=== PATIENT | male | born 1950 | race Caucasian/White ===

== ENCOUNTER 2023-01-11 10:25 | Emergency (ER) | payer OTHER ==
--- OUTSIDE RECORDS SUMMARY | 2023-01-11 10:33 | XMS REPORT | Continuity of Care Document ---
:1950 Author Organization [facility] t Address [address] [place] [address] [place] [id number] Care Team Providers Name Role Phone Cheikh Gutierrez Attending Clinician Unavailable Cheikh Gutierrez Admitting Clinician Unavailable Physician, No Primary or Family Admitting Clinician Unavaila ble Payers Payer Name Policy Type Policy Number Effective Date Expiration Date S ource Problems This patient has no known problems. Allergies, Adverse Reactions, Alerts Allergy Allergy Status Severity Reaction(s) Onset Inactive Treating Comm ents Source Name Type Date Date Clinician No Known DA Active U 2021-07 [facility]- Clear s 00:00: [place] 00 [facility] No Known DA Active U [facility] - [place] s 00:00: d [address] [place] [address] No Known DA Active U 2018- [facility] 2-08 Clear s 00:00: [place] 00 [facility] Medications This patient has no known medications. Procedures This patient has no known procedures. Encounters Start End Encounter Admission Attending Care Care Encounter Source Date/Time Date/Time Type Type Clinicians Facility Department ID 2022-05-30 2022-06-11 Inpatient EM LETY Gutierrez INTE.02 [id number] [facility] 01:41:00 13:02:00 Cheikh 62 [facility] 2022-05-31 2022-05-31 Outpatient EDILIA Gutierrez LABO [id number] [facility] 07:53:00 07:53:00 Cheikh 65 [facility] Results Test Description Test Time Test Comments Results Result Comments Source GLUCOSE BEDSIDE TESTING 2022-06-11 08:24:00 Test Item Value Reference Range Interpretation Comme nts GLUCOSE BEDSIDE TESTING (test code = GLUBED) 139 mg/dL 70-110 H GLUCOSE BEDSIDE [id number] 21:09:00 Test Item Value Reference Range Interpretation Comments GLUCOSE BEDSIDE TESTING (test code 140 mg/dL 70-110 H = GLUBED) GLUCOSE BEDSIDE [id number] 17:24:00 Test Item Value Reference Range Interpretation Comments GLUCOSE BEDSIDE TESTING (test code 161 mg/dL 70-110 H = GLUBED) GLUCOSE BEDSIDE [id number] 12:02:00 Test Item Value Reference Range Interpretation Comments GLUCOSE BEDSIDE TESTING (test code 174 mg/dL 70-110 H = GLUBED) GLUCOSE BEDSIDE [id number] 08:11:00 Test Item Value Reference Range Interpretation Comments GLUCOSE BEDSIDE TESTING (test code 206 mg/dL 70-110 H = GLUBED) GLUCOSE BEDSIDE [id number] 20:56:00 Test Item Value Reference Range Interpretation Comments GLUCOSE BEDSIDE TESTING (test code 185 mg/dL 70-110 H = GLUBED) GLUCOSE BEDSIDE [id number] 16:18:00 Test Item Value Reference Range Interpretation Comments GLUCOSE BEDSIDE TESTING (test code = 77 mg/dL 70-110 N GLUBED) GLUCOSE BEDSIDE [id number] 11:27:00 Test Item Value Reference Range Interpretation Comments GLUCOSE BEDSIDE TESTING (test code 206 mg/dL 70-110 H = GLUBED) GLUCOSE BEDSIDE [id number] 20:22:00 Test Item Value Reference Range Interpretation Comments GLUCOSE BEDSIDE TESTING (test code 111 mg/dL 70-110 H = GLUBED) GLUCOSE BEDSIDE [id number] 17:12:00 Test Item Value Reference Range Interpretation Comments GLUCOSE BEDSIDE TESTING (test code 189 mg/dL 70-110 H = GLUBED) GLUCOSE BEDSIDE [id number] 11:37:00 Test Item Value Reference Range Interpretation Comments GLUCOSE BEDSIDE TESTING (test code 140 mg/dL 70-110 H = GLUBED) GLUCOSE BEDSIDE [id number] 08:13:00 Test Item Value Reference Range Interpretation Comments GLUCOSE BEDSIDE TESTING (test code = 86 mg/dL 70-110 N GLUBED) GLUCOSE BEDSIDE [id number] 21:00:00 Test Item Value Reference Range Interpretation Comments GLUCOSE BEDSIDE TESTING (test code 105 mg/dL 70-110 N = GLUBED) GLUCOSE BEDSIDE [id number] 16:42:00 Test Item Value Reference Range Interpretation Comments GLUCOSE BEDSIDE TESTING (test code 164 mg/dL 70-110 H = GLUBED) GLUCOSE BEDSIDE [id number] 12:33:00 Test Item Value Reference Range Interpretation Comments GLUCOSE BEDSIDE TESTING (test code 142 mg/dL 70-110 H = GLUBED) GLUCOSE BEDSIDE [id number] 07:44:00 Test Item Value Reference Range Interpretation Comments GLUCOSE BEDSIDE TESTING (test code 131 mg/dL 70-110 H = GLUBED) GLUCOSE BEDSIDE [id number] 20:25:00 Test Item Value Reference Range Interpretation Comments GLUCOSE BEDSIDE TESTING (test code 147 mg/dL 70-110 H = GLUBED) GLUCOSE BEDSIDE [id number] 17:00:00 Test Item Value Reference Range Interpretation Comments GLUCOSE BEDSIDE TESTING (test code 181 mg/dL 70-110 H = GLUBED) GLUCOSE BEDSIDE [id number] 11:40:00 Test Item Value Reference Range Interpretation Comments GLUCOSE BEDSIDE TESTING (test code 160 mg/dL 70-110 H = GLUBED) GLUCOSE BEDSIDE [id number] 07:25:00 Test Item Value Reference Range Interpretation Comments GLUCOSE BEDSIDE TESTING (test code 129 mg/dL 70-110 H = GLUBED) GLUCOSE BEDSIDE [id number] 22:36:00 Test Item Value Reference Range Interpretation Comments GLUCOSE BEDSIDE TESTING (test code 157 mg/dL 70-110 H = GLUBED) GLUCOSE BEDSIDE [id number] 12:18:00 Test Item Value Reference Range Interpretation Comments GLUCOSE BEDSIDE TESTING (test code 178 mg/dL 70-110 H = GLUBED) GLUCOSE BEDSIDE [id number] 08:12:00 Test Item Value Reference Range Interpretation Comments GLUCOSE BEDSIDE TESTING (test code 122 mg/dL 70-110 H = GLUBED) GLUCOSE BEDSIDE [id number] 05:55:00 Test Item Value Reference Range Interpretation Comments GLUCOSE BEDSIDE TESTING (test code 146 mg/dL 70-110 H = GLUBED) GLUCOSE BEDSIDE [id number] 22:17:00 Test Item Value Reference Range Interpretation Comments GLUCOSE BEDSIDE TESTING (test code 154 mg/dL 70-110 H = GLUBED) GLUCOSE BEDSIDE [id number] 17:19:00 Test Item Value Reference Range Interpretation Comments GLUCOSE BEDSIDE TESTING (test code 170 mg/dL 70-110 H = GLUBED) GLUCOSE BEDSIDE [id number] 11:47:00 Test Item Value Reference Range Interpretation Comments GLUCOSE BEDSIDE TESTING (test code 139 mg/dL 70-110 H = GLUBED) GLUCOSE BEDSIDE [id number] 06:51:00 Test Item Value Reference Range Interpretation Comments GLUCOSE BEDSIDE TESTING (test code = 97 mg/dL 70-110 N GLUBED) BASIC METABOLIC [id number] 04:49:00 Test Item Value Reference Range Interpretation Comments SODIUM (test code 131 mmol/L 134-147 L = NA) POTASSIUM (test 3.9 mmol/L 3.4-5.0 N code = K) CHLORIDE (test 101 mmol/L 100-108 N code = CL) CARBON DIOXIDE 23 mmol/L 21-32 N (test code = CO2) ANION GAP (test 7.0 GAP calc 4.0-15.0 N code = GAP) GLUCOSE (test code 108 MG/DL 70-110 N = GLU) BLOOD UREA 8 MG/DL 7-18 N NITROGEN (test code = BUN) GLOMERULAR >=60 max >60 The Glomerular FILTRATION RATE estimate estGFR Filtratio n Rate is a (test code = GFR) calculated parameterbased on serum Creatinin e, patient age and sex. GFR valuesless than 60 mL/min/1.73 square meters are lisbet cative ofChronic Kidne y Disease. Values less than 15 mL/min/1.73squa re meters indicate Kidney failure. The calculation for GFR is based on the CK D-EPI (2020) calculat ion. This formulais race indifferent and is the recommended formula for GFR by the National Kidney Foundation for Adults.The GFR will not calculate i f the sex is unknown or if thepatient's ag e is <18 years. CREATININE (test 0.6 MG/DL 0.8-1.3 L code = CREAT) CALCIUM (test code 7.3 MG/DL 8.5-10.1 L = CA) CBC W/AUTO [id number] 04:10:00 Test Item Value Reference Range Interpretation Comments WHITE BLOOD CELL (test code = 6.1 K/mm3 3.5-11.0 N WBC) RED BLOOD CELL (test code = 3.47 M/mm3 4.70-6.10 L RBC) HEMOGLOBIN (test code = HGB) 8.5 G/DL 12.3-15.9 L HEMATOCRIT (test code = HCT) 26.9 % 35.8-46.7 L MEAN CELL VOLUME (test code = 77.5 Fl 86.3-98.9 L MCV) MEAN CELL HGB (test code = MCH) 24.5 pg 28.9-34.4 L MEAN CELL HGB CONCETRATION 31.6 G/DL 32.1-34.5 L (test code = MCHC) RED CELL DISTRIBUTION WIDTH 18.4 SD 11.5-14.5 H (test code = RDW) PLATELET COUNT (test code = 143 K/mm3 150-450 L PLT) MEAN PLATELET VOLUME (test code 10.70 fL 7.0-9.6 H = MPV) NEUTROPHIL % (test code = NT%) 69.1 % 40-76 N IMMATURE GRANULOCYTE % (test 1.1 % 0.0-5.0 N code = IG%) LYMPHOCYTE % (test code = LY%) 13.6 % 20.5-51.1 L MONOCYTE % (test code = MO%) 10.3 % 1.7-9.3 H EOSINOPHIL % (test code = EO%) 4.9 % 0.0-6.0 N BASOPHIL % (test code = BA%) 1.0 % 0.0-2.0 N NUCLEATED RBC % (test code = 0.0 /100WBC% 0.0-1.0 N NRBC%) NEUTROPHIL # (test code = NT#) 4.2 K/mm3 1.8-7.6 N IMMATURE GRANULOCYTE # (test 0.07 x10 3/uL 0.00-0.03 H code = IG#) LYMPHOCYTE # (test code = LY#) 0.8 K/mm3 0.6-3.0 N MONOCYTE # (test code = MO#) 0.6 K/mm3 0.2-1.5 N EOSINOPHIL # (test code = EO#) 0.3 K/mm3 0.0-0.4 N BASOPHIL # (test code = BA#) 0.1 K/mm3 0.0-0.2 N NUCLEATED RBC # (test code = 0.0 K/mm3 0.00-0.01 N NRBC#) MANUAL DIFF REQUIRED (test code NO DIFF/SCN CRITERIA = MDIFF) GLUCOSE BEDSIDE [id number] 20:43:00 Test Item Value Reference Range Interpretation Comments GLUCOSE BEDSIDE TESTING (test code 218 mg/dL 70-110 H = GLUBED) GLUCOSE BEDSIDE [id number] 18:31:00 Test Item Value Reference Range Interpretation Comments GLUCOSE BEDSIDE TESTING (test code 118 mg/dL 70-110 H = GLUBED) GLUCOSE BEDSIDE [id number] 11:16:00 Test Item Value Reference Range Interpretation Comments GLUCOSE BEDSIDE TESTING (test code 179 mg/dL 70-110 H = GLUBED) GLUCOSE BEDSIDE [id number] 08:01:00 Test Item Value Reference Range Interpretation Comments GLUCOSE BEDSIDE TESTING (test code 126 mg/dL 70-110 H = GLUBED) CBC W/AUTO [id number] 06:17:00 Test Item Value Reference Range Interpretation Comments WHITE BLOOD CELL (test code = 7.7 K/mm3 3.5-11.0 N WBC) RED BLOOD CELL (test code = 3.77 M/mm3 4.70-6.10 L RBC) HEMOGLOBIN (test code = HGB) 9.2 G/DL 12.3-15.9 L HEMATOCRIT (test code = HCT) 29.0 % 35.8-46.7 L MEAN CELL VOLUME (test code = 76.9 Fl 86.3-98.9 L MCV) MEAN CELL HGB (test code = MCH) 24.4 pg 28.9-34.4 L MEAN CELL HGB CONCETRATION 31.7 G/DL 32.1-34.5 L (test code = MCHC) RED CELL DISTRIBUTION WIDTH 17.0 SD 11.5-14.5 H (test code = RDW) PLATELET COUNT (test code = 195 K/mm3 150-450 N PLT) MEAN PLATELET VOLUME (test code 11.00 fL 7.0-9.6 H = MPV) NEUTROPHIL % (test code = NT%) 67.6 % 40-76 N IMMATURE GRANULOCYTE % (test 0.8 % 0.0-5.0 N code = IG%) LYMPHOCYTE % (test code = LY%) 13.4 % 20.5-51.1 L MONOCYTE % (test code = MO%) 9.3 % 1.7-9.3 N EOSINOPHIL % (test code = EO%) 7.9 % 0.0-6.0 H BASOPHIL % (test code = BA%) 1.0 % 0.0-2.0 N NUCLEATED RBC % (test code = 0.0 /100WBC% 0.0-1.0 N NRBC%) NEUTROPHIL # (test code = NT#) 5.2 K/mm3 1.8-7.6 N IMMATURE GRANULOCYTE # (test 0.06 x10 3/uL 0.00-0.03 H code = IG#) LYMPHOCYTE # (test code = LY#) 1.0 K/mm3 0.6-3.0 N MONOCYTE # (test code = MO#) 0.7 K/mm3 0.2-1.5 N EOSINOPHIL # (test code = EO#) 0.6 K/mm3 0.0-0.4 H BASOPHIL # (test code = BA#) 0.1 K/mm3 0.0-0.2 N NUCLEATED RBC # (test code = 0.0 K/mm3 0.00-0.01 N NRBC#) MANUAL DIFF REQUIRED (test code NO DIFF/SCN CRITERIA = MDIFF) GLUCOSE BEDSIDE [id number] 20:13:00 Test Item Value Reference Range Interpretation Comments GLUCOSE BEDSIDE TESTING (test code 221 mg/dL 70-110 H = GLUBED) GLUCOSE BEDSIDE [id number] 16:23:00 Test Item Value Reference Range Interpretation Comments GLUCOSE BEDSIDE TESTING (test code 128 mg/dL 70-110 H = GLUBED) GLUCOSE BEDSIDE [id number] 11:31:00 Test Item Value Reference Range Interpretation Comments GLUCOSE BEDSIDE TESTING (test code 188 mg/dL 70-110 H = GLUBED) GLUCOSE BEDSIDE [id number] 07:44:00 Test Item Value Reference Range Interpretation Comments GLUCOSE BEDSIDE TESTING (test code 168 mg/dL 70-110 H = GLUBED) CBC W/AUTO [id number] 02:01:00 Test Item Value Reference Range Interpretation Comments WHITE BLOOD CELL (test code = 6.5 K/mm3 3.5-11.0 N WBC) RED BLOOD CELL (test code = 3.80 M/mm3 4.70-6.10 L RBC) HEMOGLOBIN (test code = HGB) 9.2 G/DL 12.3-15.9 L HEMATOCRIT (test code = HCT) 29.7 % 35.8-46.7 L MEAN CELL VOLUME (test code = 78.2 Fl 86.3-98.9 L MCV) MEAN CELL HGB (test code = MCH) 24.2 pg 28.9-34.4 L MEAN CELL HGB CONCETRATION 31.0 G/DL 32.1-34.5 L (test code = MCHC) RED CELL DISTRIBUTION WIDTH 16.7 SD 11.5-14.5 H (test code = RDW) PLATELET COUNT (test code = 180 K/mm3 150-450 N PLT) MEAN PLATELET VOLUME (test code 9.90 fL 7.0-9.6 H = MPV) NEUTROPHIL % (test code = NT%) 70.8 % 40-76 N IMMATURE GRANULOCYTE % (test 0.6 % 0.0-5.0 N code = IG%) LYMPHOCYTE % (test code = LY%) 11.9 % 20.5-51.1 L MONOCYTE % (test code = MO%) 9.6 % 1.7-9.3 H EOSINOPHIL % (test code = EO%) 6.2 % 0.0-6.0 H BASOPHIL % (test code = BA%) 0.9 % 0.0-2.0 N NUCLEATED RBC % (test code = 0.0 /100WBC% 0.0-1.0 N NRBC%) NEUTROPHIL # (test code = NT#) 4.6 K/mm3 1.8-7.6 N IMMATURE GRANULOCYTE # (test 0.04 x10 3/uL 0.00-0.03 H code = IG#) LYMPHOCYTE # (test code = LY#) 0.8 K/mm3 0.6-3.0 N MONOCYTE # (test code = MO#) 0.6 K/mm3 0.2-1.5 N EOSINOPHIL # (test code = EO#) 0.4 K/mm3 0.0-0.4 N BASOPHIL # (test code = BA#) 0.1 K/mm3 0.0-0.2 N NUCLEATED RBC # (test code = 0.0 K/mm3 0.00-0.01 N NRBC#) MANUAL DIFF REQUIRED (test code NO DIFF/SCN CRITERIA = MDIFF) GLUCOSE BEDSIDE [id number] 20:22:00 Test Item Value Reference Range Interpretation Comments GLUCOSE BEDSIDE TESTING (test code 108 mg/dL 70-110 N = GLUBED) GLUCOSE BEDSIDE [id number] 12:05:00 Test Item Value Reference Range Interpretation Comments GLUCOSE BEDSIDE TESTING (test code 172 mg/dL 70-110 H = GLUBED) CBC W/AUTO [id number] 09:34:00 Test Item Value Reference Range Interpretation Comments WHITE BLOOD CELL (test code = 5.9 K/mm3 3.5-11.0 N WBC) RED BLOOD CELL (test code = 3.93 M/mm3 4.70-6.10 L RBC) HEMOGLOBIN (test code = HGB) 9.4 G/DL 12.3-15.9 L HEMATOCRIT (test code = HCT) 29.8 % 35.8-46.7 L MEAN CELL VOLUME (test code = 75.8 Fl 86.3-98.9 L MCV) MEAN CELL HGB (test code = MCH) 23.9 pg 28.9-34.4 L MEAN CELL HGB CONCETRATION 31.5 G/DL 32.1-34.5 L (test code = MCHC) RED CELL DISTRIBUTION WIDTH 16.6 SD 11.5-14.5 H (test code = RDW) PLATELET COUNT (test code = 159 K/mm3 150-450 N PLT) MEAN PLATELET VOLUME (test code 10.30 fL 7.0-9.6 H = MPV) NEUTROPHIL % (test code = NT%) 67.8 % 40-76 N IMMATURE GRANULOCYTE % (test 0.7 % 0.0-5.0 N code = IG%) LYMPHOCYTE % (test code = LY%) 13.6 % 20.5-51.1 L MONOCYTE % (test code = MO%) 10.9 % 1.7-9.3 H EOSINOPHIL % (test code = EO%) 6.3 % 0.0-6.0 H BASOPHIL % (test code = BA%) 0.7 % 0.0-2.0 N NUCLEATED RBC % (test code = 0.0 /100WBC% 0.0-1.0 N NRBC%) NEUTROPHIL # (test code = NT#) 4.0 K/mm3 1.8-7.6 N IMMATURE GRANULOCYTE # (test 0.04 x10 3/uL 0.00-0.03 H code = IG#) LYMPHOCYTE # (test code = LY#) 0.8 K/mm3 0.6-3.0 N MONOCYTE # (test code = MO#) 0.6 K/mm3 0.2-1.5 N EOSINOPHIL # (test code = EO#) 0.4 K/mm3 0.0-0.4 N BASOPHIL # (test code = BA#) 0.0 K/mm3 0.0-0.2 N NUCLEATED RBC # (test code = 0.0 K/mm3 0.00-0.01 N NRBC#) MANUAL DIFF REQUIRED (test code NO DIFF/SCN CRITERIA = MDIFF) GLUCOSE BEDSIDE [id number] 08:06:00 Test Item Value Reference Range Interpretation Comments GLUCOSE BEDSIDE TESTING (test code 149 mg/dL 70-110 H = GLUBED) GLUCOSE BEDSIDE [id number] 21:06:00 Test Item Value Reference Range Interpretation Comments GLUCOSE BEDSIDE TESTING (test code 190 mg/dL 70-110 H = GLUBED) GLUCOSE BEDSIDE [id number] 17:03:00 Test Item Value Reference Range Interpretation Comments GLUCOSE BEDSIDE TESTING (test code 173 mg/dL 70-110 H = GLUBED) THROMBOPLASTIN TIME [id number] 07:42:00 Test Item Value Reference Range Interpretation Comments THROMBOPLASTIN TIME PARTIAL 84.9 SECONDS 26-35 H (test code = PTT) TROP-I HIGH [id number] 05:07:00 Test Item Value Reference Range Interpretation Comments TROP-I HIGH 61.6 ng/L 0-54 H CAUTION: Units of the SENSITIVITY (test current te st methodology code = TROPIHS) (ng/L) diffe rfrom the prior test meth odology (ng/mL) by a fa ctor of 1000. 99t h Percentile Uppe r Reference Limit (URL):Fem ales: 34 ng/LMales: 54 n g/L In order to distin guish acute elevations of h igh sensitivitytrop onin from other clinical conditions, the FourthUnive rsal Definition of M yocardial Infarction stressesclinica l assessment and the demonstration o f a rise and/orfall in s erial troponin result s above the URL. Results fr om different metho dologies should not be c omparedto one another as quantitative re sults and URLs may varyby method. Completed by Nursing: Asha Arias Result: .Performed By: .If Critical Value, Physician Notified: .Date & Time Test Performed: .CBC W/AUTO [id number] 04:52:00 Test Item Value Reference Range Interpretation Comments WHITE BLOOD CELL (test code = 5.9 K/mm3 3.5-11.0 N WBC) RED BLOOD CELL (test code = 3.35 M/mm3 4.70-6.10 L RBC) HEMOGLOBIN (test code = HGB) 8.1 G/DL 12.3-15.9 L HEMATOCRIT (test code = HCT) 26.1 % 35.8-46.7 L MEAN CELL VOLUME (test code = 77.9 Fl 86.3-98.9 L MCV) MEAN CELL HGB (test code = MCH) 24.2 pg 28.9-34.4 L MEAN CELL HGB CONCETRATION 31.0 G/DL 32.1-34.5 L (test code = MCHC) RED CELL DISTRIBUTION WIDTH 16.4 SD 11.5-14.5 H (test code = RDW) PLATELET COUNT (test code = 165 K/mm3 150-450 N PLT) MEAN PLATELET VOLUME (test code 10.20 fL 7.0-9.6 H = MPV) NEUTROPHIL % (test code = NT%) 67.6 % 40-76 N IMMATURE GRANULOCYTE % (test 1.0 % 0.0-5.0 N code = IG%) LYMPHOCYTE % (test code = LY%) 14.4 % 20.5-51.1 L MONOCYTE % (test code = MO%) 9.1 % 1.7-9.3 N EOSINOPHIL % (test code = EO%) 7.1 % 0.0-6.0 H BASOPHIL % (test code = BA%) 0.8 % 0.0-2.0 N NUCLEATED RBC % (test code = 0.0 /100WBC% 0.0-1.0 N NRBC%) NEUTROPHIL # (test code = NT#) 4.0 K/mm3 1.8-7.6 N IMMATURE GRANULOCYTE # (test 0.06 x10 3/uL 0.00-0.03 H code = IG#) LYMPHOCYTE # (test code = LY#) 0.9 K/mm3 0.6-3.0 N MONOCYTE # (test code = MO#) 0.5 K/mm3 0.2-1.5 N EOSINOPHIL # (test code = EO#) 0.4 K/mm3 0.0-0.4 N BASOPHIL # (test code = BA#) 0.1 K/mm3 0.0-0.2 N NUCLEATED RBC # (test code = 0.0 K/mm3 0.00-0.01 N NRBC#) MANUAL DIFF REQUIRED (test code NO DIFF/SCN CRITERIA = MDIFF) THROMBOPLASTIN TIME [id number] 00:12:00 Test Item Value Reference Range Interpretation Comments THROMBOPLASTIN TIME PARTIAL 37.0 SECONDS 26-35 H (test code = PTT) PROTHROMBIN [id number] 23:24:00 Test Item Value Reference Range Interpretation Comments PT PATIENT (test 12.8 SECONDS 9.3-12.9 N code = PTP) INTERNATIONAL NORMAL 1.12 INR Unit 0.8-1.2 N TARGE T INR BY RATIO (test code = INDICATIO N Indication INR) INR1. Prophylax is of venous thrombos is 2.0 - 3.0 (orthoped ic surgery), Proph ylaxis of venous throm bosis (other than hig h-risk surgery), Treat ment of Deep Vein Thrombosis/Pulm onary Embolism, Preve ntion of systemic emb olism - Tissue heart va lves, Acute Myocardia l Infarction (to prevent systemic emboli sm), Valvular heart disease, Acute Myocardial Infa rction (to prevent sys temic embolism), Valv ular heart disease, Atrial Fibrillation, Bileaflet mecha nical valve in aortic position.2. Mec hanical prosthetic valv es (high risk), 2. 5 - 3.5 Presence of Lup us Anticoagulant o r Antiphospholipi d Antibodies, Pre vention of systemic emb olism - Acute Myocardia l Infarction (to prevent recurrent infar ct). TROP-I HIGH [id number] 18:28:00 Test Item Value Reference Range Interpretation Comments TROP-I HIGH 100.1 ng/L 0-54 H CAUTION: Units of the SENSITIVITY (test current te st methodology code = TROPIHS) (ng/L) diffe rfrom the prior test meth odology (ng/mL) by a fa ctor of 1000. 9 9th Percentile Uppe r Reference Limit (URL):Females: 34 ng/LMales: 54 n g/L In order to distin guish acute elevation s of high sensitivitytrop onin from other clinical conditions, the FourthUniversal Definition of M yocardial Infarction stressesclinica l assessment and the demonstration o f a rise and/orfall in s erial troponin result s above the URL. Result s from different metho dologies should not be c omparedto one another as quantitative re sults and URLs may varyby method. Completed by Nursing: NOGLUCOSE BEDSIDE [id number] 16:45:00 Test Item Value Reference Range Interpretation Comments GLUCOSE BEDSIDE TESTING (test code 188 mg/dL 70-110 H = GLUBED) - MRI BRAIN W/O [id number] 15:22:00 [facility] 1950 Sex: M FAX:Eddi Guerra MD [phone] Camps: PM St: ADM FAX: Cheikh Gutierrez MD [phone] Name: [facility] : 1950 Age/S: 71/M [address] [place] Unit #: [id number] Loc: [place] [address] Phys: Eddi Hoff MD Acct: [id number] Dis Date: Status: ADM IN PHONE #: [phone] Exam Date: 1440 FAX #: Reason: possible cva EXAMS: CPT: [id number] MRI BRAIN W/O CONTRAST [id number] EXAM: -MRI BRAIN W/O CONTRAST CLINICAL INDICATION: possible cva TECHNIQUE: Multiplanar, multisequence MR imaging of the brain was performed utilizing the following imaging sequences: Axial T1, T2, FLAIR, GRE, and DWI; sagittal and coronal T1-weighted images. COMPARISON: CT head and CTA head/neck 05/29/2022 LOCATION: U19 FINDINGS: No evidence of acute infarct. Left frontal lobe encephalomalacia noted. Mildincreased T2 signal involving the medial right cerebellum, favoring crossed cerebellar diaschisis. No acute intracranial hemorrhage or extra-axial fluid collections identified. There is a 2.1 x 1.9 cm extra-axial mass noted at the left frontoparietal convexity, favoring meningioma. No midline shift orherniation. There is moderate cerebral volume loss with associated ex vacuo dilation of the lateral ventricles. The major vessel T2 flow-voids are well-maintained throughout the brain. The globes are in tact and symmetric in volume with no evidence of pre or post septal pathology. There is evidence of prior bilateral cataract surgery. There is complete fluid opacification of the left sphenoid sinus and left posterior ethmoid air cells. Minimal because of thickening in the dependent left maxillary sinus. The mastoid air cells are clear. IMPRESSION: No evidence of acute infarct or hemorrhage. Moderatecerebral volume loss. Left frontoparietal convexity meningioma again noted. 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 PAGE 1 Signed Report (CONTINUED) FAX: Eddi Guerra MD [phone] Camps: PM St: ADM FAX: Cheikh Gutierrez MD [phone] [facility] [place] [facility] 1950 Age/S: 71/M [id number] Unit #: [id number] Loc: [place] [address] Phys:Eddi Hoff MD Acct: [id number] Dis Date: Status: ADM IN PHONE #: [phone] Exam Date: 05/30/2022 1440 FAX #: Reason: possible cva EXAMS: CPT: [id number] MRI BRAIN W/O CONTRAST [id number] (Continued) at 1522 Reported and signed by: Jun Vincent D.O. CC: Eddi Hoff MD; Cheikh Gutierrez MD Technologist: Karsten Camacho, RT(R)(CT)(MR) Tr anscribed Date/Time/By: 05/30/2022 (1522) :[email or web address] Orig Print D/T: S: 05/30/2022 (2663) PAGE 2 Signed ReportTHROMBOPLASTIN TIME [id number] 15:09:00 Test Item Value Reference Range Interpretation Comments THROMBOPLASTIN TIME PARTIAL 79.4 SECONDS 26-35 H (test code = PTT) GLUCOSE BEDSIDE [id number] 12:42:00 Test Item Value Reference Range Interpretation Comments GLUCOSE BEDSIDE TESTING (test code 103 mg/dL 70-110 N = GLUBED) GLUCOSE BEDSIDE [id number] 08:23:00 Test Item Value Reference Range Interpretation Comments GLUCOSE BEDSIDE TESTING (test code 192 mg/dL 70-110 H = GLUBED) GLYCOSYLATED HEMOGLOBIN [id number] 06:37:00 Test Item Value Reference Range Interpretation Comments GLYCOSYLATED HEMOGLOBIN (HA1C) 6.0 % A1C 0.0-5.7 H (test code = GLYHGB) ESTIMATED AVERAGE GLUCOSE (test 126 MG/DLest code = EAG) CBC W/AUTO [id number] 05:56:00 Test Item Value Reference Range Interpretation Comments WHITE BLOOD CELL (test code = 6.6 K/mm3 3.5-11.0 N WBC) RED BLOOD CELL (test code = 4.26 M/mm3 4.70-6.10 L RBC) HEMOGLOBIN (test code = HGB) 10.2 G/DL 12.3-15.9 L HEMATOCRIT (test code = HCT) 32.3 % 35.8-46.7 L MEAN CELL VOLUME (test code = 75.8 Fl 86.3-98.9 L MCV) MEAN CELL HGB (test code = MCH) 23.9 pg 28.9-34.4 L MEAN CELL HGB CONCETRATION 31.6 G/DL 32.1-34.5 L (test code = MCHC) RED CELL DISTRIBUTION WIDTH 16.2 SD 11.5-14.5 H (test code = RDW) PLATELET COUNT (test code = 210 K/mm3 150-450 N PLT) MEAN PLATELET VOLUME (test code 9.80 fL 7.0-9.6 H = MPV) NEUTROPHIL % (test code = NT%) 62.1 % 40-76 IMMATURE GRANULOCYTE % (test 0.9 % 0.0-5.0 N code = IG%) LYMPHOCYTE % (test code = LY%) 14.0 % 20.5-51.1 L MONOCYTE % (test code = MO%) 12.2 % 1.7-9.3 H EOSINOPHIL % (test code = EO%) 9.6 % 0.0-6.0 H BASOPHIL % (test code = BA%) 1.2 % 0.0-2.0 N NUCLEATED RBC % (test code = 0.0 /100WBC% 0.0-1.0 N NRBC%) NEUTROPHIL # (test code = NT#) 4.1 K/mm3 1.8-7.6 N IMMATURE GRANULOCYTE # (test 0.06 x10 3/uL 0.00-0.03 H code = IG#) LYMPHOCYTE # (test code = LY#) 0.9 K/mm3 0.6-3.0 N MONOCYTE # (test code = MO#) 0.8 K/mm3 0.2-1.5 N EOSINOPHIL # (test code = EO#) 0.6 K/mm3 0.0-0.4 H BASOPHIL # (test code = BA#) 0.1 K/mm3 0.0-0.2 N NUCLEATED RBC # (test code = 0.0 K/mm3 0.00-0.01 N NRBC#) MANUAL DIFF REQUIRED (test code NO DIFF/SCN CRITERIA = MDIFF) Comment: IF NOT ALREADY DONE WITHIN THE LAST 24 HOURSTHROMBOPLASTIN TIME PARTIAL 2022-05-30 05:50:00 Test Item Value Reference Range Interpretation Comments THROMBOPLASTIN TIME PARTIAL 27.6 SECONDS 26-35 N (test code = PTT) BASIC METABOLIC [id number] 05:43:00 Test Item Value Reference Range Interpretation Comments SODIUM (test code 135 mmol/L 134-147 N = NA) POTASSIUM (test 3.7 mmol/L 3.4-5.0 N code = K) CHLORIDE (test 102 mmol/L 100-108 code = CL) CARBON DIOXIDE 27 mmol/L 21-32 N (test code = CO2) ANION GAP (test 6.0 GAP calc 4.0-15.0 N code = GAP) GLUCOSE (test code 123 MG/DL 70-110 H = GLU) BLOOD UREA 5 MG/DL 7-18 L NITROGEN (test code = BUN) GLOMERULAR >=60 max >60 The Glomerular FILTRATION RATE estimate estGFR Filtratio n Rate is a (test code = GFR) calculated parameterbased on serum Creatinin e, patient age and sex. GFR valuesless than 60 mL/min/1.73 square meters are lisbet cative ofChronic Kidne y Disease. Values less than 15 mL/min/1.73squa re meters indicate Kidney failure. The calculation for GFR is based on the CK D-EPI (2020) calculat ion. This formulais race indifferent and is the recommended formula for GFR by the National Kidney Foundation for Adults.The GFR will not calculate i f the sex is unknown or if thepatient's ag e is <18 years. CREATININE (test 0.8 MG/DL 0.8-1.3 N code = CREAT) CALCIUM (test code 8.9 MG/DL 8.5-10.1 N = CA) LIPID PROFILE (CORONARY RISK)2022-05-30 05:43:00 Test Item Value Reference Range Interpretation Comments TRIGLYCERIDES (test 71 MG/DL 0-150 N code = TRIG) CHOLESTEROL (test 92 MG/DL 133-200 L code = CHOL) CHOLESTEROL/HDL 1.96 RATIO See_Comment RISK ASSOCIA VENTURA WITH RATIO (test code = CHOL/HDL RATIOS: RISK CHOLHDL) MALE FEMALE1/2 AVERAGE 3.43 3.27AVERAG E 4.97 4.442X AVERAGE 9.55 7.053X AVERAGE 23.39 11.04 NOTE THAT THE REFERENCE VALUE IS RELATED TO RISK LEVELS ASRECOMMENDED B Y THE [facility] . [Automated mess age] The system which [employer] nerated this result tra nsmitted reference range : 0-. The reference range was not used to interpr et this result as normal/abnormal . HDL CHOLESTEROL 47 MG/DL 40-59 N (test code = HDL) NON-HDL CHOLESTEROL 45 mg/dL <130 (test code = NHDL) LIPOPROTEIN LDL 43 MG/DL 0-129 N <100 OPTIMAL 100 - 129 (test code = LDL) NEAR OPTIM AL/ABOVE [id number] - 15 9 [id number] - 189 HIGH>OR= 190 VE RY HIGHNOTE THAT G UIDELINES ARE PROVIDED BY NATIONAL CHOLESTEROLEDUC ATION PROGRAM ADULT T REATMENT PANEL III LDL/HDL (test code 0.91 Ratio See_Comment L [Automat ed message] The = LDL/HDL) system which [employer] nerated this result tra nsmitted reference range : 1.48-3.22 Avg. The reference range was not used to interpr et this result as normal/abnormal . TROP-I HIGH [id number] 04:54:00 Test Item Value Reference Range Interpretation Comments TROP-I HIGH 223.5 ng/L 0-54 HH CAUTION: Units of the SENSITIVITY (test current te st methodology code = TROPIHS) (ng/L) diffe rfrom the prior test meth odology (ng/mL) by a fa ctor of 1000. 9 9th Percentile Uppe r Reference Limit (URL):Females: 34 ng/LMales: 54 n g/L In order to distin guish acute elevation s of high sensitivitytrop onin from other clinical conditions, the FourthUniversal Definition of M yocardial Infarction stressesclinica l assessment and the demonstration o f a rise and/orfall in s erial troponin result s above the URL. Result s from different metho dologies should not be c omparedto one another as quantitative re sults and URLs may varyby method. Completed by Nursing: Asha Arias Result: .Performed By: .If Critical Value, Physician Notified: .Date & Time Test Performed: .UA RFLX MICR CULT IF [id number] 17:15:00 Test Item Value Reference Range Interpretation Comments UA COLOR (test code = YELLOW discript YEL/STRAW COLU) UA APPEARANCE (test code HAZY discript CLEAR A = APPU) UA GLUCOSE DIPSTICK (test NEGATIVE mg/dL NEG code = DGLUU) UA BILIRUBIN DIPSTICK NEGATIVE mg/dL NEG (test code = BILU) UA KETONE DIPSTICK (test NEGATIVE mg/dL NEG code = KETU) UA SPECIFIC GRAVITY (test <=1.005 SG 1.005-1.030 code = SGU) UA BLOOD DIPSTICK (test 1+ mg/DL NEG A code = ISAURA) UA PH DIPSTICK (test code 7.5 pH UNITS 5.0-7.0 A = RAKESH) UA PROTEIN DIPSTICK (test NEGATIVE mg/dL NEG code = PROU) UA UROBILINIOGEN DIPSTICK 0.2 mg/dL <2.0 (test code = URO) UA NITRITE DIPSTICK (test NEGATIVE SCREEN NEG code = FABIANA) UA LEUKOCYTE ESTERASE NEGATIVE Leuk/mcL NEGATIVE DIPSTICK (test code = LEUU) UA CULTURE NEEDED? (test NO, WBC<10 Criteria Culture CHK code = UACULT) UA WBC (test code = WBCU) 0-1 #WBC/HPF 0-3 UA RBC (test code = RBCU) 5-10 #RBC/HPF 0-3 A UA BACTERIA (test code = 1+ /HPF NONE-TRACE A BACU) UA SQUAMOUS CELLS (test TRACE /HPF NONE code = SQU) UA MUCUS (test code = TRACE /LPF NONE SEEN MUCU) Indication for culture: Suprapubic PainBASIC METABOLIC [id number] 16:03:00 Test Item Value Reference Range Interpretation Comments SODIUM (test code 129 mmol/L 134-147 L = NA) POTASSIUM (test 3.7 mmol/L 3.4-5.0 N code = K) CHLORIDE (test 93 mmol/L 100-108 L code = CL) CARBON DIOXIDE 29 mmol/L 21-32 N (test code = CO2) ANION GAP (test 7.0 GAP calc 4.0-15.0 N code = GAP) GLUCOSE (test code 168 MG/DL 70-110 H = GLU) BLOOD UREA 8 MG/DL 7-18 N NITROGEN (test code = BUN) GLOMERULAR >=60 max >60 The Glomerular FILTRATION RATE estimate estGFR Filtratio n Rate is a (test code = GFR) calculated parameterbased on serum Creatinin e, patient age and sex. GFR valuesless than 60 mL/min/1.73 square meters are lisbet cative ofChronic Kidne y Disease. Values less than 15 mL/min/1.73squa re meters indicate Kidney failure. The calculation for GFR is based on the CK D-EPI (2020) calculat ion. This formulais race indifferent and is the recommended formula for GFR by the National Kidney Foundation for Adults.The GFR will not calculate i f the sex is unknown or if thepatient's ag e is <18 years. CREATININE (test 0.9 MG/DL 0.8-1.3 N code = CREAT) CALCIUM (test code 9.9 MG/DL 8.5-10.1 N = CA) Completed by Nursing: NOTROP-I HIGH [id number] 16:03:00 Test Item Value Reference Range Interpretation Comments TROP-I HIGH 160.5 ng/L 0-54 HH CAUTION: Units of the SENSITIVITY (test current te st methodology code = TROPIHS) (ng/L) diffe rfrom the prior test meth odology (ng/mL) by a fa ctor of 1000. 9 9th Percentile Uppe r Reference Limit (URL):Females: 34 ng/LMales: 54 n g/L In order to distin guish acute elevation s of high sensitivitytrop onin from other clinical conditions, the FourthUniversal Definition of M yocardial Infarction stressesclinica l assessment and the demonstration o f a rise and/orfall in s erial troponin result s above the URL. Result s from different metho dologies should not be c omparedto one another as quantitative re sults and URLs may varyby method. Completed by Nursing: NOTHROMBOPLASTIN TIME [id number] 15:44:00 Test Item Value Reference Range Interpretation Comments THROMBOPLASTIN TIME PARTIAL 28.9 SECONDS 26-35 N (test code = PTT) PROTHROMBIN [id number] 15:44:00 Test Item Value Reference Range Interpretation Comments PT PATIENT (test 12.8 SECONDS 9.3-12.9 N code = PTP) INTERNATIONAL NORMAL 1.12 INR Unit 0.8-1.2 N TARGE T INR BY RATIO (test code = INDICATIO N Indication INR) INR1. Prophylax is of venous thrombos is 2.0 - 3.0 (orthoped ic surgery), Proph ylaxis of venous throm bosis (other than hig h-risk surgery), Treat ment of Deep Vein Thrombosis/Pulm onary Embolism, Preve ntion of systemic emb olism - Tissue heart va lves, Acute Myocardia l Infarction (to prevent systemic emboli sm), Valvular heart disease, Acute Myocardial Infa rction (to prevent sys temic embolism), Valv ular heart disease, Atrial Fibrillation, Bileaflet mecha nical valve in aortic position.2. Mec hanical prosthetic valv es (high risk), 2. 5 - 3.5 Presence of Lup us Anticoagulant o r Antiphospholipi d Antibodies, Pre vention of systemic emb olism - Acute Myocardia l Infarction (to prevent recurrent infar ct). CBC W/AUTO [id number] 15:34:00 Test Item Value Reference Range Interpretation Comments WHITE BLOOD CELL (test code = 8.7 K/mm3 3.5-11.0 N WBC) RED BLOOD CELL (test code = 4.19 M/mm3 4.70-6.10 L RBC) HEMOGLOBIN (test code = HGB) 10.1 G/DL 12.3-15.9 L HEMATOCRIT (test code = HCT) 31.7 % 35.8-46.7 L MEAN CELL VOLUME (test code = 75.7 Fl 86.3-98.9 L MCV) MEAN CELL HGB (test code = MCH) 24.1 pg 28.9-34.4 L MEAN CELL HGB CONCETRATION 31.9 G/DL 32.1-34.5 L (test code = MCHC) RED CELL DISTRIBUTION WIDTH 16.2 SD 11.5-14.5 H (test code = RDW) PLATELET COUNT (test code = 252 K/mm3 150-450 N PLT) MEAN PLATELET VOLUME (test code 10.00 fL 7.0-9.6 H = MPV) NEUTROPHIL % (test code = NT%) 79.9 % 40-76 H IMMATURE GRANULOCYTE % (test 1.2 % 0.0-5.0 N code = IG%) LYMPHOCYTE % (test code = LY%) 7.6 % 20.5-51.1 L MONOCYTE % (test code = MO%) 9.4 % 1.7-9.3 H EOSINOPHIL % (test code = EO%) 1.2 % 0.0-6.0 N BASOPHIL % (test code = BA%) 0.7 % 0.0-2.0 N NUCLEATED RBC % (test code = 0.0 /100WBC% 0.0-1.0 N NRBC%) NEUTROPHIL # (test code = NT#) 6.9 K/mm3 1.8-7.6 N IMMATURE GRANULOCYTE # (test 0.10 x10 3/uL 0.00-0.03 H code = IG#) LYMPHOCYTE # (test code = LY#) 0.7 K/mm3 0.6-3.0 N MONOCYTE # (test code = MO#) 0.8 K/mm3 0.2-1.5 N EOSINOPHIL # (test code = EO#) 0.1 K/mm3 0.0-0.4 N BASOPHIL # (test code = BA#) 0.1 K/mm3 0.0-0.2 N NUCLEATED RBC # (test code = 0.0 K/mm3 0.00-0.01 N NRBC#) MANUAL DIFF REQUIRED (test code NO DIFF/SCN CRITERIA = MDIFF) - CT ANGIO [id number] 14:48:00 [facility] 1950 Sex: M Name: FRAN SANTAMARIA [facility] : 1950 Age/S: 71 / M [address] Unit #: [id number] Loc: [place] [address] Phys: AimeCami C DO Acct: [id number] Dis Date: Status: REG ER PHONE #: [phone] Exam Date: 05/29/2022 1412 FAX #: Reason: ams EXAMS: CPT: [id number] CT ANGIO NECK [address] HISTORY: CVA Technique: Axial tomograms through the neck and brain were obtained after intravenous contrast utilizing a CTA protocol. Three-dimensional and multiplanar reformatted images are provided. Degree of stenosis is calculated based on NASCET criteria. One or more of the following dose reduction techniques were used: Automated exposure control, adjustment of the mA and/or kV according to patient size, and/or utilization of iterative reconstruction technique. Location: C3 COMPARISON:None FINDINGS: CTA NECK: Emphysema is demonstrated. Aortic calcifications are present. The origins of the great vessels are patent. The common carotid arteries are patent throughout the course bilaterally. Onthe right the carotid bifurcation is patent with moderate atherosclerotic changes. No significant stenosis demonstrated. The right internal carotid artery is patent throughout its course to the neck. On the left carotid bifurcation is patent with moderate atherosclerotic changes. There is mild less than 50% narrowing demonstrated involving the proximal left internal carotid artery. The left internal carotid artery is patent throughout its course. Both vertebral artery origins are demonstrated and patent. The vertebral arteries are patent throughout their course bilaterally. CTA BRAIN: The visualized intracranial internal carotid arteries are patent. The PAGE 1 Signed Report (CONTINUED) Name: FRAN SANTAMARIA [facility] : 1950 Age/S: 71 / M [address] [address] Unit #: [id number] Loc: [place] [address] Phys: Cami Salomon DO Acct: [id number] Dis Date: Status: REG ER PHONE #: [phone] Exam Date: 05/29/2022 1412 FAX #: Reason: ams EXAMS: CPT: [id number] CT ANGIO NECK [address] (Continued) anterior cerebral arteries and middle cerebral arteries are patent bilaterally. No aneurysmidentified. No large vessel occlusion or significant intracranial stenosis. An anterior communicating artery is demonstrated. The distal vertebral arteries, basilar artery, and posterior cerebral arteries are patent. The major intracranial venous sinuses are patent. Dural based meningioma at the left vertex is noted. IMPRESSION: 1. Scattered atherosclerotic plaque with mild less than 50% narrowing atthe left carotid bifurcation. No other area of significant stenosis. 2. No intracranial large vesselocclusion. at 1448 Reported and signed by: Olegario Griffith M.D. CC: Cami Salomon DO Technologist:Carolyn Rizzo RT,(R),(CT) CTDI: DLP: Trnscb Date/Time: 05/29/2022 (1448) [email or web address] Orig Print D/T: S: 05/29/2022 (3362) PAGE 2Signed Report- CT ANGIO [id number] 14:48:00 [facility] 1950 Sex: M Name: FRAN SANTAMARIA : 1950 Age/S: 71 / M [address] [address] Unit #: [id number] Loc: [place] [address] Phys: Cami Salomon DO Acct: [id number] Dis Date: Status: REG ER PHONE #: [phone] Exam Date: 05/29/2022 1415 FAX #: Reason: ams EXAMS: CPT: [id number] CT ANGIO HEAD [address] HISTORY: CVA Technique: Axial tomograms through the neck and brain were obtained after intravenous contrast utilizing a CTA protocol. Three-dimensional and multiplanar reformatted images are provided. Degree of stenosis is calculated based on NASCET criteria. One or more of the following dose reduction techniques were used: Automated exposure control, adjustment of the mA and/or kV according to patient size, and/or utilization of iterative reconstruction technique. Location: C3 COMPARISON:None FINDINGS: CTA NECK: Emphysema is demonstrated. Aortic calcifications are present. The origins of the great vessels are patent. The common carotid arteries are patent throughout the course bilaterally. On the right the carotid bifurcation is patent with moderate atherosclerotic changes. No significant stenosis demonstrated. The right internal carotid artery is patent throughout its course to the neck. On the left carotid bifurcation is patent with moderate atherosclerotic changes. There is mild less than 50% narrowing demonstrated involving the proximal left internal carotid artery. The left internalcarotid artery is patent throughout its course. Both vertebral artery origins are demonstrated and patent. The vertebral arteries are patent throughout their course bilaterally. CTA BRAIN: The visualized intracranial internal carotid arteries are patent. The PAGE 1 Signed Report (CONTINUED) Name: FRAN SANTAMARIA : 1950 Age/S: 71 / M [address] [address] Unit #: [id number] Loc: [place] [address] Phys: Cami Salomon DO Acct: [id number] Dis Date: Status: REG ER PHONE #: [phone] Exam Date: 05/29/2022 1415 FAX #: Reason: ams EXAMS: CPT: [id number] CT ANGIO HEAD [address] (Continued) anterior cerebral arteries and middle cerebral arteries are patent bilaterally. No aneurysmidentified. No large vessel occlusion or significant intracranial stenosis. An anterior communicating artery is demonstrated. The distal vertebral arteries, basilar artery, and posterior cerebral arteries are patent. The major intracranial venous sinuses are patent. Dural based meningioma at the left vertex is noted. IMPRESSION: 1. Scattered atherosclerotic plaque with mild less than 50% narrowing atthe left carotid bifurcation. No other area of significant stenosis. 2. No intracranial large vesselocclusion. at 1448 Reported and signed by: Olegario Griffith M.D. CC: Cami Salomon DO Technologist:Carolyn Rizzo, RT,(R),(CT) CTDI: DLP: Trnscb Date/Time: 05/29/2022 (1447) [email or web address] Orig Print D/T: S: 05/29/2022 (1735) PAGE 2Signed Report- XR CHEST 1 [id number] 14:44:00 [facility] 1950 Sex: M Name: FRAN SANTAMARIA [facility] : 1950 Age/S: 71 / M [address] [address] Unit #: [id number] Loc: [place] [address] Phys: Cami Salomon DO Acct: [id number] Dis Date: Status: REG ER PHONE #: [phone] Exam Date: 05/29/2022 1421 FAX #: Reason: Code Stroke EXAMS: CPT: [id number] XR CHEST1 V 25419 Fluoro Time: DAP (Gy m2): Air Kerma (mGy): HISTORY: CVA Location: C3 COMPARISON:08/08/2018 FINDINGS: Aortic calcifications are present. Heart size and vascularity are within normal limits. Thelungs are clear of focal consolidation. No effusion, pneumothorax, or acute osseous abnormality. IMPRESSION: 1. Stable chest. No focal consolidation. at 1444 Reported and signed by: Olegario Griffith M.D. CC: Cami Salomon DO PAGE 1 Signed Report Name: FRAN SANTAMARIA [facility] : 1950 Age/S: 71 / M [id number] [address] Unit #: [id number] Loc: [place] [address] Phys: Cami Salomon DO Acct: [id number] Dis Date: Status: REG ER PHONE #: [phone] Exam Date: 05/29/2022 1421 FAX #: Reason: Code Stroke EXAMS:CPT: [id number] XR CHEST 1 V 74513 Fluoro Time: DAP (Gy m2): Air Kerma (mGy): (Continued) Technologist: BK BROOKS Trnscb Date/Time: 05/29/2022 (1444) [email or web address].[email or web address] PAGE 2 Signed Report- CT HEAD/BRAIN W/O CONT 2022-05-29 14:43:00 [facility] 1950 Sex: M Name: FRAN SANTAMARIA [facility] : 1950 Age/S: 71 / M [address] Unit #: [id number] Loc: [place] [address] Phys: Cami Salomon DO Acct: [id number] Dis Date: Status: REG ER PHONE #: [phone] Exam Date: 05/29/2022 1405 FAX #: Reason: ams EXAMS: CPT: [id number] CT HEAD/BRAIN W/OCONT 338[address] Location code: H5 CT Brain Without Contrast Indication: ams Comparison: None Technical factors: Axial images were obtained from the base of the skull to the vertex. Sagittal and coronal reconstruction. This exam was performed according to our departmental dose-optimization program, which includes automated exposure control, adjustment of the mA and/or kV according to patient size and/or use of iterative reconstruction technique. Findings: Ventricles and sulci are of normal caliber for patient age. Demyelination changes in the deep white matter. Left frontal lobe encephalomalacia unchanged No hemorrhage, mass- effect, or abnormal extra-axial fluid collection. No evidence of acute infarct. Calvarium is unremarkable. No confluent otomastoid disease. Orbits are normal in appearance. Paranasal sinuses are clear. Impression: 1. No evidence of acute pathology. 2. Senescent changes. 3. Left frontal encephalomalacia unchanged. PAGE 1 Signed Report (CONTINUED) Name: FRAN SANTAMARIA [facility] [place] : 1950 Age/S: 71 / M [address] [address] Unit #: [id number] Loc: [place] [address] Phys: Cami Salomon DO Acct: [id number] Dis Date: Status: REG ER PHONE #: [phone] Exam Date:05/29/2022 1405 FAX #: Reason: ams EXAMS: CPT: [id number] CT HEAD/BRAIN W/O CONT 81903 (Continued) at 1443 Reported and signed by: David Silverman M.D. CC: Cami Salomon DO Technologist:Carolyn Rizzo RT,(R),(CT) CTDI: DLP: Trnscb Date/Time: 05/29/2022 (1443) [email or web address] Orig Print D/T: S: 05/29/2022 (5325) PAGE 2 SignedReportGLUCOSE BEDSIDE [id number] 07:59:00 Test Item Value Reference Range Interpretation Comments GLUCOSE BEDSIDE TESTING (test code 191 mg/dL 70-110 H = GLUBED) BASIC METABOLIC [id number] 05:11:00 Test Item Value Reference Range Interpretation Comments SODIUM (test code = NA) 136 mmol/L 134-147 N POTASSIUM (test code = 3.6 mmol/L 3.4-5.0 N K) CHLORIDE (test code = 101 mmol/L 100-108 N CL) CARBON DIOXIDE (test 26 mmol/L 21-32 N code = CO2) ANION GAP (test code = 9.0 GAP calc 4.0-15.0 N GAP) GLUCOSE (test code = 171 MG/DL 70-110 H GLU) BLOOD UREA NITROGEN 12 MG/DL 7-18 N (test code = BUN) GLOMERULAR FILTRATION >=60 max estimate >60 RATE (test code = GFR) estGFR CREATININE (test code = 0.9 MG/DL 0.8-1.3 N CREAT) CALCIUM (test code = CA) 7.9 MG/DL 8.5-10.1 L CBC W/AUTO [id number] 05:01:00 Test Item Value Reference Range Interpretation Comments WHITE BLOOD CELL (test code = 6.5 K/mm3 3.5-11.0 N WBC) RED BLOOD CELL (test code = RBC) 3.88 M/mm3 4.70-6.10 L HEMOGLOBIN (test code = HGB) 11.3 G/DL 12.3-15.9 L HEMATOCRIT (test code = HCT) 33.5 % 35.8-46.7 L MEAN CELL VOLUME (test code = 86.3 Fl 86.3-98.9 N MCV) MEAN CELL HGB (test code = MCH) 29.1 pg 28.9-34.4 N MEAN CELL HGB CONCETRATION (test 33.7 G/DL 32.1-34.5 N code = MCHC) RED CELL DISTRIBUTION WIDTH (test 13.4 SD 11.5-14.5 N code = RDW) PLATELET COUNT (test code = PLT) 139.0 K/mm3 150-450 L MEAN PLATELET VOLUME (test code = 11.70 fL 7.0-9.6 H MPV) NEUTROPHIL % (test code = NT%) 65.5 % 40-76 LYMPHOCYTE % (test code = LY%) 14.0 % 20.5-51.1 L MONOCYTE % (test code = MO%) 11.1 % 1.7-9.3 H EOSINOPHIL % (test code = EO%) 8.9 % 0.0-6.0 H BASOPHIL % (test code = BA%) 0.5 % 0.0-2.0 N NEUTROPHIL # (test code = NT#) 4.27 K/mm3 1.8-7.6 N LYMPHOCYTE # (test code = LY#) 0.9 K/mm3 0.6-3.0 N MONOCYTE # (test code = MO#) 0.7 K/mm3 0.2-1.5 N EOSINOPHIL # (test code = EO#) 0.6 K/mm3 0.0-0.4 H BASOPHIL # (test code = BA#) 0.0 K/mm3 0.0-0.2 N MANUAL DIFF REQUIRED (test code = NO DIFF/SCN CRITERIA MDIFF) URINALYSIS [id number] 21:02:00 Test Item Value Reference Range Interpretation Comments UA COLOR (test code = COLU) YELLOW discript YEL/STRAW UA APPEARANCE (test code = CLEAR discript CLEAR APPU) UA GLUCOSE DIPSTICK (test TRACE mg/dL NEG A code = DGLUU) UA BILIRUBIN DIPSTICK (test NEGATIVE mg/dL NEG code = BILU) UA KETONE DIPSTICK (test NEGATIVE mg/dL NEG code = KETU) UA SPECIFIC GRAVITY (test <=1.005 SG 1.005-1.030 code = SGU) UA BLOOD DIPSTICK (test NEGATIVE mg/DL NEG code = ISAURA) UA PH DIPSTICK (test code = 6.0 pH UNITS 5.0-7.0 RAKESH) UA PROTEIN DIPSTICK (test NEGATIVE mg/dL NEG code = PROU) UA UROBILINIOGEN DIPSTICK 0.2 mg/dL <2.0 (test code = URO) UA NITRITE DIPSTICK (test NEGATIVE SCREEN NEG code = FABIANA) UA LEUKOCYTE ESTERASE NEGATIVE Leuk/mcL NEGATIVE DIPSTICK (test code = LEUU) GLUCOSE BEDSIDE [id number] 20:47:00 Test Item Value Reference Range Interpretation Comments GLUCOSE BEDSIDE TESTING (test code 199 mg/dL 70-110 H = GLUBED) GLUCOSE BEDSIDE [id number] 17:00:00 Test Item Value Reference Range Interpretation Comments GLUCOSE BEDSIDE TESTING (test code 219 mg/dL 70-110 H = GLUBED) GLUCOSE BEDSIDE [id number] 13:26:00 Test Item Value Reference Range Interpretation Comments GLUCOSE BEDSIDE TESTING (test code 185 mg/dL 70-110 H = GLUBED) - MRI BRAIN W/O [id number] 11:53:00 FAX: Cheikh Gutierrez MD [phone] Camps: PM St: ADM Name: FRAN SANTAMARIA [facility] : 1950 Age/S: 67/M [address] [address] Unit #: [id number] Loc: [address] [place] [address] Phys: Cheikh Gutierrez MD Acct: [id number] Dis Date: Status: ADM IN PHONE #: [phone] Exam Date: 08/09/2018 1132 FAX #: Reason: Brain Mass EXAMS: CPT: [id number] MRI BRAIN W/O CONTRAST 07305 Location: T 18 MRI brain, 08/09/18 COMPARISON EXAM : Head CT exam 08/08/18 TECHNIQUE: MRI examination of the brain without contrast done performed on a high field magnet. Multiplanar and multisequence technique performed. CLINICAL HISTORY: Brain mass. FINDINGS: There is presence of a focal extra-axial lesion with dural based attachment to the left frontal region seen along the high convexity left frontal lobe. It exhibits restriction with the finding isointense to brain parenchyma on T1-weighted imaging and slightly higher than brain on T2-weighted imaging. It measures 2.1 cm in AP dimension by 2.1 cm in transverse size by approximately 12 mm in cc dimension and is likely indicative of a dural-based meningioma. It exhibits minimal localmass effect on the left frontal lobe without associated edema. Old area of infarction is seen in theleft anterior cerebral artery territory. This is of moderate size with cystic encephalomalacia. No acute vascular insult is identified in this patient. Chronic microvascular changes even seen extendingalong the left GANTRY RIGGER territory. There is a tiny old lacunar infarct in the left GANTRY RIGGER territory. There is normal flow void involving the major arterial and venous structures. Small degree of chronic microvascular changes in the chris. Atrophy for stated age. Chronic microvascular changes of a least small degree in the frontal regions. IMPRESSION: Findings likely reflective a small dural based meningioma centered laterally along the high convexity left frontal region measuring 2.1 x 2.1 x 1.2 cm in size with minimal local mass effect without associated edema. The finding exhibits restriction typical for a meningioma. No other space-occupying process. Doubt other extra-axial lesions accounting for the findings PAGE 1 Signed Report (CONTINUED) FAX: Cheikh Gutierrez MD [phone] Camps: PM St: ADM------- Name: FRAN SANTAMARIA [facility] : 1950 Age/S: 67/M [address] Unit #: [id number] Loc: [address] [place] [address] Phys: Cheikh Gutierrez MD Acct: [id number] Dis Date: Status: ADM IN PHONE #: [phone] Exam Date: 08/09/2018 1137 FAX #: Reason: Brain Mass EXAMS: CPT: [id number] MRI BRAIN W/O CONTRAST 06691 (Continued) No acute vascular insult. No intracranial hemorrhage. Old vascular insult in particularthe left FLY territory. Chronic microvascular changes elsewhere. at 1153 Reported and signed by: Daina Viera M.D. CC: Cheikh Gutierrez MD Technologist: Mainor Schreiber RT(R)(CT) Transcribed Date/Time/By: 08/09/2018 (1153) :[email or web address] Orig Print D/T: S: 08/09/2018 (4944) PAGE 2 Signed ReportGLUCOSE BEDSIDE [id number] 07:25:00 Test Item Value Reference Range Interpretation Comments GLUCOSE BEDSIDE TESTING (test code 170 mg/dL 70-110 H = GLUBED) GLUCOSE BEDSIDE [id number] 22:47:00 Test Item Value Reference Range Interpretation Comments GLUCOSE BEDSIDE TESTING (test code 207 mg/dL 70-110 H = GLUBED) COMPREHENSIVE METABOLIC [id number] 20:45:00 Test Item Value Reference Range Interpretation Comments SODIUM (test code = NA) 135 mmol/L 134-147 N POTASSIUM (test code = K) 4.0 mmol/L 3.4-5.0 N CHLORIDE (test code = CL) 100 mmol/L 100-108 N CARBON DIOXIDE (test code = 24 mmol/L 21-32 N CO2) ANION GAP (test code = GAP) 11.0 GAP calc 4.0-15.0 N GLUCOSE (test code = GLU) 238 MG/DL 70-110 H BLOOD UREA NITROGEN (test code 10 MG/DL 7-18 N = BUN) GLOMERULAR FILTRATION RATE 54 estGFR >60 L (test code = GFR) CREATININE (test code = CREAT) 1.4 MG/DL 0.8-1.3 H TOTAL PROTEIN (test code = 6.9 G/DL 6.4-8.2 N PROT) ALBUMIN (test code = ALB) 3.3 G/DL 3.4-5.0 L GLOBULIN (test code = GLOB) 3.6 GM/dL ALBUMIN/GLOBULIN RATIO (test 0.9 RATIO 1.2-2.2 L code = A/G) CALCIUM (test code = CA) 8.0 MG/DL 8.5-10.1 L BILIRUBIN TOTAL (test code = 0.60 MG/DL 0.2-1.2 N BILT) SGOT/AST (test code = AST) 22 Unit/L 15-37 N SGPT/ALT (test code = ALT) 39 Unit/L 12-78 N ALKALINE PHOSPHATASE TOTAL 75 Unit/L 50-136 N (test code = ALKP) Completed by Nursing: [id number] 20:45:00 Test Item Value Reference Range Interpretation Comments MAGNESIUM (test code = MAG) 1.6 MG/DL 1.8-2.4 L Completed by Nursing: NONT PRO-BRAIN NATRIURETIC [id number] 20:45:00 Test Item Value Reference Range Interpretation Comments NT PRO-BRAIN NATRIURETIC PEPTI 559 PG/ML 0-100 H (test code = PROBNP) Completed by Nursing: [id number] 20:45:00 Test Item Value Reference Range Interpretation Comments TROPONIN-I (test 0.023 NG/ML 0.000-0.045 N Negative: < /= 0.045 code = TROPI) Positive: >/= 0.046 Correlation wit h serial results, other cardiac markers, and cl inical findings is nec essary to determine the c linical significance of this result. Quantit ative results using d ifferent methodologies s hould not be compared to one another as nume rical results may yamila yby method. Completed by Nursing: NO- CT HEAD/BRAIN W/O [id number] 20:36:00 Name: KEVONFRAN L [facility] : 1950 Age/S: 67 / M [address] Unit #: [id number] Loc: [place] [address] Phys: Crissy Anders MD Acct: [id number] Dis Date: Status: REG ER PHONE #: [phone] Exam Date: 08/08/20182024 FAX #: Reason: RLE weakness; eval for stroke EXAMS: CPT: [id number] CT HEAD/BRAIN W/O CONT 74336 CT HEAD WITHOUT CONTRAST. HISTORY: RLE weakness; evalfor stroke COMPARISON: No comparison is available. TECHNIQUE: Axial CT images of the head were obtained with coronal and/or sagittal reformatted views. Automated exposure control, iterative reconstruction technique, and/or adjustment of mA and/or kV according to patient's size was utilized for radiation dose reduction. IV CONTRAST: None. Location: R16. FINDINGS: Encephalomalacia within the left frontal lobe within the MCA territory. 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 Mild amount of periventricular and deep white matter hypodensities are seen, these are most commonly associated with chronic, microvascular ischemic changes. Mild generalized atrophy is noted. There is likely an extra-axial lesion towards the vertex the region of the left frontal lobe measuring 1.7 x 1.2 x 1.2 cm. Atherosclerotic calcifications affect the vertebral arteries and carotidsiphons. No other intracranial abnormalities such as hemorrhage, mass, mass effect, hydrocephalus, midline shift, extra-axial fluid collection or secondary signs of an acute infarct are noted. The calvarium and skull base are intact. The paranasal sinus and mastoid air cells are clear. IMPRESSION: No evidence of acute intracranial abnormality. Chronic infarcts within the left parietal and frontal lobes. Extra-axial lesion towards the vertex of the left frontal lobe measuring 1.7 x 1.2 x 1.2 cm, likely related to a meningioma. If not previously assessed, recommend follow-up with an MRI brain without and with contrast. PAGE 1 Signed Report (CONTINUED) Name: FRAN SANTAMARIA [facility] [place] : 1950 Age/S: 67 / M [address] Unit #: [id number] Loc: [place] [address] Phys: Crissy Anders MD Acct: [id number] Dis Date: Status: REG ER PHONE #: [phone] Exam Date: 08/08/20182024 FAX #: Reason: RLE weakness; eval for stroke EXAMS: CPT: [id number] CT HEAD/BRAIN W/O CONT 84455 (Continued) at 2035 Reported and signed by: Hua Anaya M.D. CC: Crissy Anders MD Technologist:RT Matthew(R)(CT) CTDI: DLP: Trnscb Date/Time: 08/08/2018 (2035) [email or web address] Orig Print D/T: S: 08/08/2018 (2038) CTDI: DLP: PAGE 2 Signed Report- XR CHEST 1 V 2018-08-08 20:35:00 Name: FRAN SANTAMARIA [facility] [place] : 1950 Age/S: 67 / M [address] Unit #: [id number] Loc: [place] [address] Phys: Crissy Anders MD Acct: [id number] Dis Date: Status: REG ER PHONE #: [phone] Exam Date: 08/08/20182029 FAX #: Reason: RLE weakness; eval for stroke EXAMS: CPT: [id number] XR CHEST 1 V 98821 Fluoro Time: DAP (Gy m2): Air Kerma (mGy): LOCATION: Q15 HISTORY: 67-year-old male with right lower extremity weakness. COMMENT: A frontal chest radiograph was obtained at the bedside at 8:02 p.m. The lungs are clear and well-aerated. The cardiac silhouette, danelle, a nd mediastinum are within normal limits. The skeleton is intact, and the surrounding soft tissues are unremarkable. Cardiac monitoring leads are present. IMPRESSION: Unremarkable portable examination of the chest. at 2034 Reported and signed by: Olegario Omalley M.D. CC: Crissy Anders MD PAGE 1 Signed Report Name: FRAN SANTAMARIA [facility] : 1950 Age/S: 67 / M [address] Unit #: [id number] Loc: [place] [address] Phys: Crissy Anders MD Acct: [id number] Dis Date: Status: REG ER PHONE #: [phone] Exam Date: 08/08/20182029 FAX #: Reason: RLE weakness; eval for stroke EXAMS: CPT: [id number] XR CHEST 1 V 97666 Fluoro Time: DAP (Gy m2): Air Kerma (mGy): (Continued) Technologist: Damon Kat RT(R)(CT) Trnscb Date/Time: 08/08/2018 (2034) [email or web address] Orig Print D/T: S: 08/08/2018 (2037) PAGE 2 Signed ReportCBC W/AUTO [id number] 20:22:00 Test Item Value Reference Range Interpretation Comments WHITE BLOOD CELL (test code = 11.8 K/mm3 3.5-11.0 H WBC) RED BLOOD CELL (test code = RBC) 4.14 M/mm3 4.70-6.10 L HEMOGLOBIN (test code = HGB) 12.3 G/DL 12.3-15.9 N HEMATOCRIT (test code = HCT) 36.4 % 35.8-46.7 N MEAN CELL VOLUME (test code = 87.9 Fl 86.3-98.9 N MCV) MEAN CELL HGB (test code = MCH) 29.7 pg 28.9-34.4 N MEAN CELL HGB CONCETRATION (test 33.8 G/DL 32.1-34.5 N code = MCHC) RED CELL DISTRIBUTION WIDTH (test 13.4 SD 11.5-14.5 N code = RDW) PLATELET COUNT (test code = PLT) 146.0 K/mm3 150-450 L MEAN PLATELET VOLUME (test code = 10.60 fL 7.0-9.6 H MPV) NEUTROPHIL % (test code = NT%) 85.3 % 40-76 H LYMPHOCYTE % (test code = LY%) 4.8 % 20.5-51.1 L MONOCYTE % (test code = MO%) 8.6 % 1.7-9.3 N EOSINOPHIL % (test code = EO%) 1.0 % 0.0-6.0 N BASOPHIL % (test code = BA%) 0.3 % 0.0-2.0 N NEUTROPHIL # (test code = NT#) 10.02 K/mm3 1.8-7.6 H LYMPHOCYTE # (test code = LY#) 0.6 K/mm3 0.6-3.0 N MONOCYTE # (test code = MO#) 1.0 K/mm3 0.2-1.5 N EOSINOPHIL # (test code = EO#) 0.1 K/mm3 0.0-0.4 N BASOPHIL # (test code = BA#) 0.0 K/mm3 0.0-0.2 N MANUAL DIFF REQUIRED (test code = NO DIFF/SCN CRITERIA MDIFF) Notes Date/Time Note Provider Source 2022-06-10 18:02:00-00:00 [facility] ([facility]) Wound Care Progress Note REPORT#:[id number] REPORT STATUS: Signed DATE:06/10/22 TIME:1801 PATIENT: FRAN SANTAMARIA UNIT #: [id number] ROOM/BED: [place] [address] : [birth year] AGE: 71 SEX: M ATTEND: Jacky Gutierrez MD ADM AUTHOR: Yakov Kate MD * ALL edits or amendments must be made on the el ectronic/computer document * Subjective Chief complaint: Wound Care HPI: no acute events Unable to obtain: medical condition Objective General VS: Last Documented: Result Date Time Pulse Ox 100 06/10 1710 B/P 144/68 06/10 1710 B/P Mean 93.2 06/10 1710 O2 Delivery Room air 06/10 1710 Temp 98.2 06/10 1710 Pulse 73 06/10 1710 Resp 14 06/10 1710 PATIENT WEIGHT: Weight (lb): Weight (oz): Weight (kg): 71.400 Medications: Active Meds + DC'd Last 24 Hrs Divalproex Sodium (DEPAKOTE) 500 MG BID PO Lisinopril (ZESTRIL) 2.5 MG DAILY PO Metoprolol Succinate (TOPROL XL) 25 MG DAILY PO Apixaban (ELIQUIS) 5 MG Q12HR PO Atorvastatin Calcium (LIPITOR) 40 MG BEDTIME PO Aspirin (ECOTRIN) 81 MG DAILY PO Citalopram Hydrobromide (CeleXA) 10 MG DAILY PO Finasteride (PROSCAR) 5 MG DAILY PO Ketoconazole (Nizoral 2% Shampoo 120 ML) 1 APPLI C DAILY TOPICAL Oxybutynin Chloride (DITROPAN) 5 MG BID PO Tamsulosin HCl (FLOMAX) 0.8 MG DAILY PO Insulin Human Lispro (HUMALOG) S/SCALE LOW AC HS SUBQ Dextrose/Water (Dextrose 50% W SYRINGE) 50 ML DIR PRN IV (CKD) Docusate Sodium (COLACE) 100 MG Q12H PRN PRN PO Trazodone HCl (DESYREL) 150 MG BEDTIME PRN PO Dietitian Nutrition assessment The data set between the solid lines has been im ported from the dietitian's assessment. BMI Calculated: 20.2 Nutrition related diagnosis: Nutrition diagnosis details: Nutrition problem: Increased nutrient needs Nutrition etiology: Wound healing Nutrition signs and symptoms: Increased protein needs for, wound healing Nutrition prescription: Recommend continue cardi ac easy to chew diet with Glucerna supplements. Dietitian name: Andrés Street, DIET Assessment completed: 06/08/22 Physical Exam General appearance: chronically ill appearing Respiratory: no distress Abdomen: non-tender Extremities: no edema Wound Assessment Wound Assessment 1: Type/cause: pressure Wound location: heel Tissue layers: limited to skin breakdown Site condition: no drainage, no ecchymosis, no erythema Stage of pressure ulcer: stage I Wound Assessment 2: Type/cause: chronic Wound location: foot Site condition: no drainage, no ecchymosis, no erythema Wound Assessment 3: Type/cause: pressure Wound location: buttock Site condition: no drainage, no ecchymosis, no erythema Stage of pressure ulcer: stage II Diagnosis, Assessment Plan Problem List/A P: 1. Decubitus ulcer of buttock, stage 2 improving. offload cleanse with soap and water and pad down dry apply moisturizer cream (Remedy purple bottle) leave open to air carry this out once every RN shift 2. Pressure injury of heel, stage 1 improving alread; keep in heel boots 3. Abrasions of multiple sites leave open to air 4. Chronic foot ulcer leave open to air 5. Altered mental status Consultants: cardiology Electronically Signed by Yakov Kate MD on 05/22 at 1803 RPT #: [id number] END OF REPORT 2022-06-10 10:31:00-00:00 [facility] ([facility] Hospitalist Progress Note REPORT#:[id number] REPORT STATUS: Signed DATE:06/10/22 TIME:1031 PATIENT: FRAN SANTAMARIA UNIT #: [id number] ROOM/BED: [place] [address] : [birth year] AGE: 71 SEX: M ATTEND: Jacky Gutierrez MD ADM AUTHOR: Anneliese Eden MD * ALL edits or amendments must be made on the [employer]/computer document * Subjective Chief complaint: No acute events HPI: 71-year-old male with PMHx o f massive CVA x5 (per patient), hypertension, atrial fibrillation, diabetes mellitus, coronary artery disease, status post stent placement presented to the ED for altered mental status. Of note, it was unclear when the patient was last seen at his [facility] baseline mental status. The staff at his nursing facility notice d that he had repetitive speech today. In the ED, his NIH score was reported as 0. Head CT and CTA no acute findings or significant stenosis. He was not a candidate for tPA or endovascular therapy due to the time of onset of his symptoms and because the patient is on Eliquis. EKG showed A-fib with HR 77. UA negative for UTI . Found elevated troponin. Vitals stable. Upon my evalu ation patient is alert, orientated x4, appearing his mentation back to at his baseline. He is a good historian. Denies dizziness, chest pain, shortness of suzanne ath, abdominal pain, or nausea vomiting. Patient is incontinence. Patient just wants to be changed. Noted involuntary jerking movement of the left upper extremity. Ashleigh gloria states he usually has low BP. BP nl during ED stay. He is admitted for further ev aluation and management. Objective Physical Exam General appearance: awake Head/Eyes: atraumatic, normal conjunctiva/sclera , normal eyelids/periorb., normocephalic, PERRL ENT: moist mucosal membranes Neck: full range of motion, normal thyroid, supp le/no meningismus, no JVD, no masses or swelling Cardiovascular: normal capillary refill, normal heart sounds, regular rate rhythm Respiratory: aerating well, clear to auscultatio n, symmetric expansion, no distress Abdomen: non-tender, normal bowel sounds, soft, no distention Genitourinary: urine, no flank pain Extremities: normal capillary refill, no cyanosi s, no edema Musculoskeletal: normal inspection Neuro/PRECISION LENS GENERATOR: right hemiparesis, alert, oriented X 3, normal speech, no sensory deficits Skin: normal color, normal temperature Lymphatics: no lymphadenopathy Psychiatry: anxious Diagnosis, Assessment Plan Consultants: cardiology Free Text DxA P Notes Free text DxA P notes: 71 yo male with PMHX of multiple CVAx5, CAD, HTN , DM2 admitted for 1. Acute metabolic encephalopathy-Baseline demen tia-resolved and back to baseline, MRI brain shows no acute process - Lef t frontoparietal convexity meningioma again noted -Concern is that of seizure with postict al confusion. Neurology added depakote appearing back to his baseline no obvious convincing metabolic or neurologic e tiology head CT/CTA no significant acute abnormality 2. Elevated troponin-type II NC trended troponin x3 Monitor on the telemetry pt is on Eliquis for A-fib 3. Hyponatremia - resolved unknown etiology Resolved with IVF, BS control, repeat bmp home med HCTZ 5. Atrial fibrillation - rate controlled continue Eliquis not on BB HR controlled 6. DM2 ACHS SSI VTE ppx: on Eliquis Full code Work-up negative, symptoms resolved, back to bas yair Discussed with Daughter and she's [facility] - Consulted CM Awaiting placement Possible DC once placement is arranged Patient is medically stable Tried contacting sister regarding disposition Will DC home with home health Likely discharge to personal-fdc Saturday - amily agreeable Electronically Signed by Anneliese Eden MD on 1 08/11/21 at 1032 RPT #: [id number] END OF REPORT 2022-06-10 10:30:00-00:00 [facility] ([facility]) Hospitalist Progress Note REPORT#:[id number] REPORT STATUS: Signed DATE:06/10/22 TIME:1030 PATIENT: FRAN SANTAMARIA UNIT #: [id number] ROOM/BED: [facility]18-1 : 50 AGE: 71 SEX: M ATTEND: Jacky Gutierrez MD ADM AUTHOR: Anneliese Eden MD * ALL edits or amendments must be made on the [employer]/computer document * Subjective Chief complaint: No acute events HPI: 71-year-old male with PMHx o f massive CVA x5 (per patient), hypertension, atrial fibrillation, diabetes mellitus, coronary artery disease, status post stent placement presented to the ED for altered mental status. Of note, it was unclear when the patient was last seen at his [facility] baseline mental status. The staff at his nursing facility notice d that he had repetitive speech today. In the ED, his NIH score was reported as 0. Head CT and CTA no acute findings or significant stenosis. He was not a candidate for tPA or endovascular therapy due to the time of onset of his symptoms and because the patient is on Eliquis. EKG showed A-fib with HR 77. UA negative for UTI . Found elevated troponin. Vitals stable. Upon my evalu ation patient is alert, orientated x4, appearing his mentation back to at his baseline. He is a good historian. Denies dizziness, chest pain, shortness of suzanne ath, abdominal pain, or nausea vomiting. Patient is incontinence. Patient just wants to be changed. Noted involuntary jerking movement of the left upper extremity. Ashleigh gloria states he usually has low BP. BP nl during ED stay. He is admitted for further ev aluation and management. Objective Physical Exam General appearance: awake Head/Eyes: atraumatic, normal conjunctiva/sclera , normal eyelids/periorb., normocephalic, PERRL ENT: moist mucosal membranes Neck: full range of motion, normal thyroid, supp le/no meningismus, no JVD, no masses or swelling Cardiovascular: normal capillary refill, normal heart sounds, regular rate rhythm Respiratory: aerating well, clear to auscultatio n, symmetric expansion, no distress Abdomen: non-tender, normal bowel sounds, soft, no distention Genitourinary: urine, no flank pain Extremities: normal capillary refill, no cyanosi s, no edema Musculoskeletal: normal inspection Neuro/PRECISION LENS GENERATOR: right hemiparesis, alert, oriented X 3, normal speech, no sensory deficits Skin: normal color, normal temperature Lymphatics: no lymphadenopathy Psychiatry: anxious Diagnosis, Assessment Plan Consultants: cardiology Free Text DxA P Notes Free text DxA P notes: 71 yo male with PMHX of multiple CVAx5, CAD, HTN , DM2 admitted for 1. Acute metabolic encephalopathy-Baseline demen tia-resolved and back to baseline, MRI brain shows no acute process - Lef t frontoparietal convexity meningioma again noted -Concern is that of seizure with postict al confusion. Neurology added depakote appearing back to his baseline no obvious convincing metabolic or neurologic e tiology head CT/CTA no significant acute abnormality 2. Elevated troponin-type II NC trended troponin x3 Monitor on the telemetry pt is on Eliquis for A-fib 3. Hyponatremia - resolved unknown etiology Resolved with IVF, BS control, repeat bmp home med HCTZ 5. Atrial fibrillation - rate controlled continue Eliquis not on BB HR controlled 6. DM2 ACHS SSI VTE ppx: on Eliquis Full code Work-up negative, symptoms resolved, back to bas yair Discussed with Daughter and she's [facility] - Consulted CM Awaiting placement Possible DC once placement is arranged Patient is medically stable Tried contacting sister regarding disposition Will DC home with home health Family appealed discharge -[facility] will [facility] at 1031 RPT #: [id number] END OF REPORT 2022-06-09 18:15:00-00:00 [facility] ([facility]) Wound Care Progress Note REPORT#:[id number] REPORT STATUS: Signed DATE:06/09/22 TIME:1814 PATIENT: FRAN SANTAMARIA UNIT #: [id number] ROOM/BED: [place] [address] : 50 AGE: 71 SEX: M ATTEND: Jacky Gutierrez MD ADM AUTHOR: Yakov Kate MD * ALL edits or amendments must be made on the [employer]/computer document * Subjective Chief complaint: Wound Care HPI: no acute events Unable to obtain: medical condition Objective General VS: Last Documented: Result Date Time Pulse Ox 97 06/09 1558 B/P 122/67 06/09 1558 B/P Mean 85.6 06/09 1558 Temp 98.2 06/09 1558 Pulse 70 06/09 1558 Resp 18 06/09 1107 O2 Delivery Room air 06/09 0535 PATIENT WEIGHT: Weight (lb): Weight (oz): Weight (kg): 71.400 Medications: Active Meds + DC'd Last 24 Hrs Divalproex Sodium (DEPAKOTE) 500 MG BID PO Lisinopril (ZESTRIL) 2.5 MG DAILY PO Metoprolol Succinate (TOPROL XL) 25 MG DAILY PO Apixaban (ELIQUIS) 5 MG Q12HR PO Atorvastatin Calcium (LIPITOR) 40 MG BEDTIME PO Aspirin (ECOTRIN) 81 MG DAILY PO Citalopram Hydrobromide (CeleXA) 10 MG DAILY PO Finasteride (PROSCAR) 5 MG DAILY PO Ketoconazole (Nizoral 2% Shampoo 120 ML) 1 APPLI C DAILY TOPICAL Oxybutynin Chloride (DITROPAN) 5 MG BID PO Tamsulosin HCl (FLOMAX) 0.8 MG DAILY PO Insulin Human Lispro (HUMALOG) S/SCALE LOW AC HS SUBQ Dextrose/Water (Dextrose 50% W SYRINGE) 50 ML DIR PRN IV (CKD) Docusate Sodium (COLACE) 100 MG Q12H PRN PRN PO Trazodone HCl (DESYREL) 150 MG BEDTIME PRN PO Dietitian Nutrition assessment The data set between the solid lines has been im ported from the dietitian's assessment. BMI Calculated: 20.2 Nutrition related diagnosis: Nutrition diagnosis details: Nutrition problem: Increased nutrient needs Nutrition etiology: Wound healing Nutrition signs and symptoms: Increased protein needs for, wound healing Nutrition prescription: Recommend continue cardi ac easy to chew diet with Glucerna supplements. Dietitian name: Andrés Street, DIET Assessment completed: 06/08/22 Physical Exam General appearance: chronically ill appearing Respiratory: no distress Abdomen: non-tender Extremities: no edema Wound Assessment Wound Assessment 1: Type/cause: pressure Wound location: heel Tissue layers: limited to skin breakdown Site condition: no drainage, no ecchymosis, no erythema Stage of pressure ulcer: stage I Wound Assessment 2: Type/cause: chronic Wound location: foot Site condition: no drainage, no ecchymosis, no erythema Wound Assessment 3: Type/cause: pressure Wound location: buttock Site condition: no drainage, no ecchymosis, no erythema Stage of pressure ulcer: stage II Diagnosis, Assessment Plan Problem List/A P: 1. Decubitus ulcer of buttock, stage 2 improving. offload cleanse with soap and water and pad down dry apply moisturizer cream (Remedy purple bottle) leave open to air carry this out once every RN shift 2. Pressure injury of heel, stage 1 improving alread; keep in heel boots 3. Abrasions of multiple sites leave open to air 4. Chronic foot ulcer leave open to air 5. Altered mental status Consultants: cardiology Electronically Signed by Yakov Kate MD on 04/21 at 1817 RPT #: [id number] END OF REPORT 2022-06-08 21:09:00-00:00 [facility] ([facility]) Wound Care Progress Note REPORT#:[id number] REPORT STATUS: Signed DATE:06/08/22 TIME:2108 PATIENT: FRAN SANTAMARIA UNIT #: [id number] ROOM/BED: [place] [address] : 50 AGE: 71 SEX: M ATTEND: Jacky Gutierrez MD ADM AUTHOR: Yakov Kate MD * ALL edits or amendments must be made on the [employer]/computer document * Subjective Chief complaint: Wound Care HPI: no acute events Unable to obtain: combative Objective General VS: Last Documented: Result Date Time Pulse Ox 99 06/08 1930 B/P 107/57 06/08 1930 B/P Mean 73.9 06/08 1930 O2 Delivery Room air 06/08 1930 Temp 98.1 06/08 1930 Pulse 49 06/08 1930 Resp 14 06/08 1930 PATIENT WEIGHT: Weight (lb): Weight (oz): Weight (kg): 71.400 Medications: Active Meds + DC'd Last 24 Hrs Divalproex Sodium (DEPAKOTE) 500 MG BID PO Lisinopril (ZESTRIL) 2.5 MG DAILY PO Metoprolol Succinate (TOPROL XL) 25 MG DAILY PO Apixaban (ELIQUIS) 5 MG Q12HR PO Atorvastatin Calcium (LIPITOR) 40 MG BEDTIME PO Aspirin (ECOTRIN) 81 MG DAILY PO Citalopram Hydrobromide (CeleXA) 10 MG DAILY PO Finasteride (PROSCAR) 5 MG DAILY PO Ketoconazole (Nizoral 2% Shampoo 120 ML) 1 APPLI C DAILY TOPICAL Oxybutynin Chloride (DITROPAN) 5 MG BID PO Tamsulosin HCl (FLOMAX) 0.8 MG DAILY PO Insulin Human Lispro (HUMALOG) S/SCALE LOW AC HS SUBQ Dextrose/Water (Dextrose 50% W SYRINGE) 50 ML DIR PRN IV (CKD) Docusate Sodium (COLACE) 100 MG Q12H PRN PRN PO Trazodone HCl (DESYREL) 150 MG BEDTIME PRN PO Dietitian Nutrition assessment The data set between the solid lines has been im ported from the dietitian's assessment. BMI Calculated: 20.2 Nutrition related diagnosis: Nutrition diagnosis details: Nutrition problem: Increased nutrient needs Nutrition etiology: Wound healing Nutrition signs and symptoms: Increased protein needs for, wound healing Nutrition prescription: Recommend continue cardi ac easy to chew diet with Glucerna supplements. Dietitian name: Andrés Street, DIET Assessment completed: 06/08/22 Physical Exam General appearance: agitated Respiratory: no distress Abdomen: non-tender Extremities: no edema Wound Assessment Wound Assessment 1: Type/cause: pressure Wound location: heel Tissue layers: limited to skin breakdown Site condition: no drainage, no ecchymosis, no erythema Stage of pressure ulcer: stage I Wound Assessment 2: Type/cause: chronic Wound location: foot Site condition: no drainage, no ecchymosis, no erythema Wound Assessment 3: Type/cause: pressure Wound location: buttock Site condition: no drainage, no ecchymosis, no erythema Stage of pressure ulcer: stage II Diagnosis, Assessment Plan Problem List/A P: 1. Decubitus ulcer of buttock, stage 2 improving. offload cleanse with soap and water and pad down dry apply moisturizer cream (Remedy purple bottle) leave open to air carry this out once every RN shift 2. Pressure injury of heel, stage 1 improving alread; keep in heel boots 3. Abrasions of multiple sites leave open to air 4. Chronic foot ulcer leave open to air 5. Altered mental status Consultants: cardiology Electronically Signed by Yakov Kate MD on 03/22 at 2110 RPT #: [id number] END OF REPORT 2022-06-08 11:04:00-00:00 [facility] ([facility]) Hospitalist Progress Note REPORT#:[id number] REPORT STATUS: Signed DATE:06/08/22 TIME:1104 PATIENT: FRAN SANTAMARIA UNIT #: [id number] ROOM/BED: [place] [address] : 50 AGE: 71 SEX: M ATTEND: Jacky Gutierrez MD ADM AUTHOR: Anneliese Eden MD * ALL edits or amendments must be made on the [employer]/computer document * Subjective Chief complaint: No acute events HPI: 71-year-old male with PMHx o f massive CVA x5 (per patient), hypertension, atrial fibrillation, diabetes mellitus, coronary artery disease, status post stent placement presented to the ED for altered mental status. Of note, it was unclear when the patient was last seen at his [facility] baseline mental status. The staff at his nursing facility notice d that he had repetitive speech today. In the ED, his NIH score was reported as 0. Head CT and CTA no acute findings or significant stenosis. He was not a candidate for tPA or endovascular therapy due to the time of onset of his symptoms and because the patient is on Eliquis. EKG showed A-fib with HR 77. UA negative for UTI . Found elevated troponin. Vitals stable. Upon my evalu ation patient is alert, orientated x4, appearing his mentation back to at his baseline. He is a good historian. Denies dizziness, chest pain, shortness of suzanne ath, abdominal pain, or nausea vomiting. Patient is incontinence. Patient just wants to be changed. Noted involuntary jerking movement of the left upper extremity. Ashleigh gloria states he usually has low BP. BP nl during ED stay. He is admitted for further ev aluation and management. Objective Physical Exam General appearance: sleeping comfortably Head/Eyes: atraumatic, normal conjunctiva/sclera , normal eyelids/periorb., normocephalic, PERRL ENT: moist mucosal membranes Neck: full range of motion, normal thyroid, supp le/no meningismus, no JVD, no masses or swelling Cardiovascular: normal capillary refill, normal heart sounds, regular rate rhythm Respiratory: aerating well, clear to auscultatio n, symmetric expansion, no distress Abdomen: non-tender, normal bowel sounds, soft, no distention Genitourinary: urine, no flank pain Extremities: normal capillary refill, no cyanosi s, no edema Musculoskeletal: normal inspection Neuro/PRECISION LENS GENERATOR: right hemiparesis, alert, oriented X 3, normal speech, no sensory deficits Skin: normal color, normal temperature Lymphatics: no lymphadenopathy Psychiatry: anxious Diagnosis, Assessment Plan Consultants: cardiology Free Text DxA P Notes Free text DxA P notes: 71 yo male with PMHX of multiple CVAx5, CAD, HTN , DM2 admitted for 1. Acute metabolic encephalopathy-Baseline demen tia-resolved and back to baseline, MRI brain shows no acute process - Lef t frontoparietal convexity meningioma again noted -Concern is that of seizure with postict al confusion. Neurology added depakote appearing back to his baseline no obvious convincing metabolic or neurologic e tiology head CT/CTA no significant acute abnormality 2. Elevated troponin-type II NC trended troponin x3 Monitor on the telemetry pt is on Eliquis for A-fib 3. Hyponatremia - resolved unknown etiology Resolved with IVF, BS control, repeat bmp home med HCTZ 5. Atrial fibrillation - rate controlled continue Eliquis not on BB HR controlled 6. DM2 ACHS SSI VTE ppx: on Eliquis Full code Work-up negative, symptoms resolved, back to bas yair Discussed with Daughter and she's [facility] - Consulted CM Awaiting placement Possible DC once placement is arranged Patient is medically stable Tried contacting sister regarding disposition Will DC home with home health Family appealed discharge -we will discussed wit h case management Electronically Signed by Anneliese Eden MD on 1 08/09/21 at 1106 RPT #: [id number] END OF REPORT 2022-06-08 09:12:00-00:00 [facility] ([facility]) Cardiology Progress Note REPORT#:[id number] REPORT STATUS: Signed DATE:06/08/22 TIME:911 PATIENT: FRAN SANTAMARIA UNIT #: [id number] RO[address]/BED: [address] : 50 AGE: 71 SEX: M ATTEND: Jacky Gutierrez MD ADM AUTHOR: Sammie Johnson APRN * ALL edits or amendments must be made on the [employer]/computer document * Subjective Free Text Subj Notes Free Text Subj Notes: Cardiology progress note Date of service: 06/08/2022 Chief complaint/reason for consult: Elevated red sanjana Patient seen and examined, laquita valdes reviewed, questions/concerns addressed with RN. Current medication and vitals reviewed and liste d above HPI and interval Hx: NAD. No acute events report ed overnight. Remains in rate controlled A. fib. BP stable Admission HPI: 1 YO male chronically ill-looking male, appear confused, hx provided by [facility]. The patient has PMH of CVA, AF ib on Eliquis, CAD with prior PCI who presented to ED with abnormal speech. Initial Head imaging negative for acute IC finding. Troponin came back elevated an d cardiology consultation is requested. Troponin: 160.5->223.5. EKG showed at rial fibrillation with controlled rate, no acute ST/T wave changes. The patient denies chest pain or SOB. MPOA/sister Ayla Ace phone [phone]. Subjective: Denies any chest pain or shortness o f breath Objective: Vital Signs: Date Time Temp Pulse Resp B/P B/P Pulse O2 O2 Flow FiO2 Mean Ox Delivery Rate 06/08 0747 97.3 73 14 145/72 96.4 94 Room air 12/09 0325 98.1 63 17 152/75 100.7 95 06/07 2218 97.9 69 15 121/66 84.4 100 Current Medications Sig/Manuel Start time Last Medication Dose Route Stop Time Status Admin Divalproex Sodium 500 MG BID 06/01 2100 AC 12/0 9 PO 07/01 2058 08 Lisinopril 2.5 MG DAILY 06/01 900 AC 06/08 PO 07/01 0859 0827 Metoprolol Succinate 25 MG DAILY 06/01 900 AC 06/08 PO 07/01 0859 0828 Apixaban 5 MG Q12HR 05/31 2100 AC 06/08 PO 06/14 2059 08 Atorvastatin Calcium 40 MG BEDTIME 05/30 2100 A C 06/07 PO 06/29 Aspirin 81 MG DAILY 05/30 113 AC 06/08 PO 06/29 113 0827 Citalopram 10 MG DAILY 05/30 900 AC 06/08 Hydrobromide PO 06/29 0859 0828 Finasteride 5 MG DAILY 05/30 900 AC 06/08 PO 06/29 0459 0827 Ketoconazole 1 APPLIC DAILY 05/30 900 AC 06/08 TOPICAL 06/13 0859 0828 Oxybutynin Chloride 5 MG BID 05/30 900 AC PO 06/29 0859 0828 Tamsulosin HCl 0.8 MG DAILY 05/30 09 AC 9 PO 06/29 0859 0828 Insulin Human Lispro See Dose AC HS 05/30 0730 AC 06/07 Insts (1) SUBQ 06/29 0729 1728 Dextrose/Water 50 ML ASDIR PRN 05/30 0515 CKD IV 06/29 0514 Docusate Sodium 100 MG Q12H PRN PRN 05/30 0500 AC PO 06/29 0459 Trazodone HCl 150 MG BEDTIME PRN 05/30 0500 AC 06/08 PO 06/29 0459 0116 Dose Instructions: (1)Insulin Human Lispro: S/SCALE LOW Vital signs as above Physical examination: GEN: chronically ill appeari ng, frail, alert, awake, no acute distress, pleasant HEENT: NC/AT, EOMI CARD: iRRR, normal S1/S2,+ murmur LUNGS: CTA w/o added sounds, GBAE. ABD: Soft, nondistended, nontender. Intact BS EXT: No obvious deformities. No edema. Periphera l pulses intact NEURO: AOx2-3, decreased ROM SKIN: Warm and dry, no rashes/lesions. PSYCH: Appropriate mood and affect Laboratory Tests: 06/08 06/07 06/07 06/07 0744 2051 1636 1221 Chemistry POC Glucose (70 - 110 mg/dL) 86 105 164 H 142 H Echocardiogram Result: Conclusions Summary: 1. Left ventricle: The cavity size is dilated. W all thickness is normal. Systolic function is mildly reduced. The estima ventura ejection fraction is 45-49%. 2. Right ventricle: The RV pressure during systo le by Doppler is 34 mm Hg. Prepared and electronically signed by Sraah Chavez MD 05/30/2022 17:35 PATIENT NAME: FRAN SANTAMARIA [id number] >>>>>>>>>>>>>>>>>>>>>>>>>&gt ;>>>>>> END OF PAGE <<<<<<<<<<<<<<<<<<<<<<<<<<<<<<<< Assessment, Impression and medical decision barbi black. Plan/recommendation: EKG Interpretation: atrial fibrillation Diagnosis, Assessment Plan Free Text DxA P Notes Free Text DxA P Notes: 71 YO male chronically ill-looking male, appear confused, hx provided by [facility]. The patient has PMH of CVA, AFib on Eliquis, CAD with prior PCI who presented to ED with abnormal speech. Initial Head imaging negative for acute IC finding. Troponin came back elevated and cardiology consultation is requested. Troponin: 160.5->223.5. EKG showed atr ial fibrillation with controlled rate, no acute ST/ T wave changes. The patient denies chest pain or SOB. 1. Chronc atrial fibrillation - rate control continue metoprolol DC heparin gtt, resume Eliquis 5 mg BID echocardiogram LVEF 45-49%, no signficant valvul ar disease 2. Positive troponin - likely Type II NC Known CAD with prior stent leaning toward Type II NC in the setting of poss ible TIA or ?UTI Troponin: 160.5->223.5->100.1->61.6 DC heparin gtt, continue ASA 81 mg daily , atorvastatin 40 mg daily, metoprolol 25 mg BID echocardiogram LVEF 45-49% telemetry outpatient stresst test 3. Speech disturbance ? TIA, ?encephalopathy, ? Dementia neurology consulted 4. UA positive for bacteriuria manage per primary team 5. Hx of CVA 6. Hypertension continue low dose ACEI and BB 7. LV Systolic dysfunction LVEF 45-49% continue BB change to metoprolol succinate 25 mg daily, add lisinopril 2.5 mg daily Stop amlodipine MPOA/sister Ayla Ace phone [phone]. No further cardiac workup. Outpatient follow-up with Dr. Chavez in 2 weeks. at 1232 06/08/2022 NAD. No acute events reported beatris chin. Remains in rate controlled A. fib. BP stable. -Continue metoprolol for rate control, lisinopril for additional BP control -Continue Eliquis/apixaban for embolic event pre vention -Continue with above recomme ndations: Cardiology clinic follow-up for outpatient stress test -Awaiting placement Thank you for your consultat ion and allowing us to take the care of your patient please do not hesitate to contact us with any qu estions or concerns. Sammie Johnson [facility] PROFESSIONAL Dr. Sarah Chavez MD-Attending Motor Equipment Commanding Officer [facility] Cardiology at 1055 Electronically Signed by Sarah Chavez MD on at 0614 RPT #: [id number] END OF REPORT 2022-06-07 22:04:00-00:00 [facility] ([facility]) Wound Care Progress Note REPORT#:[id number] REPORT STATUS: Signed DATE:06/07/22 TIME:2203 PATIENT: FRAN SANTAMARIA UNIT #: [id number] ROOM/BED: [place] [address] : 50 AGE: 71 SEX: M ATTEND: Jacky Gutierrez MD ADM AUTHOR: Yakov Kate MD * ALL edits or amendments must be made on the el [employer]/computer document * Subjective Chief complaint: Wound Care HPI: no acute events Objective General VS: Last Documented: Result Date Time Pulse Ox 97 06/07 1910 B/P 121/49 06/07 1910 B/P Mean 73.0 06/07 1910 Temp 98.1 06/07 1910 Pulse 71 06/07 1910 Resp 16 06/07 1910 O2 Delivery Room air 06/07 1639 PATIENT WEIGHT: Weight (lb): Weight (oz): Weight (kg): 71.400 Medications: Active Meds + DC'd Last 24 Hrs Divalproex Sodium (DEPAKOTE) 500 MG BID PO Lisinopril (ZESTRIL) 2.5 MG DAILY PO Metoprolol Succinate (TOPROL XL) 25 MG DAILY PO Apixaban (ELIQUIS) 5 MG Q12HR PO Atorvastatin Calcium (LIPITOR) 40 MG BEDTIME PO Aspirin (ECOTRIN) 81 MG DAILY PO Citalopram Hydrobromide (CeleXA) 10 MG DAILY PO Finasteride (PROSCAR) 5 MG DAILY PO Ketoconazole (Nizoral 2% Shampoo 120 ML) 1 APPLI C DAILY TOPICAL Oxybutynin Chloride (DITROPAN) 5 MG BID PO Tamsulosin HCl (FLOMAX) 0.8 MG DAILY PO Insulin Human Lispro (HUMALOG) S/SCALE LOW AC HS SUBQ Dextrose/Water (Dextrose 50% W SYRINGE) 50 ML DIR PRN IV (CKD) Docusate Sodium (COLACE) 100 MG Q12H PRN PRN PO Trazodone HCl (DESYREL) 150 MG BEDTIME PRN PO Dietitian Nutrition assessment The data set between the solid lines has been im ported from the dietitian's assessment. BMI Calculated: 20.2 Nutrition related diagnosis: Nutrition diagnosis details: Nutrition problem: Increased nutrient needs Nutrition etiology: Wound healing Nutrition signs and symptoms: Increased protein needs for, wound healing Nutrition prescription: Recommend continue curre nt diet. Recommend adding Glucerna supplements to meal plan 1x/day. Encour age continued good intake as tolerated. Dietitian name: Neetu Cast, DIET Assessment completed: 05/31/22 Physical Exam General appearance: chronically ill appearing Respiratory: no distress Abdomen: non-tender Extremities: no edema Wound Assessment Wound Assessment 1: Type/cause: pressure Wound location: heel Tissue layers: limited to skin breakdown Site condition: no drainage, no ecchymosis, no erythema Stage of pressure ulcer: stage I Wound Assessment 2: Type/cause: chronic Wound location: foot Site condition: no drainage, no ecchymosis, no erythema Wound Assessment 3: Type/cause: pressure Wound location: buttock Site condition: no drainage, no ecchymosis, no erythema Stage of pressure ulcer: stage II Diagnosis, Assessment Plan Problem List/A P: 1. Decubitus ulcer of buttock, stage 2 improving. offload cleanse with soap and water and pad down dry apply moisturizer cream (Remedy purple bottle) leave open to air carry this out once every RN shift 2. Pressure injury of heel, stage 1 improving alread; keep in heel boots 3. Abrasions of multiple sites leave open to air 4. Chronic foot ulcer leave open to air 5. Altered mental status Consultants: cardiology Electronically Signed by Yakov Kate MD on 02/19 at 2205 RPT #: [id number] END OF REPORT 2022-06-07 16:35:00-00:00 [facility] ([facility]) Neurology Progress Note REPORT#:[id number] REPORT STATUS: Signed DATE:06/07/22 TIME:1635 PATIENT: FRAN SANTAMARIA UNIT #: [id number] [address]: [address] : 50 AGE: 71 SEX: M ATTEND: Jacky Gutierrez MD ADM AUTHOR: Ramsey Marrero MD * ALL edits or amendments must be made on the el [employer]/computer document * Objective General VS: Last Documented: Result Date Time Pulse Ox 99 06/07 1228 B/P 100/57 06/07 1228 B/P Mean 0.0 06/07 1228 O2 Delivery Room air 06/07 1228 Temp 36.4 06/07 1228 Pulse 77 06/07 1228 Resp 14 06/07 1228 PATIENT WEIGHT: Weight (lb): Weight (oz): Weight (kg): 71.400 Medications Current Home Medications CITALOPRAM (CeleXA) 10 MG PO DAILY HYDROCHLOROTHIAZIDE (HCTZ) 12.5 MG PO DAILY SAXAGLIPTIN (ONGLYZA) 5 MG PO DAILY ASCORBIC ACID (VITAMIN C) 500 MG PO DAILY ATORVASTATIN (LIPITOR) 40 MG PO BEDTIME FINASTERIDE (PROSCAR) TAMSULOSIN ER (FLOMAX) 0.8 MG PO DAILY APIXABAN (ELIQUIS) 5 MG PO BID metFORMIN (GLUCOPHAGE) 850 MG PO TID traZODone (DESYREL) 150 MG PO BEDTIME OXYBUTYNIN (DITROPAN) 5 MG PO BID KETOCONAZOLE (NIZORAL 2%) 1 APPLIC TOPICAL MOWEF R KETOCONAZOLE (NIZORAL 2%) 1 APPLIC TOPICAL DAILY traZODone (DESYREL) 150 MG PO BEDTIME PRN INSOMN IA OMEGA-3 FATTY ACIDS (FISH OIL) 1,000 MG PO DAILY DOCUSATE SODIUM (COLACE) 100 MG PO Q12H PRN PRN CONSTIPATION FLUTICASONE PROPIONATE (FLONASE 50 MCG/ACT NASAL ) 1 SPRAY NASAL BID FAMOTIDINE (PEPCID) 20 MG PO BID METOPROLOL SUCC XL (TOPROL XL) 25 MG PO DAILY Active Meds + DC'd Last 24 Hrs Divalproex Sodium (DEPAKOTE) 500 MG BID PO Lisinopril (ZESTRIL) 2.5 MG DAILY PO Metoprolol Succinate (TOPROL XL) 25 MG DAILY PO Apixaban (ELIQUIS) 5 MG Q12HR PO Atorvastatin Calcium (LIPITOR) 40 MG BEDTIME PO Aspirin (ECOTRIN) 81 MG DAILY PO Citalopram Hydrobromide (CeleXA) 10 MG DAILY PO Finasteride (PROSCAR) 5 MG DAILY PO Ketoconazole (Nizoral 2% Shampoo 120 ML) 1 APPLI C DAILY TOPICAL Oxybutynin Chloride (DITROPAN) 5 MG BID PO Tamsulosin HCl (FLOMAX) 0.8 MG DAILY PO Insulin Human Lispro (HUMALOG) S/SCALE LOW AC HS SUBQ Dextrose/Water (Dextrose 50% W SYRINGE) 50 ML DIR PRN IV (CKD) Docusate Sodium (COLACE) 100 MG Q12H PRN PRN PO Trazodone HCl (DESYREL) 150 MG BEDTIME PRN PO Mental Status Orientation: Yes: to time, to place, to person. No: to situat ion. Reflexes Plantar reflexes: Up: Right. Down: Left. Results Findings/Data: Laboratory Tests 06/07 06/07 06/06 06/06 1221 0726 1909 1652 Chemistry POC Glucose (70 - 110 mg/dL) 142 H 131 H 147 H 181 H Results: labs reviewed, vital signs reviewed, cu rrent med profile rev'd Diagnosis, Assessment Plan Free Text A P: 71 years old male who is being evaluated for alt ered mental status. CT of the brain - No evidence of acute pathology . Senescent changes. Left frontal encephalomalacia unchanged. CTA head and neck - Scattered atherosclerotic pl aque with mild less than 50% narrowing at the left carotid bifurcation. No other area o f significant stenosis. No intracranial large vessel occlusion. Hemoglobin A1c 6.0, LDL 43 Diagnoses: 1. Acute encephalopathy - etiology under investi gation on baseline dementia 2. History of chronic infarcts 3. Atrial fibrillation 4. Diabetes mellitus 5. Dementia 6. CAD 7. History of tobacco use 8. Generalized rash Plan: Telemetry. Reviewed CT of the brain. Reviewed CTA head and neck. MRI of the brain - pending. Echo - pending. Continue Aspirin, statin and Eliquis. PT/OT and speech evaluation. Supportive care. Neurology to follow. Thanks for the consult. 05/31 stable; no evidence for new stroke 06/01 review of MRI shows moderate to large area of encephalomalacia in Left superior fromtal area + what appears to be a meningioma j ust posterior to this. Concern is that of seizure with postictal co nfusion. Will add depakote and follow as outpatient in view of difficulty of obtaining EEG on the weekend. 06/07 eeg has much artifact but bifrontal slowing is noted Electronically Signed by Ramsey Marrero MD o n 06/07/22 at 1639 RPT #: [id number] END OF REPORT 2022-06-07 15:07:00-00:00 [id number] [facility] [address] [place] [address] PATIENT NAME: FRAN SANTAMARIA ADMIT DATE: ACCOUNT NO: [id number] ROOM NO: [id number] AGE: 71 REPORT TYPE: ELECTROENCEPHALOGRAM SEX: M ADMITTING PHYSICIAN: Cheikh Gutierrez MD ATTENDING PHYSICIAN: Cheikh Gutierrez MD STUDY DATE: 06/05/2022 FINDINGS: The record shows: 1. No definite discernible posterior basic rhyth m. 2. There are fair amounts of diffuse medium volt age 4-7 cycles per second activity and a good amount of medium to high vol tage 1-3 cycles per second activity seen over the bifrontal areas. 3. Fair amounts of diffuse low voltage 14-22 cyc les per second activity. A fair amount of electrical ar tifact is present looking for minor sharp waves very difficult. IMPRESSION: Abnormal EEG with absent posterior b asic rhythm as well as excessive diffuse slowing and bifrontal slowing. There are no definite seizure discharges. COMMENT: This record suggest moderate diffuse ce rebral dysfunction. The bifrontal slowing may be related to bifr ontal lesions, hydrocephalus or a deep lesion and lower structures. Dictated By: Ramsey Marrero MD Date Dictated: 06/07/2022 15:07:30 Date Transcribed: 06/07/2022 21:39:34 [facility] Receipt ID: [id number] Authenticated by Ramsey Marrero MD On 023 09:19:45 AM at 0919 PATIENT NAME: FRAN SANTAMARIA [id number] 2022-06-07 11:22:00-00:00 [facility] ([facility]) Hospitalist Progress Note REPORT#:[id number] REPORT STATUS: Signed DATE:06/07/22 TIME:1121 PATIENT: FRAN SANTAMARIA UNIT #: [id number] [address] : [address] AGE: 71 SEX: M ATTEND: Jacky Gutierrez MD ADM AUTHOR: Anneliese Eden MD * ALL edits or amendments must be made on the [employer]/computer document * Subjective Chief complaint: No acute events HPI: 71-year-old male with PMHx o f massive CVA x5 (per patient), hypertension, atrial fibrillation, diabetes mellitus, coronary artery disease, status post stent placement presented to the ED for altered mental status. Of note, it was unclear when the patient was last seen at his [facility] baseline mental status. The staff at his nursing facility notice d that he had repetitive speech today. In the ED, his NIH score was reported as 0. Head CT and CTA no acute findings or significant stenosis. He was not a candidate for tPA or endovascular therapy due to the time of onset of his symptoms and because the patient is on Eliquis. EKG showed A-fib with HR 77. UA negative for UTI . Found elevated troponin. Vitals stable. Upon my evalu ation patient is alert, orientated x4, appearing his mentation back to at his baseline. He is a good historian. Denies dizziness, chest pain, shortness of suzanne ath, abdominal pain, or nausea vomiting. Patient is incontinence. Patient just wants to be changed. Noted involuntary jerking movement of the left upper extremity. Ashleigh gloria states he usually has low BP. BP nl during ED stay. He is admitted for further ev aluation and management. Objective Physical Exam General appearance: awake Head/Eyes: atraumatic, normal conjunctiva/sclera , normal eyelids/periorb., normocephalic, PERRL ENT: moist mucosal membranes Neck: full range of motion, normal thyroid, supp le/no meningismus, no JVD, no masses or swelling Cardiovascular: normal capillary refill, normal heart sounds, regular rate rhythm Respiratory: aerating well, clear to auscultatio n, symmetric expansion, no distress Abdomen: non-tender, normal bowel sounds, soft, no distention Genitourinary: urine, no flank pain Extremities: normal capillary refill, no cyanosi s, no edema Musculoskeletal: normal inspection Neuro/PRECISION LENS GENERATOR: right hemiparesis, alert, oriented X 3, normal speech, no sensory deficits Skin: normal color, normal temperature Lymphatics: no lymphadenopathy Psychiatry: anxious Diagnosis, Assessment Plan Consultants: cardiology Free Text DxA P Notes Free text DxA P notes: 71 yo male with PMHX of multiple CVAx5, CAD, HTN , DM2 admitted for 1. Acute metabolic encephalopathy-Baseline demen tia-resolved and back to baseline, MRI brain shows no acute process - Lef t frontoparietal convexity meningioma again noted -Concern is that of seizure with postict al confusion. Neurology added depakote appearing back to his baseline no obvious convincing metabolic or neurologic e tiology head CT/CTA no significant acute abnormality 2. Elevated troponin-type II NC trended troponin x3 Monitor on the telemetry pt is on Eliquis for A-fib 3. Hyponatremia - resolved unknown etiology Resolved with IVF, BS control, repeat bmp home med HCTZ 5. Atrial fibrillation - rate controlled continue Eliquis not on BB HR controlled 6. DM2 ACHS SSI VTE ppx: on Eliquis Full code Work-up negative, symptoms resolved, back to bas yair Discussed with Daughter and she's [facility] - Consulted CM Awaiting placement Possible DC once placement is arranged Patient is medically stable Tried contacting sister regarding disposition Will DC home with home health Family appealed discharge -we will discussed [facility] case management at 1124 RPT #: [id number] END OF REPORT 2022-06-07 09:30:00-00:00 [facility] ([facility]) Infectious Dis. Progress Note REPORT#:[id number] REPORT STATUS: Signed DATE:06/07/22 TIME:929 PATIENT: FRAN SANTAMARIA UNIT #: [id number] ROOM/BED: [address] : 50 AGE: 71 SEX: M ATTEND: Jacky Gutierrez MD ADM AUTHOR: Evelyn Jiménez MD * ALL edits or amendments must be made on the el [employer]/computer document * Subjective Chief complaint: R/o scabies HPI: 71-year-old male with h/o massive CVA x5 (per ashleigh gloria), hypertension, atrial fibrillation, diabetes mellitus, coronar y artery disease, who presented to the ED for worsening confusion associated with repet itive speech. Of note, it was unclear when the patient was last seen at his normal baseline mental status. In the ED, Head CT and CTA showed no acute findings. ID consulted to r/o scabies. no new changes Review of Systems Constitutional: Denies: fever. Objective General VS/I O: Vital Signs Date Temp Pulse Resp B/P B/P Mean Pulse Ox FiO2 06/06-06/07 36.4-36.8 57-68 14-15 105-133/52-70 71.8-89.4 97-100 Last Documented: Result Date Time Pulse Ox 100 06/07 727 B/P 123/69 06/07 727 B/P Mean 87.3 06/07 727 O2 Delivery Room air 06/07 727 Temp 36.8 06/07 727 Pulse 64 06/07 727 Resp 14 06/07 727 Vital Signs: Date Time Temp Pulse Resp B/P B/P Pulse O2 O2 F low FiO2 Mean Ox Delivery Rate 06/07 727 36.8 64 14 123/69 87.3 100 Room air 06/07 0420 36.4 62 14 113/63 79.4 99 Room air 06/06 2351 36.5 63 14 128/70 89.4 99 Room air 06/06 1911 36.6 68 15 133/52 78.6 98 Room air 06/06 1659 36.7 61 14 129/56 80.7 97 Room air 06/06 1055 36.4 57 14 105/55 71.8 98 Room air 24 hour I O ending at 0700: 06/07 0700 06/06 1900 Intake Total Output Total Balance Number 5 Incontinent Voids PATIENT WEIGHT: Weight (lb): Weight (oz): Weight (kg): 71.400 Physical Exam General appearance: awake Head/Eyes: atraumatic, normocephalic ENT: moist mucosal membranes Neck: no masses or swelling Cardiovascular: regular rate rhythm Respiratory: no distress Abdomen: soft, no distention Genitourinary: no flank pain Extremities: no clubbing, no cyanosis Musculoskeletal: no joint swelling Neuro/PRECISION LENS GENERATOR: altered mental status Skin: Multiple signs of excoriations on the legs and arms Psychiatry: abnl judgment/insight Diagnosis, Assessment Plan Free Text A P: Laboratory Tests 06/03/22 0450: [Embedded Image Not Available] Imaging: MRI brain reviewed 05/30 CXR reviewed 05/29 Assessment: 1. Rash. UE/LE 2. Encephalopathy. 3. a fib 4. htn 5. h/o cva 6. no uti Plan: 1. the clinical findings are less likely to be c /w scabies, possibly from bed bugs. 2. Recommend infection control evaluation. 3. Monitor CBC and temperature. 4. wound care 5. pt is off AB Consultants: cardiology Electronically Signed by Evelyn Jiménez MD on 02/19 at 1317 RPT #: [id number] END OF REPORT 2022-06-06 22:46:00-00:00 [facility] ([facility]) Wound Care Progress Note REPORT#:[id number] REPORT STATUS: Signed DATE:06/06/22 TIME:2245 PATIENT: FRAN SANTAMARIA UNIT #: [id number] ROOM/BED: [place] [address] : 50 AGE: 71 SEX: M ATTEND: Jacky Gutierrez MD ADM AUTHOR: Yakov Kate MD * ALL edits or amendments must be made on the [employer]/computer document * Subjective Chief complaint: Wound Care HPI: no acute events Unable to obtain: medical condition Objective General VS: Last Documented: Result Date Time Pulse Ox 98 06/06 1911 B/P 133/52 06/06 1911 B/P Mean 78.6 06/06 1911 O2 Delivery Room air 06/06 1911 Temp 97.9 06/06 1911 Pulse 68 06/06 1911 Resp 15 06/06 1911 PATIENT WEIGHT: Weight (lb): Weight (oz): Weight (kg): 71.400 Medications: Active Meds + DC'd Last 24 Hrs Divalproex Sodium (DEPAKOTE) 500 MG BID PO Lisinopril (ZESTRIL) 2.5 MG DAILY PO Metoprolol Succinate (TOPROL XL) 25 MG DAILY PO Apixaban (ELIQUIS) 5 MG Q12HR PO Atorvastatin Calcium (LIPITOR) 40 MG BEDTIME PO Aspirin (ECOTRIN) 81 MG DAILY PO Citalopram Hydrobromide (CeleXA) 10 MG DAILY PO Finasteride (PROSCAR) 5 MG DAILY PO Ketoconazole (Nizoral 2% Shampoo 120 ML) 1 APPLI C DAILY TOPICAL Oxybutynin Chloride (DITROPAN) 5 MG BID PO Tamsulosin HCl (FLOMAX) 0.8 MG DAILY PO Insulin Human Lispro (HUMALOG) S/SCALE LOW AC HS SUBQ Dextrose/Water (Dextrose 50% W SYRINGE) 50 ML DIR PRN IV (CKD) Docusate Sodium (COLACE) 100 MG Q12H PRN PRN PO Trazodone HCl (DESYREL) 150 MG BEDTIME PRN PO Dietitian Nutrition assessment The data set between the solid lines has been im ported from the dietitian's assessment. BMI Calculated: 20.2 Nutrition related diagnosis: Nutrition diagnosis details: Nutrition problem: Increased nutrient needs Nutrition etiology: Wound healing Nutrition signs and symptoms: Increased protein needs for, wound healing Nutrition prescription: Recommend continue curre nt diet. Recommend adding Glucerna supplements to meal plan 1x/day. Encour age continued good intake as tolerated. Dietitian name: Neetu Cast, DIET Assessment completed: 05/31/22 Physical Exam General appearance: chronically ill appearing Respiratory: no distress Abdomen: non-tender Extremities: no edema Wound Assessment Wound Assessment 1: Type/cause: pressure Wound location: heel Tissue layers: limited to skin breakdown Site condition: no drainage, no ecchymosis, no erythema Stage of pressure ulcer: stage I Wound Assessment 2: Type/cause: chronic Wound location: foot Site condition: no drainage, no ecchymosis, no erythema Wound Assessment 3: Type/cause: pressure Wound location: buttock Site condition: no drainage, no ecchymosis, no erythema Stage of pressure ulcer: stage II Diagnosis, Assessment Plan Problem List/A P: 1. Decubitus ulcer of buttock, stage 2 cleanse with soap and water and pad down dry apply moisturizer cream (Remedy purple bottle) leave open to air carry this out once every RN shift 2. Pressure injury of heel, stage 1 improving alread; keep in heel boots 3. Abrasions of multiple sites leave open to air 4. Chronic foot ulcer leave open to air 5. Altered mental status Consultants: cardiology Electronically Signed by Yakov Kate MD on 01/19 at 2247 RPT #: [id number] END OF REPORT 2022-06-06 14:53:00-00:00 [facility] ([facility]) Cardiology Progress Note REPORT#:[id number] REPORT STATUS: Signed DATE:06/06/22 TIME:1453 PATIENT: FRAN SANTAMARIA UNIT #: [id number] ROOM/BED: [place] [address] : 50 AGE: 71 SEX: M ATTEND: Jacky Gutierrez MD ADM AUTHOR: Sammie Johnson APRN * ALL edits or amendments must be made on the el [employer]ronic/computer document * Subjective Free Text Subj Notes Free Text Subj Notes: Cardiology progress note Date of service: 06/06/2022 Chief complaint/reason for consult: Elevated tro ponin Patient seen and examined, laquita valdes reviewed, questions/concerns addressed with RN. Current medication and vitals reviewed and liste d above HPI and interval Hx: NAD. No acute events report ed overnight. Remains in rate controlled A. fib. BP stable Admission HPI: 1 YO male chronically ill-looking male, appear confused, hx provided by [facility]. The patient has PMH of CVA, AF ib on Eliquis, CAD with prior PCI who presented to ED with abnormal speech. Initial Head imaging negative for acute IC finding. Troponin came back elevated an d cardiology consultation is requested. Troponin: 160.5->223.5. EKG showed at rial fibrillation with controlled rate, no acute ST/T wave changes. The patient denies chest pain or SOB. CHARLIEA/sister Ayla Ace phone [phone]. Subjective: Denies any chest pain or shortness o f breath Objective: Vital Signs Date Temp Pulse Resp B/P B/P Mean Pulse Ox FiO2 06/05-06/06 97.5-98.2 57-72 14-16 105-162/55-86 71.8-111.4 94-99 Current Medications Sig/Manuel Start time Last Medication Dose Route Stop Time Status Admin Divalproex Sodium 500 MG BID 06/01 2100 AC 7 PO 07/01 2058 0848 Lisinopril 2.5 MG DAILY 06/01 900 AC 06/06 PO 07/01 0859 0849 Metoprolol Succinate 25 MG DAILY 06/01 900 AC 06/06 PO 07/01 0859 0850 Apixaban 5 MG Q12HR 05/31 2100 AC 06/06 PO 06/14 2059 0850 Atorvastatin Calcium 40 MG BEDTIME 05/30 2100 A C 06/05 PO 06/29 Aspirin 81 MG DAILY 05/30 1133 AC 06/06 PO 06/29 113 0850 Citalopram 10 MG DAILY 05/30 900 AC 06/06 Hydrobromide PO 06/29 0859 0849 Finasteride 5 MG DAILY 05/30 900 AC 06/06 PO 06/29 0459 0849 Ketoconazole 1 APPLIC DAILY 05/30 900 AC 06/06 TOPICAL 06/13 0859 0850 Oxybutynin Chloride 5 MG BID 05/30 900 AC 7 PO 06/29 0859 0849 Tamsulosin HCl 0.8 MG DAILY 05/30 900 AC 06/06 PO 06/29 0859 0848 Insulin Human Lispro See Dose AC HS 05/30 730 AC 06/05 Insts (1) SUBQ 06/29 07 1222 Dextrose/Water 50 ML ASDIR PRN 05/30 0515 CKD IV 06/29 0514 Docusate Sodium 100 MG Q12H PRN PRN 05/30 0500 AC PO 06/29 459 Trazodone HCl 150 MG BEDTIME PRN 05/30 0500 AC 06/01 PO 06/29 459 0157 Dose Instructions: (1)Insulin Human Lispro: S/SCALE LOW Vital signs as above Physical examination: GEN: chronically ill appeari ng, frail, alert, awake, no acute distress, pleasant HEENT: NC/AT, EOMI CARD: iRRR, normal S1/S2,+ murmur LUNGS: CTA w/o added sounds, GBAE. ABD: Soft, nondistended, nontender. Intact BS EXT: No obvious deformities. No edema. Periphera l pulses intact NEURO: AOx2-3, decreased ROM SKIN: Warm and dry, no rashes/lesions. PSYCH: Appropriate mood and affect Laboratory Tests: 06/06 06/06 06/05 1054 0629 1915 Chemistry POC Glucose (70 - 110 mg/dL) 160 H 129 H 157 H Echocardiogram Result: Conclusions Summary: 1. Left ventricle: The cavity size is dilated. W all thickness is normal. Systolic function is mildly reduced. The estima ventura ejection fraction is 45-49%. 2. Right ventricle: The RV pressure during systo le by Doppler is 34 mm Hg. Prepared and electronically signed by Sarah Chavez MD 05/30/2022 17:35 PATIENT NAME: FRAN SANTAMARIA [id number] >>>>>>>>>>>>>>>>>>>>>>>>>&gt ;>>>>>> END OF PAGE <<<<<<<<<<<<<<<<<<<<<<<<<<<<<<<< Assessment, Impression and medical decision barbi wayne. Plan/recommendation: EKG Interpretation: atrial fibrillation Diagnosis, Assessment Plan Free Text DxA P Notes Free Text DxA P Notes: 71 YO male chronically ill-looking male, appear confused, hx provided by [facility]. The patient has PMH of CVA, AFib on Eliquis, CAD with prior PCI who presented to ED with abnormal speech. Initial Head imaging negative for acute IC finding. Troponin came back elevated and cardiology consultation is requested. Troponin: 160.5->223.5. EKG showed atr ial fibrillation with controlled rate, no acute ST/ T wave changes. The patient denies chest pain or SOB. 1. Chronc atrial fibrillation - rate control continue metoprolol DC heparin gtt, resume Eliquis 5 mg BID echocardiogram LVEF 45-49%, no signficant valvul ar disease 2. Positive troponin - likely Type II NC Known CAD with prior stent leaning toward Type II NC in the setting of poss ible TIA or ?UTI Troponin: 160.5->223.5->100.1->61.6 DC heparin gtt, continue ASA 81 mg daily , atorvastatin 40 mg daily, metoprolol 25 mg BID echocardiogram LVEF 45-49% telemetry outpatient stresst test 3. Speech disturbance ? TIA, ?encephalopathy, ? Dementia neurology consulted 4. UA positive for bacteriuria manage per primary team 5. Hx of CVA 6. Hypertension continue low dose ACEI and BB 7. LV Systolic dysfunction LVEF 45-49% continue BB change to metoprolol succinate 25 mg daily, add lisinopril 2.5 mg daily Stop amlodipine CHARLIEA/sister Ayla Ace phone [phone]. No further cardiac workup. Outpatient follow-up with Dr. Chavez in 2 weeks. at 1232 06/06/2022 NAD. No acute events reported overnigh t. Remains in rate controlled A. fib. BP stable. -Continue metoprolol for rate control, lisinopril for additional BP control -Continue Eliquis/apixaban for embolic event pre vention -Continue with above recomme ndations: Cardiology clinic follow-up for outpatient stress test -Awaiting placement Thank you for your consultat ion and allowing us to take the care of your patient please do not hesitate to contact us with any qu estions or concerns. Sammie Johnson [facility] PROFESSIONAL Dr. Sarah Chavez MD-Attending Motor Equipment Commanding Officer [facility] Cardiology at 1455 Electronically Signed by Sarah Chavez MD on at 2227 RPT #: [id number] END OF REPORT 2022-06-06 12:01:00-00:00 [facility] ([facility]) Hospitalist Progress Note REPORT#:[id number] REPORT STATUS: Signed DATE:06/06/22 TIME:1201 PATIENT: FRAN SANTAMARIA UNIT #: [id number] ROOM/BED: [place] [address] : 50 AGE: 71 SEX: M ATTEND: Jacky Gutierrez MD ADM AUTHOR: Cheikh Gutierrez MD * ALL edits or amendments must be made on the [employer]/computer document * Subjective Chief complaint: No acute events HPI: 71-year-old male with PMHx o f massive CVA x5 (per patient), hypertension, atrial fibrillation, diabetes mellitus, coronary artery disease, status post stent placement presented to the ED for altered mental status. Of note, it was unclear when the patient was last seen at his [facility] baseline mental status. The staff at his nursing facility notice d that he had repetitive speech today. In the ED, his NIH score was reported as 0. Head CT and CTA no acute findings or significant stenosis. He was not a candidate for tPA or endovascular therapy due to the time of onset of his symptoms and because the patient is on Eliquis. EKG showed A-fib with HR 77. UA negative for UTI . Found elevated troponin. Vitals stable. Upon my evalu ation patient is alert, orientated x4, appearing his mentation back to at his baseline. He is a good historian. Denies dizziness, chest pain, shortness of suzanne ath, abdominal pain, or nausea vomiting. Patient is incontinence. Patient just wants to be changed. Noted involuntary jerking movement of the left upper extremity. Ashleigh gloria states he usually has low BP. BP nl during ED stay. He is admitted for further ev aluation and management. Objective General VS/I O: Vital Signs: Date Time Temp Pulse Resp B/P B/P Pulse O2 O2 F low FiO2 Mean Ox Delivery Rate 06/06 1055 97.5 57 14 105/55 71.8 98 Room air 06/06 0631 97.9 71 14 162/86 111.4 97 Room air 06/06 0458 97.9 64 15 135/62 86.2 96 Room air 06/05 2349 98.2 60 16 133/71 91.5 94 Room air 06/05 1903 98.2 72 15 128/69 88.8 99 Room air 06/05 1541 97.9 63 16 117/60 78.9 97 06/05 1343 97.5 61 17 101/51 67.6 98 24 hour I O ending at 0700: 06/06 0700 06/05 1900 Intake Total Output Total 200 Balance -200 Number 1 Bowel Movements Number 1 Incontinent Voids Output, Urine 200 PATIENT WEIGHT: Weight (lb): Weight (oz): Weight (kg): 71.400 Medications: Active Meds + DC'd Last 24 Hrs Divalproex Sodium (DEPAKOTE) 500 MG BID PO Lisinopril (ZESTRIL) 2.5 MG DAILY PO Metoprolol Succinate (TOPROL XL) 25 MG DAILY PO Apixaban (ELIQUIS) 5 MG Q12HR PO Atorvastatin Calcium (LIPITOR) 40 MG BEDTIME PO Aspirin (ECOTRIN) 81 MG DAILY PO Citalopram Hydrobromide (CeleXA) 10 MG DAILY PO Finasteride (PROSCAR) 5 MG DAILY PO Ketoconazole (Nizoral 2% Shampoo 120 ML) 1 APPLI C DAILY TOPICAL Oxybutynin Chloride (DITROPAN) 5 MG BID PO Tamsulosin HCl (FLOMAX) 0.8 MG DAILY PO Insulin Human Lispro (HUMALOG) S/SCALE LOW AC HS SUBQ Dextrose/Water (Dextrose 50% W SYRINGE) 50 ML DIR PRN IV (CKD) Docusate Sodium (COLACE) 100 MG Q12H PRN PRN PO Trazodone HCl (DESYREL) 150 MG BEDTIME PRN PO Physical Exam General appearance: confused, alert Head/Eyes: atraumatic, normal conjunctiva/sclera , normal eyelids/periorb., normocephalic, PERRL ENT: moist mucosal membranes Neck: full range of motion, normal thyroid, supp le/no meningismus, no JVD, no masses or swelling Cardiovascular: normal capillary refill, normal heart sounds, regular rate rhythm Respiratory: aerating well, clear to auscultatio n, symmetric expansion, no distress Abdomen: non-tender, normal bowel sounds, soft, no distention Genitourinary: urine, no flank pain Extremities: normal capillary refill, no cyanosi s, no edema Musculoskeletal: normal inspection Neuro/PRECISION LENS GENERATOR: right hemiparesis, alert, oriented X 3, normal speech, no sensory deficits Skin: normal color, normal temperature Lymphatics: no lymphadenopathy Psychiatry: anxious Results Findings/Data: Laboratory Tests 06/06 06/06 06/05 1054 0629 1915 Chemistry POC Glucose (70 - 110 mg/dL) 160 H 129 H 157 H Diagnosis, Assessment Plan Consultants: cardiology Free Text DxA P Notes Free text DxA P notes: 71 yo male with PMHX of multiple CVAx5, CAD, HTN , DM2 admitted for 1. Acute metabolic encephalopathy-Baseline demen tia-resolved and back to baseline, MRI brain shows no acute process - Lef t frontoparietal convexity meningioma again noted -Concern is that of seizure with postict al confusion. Neurology added depakote appearing back to his baseline no obvious convincing metabolic or neurologic e tiology head CT/CTA no significant acute abnormality 2. Elevated troponin-type II NC trended troponin x3 Monitor on the telemetry pt is on Eliquis for A-fib 3. Hyponatremia - resolved unknown etiology Resolved with IVF, BS control, repeat bmp home med HCTZ 5. Atrial fibrillation - rate controlled continue Eliquis not on BB HR controlled 6. DM2 ACHS SSI VTE ppx: on Eliquis Full code Work-up negative, symptoms resolved, back to bas yair Discussed with Daughter and she's [facility] - Consulted CM Awaiting placement Possible DC once placement is arranged Patient is medically stable Tried contacting sister regarding disposition Will DC home with home health Family appealed discharge Electronically Signed by Cheikh Gutierrez MD on at 1208 RPT #: [id number] END OF REPORT 2022-06-06 10:03:00-00:00 [facility] ([facility]) Infectious Dis. Progress Note REPORT#:[id number] REPORT STATUS: Signed DATE:06/06/22 TIME:1003 PATIENT: FRAN SANTAMARIA UNIT #: [id number] ROOM/BED: [address]1 : 50 AGE: 71 SEX: M ATTEND: Jacky Gutierrez MD ADM AUTHOR: Evelyn Jiménez MD * ALL edits or amendments must be made on the el [employer]/computer document * Subjective Chief complaint: R/o scabies HPI: 71-year-old male with h/o massive CVA x5 (per ashleigh gloria), hypertension, atrial fibrillation, diabetes mellitus, coronar y artery disease, who presented to the ED for worsening confusion associated with repet itive speech. Of note, it was unclear when the patient was last seen at his normal baseline mental status. In the ED, Head CT and CTA showed no acute findings. ID consulted to r/o scabies. no new changes Review of Systems Constitutional: Denies: fever. Objective General VS/I O: Vital Signs Date Temp Pulse Resp B/P B/P Mean Pulse Ox FiO2 06/05-06/06 36.4-36.8 60-72 14-17 101-162/51-86 67.6-111.4 94-99 Last Documented: Result Date Time Pulse Ox 97 06/06 631 B/P 162/86 06/06 631 B/P Mean 111.4 06/06 0631 O2 Delivery Room air 06/06 631 Temp 36.6 06/06 0631 Pulse 71 06/06 0631 Resp 14 06/06 631 Vital Signs: Date Time Temp Pulse Resp B/P B/P Pulse O2 O2 F low FiO2 Mean Ox Delivery Rate 06/06 631 36.6 71 14 162/86 111.4 97 Room air 06/06 0458 36.6 64 15 135/62 86.2 96 Room air 06/05 2349 36.8 60 16 133/71 91.5 94 Room air 06/05 1903 36.8 72 15 128/69 88.8 99 Room air 06/05 1541 36.6 63 16 117/60 78.9 97 06/05 1343 36.4 61 17 101/51 67.6 98 24 hour I O ending at 0700: 06/06 0700 06/05 1900 Intake Total Output Total 200 Balance -200 Number 1 Bowel Movements Number 1 Incontinent Voids Output, Urine 200 PATIENT WEIGHT: Weight (lb): Weight (oz): Weight (kg): 71.400 Physical Exam General appearance: awake Head/Eyes: atraumatic, normocephalic ENT: moist mucosal membranes Neck: no masses or swelling Cardiovascular: regular rate rhythm Respiratory: symmetric expansion, no distress Abdomen: soft, no distention Genitourinary: no flank pain Extremities: no clubbing, no cyanosis Musculoskeletal: no joint swelling Neuro/PRECISION LENS GENERATOR: altered mental status Skin: Multiple signs of exciriations on the legs and arms Psychiatry: abnl judgment/insight Diagnosis, Assessment Plan Free Text A P: Laboratory Tests 06/03/22 0450: [Embedded Image Not Available] Imaging: MRI brain reviewed 05/30 CXR reviewed 05/29 Assessment: 1. Rash. UE/LE 2. Encephalopathy. Plan: 1. the clinical findings are less likely to be c /w scabies, possibly from bed bugs. 2. Recommend infection control evaluation. 3. Monitor CBC and temperature. 4. wound care 5. pt remains off AB Consultants: cardiology Electronically Signed by Evelyn Jiménez MD on 01/19 at 1326 RPT #: [id number] END OF REPORT 2022-06-05 19:39:00-00:00 [facility] ([facility]) Wound Care Progress Note REPORT#:[id number] REPORT STATUS: Signed DATE:06/05/22 TIME:1938 PATIENT: FRAN SANTAMARIA UNIT #: [id number] ROOM/BED: S218-1 : 50 AGE: 71 SEX: M ATTEND: Jacky Gutierrez MD ADM AUTHOR: Yakov Kate MD * ALL edits or amendments must be made on the el [email or web address]/computer document * Subjective Chief complaint: Wound Care HPI: no acute events Patient reports: Yes: able to communicate, feeling better. No: dr stephen from wound, odor. Objective General VS: Last Documented: Result Date Time Pulse Ox 99 12/06 1903 B/P 128/69 06/05 1903 B/P Mean 88.8 06/05 1903 O2 Delivery Room air 06/05 1903 Temp 98.2 06/05 1903 Pulse 72 06/05 1903 Resp 15 06/05 1903 PATIENT WEIGHT: Weight (lb): Weight (oz): Weight (kg): 71.400 Medications: Active Meds + DC'd Last 24 Hrs Divalproex Sodium (DEPAKOTE) 500 MG BID PO Lisinopril (ZESTRIL) 2.5 MG DAILY PO Metoprolol Succinate (TOPROL XL) 25 MG DAILY PO Apixaban (ELIQUIS) 5 MG Q12HR PO Atorvastatin Calcium (LIPITOR) 40 MG BEDTIME PO Aspirin (ECOTRIN) 81 MG DAILY PO Citalopram Hydrobromide (CeleXA) 10 MG DAILY PO Finasteride (PROSCAR) 5 MG DAILY PO Ketoconazole (Nizoral 2% Shampoo 120 ML) 1 APPLI C DAILY TOPICAL Oxybutynin Chloride (DITROPAN) 5 MG BID PO Tamsulosin HCl (FLOMAX) 0.8 MG DAILY PO Insulin Human Lispro (HUMALOG) S/SCALE LOW AC HS SUBQ Dextrose/Water (Dextrose 50% W SYRINGE) 50 ML DIR PRN IV (CKD) Docusate Sodium (COLACE) 100 MG Q12H PRN PRN PO Trazodone HCl (DESYREL) 150 MG BEDTIME PRN PO Dietitian Nutrition assessment The data set between the solid lines has been im ported from the dietitian's assessment. BMI Calculated: 20.2 Nutrition related diagnosis: Nutrition diagnosis details: Nutrition problem: Increased nutrient needs Nutrition etiology: Wound healing Nutrition signs and symptoms: Increased protein needs for, wound healing Nutrition prescription: Recommend continue curre nt diet. Recommend adding Glucerna supplements to meal plan 1x/day. Encour age continued good intake as tolerated. Dietitian name: Neetu Cast, DIET Assessment completed: 05/31/22 Physical Exam General appearance: chronically ill appearing Respiratory: no distress Abdomen: non-tender Extremities: no edema Wound Assessment Wound Assessment 1: Type/cause: pressure Wound location: heel Tissue layers: limited to skin breakdown Site condition: no drainage, no ecchymosis, no erythema Stage of pressure ulcer: stage I Wound Assessment 2: Type/cause: chronic Wound location: foot Site condition: no drainage, no ecchymosis, no erythema Wound Assessment 3: Type/cause: pressure Wound location: buttock Site condition: no drainage, no ecchymosis, no erythema Stage of pressure ulcer: stage II Diagnosis, Assessment Plan Problem List/A P: 1. Decubitus ulcer of buttock, stage 2 cleanse with soap and water and pad down dry apply moisturizer cream (Remedy purple bottle) leave open to air carry this out once every RN shift 2. Pressure injury of heel, stage 1 improving alread; keep in heel boots 3. Abrasions of multiple sites leave open to air 4. Chronic foot ulcer leave open to air 5. Altered mental status Consultants: cardiology Electronically Signed by Yakov Kate MD on 12/20 at 1945 RPT #: [id number] END OF REPORT 2022-06-05 14:40:00-00:00 [facility] ([facility]) Cardiology Progress Note REPORT#:[id number] REPORT STATUS: Signed DATE:06/05/22 TIME:1440 PATIENT: FRAN SANTAMARIA UNIT #: [id number] ROOM/BED: [place] [id number] : 50 AGE: 71 SEX: M ATTEND: Jacky Gutierrez MD ADM AUTHOR: Sammie Johnson APRN * ALL edits or amendments must be made on the el ectronic/computer document * Subjective Free Text Subj Notes Free Text Subj Notes: Cardiology progress note Date of service: 06/05/2022 Chief complaint/reason for consult: Elevated tro ponin Patient seen and examined, laquita valdes reviewed, questions/concerns addressed with RN. Current medication and vitals reviewed and liste d above HPI and interval Hx: NAD. No acute events report ed overnight. Remains in rate controlled A. fib. BP stable Admission HPI: 1 YO male chronically ill-looking male, appear confused, hx provided by [facility]. The patient has PMH of CVA, AF ib on Eliquis, CAD with prior PCI who presented to ED with abnormal speech. Initial Head imaging negative for acute IC finding. Troponin came back elevated an d cardiology consultation is requested. Troponin: 160.5->223.5. EKG showed at rial fibrillation with controlled rate, no acute ST/T wave changes. The patient denies chest pain or SOB. CHARLIEA/sister Ayla Ace phone [phone]. Subjective: Denies any chest pain or shortness o f breath Objective: Vital Signs: Date Time Temp Pulse Resp B/P B/P Pulse O2 O2 F low FiO2 Mean Ox Delivery Rate 06/05 1541 97.9 63 16 117/60 78.9 97 06/05 1343 97.5 61 17 101/51 67.6 98 06/05 0714 98.1 66 14 117/63 81.2 98 Room air Vital signs as above Physical examination: GEN: chronically ill appeari ng, frail, alert, awake, no acute distress, pleasant HEENT: NC/AT, EOMI CARD: iRRR, normal S1/S2,+ murmur LUNGS: CTA w/o added sounds, GBAE. ABD: Soft, nondistended, nontender. Intact BS EXT: No obvious deformities. No edema. Periphera l pulses intact NEURO: AOx2-3, decreased ROM SKIN: Warm and dry, no rashes/lesions. PSYCH: Appropriate mood and affect Laboratory Tests: 06/05 06/05 06/04 06/04 1202 0712 2200 2027 Chemistry POC Glucose (70 - 110 mg/dL) 178 H 122 H 154 H 146 H Echocardiogram Result: Conclusions Summary: 1. Left ventricle: The cavity size is dilated. W all thickness is normal. Systolic function is mildly reduced. The estima ventura ejection fraction is 45-49%. 2. Right ventricle: The RV pressure during systo le by Doppler is 34 mm Hg. Prepared and electronically signed by Sarah Chavez MD 05/30/2022 17:35 PATIENT NAME: FRAN SANTAMARIA [id number] >>>>>>>>>>>>>>>>>>>>>>>>>&gt ;>>>>>> END OF PAGE <<<<<<<<<<<<<<<<<<<<<<<<<<<<<<<< Assessment, Impression and medical decision barbi black. Plan/recommendation: EKG Interpretation: atrial fibrillation Diagnosis, Assessment Plan Free Text DxA P Notes Free Text DxA P Notes: 71 YO male chronically ill-looking male, appear confused, hx provided by [facility]. The patient has PMH of CVA, AFib on Eliquis, CAD with prior PCI who presented to ED with abnormal speech. Initial Head imaging negative for acute IC finding. Troponin came back elevated and cardiology consultation is requested. Troponin: 160.5->223.5. EKG showed atr ial fibrillation with controlled rate, no acute ST/ T wave changes. The patient denies chest pain or SOB. 1. Chronc atrial fibrillation - rate control continue metoprolol DC heparin gtt, resume Eliquis 5 mg BID echocardiogram LVEF 45-49%, no signficant valvul ar disease 2. Positive troponin - likely Type II NC Known CAD with prior stent leaning toward Type II NC in the setting of poss ible TIA or ?UTI Troponin: 160.5->223.5->100.1->61.6 DC heparin gtt, continue ASA 81 mg daily , atorvastatin 40 mg daily, metoprolol 25 mg BID echocardiogram LVEF 45-49% telemetry outpatient stresst test 3. Speech disturbance ? TIA, ?encephalopathy, ? Dementia neurology consulted 4. UA positive for bacteriuria manage per primary team 5. Hx of CVA 6. Hypertension continue low dose ACEI and BB 7. LV Systolic dysfunction LVEF 45-49% continue BB change to metoprolol succinate 25 mg daily, add lisinopril 2.5 mg daily Stop amlodipine [facility]/sister Ayla Ace phone [phone]. No further cardiac workup. Outpatient follow-up with Dr. Chavez in 2 weeks. at 1232 06/05/2022 NAD. No acute events reported beatris chin. Remains in rate controlled A. fib. BP stable. -Continue metoprolol for rate control, lisinopril for additional BP control -Continue Eliquis/apixaban for embolic event pre vention -Continue with above recomme ndations: Cardiology clinic follow-up for outpatient stress test -Will follow Thank you for your consultat ion and allowing us to take the care of your patient please do not hesitate to contact us with any qu estions or concerns. Sammie Johnson [facility] PROFESSIONAL Dr. Sarah Chavez MD-Attending Motor Equipment Commanding Officer [facility] Cardiology at 1711 Electronically Signed by Sarah Chavez MD on at 1000 RPT #: [id number] END OF REPORT 2022-06-05 11:27:00-00:00 [facility] ([facility]) Infectious Dis. Progress Note REPORT#:[id number] REPORT STATUS: Signed DATE:06/05/22 TIME:1127 PATIENT: FRAN SANTAMARIA UNIT #: [id number] ROOM/BED: S218-1 : 50 AGE: 71 SEX: M ATTEND: Jacky Gutierrez MD ADM AUTHOR: Evelyn Jiménez MD * ALL edits or amendments must be made on the el ectronic/computer document * Subjective Chief complaint: R/o scabies HPI: 71-year-old male with h/o massive CVA x5 (per ashleigh gloria), hypertension, atrial fibrillation, diabetes mellitus, coronar y artery disease, who presented to the ED for worsening confusion associated with repet itive speech. Of note, it was unclear when the patient was last seen at his normal baseline mental status. In the ED, Head CT and CTA showed no acute findings. ID consulted to r/o scabies. no new changes Review of Systems Constitutional: Denies: fever. Objective General VS/I O: Vital Signs Date Temp Pulse Resp B/P B/P Mean Pulse Ox FiO 2 06/04-06/05 36.5-37.5 41-66 14-16 102-141/57-73 74.2-92.8 98-99 Last Documented: Result Date Time Pulse Ox 98 06/05 714 B/P 117/63 06/05 714 B/P Mean 81.2 06/05 714 O2 Delivery Room air 06/05 714 Temp 36.7 06/05 714 Pulse 66 06/05 714 Resp 14 06/05 714 Vital Signs: Date Time Temp Pulse Resp B/P B/P Pulse O2 O2 F low FiO2 Mean Ox Delivery Rate 06/05 714 36.7 66 14 117/63 81.2 98 Room air 06/05 0454 36.5 41 16 110/57 74.3 99 06/05 0036 37.0 64 16 102/61 74.2 98 06/04 2028 37.5 63 16 133/73 92.8 98 06/04 1630 36.5 54 16 141/58 85.8 98 Room air PATIENT WEIGHT: Weight (lb): Weight (oz): Weight (kg): 71.400 Physical Exam General appearance: awake Head/Eyes: atraumatic, normocephalic ENT: moist mucosal membranes Neck: no masses or swelling Cardiovascular: regular rate rhythm Respiratory: symmetric expansion, no distress Abdomen: soft, no distention Genitourinary: no flank pain Extremities: no clubbing, no cyanosis Musculoskeletal: no joint swelling Neuro/PRECISION LENS GENERATOR: altered mental status Skin: Multiple signs of scratching in the legs a nd arms Psychiatry: abnl judgment/insight Diagnosis, Assessment Plan Free Text A P: Laboratory Tests 06/03/22 0450: [Embedded Image Not Available] Imaging: MRI brain reviewed 05/30 CXR reviewed 05/29 Assessment: 1. Rash. UE/LE 2. Encephalopathy. Plan: 1. the clinical findings are less likely to be c /w scabies, possible bedbugs. 2. Recommend infection control evaluation. 3. Monitor CBC and temperature. 4. wound care Consultants: cardiology Electronically Signed by Evelyn Jiménez MD on 12/20 at 1449 RPT #: [id number] END OF REPORT 2022-06-05 10:27:00-00:00 [facility] Hospitalist Progress Note REPORT#:[id number] REPORT STATUS: Signed DATE:06/05/22 TIME:1027 PATIENT: FRAN SANTAMARIA UNIT #: [id number] RO[address]BED: [address] : 50 AGE: 71 SEX: M ATTEND: Jacky Gutierrez MD ADM AUTHOR: Cheikh Gutierrez MD * ALL edits or amendments must be made on the [employer]/computer document * Subjective Chief complaint: No acute events HPI: 71-year-old male with PMHx o f massive CVA x5 (per patient), hypertension, atrial fibrillation, diabetes mellitus, coronary artery disease, status post stent placement presented to the ED for altered mental status. Of note, it was unclear when the patient was last seen at his [facility] baseline mental status. The staff at his nursing facility notice d that he had repetitive speech today. In the ED, his NIH score was reported as 0. Head CT and CTA no acute findings or significant stenosis. He was not a candidate for tPA or endovascular therapy due to the time of onset of his symptoms and because the patient is on Eliquis. EKG showed A-fib with HR 77. UA negative for UTI . Found elevated troponin. Vitals stable. Upon my evalu ation patient is alert, orientated x4, appearing his mentation back to at his baseline. He is a good historian. Denies dizziness, chest pain, shortness of suzanne ath, abdominal pain, or nausea vomiting. Patient is incontinence. Patient just wants to be changed. Noted involuntary jerking movement of the left upper extremity. Ashleigh gloria states he usually has low BP. BP nl during ED stay. He is admitted for further ev aluation and management. Objective General VS/I O: Vital Signs: Date Time Temp Pulse Resp B/P B/P Pulse O2 O2 F low FiO2 Mean Ox Delivery Rate 06/05 0714 98.1 66 14 117/63 81.2 98 Room air 06/05 0454 97.7 41 16 110/57 74.3 99 06/05 0036 98.6 64 16 102/61 74.2 98 06/048 99.5 63 16 133/73 92.8 98 06/04 1630 97.7 54 16 141/58 85.8 98 Room air 06/04 1057 97.5 52 16 116/64 81.3 99 Room air PATIENT WEIGHT: Weight (lb): Weight (oz): Weight (kg): 71.400 Medications: Active Meds + DC'd Last 24 Hrs Divalproex Sodium (DEPAKOTE) 500 MG BID PO Lisinopril (ZESTRIL) 2.5 MG DAILY PO Metoprolol Succinate (TOPROL XL) 25 MG DAILY PO Apixaban (ELIQUIS) 5 MG Q12HR PO Atorvastatin Calcium (LIPITOR) 40 MG BEDTIME PO Aspirin (ECOTRIN) 81 MG DAILY PO Citalopram Hydrobromide (CeleXA) 10 MG DAILY PO Finasteride (PROSCAR) 5 MG DAILY PO Ketoconazole (Nizoral 2% Shampoo 120 ML) 1 APPLI C DAILY TOPICAL Oxybutynin Chloride (DITROPAN) 5 MG BID PO Tamsulosin HCl (FLOMAX) 0.8 MG DAILY PO Insulin Human Lispro (HUMALOG) S/SCALE LOW AC HS SUBQ Dextrose/Water (Dextrose 50% W SYRINGE) 50 ML DIR PRN IV (CKD) Docusate Sodium (COLACE) 100 MG Q12H PRN PRN PO Trazodone HCl (DESYREL) 150 MG BEDTIME PRN PO Physical Exam General appearance: confused, alert, awake Head/Eyes: atraumatic, normal conjunctiva/sclera , normal eyelids/periorb., normocephalic, PERRL ENT: moist mucosal membranes Neck: full range of motion, normal thyroid, supp le/no meningismus, no JVD, no masses or swelling Cardiovascular: normal capillary refill, normal heart sounds, regular rate rhythm Respiratory: aerating well, clear to auscultatio n, symmetric expansion, no distress Abdomen: non-tender, normal bowel sounds, soft, no distention Genitourinary: urine, no flank pain Extremities: normal capillary refill, no cyanosi s, no edema Musculoskeletal: normal inspection Neuro/PRECISION LENS GENERATOR: right hemiparesis, alert, oriented X 3, normal speech, no sensory deficits Skin: normal color, normal temperature Lymphatics: no lymphadenopathy Psychiatry: anxious Results Findings/Data: Laboratory Tests 06/05 06/04 06/04 06/04 06/04 0712 2200 2028 1629 1053 Chemistry POC Glucose (70 - 110 mg/dL) 122 H 154 H 146 H 170 H 139 H Diagnosis, Assessment Plan Consultants: cardiology Free Text DxA P Notes Free text DxA P notes: 71 yo male with PMHX of multiple CVAx5, CAD, HTN , DM2 admitted for 1. Acute metabolic encephalopathy-Baseline demen tia-resolved and back to baseline, MRI brain shows no acute process - Lef t frontoparietal convexity meningioma again noted -Concern is that of seizure with postict al confusion. Neurology added depakote appearing back to his baseline no obvious convincing metabolic or neurologic e tiology head CT/CTA no significant acute abnormality 2. Elevated troponin-type II NC trended troponin x3 Monitor on the telemetry pt is on Eliquis for A-fib 3. Hyponatremia - resolved unknown etiology Resolved with IVF, BS control, repeat bmp home med HCTZ 5. Atrial fibrillation - rate controlled continue Eliquis not on BB HR controlled 6. DM2 ACHS SSI VTE ppx: on Eliquis Full code Work-up negative, symptoms resolved, back to bas yair Discussed with Daughter and she's [facility] - Consulted CM Awaiting placement Possible DC once placement is arranged Electronically Signed by Cheikh Gutierrez MD on at 1028 RPT #: [id number] END OF REPORT 2022-06-04 21:32:00-00:00 [facility] ([facility]) Wound Care Consultation Note REPORT#:[id number] REPORT STATUS: Signed DATE:06/04/22 TIME:2131 PATIENT: FRAN SANTAMARIA UNIT #: [id number] [address]: [address] : [address] AGE: 71 SEX: M ATTEND: Jacky Gutierrez MD ADM AUTHOR: Yakov Kate MD * ALL edits or amendments must be made on the el ectronic/computer document * History of Present Illness Requesting Clinician: Cheikh Gutierrez MD Reason for consult: sacral mgmt HPI: Mr. Fran Peterson is a 71 year old with hx of ma ssive CVA x5 (per patient), hypertension, atrial fibrillation, diabe hipolito mellitus, coronary artery disease, status post stent placement presented to the ED for altered mental status. Mentation improved and patient is on 1:1 sitter History Past History Medications: Home Medications: Medication Dose/Rte/Freq Days Qty Entered Last Max Daily Dose Reviewed CITALOPRAM (CeleXA) 10 MG PO DAILY 08/08/1807/22 Strength: 10 MG TAB 2343 193 HYDROCHLOROTHIAZIDE 12.5 MG PO DAILY 08/08/18 1 07/30/21 (HCTZ) 2344 0459 Strength: 12.5 MG CAP SAXAGLIPTIN (ONGLYZA) 5 MG PO DAILY 08/08/18 Strength: 5 MG TAB 2344 1939 ASCORBIC ACID (VITAMIN C) 500 MG PO DAILY 08/0805/31/22 Strength: 500 MG TAB 2345 1940 ATORVASTATIN (LIPITOR) 40 MG PO BEDTIME 9 05/31/22 Strength: 40 MG TAB 2345 1939 FINASTERIDE (PROSCAR) 08/08/18 05/31/22 Strength: 5 MG TAB 2346 1940 TAMSULOSIN ER (FLOMAX) 0.8 MG PO DAILY 08/08/18 05/31/22 Strength: 0.4 MG CAP.SR.24H 6 193 APIXABAN (ELIQUIS) 5 MG PO BID 08/08/18 2 Strength: 5 MG TAB 2347 193 metFORMIN (GLUCOPHAGE) 850 MG PO TID 08/08/18 1 08/01/21 Strength: 850 MG TAB 2348 193 traZODone (DESYREL) 150 MG PO BEDTIME 08/08/18 05/31/22 Strength: 150 MG TAB 2349 193 OXYBUTYNIN (DITROPAN) 5 MG PO BID 08/08/1807/22 Strength: 5 MG TAB 2350 194 KETOCONAZOLE 1 APPLIC TOPICAL 08/08/18 2 (NIZORAL 2%) MOWEFR 2354 1938 Strength: 120 ML SHAMPOO KETOCONAZOLE 1 APPLIC TOPICAL 08/08/18 2 (NIZORAL 2%) DAILY 2354 1938 Strength: 75 GM CREAM traZODone (DESYREL) 150 MG PO 08/09/18 2 Strength: 150 MG TAB BEDTIME PRN 0000 1938 INSOMNIA OMEGA-3 FATTY ACIDS 1,000 MG PO DAILY 08/09/18 05/31/22 (FISH OIL) 0001 1938 Strength: 1,000 MG CAP DOCUSATE SODIUM 100 MG PO 30 08/10/18 05/31/22 (COLACE) Q12H PRN PRN 0922 1938 Strength: 100 MG CAP CONSTIPATION FLUTICASONE PROPIONATE 1 SPRAY NASAL BID 30 04/1805/31/22 (FLONASE 50 MCG/ACT 0923 1938 NASAL) Strength: 16 GM SPRAY FAMOTIDINE (PEPCID) 20 MG PO BID 30 08/10/18 Strength: 20 MG TAB 0924 0 METOPROLOL SUCC XL 25 MG PO DAILY 30 05/31/22 05/31/22 (TOPROL XL) 1043 1939 Strength: 25 MG TAB.SR.24H Current Hospital Medications: Anti-Infective Agents Sig/Manuel Start time Last Medication Dose Route Stop Time Status Admin Ketoconazole 1 APPLIC DAILY 05/30 900 AC 06/02 (Nizoral 2% Shampoo TOPICAL 06/13 859 09 120 ML) Autonomic Drugs Sig/Manuel Start time Last Medication Dose Route Stop Time Status Admin Tamsulosin HCl 0.8 MG DAILY 05/30 900 AC 06/04 (FLOMAX) PO 06/29 859 09 Blood Formation,Coagulation Sig/Manuel Start time Last Medication Dose Route Stop Time Status Admin Apixaban 5 MG Q12HR 05/31 2100 AC 06/04 (ELIQUIS) PO 06/14 Cardiovascular Drugs Sig/Manuel Start time Last Medication Dose Route Stop Time Status Admin Lisinopril 2.5 MG DAILY 06/01 900 AC 06/04 (ZESTRIL) PO 07/01 0859 09 Metoprolol Succinate 25 MG DAILY 06/01 900 AC 06/04 (TOPROL XL) PO 07/01 0859 0928 Atorvastatin Calcium 40 MG BEDTIME 05/30 2100 A C 06/04 (LIPITOR) PO 06/29 Central Nervous System Agents Sig/Manuel Start time Last Medication Dose Route Stop Time Status Admin Divalproex Sodium 500 MG BID 06/01 2100 AC 12/0 5 (DEPAKOTE) PO 07/01 Aspirin 81 MG DAILY 05/30 113 AC 06/04 (ECOTRIN) PO 06/29 113 09 Citalopram 10 MG DAILY 05/30 09 AC 06/04 Hydrobromide PO 06/29 859 09 (CeleXA) Trazodone HCl 150 MG BEDTIME PRN 05/30 0500 AC 06/01 (DESYREL) PO 06/29 045 0157 Electrolytic, Caloric, And Shanique Sig/Manuel Start time Last Medication Dose Route Stop Time Status Admin Dextrose/Water 50 ML ASDIR PRN 05/30 0515 CKD (Dextrose 50% W IV 06/29 0514 SYRINGE) Gastrointestinal Drugs Sig/Manuel Start time Last Medication Dose Route Stop Time Status Admin Docusate Sodium 100 MG Q12H PRN PRN 05/30 0500 AC (COLACE) PO 06/29 0459 Hormones And Synthetic Substit Sig/Manuel Start time Last Medication Dose Route Stop Time Status Admin Insulin Human Lispro See Dose AC HS 05/30 0730 AC 06/04 (HUMALOG) Insts (1) SUBQ 06/29 0729 1731 Miscellaneous Therapeutic Agen Sig/Manuel Start time Last Medication Dose Route Stop Time Status Admin Finasteride 5 MG DAILY 05/30 09 AC 06/04 (PROSCAR) PO 06/29 459 0927 Smooth Muscle Relaxants Sig/Manuel Start time Last Medication Dose Route Stop Time Status Admin Oxybutynin Chloride 5 MG BID 05/30 09 AC 12/0 5 (DITROPAN) PO 06/29 Dose Instructions: (1)Insulin Human Lispro (HUMALOG): S/SCALE LOW Allergies: Coded Allergies: No Known Allergies (05/29/22) Unable to Obtain History Unable to obtain due to: altered mental status Review of Systems Unable to obtain due to: altered and circular in reasoning Objective VS/I O: Last Documented: Result Date Time Pulse Ox 98 06/04 2028 B/P 133/73 06/04 2028 B/P Mean 92.8 06/04 2028 Temp 99.5 06/04 2028 Pulse 63 06/04 2028 Resp 16 06/04 2028 O2 Delivery Room air 06/04 163 24 hour I O ending at 0700: 06/04 0700 06/03 1900 Intake Total 500 Output Total Balance 500 Intake, Oral 500 General appearance: chronically ill appearing Head/Eyes: atraumatic Neck: no JVD Cardiovascular: no rub Respiratory: symmetric expansion Extremities: no edema Musculoskeletal: fair muscle tone Neuro/PRECISION LENS GENERATOR: disoriented Skin: lesions (multiple abrasions) Wound Assessment Wound Assessment 1: Type/cause: pressure Wound location: heel Tissue layers: limited to skin breakdown Site condition: no drainage, no ecchymosis, no erythema Stage of pressure ulcer: stage I Wound Assessment 2: Type/cause: chronic Wound location: foot Site condition: no drainage, no ecchymosis, no erythema Wound Assessment 3: Type/cause: pressure Wound location: buttock Site condition: no drainage, no ecchymosis, no erythema Stage of pressure ulcer: stage II Diagnosis, Assessment Plan Problem List/A P: 1. Decubitus ulcer of buttock, stage 2 A P cleanse with soap and water and pad down dry apply moisturizer cream (Remedy purple bottle) leave open to air carry this out once every RN shift 2. Pressure injury of heel, stage [address] in heel boots 3. Abrasions of multiple sites 4. Chronic foot ulcer A P leave open to air 5. Altered mental status Electronically Signed by Yakov Kate MD on 11/19 at 2225 RPT #: [id number] END OF REPORT 2022-06-04 14:23:00-00:00 [facility] ([facility]) Hospitalist Progress Note REPORT#:[id number] REPORT STATUS: Signed DATE:06/04/22 TIME:3 PATIENT: FRAN SANTAMARIA UNIT #: [id number] ROOM/BED: .S218-1 : 50 AGE: 71 SEX: M ATTEND: Jacky Gutierrez MD ADM AUTHOR: Cheikh Gutierrez MD * ALL edits or amendments must be made on the [employer]/computer document * Subjective Chief complaint: No acute events HPI: 71-year-old male with PMHx o f massive CVA x5 (per patient), hypertension, atrial fibrillation, diabetes mellitus, coronary artery disease, status post stent placement presented to the ED for altered mental status. Of note, it was unclear when the patient was last seen at his no rmal baseline mental status. The staff at his nursing facility notice d that he had repetitive speech today. In the ED, his NIH score was reported as 0. Head CT and CTA no acute findings or significant stenosis. He was not a candidate for tPA or endovascular therapy due to the time of onset of his symptoms and because the patient is on Eliquis. EKG showed A-fib with HR 77. UA negative for UTI . Found elevated troponin. Vitals stable. Upon my evalu ation patient is alert, orientated x4, appearing his mentation back to at his baseline. He is a good historian. Denies dizziness, chest pain, shortness of suzanne ath, abdominal pain, or nausea vomiting. Patient is incontinence. Patient just wants to be changed. Noted involuntary jerking movement of the left upper extremity. Ashleigh gloria states he usually has low BP. BP nl during ED stay. He is admitted for further ev aluation and management. Objective General VS/I O: Vital Signs: Date Time Temp Pulse Resp B/P B/P Pulse O2 O2 F low FiO2 Mean Ox Delivery Rate 06/04 1057 97.5 52 16 116/64 81.3 99 Room air 06/04 0754 97.5 70 14 131/77 94.9 98 Room air 06/04 0348 97.5 63 14 132/74 93.4 98 06/03 2340 98.6 53 15 121/55 77.1 98 06/03 1936 98.1 60 14 117/58 77.5 99 24 hour I O ending at 0700: 06/04 0700 06/03 1900 Intake Total 500 Output Total Balance 500 Intake, Oral 500 PATIENT WEIGHT: Weight (lb): Weight (oz): Weight (kg): 71.400 Medications: Active Meds + DC'd Last 24 Hrs Divalproex Sodium (DEPAKOTE) 500 MG BID PO Lisinopril (ZESTRIL) 2.5 MG DAILY PO Metoprolol Succinate (TOPROL XL) 25 MG DAILY PO Apixaban (ELIQUIS) 5 MG Q12HR PO Atorvastatin Calcium (LIPITOR) 40 MG BEDTIME PO Aspirin (ECOTRIN) 81 MG DAILY PO Citalopram Hydrobromide (CeleXA) 10 MG DAILY PO Finasteride (PROSCAR) 5 MG DAILY PO Ketoconazole (Nizoral 2% Shampoo 120 ML) 1 APPLI C DAILY TOPICAL Oxybutynin Chloride (DITROPAN) 5 MG BID PO Tamsulosin HCl (FLOMAX) 0.8 MG DAILY PO Insulin Human Lispro (HUMALOG) S/SCALE LOW AC HS SUBQ Dextrose/Water (Dextrose 50% W SYRINGE) 50 ML DIR PRN IV (CKD) Docusate Sodium (COLACE) 100 MG Q12H PRN PRN PO Trazodone HCl (DESYREL) 150 MG BEDTIME PRN PO Physical Exam General appearance: alert Head/Eyes: atraumatic, normal conjunctiva/sclera , normal eyelids/periorb., normocephalic, PERRL ENT: moist mucosal membranes Neck: full range of motion, normal thyroid, supp le/no meningismus, no JVD, no masses or swelling Cardiovascular: normal capillary refill, normal heart sounds, regular rate rhythm Respiratory: aerating well, clear to auscultatio n, symmetric expansion, no distress Abdomen: non-tender, normal bowel sounds, soft, no distention Genitourinary: urine, no flank pain Extremities: normal capillary refill, no cyanosi s, no edema Musculoskeletal: normal inspection Neuro/PRECISION LENS GENERATOR: right hemiparesis, alert, oriented X 3, normal speech, no sensory deficits Skin: normal color, normal temperature Lymphatics: neck normal, no lymphadenopathy Psychiatry: normal affect Results Findings/Data: Laboratory Tests 06/04 06/04 06/03 06/03 1053 0415 2000 1710 Chemistry Sodium (134 - 147 mmol/L) 131 L Potassium (3.4 - 5.0 mmol/L) 3.9 Chloride (100 - 108 mmol/L) 101 Carbon Dioxide (21 - 32 mmol/L) 23 Anion Gap (4.0 - 15.0 GAP calc) 7.0 BUN (7 - 18 MG/DL) 8 Creatinine (0.8 - 1.3 MG/DL) 0.6 L Glomerular Filtr Rate (>60 estGFR) >=60 max est imate Glucose (70 - 110 MG/DL) 108 POC Glucose (70 - 110 mg/dL) 139 H 218 H 118 H Calcium (8.5 - 10.1 MG/DL) 7.3 L Laboratory Tests 06/04 0342 Hematology WBC (3.5 - 11.0 K/mm3) 6.1 RBC (4.70 - 6.10 M/mm3) 3.47 L Hgb (12.3 - 15.9 G/DL) 8.5 L Hct (35.8 - 46.7 %) 26.9 L MCV (86.3 - 98.9 Fl) 77.5 L MCH (28.9 - 34.4 pg) 24.5 L MCHC (32.1 - 34.5 G/DL) 31.6 L RDW (11.5 - 14.5 SD) 18.4 H Plt Count (150 - 450 K/mm3) 143 L MPV (7.0 - 9.6 fL) 10.70 H Neut % (Auto) (40 - 76 %) 69.1 Lymph % (Auto) (20.5 - 51.1 %) 13.6 L Centre % (Auto) (1.7 - 9.3 %) 10.3 H Eos % (Auto) (0.0 - 6.0 %) 4.9 Baso % (Auto) (0.0 - 2.0 %) 1.0 Neut # (Auto) (1.8 - 7.6 K/mm3) 4.2 Lymph # (Auto) (0.6 - 3.0 K/mm3) 0.8 Centre # (Auto) (0.2 - 1.5 K/mm3) 0.6 Eos # (Auto) (0.0 - 0.4 K/mm3) 0.3 Baso # (Auto) (0.0 - 0.2 K/mm3) 0.1 Abs Immat Gran (auto) (0.00 - 0.03 x10 3/uL) 0. 07 H Add Manual Diff (CRITERIA DIFF/SCN) NO Immature Gran % (0.0 - 5.0 %) 1.1 Nucleated RBC % (0.0 - 1.0 /100WBC%) 0.0 Diagnosis, Assessment Plan Consultants: cardiology Free Text DxA P Notes Free text DxA P notes: 71 yo male with PMHX of multiple CVAx5, CAD, HTN , DM2 admitted for 1. Acute metabolic encephalopathy-Baseline demen tia-resolved and back to baseline, MRI brain shows no acute process - Lef t frontoparietal convexity meningioma again noted -Concern is that of seizure with postict al confusion. Neurology added depakote appearing back to his baseline no obvious convincing metabolic or neurologic e tiology head CT/CTA no significant acute abnormality 2. Elevated troponin-type II NC trended troponin x3 Monitor on the telemetry pt is on Eliquis for A-fib 3. Hyponatremia - resolved unknown etiology Resolved with IVF, BS control, repeat bmp home med HCTZ 5. Atrial fibrillation - rate controlled continue Eliquis not on BB HR controlled 6. DM2 ACHS SSI VTE ppx: on Eliquis Full code Work-up negative, symptoms resolved, back to bas yair Discussed with Daughter and [facility]'s [facility] - Consulted CM Awaiting placement Possible DC once placement is arranged Electronically Signed by Cheikh Gutierrez MD on at 1424 RPT #: [id number] END OF REPORT 2022-06-04 09:10:00-00:00 [facility] ([facility]) Cardiology Progress Note REPORT#:[id number] REPORT STATUS: Signed DATE:06/04/22 TIME:909 PATIENT: FRAN SANTAMARIA UNIT #: [id number] ROOM/BED: [place] [address] : 50 AGE: 71 SEX: M ATTEND: Jacky Gutierrez MD ADM AUTHOR: Sheree Junior ACNP * ALL edits or amendments must be made on the [employer]/computer document * Subjective Patient reports: No: complaints, chest pain, palpitations, shortn ess of breath. Objective General VS/I O: 24 hour I O ending at 0700: 06/04 0700 12 1900 Intake Total 500 Output Total Balance 500 Intake, Oral 500 Vital Signs Date Temp Pulse Resp B/P B/P Mean Pulse Ox FiO2 06/03-06/04 36.4-37.0 49-70 14-16 117-132/55-77 77.1-94.9 98-100 PATIENT WEIGHT: Weight (lb): Weight (oz): Weight (kg): 71.400 Medications: Active Meds + DC'd Last 24 Hrs Divalproex Sodium (DEPAKOTE) 500 MG BID PO Lisinopril (ZESTRIL) 2.5 MG DAILY PO Metoprolol Succinate (TOPROL XL) 25 MG DAILY PO Apixaban (ELIQUIS) 5 MG Q12HR PO Atorvastatin Calcium (LIPITOR) 40 MG BEDTIME PO Aspirin (ECOTRIN) 81 MG DAILY PO Citalopram Hydrobromide (CeleXA) 10 MG DAILY PO Finasteride (PROSCAR) 5 MG DAILY PO Ketoconazole (Nizoral 2% Shampoo 120 ML) 1 APPLI C DAILY TOPICAL Oxybutynin Chloride (DITROPAN) 5 MG BID PO Tamsulosin HCl (FLOMAX) 0.8 MG DAILY PO Insulin Human Lispro (HUMALOG) S/SCALE LOW AC HS SUBQ Dextrose/Water (Dextrose 50% W SYRINGE) 50 ML DIR PRN IV (CKD) Docusate Sodium (COLACE) 100 MG Q12H PRN PRN PO Trazodone HCl (DESYREL) 150 MG BEDTIME PRN PO Physical Exam General appearance: chronica lly ill appearing, alert, awake, no acute distress, pleasant, conversational Neck: non-tender, no JVD Cardiovascular: CV assessment: irregularly irregular Murmur assessment: heart murmur Respiratory: decreased breath sounds, no distres s Abdomen: soft, non-tender, normal bowel sounds, no distention Genitourinary: no flank pain, no urinary cathete r Lower extremity: LE assessment: no calf tenderness, no edema Musculoskeletal: decreased ROM Neuro/PRECISION LENS GENERATOR: alert (confused) Skin: poor skin turgor Psychiatry: abnl judgment/insight, normal mood Results Findings/Data: Laboratory Tests 06/04/22 0415: [Embedded Image Not Available] 06/04/22 0342: [Embedded Image Not Available] 06/03/22 0450: [Embedded Image Not Available] Results: labs reviewed, vital signs reviewed, ythm personally rev'd Telemetry Interpretation: afib with controlled rate Diagnosis, Assessment Plan Plan discussed with: patient Free Text DxA P Notes Free Text DxA P Notes: 71 YO male chronically ill-looking male, appear confused, hx provided by [facility]. The patient has PMH of CVA, AFib on Eliquis, CAD with prior PCI who presented to ED with abnormal speech. Initial Head imaging negative for acute IC finding. Troponin came back elevated and cardiology consultation is requested. Troponin: 160.5->223.5. EKG showed atr ial fibrillation with controlled rate, no acute ST/ T wave changes. 1. Chronc atrial fibrillation - rate control continue metoprolol XL and Eliquis 5 mg BID echocardiogram LVEF 45-49%, no signficant valvul ar disease 2. Positive troponin - likely Type II NC Known CAD with prior stent leaning toward Type II NC in the setting of poss ible TIA or ?UTI Troponin: 160.5->223.5->100.1->61.6 continue ASA 81 mg daily, atorvastatin 4 0 mg daily, metoprolol suc 25 mg daily echocardiogram LVEF 45-49% telemetry outpatient stresst test 3. Speech disturbance ? TIA, ?encephalopathy, ? Dementia per primary team patient is pleasantly confused 4. UA positive for bacteriuria manage per primary team 5. Hx of CVA 6. Hypertension continue low dose ACEI and BB 7. LV Systolic dysfunction LVEF 45-49% continue metoprolol succinate 25 mg daily and li sinopril 2.5 mg daily no congestive symptoms CHARLIEA/sister Ayla Ace phone [phone]. No further cardiac workup. Outpatient follow-up with Dr. Chavez in 2 weeks. at 1104 Electronically Signed by Sarah Chavez MD on at 1000 RPT #: [id number] END OF REPORT 2022-06-03 19:16:00-00:00 [facility] ([facility]) Infect Disease Consult Note REPORT#:[id number] REPORT STATUS: Signed DATE:06/03/22 TIME:1915 PATIENT: FRAN SANTAMARIA UNIT #: [id number] ROOM/BED: [place] [address] : 50 AGE: 71 SEX: M ATTEND: Jacky Gutierrez MD ADM AUTHOR: aDvid Stringer MD * ALL edits or amendments must be made on the el ectronic/computer document * History of Present Illness Chief complaint: R/o scabies HPI: 71-year-old male with h/o massive CVA x5 (per ashleigh gloria), hypertension, atrial fibrillation, diabetes mellitus, coronar y artery disease, who presented to the ED for worsening confusion associated with repet itive speech. Of note, it was unclear when the patient was last seen at his normal baseline mental status. In the ED, Head CT and CTA showed no acute findings. ID consulted to r/o scabies. History - Adult longitudinal Past medical history: Reports: Atrial fibrillation, Coronary artery di sease, Hypertension, Ischemic stroke. Additional medical history: CVA, hypertension, atrial fibrillation, diabetes mellitus, coronary artery disease Past surgical history: Reports: PCI. Family history: Reports: Diabetes. 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 Review of Systems Unable to obtain due to: Confused Objective General VS/I O: Vital Signs Date Temp Pulse Resp B/P B/P Mean Pulse Ox FiO2 06/02-06/03 36.4-36.7 49-76 16 114-129/50-68 74 .0-87.9 98-100 Last Documented: Result Date Time Pulse Ox 100 06/03 1105 B/P 126/63 / 1105 B/P Mean 84.1 06/03 1105 Temp 36.6 12/ 1105 Pulse 49 / 1105 Resp 16 06/03 1105 O2 Delivery Room air 06/03 0453 Vital Signs: Date Time Temp Pulse Resp B/P B/P Pulse O2 O2 F low FiO2 Mean Ox Delivery Rate 06/03 1105 36.6 49 16 126/63 84.1 100 / 0721 36.4 76 16 129/68 87.9 98 06/03 0453 36.4 69 16 122/50 74.0 98 Room air 06/02 2258 36.7 72 16 114/66 81.7 99 Room air PATIENT WEIGHT: Weight (lb): Weight (oz): Weight (kg): 71.400 Physical Exam General appearance: chronically ill appearing, a wake Head/Eyes: atraumatic, clear cornea, EOMI, vicente l conjunctiva/sclera, normal eyelids/periorb, normocephalic ENT: moist mucosal membranes, normal nose Neck: full range of motion, non-tender, supple/n o meningismus Cardiovascular: regular rate rhythm Respiratory: symmetric expansion, no distress Abdomen: normal bowel sounds, soft, no CVA tende rness, no distention, no guarding Genitourinary: no flank pain Extremities: no clubbing, no cyanosis Musculoskeletal: no joint swelling Neuro/PRECISION LENS GENERATOR: altered mental status Skin: Multiple signs of scratching in th e legs and arms, I did not see lesions in the interdigital regions. No vesicles. Psychiatry: abnl judgment/insight, normal mood Diagnosis, Assessment Plan Free Text DxA P Notes Free text DxA P notes: Laboratory Tests 06/03/22 0450: [Embedded Image Not Available] Imaging: MRI brain reviewed 05/30 CXR reviewed 05/29 Assessment: 1. Rash. 2. Encephalopathy. Plan: 1. I do not think the clinical findings are c/w scabies, I am most concerned about possible bedbugs. 2. Recommend infection control evaluation. 3. Monitor CBC and temperature. 4. Case discussed with hospitalist. Thank you for this consult. at 1107 RPT #: [id number] END OF REPORT 2022-06-03 11:15:00-00:00 [facility] ([facility] Neurology Progress Note REPORT#:[id number] REPORT STATUS: Signed DATE:06/03/22 TIME:1115 PATIENT: FRAN SANTAMARIA UNIT #: [id number] ROOM/BED: [facility]18-1 : 50 AGE: 71 SEX: M ATTEND: Jacky Gutierrez MD ADM AUTHOR: Romy Marie MD * ALL edits or amendments must be made on the el ectronic/computer document * Subjective Chief Complaint: Altered mental status HPI: Resting comfortably. Offers no new complaints. Review of Systems All systems rev neg: except as marked Objective General VS: Last Documented: Result Date Time Pulse Ox 99 06/03 1936 B/P 117/58 06/03 1936 B/P Mean 77.5 06/03 1936 Temp 36.7 06/03 1936 Pulse 60 06/03 1936 Resp 14 06/03 1936 O2 Delivery Room air 06/03 453 PATIENT WEIGHT: Weight (lb): Weight (oz): Weight (kg): 71.400 Medications Current Home Medications CITALOPRAM (CeleXA) 10 MG PO DAILY HYDROCHLOROTHIAZIDE (HCTZ) 12.5 MG PO DAILY SAXAGLIPTIN (ONGLYZA) 5 MG PO DAILY ASCORBIC ACID (VITAMIN C) 500 MG PO DAILY ATORVASTATIN (LIPITOR) 40 MG PO BEDTIME FINASTERIDE (PROSCAR) TAMSULOSIN ER (FLOMAX) 0.8 MG PO DAILY APIXABAN (ELIQUIS) 5 MG PO BID metFORMIN (GLUCOPHAGE) 850 MG PO TID traZODone (DESYREL) 150 MG PO BEDTIME OXYBUTYNIN (DITROPAN) 5 MG PO BID KETOCONAZOLE (NIZORAL 2%) 1 APPLIC TOPICAL MOWEF R KETOCONAZOLE (NIZORAL 2%) 1 APPLIC TOPICAL DAILY traZODone (DESYREL) 150 MG PO BEDTIME PRN INSOMN IA OMEGA-3 FATTY ACIDS (FISH OIL) 1,000 MG PO DAILY DOCUSATE SODIUM (COLACE) 100 MG PO Q12H PRN PRN CONSTIPATION FLUTICASONE PROPIONATE (FLONASE 50 MCG/ACT NASAL ) 1 SPRAY NASAL BID FAMOTIDINE (PEPCID) 20 MG PO BID METOPROLOL SUCC XL (TOPROL XL) 25 MG PO DAILY Active Meds + DC'd Last 24 Hrs Divalproex Sodium (DEPAKOTE) 500 MG BID PO Lisinopril (ZESTRIL) 2.5 MG DAILY PO Metoprolol Succinate (TOPROL XL) 25 MG DAILY PO Apixaban (ELIQUIS) 5 MG Q12HR PO Atorvastatin Calcium (LIPITOR) 40 MG BEDTIME PO Aspirin (ECOTRIN) 81 MG DAILY PO Citalopram Hydrobromide (CeleXA) 10 MG DAILY PO Finasteride (PROSCAR) 5 MG DAILY PO Ketoconazole (Nizoral 2% Shampoo 120 ML) 1 APPLI C DAILY TOPICAL Oxybutynin Chloride (DITROPAN) 5 MG BID PO Tamsulosin HCl (FLOMAX) 0.8 MG DAILY PO Insulin Human Lispro (HUMALOG) S/SCALE LOW AC HS SUBQ Dextrose/Water (Dextrose 50% W SYRINGE) 50 ML DIR PRN IV (CKD) Docusate Sodium (COLACE) 100 MG Q12H PRN PRN PO Trazodone HCl (DESYREL) 150 MG BEDTIME PRN PO Physical Exam General appearance: alert, awake Neck: no masses or swelling Respiratory: aerating well, no distress Extremities: moves all Neuro/PRECISION LENS GENERATOR: alert, oriented X 4, normal speech, E RO Neuro comment: rash all over body more in the lower extremities with some tracks Speech Speech: normal Mental Status Orientation: Yes: to time, to place, to person. No: to situat ion. Mental status comments: he was oriented to the month, year and president Cranial Nerves Cranial nerves comments: PERRL, EOMI, no gaze deviatiion. right NL flatte luis Sensory Exam Sensory comments: Decreased pinprick sensation in bilateral toes Motor Testing Motor testing comments: Normal strength throughout except, right leg wit h contraction, patient reports right knee pain Cerebellar Test Cerebellar test: Normal R finger/nose/finger, Normal L finger/nos e/finger Nystagmus: absent Reflexes Plantar reflexes: Up: Right. Down: Left. Gait Gait comments: Deferred Results Findings/Data: Laboratory Tests 06/03 1710 1109 0754 Chemistry POC Glucose (70 - 110 mg/dL) 218 H 118 H 179 H 126 H Laboratory Tests 06/03 0450 Hematology WBC (3.5 - 11.0 K/mm3) 7.7 RBC (4.70 - 6.10 M/mm3) 3.77 L Hgb (12.3 - 15.9 G/DL) 9.2 L Hct (35.8 - 46.7 %) 29.0 L MCV (86.3 - 98.9 Fl) 76.9 L MCH (28.9 - 34.4 pg) 24.4 L MCHC (32.1 - 34.5 G/DL) 31.7 L RDW (11.5 - 14.5 SD) 17.0 H Plt Count (150 - 450 K/mm3) 195 MPV (7.0 - 9.6 fL) 11.00 H Neut % (Auto) (40 - 76 %) 67.6 Lymph % (Auto) (20.5 - 51.1 %) 13.4 L Centre % (Auto) (1.7 - 9.3 %) 9.3 Eos % (Auto) (0.0 - 6.0 %) 7.9 H Baso % (Auto) (0.0 - 2.0 %) 1.0 Neut # (Auto) (1.8 - 7.6 K/mm3) 5.2 Lymph # (Auto) (0.6 - 3.0 K/mm3) 1.0 Centre # (Auto) (0.2 - 1.5 K/mm3) 0.7 Eos # (Auto) (0.0 - 0.4 K/mm3) 0.6 H Baso # (Auto) (0.0 - 0.2 K/mm3) 0.1 Abs Immat Gran (auto) (0.00 - 0.03 x10 3/uL) 0. 06 H Add Manual Diff (CRITERIA DIFF/SCN) NO Immature Gran % (0.0 - 5.0 %) 0.8 Nucleated RBC % (0.0 - 1.0 /100WBC%) 0.0 Results: labs reviewed Diagnosis, Assessment Plan Free Text A P: 71 years old male who is being evaluated for alt ered mental status. CT of the brain - No evidence of acute pathology . Senescent changes. Left frontal encephalomalacia unchanged. CTA head and neck - Scattered atherosclerotic pl aque with mild less than 50% narrowing at the left carotid bifurcation. No other area o f significant stenosis. No intracranial large vessel occlusion. Hemoglobin A1c 6.0, LDL 43 Diagnoses: 1. Acute encephalopathy 2. History of chronic infarcts 3. Atrial fibrillation 4. Diabetes mellitus 5. Dementia 6. CAD 7. History of tobacco use 8. Generalized rash Plan: Telemetry. Reviewed CT of the brain. Reviewed CTA head and neck. MRI of the brain - pending. Echo - pending. Continue Aspirin, statin and Eliquis. PT/OT and speech evaluation. Supportive care. Neurology to follow. 05/31 stable; no evidence for new stroke 06/01 review of MRI shows moderate to large area of encephalomalacia in Left superior fromtal area + what appears to be a meningioma j ust posterior to this. Concern is that of seizure with postictal co nfusion. Will add depakote and follow as outpatient in view of difficulty of obtaining EEG on the weekend. 06/02 - pending EEG. No reported seizures. Discus sed with nurse, patient. Mental status is better today. He is fully orien vent[place]. 06/03 - neurologically stable. Pending EEG. Suppo rtive care. Consultants: cardiology at 2119 RPT #: [id number] END OF REPORT 2022-06-03 07:46:00-00:00 [facility] ([facility]) Hospitalist Progress Note REPORT#:[id number] REPORT STATUS: Signed DATE:06/03/22 TIME:07 PATIENT: FRAN SANTAMARIA UNIT #: [id number] ROOM/BED: [place] [address] : 50 AGE: 71 SEX: M ATTEND: Jacky Gutierrez MD ADM AUTHOR: Anneliese Eden MD * ALL edits or amendments must be made on the [employer]/computer document * Subjective Chief complaint: stable and asleep HPI: 71-year-old male with PMHx o f massive CVA x5 (per patient), hypertension, atrial fibrillation, diabetes mellitus, coronary artery disease, status post stent placement presented to the ED for altered mental status. Of note, it was unclear when the patient was last seen at his [facility] baseline mental status. The staff at his nursing facility notice d that he had repetitive speech today. In the ED, his NIH score was reported as 0. Head CT and CTA no acute findings or significant stenosis. He was not a candidate for tPA or endovascular therapy due to the time of onset of his symptoms and because the patient is on Eliquis. EKG showed A-fib with HR 77. UA negative for UTI . Found elevated troponin. Vitals stable. Upon my evalu ation patient is alert, orientated x4, appearing his mentation back to at his baseline. He is a good historian. Denies dizziness, chest pain, shortness of suzanne ath, abdominal pain, or nausea vomiting. Patient is incontinence. Patient just wants to be changed. Noted involuntary jerking movement of the left upper extremity. Ashleigh gloria states he usually has low BP. BP nl during ED stay. He is admitted for further ev aluation and management. Objective General VS/I O: Vital Signs: Date Time Temp Pulse Resp B/P B/P Pulse O2 O2 F low FiO2 Mean Ox Delivery Rate 06/03 0721 97.5 76 16 129/68 87.9 98 06/03 0453 97.5 69 16 122/50 74.0 98 Room air 06/02 2258 98.1 72 16 114/66 81.7 99 Room air 06/02 1613 97.7 70 16 158/78 104.3 98 06/02 1121 98.2 57 16 132/67 89.0 98 PATIENT WEIGHT: Weight (lb): Weight (oz): Weight (kg): 71.400 Physical Exam General appearance: sleeping comfortably Head/Eyes: atraumatic, normal conjunctiva/sclera , normal eyelids/periorb., normocephalic, PERRL ENT: moist mucosal membranes Neck: full range of motion, normal thyroid, supp le/no meningismus, no JVD, no masses or swelling Cardiovascular: normal capillary refill, normal heart sounds, regular rate rhythm Respiratory: aerating well, clear to auscultatio n, symmetric expansion, no distress Abdomen: non-tender, normal bowel sounds, soft, no distention Genitourinary: urine, no flank pain Extremities: normal capillary refill, no cyanosi s, no edema Musculoskeletal: normal inspection Neuro/PRECISION LENS GENERATOR: right hemiparesis, alert, oriented X 3, normal speech, no sensory deficits Skin: normal color, normal temperature Lymphatics: neck normal, no lymphadenopathy Psychiatry: normal affect Results Findings/Data: Laboratory Tests 06/02 1615 1123 Chemistry POC Glucose (70 - 110 mg/dL) 221 H 128 H 188 H Laboratory Tests 06/03 0450 Hematology WBC (3.5 - 11.0 K/mm3) 7.7 RBC (4.70 - 6.10 M/mm3) 3.77 L Hgb (12.3 - 15.9 G/DL) 9.2 L Hct (35.8 - 46.7 %) 29.0 L MCV (86.3 - 98.9 Fl) 76.9 L MCH (28.9 - 34.4 pg) 24.4 L MCHC (32.1 - 34.5 G/DL) 31.7 L RDW (11.5 - 14.5 SD) 17.0 H Plt Count (150 - 450 K/mm3) 195 MPV (7.0 - 9.6 fL) 11.00 H Neut % (Auto) (40 - 76 %) 67.6 Lymph % (Auto) (20.5 - 51.1 %) 13.4 L Centre % (Auto) (1.7 - 9.3 %) 9.3 Eos % (Auto) (0.0 - 6.0 %) 7.9 H Baso % (Auto) (0.0 - 2.0 %) 1.0 Neut # (Auto) (1.8 - 7.6 K/mm3) 5.2 Lymph # (Auto) (0.6 - 3.0 K/mm3) 1.0 Centre # (Auto) (0.2 - 1.5 K/mm3) 0.7 Eos # (Auto) (0.0 - 0.4 K/mm3) 0.6 H Baso # (Auto) (0.0 - 0.2 K/mm3) 0.1 Abs Immat Gran (auto) (0.00 - 0.03 x10 3/uL) 0. 06 H Add Manual Diff (CRITERIA DIFF/SCN) NO Immature Gran % (0.0 - 5.0 %) 0.8 Nucleated RBC % (0.0 - 1.0 /100WBC%) 0.0 Diagnosis, Assessment Plan Consultants: cardiology Free Text DxA P Notes Free text DxA P notes: 71 yo male with PMHX of multiple CVAx5, CAD, HTN , DM2 admitted for 1. Acute metabolic encephalopathy-Baseline demen tia-resolved and back to baseline, MRI brain shows no acute process - Lef t frontoparietal convexity meningioma again noted -Concern is that of seizure with postict al confusion. Neurology added depakote appearing back to his baseline no obvious convincing metabolic or neurologic e tiology head CT/CTA no significant acute abnormality 2. Elevated troponin-type II NC trended troponin x3 Monitor on the telemetry pt is on Eliquis for A-fib 3. Hyponatremia - resolved unknown etiology Resolved with IVF, BS control, repeat bmp home med HCTZ 5. Atrial fibrillation - rate controlled continue Eliquis not on BB HR controlled 6. DM2 ACHS SSI VTE ppx: on Eliquis Full code Work-up negative, symptoms resolved, back to bas yair Discussed with Daughter and she's [facility] - Consulted CM Electronically Signed by Anneliese Eden MD on 1 08/04/21 at 0748 [facility] #: [id number] END OF REPORT 2022-06-02 11:36:00-00:00 [facility] ([facility]) Hospitalist Progress Note REPORT#:[id number] REPORT STATUS: Signed DATE:06/02/22 TIME:1136 PATIENT: FRAN SANTAMARIA UNIT #: [id number] ROOM/BED: [place] [address] : 50 AGE: 71 SEX: M ATTEND: Jacky Gutierrez MD ADM AUTHOR: Anneliese Eden MD * ALL edits or amendments must be made on the [employer]/computer document * Subjective Chief complaint: stable HPI: 71-year-old male with PMHx o f massive CVA x5 (per patient), hypertension, atrial fibrillation, diabetes mellitus, coronary artery disease, status post stent placement presented to the ED for altered mental status. Of note, it was unclear when the patient was last seen at his [facility] baseline mental status. The staff at his nursing facility notice d that he had repetitive speech today. In the ED, his NIH score was reported as 0. Head CT and CTA no acute findings or significant stenosis. He was not a candidate for tPA or endovascular therapy due to the time of onset of his symptoms and because the patient is on Eliquis. EKG showed A-fib with HR 77. UA negative for UTI . Found elevated troponin. Vitals stable. Upon my evalu ation patient is alert, orientated x4, appearing his mentation back to at his baseline. He is a good historian. Denies dizziness, chest pain, shortness of suzanne ath, abdominal pain, or nausea vomiting. Patient is incontinence. Patient just wants to be changed. Noted involuntary jerking movement of the left upper extremity. Pa tient states he usually has low BP. BP nl during ED stay. He is admitted for further ev aluation and management. Objective Physical Exam General appearance: confused Head/Eyes: atraumatic, normal conjunctiva/sclera , normal eyelids/periorb., normocephalic, PERRL ENT: moist mucosal membranes Neck: full range of motion, normal thyroid, supp le/no meningismus, no JVD, no masses or swelling Cardiovascular: normal capillary refill, normal heart sounds, regular rate rhythm Respiratory: aerating well, clear to auscultatio n, symmetric expansion, no distress Abdomen: non-tender, normal bowel sounds, soft, no distention Genitourinary: urine, no flank pain Extremities: normal capillary refill, no cyanosi s, no edema Musculoskeletal: normal inspection Neuro/PRECISION LENS GENERATOR: right hemiparesis, alert, oriented X 3, normal speech, no sensory deficits Skin: normal color, normal temperature Lymphatics: neck normal, no lymphadenopathy Psychiatry: normal affect Diagnosis, Assessment Plan Consultants: cardiology Free Text DxA P Notes Free text DxA P notes: 71 yo male with PMHX of multiple CVAx5, CAD, HTN , DM2 admitted for 1. Acute metabolic encephalopathy-Baseline demen tia-resolved and back to baseline, MRI brain shows no acute process - Lef t frontoparietal convexity meningioma again noted -Concern is that of seizure with postict al confusion. Neurology added depakote appearing back to his baseline no obvious convincing metabolic or neurologic e tiology head CT/CTA no significant acute abnormality neuro check 2. Elevated troponin-type II NC trend troponin x3, EKG x3 Monitor on the telemetry pt is on Eliquis for A-fib 3. Hyponatremia unknown etiology Resolved with IVF, BS control, repeat bmp home med HCTZ 5. Atrial fibrillation continue Eliquis not on BB HR controlled 6. DM2 ACHS SSI VTE ppx: on Eliquis Full code Work-up negative, symptoms resolved, back to frank yair Discussed with Daughter and she's [facility] - Consult CM at 1138 RPT #: [id number] END OF REPORT 2022-06-02 10:42:00-00:00 [facility] ([facility]) Neurology Progress Note REPORT#:[id number] REPORT STATUS: Signed DATE:06/02/22 TIME:1042 PATIENT: FRAN SANTAMARIA UNIT #: [id number] ROOM/BED: S210-1 : 50 AGE: 71 SEX: M ATTEND: Jacky Gutierrez MD ADM AUTHOR: Romy Marie MD * ALL edits or amendments must be made on the el ectronic/computer document * Subjective Chief Complaint: Altered mental status HPI: Nurse present at the bedside. No overnight event s. No reported seizures. Review of Systems All systems rev neg: except as marked Objective General VS: Last Documented: Result Date Time Pulse Ox 98 06/02 161 B/P 158/78 06/02 161 B/P Mean 104.3 06/02 1613 Temp 36.5 06/02 1613 Pulse 70 06/02 1613 Resp 16 06/02 1613 O2 Delivery Room air / 1640 PATIENT WEIGHT: Weight (lb): Weight (oz): Weight (kg): 71.400 Medications Current Home Medications CITALOPRAM (CeleXA) 10 MG PO DAILY HYDROCHLOROTHIAZIDE (HCTZ) 12.5 MG PO DAILY SAXAGLIPTIN (ONGLYZA) 5 MG PO DAILY ASCORBIC ACID (VITAMIN C) 500 MG PO DAILY ATORVASTATIN (LIPITOR) 40 MG PO BEDTIME FINASTERIDE (PROSCAR) TAMSULOSIN ER (FLOMAX) 0.8 MG PO DAILY APIXABAN (ELIQUIS) 5 MG PO BID metFORMIN (GLUCOPHAGE) 850 MG PO TID traZODone (DESYREL) 150 MG PO BEDTIME OXYBUTYNIN (DITROPAN) 5 MG PO BID KETOCONAZOLE (NIZORAL 2%) 1 APPLIC TOPICAL MOWEF R KETOCONAZOLE (NIZORAL 2%) 1 APPLIC TOPICAL DAILY traZODone (DESYREL) 150 MG PO BEDTIME PRN INSOMN IA OMEGA-3 FATTY ACIDS (FISH OIL) 1,000 MG PO DAILY DOCUSATE SODIUM (COLACE) 100 MG PO Q12H PRN PRN CONSTIPATION FLUTICASONE PROPIONATE (FLONASE 50 MCG/ACT NASAL ) 1 SPRAY NASAL BID FAMOTIDINE (PEPCID) 20 MG PO BID METOPROLOL SUCC XL (TOPROL XL) 25 MG PO DAILY Active Meds + DC'd Last 24 Hrs Divalproex Sodium (DEPAKOTE) 500 MG BID PO Lisinopril (ZESTRIL) 2.5 MG DAILY PO Metoprolol Succinate (TOPROL XL) 25 MG DAILY PO Apixaban (ELIQUIS) 5 MG Q12HR PO Atorvastatin Calcium (LIPITOR) 40 MG BEDTIME PO Aspirin (ECOTRIN) 81 MG DAILY PO Citalopram Hydrobromide (CeleXA) 10 MG DAILY PO Finasteride (PROSCAR) 5 MG DAILY PO Ketoconazole (Nizoral 2% Shampoo 120 ML) 1 APPLI C DAILY TOPICAL Oxybutynin Chloride (DITROPAN) 5 MG BID PO Tamsulosin HCl (FLOMAX) 0.8 MG DAILY PO Albumin Human (OPTISON) 3 ML ONCE PRN IV (DC) Insulin Human Lispro (HUMALOG) S/SCALE LOW AC HS SUBQ Dextrose/Water (Dextrose 50% W SYRINGE) 50 ML DIR PRN IV (CKD) Docusate Sodium (COLACE) 100 MG Q12H PRN PRN PO Trazodone HCl (DESYREL) 150 MG BEDTIME PRN PO Physical Exam General appearance: alert, awake Neck: no masses or swelling Respiratory: aerating well, no distress Extremities: moves all Neuro/PRECISION LENS GENERATOR: alert, oriented X 4, normal speech, E RO Neuro comment: rash all over body more in the lower extremities with some tracks Speech Speech: normal Mental Status Orientation: Yes: to time, to place, to person. No: to situat ion. Mental status comments: he was oriented to the month, year and president Cranial Nerves Cranial nerves comments: PERRL, EOMI, no gaze deviatiion. right NL flatte luis Sensory Exam Sensory comments: Decreased pinprick sensation in bilateral toes Motor Testing Motor testing comments: Normal strength throughout except, right leg wit h contraction, patient reports right knee pain Cerebellar Test Cerebellar test: Normal R finger/nose/finger, Normal L finger/nos e/finger Nystagmus: absent Reflexes Plantar reflexes: Up: Right. Down: Left. Gait Gait comments: Deferred Results Findings/Data: Laboratory Tests 06/02 1615 1123 0740 Chemistry POC Glucose (70 - 110 mg/dL) 221 H 128 H 188 H 168 H Laboratory Tests 06/02 0147 Hematology WBC (3.5 - 11.0 K/mm3) 6.5 RBC (4.70 - 6.10 M/mm3) 3.80 L Hgb (12.3 - 15.9 G/DL) 9.2 L Hct (35.8 - 46.7 %) 29.7 L MCV (86.3 - 98.9 Fl) 78.2 L MCH (28.9 - 34.4 pg) 24.2 L MCHC (32.1 - 34.5 G/DL) 31.0 L RDW (11.5 - 14.5 SD) 16.7 H Plt Count (150 - 450 K/mm3) 180 MPV (7.0 - 9.6 fL) 9.90 H Neut % (Auto) (40 - 76 %) 70.8 Lymph % (Auto) (20.5 - 51.1 %) 11.9 L Centre % (Auto) (1.7 - 9.3 %) 9.6 H Eos % (Auto) (0.0 - 6.0 %) 6.2 H Baso % (Auto) (0.0 - 2.0 %) 0.9 Neut # (Auto) (1.8 - 7.6 K/mm3) 4.6 Lymph # (Auto) (0.6 - 3.0 K/mm3) 0.8 Centre # (Auto) (0.2 - 1.5 K/mm3) 0.6 Eos # (Auto) (0.0 - 0.4 K/mm3) 0.4 Baso # (Auto) (0.0 - 0.2 K/mm3) 0.1 Abs Immat Gran (auto) (0.00 - 0.03 x10 3/uL) 0. 04 H Add Manual Diff (CRITERIA DIFF/SCN) NO Immature Gran % (0.0 - 5.0 %) 0.6 Nucleated RBC % (0.0 - 1.0 /100WBC%) 0.0 Results: labs reviewed Diagnosis, Assessment Plan Free Text A P: 71 years old male who is being evaluated for alt ered mental status. CT of the brain - No evidence of acute pathology . Senescent changes. Left frontal encephalomalacia unchanged. CTA head and neck - Scattered atherosclerotic pl aque with mild less than 50% narrowing at the left carotid bifurcation. No other area o f significant stenosis. No intracranial large vessel occlusion. Hemoglobin A1c 6.0, LDL 43 Diagnoses: 1. Acute encephalopathy 2. History of chronic infarcts 3. Atrial fibrillation 4. Diabetes mellitus 5. Dementia 6. CAD 7. History of tobacco use 8. Generalized rash Plan: Telemetry. Reviewed CT of the brain. Reviewed CTA head and neck. MRI of the brain - pending. Echo - pending. Continue Aspirin, statin and Eliquis. PT/OT and speech evaluation. Supportive care. Neurology to follow. 05/31 stable; no evidence for new stroke 06/01 review of MRI shows moderate to large area of encephalomalacia in Left superior fromtal area + what appears to be a meningioma j ust posterior to this. Concern is that of seizure with postictal co nfusion. Will add depakote and follow as outpatient in view of difficulty of obtaining EEG on the weekend. 06/02 - pending EEG. No reported seizures. Discus sed with nurse, patient. Mental status is better today. He is fully orien ventura. Consultants: cardiology at 2212 RPT #: [id number] END OF REPORT 2022-06-02 07:21:00-00:00 [id number] [facility] [id number] [place] [id number] PATIENT NAME: FRAN SANTAMARIA ADMIT DATE: ACCOUNT NO: [id number] ROOM NO: S210 AGE: 71 REPORT TYPE: 360 - QUERY RESPONSE DOCUMENT SEX: M ADMITTING PHYSICIAN: Cheikh Gutierrez MD ATTENDING PHYSICIAN: Cheikh Gutierrez MD Provider Query QUERY TEXT: Clarification Skin Integrity 360MD Query related questions should be directed to: [email or web address] Based on your clinical judgment, please further clarify the known or suspected condition that represents the [insert wound location, description, size] documented i n [insert source document(s) and date(s)] The patient's Clinical Indicators include: Admission/Shift Assessment + at 05/30/2022 19:43 "Location (body): SACRUM Related clinical factors: BB:Incontinent bowel/b ladder Tissue type-worst: Red moist:Red/moist/smooth/sh allow Altered level/stage: Stage 2 - Pressure Injury" Hospitalist History Physical by Lucas Cueto at 05/30/2022 02:37 "Patient is incontinence." Neurology Consultation Note by Va Carroll at 12:10 "history of multiple strokes with residual right -sided weakness, baseline gait impairment" Admission/Shift Assessment + at 05/30/2022 19:43 "Gait impairment: Bed bound" Options provided: -- Pressure Ulcer, Please specify the specific s tage (e.g. I, II, III, IV, Unstageable). -- Non Pressure Ulcer, Please specify the area o f necrosis if any (e.g. skin breakdown, fat layer exposed, muscle necrosis, bone necrosis). -- Stasis ulcer/varix, Please specify with or wi thout inflammation. -- Cellulitis -- Dermatitis -- Other - I will add my own diagnosis -- Dismiss - Not applicable / Not valid -- Dismiss - Clinically unable to determine / Un known -- Assign to another provider QUERY RESPONSE: The patient has a pressure ulcer. Query created by: Elva Valdez on 06/01/2022 12:38 PM Electronically Signed by Cheikh Gutierrez MD on 1 08/03/21 at 0721 PATIENT NAME: FRAN SANTAMARIA [id number] 2022-06-01 15:41:00-00:00 [facility] ([facility] Neurology Progress Note REPORT#:[id number] REPORT STATUS: Signed DATE:06/01/22 TIME:1541 PATIENT: FRAN SANTAMARIA UNIT #: [id number] ROOM[address]BED: [address] : 50 AGE: 71 SEX: M ATTEND: Jacky Gutierrez MD ADM AUTHOR: Ramsey Marrero MD * ALL edits or amendments must be made on the el Sign[employer]/computer document * Subjective Patient reports: Yes: feeling better. Objective General VS: Last Documented: Result Date Time Pulse Ox 99 06/01 115 B/P 133/68 06/01 115 B/P Mean 89.7 06/01 1157 Temp 36.2 06/01 115 Pulse 76 06/01 115 Resp 18 06/01 115 O2 Delivery Room air 05/31 1640 PATIENT WEIGHT: Weight (lb): Weight (oz): Weight (kg): 71.400 Medications Current Home Medications CITALOPRAM (CeleXA) 10 MG PO DAILY HYDROCHLOROTHIAZIDE (HCTZ) 12.5 MG PO DAILY SAXAGLIPTIN (ONGLYZA) 5 MG PO DAILY ASCORBIC ACID (VITAMIN C) 500 MG PO DAILY ATORVASTATIN (LIPITOR) 40 MG PO BEDTIME FINASTERIDE (PROSCAR) TAMSULOSIN ER (FLOMAX) 0.8 MG PO DAILY APIXABAN (ELIQUIS) 5 MG PO BID metFORMIN (GLUCOPHAGE) 850 MG PO TID traZODone (DESYREL) 150 MG PO BEDTIME OXYBUTYNIN (DITROPAN) 5 MG PO BID KETOCONAZOLE (NIZORAL 2%) 1 APPLIC TOPICAL MOWEF R KETOCONAZOLE (NIZORAL 2%) 1 APPLIC TOPICAL DAILY traZODone (DESYREL) 150 MG PO BEDTIME PRN INSOMN IA OMEGA-3 FATTY ACIDS (FISH OIL) 1,000 MG PO DAILY DOCUSATE SODIUM (COLACE) 100 MG PO Q12H PRN PRN CONSTIPATION FLUTICASONE PROPIONATE (FLONASE 50 MCG/ACT NASAL ) 1 SPRAY NASAL BID FAMOTIDINE (PEPCID) 20 MG PO BID METOPROLOL SUCC XL (TOPROL XL) 25 MG PO DAILY Active Meds + DC'd Last 24 Hrs Lisinopril (ZESTRIL) 2.5 MG DAILY PO Metoprolol Succinate (TOPROL XL) 25 MG DAILY PO Diazepam (VALIUM) 2 MG ONCE IM (DC) Apixaban (ELIQUIS) 5 MG Q12HR PO Atorvastatin Calcium (LIPITOR) 40 MG BEDTIME PO Aspirin (ECOTRIN) 81 MG DAILY PO Citalopram Hydrobromide (CeleXA) 10 MG DAILY PO Finasteride (PROSCAR) 5 MG DAILY PO Ketoconazole (Nizoral 2% Shampoo 120 ML) 1 APPLI C DAILY TOPICAL Oxybutynin Chloride (DITROPAN) 5 MG BID PO Tamsulosin HCl (FLOMAX) 0.8 MG DAILY PO Albumin Human (OPTISON) 3 ML ONCE PRN IV Insulin Human Lispro (HUMALOG) S/SCALE LOW AC HS SUBQ Dextrose/Water (Dextrose 50% W SYRINGE) 50 ML DIR PRN IV (CKD) Docusate Sodium (COLACE) 100 MG Q12H PRN PRN PO Trazodone HCl (DESYREL) 150 MG BEDTIME PRN PO Physical Exam General appearance: alert, awake Mental Status Orientation: Yes: to time, to place, to person. No: to situat ion. Reflexes Plantar reflexes: Up: Right. Down: Left. Results Findings/Data: Laboratory Tests 06/01 06/01 05/31 05/31 1148 0748 2058 1638 Chemistry POC Glucose (70 - 110 mg/dL) 172 H 149 H 190 H 173 H Laboratory Tests 06/01 0908 Hematology WBC (3.5 - 11.0 K/mm3) 5.9 RBC (4.70 - 6.10 M/mm3) 3.93 L Hgb (12.3 - 15.9 G/DL) 9.4 L Hct (35.8 - 46.7 %) 29.8 L MCV (86.3 - 98.9 Fl) 75.8 L MCH (28.9 - 34.4 pg) 23.9 L MCHC (32.1 - 34.5 G/DL) 31.5 L RDW (11.5 - 14.5 SD) 16.6 H Plt Count (150 - 450 K/mm3) 159 MPV (7.0 - 9.6 fL) 10.30 H Neut % (Auto) (40 - 76 %) 67.8 Lymph % (Auto) (20.5 - 51.1 %) 13.6 L Centre % (Auto) (1.7 - 9.3 %) 10.9 H Eos % (Auto) (0.0 - 6.0 %) 6.3 H Baso % (Auto) (0.0 - 2.0 %) 0.7 Neut # (Auto) (1.8 - 7.6 K/mm3) 4.0 Lymph # (Auto) (0.6 - 3.0 K/mm3) 0.8 Centre # (Auto) (0.2 - 1.5 K/mm3) 0.6 Eos # (Auto) (0.0 - 0.4 K/mm3) 0.4 Baso # (Auto) (0.0 - 0.2 K/mm3) 0.0 Abs Immat Gran (auto) (0.00 - 0.03 x10 3/uL) 0. 04 H Add Manual Diff (CRITERIA DIFF/SCN) NO Immature Gran % (0.0 - 5.0 %) 0.7 Nucleated RBC % (0.0 - 1.0 /100WBC%) 0.0 Results: labs reviewed, vital signs reviewed, cu rrent med profile rev'd Diagnosis, Assessment Plan Free Text A P: 71 years old male who is being evaluated for alt ered mental status. CT of the brain - No evidence of acute pathology . Senescent changes. Left frontal encephalomalacia unchanged. CTA head and neck - Scattered atherosclerotic pl aque with mild less than 50% narrowing at the left carotid bifurcation. No other area o f significant stenosis. No intracranial large vessel occlusion. Hemoglobin A1c 6.0, LDL 43 Diagnoses: 1. Acute encephalopathy - etiology under investi gation on baseline dementia 2. History of chronic infarcts 3. Atrial fibrillation 4. Diabetes mellitus 5. Dementia 6. CAD 7. History of tobacco use 8. Generalized rash Plan: Telemetry. Reviewed CT of the brain. Reviewed CTA head and neck. MRI of the brain - pending. Echo - pending. Continue Aspirin, statin and Eliquis. PT/OT and speech evaluation. Supportive care. Neurology to follow. Thanks for the consult. 05/31 stable; no evidence for new stroke 06/01 review of MRI shows moderate to large area of encephalomalacia in Left superior fromtal area + what appears to be a meningioma j ust posterior to this. Concern is that of seizure with postictal co nfusion. Will add depakote and follow as outpatient in view of difficulty of obtaining EEG on the weekend. Electronically Signed by Ramsey Marrero MD 06/01/22 at 1914 RPT #: [id number] END OF REPORT 2022-06-01 09:47:00-00:00 [facility] ([facility]) Hospitalist Progress Note REPORT#:[id number] REPORT STATUS: Signed DATE:06/01/22 TIME:946 PATIENT: FRAN SANTAMARIA UNIT #: [id number] ROOM/BED: S210-1 : 50 AGE: 71 SEX: M ATTEND: Jacky Gutierrez MD ADM AUTHOR: Anneliese Eden MD * ALL edits or amendments must be made on the el [employer]/computer document * Subjective Chief complaint: stable HPI: 71-year-old male with PMHx o f massive CVA x5 (per patient), hypertension, atrial fibrillation, diabetes mellitus, coronary artery disease, status post stent placement presented to the ED for altered mental status. Of note, it was unclear when the patient was last seen at his [facility] baseline mental status. The staff at his nursing facility notice d that he had repetitive speech today. In the ED, his NIH score was reported as 0. Head CT and CTA no acute findings or significant stenosis. He was not a candidate for tPA or endovascular therapy due to the time of onset of his symptoms and because the patient is on Eliquis. EKG showed A-fib with HR 77. UA negative for UTI . Found elevated troponin. Vitals stable. Upon my evalu ation patient is alert, orientated x4, appearing his mentation back to at his baseline. He is a good historian. Denies dizziness, chest pain, shortness of suzanne ath, abdominal pain, or nausea vomiting. Patient is incontinence. Patient just wants to be changed. Noted involuntary jerking movement of the left upper extremity. Ashleigh gloria states he usually has low BP. BP nl during ED stay. He is admitted for further ev aluation and management. Objective Physical Exam General appearance: awake Head/Eyes: atraumatic, normal conjunctiva/sclera , normal eyelids/periorb., normocephalic, PERRL ENT: moist mucosal membranes Neck: full range of motion, normal thyroid, supp le/no meningismus, no JVD, no masses or swelling Cardiovascular: normal capillary refill, normal heart sounds, regular rate rhythm Respiratory: aerating well, clear to auscultatio n, symmetric expansion, no distress Abdomen: non-tender, normal bowel sounds, soft, no distention Genitourinary: urine, no flank pain Extremities: normal capillary refill, no cyanosi s, no edema Musculoskeletal: normal inspection Neuro/PRECISION LENS GENERATOR: right hemiparesis, alert, oriented X 3, normal speech, no sensory deficits Skin: normal color, normal temperature Lymphatics: neck normal, no lymphadenopathy Psychiatry: normal affect Results Findings/Data: Laboratory Tests 06/01 05/31 05/31 0748 2058 1638 Chemistry POC Glucose (70 - 110 mg/dL) 149 H 190 H 173 H Laboratory Tests 06/01 0908 Hematology WBC (3.5 - 11.0 K/mm3) 5.9 RBC (4.70 - 6.10 M/mm3) 3.93 L Hgb (12.3 - 15.9 G/DL) 9.4 L Hct (35.8 - 46.7 %) 29.8 L MCV (86.3 - 98.9 Fl) 75.8 L MCH (28.9 - 34.4 pg) 23.9 L MCHC (32.1 - 34.5 G/DL) 31.5 L RDW (11.5 - 14.5 SD) 16.6 H Plt Count (150 - 450 K/mm3) 159 MPV (7.0 - 9.6 fL) 10.30 H Neut % (Auto) (40 - 76 %) 67.8 Lymph % (Auto) (20.5 - 51.1 %) 13.6 L Centre % (Auto) (1.7 - 9.3 %) 10.9 H Eos % (Auto) (0.0 - 6.0 %) 6.3 H Baso % (Auto) (0.0 - 2.0 %) 0.7 Neut # (Auto) (1.8 - 7.6 K/mm3) 4.0 Lymph # (Auto) (0.6 - 3.0 K/mm3) 0.8 Centre # (Auto) (0.2 - 1.5 K/mm3) 0.6 Eos # (Auto) (0.0 - 0.4 K/mm3) 0.4 Baso # (Auto) (0.0 - 0.2 K/mm3) 0.0 Abs Immat Gran (auto) (0.00 - 0.03 x10 3/uL) 0. 04 H Add Manual Diff (CRITERIA DIFF/SCN) NO Immature Gran % (0.0 - 5.0 %) 0.7 Nucleated RBC % (0.0 - 1.0 /100WBC%) 0.0 Diagnosis, Assessment Plan Consultants: cardiology Free Text DxA P Notes Free text DxA P notes: 71 yo male with PMHX of multiple CVAx5, CAD, HTN , DM2 admitted for 1. Acute metabolic encephalopathy-Baseline demen tia-resolved and back to baseline, MRI brain shows no acute process appearing back to his baseline no obvious convincing metabolic or neurologic e tiology head CT/CTA no significant acute abnormality neuro check 2. Elevated troponin-type II NC trend troponin x3, EKG x3 Monitor on the telemetry pt is on Eliquis for A-fib 3. Hyponatremia unknown etiology Resolved with IVF, BS control, repeat bmp home med HCTZ 5. Atrial fibrillation continue Eliquis not on BB HR controlled 6. DM2 ACHS SSI VTE ppx: on Eliquis Full code Work-up negative, symptoms resolved, back to bas yair Discussed with Daughter and she's [facility] - Consult CM Electronically Signed by Anneliese Eden MD on 1 08/02/21 at 0949 RPT #: [id number] END OF REPORT 2022-06-01 08:41:00-00:00 [facility] ([facility]) Cardiology Progress Note REPORT#:[id number] REPORT STATUS: Signed DATE:06/01/22 TIME:0841 PATIENT: FRAN SANTAMARIA UNIT #: [id number] ROOM/BED: [place] [address] : 50 AGE: 71 SEX: M ATTEND: Jacky Gutierrez MD ADM AUTHOR: Sammie Johnson APRN * ALL edits or amendments must be made on the [employer]/computer document * Subjective Free Text Subj Notes Free Text Subj Notes: Cardiology progress note Date of service: 06/01/2022 Chief complaint/reason for consult: Elevated tro ponin Patient seen and examined, laquita valdes reviewed, questions/concerns addressed with RN. Current medication and vitals reviewed and liste d above HPI and interval Hx: NAD. No acute events report ed overnight. Remains in rate controlled A. fib. BP stable Admission HPI: 1 YO male chronically ill-looking male, appear confused, hx provided by MPOA. The patient has PMH of CVA, AF ib on Eliquis, CAD with prior PCI who presented to ED with abnormal speech. Initial Head imaging negative for acute IC finding. Troponin came back elevated an d cardiology consultation is requested. Troponin: 160.5->223.5. EKG showed at rial fibrillation with controlled rate, no acute ST/T wave changes. The patient denies chest pain or SOB. MPOA/sister Ayla Ace phone [phone]. Subjective: Denies any chest pain or shortness o f breath Objective: Vital Signs: Date Time Temp Pulse Resp B/P B/P Pulse O2 O2 F low FiO2 Mean Ox Delivery Rate 06/01 0749 98.1 63 18 110/60 76.6 96 06/01 0415 98.6 82 17 134/66 88.6 98 05/31 2343 97.5 68 17 135/57 82.7 98 Vital signs as above Physical examination: GEN: chronically ill appeari ng, frail, alert, awake, no acute distress, pleasant HEENT: NC/AT, EOMI CARD: iRRR, normal S1/S2,+ murmur LUNGS: CTA w/o added sounds, GBAE. ABD: Soft, nondistended, nontender. Intact BS EXT: No obvious deformities. No edema. Periphera l pulses intact NEURO: AOx2-3, decreased ROM SKIN: Warm and dry, no rashes/lesions. PSYCH: Appropriate mood and affect Laboratory Tests: 06/01 05/31 05/31 0748 2058 1638 Chemistry POC Glucose (70 - 110 mg/dL) 149 H 190 H 173 H Echocardiogram Result: Conclusions Summary: 1. Left ventricle: The cavity size is dilated. W all thickness is normal. Systolic function is mildly reduced. The estima ventura ejection fraction is 45-49%. 2. Right ventricle: The RV pressure during systo le by Doppler is 34 mm Hg. Prepared and electronically signed by Sarah Chavez MD 05/30/2022 17:35 PATIENT NAME: FRAN SANTAMARIA [id number] >>>>>>>>>>>>>>>>>>>>>>>>>&gt ;>>>>>> END OF PAGE <<<<<<<<<<<<<<<<<<<<<<<<<<<<<<<< Assessment, Impression and medical decision barbi ng. Plan/recommendation: EKG Interpretation: atrial fibrillation Diagnosis, Assessment Plan Free Text DxA P Notes Free Text DxA P Notes: 71 YO male chronically ill-looking male, appear confused, hx provided by [facility]. The patient has PMH of CVA, AFib on Eliquis, CAD with prior PCI who presented to ED with abnormal speech. Initial Head imaging negative for acute IC finding. Troponin came back elevated and cardiology consultation is requested. Troponin: 160.5->223.5. EKG showed atr ial fibrillation with controlled rate, no acute ST/ T wave changes. The patient denies chest pain or SOB. 1. Chronc atrial fibrillation - rate control continue metoprolol DC heparin gtt, resume Eliquis 5 mg BID echocardiogram LVEF 45-49%, no signficant valvul ar disease 2. Positive troponin - likely Type II NC Known CAD with prior stent leaning toward Type II NC in the setting of poss ible TIA or ?UTI Troponin: 160.5->223.5->100.1->61.6 DC heparin gtt, continue ASA 81 mg daily , atorvastatin 40 mg daily, metoprolol 25 mg BID echocardiogram LVEF 45-49% telemetry outpatient stresst test 3. Speech disturbance ? TIA, ?encephalopathy, ? Dementia neurology consulted 4. UA positive for bacteriuria manage per primary team 5. Hx of CVA 6. Hypertension continue low dose ACEI and BB 7. LV Systolic dysfunction LVEF 45-49% continue BB change to metoprolol succinate 25 mg daily, add lisinopril 2.5 mg daily Stop amlodipine CHARLIEA/sister Ayla Ace phone [phone]. No further cardiac workup. Outpatient follow-up with Dr. Chavez in 2 weeks. at 1232 06/01/2022 NAD. No acute events reported beatris cabral Remains in rate controlled A. fib. BP stable. -Continue metoprolol for rate control, lisinopril for additional BP control -Continue Eliquis/apixaban for embolic event pre vention -Continue with above recomme ndations: Cardiology clinic follow-up for outpatient stress test -Will follow Thank you for your consultat ion and allowing us to take the care of your patient please do not hesitate to contact us with any qu estions or concerns. Sammie Johnson [facility] PROFESSIONAL Dr. Sarah Chavez MD-Attending Motor Equipment Commanding Officer [facility] Cardiology at 1120 Electronically Signed by Sarah Chavez MD on at 1821 RPT #: [id number] END OF REPORT 2022-05-31 15:33:00-00:00 [facility] Neurology Progress Note REPORT#:[id number] REPORT STATUS: Signed DATE:05/31/22 TIME:1533 PATIENT: FRAN SANTAMARIA UNIT #: [id number] ROOM/BED: [place] [address] : 50 AGE: 71 SEX: M ATTEND: Jacky Gutierrez MD ADM AUTHOR: Ramsey Marrero MD * ALL edits or amendments must be made on the [employer]/computer document * Subjective Patient reports: Yes: feeling better. Objective General VS: Last Documented: Result Date Time Pulse Ox 97 05/31 1201 B/P 107/62 05/31 1201 B/P Mean 76.7 05/31 1201 O2 Delivery Room air 05/31 1201 Temp 36.3 05/31 1201 Pulse 63 05/31 120 Resp 16 05/31 1201 PATIENT WEIGHT: Weight (lb): Weight (oz): Weight (kg): 71.400 Medications Current Home Medications CITALOPRAM (CeleXA) 10 MG PO DAILY HYDROCHLOROTHIAZIDE (HCTZ) 12.5 MG PO DAILY SAXAGLIPTIN (ONGLYZA) 5 MG PO DAILY ASCORBIC ACID (VITAMIN C) 500 MG PO DAILY ATORVASTATIN (LIPITOR) 40 MG PO BEDTIME FINASTERIDE (PROSCAR) TAMSULOSIN ER (FLOMAX) 0.8 MG PO DAILY APIXABAN (ELIQUIS) 5 MG PO BID metFORMIN (GLUCOPHAGE) 850 MG PO TID traZODone (DESYREL) 150 MG PO BEDTIME OXYBUTYNIN (DITROPAN) 5 MG PO BID KETOCONAZOLE (NIZORAL 2%) 1 APPLIC TOPICAL MOWEF R KETOCONAZOLE (NIZORAL 2%) 1 APPLIC TOPICAL DAILY traZODone (DESYREL) 150 MG PO BEDTIME PRN INSOMN IA OMEGA-3 FATTY ACIDS (FISH OIL) 1,000 MG PO DAILY DOCUSATE SODIUM (COLACE) 100 MG PO Q12H PRN PRN CONSTIPATION FLUTICASONE PROPIONATE (FLONASE 50 MCG/ACT NASAL ) 1 SPRAY NASAL BID FAMOTIDINE (PEPCID) 20 MG PO BID METOPROLOL SUCC XL (TOPROL XL) 25 MG PO DAILY Active Meds + DC'd Last 24 Hrs Lisinopril (ZESTRIL) 2.5 MG DAILY PO Metoprolol Succinate (TOPROL XL) 25 MG DAILY PO Apixaban (ELIQUIS) 5 MG Q12HR PO Haloperidol Lactate (HALDOL) 2 MG ONCE IV (DC) Atorvastatin Calcium (LIPITOR) 40 MG BEDTIME PO Heparin Sodium (Porcine) (HEPARIN SODIUM) LOOK AT NOTE BASED ON WEIGHT OF 71.4 K UNITS/KG = 5,000 UNITS (MAX REBOLUS) 40 UNITS/KG = 2,856 UNITS ASDIR PRN IV (DC) Metoprolol Tartrate (LOPRESSOR) 25 MG Q12HR PO ( DC) Aspirin (ECOTRIN) 81 MG DAILY PO Amlodipine Besylate (NORVASC) 10 MG DAILY PO (DC ) Citalopram Hydrobromide (CeleXA) 10 MG DAILY PO Finasteride (PROSCAR) 5 MG DAILY PO Ketoconazole (Nizoral 2% Shampoo 120 ML) 1 APPLI C DAILY TOPICAL Oxybutynin Chloride (DITROPAN) 5 MG BID PO Tamsulosin HCl (FLOMAX) 0.8 MG DAILY PO Albumin Human (OPTISON) 3 ML ONCE PRN IV Insulin Human Lispro (HUMALOG) S/SCALE LOW AC HS SUBQ Heparin Sodium/Dextrose (Heparin 25,000 Unit/500 ML D5W) 500 ML ASDIR IV (DC) Dextrose/Water (Dextrose 50% W SYRINGE) 50 ML DIR PRN IV (CKD) Docusate Sodium (COLACE) 100 MG Q12H PRN PRN PO Trazodone HCl (DESYREL) 150 MG BEDTIME PRN PO Sodium Chloride (0.9% Sodium Chloride) 1,000 ML .Q10H IV (DC) Physical Exam General appearance: alert, awake Mental Status Orientation: Yes: to time, to place. No: to person, to situat ion. Reflexes Plantar reflexes: Up: Right. Down: Left. Results Findings/Data: Laboratory Tests 05/31 05/30 05/30 0430 1730 1635 Chemistry POC Glucose (70 - 110 mg/dL) 188 H Troponin I High Sens (0 - 54 ng/L) 61.6 H 100.1 H Laboratory Tests 05/31 05/30 05/30 0701 2239 2239 Coagulation INR (0.8 - 1.2 INR Unit) 1.12 PTT (Howard) (26 - 35 SECONDS) 84.9 H 37.0 H PT Patient/Control Mix (9.3 - 12.9 SECONDS) 12. 8 Laboratory Tests 05/31 0430 Hematology WBC (3.5 - 11.0 K/mm3) 5.9 RBC (4.70 - 6.10 M/mm3) 3.35 L Hgb (12.3 - 15.9 G/DL) 8.1 L Hct (35.8 - 46.7 %) 26.1 L MCV (86.3 - 98.9 Fl) 77.9 L MCH (28.9 - 34.4 pg) 24.2 L MCHC (32.1 - 34.5 G/DL) 31.0 L RDW (11.5 - 14.5 SD) 16.4 H Plt Count (150 - 450 K/mm3) 165 MPV (7.0 - 9.6 fL) 10.20 H Neut % (Auto) (40 - 76 %) 67.6 Lymph % (Auto) (20.5 - 51.1 %) 14.4 L Centre % (Auto) (1.7 - 9.3 %) 9.1 Eos % (Auto) (0.0 - 6.0 %) 7.1 H Baso % (Auto) (0.0 - 2.0 %) 0.8 Neut # (Auto) (1.8 - 7.6 K/mm3) 4.0 Lymph # (Auto) (0.6 - 3.0 K/mm3) 0.9 Centre # (Auto) (0.2 - 1.5 K/mm3) 0.5 Eos # (Auto) (0.0 - 0.4 K/mm3) 0.4 Baso # (Auto) (0.0 - 0.2 K/mm3) 0.1 Abs Immat Gran (auto) (0.00 - 0.03 x10 3/uL) 0. 06 H Add Manual Diff (CRITERIA DIFF/SCN) NO Immature Gran % (0.0 - 5.0 %) 1.0 Nucleated RBC % (0.0 - 1.0 /100WBC%) 0.0 Results: labs reviewed, vital signs reviewed, cu rrent med profile rev'd Diagnosis, Assessment Plan Free Text A P: 71 years old male who is being evaluated for alt ered mental status. CT of the brain - No evidence of acute pathology . Senescent changes. Left frontal encephalomalacia unchanged. CTA head and neck - Scattered atherosclerotic pl aque with mild less than 50% narrowing at the left carotid bifurcation. No other area o f significant stenosis. No intracranial large vessel occlusion. Hemoglobin A1c 6.0, LDL 43 Diagnoses: 1. Acute encephalopathy - etiology under investi gation on baseline dementia 2. History of chronic infarcts 3. Atrial fibrillation 4. Diabetes mellitus 5. Dementia 6. CAD 7. History of tobacco use 8. Generalized rash Plan: Telemetry. Reviewed CT of the brain. Reviewed CTA head and neck. MRI of the brain - pending. Echo - pending. Continue Aspirin, statin and Eliquis. PT/OT and speech evaluation. Supportive care. Neurology to follow. Thanks for the consult. 05/31 stable; no evidence for new stroke Electronically Signed by Ramsey Marrero MD n 05/31/22 at 1744 RPT #: [id number] END OF REPORT 2022-05-31 14:55:00-00:00 [facility] ([facility]) Hospitalist Progress Note REPORT#:[id number] REPORT STATUS: Signed DATE:05/31/22 TIME:1455 PATIENT: FRAN SANTAMARIA UNIT #: [id number] ROOM/BED: [facility]-1 : 50 AGE: 71 SEX: M ATTEND: Jacky Gutierrez MD ADM AUTHOR: Anneliese Eden MD * ALL edits or amendments must be made on the el [employer]/computer document * Subjective Chief complaint: stable HPI: 71-year-old male with PMHx o f massive CVA x5 (per patient), hypertension, atrial fibrillation, diabetes mellitus, coronary artery disease, status post stent placement presented to the ED for altered mental status. Of note, it was unclear when the patient was last seen at his [facility] baseline mental status. The staff at his nursing facility notice d that he had repetitive speech today. In the ED, his NIH score was reported as 0. Head CT and CTA no acute findings or significant stenosis. He was not a candidate for tPA or endovascular therapy due to the time of onset of his symptoms and because the patient is on Eliquis. EKG showed A-fib with HR 77. UA negative for UTI . Found elevated troponin. Vitals stable. Upon my evalu ation patient is alert, orientated x4, appearing his mentation back to at his baseline. He is a good historian. Denies dizziness, chest pain, shortness of suzanne ath, abdominal pain, or nausea vomiting. Patient is incontinence. Patient just wants to be changed. Noted involuntary jerking movement of the left upper extremity. Ashleigh gloria states he usually has low BP. BP nl during ED stay. He is admitted for further ev aluation and management. Objective General VS/I O: Vital Signs: Date Time Temp Pulse Resp B/P B/P Pulse O2 O2 F low FiO2 Mean Ox Delivery Rate 05/31 1201 97.3 63 16 107/62 76.7 97 Room air 05/31 07 98.2 58 15 101/52 68.1 97 Room air 05/30 1945 97.9 86 16 155/73 100.6 97 05/30 1651 97.9 82 15 133/82 99 100 Room air 24 hour I O ending at 0700: 05/31 0700 05/30 1900 Intake Total 1080.00 Output Total Balance 1080.00 Intake, IV 180.00 Intake, Oral 900 Number 1 Bowel Movements Number 4 Incontinent Voids PATIENT WEIGHT: Weight (lb): Weight (oz): Weight (kg): 71.400 Physical Exam General appearance: awake Head/Eyes: atraumatic, normal conjunctiva/sclera , normal eyelids/periorb., normocephalic, PERRL ENT: moist mucosal membranes Neck: full range of motion, normal thyroid, supp le/no meningismus, no JVD, no masses or swelling Cardiovascular: normal capillary refill, normal heart sounds, regular rate rhythm Respiratory: aerating well, clear to auscultatio n, symmetric expansion, no distress Abdomen: non-tender, normal bowel sounds, soft, no distention Genitourinary: urine, no flank pain Extremities: normal capillary refill, no cyanosi s, no edema Musculoskeletal: normal inspection Neuro/PRECISION LENS GENERATOR: right hemiparesis, alert, oriented X 3, normal speech, no sensory deficits Skin: normal color, normal temperature Lymphatics: neck normal, no lymphadenopathy Psychiatry: normal affect Results Findings/Data: Laboratory Tests 05/31 05/30 05/30 0430 1730 1635 Chemistry POC Glucose (70 - 110 mg/dL) 188 H Troponin I High Sens (0 - 54 ng/L) 61.6 H 100.1 H Laboratory Tests 05/31 05/30 05/30 0701 2239 2239 Coagulation INR (0.8 - 1.2 INR Unit) 1.12 PTT (Howard) (26 - 35 SECONDS) 84.9 H 37.0 H PT Patient/Control Mix (9.3 - 12.9 SECONDS) 12. 8 Laboratory Tests 05/31 043 Hematology WBC (3.5 - 11.0 K/mm3) 5.9 RBC (4.70 - 6.10 M/mm3) 3.35 L Hgb (12.3 - 15.9 G/DL) 8.1 L Hct (35.8 - 46.7 %) 26.1 L MCV (86.3 - 98.9 Fl) 77.9 L MCH (28.9 - 34.4 pg) 24.2 L MCHC (32.1 - 34.5 G/DL) 31.0 L RDW (11.5 - 14.5 SD) 16.4 H Plt Count (150 - 450 K/mm3) 165 MPV (7.0 - 9.6 fL) 10.20 H Neut % (Auto) (40 - 76 %) 67.6 Lymph % (Auto) (20.5 - 51.1 %) 14.4 L Centre % (Auto) (1.7 - 9.3 %) 9.1 Eos % (Auto) (0.0 - 6.0 %) 7.1 H Baso % (Auto) (0.0 - 2.0 %) 0.8 Neut # (Auto) (1.8 - 7.6 K/mm3) 4.0 Lymph # (Auto) (0.6 - 3.0 K/mm3) 0.9 Centre # (Auto) (0.2 - 1.5 K/mm3) 0.5 Eos # (Auto) (0.0 - 0.4 K/mm3) 0.4 Baso # (Auto) (0.0 - 0.2 K/mm3) 0.1 Abs Immat Gran (auto) (0.00 - 0.03 x10 3/uL) 0. 06 H Add Manual Diff (CRITERIA DIFF/SCN) NO Immature Gran % (0.0 - 5.0 %) 1.0 Nucleated RBC % (0.0 - 1.0 /100WBC%) 0.0 Diagnosis, Assessment Plan Consultants: cardiology Free Text DxA P Notes Free text DxA P notes: 71 yo male with PMHX of multiple CVAx5, CAD, HTN , DM2 admitted for 1. Acute metabolic encephalopathy-Baseline demen tia-resolved and back to baseline, MRI brain shows no acute process appearing back to his baseline no obvious convincing metabolic or neurologic e tiology head CT/CTA no significant acute abnormality neuro check 2. Elevated troponin-type II NC trend troponin x3, EKG x3 Monitor on the telemetry pt is on Eliquis for A-fib 3. Hyponatremia unknown etiology Resolved with IVF, BS control, repeat bmp home med HCTZ 5. Atrial fibrillation continue Eliquis not on BB HR controlled 6. DM2 ACHS SSI VTE ppx: on Eliquis Full code Work-up negative, symptoms resolved, back to [facility] y[facility] Discussed with Daughter and [facility]s [facility] RPT #: [id number] END OF REPORT 2022-05-31 10:46:00-00:00 [facility] ([facility]) Discharge Summary REPORT#:[id number] REPORT STATUS: Signed DATE:05/31/22 TIME:1045 PATIENT: FRAN SANTAMARIA UNIT #: [id number] ROOM/BED: S218-1 : 50 AGE: 71 SEX: M ATTEND: Jacky Gutierrez MD ADM AUTHOR: Anneliese Eden MD * ALL edits or amendments must be made on the [employer] document * See Addendum General Information Date of admission: Observation Start Date: Date of admission: 05/30/22 Discharge date: 05/31/22 Discharge diagnosis: 71 yo male with PMHX of multiple CVAx5, CAD, HTN , DM2 admitted for 1. Acute metabolic encephalopathy-Baseline demen tia-resolved and back to baseline, MRI brain shows no acute process appearing back to his baseline no obvious convincing metabolic or neurologic e tiology head CT/CTA no significant acute abnormality neuro check 2. Elevated troponin-type II NC trend troponin x3, EKG x3 Monitor on the telemetry pt is on Eliquis for A-fib 3. Hyponatremia unknown etiology Resolved with IVF, BS control, repeat bmp home med HCTZ 5. Atrial fibrillation continue Eliquis not on BB HR controlled 6. DM2 ACHS SSI VTE ppx: on Eliquis Full code Work-up negative, symptoms resolved, back to [facility], [facility] [place] with home health Hospital course: 71 yo male with PMHX of multiple CVAx5, CAD, HTN , DM2 admitted for 1. Acute metabolic encephalopathy-Baseline demen tia-resolved and back to baseline, MRI brain shows no acute process appearing back to his baseline no obvious convincing metabolic or neurologic e tiology head CT/CTA no significant acute abnormality neuro check 2. Elevated troponin-type II NC trend troponin x3, EKG x3 Monitor on the telemetry pt is on Eliquis for A-fib 3. Hyponatremia unknown etiology Resolved with IVF, BS control, repeat bmp home med HCTZ 5. Atrial fibrillation continue Eliquis not on BB HR controlled 6. DM2 ACHS SSI VTE ppx: on Eliquis Full code Work-up negative, symptoms resolved, back to [facility], will [place] home with home health Consultants: cardiology Pt. condition on discharge: improved, stable Med Rec Med Rec Discharge meds: Stop taking the following medications: amLODIPine (NORVASC) 10 MG TAB 10 MILLIGRAM ORAL DAILY. Continue taking these medications: CITALOPRAM (CeleXA) 10 MG TAB 10 MILLIGRAM ORAL DAILY. HYDROCHLOROTHIAZIDE (HCTZ) 12.5 MG CAP 12.5 MILLIGRAM ORAL DAILY. SAXAGLIPTIN (ONGLYZA) 5 MG TAB 5 MILLIGRAM ORAL DAILY. ASCORBIC ACID (VITAMIN C) 500 MG TAB 500 MILLIGRAM ORAL DAILY. ATORVASTATIN (LIPITOR) 40 MG TAB 40 MILLIGRAM ORAL BEDTIME. FINASTERIDE (PROSCAR) 5 MG TAB TAMSULOSIN ER (FLOMAX) 0.4 MG CAP.SR.24H 0.8 MILLIGRAM ORAL DAILY. APIXABAN (ELIQUIS) 5 MG TAB 5 MILLIGRAM ORAL TWICE DAILY. metFORMIN (GLUCOPHAGE) 850 MG TAB 850 MILLIGRAM ORAL THREE TIMES A DAY. traZODone (DESYREL) 150 MG TAB 150 MILLIGRAM ORAL BEDTIME. OXYBUTYNIN (DITROPAN) 5 MG TAB 5 MILLIGRAM ORAL TWICE DAILY. KETOCONAZOLE (NIZORAL 2%) 120 ML SHAMPOO 1 APPLIC TOPICAL SATURDAY, SATURDAY, SATURDAY. KETOCONAZOLE (NIZORAL 2%) 75 GM CREAM 1 APPLIC TOPICAL DAILY. traZODone (DESYREL) 150 MG TAB 150 MILLIGRAM ORAL BEDTIME. as needed for INSOM VALERIA OMEGA-3 FATTY ACIDS (FISH OIL) 1,000 MG CAP 1,000 MILLIGRAM ORAL DAILY. FLUTICASONE PROPIONATE (FLONASE 50 MCG/ACT NASAL ) 16 GM SPRAY 1 SPRAY NASAL TWICE DAILY. Days = 30 DOCUSATE SODIUM (COLACE) 100 MG CAP 100 MILLIGRAM ORAL EVERY 12 HR NEEDED. as ne eded for CONSTIPATION Days = 30 FAMOTIDINE (PEPCID) 20 MG TAB 20 MILLIGRAM ORAL TWICE DAILY. Days = 30 Start taking the following new medications: METOPROLOL SUCC XL (TOPROL XL) 25 MG TAB.SR.24H 25 MILLIGRAM ORAL DAILY. Qty = 30 No Refills Objective VS/I O Last Documented: Result Date Time Pulse Ox 97 05/31 723 B/P 101/52 05/31 723 B/P Mean 68.1 05/31 723 O2 Delivery Room air 05/31 723 Temp 98.2 05/31 723 Pulse 58 05/31 723 Resp 15 05/31 723 24 hour I O ending at 0700: 05/31 0700 05/30 1900 Intake Total 1080.00 Output Total Balance 1080.00 Intake, IV 180.00 Intake, Oral 900 Number 1 Bowel Movements Number 4 Incontinent Voids PATIENT WEIGHT: Weight (lb): Weight (oz): Weight (kg): 71.400 General appearance: awake ENT: normal nose Cardiovascular: normal heart sounds GI: soft Musculoskeletal: full range of motion Neuro/PRECISION LENS GENERATOR: alert, no motor deficits Discharge Instructions PCP PCP: PCP: No Primary or Family Physician )( Discharge to: Home/Self Care Discharge Instructions Additional Discharge Routines: PCP Follow-Up )( Diet: Regular )( Activity: As Tolerated Prescriptions: on chart Discharge management: greater than 30 mins Follow-up Appointments PCP follow up: PCP: No Primary or Family Physician PCP follow up timeframe: In 1-2 weeks Electronically Signed by Anneliese Eden MD on 1 08/01/21 at 1049 Addendum 1: 06/09/22 1238 by Anneliese Eden MD Patient is going to personal fdc, stable condition, total time 32 minutes at 1238 Addendum 2: 06/11/22 1109 by Anneliese Eden MD Patient is stable to be discharged today at 1109 RPT #: [id number] END OF REPORT 2022-05-31 09:04:00-00:00 [facility] ([facility]) Cardiology Progress Note REPORT#:[id number] REPORT STATUS: Signed DATE:05/31/22 TIME:903 PATIENT: FRAN SANTAMARIA UNIT #: [id number] ROOM/BED: [facility]-1 : 50 AGE: 71 SEX: M ATTEND: Jacky Gutierrez MD ADM AUTHOR: Sheree Junior LETTUCE TRIMMER * ALL edits or amendments must be made on the [employer]/computer document * Subjective Chief complaint: confused, not in any distress Objective General VS/I O: 24 hour I O ending at 0700: 05/31 0700 05/30 1900 Intake Total 1080.00 Output Total Balance 1080.00 Intake, IV 180.00 Intake, Oral 900 Number 1 Bowel Movements Number 4 Incontinent Voids Vital Signs: Date Time Temp Pulse Resp B/P B/P Pulse O2 O2 F low FiO2 Mean Ox Delivery Rate 05/31 723 36.8 58 15 101/52 68.1 97 Room air 05/30 1945 36.6 86 16 155/73 100.6 97 05/30 1651 36.6 82 15 133/82 99 100 Room air 05/30 1220 36.4 84 16 115/88 97 100 Room air PATIENT WEIGHT: Weight (lb): Weight (oz): Weight (kg): 71.400 Medications: Active Meds + DC'd Last 24 Hrs Haloperidol Lactate (HALDOL) 2 MG ONCE IV (DC) Atorvastatin Calcium (LIPITOR) 40 MG BEDTIME PO Metoprolol Tartrate (LOPRESSOR) 25 MG Q12HR PO Aspirin (ECOTRIN) 81 MG DAILY PO Amlodipine Besylate (NORVASC) 10 MG DAILY PO Citalopram Hydrobromide (CeleXA) 10 MG DAILY PO Finasteride (PROSCAR) 5 MG DAILY PO Ketoconazole (Nizoral 2% Shampoo 120 ML) 1 APPLI C DAILY TOPICAL Oxybutynin Chloride (DITROPAN) 5 MG BID PO Tamsulosin HCl (FLOMAX) 0.8 MG DAILY PO Albumin Human (OPTISON) 3 ML ONCE PRN IV Insulin Human Lispro (HUMALOG) S/SCALE LOW AC HS SUBQ Heparin Sodium/Dextrose (Heparin 25,000 Unit/500 ML D5W) 500 ML ASDIR IV (CKD) Dextrose/Water (Dextrose 50% W SYRINGE) 50 ML DIR PRN IV (CKD) Docusate Sodium (COLACE) 100 MG Q12H PRN PRN PO Trazodone HCl (DESYREL) 150 MG BEDTIME PRN PO Sodium Chloride (0.9% Sodium Chloride) 1,000 ML .Q10H IV Physical Exam General appearance: chronically ill appearing, f rail, alert, awake, no acute distress, pleasant Neck: non-tender, no JVD Cardiovascular: CV assessment: irregularly irregular Murmur assessment: heart murmur Respiratory: decreased breath sounds, no distres s Abdomen: soft, non-tender, normal bowel sounds, no distention Genitourinary: no flank pain, no urinary cathete r Lower extremity: LE assessment: no calf tenderness, no edema Musculoskeletal: decreased ROM Neuro/PRECISION LENS GENERATOR: alert (confused) Skin: poor skin turgor Psychiatry: abnl judgment/insight, normal mood Results Findings/Data: Laboratory Tests 05/31 05/30 05/30 05/30 0430 1730 1635 1155 Chemistry POC Glucose (70 - 110 mg/dL) 188 H 103 Troponin I High Sens (0 - 54 ng/L) 61.6 H 100.1 H Laboratory Tests 05/31 05/30 05/30 05/30 0701 2239 2239 1255 Coagulation INR (0.8 - 1.2 INR Unit) 1.12 PTT (Howard) (26 - 35 SECONDS) 84.9 H 37.0 H 79.4 H PT Patient/Control Mix (9.3 - 12.9 SECONDS) 12. 8 Laboratory Tests 05/31 0430 Hematology WBC (3.5 - 11.0 K/mm3) 5.9 RBC (4.70 - 6.10 M/mm3) 3.35 L Hgb (12.3 - 15.9 G/DL) 8.1 L Hct (35.8 - 46.7 %) 26.1 L MCV (86.3 - 98.9 Fl) 77.9 L MCH (28.9 - 34.4 pg) 24.2 L MCHC (32.1 - 34.5 G/DL) 31.0 L RDW (11.5 - 14.5 SD) 16.4 H Plt Count (150 - 450 K/mm3) 165 MPV (7.0 - 9.6 fL) 10.20 H Neut % (Auto) (40 - 76 %) 67.6 Lymph % (Auto) (20.5 - 51.1 %) 14.4 L Centre % (Auto) (1.7 - 9.3 %) 9.1 Eos % (Auto) (0.0 - 6.0 %) 7.1 H Baso % (Auto) (0.0 - 2.0 %) 0.8 Neut # (Auto) (1.8 - 7.6 K/mm3) 4.0 Lymph # (Auto) (0.6 - 3.0 K/mm3) 0.9 Centre # (Auto) (0.2 - 1.5 K/mm3) 0.5 Eos # (Auto) (0.0 - 0.4 K/mm3) 0.4 Baso # (Auto) (0.0 - 0.2 K/mm3) 0.1 Abs Immat Gran (auto) (0.00 - 0.03 x10 3/uL) 0. 06 H Add Manual Diff (CRITERIA DIFF/SCN) NO Immature Gran % (0.0 - 5.0 %) 1.0 Nucleated RBC % (0.0 - 1.0 /100WBC%) 0.0 Radiology data: Recent Impressions: MAGNETIC RESONANCE IMAGING - MRI BRAIN W/O CONTR AST 05/30 1405 Report Impression - Status: SIGNED Entered: 05/30/2022 1525 IMPRESSION: No evidence of acute infarct or hemorrhage. Mode rate cerebral volume loss. Left frontoparietal convexity meningioma again n oted. 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 Impression By: [email or web address] - Jun Vincent D.O. Results: labs reviewed Telemetry Interpretation: afib with controlled rate Echo results: Summary: 1. Left ventricle: The cavity size is dilated. W all thickness is normal. Systolic function is mildly reduced. The estima ventura ejection fraction is 45-49%. 2. Right ventricle: The RV pressure during systo le by Doppler is 34 mm Hg. Diagnosis, Assessment Plan Free Text DxA P Notes Free Text DxA P Notes: 71 YO male chronically ill-looking male, appear confused, hx provided by [facility]. The patient has PMH of CVA, AFib on Eliquis, CAD with prior PCI who presented to ED with abnormal speech. Initial Head imaging negative for acute IC finding. Troponin came back elevated and cardiology consultation is requested. Troponin: 160.5->223.5. EKG showed atr ial fibrillation with controlled rate, no acute ST/ T wave changes. The patient denies chest pain or SOB. 1. Chronc atrial fibrillation - rate control continue metoprolol DC heparin gtt, resume Eliquis 5 mg BID echocardiogram LVEF 45-49%, no signficant valvul ar disease 2. Positive troponin - likely Type II NC Known CAD with prior stent leaning toward Type II NC in the setting of poss ible TIA or ?UTI Troponin: 160.5->223.5->100.1->61.6 DC heparin gtt, continue ASA 81 mg daily , atorvastatin 40 mg daily, metoprolol 25 mg BID echocardiogram LVEF 45-49% telemetry outpatient stresst test 3. Speech disturbance ? TIA, ?encephalopathy, ? Dementia neurology consulted 4. UA positive for bacteriuria manage per primary team 5. Hx of CVA 6. Hypertension continue low dose ACEI and BB 7. LV Systolic dysfunction LVEF 45-49% continue BB change to metoprolol succinate 25 mg daily, add lisinopril 2.5 mg daily Stop amlodipine MPOA/sister Ayla Ace phone [phone]. No further cardiac workup. Outpatient follow-up with Dr. Chavez in 2 weeks. at 1232 Electronically Signed by Sarah Chavez MD on at 0757 RPT #: [id number] END OF REPORT 2022-05-30 17:35:00-00:00 [id number] [facility] [id number] [place] [id number] PATIENT NAME: FRAN SANTAMARIA ADMIT DATE: 05/30 ACCOUNT NO: [id number] ROOM NO: [facility] AGE: 71 REPORT TYPE: eECHOCARDIOGRAM REPORT SEX: M ADMITTING PHYSICIAN: Cheikh Gutierrez MD ATTENDING PHYSICIAN: Cheikh Gutierrez MD *[facility]* [id number] [place] [id number] Transthoracic Echocardiogram Patient: Fran Santamaria Study Date: 05/30/2022 BP: 131 / 85 Location: [facility] URN: [id number] : 1950 Age: 71 Height: 74 in / 188 cm Gender: M Weight: 73 lb / 33.2 kg BMI/BSA: 9.4 kg/m 2 / 1.27 m 2 *Ordering Physician: * Eddi Hoff *Interpreting Physician: * Sarah Chavez MD *Promotions Intern: * Alice Slaughter Indications: NSTEMI. Study data: Transthoracic echocardiogram. Proced ure: Transthoracic echocardiography was performed. Image quality wa s adequate. Complete 2D, complete spectral Doppler, and color Doppler . Location: Emergency department. Patient status: Inpatient. Patient r oom number: [id number]. Study status: Routine. Findings Left ventricle: The cavity size is dilated. Wall thickness is normal. Systolic function is mildly reduced. The estimat ed ejection fraction is 45-49%. Right ventricle: The cavity size is normal. Left atrium: The atrium is normal in size. Right atrium: The atrium is normal in size. Aorta: Aortic root: The aortic root is not visua lized. PATIENT NAME: FRAN SANTAMARIA [id number] Aortic valve: The valve is structurally normal. The valve is trileaflet. There is no evidence of stenosis. Th ere is no regurgitation. Mitral valve: The valve is structurally normal. There is trivial regurgitation. Tricuspid valve: The valve is structurally vicente l. There is mild regurgitation. Pulmonic valve: The valve is structurally normal . There is no regurgitation. Pericardium: There is no pericardial effusion. Pulmonary arteries: The main pulmonary artery is normal-sized. Systemic veins: Inferior vena cava: The vessel is normal in size . Measurements Left ventricle Value Ref MONA, LAX 4.8 cm 4.2 - 5.8 ESD, LAX 3.9 cm 2.5 - 4.0 ESD/bsa, LAX 3.1 cm/m 2 1.3 - 2.1 FS, LAX 19 % 25 - 43 PW, ED 0.9 cm 0.6 - 1.0 IVS/PW, ED 1 --------- EF 39 % 52 - 72 IVRT 77 ms --------- LVOT Value Ref Diam, S 2.20 cm --------- Area 3.8 cm 2 --------- Peak ning, S 1.17 m/sec --------- Mean ning, S 0.91 m/sec --------- VTI, S 18.0 cm --------- Peak grad, S 5 mm Hg --------- Mean grad, S 3 mm Hg --------- SV 69 ml --------- SV/bsa 54 ml/m 2 --------- Ventricular septum Value Ref IVS, ED 0.9 cm 0.6 - 1.0 Right ventricle Value Ref TAPSE, MM 1.7 cm 1.7 - 3.1 Pressure, S 34 mm Hg --------- Left atrium Value Ref Vol/bsa, ES, 1-p A4C 45 ml/m 2 12 - 37 Vol/bsa, ES, A/L 47 ml/m 2 16 - 34 AP dim, ES MM 3.6 cm 3.0 - 4.0 LA/Ao root ratio, MM 1.26 --------- Aortic valve Value Ref Leaflet sep, MM 1.71 cm --------- PATIENT NAME: FRAN SANTAMARIA [id number] Peak v, S 1.35 m/sec --------- Mean v, S 1.01 m/sec --------- VTI, S 21.1 cm --------- Mean grad, S 4.4 mm Hg --------- Peak grad, S 7.3 mm Hg --------- LVOT/AV, VTI ratio 0.85 --------- SHANICE, VTI 3.25 cm 2 --------- LVOT/AV, Vpeak ratio 0.87 --------- SHANICE, Vmax 3.42 cm 2 --------- Mitral valve Value Ref Peak E 0.65 m/sec --------- Peak A 0.2 m/sec --------- Decel time 162 ms --------- PHT 42 ms --------- Peak E/A ratio 3.25 --------- MVA, PHT 5.2 cm 2 --------- Tricuspid valve Value Ref TR peak v 2.68 m/sec <=2.8 Peak RV-RA grad, S 29 mm Hg --------- Aortic root Value Ref Root diam, ED MM 2.89 cm --------- Pulmonary artery Value Ref Pressure, S 29.6 mm Hg --------- Systemic veins Value Ref Estimated CVP 5 mm Hg --------- Pulmonary veins Value Ref A rev duration 111 ms --------- Conclusions Summary: 1. Left ventricle: The cavity size is dilated. W all thickness is normal. Systolic function is mildly reduced. The marguerite whitehead ejection fraction is 45-49%. 2. Right ventricle: The RV pressure during systo le by Doppler is 34 mm Hg. Prepared and electronically signed by Sarah Chavez MD 05/30/2022 17:35 PATIENT NAME: FRAN SANTAMARIA [id number] at 1735 PATIENT NAME: FRAN SANTAMARIA [id number] 2022-05-30 12:01:00-00:00 [facility] ([facility]) Neurology Consultation Note REPORT#:[id number] REPORT STATUS: Signed DATE:05/30/22 TIME:1201 PATIENT: FRAN SANTAMARIA UNIT #: [id number] ROOM/BED: [place] [id number] : 50 AGE: 71 SEX: M ATTEND: Jacky Gutierrez MD ADM AUTHOR: Va Carroll * ALL edits or amendments must be made on the [employer]/computer document * Va Carroll 05/30/22 1201: History of Present Illness HPI Reason for consult: altered mental status HPI: He is a 71-year-old male wit h past left-handed male with past medical history of hypertension, diabetes melli tus, CAD s/p stents, atrial fibrillation on Eliquis, history of multiple strokes with residual right- sided weakness, baseline gait impairment who was transferr ed from an assisted living facility to the hospital due to altered mental status . Patient is accompanied by his assistance brother- in-law. Reportedly sister stated she noticed a c hange in him a week ago. He was behaving more confused, became more incontinent and this progressively got worse and she decided to bring him to [facility] emergency room. Patient is alert and oriented x2-3. Denies any he adaches, dizziness, vision changes, numbness or any hallucinations. Patient quit smoking 25 years ag o. Denies any history of alcohol use. Patient reports that has no t been sleeping well at night. Patient 's sister reports baseline memory impairment has been progressively getting worse. He is to follow-up with neurologsha berg at the [facility]. He has not been seen by the neurologist luke tran in a few years. Patient reports that the last time he waled was 6 [id number]. History - Adult longitudinal Past medical history: Reports: Atrial fibrillation, Coronary artery di sease, Hypertension, Ischemic stroke. Additional medical history: CVA, hypertension, atrial fibrillation, diabetes mellitus, coronary artery disease Past surgical history: Reports: PCI. Family history: Reports: Diabetes. 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 Denies: dizziness, lighth eaded, numbness, slurred speech. All systems rev neg: except as marked Objective General VS: Last Documented: Result Date Time Pulse Ox 100 05/30 815 B/P 131/85 05/30 815 B/P Mean 100 05/30 815 O2 Delivery Room air 05/30 815 Temp 98.1 05/30 815 Pulse 80 05/30 815 Resp 16 05/30 815 PATIENT WEIGHT: Weight (lb): Weight (oz): Weight (kg): 71.400 Medications Current Home Medications CITALOPRAM (CeleXA) 10 MG PO DAILY HYDROCHLOROTHIAZIDE (HCTZ) 12.5 MG PO DAILY SAXAGLIPTIN (ONGLYZA) 5 MG PO DAILY ASCORBIC ACID (VITAMIN C) 500 MG PO DAILY ATORVASTATIN (LIPITOR) 40 MG PO BEDTIME FINASTERIDE (PROSCAR) TAMSULOSIN ER (FLOMAX) 0.8 MG PO DAILY APIXABAN (ELIQUIS) 5 MG PO BID metFORMIN (GLUCOPHAGE) 850 MG PO TID traZODone (DESYREL) 150 MG PO BEDTIME amLODIPine (NORVASC) 10 MG PO DAILY OXYBUTYNIN (DITROPAN) 5 MG PO BID KETOCONAZOLE (NIZORAL 2%) 1 APPLIC TOPICAL MOWEF R KETOCONAZOLE (NIZORAL 2%) 1 APPLIC TOPICAL DAILY traZODone (DESYREL) 150 MG PO BEDTIME PRN INSOMN IA OMEGA-3 FATTY ACIDS (FISH OIL) 1,000 MG PO DAILY DOCUSATE SODIUM (COLACE) 100 MG PO Q12H PRN PRN CONSTIPATION FLUTICASONE PROPIONATE (FLONASE 50 MCG/ACT NASAL ) 1 SPRAY NASAL BID FAMOTIDINE (PEPCID) 20 MG PO BID Active Meds + DC'd Last 24 Hrs Atorvastatin Calcium (LIPITOR) 40 MG BEDTIME PO Heparin Sodium (Porcine) (HEPARIN SODIUM) LOOK AT NOTE BASED ON WEIGHT OF 71.4 K UNITS/KG = 5,000 UNITS (MAX REBOLUS) 40 UNITS/KG = 2,856 UNITS ASDIR PRN IV Metoprolol Tartrate (LOPRESSOR) 25 MG Q12HR PO Aspirin (ECOTRIN) 81 MG DAILY PO Amlodipine Besylate (NORVASC) 10 MG DAILY PO Apixaban (ELIQUIS) 5 MG BID PO (CAN) Citalopram Hydrobromide (CeleXA) 10 MG DAILY PO Finasteride (PROSCAR) 5 MG DAILY PO Ketoconazole (Nizoral 2% Shampoo 120 ML) 1 APPLI C DAILY TOPICAL Oxybutynin Chloride (DITROPAN) 5 MG BID PO Tamsulosin HCl (FLOMAX) 0.8 MG DAILY PO Albumin Human (OPTISON) 3 ML ONCE PRN IV Insulin Human Lispro (HUMALOG) S/SCALE LOW AC HS SUBQ Heparin Sodium (Porcine) (HEPARIN SODIUM) 4,284 UNIT ONCE ONE IV (DC) Heparin Sodium/Dextrose (Heparin 25,000 Unit/500 ML D5W) 500 ML ASDIR IV (CKD) Dextrose/Water (Dextrose 50% W SYRINGE) 50 ML DIR PRN IV (CKD) Docusate Sodium (COLACE) 100 MG Q12H PRN PRN PO Trazodone HCl (DESYREL) 150 MG BEDTIME PRN PO Sodium Chloride (0.9% Sodium Chloride) 1,000 ML .Q10H IV Sodium Chloride (0.9% Sodium Chloride) 250 ML IGNACIO JANETT ONCE ONE IV (DC) Aspirin (ASPIRIN CHEWABLE) 324 MG X1ED STA PO (D C) Iopamidol (ISOVUE-370) 0 .STK-MED ONE IV (DC) Physical Exam General appearance: alert, awake, oriented, no a cute distress Neck: no masses or swelling Respiratory: aerating well, no distress Extremities: moves all Neuro/PRECISION LENS GENERATOR: altered mental status, alert, normal speech, EOMI Neuro comment: Has multiple red rash all over body more in the lower extremities with some tracks Speech Speech: normal Mental Status Orientation: Yes: to time, to place. No: to person, to situat ion. Mental status comments: She was oriented to the month, year and presiden t Cranial Nerves Cranial nerves comments: PERRL, EOMI, no gaze deviatiion. right NL flatte luis Sensory Exam Sensory comments: Decreased pinprick sensation in bilateral toes Motor Testing Motor testing comments: Normal strength throughout except, right leg with contraction, patient reports right knee pain Cerebellar Test Cerebellar test: Normal R finger/nose/finger, Normal L finger/nos e/finger Nystagmus: absent Reflexes Plantar reflexes: Up: Right. Down: Left. Gait Gait comments: Deferred Results Findings/Data: Laboratory Tests 05/30 05/30 05/30 0754 0518 0518 Chemistry Sodium (134 - 147 mmol/L) 135 Potassium (3.4 - 5.0 mmol/L) 3.7 Chloride (100 - 108 mmol/L) 102 Carbon Dioxide (21 - 32 mmol/L) 27 Anion Gap (4.0 - 15.0 GAP calc) 6.0 BUN (7 - 18 MG/DL) 5 L Creatinine (0.8 - 1.3 MG/DL) 0.8 Glomerular Filtr Rate (>60 estGFR) >=60 max es timate Glucose (70 - 110 MG/DL) 123 H POC Glucose (70 - 110 mg/dL) 192 H Hemoglobin A1c (0.0 - 5.7 % A1C) 6.0 H Estim Average Glucose (MG/DLest) 126 Calcium (8.5 - 10.1 MG/DL) 8.9 Triglycerides (0 - 150 MG/DL) 71 Cholesterol (133 - 200 MG/DL) 92 L LDL Cholesterol Measurd (0 - 129 MG/DL) 43 Non-HDL Cholesterol (<130 mg/dL) 45 HDL Cholesterol (40 - 59 MG/DL) 47 LDL/HDL Ratio (1.48 - 3.22 Avg Ratio) 0.91 L Cholesterol/HDL Ratio (0 RATIO) 1.96 05/30 05/29 0402 1442 Chemistry Sodium (134 - 147 mmol/L) 129 L Potassium (3.4 - 5.0 mmol/L) 3.7 Chloride (100 - 108 mmol/L) 93 L Carbon Dioxide (21 - 32 mmol/L) 29 Anion Gap (4.0 - 15.0 GAP calc) 7.0 BUN (7 - 18 MG/DL) 8 Creatinine (0.8 - 1.3 MG/DL) 0.9 Glomerular Filtr Rate (>60 estGFR) >=60 max est imate Glucose (70 - 110 MG/DL) 168 H Calcium (8.5 - 10.1 MG/DL) 9.9 Troponin I High Sens (0 - 54 ng/L) 223.5 *H 160 .5 *H Laboratory Tests 05/30 05/29 05 1442 Coagulation INR (0.8 - 1.2 INR Unit) 1.12 PTT (Benny) (26 - 35 SECONDS) 27.6 28.9 PT Patient/Control Mix (9.3 - 12.9 SECONDS) 12. 8 Laboratory Tests 05/30 05/29 05 1442 Hematology WBC (3.5 - 11.0 K/mm3) 6.6 8.7 RBC (4.70 - 6.10 M/mm3) 4.26 L 4.19 L Hgb (12.3 - 15.9 G/DL) 10.2 L 10.1 L Hct (35.8 - 46.7 %) 32.3 L 31.7 L MCV (86.3 - 98.9 Fl) 75.8 L 75.7 L MCH (28.9 - 34.4 pg) 23.9 L 24.1 L MCHC (32.1 - 34.5 G/DL) 31.6 L 31.9 L RDW (11.5 - 14.5 SD) 16.2 H 16.2 H Plt Count (150 - 450 K/mm3) 210 252 MPV (7.0 - 9.6 fL) 9.80 H 10.00 H Neut % (Auto) (40 - 76 %) 62.1 79.9 H Lymph % (Auto) (20.5 - 51.1 %) 14.0 L 7.6 L Centre % (Auto) (1.7 - 9.3 %) 12.2 H 9.4 H Eos % (Auto) (0.0 - 6.0 %) 9.6 H 1.2 Baso % (Auto) (0.0 - 2.0 %) 1.2 0.7 Neut # (Auto) (1.8 - 7.6 K/mm3) 4.1 6.9 Lymph # (Auto) (0.6 - 3.0 K/mm3) 0.9 0.7 Centre # (Auto) (0.2 - 1.5 K/mm3) 0.8 0.8 Eos # (Auto) (0.0 - 0.4 K/mm3) 0.6 H 0.1 Baso # (Auto) (0.0 - 0.2 K/mm3) 0.1 0.1 Abs Immat Gran (auto) (0.00 - 0.03 x10 3/uL) 0. 06 H 0.10 H Add Manual Diff (CRITERIA DIFF/SCN) NO NO Immature Gran % (0.0 - 5.0 %) 0.9 1.2 Nucleated RBC % (0.0 - 1.0 /100WBC%) 0.0 0.0 Laboratory Tests 05/29 1544 Urines Urine Color (YEL/STRAW discript) YELLOW Urine Appearance (CLEAR discript) HAZY H Urine pH (5.0 - 7.0 pH UNITS) 7.5 H Ur Specific Collison (1.005 - 1.030 SG) <=1.005 Urine Protein (NEG mg/dL) NEGATIVE Urine Glucose (UA) (NEG mg/dL) NEGATIVE Urine Ketones (NEG mg/dL) NEGATIVE Urine Blood (NEG mg/DL) 1+ H Urine Nitrite (NEG SCREEN) NEGATIVE Urine Bilirubin (NEG mg/dL) NEGATIVE Urine Urobilinogen (<2.0 mg/dL) 0.2 Ur Leukocyte Esterase (NEGATIVE Leuk/mcL) NEGAT MARYAN Urine RBC (0 - 3 #RBC/HPF) 5-10 H Urine WBC (0 - 3 #WBC/HPF) 0-1 Ur Squamous Epith Cells (NONE /HPF) TRACE Urine Bacteria (NONE - TRACE /HPF) 1+ H Urine Mucus (NONE SEEN /LPF) TRACE Urine Culture Screen (Culture CHK Criteria) NO, WBC<10 Radiology Data: Recent Impressions: CAT SCAN - CT HEAD/BRAIN W/O CONT 05/29 1401 Report Impression - Status: SIGNED Entered: 05/29/2022 1446 Impression: 1. No evidence of acute pathology. 2. Senescent changes. 3. Left frontal encephalomalacia unchanged. Impression By: [email or web address] - Jose Armando Moreira. CAT SCAN - CT ANGIO NECK 05/29 1408 Report Impression - Status: SIGNED Entered: 05/29/2022 1451 IMPRESSION: 1. Scattered atherosclerotic plaque with mild le ss than 50% narrowing at the left carotid bifurcation. No other area o f significant stenosis. 2. No intracranial large vessel occlusion. Impression By: [email or web address] - Olegario Griffith M.D. CAT SCAN - CT ANGIO HEAD 05/29 1408 Report Impression - Status: SIGNED Entered: 05/29/2022 145 IMPRESSION: 1. Scattered atherosclerotic plaque with mild le ss than 50% narrowing at the left carotid bifurcation. No other area o f significant stenosis. 2. No intracranial large vessel occlusion. Impression By: Homer - Olegario Griffith M.D. RADIOLOGY - XR CHEST 1 V 05/29 1420 Report Impression - Status: SIGNED Entered: 05/29/2022 1447 IMPRESSION: 1. Stable chest. No focal consolidation. Impression By: Homer - Olegario Griffith M.D. Results: labs reviewed, vital signs reviewed, cu rrent med profile rev'd Diagnosis, Assessment Plan Free Text DxA P Notes: 71 years old male who is being evaluated for alt ered mental status. CT of the brain - No evidence of acute pathology . Senescent changes. Left frontal encephalomalacia unchanged. CTA head and neck - Scattered atherosclerotic pl aque with mild less than 50% narrowing at the left carotid bifurcation. No other area o f significant stenosis. No intracranial large vessel occlusion. Hemoglobin A1c 6.0, LDL 43 Diagnoses: 1. Acute encephalopathy - etiology under investi gation on baseline dementia 2. History of chronic infarcts 3. Atrial fibrillation 4. Diabetes mellitus 5. Dementia 6. CAD 7. History of tobacco use 8. Generalized rash Plan: Telemetry. Reviewed CT of the brain. Reviewed CTA head and neck. MRI of the brain - pending. Echo - pending. Continue Aspirin, statin and Eliquis. PT/OT and speech evaluation. Supportive care. Neurology to follow. Thanks for the consult. 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 Patient has had multiple CVA s in the past might be underlying vascular dementia. Will get MRI brain. Neurology will be evaluatin g the patient. PT OT speech therapy. NSTEMI with history of coronary artery disease a nd A. fib Troponin did elevate we will get echocardiogram. Currently on heparin cardiology consulted if no i ntervention needed from cardiology might switch him back to Eliquis. DVT prophylaxis Patient is full code Electronically Signed by Eddi Hoff MD on at 1053 RPT #: [id number] END OF REPORT 2022-05-30 10:15:00-00:00 [facility] ([facility]) Cardiology Consultation REPORT#:[id number] REPORT STATUS: Signed DATE:05/30/22 TIME:1015 PATIENT: FRAN SANTAMARIA UNIT #: [id number] ROOM/BED: [place] [address] : 50 AGE: 71 SEX: M ATTEND: Jacky Gutierrez MD ADM AUTHOR: Sheree Junior CNP * ALL edits or amendments must be made on the el [employer]/computer document * History of Present Illness HPI Requesting Clinician: Dr. Hoff Reason for consult: Elevated troponin Chief complaint: speech abnormality PCP: PCP: No Primary or Family Physician HPI: 71 YO male chronically ill-looking male, appear confused, hx provided by [facility]. The patient has PMH of CVA, AFib on Eliquis, CAD with prior PCI who presented to ED with abnormal speech. Initial Head imaging negative for acute IC finding. Troponin came back elevated and cardiology consultation is requested. Troponin: 160.5->223.5. EKG showed atr ial fibrillation with controlled rate, no acute ST/ T wave changes. The patient denies chest pain or SOB. BIANCA/sister Ayla Ace phone [phone]. History - Adult longitudinal Past medical history: Reports: Atrial fibrillation, Coronary artery di sease, Hypertension, Ischemic stroke. Additional medical history: CVA, hypertension, atrial fibrillation, diabetes mellitus, coronary artery disease Past surgical history: Reports: PCI. Family history: Reports: Diabetes. 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 Objective General VS/I O: Vital Signs: Date Time Temp Pulse Resp B/P B/P Pulse O2 O2 Flow FiO2 Mean Ox Delivery Rate 05/30 0815 36.7 80 16 131/85 100 100 Room air 05/30 0638 60 16 155/87 109 94 05/30 0530 53 16 153/90 111 100 05/29 1722 79 16 148/80 102 100 Room air 05/29 1530 74 16 126/66 86 100 Room air 05/29 1455 99 05/29 1439 84 16 128/63 84 100 Room air 05/29 1355 36.9 65 16 136/65 88 95 Room air 24 hour I O ending at 0700: 05/30 0700 05/29 1900 Intake Total Output Total Balance Patient 71.4 kg Weight Weight Bed scale Measurement Method PATIENT WEIGHT: Weight (lb): Weight (oz): Weight (kg): 71.400 Medications: Active Meds + DC'd Last 24 Hrs Aspirin (ECOTRIN) 81 MG DAILY PO (UNV) Atorvastatin Calcium (LIPITOR) 40 MG BEDTIME PO Metoprolol Tartrate (LOPRESSOR) 25 MG Q12HR PO ( UNV) Heparin Sodium (Porcine) (HEPARIN SODIUM) LOOK AT NOTE BASED ON WEIGHT OF 71.4 K UNITS/KG = 5,000 UNITS (MAX REBOLUS) 40 UNITS/KG = 2,856 UNITS ASDIR PRN IV Amlodipine Besylate (NORVASC) 10 MG DAILY PO Apixaban (ELIQUIS) 5 MG BID PO (CAN) Citalopram Hydrobromide (CeleXA) 10 MG DAILY PO Finasteride (PROSCAR) 5 MG DAILY PO Ketoconazole (Nizoral 2% Shampoo 120 ML) 1 APPLI C DAILY TOPICAL Oxybutynin Chloride (DITROPAN) 5 MG BID PO Tamsulosin HCl (FLOMAX) 0.8 MG DAILY PO Albumin Human (OPTISON) 3 ML ONCE PRN IV Insulin Human Lispro (HUMALOG) S/SCALE LOW AC HS SUBQ Heparin Sodium (Porcine) (HEPARIN SODIUM) 4,284 UNIT ONCE ONE IV (DC) Heparin Sodium/Dextrose (Heparin 25,000 Unit/500 ML D5W) 500 ML ASDIR IV (CKD) Dextrose/Water (Dextrose 50% W SYRINGE) 50 ML DIR PRN IV (CKD) Docusate Sodium (COLACE) 100 MG Q12H PRN PRN PO Trazodone HCl (DESYREL) 150 MG BEDTIME PRN PO Sodium Chloride (0.9% Sodium Chloride) 1,000 ML .Q10H IV Sodium Chloride (0.9% Sodium Chloride) 250 ML IGNACIO JANETT ONCE ONE IV (DC) Aspirin (ASPIRIN CHEWABLE) 324 MG X1ED STA PO (D C) Iopamidol (ISOVUE-370) 0 .STK-MED ONE IV (DC) Physical Exam General appearance: chronically ill appearing, f rail, alert, awake, no acute distress, conversational, no respiratory distres s Neck: non-tender, no JVD Cardiovascular: CV assessment: irregularly irregular Murmur assessment: heart murmur Respiratory: decreased breath sounds, no distres s Abdomen: soft, non-tender, normal bowel sounds, no distention Genitourinary: no flank pain, no urinary cathete r Lower extremity: LE assessment: no calf tenderness, no edema Musculoskeletal: decreased ROM Neuro/PRECISION LENS GENERATOR: alert Skin: poor skin turgor Psychiatry: abnl judgment/insight, normal mood Results Findings/Data: Laboratory Tests 05/30 05/30 05/30 0754 0518 0518 Chemistry Sodium (134 - 147 mmol/L) 135 Potassium (3.4 - 5.0 mmol/L) 3.7 Chloride (100 - 108 mmol/L) 102 Carbon Dioxide (21 - 32 mmol/L) 27 Anion Gap (4.0 - 15.0 GAP calc) 6.0 BUN (7 - 18 MG/DL) 5 L Creatinine (0.8 - 1.3 MG/DL) 0.8 Glomerular Filtr Rate (>60 estGFR) >=60 max est imate Glucose (70 - 110 MG/DL) 123 H POC Glucose (70 - 110 mg/dL) 192 H Hemoglobin A1c (0.0 - 5.7 % A1C) 6.0 H Estim Average Glucose (MG/DLest) 126 Calcium (8.5 - 10.1 MG/DL) 8.9 Triglycerides (0 - 150 MG/DL) 71 Cholesterol (133 - 200 MG/DL) 92 L LDL Cholesterol Measurd (0 - 129 MG/DL) 43 Non-HDL Cholesterol (<130 mg/dL) 45 HDL Cholesterol (40 - 59 MG/DL) 47 LDL/HDL Ratio (1.48 - 3.22 Avg Ratio) 0.91 L Cholesterol/HDL Ratio (0 RATIO) 1.96 05/30 05/29 0402 1442 Chemistry Sodium (134 - 147 mmol/L) 129 L Potassium (3.4 - 5.0 mmol/L) 3.7 Chloride (100 - 108 mmol/L) 93 L Carbon Dioxide (21 - 32 mmol/L) 29 Anion Gap (4.0 - 15.0 GAP calc) 7.0 BUN (7 - 18 MG/DL) 8 Creatinine (0.8 - 1.3 MG/DL) 0.9 Glomerular Filtr Rate (>60 estGFR) >=60 max est imate Glucose (70 - 110 MG/DL) 168 H Calcium (8.5 - 10.1 MG/DL) 9.9 Troponin I High Sens (0 - 54 ng/L) 223.5 *H 160 .5 *H Laboratory Tests 05/30 05/29 0526 1442 Coagulation INR (0.8 - 1.2 INR Unit) 1.12 PTT (Benny) (26 - 35 SECONDS) 27.6 28.9 PT Patient/Control Mix (9.3 - 12.9 SECONDS) 12. 8 Laboratory Tests 05/30 05/29 0526 1442 Hematology WBC (3.5 - 11.0 K/mm3) 6.6 8.7 RBC (4.70 - 6.10 M/mm3) 4.26 L 4.19 L Hgb (12.3 - 15.9 G/DL) 10.2 L 10.1 L Hct (35.8 - 46.7 %) 32.3 L 31.7 L MCV (86.3 - 98.9 Fl) 75.8 L 75.7 L MCH (28.9 - 34.4 pg) 23.9 L 24.1 L MCHC (32.1 - 34.5 G/DL) 31.6 L 31.9 L RDW (11.5 - 14.5 SD) 16.2 H 16.2 H Plt Count (150 - 450 K/mm3) 210 252 MPV (7.0 - 9.6 fL) 9.80 H 10.00 H Neut % (Auto) (40 - 76 %) 62.1 79.9 H Lymph % (Auto) (20.5 - 51.1 %) 14.0 L 7.6 L Centre % (Auto) (1.7 - 9.3 %) 12.2 H 9.4 H Eos % (Auto) (0.0 - 6.0 %) 9.6 H 1.2 Baso % (Auto) (0.0 - 2.0 %) 1.2 0.7 Neut # (Auto) (1.8 - 7.6 K/mm3) 4.1 6.9 Lymph # (Auto) (0.6 - 3.0 K/mm3) 0.9 0.7 Centre # (Auto) (0.2 - 1.5 K/mm3) 0.8 0.8 Eos # (Auto) (0.0 - 0.4 K/mm3) 0.6 H 0.1 Baso # (Auto) (0.0 - 0.2 K/mm3) 0.1 0.1 Abs Immat Gran (auto) (0.00 - 0.03 x10 3/uL) 0. 06 H 0.10 H Add Manual Diff (CRITERIA DIFF/SCN) NO NO Immature Gran % (0.0 - 5.0 %) 0.9 1.2 Nucleated RBC % (0.0 - 1.0 /100WBC%) 0.0 0.0 Laboratory Tests 05/29 1544 Urines Urine Color (YEL/STRAW discript) YELLOW Urine Appearance (CLEAR discript) HAZY H Urine pH (5.0 - 7.0 pH UNITS) 7.5 H Ur Specific Collison (1.005 - 1.030 SG) <=1.005 Urine Protein (NEG mg/dL) NEGATIVE Urine Glucose (UA) (NEG mg/dL) NEGATIVE Urine Ketones (NEG mg/dL) NEGATIVE Urine Blood (NEG mg/DL) 1+ H Urine Nitrite (NEG SCREEN) NEGATIVE Urine Bilirubin (NEG mg/dL) NEGATIVE Urine Urobilinogen (<2.0 mg/dL) 0.2 Ur Leukocyte Esterase (NEGATIVE Leuk/mcL) NEGAT MARYAN Urine RBC (0 - 3 #RBC/HPF) 5-10 H Urine WBC (0 - 3 #WBC/HPF) 0-1 Ur Squamous Epith Cells (NONE /HPF) TRACE Urine Bacteria (NONE - TRACE /HPF) 1+ H Urine Mucus (NONE SEEN /LPF) TRACE Urine Culture Screen (Culture CHK Criteria) NO, WBC<10 Radiology Data: Recent Impressions: CAT SCAN - CT HEAD/BRAIN W/O CONT 05/29 1401 Report Impression - Status: SIGNED Entered: 05/29/2022 1446 Impression: 1. No evidence of acute pathology. 2. Senescent changes. 3. Left frontal encephalomalacia unchanged. Impression By: [email or web address] - Jose Armando Moreira. CAT SCAN - CT ANGIO NECK 05/29 1408 Report Impression - Status: SIGNED Entered: 05/29/2022 145 IMPRESSION: 1. Scattered atherosclerotic plaque with mild le ss than 50% narrowing at the left carotid bifurcation. No other area o f significant stenosis. 2. No intracranial large vessel occlusion. Impression By: [email or web address] - Olegario Griffith M.D. CAT SCAN - CT ANGIO HEAD 05/29 1408 Report Impression - Status: SIGNED Entered: 05/29/2022 1451 IMPRESSION: 1. Scattered atherosclerotic plaque with mild le ss than 50% narrowing at the left carotid bifurcation. No other area o f significant stenosis. 2. No intracranial large vessel occlusion. Impression By: Homer Griffith M.D. RADIOLOGY - XR CHEST 1 V 05/29 1420 Report Impression - Status: SIGNED Entered: 05/29/2022 1447 IMPRESSION: 1. Stable chest. No focal consolidation. Impression By: [email or web address] - Olegario Griffith M.D. Results: labs reviewed, vital signs reviewed, EK G personally reviewed, rhythm personally rev'd EKG Interpretation: atrial fibrillation Diagnosis, Assessment Plan Plan discussed with: patient, healthcare power o f atty Free Text DxA P Notes Free Text DxA P Notes: 71 YO male chronically ill-looking male, appear confused, hx provided by [facility]. The patient has PMH of CVA, AFib on Eliquis, CAD with prior PCI who presented to ED with abnormal speech. Initial Head imaging negative for acute IC finding. Troponin came back elevated and cardiology consultation is requested. Troponin: 160.5->223.5. EKG showed atr ial fibrillation with controlled rate, no acute ST/ T wave changes. The patient denies chest pain or SOB. 1. Chronc atrial fibrillation - rate control resume metoprolol resume Eliquis if ok with neurology echocardiogram 2. Positive troponin - Type I vs Type II NC Known CAD with prior stent leaning toward Type II NC in the setting of poss ible TIA or ?UTI Troponin: 160.5->223.5, will get one more set, i f trending down then will DC heparin gtt will get echocardiogram telemetry ASA 81 mg daily, atorvastatin 40 mg daily, Metop rolol 25 mg BID no indication for invasive intervention at this time 3. Speech disturbance ? TIA, ?encephalopathy, ? Dementia neurology consulted 4. UA positive for bacteriuria manage per primary team 5. Hx of CVA 6. Hypertension continue BB MPOA/sister Ayla Ace phone [phone]. Appreciate the referral. at 1448 Electronically Signed by Sarah Chavez MD on at 2750 RPT #: [id number] END OF REPORT 2022-05-30 02:35:00-00:00 [facility] ([facility]) Hospitalist History Physical REPORT#:[id number] REPORT STATUS: Signed DATE:05/30/22 TIME:234 PATIENT: FRAN SANTAMARIA UNIT #: [id number] ROOM/BED: S210-1 : 50 AGE: 71 SEX: M ATTEND: Jacky Gutierrez MD ADM AUTHOR: Lucas Cueto * ALL edits or amendments must be made on the el [email or web address] document * See Addendum Lucas Cueto 05/30/22 0235: History of Present Illness HPI Chief complaint: Altered mental status PCP: PCP: No Primary or Family Physician HPI: 71-year-old male with PMHx o f massive CVA x5 (per patient), hypertension, atrial fibrillation, diabetes mellitus, coronary artery disease, status post stent placement presented to the ED for altered mental status. Of note, it was unclear when the patient was last seen at his [facility] baseline mental status. The staff at his nursing facility notice d that he had repetitive speech today. In the ED, his NIH score was reported as 0. Head CT and CTA no acute findings or significant stenosis. He was not a candidate for tPA or endovascular therapy due to the time of onset of his symptoms and because the patient is on Eliquis. EKG showed A-fib with HR 77. UA negative for UTI . Found elevated troponin. Vitals stable. Upon my evalu ation patient is alert, orientated x4, appearing his mentation back to at his baseline. He is a good historian. Denies dizziness, chest pain, shortness of suzanne ath, abdominal pain, or nausea vomiting. Patient is incontinence. Patient just wants to be changed. Noted involuntary jerking movement of the left upper extremity. Ashleigh gloria states he usually has low BP. BP nl during ED stay. He is admitted for further ev aluation and management. History Past medical history: Reports: Atrial fibrillation, Coronary artery di sease, Hypertension, Ischemic stroke. Additional medical history: CVA, hypertension, atrial fibrillation, diabetes mellitus, coronary artery disease Past surgical history: Reports: PCI. Family history: Reports: Diabetes. Alcohol use: Denies EtOH use Drug use: Denies recreational drugs Smoking status for patients 13 years old or olde r: Former Smoker Other social history: Local resident Medication/Allergy-Vaccine Hx Medications: Home Medications: Medication Dose/Rte/Freq Days Qty Entered Last Max Daily Dose Reviewed CITALOPRAM (CeleXA) 10 MG PO DAILY 08/08/18 Strength: 10 MG TAB 2343 HYDROCHLOROTHIAZIDE 12.5 MG PO DAILY 08/08/18 (HCTZ) 2344 Strength: 12.5 MG CAP SAXAGLIPTIN (ONGLYZA) 5 MG PO DAILY 08/08/18 Strength: 5 MG TAB 2344 ASCORBIC ACID (VITAMIN C) 500 MG PO DAILY 08/08 Strength: 500 MG TAB 2345 ATORVASTATIN (LIPITOR) 40 MG PO BEDTIME 9 Strength: 40 MG TAB 2345 FINASTERIDE (PROSCAR) 08/08/18 Strength: 5 MG TAB 2346 TAMSULOSIN ER (FLOMAX) 0.8 MG PO DAILY 08/08/18 Strength: 0.4 MG CAP.SR.24H 2346 APIXABAN (ELIQUIS) 5 MG PO BID 08/08/18 Strength: 5 MG TAB 2347 metFORMIN (GLUCOPHAGE) 850 MG PO TID 08/08/18 Strength: 850 MG TAB 2348 traZODone (DESYREL) 150 MG PO BEDTIME 08/08/18 Strength: 150 MG TAB 2349 amLODIPine (NORVASC) 10 MG PO DAILY 08/08/18 Strength: 10 MG TAB 2349 OXYBUTYNIN (DITROPAN) 5 MG PO BID 08/08/18 Strength: 5 MG TAB 235 KETOCONAZOLE 1 APPLIC TOPICAL 08/08/18 (NIZORAL 2%) MOWEFR 2354 Strength: 120 ML SHAMPOO KETOCONAZOLE 1 APPLIC TOPICAL 08/08/18 (NIZORAL 2%) DAILY 2354 Strength: 75 GM CREAM traZODone (DESYREL) 150 MG PO 08/09/18 Strength: 150 MG TAB BEDTIME PRN 0000 INSOMNIA OMEGA-3 FATTY ACIDS 1,000 MG PO DAILY 08/09/18 (FISH OIL) 0001 Strength: 1,000 MG CAP DOCUSATE SODIUM 100 MG PO 30 08/10/18 (COLACE) Q12H PRN PRN 0922 Strength: 100 MG CAP CONSTIPATION FLUTICASONE PROPIONATE 1 SPRAY NASAL BID 30 04/18 (FLONASE 50 MCG/ACT 0923 NASAL) Strength: 16 GM SPRAY FAMOTIDINE (PEPCID) 20 MG PO BID 30 08/10/18 Strength: 20 MG TAB 0924 Current Hospital Medications: Central Nervous System Agents Sig/Manuel Start time Last Medication Dose Route Stop Time Status Admin Aspirin 324 MG X1ED STA 05/29 1606 DC 05/29 (ASPIRIN CHEWABLE) PO 05/29 1607 1632 Diagnostic Agents Sig/Manuel Start time Last Medication Dose Route Stop Time Status Admin Iopamidol 0 .STK-MED ONE 05/29 1404 DC 05/29 (ISOVUE-370) IV 1442 Electrolytic, Caloric, And Shanique Sig/Manuel Start time Last Medication Dose Route Stop Time Status Admin Sodium Chloride 1,000 ML .Q10H 05/30 0245 AC (0.9% Sodium IV 06/29 0244 Chloride) Sodium Chloride 250 ML BOLUS ONCE ONE 05/29 163 0 DC 05/29 (0.9% Sodium IV 05/29 1631 1633 Chloride) Allergies: Coded Allergies: No Known Allergies (05/29/22) 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 Skin: Denies: rash, swelling. Allergy/Immun: Denies: rhinorrhea, sneezing. Eyes: Denies: visual loss/blurred. ENT: Denies: sore throat. Respiratory: Denies: DURAND (dyspnea on exertion), SOB. Cardiovascular: Denies: chest pain, parox nocturnal dyspnea. GI: Denies: abdominal pain, nausea, vomiting. : Denies: dysuria, flank pain. Musculoskeletal: Extremity pain: Denies: left upper, left lower, right upper, ri ght lower. Heme: Denies: adenopathy. Endocrine: Denies: cold intolerance, heat intolerance. Neuro: Denies: confusion, dizziness, numbness, slurred speech, syncope. Psych: Denies: confusion. Objective General VS/I O: Vital Signs: Date Time Temp Pulse Resp B/P B/P Pulse O2 O2 F low FiO2 Mean Ox Delivery Rate 05/29 1722 79 16 148/80 102 100 Room air 05/29 1530 74 16 126/66 86 100 Room air 05/29 1455 99 05/29 1439 84 16 128/63 84 100 Room air 05/29 1355 36.9 65 16 136/65 88 95 Room air 24 hour I O ending at 0700: 05/30 0700 05/29 1900 Intake Total Output Total Balance Patient 71.4 kg Weight Weight Bed scale Measurement Method PATIENT WEIGHT: Weight (lb): Weight (oz): Weight (kg): 71.400 Medications: Active Meds + DC'd Last 24 Hrs Sodium Chloride (0.9% Sodium Chloride) 1,000 ML .Q10H IV Sodium Chloride (0.9% Sodium Chloride) 250 ML IGNACIO JANETT ONCE ONE IV (DC) Aspirin (ASPIRIN CHEWABLE) 324 MG X1ED STA PO (D C) Iopamidol (ISOVUE-370) 0 .STK-MED ONE IV (DC) Physical Exam General appearance: chronica lly ill appearing, alert, awake, oriented, no acute distress, no respiratory distress Head/Eyes: atraumatic, normal conjunctiva/sclera , normal eyelids/periorb., normocephalic, PERRL ENT: moist mucosal membranes Neck: full range of motion, normal thyroid, supp le/no meningismus, no JVD, no masses or swelling Cardiovascular: normal capillary refill, normal heart sounds, regular rate rhythm Respiratory: aerating well, clear to auscultatio n, symmetric expansion, no distress Abdomen: non-tender, normal bowel sounds, soft, no distention Genitourinary: urine, no flank pain Extremities: normal capillary refill, no cyanosi s, no edema Musculoskeletal: normal inspection Neuro/PRECISION LENS GENERATOR: right hemiparesis, alert, oriented X 3, normal speech, no sensory deficits Skin: normal color, normal temperature Lymphatics: neck normal, no lymphadenopathy Psychiatry: normal affect Results Findings/Data: Laboratory Tests 05/29 1442 Chemistry Sodium (134 - 147 mmol/L) 129 L Potassium (3.4 - 5.0 mmol/L) 3.7 Chloride (100 - 108 mmol/L) 93 L Carbon Dioxide (21 - 32 mmol/L) 29 Anion Gap (4.0 - 15.0 GAP calc) 7.0 BUN (7 - 18 MG/DL) 8 Creatinine (0.8 - 1.3 MG/DL) 0.9 Glomerular Filtr Rate (>60 estGFR) >=60 max est imate Glucose (70 - 110 MG/DL) 168 H Calcium (8.5 - 10.1 MG/DL) 9.9 Troponin I High Sens (0 - 54 ng/L) 160.5 *H Laboratory Tests 05/29 1442 Coagulation INR (0.8 - 1.2 INR Unit) 1.12 PTT (Benny) (26 - 35 SECONDS) 28.9 PT Patient/Control Mix (9.3 - 12.9 SECONDS) 12. 8 Laboratory Tests 05/29 1442 Hematology WBC (3.5 - 11.0 K/mm3) 8.7 RBC (4.70 - 6.10 M/mm3) 4.19 L Hgb (12.3 - 15.9 G/DL) 10.1 L Hct (35.8 - 46.7 %) 31.7 L MCV (86.3 - 98.9 Fl) 75.7 L MCH (28.9 - 34.4 pg) 24.1 L MCHC (32.1 - 34.5 G/DL) 31.9 L RDW (11.5 - 14.5 SD) 16.2 H Plt Count (150 - 450 K/mm3) 252 MPV (7.0 - 9.6 fL) 10.00 H Neut % (Auto) (40 - 76 %) 79.9 H Lymph % (Auto) (20.5 - 51.1 %) 7.6 L Centre % (Auto) (1.7 - 9.3 %) 9.4 H Eos % (Auto) (0.0 - 6.0 %) 1.2 Baso % (Auto) (0.0 - 2.0 %) 0.7 Neut # (Auto) (1.8 - 7.6 K/mm3) 6.9 Lymph # (Auto) (0.6 - 3.0 K/mm3) 0.7 Centre # (Auto) (0.2 - 1.5 K/mm3) 0.8 Eos # (Auto) (0.0 - 0.4 K/mm3) 0.1 Baso # (Auto) (0.0 - 0.2 K/mm3) 0.1 Abs Immat Gran (auto) (0.00 - 0.03 x10 3/uL) 0. 10 H Add Manual Diff (CRITERIA DIFF/SCN) NO Immature Gran % (0.0 - 5.0 %) 1.2 Nucleated RBC % (0.0 - 1.0 /100WBC%) 0.0 Laboratory Tests 05/29 1544 Urines Urine Color (YEL/STRAW discript) YELLOW Urine Appearance (CLEAR discript) HAZY H Urine pH (5.0 - 7.0 pH UNITS) 7.5 H Ur Specific Collison (1.005 - 1.030 SG) <=1.005 Urine Protein (NEG mg/dL) NEGATIVE Urine Glucose (UA) (NEG mg/dL) NEGATIVE Urine Ketones (NEG mg/dL) NEGATIVE Urine Blood (NEG mg/DL) 1+ H Urine Nitrite (NEG SCREEN) NEGATIVE Urine Bilirubin (NEG mg/dL) NEGATIVE Urine Urobilinogen (<2.0 mg/dL) 0.2 Ur Leukocyte Esterase (NEGATIVE Leuk/mcL) NEGAT MARYAN Urine RBC (0 - 3 #RBC/HPF) 5-10 H Urine WBC (0 - 3 #WBC/HPF) 0-1 Ur Squamous Epith Cells (NONE /HPF) TRACE Urine Bacteria (NONE - TRACE /HPF) 1+ H Urine Mucus (NONE SEEN /LPF) TRACE Urine Culture Screen (Culture CHK Criteria) NO, WBC<10 Radiology data: Recent Impressions: CAT SCAN - CT HEAD/BRAIN W/O CONT 05/29 1401 Report Impression - Status: SIGNED Entered: 05/29/2022 1446 Impression: 1. No evidence of acute pathology. 2. Senescent changes. 3. Left frontal encephalomalacia unchanged. Impression By: Jose Armando Conde CAT SCAN - CT ANGIO NECK 05/29 1408 Report Impression - Status: SIGNED Entered: 05/29/2022 1451 IMPRESSION: 1. Scattered atherosclerotic plaque with mild le ss than 50% narrowing at the left carotid bifurcation. No other area o f significant stenosis. 2. No intracranial large vessel occlusion. Impression By: Homer Griffith M.D. CAT SCAN - CT ANGIO HEAD 05/29 1408 Report Impression - Status: SIGNED Entered: 05/29/2022 145 IMPRESSION: 1. Scattered atherosclerotic plaque with mild le ss than 50% narrowing at the left carotid bifurcation. No other area o f significant stenosis. 2. No intracranial large vessel occlusion. Impression By: t.[email or web address] Griffith M.D. RADIOLOGY - XR CHEST 1 V 05/29 1420 Report Impression - Status: SIGNED Entered: 05/29/2022 1447 IMPRESSION: 1. Stable chest. No focal consolidation. Impression By: Homer Griffith M.D. Diagnosis, Assessment Plan Free Text DxA P Notes Free Text DxA P Notes: 71 yo male with PMHX of multiple CVAx5, CAD, HTN , DM2 admitted for 1. Altered mental status appearing back to his baseline no obvious convincing metabolic or neurologic e tiology head CT/CTA no significant acute abnormality neuro check 2. Elevated troponin trend troponin x3, EKG x3 Monitor on the telemetry not on anticoagulants, pt is on Eliquis for A-f ib 3. R/O STROKE not a candidate for tPA or neuro intervention h/o massive CVA o2rnfan head CT/CTA ruled out neuro vitals Hemoglobin A1c, lipid panel pending avoid lowering BP too low 4. Hyponatremia unknown etiology IVF, BS control, repeat bmp hold home med HCTZ 5. Atrial fibrillation continue Eliquis not on BB HR controlled 6. DM2 ACHS SSI VTE ppx: on Eliquis Full code Electronically Signed by Lucas Cueto o n 05/30/22 at 0506 Electronically Signed by Cheikh Gutierrez MD on at 1404 Addendum 1: 05/30/22 0512 by Lucas Cueto APRN [employer] Troponin trending up to 223.5 from 160.5. Will h old Eliquis and start heparin drip. Electronically Signed by Lucas Cueto o n 05/30/22 at 0513 Electronically Signed by Cheikh Gutierrez MD on at 1405 RPT #: [id number] END OF REPORT 2022-05-29 13:59:00-00:00 [facility] ([facility]) EMERGENCY PROVIDER REPORT REPORT#:[id number] REPORT STATUS: Signed DATE:05/29/22 TIME:1359 PATIENT: FRAN SANTAMARIA UNIT #: [id number] ROOM/BED: [place] [id number] : 50 AGE: 71 SEX: M PCP PHYS: No Primar y or Family Physician SERVICE AUTHOR: Cami Salomon * ALL edits or amendments must be made on the [employer]/computer document * Cami Salomon 05/29/22 9739: HPI-Altered Mental Status General Initial Greet Date/Time 05/29/22 1357 Presentation Chief Complaint Not acting right Free Text HPI Notes Free Text HPI Notes The patient is a 71-year-old male with a past me dical history significant for hypertension, atrial fibrillation, diabetes boris itus, history of a stroke, coronary artery disease status post stent placem ent who is presenting with altered mental status. Per EMS it is unc lear when the patient was last seen at his normal baseline mental status. The staff at his nursing facility noticed that he had repetitive speech today. Risk-Altered Mental Status NIH Stroke Scale NIH Stroke Scale Response Value NIHSS Applicable? Yes 0 Total 0 Review of Systems ROS Statements All systems rev neg except as marked. Past Medical History - Adult Stated Complaint ALTERED MENTAL STATUS Allergies Coded Allergies: No Known Allergies (05/29/22) Home Medications Active Scripts DOCUSATE SODIUM (COLACE) 100 MG PO Q12H PRN PRN CONSTIPATION FLUTICASONE PROPIONATE (FLONASE 50 MCG/ACT NASAL ) 1 SPRAY NASAL BID FAMOTIDINE (PEPCID) 20 MG PO BID Reported Medications CITALOPRAM (CeleXA) 10 MG PO DAILY HYDROCHLOROTHIAZIDE (HCTZ) 12.5 MG PO DAILY SAXAGLIPTIN (ONGLYZA) 5 MG PO DAILY ASCORBIC ACID (VITAMIN C) 500 MG PO DAILY ATORVASTATIN (LIPITOR) 40 MG PO BEDTIME FINASTERIDE (PROSCAR) TAMSULOSIN ER (FLOMAX) 0.8 MG PO DAILY APIXABAN (ELIQUIS) 5 MG PO BID metFORMIN (GLUCOPHAGE) 850 MG PO TID traZODone (DESYREL) 150 MG PO BEDTIME OXYBUTYNIN (DITROPAN) 5 MG PO BID KETOCONAZOLE (NIZORAL 2%) 1 APPLIC TOPICAL MOWEF R KETOCONAZOLE (NIZORAL 2%) 1 APPLIC TOPICAL DAILY traZODone (DESYREL) 150 MG PO BEDTIME PRN INSOMN IA OMEGA-3 FATTY ACIDS (FISH OIL) 1,000 MG PO DAILY Discontinued Reported Medications amLODIPine (NORVASC) 10 MG PO DAILY Past Medical History: Reports: Atrial fibrillation, Coronary artery di sease, Hypertension, Ischemic stroke. Past Surgical History: Reports: PCI. Physical Exam Vital Signs Review of Vital Signs Reviewed Free Text PE Notes Free Text PE Notes Free Text PE Notes Physical Exam General/Const General/Const Awake, Alert, No acute distress, Well appearing MS Head Head Atraumatic, Normocephalic Eyes Eyes Atraumatic, No scleral icterus Ears/Nose/Throat Ears/Nose/Throat Atraumatic, Airway patent, Muc ous membranes moist, Pharynx NL MS Neck Neck Atraumatic, Supple, No meningismus, Full r renee of motion Resp/Chest Respiratory/Chest Atraumatic, Breath sounds NL, Breath sounds = bilat, No respiratory distress Cardiovascular Cardiovascular Heart rate NL, Regular rhythm, H eart sounds NL, No gallop, No murmurs Abdomen/GI Abdomen/GI Atraumatic, Soft, Non-tender, McBurn ey's non-tender, No guarding MS Back Back Atraumatic, No muscle spasm MS Upper Extrem Upper Extremity/MS Atraumatic, Inspection NL, N o swelling MS Lower Extrem Lower Ext/Pelvis/MS Atraumatic, Inspection NL, No swelling, Non-tender Skin Skin Atraumatic, Color NL, No rash, Warm Neurologic Neurologic Oriented X3, Speech NL, No motor def icits, No sensory deficits Interpretation Diagnostics ECG #1 Interpretation Text/Dict Note Atrial fibrillation with a heart rate of 77. No STEMI. Date 05/29/22 Time 1433 Interpreted by ED physician Re-Evaluation MDM Free Text MDM Notes Free Text MDM Notes The patient is not a candidate for tPA o r endovascular therapy due to the time of onset of his symptoms and because the patient is on Eliquis. )( Re-Evaluation/Progress #1 Text/Dict Note I spoke with the patient's s ister (Clarice Ace [phone]). The patient was last seen at his normal baseline mental status 1 week ago. Time of Re-Eval 1605 )( Re-Eval Status Unchanged ED Course Medication(s) Ordered Medication(s) Ordered: Central Nervous System Agents Sig/Manuel Start time Last Medication Dose Route Stop Time Status Admin Aspirin 324 MG X1ED STA 05/29 1606 DC 05/29 PO 05/29 1607 1632 Diagnostic Agents Sig/Manuel Start time Last Medication Dose Route Stop Time Status Admin Iopamidol 0 .STK-MED ONE 05/29 1404 DC 05/29 IV 1442 Electrolytic, Caloric, And Shanique Sig/Manuel Start time Last Medication Dose Route Stop Time Status Admin Sodium Chloride 250 ML BOLUS ONCE ONE 05/29 163 0 DC 05/29 IV 05/29 1631 1633 Patient Discharge Departure Disposition Decision Transfer )( Request Time 1554 )( Request Date 05/29/22 Call Returned Time 1554 Discharge/Care Plan (Auto) Prescriptions Current Visit Scripts METOPROLOL SUCC XL (TOPROL XL) 25 MG PO DAILY METOPROLOL SUCC XL (TOPROL XL) 25 MG PO DAILY # 30 TAB Iván Magaña 05/29/222036: Physical Exam Vital Signs Vital Signs First Documented: Result Date Time Pulse Ox 95 05/29 1355 B/P 136/65 05/29 1355 B/P Mean 88 05/29 1355 O2 Delivery Room air 05/29 1355 Temp 36.9 05/29 1355 Pulse 65 05/29 1355 Resp 16 05/29 1355 Last Documented: Result Date Time Pulse Ox 100 05/29 1722 B/P 148/80 05/29 1722 B/P Mean 102 05/29 1722 O2 Delivery Room air 05/29 1722 Pulse 79 05/29 1722 Resp 16 05/29 1722 Temp 36.9 05/29 1355 Interpretation Diagnostics Lab Results Interpretation Results Laboratory Tests 05/29/22 1442: [Embedded Image Not Available] Laboratory Tests: 05/29 05/29 1544 1442 Chemistry Sodium (134 - 147 mmol/L) 129 L Potassium (3.4 - 5.0 mmol/L) 3.7 Chloride (100 - 108 mmol/L) 93 L Carbon Dioxide (21 - 32 mmol/L) 29 Anion Gap (4.0 - 15.0 GAP calc) 7.0 BUN (7 - 18 MG/DL) 8 Creatinine (0.8 - 1.3 MG/DL) 0.9 Glomerular Filtr Rate (>60 estGFR) >=60 max est imate Glucose (70 - 110 MG/DL) 168 H Calcium (8.5 - 10.1 MG/DL) 9.9 Troponin I High Sens (0 - 54 ng/L) 160.5 *H Coagulation INR (0.8 - 1.2 INR Unit) 1.12 PTT (Howard) (26 - 35 SECONDS) 28.9 PT Patient/Control Mix (9.3 - 12.9 SECONDS) 12. 8 Hematology WBC (3.5 - 11.0 K/mm3) 8.7 RBC (4.70 - 6.10 M/mm3) 4.19 L Hgb (12.3 - 15.9 G/DL) 10.1 L Hct (35.8 - 46.7 %) 31.7 L MCV (86.3 - 98.9 Fl) 75.7 L MCH (28.9 - 34.4 pg) 24.1 L MCHC (32.1 - 34.5 G/DL) 31.9 L RDW (11.5 - 14.5 SD) 16.2 H Plt Count (150 - 450 K/mm3) 252 MPV (7.0 - 9.6 fL) 10.00 H Neut % (Auto) (40 - 76 %) 79.9 H Lymph % (Auto) (20.5 - 51.1 %) 7.6 L Centre % (Auto) (1.7 - 9.3 %) 9.4 H Eos % (Auto) (0.0 - 6.0 %) 1.2 Baso % (Auto) (0.0 - 2.0 %) 0.7 Neut # (Auto) (1.8 - 7.6 K/mm3) 6.9 Lymph # (Auto) (0.6 - 3.0 K/mm3) 0.7 Centre # (Auto) (0.2 - 1.5 K/mm3) 0.8 Eos # (Auto) (0.0 - 0.4 K/mm3) 0.1 Baso # (Auto) (0.0 - 0.2 K/mm3) 0.1 Abs Immat Gran (auto) (0.00 - 0.03 x10 3/uL) 0. 10 H Add Manual Diff (CRITERIA DIFF/SCN) NO Immature Gran % (0.0 - 5.0 %) 1.2 Nucleated RBC % (0.0 - 1.0 /100WBC%) 0.0 Urines Urine Color (YEL/STRAW discript) YELLOW Urine Appearance (CLEAR discript) HAZY H Urine pH (5.0 - 7.0 pH UNITS) 7.5 H Ur Specific Collison (1.005 - 1.030 SG) <=1.005 Urine Protein (NEG mg/dL) NEGATIVE Urine Glucose (UA) (NEG mg/dL) NEGATIVE Urine Ketones (NEG mg/dL) NEGATIVE Urine Blood (NEG mg/DL) 1+ H Urine Nitrite (NEG SCREEN) NEGATIVE Urine Bilirubin (NEG mg/dL) NEGATIVE Urine Urobilinogen (<2.0 mg/dL) 0.2 Ur Leukocyte Esterase (NEGATIVE Leuk/mcL) NEGAT MARYAN Urine RBC (0 - 3 #RBC/HPF) 5-10 H Urine WBC (0 - 3 #WBC/HPF) 0-1 Ur Squamous Epith Cells (NONE /HPF) TRACE Urine Bacteria (NONE - TRACE /HPF) 1+ H Urine Mucus (NONE SEEN /LPF) TRACE Urine Culture Screen (Culture CHK Criteria) NO, WBC<10 Recent Impressions: CAT SCAN - CT HEAD/BRAIN W/O CONT 05/29 1401 Report Impression - Status: SIGNED Entered: 05/29/2022 1446 Impression: 1. No evidence of acute pathology. 2. Senescent changes. 3. Left frontal encephalomalacia unchanged. Impression By: Jose Armando Conde CAT SCAN - CT ANGIO NECK 05/29 140 Report Impression - Status: SIGNED Entered: 05/29/2022 1451 IMPRESSION: 1. Scattered atherosclerotic plaque with mild le ss than 50% narrowing at the left carotid bifurcation. No other area o f significant stenosis. 2. No intracranial large vessel occlusion. Impression By: Homer Griffith M.D. CAT SCAN - CT ANGIO HEAD 05/29 1408 Report Impression - Status: SIGNED Entered: 05/29/2022 1451 IMPRESSION: 1. Scattered atherosclerotic plaque with mild le ss than 50% narrowing at the left carotid bifurcation. No other area o f significant stenosis. 2. No intracranial large vessel occlusion. Impression By: Homer Griffith M.D. RADIOLOGY - XR CHEST 1 V 05/29 1420 Report Impression - Status: SIGNED Entered: 05/29/2022 1447 IMPRESSION: 1. Stable chest. No focal consolidation. Impression By: [email or web address] - Olegario S. Case, M.D. Re-Evaluation MDM Re-Evaluation/Progress #2 Text/Dict Note Signed out to me with plan t o complete transfer. Transfer center called me back and told me that they are unavailable to find hospital to accept him given his and his family's criteria. Will admit here for f urther management Time of Eval 0137 Re-Eval Status Unchanged Patient Discharge Departure Vital Signs/Condition Vital Signs First Documented: Result Date Time Pulse Ox 95 05/29 1355 B/P 136/65 05/29 1355 B/P Mean 88 05/29 1355 O2 Delivery Room air 05/29 1355 Temp 36.9 05/29 1355 Pulse 65 05/29 1355 Resp 16 05/29 1355 Last Documented: Result Date Time Pulse Ox 100 05/29 1722 B/P 148/80 05/29 1722 B/P Mean 102 05/29 1722 O2 Delivery Room air 05/29 172 Pulse 79 05/29 1722 Resp 16 05/29 1722 Temp 36.9 05/29 1355 All vital signs available at the time of this en try have been reviewed. Clinical Impression Clinical Impression Primary Impression: Altered mental status Secondary Impressions: Elevated troponin, R/O [place] Disposition Decision Admit Admit Physician Name Cheikh Gutierrez MD Admit Physician Hospitalist Request Time 0138 Request Date 05/30/22 )( Admission Accepts Yes )( Accepted Time 013 )( Accepted Date 05/30/22 Call Information will see patient, agrees with eval, agrees with plan Electronically Signed by Iván Magaña MD on at 0139 at 0242 RPT #: [id number] END OF REPORT 2018-08-10 10:22:00-00:00 [facility] ([facility]) Neurology Progress Note REPORT#:[id number] REPORT STATUS: Signed DATE:08/10/18 TIME:102 PATIENT: FRAN SANTAMARIA UNIT #: [id number] ROOM/BED: [place] [address] : 50 AGE: 67 SEX: M ATTEND: Jacky Gutierrez MD ADM AUTHOR: Romy Marie MD * ALL edits or amendments must be made on the el [employer]/computer document * Subjective Chief Complaint: weakness HPI: feeling better. offers no complaints. Review of Systems Neuro: Reports: gait problem, weakness. Systems reviewed negative: allergy/Immun, cardio vascular, constitutional, endocrine, ENT, eyes, GI, , heme, musculoskele christine, psych, respiratory, skin Objective Physical Exam VS: Last Documented: Result Date Time Pulse Ox 93 08/10 703 B/P 133/73 08/10 703 B/P Mean 0.0 08/10 703 Temp 36.8 08/10 703 Pulse 63 08/10 703 Resp 18 08/10 703 O2 Delivery Room air 08/08 1927 Medications: Current Home Medications CITALOPRAM (CeleXA) 10 MG PO DAILY HYDROCHLOROTHIAZIDE (HCTZ) 12.5 MG PO DAILY SAXAGLIPTIN (ONGLYZA) 5 MG PO DAILY ASCORBIC ACID (VITAMIN C) 500 MG PO DAILY ATORVASTATIN (LIPITOR) 40 MG PO BEDTIME FINASTERIDE (PROSCAR) TAMSULOSIN ER (FLOMAX) 0.8 MG PO DAILY APIXABAN (ELIQUIS) 5 MG PO BID metFORMIN (GLUCOPHAGE) 850 MG PO TID traZODone (DESYREL) 150 MG PO BEDTIME amLODIPine (NORVASC) 10 MG PO DAILY OXYBUTYNIN (DITROPAN) 5 MG PO BID KETOCONAZOLE (NIZORAL 2%) 1 APPLIC TOPICAL MOWEF R KETOCONAZOLE (NIZORAL 2%) 1 APPLIC TOPICAL DAILY traZODone (DESYREL) 150 MG PO BEDTIME PRN INSOMN IA OMEGA-3 FATTY ACIDS (FISH OIL) 1,000 MG PO DAILY DOCUSATE SODIUM (COLACE) 100 MG PO Q12H PRN PRN CONSTIPATION FLUTICASONE PROPIONATE (FLONASE 50 MCG/ACT NASAL ) 1 SPRAY NASAL BID FAMOTIDINE (PEPCID) 20 MG PO BID Active Meds + DC'd Last 24 Hrs Famotidine 20 MG BID PO Trazodone HCl 150 MG BEDTIME PO (CKD) Atorvastatin Calcium 40 MG DAILY 1700 PO Fluticasone Propionate 1 SPRAY BID NASAL (CKD) Phenol 1 SPRAY QID PRN PRN MM Sodium Chloride 1,000 ML .Q20H IV Insulin Human Lispro S/SCALE LOW AC HS SUBQ Dextrose/Water 50 ML ASDIR PRN IV Amlodipine Besylate 10 MG DAILY PO Apixaban 5 MG BID PO (CKD) Ascorbic Acid 500 MG DAILY PO Finasteride 5 MG DAILY PO Hydrochlorothiazide 12.5 MG DAILY PO Oxybutynin Chloride 5 MG BID PO (CKD) Tamsulosin HCl 0.8 MG DAILY PO Trazodone HCl 150 MG BEDTIME PRN PO Acetaminophen 650 MG Q4H PRN PRN PO Docusate Sodium 100 MG Q12H PRN PRN PO Hydrocodone Bitart/Acetaminophen 1 TAB Q4H PRN P RN PO Hydrocodone Bitart/Acetaminophen 1 TAB Q4H PRN P RN PO Ondansetron HCl 4 MG Q4H PRN PRN IV General appearance: alert, awake Head/Eyes: atraumatic, clear cornea ENT: moist mucosal membranes Neck: full range of motion Cardiovascular: irregular rate and rhythm Respiratory: aerating well, no distress Extremities: moves all, pulses present, no edema Musculoskeletal: full range of motion Speech Speech: normal Mental Status Orientation: Yes: to time, to place, to person, to situation. LOC: alert Cranial Nerves Cranial nerves: Normal: II, III, IV, V, , VII, VIII, IX, X, XI , XII. Sensory Exam Sensory: Normal: light touch. Motor Testing Motor testing 1: Normal: bulk, tone, fine movements, strength. Cerebellar Test Cerebellar test: Normal R finger/nose/finger, Normal L finger/nos e/finger, Normal R heel/knee/ ramirez, Normal L heel/knee/ramirez, Normal R alt rapid movement, Normal L alt rapid movement Reflexes Plantar reflexes: Up: Right. Gait Gait comments: walks with a walker Results Findings/Data: Laboratory Tests 08/10 08/10 08/09 08/09 08/09 0749 0415 2040 1611 1215 Chemistry Sodium (134 - 147 mmol/L) 136 Potassium (3.4 - 5.0 mmol/L) 3.6 Chloride (100 - 108 mmol/L) 101 Carbon Dioxide (21 - 32 mmol/L) 26 Anion Gap (4.0 - 15.0 GAP calc) 9.0 BUN (7 - 18 MG/DL) 12 Creatinine (0.8 - 1.3 MG/DL) 0.9 Glomerular Filtr Rate (>60 >=60 max estimate estGFR) Glucose (70 - 110 MG/DL) 171 H POC Glucose (70 - 110 mg/dL) 191 H 199 H 219 H 185 H Calcium (8.5 - 10.1 MG/DL) 7.9 L Laboratory Tests 08/10 0415 Hematology WBC (3.5 - 11.0 K/mm3) 6.5 RBC (4.70 - 6.10 M/mm3) 3.88 L Hgb (12.3 - 15.9 G/DL) 11.3 L Hct (35.8 - 46.7 %) 33.5 L MCV (86.3 - 98.9 Fl) 86.3 MCH (28.9 - 34.4 pg) 29.1 MCHC (32.1 - 34.5 G/DL) 33.7 RDW (11.5 - 14.5 SD) 13.4 Plt Count (150 - 450 K/mm3) 139.0 L MPV (7.0 - 9.6 fL) 11.70 H Neut % (Auto) (40 - 76 %) 65.5 Lymph % (Auto) (20.5 - 51.1 %) 14.0 L Centre % (Auto) (1.7 - 9.3 %) 11.1 H Eos % (Auto) (0.0 - 6.0 %) 8.9 H Baso % (Auto) (0.0 - 2.0 %) 0.5 Neut # (Auto) (1.8 - 7.6 K/mm3) 4.27 Lymph # (Auto) (0.6 - 3.0 K/mm3) 0.9 Centre # (Auto) (0.2 - 1.5 K/mm3) 0.7 Eos # (Auto) (0.0 - 0.4 K/mm3) 0.6 H Baso # (Auto) (0.0 - 0.2 K/mm3) 0.0 Add Manual Diff (CRITERIA DIFF/SCN) NO Radiology Data: Recent Impressions: MAGNETIC RESONANCE IMAGING - MRI BRAIN W/O CONTR AST 08/09 1108 Report Impression - Status: SIGNED Entered: 08/09/2018 1156 IMPRESSION: Findings likely reflective a small dural based m eningioma centered laterally along the high convexity left frontal region measuring 2.1 x 2.1 x 1.2 cm in size with minimal local mass eff ect without associated edema. The finding exhibits restriction typical for a meningioma. No other space-occupying process. Doubt other extra -axial lesions accounting for the findings No acute vascular insult. No intracranial hemorr leah. 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 Chr onic microvascular changes elsewhere. Impression By: [email or web address] - Daina herron M.D. Results: labs reviewed, vital signs stable, curr ent med profile rev'd Diagnosis, Assessment Plan Free Text A P: 1. weakness - Possible recrudescence of stroke s ymptoms in setting of acute renal failure, uncontrolled hyperglycemia, recen t URTI 2. Hypertension 3. Diabetes mellitus 4. Atrial fibrillation 5. Acute renal failure - resolved. 6. Chronic left frontal stroke/reported history of multiple strokes 7. Recent URTI 8. Left frontal meningioma PLAN: Telemetry. Reviewed CT scan of head and MRI brain images. Continue with current medications. Check fasting lipid profile. Advised better hydration. IV fluids per primary team. PT and OT evaluation. Fall precautions. DVT prophylaxis. Neurology to follow. Plan was discussed with the patient and primary team. 08/10 - stable. pt is getting discharged today. at [facility] RPT #: [id number] END OF REPORT 2018-08-10 09:17:00-00:00 [facility] ([facility]) Discharge Summary REPORT#:[id number] REPORT STATUS: Signed DATE:08/10/18 TIME:916 PATIENT: FRAN SANTAMARIA UNIT #: [id number] ROOM/BED: [facility] : 50 AGE: 67 SEX: M ATTEND: Jacky Gutierrez MD ADM AUTHOR: Jaydon Lester NP * ALL edits or amendments must be made on the el ectronic/computer document * PCP PCP PCP: PCP: DOES_NOT KNOW [place] [facility] [place] Information Date of admission: Observation Start Date: 08/08/18 Date of admission: 08/08/18 Date of discharge: 08/10/18 Admission diagnosis: Generalized weakness Acute kidney injury Hypertension Hyperlipidemia Atrial fibrillation Chronic left frontal stroke with history of mult iple strokes in the past Left frontal meningioma Discharge diagnosis: Generalized weakness Acute kidney injury Hypertension Hyperlipidemia Atrial fibrillation Chronic left frontal stroke with history of mult iple strokes in the past Left frontal meningioma Hospital course: Generalized weakness Acute kidney injury Hypertension Hyperlipidemia Atrial fibrillation Chronic left frontal stroke with history of mult iple strokes in the past Left frontal meningioma Plan We will get an MRI to rule out any acute CVA and status of meningioma Monitor renal parameters Start on IV fluids Neurology consult Continue home medications and titrate as needed Discussed with family Possible DC in a.m. if workup is negative GI/DVT prophylaxis Advanced directive: Full code at 1809 08/10/18 pt requesting to be d/c home. stroke has been r/o. will get CM to ordered Home health PT/SN will add pepcid 20 mg po bid on d/c d/c home was ok with Dr. Gutierrez. I have discussed the MRI results with Dr Venessa Gutierrez and the pt. the pt reported he has had the meningioma for over 9-10 years. Pt. condition on discharge: improved, stable Allergies: Allergies: No Known Allergies (Coded, 08/08/18) Med Rec PCP PCP: PCP: DOES_NOT KNOW Med Rec Discharge meds: Continue taking these medications: CITALOPRAM (CeleXA) 10 MG TAB 10 MILLIGRAM ORAL DAILY. HYDROCHLOROTHIAZIDE (HCTZ) 12.5 MG CAP 12.5 MILLIGRAM ORAL DAILY. SAXAGLIPTIN (ONGLYZA) 5 MG TAB 5 MILLIGRAM ORAL DAILY. ASCORBIC ACID (VITAMIN C) 500 MG TAB 500 MILLIGRAM ORAL DAILY. ATORVASTATIN (LIPITOR) 40 MG TAB 40 MILLIGRAM ORAL BEDTIME. FINASTERIDE (PROSCAR) 5 MG TAB TAMSULOSIN ER (FLOMAX) 0.4 MG CAP.SR.24H 0.8 MILLIGRAM ORAL DAILY. APIXABAN (ELIQUIS) 5 MG TAB 5 MILLIGRAM ORAL TWICE DAILY. metFORMIN (GLUCOPHAGE) 850 MG TAB 850 MILLIGRAM ORAL THREE TIMES A DAY. traZODone (DESYREL) 150 MG TAB 150 MILLIGRAM ORAL BEDTIME. amLODIPine (NORVASC) 10 MG TAB 10 MILLIGRAM ORAL DAILY. Instructions: HOLD BP <110/60 OXYBUTYNIN (DITROPAN) 5 MG TAB 5 MILLIGRAM ORAL TWICE DAILY. KETOCONAZOLE (NIZORAL 2%) 120 ML SHAMPOO 1 APPLIC TOPICAL SATURDAY, SATURDAY, SATURDAY. KETOCONAZOLE (NIZORAL 2%) 75 GM CREAM 1 APPLIC TOPICAL DAILY. traZODone (DESYREL) 150 MG TAB 150 MILLIGRAM ORAL BEDTIME. as needed for INSOM VALERIA OMEGA-3 FATTY ACIDS (FISH OIL) 1,000 MG CAP 1,000 MILLIGRAM ORAL DAILY. Start taking the following new medications: FLUTICASONE PROPIONATE (FLONASE 50 MCG/ACT NASAL ) 16 GM SPRAY 1 SPRAY NASAL TWICE DAILY. Days = 30 No Refills DOCUSATE SODIUM (COLACE) 100 MG CAP 100 MILLIGRAM ORAL EVERY 12 HR NEEDED. as ne eded for CONSTIPATION Days = 30 No Refills FAMOTIDINE (PEPCID) 20 MG TAB 20 MILLIGRAM ORAL TWICE DAILY. Days = 30 No Refills Discharge Instructions Diet: cardiac, low fat, low sodium Weight monitor: Weekly Notify provider of these s/s: follow up with pcp in 1-4 days. you must call fo r an appointment. Prescriptions: on chart Discharge management: greater than 30 mins Time spent: Time spent with pt: 35 minutes or more Objective VS/I O Last Documented: Result Date Time Pulse Ox 93 08/10 07 B/P 133/73 08/10 0704 B/P Mean 0.0 08/10 0704 Temp 98.2 08/10 0704 Pulse 63 08/10 0704 Resp 18 08/10 0704 O2 Delivery Room air 08/088 24 hour I O ending at 0700: 08/10 0700 08/09 1900 Intake Total 300 Output Total 900 Balance -600 Intake, Oral 300 Output, Urine 900 Patient 94.347 kg Weight Weight Bed scale Measurement Method General appearance: alert, awake, oriented, no a cute distress, pleasant, conversational, mental status normal, no respira tory distress Head/Eyes: atraumatic, EOMI ENT: normal nose, moist mucosal membranes Neck: full range of motion, non-tender, supple/n o meningismus Cardiovascular: normal capillary refill, regular rate rhythm, normal heart sounds Respiratory: clear to auscultation, no distress, no tenderness, aerating well GI: soft, non-tender, no distention Abdomen quadrants: LLQ normal bowel sounds, LUQ normal treasure l sounds, RLQ normal bowel sounds, RUQ normal bowel sounds Genitourinary: not indicated Extremities: moves all, no edema-all extremities , normal capillary refill, normal range of motion, normal sensory, normal m otor function, no evidence of DVT Musculoskeletal: full range of motion, normal in spection Neuro/PRECISION LENS GENERATOR: alert, oriented X 3, normal g ait, normal speech, no motor deficits, no sensory deficits Gordon Coma Score: Timothy Coma Score: Response Value Timothy eyes: eyes open spontaneously 4 Gordon speech: oriented 5 Gordon motor: obeys commands 6 Total 15 Skin: dry, intact Psychiatry: normal affect, normal judgment/insig ht, normal mood Results Findings/Data: Laboratory Tests: 08/10 08/10 08/09 08/09 08/09 0749 0415 2040 1611 1215 Chemistry Sodium (134 - 147 mmol/L) 136 Potassium (3.4 - 5.0 mmol/L) 3.6 Chloride (100 - 108 mmol/L) 101 Carbon Dioxide (21 - 32 mmol/L) 26 Anion Gap (4.0 - 15.0 GAP calc) 9.0 BUN (7 - 18 MG/DL) 12 Creatinine (0.8 - 1.3 MG/DL) 0.9 Glomerular Filtr Rate (>60 >=60 max estimate estGFR) Glucose (70 - 110 MG/DL) 171 H POC Glucose (70 - 110 mg/dL) 191 H 199 H 219 H 185 H Calcium (8.5 - 10.1 MG/DL) 7.9 L Hematology WBC (3.5 - 11.0 K/mm3) 6.5 RBC (4.70 - 6.10 M/mm3) 3.88 L Hgb (12.3 - 15.9 G/DL) 11.3 L Hct (35.8 - 46.7 %) 33.5 L MCV (86.3 - 98.9 Fl) 86.3 MCH (28.9 - 34.4 pg) 29.1 MCHC (32.1 - 34.5 G/DL) 33.7 RDW (11.5 - 14.5 SD) 13.4 Plt Count (150 - 450 K/mm3) 139.0 L MPV (7.0 - 9.6 fL) 11.70 H Neut % (Auto) (40 - 76 %) 65.5 Lymph % (Auto) (20.5 - 51.1 %) 14.0 L Centre % (Auto) (1.7 - 9.3 %) 11.1 H Eos % (Auto) (0.0 - 6.0 %) 8.9 H Baso % (Auto) (0.0 - 2.0 %) 0.5 Neut # (Auto) (1.8 - 7.6 K/mm3) 4.27 Lymph # (Auto) (0.6 - 3.0 0.9 K/mm3) Centre # (Auto) (0.2 - 1.5 K/mm3) 0.7 Eos # (Auto) (0.0 - 0.4 K/mm3) 0.6 H Baso # (Auto) (0.0 - 0.2 K/mm3) 0.0 Add Manual Diff (CRITERIA NO DIFF/SCN) Radiology data: Recent Impressions: CAT SCAN - CT HEAD/BRAIN W/O CONT 08/08 2019 Report Impression - Status: SIGNED Entered: 08/08/20182038 IMPRESSION: No evidence of acute intracranial abnormality. Chronic infarcts within the left parietal and fr ontal lobes. Extra-axial lesion towards the vertex of the lef t frontal lobe measuring 1.7 x 1.2 x 1.2 cm, likely related to a meningioma. If not previously assessed, recommend follow-up with an MRI brain without and with contrast. Impression By: [email or web address] - Hua Anaya M.D. RADIOLOGY - XR CHEST 1 V 08/08 2025 Report Impression - Status: SIGNED Entered: 08/08/20182037 IMPRESSION: Unremarkable portable examination of the chest. Impression By: [email or web address] - Jr Sultana [facility]ON[facility] IMAGING - MRI BRAIN W/O CONTR AST 08/09 1108 Report Impression - Status: SIGNED Entered: 08/09/2018 1156 IMPRESSION: Findings likely reflective a small dural based m eningioma centered laterally along the high convexity left frontal region measuring 2.1 x 2.1 x 1.2 cm in size with minimal local mass eff ect without associated edema. The finding exhibits restriction typical for a meningioma. No other space-occupying process. Doubt other extra -axial lesions accounting for the findings No acute vascular insult. No intracranial hemorr leah. 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 Chr onic microvascular changes elsewhere. Impression By: Wang herron M.D. Recent Impressions: MAGNETIC RESONANCE IMAGING - MRI BRAIN W/O CONTR AST 08/09 1108 Report Impression - Status: SIGNED Entered: 08/09/2018 1156 IMPRESSION: Findings likely reflective a small dural based m eningioma centered laterally along the high convexity left frontal region measuring 2.1 x 2.1 x 1.2 cm in size with minimal local mass eff ect without associated edema. The finding exhibits restriction typical for a meningioma. No other space-occupying process. Doubt other extra -axial lesions accounting for the findings No acute vascular insult. No intracranial hemorr leah. 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 Chr onic microvascular changes elsewhere. Impression By: Wang herron M.D. Results: labs reviewed at 0927 RPT #: [id number] END OF REPORT 2018-08-10 09:17:00-00:00 [facility] ([facility]) Discharge Summary REPORT#:[id number] REPORT STATUS: Signed DATE:08/10/18 TIME:916 PATIENT: FRAN SANTAMARIA UNIT #: [id number] ROOM/BED: [place] [id number] : 50 AGE: 67 SEX: M ATTEND: Jacky Gutierrez MD ADM AUTHOR: Jaydon Lester NP * ALL edits or amendments must be made on the el ectronic/computer document * Jaydon Lester NP 08/10/18 0917: PCP PCP PCP: PCP: DOES_NOT KNOW [place] [facility] [place] Date of admission: Observation Start Date: 08/08/18 Date of admission: 08/08/18 Date of discharge: 08/10/18 Admission diagnosis: Generalized weakness Acute kidney injury Hypertension Hyperlipidemia Atrial fibrillation Chronic left frontal stroke with history of mult iple strokes in the past Left frontal meningioma Discharge diagnosis: Generalized weakness Acute kidney injury Hypertension Hyperlipidemia Atrial fibrillation Chronic left frontal stroke with history of mult iple strokes in the past Left frontal meningioma Hospital course: Generalized weakness Acute kidney injury Hypertension Hyperlipidemia Atrial fibrillation Chronic left frontal stroke with history of mult iple strokes in the past Left frontal meningioma Plan We will get an MRI to rule out any acute CVA and status of meningioma Monitor renal parameters Start on IV fluids Neurology consult Continue home medications and titrate as needed Discussed with family Possible DC in a.m. if workup is negative GI/DVT prophylaxis Advanced directive: Full code at 1809 08/10/18 pt requesting to be d/c home. stroke has been r/o. will get CM to ordered Home health PT/SN will add pepcid 20 mg po bid on d/c d/c home was ok with Dr. Gutierrez. I have discussed the MRI results with Dr Venessa Gutierrez and the pt. the pt reported he has had the meningioma for over 9-10 years. Pt. condition on discharge: improved, stable Allergies: Allergies: No Known Allergies (Coded, 08/08/18) Med Rec PCP PCP: PCP: DOES_NOT KNOW Med Rec Discharge meds: Continue taking these medications: CITALOPRAM (CeleXA) 10 MG TAB 10 MILLIGRAM ORAL DAILY. HYDROCHLOROTHIAZIDE (HCTZ) 12.5 MG CAP 12.5 MILLIGRAM ORAL DAILY. SAXAGLIPTIN (ONGLYZA) 5 MG TAB 5 MILLIGRAM ORAL DAILY. ASCORBIC ACID (VITAMIN C) 500 MG TAB 500 MILLIGRAM ORAL DAILY. ATORVASTATIN (LIPITOR) 40 MG TAB 40 MILLIGRAM ORAL BEDTIME. FINASTERIDE (PROSCAR) 5 MG TAB TAMSULOSIN ER (FLOMAX) 0.4 MG CAP.SR.24H 0.8 MILLIGRAM ORAL DAILY. APIXABAN (ELIQUIS) 5 MG TAB 5 MILLIGRAM ORAL TWICE DAILY. metFORMIN (GLUCOPHAGE) 850 MG TAB 850 MILLIGRAM ORAL THREE TIMES A DAY. traZODone (DESYREL) 150 MG TAB 150 MILLIGRAM ORAL BEDTIME. amLODIPine (NORVASC) 10 MG TAB 10 MILLIGRAM ORAL DAILY. Instructions: HOLD BP <110/60 OXYBUTYNIN (DITROPAN) 5 MG TAB 5 MILLIGRAM ORAL TWICE DAILY. KETOCONAZOLE (NIZORAL 2%) 120 ML SHAMPOO 1 APPLIC TOPICAL SATURDAY, SATURDAY, SATURDAY. KETOCONAZOLE (NIZORAL 2%) 75 GM CREAM 1 APPLIC TOPICAL DAILY. traZODone (DESYREL) 150 MG TAB 150 MILLIGRAM ORAL BEDTIME. as needed for INSOM VALERIA OMEGA-3 FATTY ACIDS (FISH OIL) 1,000 MG CAP 1,000 MILLIGRAM ORAL DAILY. Start taking the following new medications: FLUTICASONE PROPIONATE (FLONASE 50 MCG/ACT NASAL ) 16 GM SPRAY 1 SPRAY NASAL TWICE DAILY. Days = 30 No Refills DOCUSATE SODIUM (COLACE) 100 MG CAP 100 MILLIGRAM ORAL EVERY 12 HR NEEDED. as ne eded for CONSTIPATION Days = 30 No Refills FAMOTIDINE (PEPCID) 20 MG TAB 20 MILLIGRAM ORAL TWICE DAILY. Days = 30 No Refills Discharge Instructions Diet: cardiac, low fat, low sodium Weight monitor: Weekly Notify provider of these s/s: follow up with pcp in 1-4 days. you must call fo r an appointment. Prescriptions: on chart Discharge management: greater than 30 mins Time spent: Time spent with pt: 35 minutes or more Objective VS/I O Last Documented: Result Date Time Pulse Ox 93 08/10 07 B/P 133/73 08/10 0704 B/P Mean 0.0 08/10 07 Temp 98.2 08/10 0704 Pulse 63 08/10 0704 Resp 18 08/10 0704 O2 Delivery Room air 08/08 1928 24 hour I O ending at 0700: 08/10 0700 08/09 1900 Intake Total 300 Output Total 900 Balance -600 Intake, Oral 300 Output, Urine 900 Patient 94.347 kg Weight Weight Bed scale Measurement Method General appearance: alert, awake, oriented, no a cute distress, pleasant, conversational, mental status normal, no respira tory distress Head/Eyes: atraumatic, EOMI ENT: normal nose, moist mucosal membranes Neck: full range of motion, non-tender, supple/n o meningismus Cardiovascular: normal capillary refill, regular rate rhythm, normal heart sounds Respiratory: clear to auscultation, no distress, no tenderness, aerating well GI: soft, non-tender, no distention Abdomen quadrants: LLQ normal bowel sounds, LUQ normal treasure l sounds, RLQ normal bowel sounds, RUQ normal bowel sounds Genitourinary: not indicated Extremities: moves all, no edema-all extremities , normal capillary refill, normal range of motion, normal sensory, normal m otor function, no evidence of DVT Musculoskeletal: full range of motion, normal in spection Neuro/PRECISION LENS GENERATOR: alert, oriented X 3, normal g ait, normal speech, no motor deficits, no sensory deficits Gordon Coma Score: Timothy Coma Score: Response Value Timothy eyes: eyes open spontaneously 4 Timothy speech: oriented 5 Timothy motor: obeys commands 6 Total 15 Skin: dry, intact Psychiatry: normal affect, normal judgment/insig ht, normal mood Results Findings/Data: Laboratory Tests: 08/10 08/10 08/09 08/09 08/09 0749 0415 2040 1611 1215 Chemistry Sodium (134 - 147 mmol/L) 136 Potassium (3.4 - 5.0 mmol/L) 3.6 Chloride (100 - 108 mmol/L) 101 Carbon Dioxide (21 - 32 mmol/L) 26 Anion Gap (4.0 - 15.0 GAP calc) 9.0 BUN (7 - 18 MG/DL) 12 Creatinine (0.8 - 1.3 MG/DL) 0.9 Glomerular Filtr Rate (>60 >=60 max estimate estGFR) Glucose (70 - 110 MG/DL) 171 H POC Glucose (70 - 110 mg/dL) 191 H 199 H 219 H 185 H Calcium (8.5 - 10.1 MG/DL) 7.9 L Hematology WBC (3.5 - 11.0 K/mm3) 6.5 RBC (4.70 - 6.10 M/mm3) 3.88 L Hgb (12.3 - 15.9 G/DL) 11.3 L Hct (35.8 - 46.7 %) 33.5 L MCV (86.3 - 98.9 Fl) 86.3 MCH (28.9 - 34.4 pg) 29.1 MCHC (32.1 - 34.5 G/DL) 33.7 RDW (11.5 - 14.5 SD) 13.4 Plt Count (150 - 450 K/mm3) 139.0 L MPV (7.0 - 9.6 fL) 11.70 H Neut % (Auto) (40 - 76 %) 65.5 Lymph % (Auto) (20.5 - 51.1 %) 14.0 L Centre % (Auto) (1.7 - 9.3 %) 11.1 H Eos % (Auto) (0.0 - 6.0 %) 8.9 H Baso % (Auto) (0.0 - 2.0 %) 0.5 Neut # (Auto) (1.8 - 7.6 K/mm3) 4.27 Lymph # (Auto) (0.6 - 3.0 0.9 K/mm3) Centre # (Auto) (0.2 - 1.5 K/mm3) 0.7 Eos # (Auto) (0.0 - 0.4 K/mm3) 0.6 H Baso # (Auto) (0.0 - 0.2 K/mm3) 0.0 Add Manual Diff (CRITERIA NO DIFF/SCN) Radiology data: Recent Impressions: CAT SCAN - CT HEAD/BRAIN W/O CONT 08/08 2019 Report Impression - Status: SIGNED Entered: 08/08/20182038 IMPRESSION: No evidence of acute intracranial abnormality. Chronic infarcts within the left parietal and fr ontal lobes. Extra-axial lesion towards the vertex of the lef t frontal lobe measuring 1.7 x 1.2 x 1.2 cm, likely related to a meningioma. If not previously assessed, recommend follow-up with an MRI brain without and with contrast. Impression By: [email or web address] - Hua Anaya M.D. RADIOLOGY - XR CHEST 1 V 08/08 2025 Report Impression - Status: SIGNED Entered: 08/08/20182037 IMPRESSION: Unremarkable portable examination of the chest. Impression By: [email or web address] - Jr Sultana MAGNETIC RESONANCE IMAGING - MRI BRAIN W/O CONTR AST 08/09 1108 Report Impression - Status: SIGNED Entered: 08/09/2018 1156 IMPRESSION: Findings likely reflective a small dural based m eningioma centered laterally along the high convexity left frontal region measuring 2.1 x 2.1 x 1.2 cm in size with minimal local mass eff ect without associated edema. The finding exhibits restriction typical for a meningioma. No other space-occupying process. Doubt other extra -axial lesions accounting for the findings No acute vascular insult. No intracranial hemorr leah. 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 Chr onic microvascular changes elsewhere. Impression By: Wang herron M.D. Recent Impressions: MAGNETIC RESONANCE IMAGING - MRI BRAIN W/O CONTR AST 08/09 1108 Report Impression - Status: SIGNED Entered: 08/09/2018 1156 IMPRESSION: Findings likely reflective a small dural based m eningioma centered laterally along the high convexity left frontal region measuring 2.1 x 2.1 x 1.2 cm in size with minimal local mass eff ect without associated edema. The finding exhibits restriction typical for a meningioma. No other space-occupying process. Doubt other extra -axial lesions accounting for the findings No acute vascular insult. No intracranial hemorr leah. 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 Chr onic microvascular changes elsewhere. Impression By: Wang herron M.D. Results: labs reviewed at 0927 at 1656 RPT #: [id number] END OF REPORT 2018-08-09 12:06:00-00:00 [facility] ([facility]) Neurology Consultation Note REPORT#:[id number] REPORT STATUS: Signed DATE:08/09/18 TIME:1206 PATIENT: FRAN SANTAMARIA UNIT #: [id number] ROOM/BED: [place] [address] : 50 AGE: 67 SEX: M ATTEND: Jacky Gutierrez MD ADM AUTHOR: Romy Marie MD * ALL edits or amendments must be made on the el [facility]/computer document * History of Present Illness Stroke Alert Considered stroke alert: no HPI Requesting clinician: Dr Gutierrez Reason for consult: weakness Chief complaint: weakness HPI: The patient Mr. Santamaria is a 67 years old left-handed male with a past medical history of hypertens ion, diabetes mellitus, atrial fibrillation, history of multiple strokes (reportedly 5 stroke last on e around 2 years ago) with residual right-sided weakness, baseline gait imp airment requiring walker for assistance reportedly had episode of fal l few days ago. Reportedly he has been experiencing sore throat and fever for past 3-4 days. He was feeling weak all over however he denies any focal weaknes s. Patient has history of left frontal meningioma that was found around 5 years ago. No facial droop. No speech abnormality. Patient admits to having uncontroll ed blood sugars. Patient was also found to have acute renal failure o n admission. No speech abnormality. No headaches. No vision changes. No new numbness or weakness. He reports feeling weak all over. History - Adult longitudinal Past medical history: Reports: Atrial fib/flutter, Diabetes mellitus, Hypertension, Ischemic stroke (5 ). 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 Ambulatory status: Independent Review of Systems Systems reviewed negative: allergy/Immun, cardio vascular, constitutional, endocrine, ENT, eyes, GI, , heme, musculoskeletal, neuro, psych, respiratory, skin Objective Physical Exam VS: Last Documented: Result Date Time Pulse Ox 95 08/09 734 B/P 130/72 08/09 734 B/P Mean 91.1 08/09 734 Temp 36.9 08/09 734 Pulse 61 08/09 734 Resp 18 08/09 734 O2 Delivery Room air 08/08 1927 Medications: Current Home Medications CITALOPRAM (CeleXA) 10 MG PO DAILY HYDROCHLOROTHIAZIDE (HCTZ) 12.5 MG PO DAILY SAXAGLIPTIN (ONGLYZA) 5 MG PO DAILY ASCORBIC ACID (VITAMIN C) 500 MG PO DAILY ATORVASTATIN (LIPITOR) 40 MG PO BEDTIME FINASTERIDE (PROSCAR) TAMSULOSIN ER (FLOMAX) 0.8 MG PO DAILY APIXABAN (ELIQUIS) 5 MG PO BID metFORMIN (GLUCOPHAGE) 850 MG PO TID traZODone (DESYREL) 150 MG PO BEDTIME amLODIPine (NORVASC) 10 MG PO DAILY OXYBUTYNIN (DITROPAN) 5 MG PO BID KETOCONAZOLE (NIZORAL 2%) 1 APPLIC TOPICAL MOWEF R KETOCONAZOLE (NIZORAL 2%) 1 APPLIC TOPICAL DAILY traZODone (DESYREL) 150 MG PO BEDTIME PRN INSOMN IA OMEGA-3 FATTY ACIDS (FISH OIL) 1,000 MG PO DAILY Active Meds + DC'd Last 24 Hrs Trazodone HCl 150 MG BEDTIME PO (CKD) Atorvastatin Calcium 40 MG DAILY 1700 PO Insulin Human Lispro S/SCALE LOW AC HS SUBQ Dextrose/Water 50 ML ASDIR PRN IV Amlodipine Besylate 10 MG DAILY PO Apixaban 5 MG BID PO (CKD) Ascorbic Acid 500 MG DAILY PO Finasteride 5 MG DAILY PO Hydrochlorothiazide 12.5 MG DAILY PO Oxybutynin Chloride 5 MG BID PO (CKD) Tamsulosin HCl 0.8 MG DAILY PO Al Hydrox/Mg Hydrox/Simethicone 30 ML ONCE PO (D C) Trazodone HCl 150 MG BEDTIME PRN PO Acetaminophen 650 MG Q4H PRN PRN PO Docusate Sodium 100 MG Q12H PRN PRN PO Hydrocodone Bitart/Acetaminophen 1 TAB Q4H PRN P RN PO Hydrocodone Bitart/Acetaminophen 1 TAB Q4H PRN P RN PO Ondansetron HCl 4 MG Q4H PRN PRN IV Acetaminophen 650 MG X1ED STA PO (DC) Guaifenesin 200 MG X1ED STA PO (DC) General appearance: alert, awake, oriented, no a cute distress Head/Eyes: atraumatic, clear cornea ENT: moist mucosal membranes Neck: full range of motion Cardiovascular: irregular rate and rhythm Respiratory: aerating well, no distress Extremities: moves all, pulses present, no edema Musculoskeletal: full range of motion Speech Speech: normal Mental Status Orientation: Yes: to time, to place, to person, to situation. LOC: alert Cranial Nerves Cranial nerves: Normal: II, III, IV, V, , VII, VIII, IX, X, XI , XII. Sensory Exam Sensory: Normal: light touch. Motor Testing Motor testing 1: Normal: bulk, tone, fine movements, strength. Cerebellar Test Cerebellar test: Normal R finger/nose/finger, Normal L finger/nos e/finger, Normal R heel/knee/ ramirez, Normal L heel/knee/ramirez, Normal R alt rapid movement, Normal L alt rapid movement Reflexes Plantar reflexes: Up: Right. Gait Gait comments: walks with a walker Results Findings/Data: Laboratory Tests 08/09 08/08 08/08 0713 9910 2008 Chemistry Sodium (134 - 147 mmol/L) 135 Potassium (3.4 - 5.0 mmol/L) 4.0 Chloride (100 - 108 mmol/L) 100 Carbon Dioxide (21 - 32 mmol/L) 24 Anion Gap (4.0 - 15.0 GAP calc) 11.0 BUN (7 - 18 MG/DL) 10 Creatinine (0.8 - 1.3 MG/DL) 1.4 H Glomerular Filtr Rate (>60 estGFR) 54 L Glucose (70 - 110 MG/DL) 238 H POC Glucose (70 - 110 mg/dL) 170 H 207 H Calcium (8.5 - 10.1 MG/DL) 8.0 L Magnesium (1.8 - 2.4 MG/DL) 1.6 L Total Bilirubin (0.2 - 1.2 MG/DL) 0.60 AST (15 - 37 Unit/L) 22 ALT (12 - 78 Unit/L) 39 Total Alk Phosphatase (50 - 136 Unit/L) 75 Troponin I (0.000 - 0.045 NG/ML) 0.023 NT-Pro-B Natriuret Pep (0 - 100 PG/ML) 559 H Total Protein (6.4 - 8.2 G/DL) 6.9 Albumin (3.4 - 5.0 G/DL) 3.3 L Globulin (GM/dL) 3.6 Albumin/Globulin Ratio (1.2 - 2.2 RATIO) 0.9 L Laboratory Tests 08/08 2008 Hematology WBC (3.5 - 11.0 K/mm3) 11.8 H RBC (4.70 - 6.10 M/mm3) 4.14 L Hgb (12.3 - 15.9 G/DL) 12.3 Hct (35.8 - 46.7 %) 36.4 MCV (86.3 - 98.9 Fl) 87.9 MCH (28.9 - 34.4 pg) 29.7 MCHC (32.1 - 34.5 G/DL) 33.8 RDW (11.5 - 14.5 SD) 13.4 Plt Count (150 - 450 K/mm3) 146.0 L MPV (7.0 - 9.6 fL) 10.60 H Neut % (Auto) (40 - 76 %) 85.3 H Lymph % (Auto) (20.5 - 51.1 %) 4.8 L Centre % (Auto) (1.7 - 9.3 %) 8.6 Eos % (Auto) (0.0 - 6.0 %) 1.0 Baso % (Auto) (0.0 - 2.0 %) 0.3 Neut # (Auto) (1.8 - 7.6 K/mm3) 10.02 H Lymph # (Auto) (0.6 - 3.0 K/mm3) 0.6 Centre # (Auto) (0.2 - 1.5 K/mm3) 1.0 Eos # (Auto) (0.0 - 0.4 K/mm3) 0.1 Baso # (Auto) (0.0 - 0.2 K/mm3) 0.0 Add Manual Diff (CRITERIA DIFF/SCN) NO Radiology Data: Recent Impressions: CAT SCAN - CT HEAD/BRAIN W/O CONT 08/08 2019 Report Impression - Status: SIGNED Entered: 08/08/20182038 IMPRESSION: No evidence of acute intracranial abnormality. Chronic infarcts within the left parietal and fr ontal lobes. Extra-axial lesion towards the vertex of the lef t frontal lobe measuring 1.7 x 1.2 x 1.2 cm, likely related to a meningioma. If not previously assessed, recommend follow-up with an MRI brain without and with contrast. Impression By: [email or web address] - Hua Anaya M.D. RADIOLOGY - XR CHEST 1 V 08/08 2025 Report Impression - Status: SIGNED Entered: 08/08/20182037 IMPRESSION: Unremarkable portable examination of the chest. Impression By: [email or web address] - Jr Sultana [facility] - MRI BRAIN W/O CONTR AST 08/09 1108 Report Impression - Status: SIGNED Entered: 08/09/2018 1156 IMPRESSION: Findings likely reflective a small dural based m eningioma centered laterally along the high convexity left frontal region measuring 2.1 x 2.1 x 1.2 cm in size with minimal local mass eff ect without associated edema. The finding exhibits restriction typical for a meningioma. No other space-occupying process. Doubt other extra -axial lesions accounting for the findings No acute vascular insult. No intracranial hemorr leah. 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 Chr onic microvascular changes elsewhere. Impression By: [email or web address] - Daina herron M.D. Results: labs reviewed, vital signs stable, CT p ersonally reviewed, MRI personally reviewed, current med profile rev'd Diagnosis, Assessment Plan Free Text A P: 1. weakness - Possible recrudescence of stroke s ymptoms in setting of acute renal failure, uncontrolled hyperglycemia, recen t URTI 2. Hypertension 3. Diabetes mellitus 4. Atrial fibrillation 5. Acute renal failure 6. Chronic left frontal stroke/reported history of multiple strokes 7. Recent URTI 8. Left frontal meningioma PLAN: Telemetry. Reviewed CT scan of head and MRI brain images. Continue with current medications. Check fasting lipid profile. Advised better hydration. IV fluids per primary team. PT and OT evaluation. Fall precautions. DVT prophylaxis. Neurology to follow. Plan was discussed with the patient and primary team. Thank you very much for the consult. at 1758 RPT #: [id number] END OF REPORT 2018-08-09 09:35:00-00:00 [facility] ([facility]) History Physical - Adult REPORT#:[id number] REPORT STATUS: Signed DATE:08/09/18 TIME:934 PATIENT: FRAN SANTAMARIA UNIT #: [id number] ROOM/BED: [place] [id number] : 50 AGE: 67 SEX: M ATTEND: Jacky Gutierrez MD ADM AUTHOR: Cheikh Gutierrez MD * ALL edits or amendments must be made on the [employer]/computer document * History of Present Illness HPI Chief complaint: Seizure HPI: 67yo WM with PMH of HTN, DM, AFib, and CVA (with residual R leg weakness) s/p fall. Preceded by worsening RLE weakness . Also with sore throat and productive cough x 4 days. No exacerbat ing or alleviating factors. Of note, Pt states that both legs "gave out" 6 weeks ago and was unable to walk; was not sent to ER for evaluation at that time. Denies pain, back pain, n/v, dizziness, numbness, tingling and SOB. History Past medical history: Reports: Atrial fib/flutter, Diabetes mellitus, Hypertension, Ischemic stroke (5 ). Additional surgical history: No previous PSH Family history: Reports: Hypertension. 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 Ambulatory status: Independent Review of Systems Additional notes: All the 14 point review systems negative except for those mentioned H Physical Exam VS/I O Vital Signs: Date Time Temp Pulse Resp B/P B/P Pulse O2 O2 F low FiO2 Mean Ox Delivery Rate 08/09 734 98.4 61 18 130/72 91.1 95 08/09 0310 98.6 65 20 153/72 99.1 93 08/09 0005 99.7 65 19 100/56 71.1 93 08/08 2234 99.7 87 18 145/66 92.5 96 08/08 1928 100.4 87 17 141/65 90 97 Room air 24 hour I O ending at 0700: 08/09 0700 08/08 1900 Intake Total Output Total 200 Balance -200 Output, Urine 200 Patient 208 lb Weight Weight Bed scale Measurement Method General appearance: alert, awake Head/Eyes: atraumatic, normocephalic ENT: dry mucosal membrane Neck: supple/no meningismus Cardiovascular: regular rate rhythm, normal hear t sounds Respiratory: aerating well, symmetric expansion Abdomen/GI: soft, no mass/organomegaly Genitourinary: no bladder distension Extremities: decreased range of motion, no perip heral edema Musculoskeletal: decreased ROM Neuro/PRECISION LENS GENERATOR: alert Skin: dry, no rash Lymphatic: no lymphadenopathy Results Findings/Data: Laboratory Tests: 08/09 Chemistry Sodium (134 - 147 mmol/L) 135 Potassium (3.4 - 5.0 mmol/L) 4.0 Chloride (100 - 108 mmol/L) 100 Carbon Dioxide (21 - 32 mmol/L) 24 Anion Gap (4.0 - 15.0 GAP calc) 11.0 BUN (7 - 18 MG/DL) 10 Creatinine (0.8 - 1.3 MG/DL) 1.4 H Glomerular Filtr Rate (>60 estGFR) 54 L Glucose (70 - 110 MG/DL) 238 H POC Glucose (70 - 110 mg/dL) 170 H 207 H Calcium (8.5 - 10.1 MG/DL) 8.0 L Magnesium (1.8 - 2.4 MG/DL) 1.6 L Total Bilirubin (0.2 - 1.2 MG/DL) 0.60 AST (15 - 37 Unit/L) 22 ALT (12 - 78 Unit/L) 39 Total Alk Phosphatase (50 - 136 Unit/L) 75 Troponin I (0.000 - 0.045 NG/ML) 0.023 NT-Pro-B Natriuret Pep (0 - 100 PG/ML) 559 H Total Protein (6.4 - 8.2 G/DL) 6.9 Albumin (3.4 - 5.0 G/DL) 3.3 L Globulin (GM/dL) 3.6 Albumin/Globulin Ratio (1.2 - 2.2 RATIO) 0.9 L Hematology WBC (3.5 - 11.0 K/mm3) 11.8 H RBC (4.70 - 6.10 M/mm3) 4.14 L Hgb (12.3 - 15.9 G/DL) 12.3 Hct (35.8 - 46.7 %) 36.4 MCV (86.3 - 98.9 Fl) 87.9 MCH (28.9 - 34.4 pg) 29.7 MCHC (32.1 - 34.5 G/DL) 33.8 RDW (11.5 - 14.5 SD) 13.4 Plt Count (150 - 450 K/mm3) 146.0 L MPV (7.0 - 9.6 fL) 10.60 H Neut % (Auto) (40 - 76 %) 85.3 H Lymph % (Auto) (20.5 - 51.1 %) 4.8 L Centre % (Auto) (1.7 - 9.3 %) 8.6 Eos % (Auto) (0.0 - 6.0 %) 1.0 Baso % (Auto) (0.0 - 2.0 %) 0.3 Neut # (Auto) (1.8 - 7.6 K/mm3) 10.02 H Lymph # (Auto) (0.6 - 3.0 K/mm3) 0.6 Centre # (Auto) (0.2 - 1.5 K/mm3) 1.0 Eos # (Auto) (0.0 - 0.4 K/mm3) 0.1 Baso # (Auto) (0.0 - 0.2 K/mm3) 0.0 Add Manual Diff (CRITERIA DIFF/SCN) NO Radiology data: Recent Impressions: CAT SCAN - CT HEAD/BRAIN W/O CONT 08/08 2019 Report Impression - Status: SIGNED Entered: 08/08/20182038 IMPRESSION: No evidence of acute intracranial abnormality. Chronic infarcts within the left parietal and fr ontal lobes. Extra-axial lesion towards the vertex of the lef t frontal lobe measuring 1.7 x 1.2 x 1.2 cm, likely related to a meningioma. If not previously assessed, recommend follow-up with an MRI brain without and with contrast. Impression By: [email or web address] - Hua Anaya M.D. RADIOLOGY - XR CHEST 1 V 08/08 2025 Report Impression - Status: SIGNED Entered: 08/08/20182037 IMPRESSION: Unremarkable portable examination of the chest. Impression By: [email or web address] - Jr Sultana Diagnosis, Assessment Plan Free Text A P: Generalized weakness Acute kidney injury Hypertension Hyperlipidemia Atrial fibrillation Chronic left frontal stroke with history of mult iple strokes in the past Left frontal meningioma Plan We will get an MRI to rule out any acute CVA and status of meningioma Monitor renal parameters Start on IV fluids Neurology consult Continue home medications and titrate as needed Discussed with family Possible DC in a.m. if workup is negative GI/DVT prophylaxis Advanced directive: Full code at 1809 RPT #: [id number] END OF REPORT 2018-08-08 19:56:00-00:00 [facility] ([facility]) EMERGENCY PROVIDER REPORT REPORT#:[id number] REPORT STATUS: Signed DATE:08/08/18 TIME:1955 PATIENT: FRAN SANTAMARIA UNIT #: [id number] ROOM/BED: [address]1 : 50 AGE: 67 SEX: M PCP PHYS: DOES_NOT KNOW SERVICE AUTHOR: Crissy Anders MD * ALL edits or amendments must be made on the el [employer]ronic/computer document * HPI-Trauma Minor/Fall General Confirmed Patient Yes Patient Type New patient Initial Greet Date/Time 08/08/18 192 Presentation Chief Complaint Fall Hx Obtained From Patient Onset Occurred Today Symptom Duration Since onset Progression since Onset Resolved Caused by Accidental Timing of Trauma Date of Trauma 08/08/18 Time of Trauma 1700 Context: Occurred at Home injury Severity: Current No pain currently Associated Other productive cough and sore throa t Exacerbated by Nothing Context Immunization Status General Unknown Recent Healthcare No recent doctor visit, No rec ent hospitalization Similar Sx Previous Yes (6 weeks prior) Free Text HPI Notes Free Text HPI Notes 67yo WM with PMH of HTN, DM, AFib, and CVA (with residual R leg weakness) s/p fall. Preceded by worsening RLE weakness . Also with sore throat and productive cough x 4 days. No exacerbat ing or alleviating factors. Of note, Pt states that both legs "gave out" 6 weeks ago and was unable to walk; was not sent to ER for evaluation at that time. Denies pain, back pain, n/v, dizziness, numbness, tingling and SOB. Portions of this section peewee tran scribed by Cecile Pruett on 08/08/18 at 2144 Review of Systems ROS Statements All systems rev neg except as marked. Focused Review of Systems Constitutional Denies: Chills, Fever. Eyes Denies: Blurred bilat, Visual loss bilat. Ears/Nose/Throat Reports: Sore throat. Denies: Earache bilat. Respiratory Reports: Cough, productive. Denies: Cough, non-productive, Dyspnea on exertion, Shortness of breath. Musculoskeletal Denies: Back pain, Extremity pain, Joint pain, Lumbar pain, Myalgia, Neck pain, Thoracic pain. Skin Denies: Rash, Swelling. Neurologic Reports: Focal weakness (right LE ). Denies: Num bness, Tingling. Additional Review of Systems Cardiovascular Denies: Chest pain, Dyspnea on exertion, Edema. GI Denies: Abdominal pain, Constipation, Diarrhea, Nausea, Vomiting. Male Denies: Dysuria, Hematuria. Hematologic Denies: Bleeding, Bruising. Allergy/Immun Denies: Hives, Itching, Rhinorrhea. Portions of this section peewee tran scribed by Cecile Pruett on 08/08/18 at 2014 Past Medical History - Adult Stated Complaint FALL Allergies Coded Allergies: No Known Allergies (08/08/18) Home Medications Reported Medications Unable to Obtain Home Medication History Review of Nursing Notes Rev avail, and agree Pt reports no significant: Past surgical history Past Medical History: Reports: Atrial fib/flutter, Diabetes mellitus, Hypertension, Ischemic stroke (5 ). 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 Ambulatory Status Independent Portions of this section wer e scribed by Cecile Pruett on 08/08/18 at 1956 Physical Exam Vital Signs Vital Signs First Documented: Result Date Time Pulse Ox 97 08/08 1927 B/P 141/65 08/08 1927 B/P Mean 90 08/08 1927 O2 Delivery Room air 08/08 1927 Temp 100.4 08/08 1927 Pulse 87 08/08 1927 Resp 17 08/08 1927 Last Documented: Result Date Time Pulse Ox 97 08/08 1927 B/P 141/65 08/08 1927 B/P Mean 90 08/08 1927 O2 Delivery Room air 08/08 1927 Temp 100.4 08/08 1927 Pulse 87 08/08 1927 Resp 17 08/08 1927 Review of Vital Signs Reviewed Focused PE General/Const General/Const Awake, Alert, No acute distress, Well appearing, Cooperative MS Head Head Atraumatic, Normocephalic Eyes Eyes Atraumatic, PERRL, EOMI, No nystagmus Ears/Nose/Throat Ears/Nose/Throat Atraumatic, Airway patent, Muc ous membranes moist MS Neck Neck Atraumatic, Supple, No meningismus Resp/Chest Respiratory/Chest Atraumatic, Breath sounds NL, Breath sounds = bilat, No respiratory distress, No rales, No rhonchi, No w heezing Cardiovascular Cardiovascular Heart rate NL, Regular rhythm, H eart sounds NL, No gallop, No murmurs, No rubs Abdomen/GI Abdomen/GI Atraumatic, Soft, Non-tender, No gua rding, No rebound MS Back Back Atraumatic, Inspection NL, Full range of m otion, Painless range of motion, Non-tender MS Lower Extrem Lower Ext/Pelvis/MS Atraumatic, Inspection NL, Full range of motion, No swelling, Non-tender, No erythema, No deformity Skin Skin Atraumatic, Color NL, Warm, Dry, Intact Neurologic Neurologic Oriented X3, Speech NL, No motor def icits, No sensory deficits Portions of this section peewee tran scribed by Cecile Pruett on 08/08/18 at 2144 Interpretation Diagnostics Lab Results Interpretation Results Laboratory Tests 08/08/18 2009: [Embedded Image Not Available] Laboratory Tests: 08/08 2008 Chemistry Sodium (134 - 147 mmol/L) 135 Potassium (3.4 - 5.0 mmol/L) 4.0 Chloride (100 - 108 mmol/L) 100 Carbon Dioxide (21 - 32 mmol/L) 24 Anion Gap (4.0 - 15.0 GAP calc) 11.0 BUN (7 - 18 MG/DL) 10 Creatinine (0.8 - 1.3 MG/DL) 1.4 H Glomerular Filtr Rate (>60 estGFR) 54 L Glucose (70 - 110 MG/DL) 238 H Calcium (8.5 - 10.1 MG/DL) 8.0 L Magnesium (1.8 - 2.4 MG/DL) 1.6 L Total Bilirubin (0.2 - 1.2 MG/DL) 0.60 AST (15 - 37 Unit/L) 22 ALT (12 - 78 Unit/L) 39 Total Alk Phosphatase (50 - 136 Unit/L) 75 Troponin I (0.000 - 0.045 NG/ML) 0.023 NT-Pro-B Natriuret Pep (0 - 100 PG/ML) 559 H Total Protein (6.4 - 8.2 G/DL) 6.9 Albumin (3.4 - 5.0 G/DL) 3.3 L Globulin (GM/dL) 3.6 Albumin/Globulin Ratio (1.2 - 2.2 RATIO) 0.9 L Hematology WBC (3.5 - 11.0 K/mm3) 11.8 H RBC (4.70 - 6.10 M/mm3) 4.14 L Hgb (12.3 - 15.9 G/DL) 12.3 Hct (35.8 - 46.7 %) 36.4 MCV (86.3 - 98.9 Fl) 87.9 MCH (28.9 - 34.4 pg) 29.7 MCHC (32.1 - 34.5 G/DL) 33.8 RDW (11.5 - 14.5 SD) 13.4 Plt Count (150 - 450 K/mm3) 146.0 L MPV (7.0 - 9.6 fL) 10.60 H Neut % (Auto) (40 - 76 %) 85.3 H Lymph % (Auto) (20.5 - 51.1 %) 4.8 L Centre % (Auto) (1.7 - 9.3 %) 8.6 Eos % (Auto) (0.0 - 6.0 %) 1.0 Baso % (Auto) (0.0 - 2.0 %) 0.3 Neut # (Auto) (1.8 - 7.6 K/mm3) 10.02 H Lymph # (Auto) (0.6 - 3.0 K/mm3) 0.6 Centre # (Auto) (0.2 - 1.5 K/mm3) 1.0 Eos # (Auto) (0.0 - 0.4 K/mm3) 0.1 Baso # (Auto) (0.0 - 0.2 K/mm3) 0.0 Add Manual Diff (CRITERIA DIFF/SCN) NO Microbiology: Date/Time Procedure - Status Source Growth 08/08 2151 MRSA Screen - ORD NASAL Recent Impressions: CAT SCAN - CT HEAD/BRAIN W/O CONT 08/08 2019 Report Impression - Status: SIGNED Entered: 08/08/20182038 IMPRESSION: No evidence of acute intracranial abnormality. Chronic infarcts within the left parietal and fr ontal lobes. Extra-axial lesion towards the vertex of the lef t frontal lobe measuring 1.7 x 1.2 x 1.2 cm, likely related to a meningioma. If not previously assessed, recommend follow-up with an MRI brain without and with contrast. Impression By: [email or web address] - Hua Anaya M.D. RADIOLOGY - XR CHEST 1 V 08/08 2025 Report Impression - Status: SIGNED Entered: 08/08/20182037 IMPRESSION: Unremarkable portable examination of the chest. Impression By: [email or web address] - Jr Sultana Lab Imaging Statement Laboratory radiographic studies reviewed and con sidered in the medical decision-making. Point of Care Testing Pulse Oximetry Pulse Ox % 97 On: Room air Interpretation Interpreted by ga Time 1928 ECG #1 Interpretation ECG Documented in MUSE Yes Date 08/08/18 Time 1935 Interpreted by ED physician NL ECG Interpretation Normal rate, Normal sinus rhythm, No STEMI, Normal axis Rate 88 Conduction/[place] RBBB - incomplete Portions of this section peewee tran scribed by Cecile Pruett on 08/08/18 at 2144 Re-Evaluation MDM Free Text MDM Notes Free Text MDM Notes A/P: 67yo WM with PMH as above p/w RLE weakness and fall 1. Labs 2. CT-head 3. CXR 4. Meds 5. Re-assess ADDENDUM Time: Pt re-assessed; symptoms improved. Results of wo rk-up d/w Pt; voiced understanding. OK for DC home with PCP follow-up . Re-Evaluation/Progress #1 Time of Re-Eval 2124 Re-Eval Status Improved Plan Post Re-Eval Plan admit ED Course Medication(s) Ordered Medication(s) Ordered: Central Nervous System Agents Sig/Manuel Start time Last Medication Dose Route Stop Time Status Admin Acetaminophen 650 MG Q4H PRN PRN 08/08 2200 AC PO 09/07 2159 Hydrocodone Bitart/ 1 TAB Q4H PRN PRN 08/08 220 0 AC Acetaminophen PO 08/18 2158 Hydrocodone Bitart/ 1 TAB Q4H PRN PRN 08/08 220 0 AC Acetaminophen PO 08/18 2158 Acetaminophen 650 MG X1ED STA 08/08 2125 DC PO 08/08 2126 2207 Gastrointestinal Drugs Sig/Manuel Start time Last Medication Dose Route Stop Time Status Admin Docusate Sodium 100 MG Q12H PRN PRN 08/08 2200 AC PO 09/07 215 Ondansetron HCl 4 MG Q4H PRN PRN 08/08 2200 AC IV 09/07 2159 Respiratory Tract Agents Sig/Manuel Start time Last Medication Dose Route Stop Time Status Admin Guaifenesin 200 MG X1ED STA 08/08 2012 DC 08/08 PO 08/08 Differential Diagnosis Differential Diagnosis TIA, Mechanical Fall Portions of this section peewee tran scribed by Cecile Pruett on 08/08/18 at 2144 Patient Discharge Departure Vital Signs/Condition Vital Signs First Documented: Result Date Time Pulse Ox 97 08/08 1927 B/P 141/65 08/08 1927 B/P Mean 90 08/08 1927 O2 Delivery Room air 08/08 1927 Temp 100.4 08/08 1927 Pulse 87 08/08 1927 Resp 17 08/08 1927 Last Documented: Result Date Time Pulse Ox 97 08/08 1927 B/P 141/65 08/08 1927 B/P Mean 90 08/08 1927 O2 Delivery Room air 08/08 1927 Temp 100.4 08/08 1927 Pulse 87 08/08 1927 Resp 17 08/08 1927 All vital signs available at the time of this en try have been reviewed. Condition Stable Clinical Impression Clinical Impression Primary Impression: TIA (transient ischemic heather ck) Secondary Impressions: Fall, Right leg weakness Disposition Decision Admit Admit Physician Name Cheikh Gutierrez MD Admit Physician Hospitalist Request Time 2125 Request Date 08/08/18 )( Admission Accepts Yes )( Accepted Time 2125 )( Accepted Date 08/08/18 Call Information will see patient Discharge/Care Plan Counseled Regarding Diagnosi s, Lab results, Imaging studies, Need for admission Admit Note I have spoken with the patie nt and/or caregivers. I have explained the patient's condition, diagnoses and freedom atment plan based on the information available to me at this time. I have answered the patient's and/ or caregiver's questions and addressed any concerns. The patient and/or careg loren have as good an understanding of the patient 's diagnosis, condition and treatment plan as can be expected at this point. The patient has been stabilized within the capability of the emergency department. The patient wi ll be transported for further care and management or will be moved to an observation or inpatient service. I have communicated with the staff or medical p ractitioner taking over this patient's care. Quality Measures BP F/U for HTN Pre-existing HTN Smoking Cessation Screened, tobacco user, Screen ed, non user Supervising Physician Note Scribe Statement Cecile Pruett, 08/08/181955, scribing for and in the presence of [Dr. Anders]. Signed By: Cecile Pruett, 08/08/181955 Provider Scribed Statement I personally performed the s ervices described in this documentation and reviewed the documentation that was dictated to the scrib e(s) in my presence, and it accurately records my words and actions. Crissy Luong, 08/08/18 Portions of this section wer e scribed by Cecile Pruett on 08/08/18 at 2144 at 7829 RPT #: [id number] END OF REPORT 2018-08-08 19:30:00-00:00 [id number] [facility] [id number] [place] [id number] PATIENT NAME: FRAN SANTAMARIA ADMIT DATE: ACCOUNT NO: [id number] [facility]GE[facility] 67 REPORT TYPE: eELECTROCARDIOGRAM SEX: M ADMITTING PHYSICIAN: Cheikh Gutierrez MD ATTENDING PHYSICIAN: Cheikh Gutierrez MD Order: [id number] Test Reason : (Not Selected) Test Date/Time Stamp: SatAug 08 2018 19:30:24 Blood Pressure : 128/080 mmHG Vent. Rate : 088 BPM Atrial Rate : 091 BPM P-R Int : 000 ms QRS Dur : 100 ms QT Int : 376 ms P-R-T Axes : 000 -03 006 degree s QTc Int : 454 ms Normal sinus rhythm Incomplete right bundle branch block Borderline ECG No previous ECGs available Confirmed by AMANDA BONNER MD ([id number]) on 08/12/19 3:34:46 PM Referred By: Self Referred Confirmed by:AMANDA HUNT MD at 7025 PATIENT NAME: FRAN SANTAMARIA [id number]
[2023-01-11 11:12] LABS: Absolute Lymphocytes (CBC) 0.5 K/uL (0.7-4.9); Hematocrit 29.3 % (39.6-49.0); Lymphocytes % 12.5 % (15.3-44.8); MCV 74.7 fL (80-100); MPV 9.7 fL (7.6-11.3); RBC Red Blood Cell Count 3.91 M/uL (4.33-5.43)
--- NOTE | 2023-01-11 11:13 | RAD REPORT ---
EXAM DESCRIPTION: CT - Ct Stroke Brain Wo Cont - 01/11/2023 11:03 am CLINICAL HISTORY: STROKE ALERT COMPARISON: Head Brain Wo Cont dated 07/20/2016 TECHNIQUE: Noncontrast head CT images ad were obtained without IV contrast. Multiplanar reformats we re generated and reviewed. All CT scans are performed using dose optimization technique as appropriate and may include automated exposure control or mA/KV adjustment according to patient size. FINDINGS: Right inferior cerebellar hypoattenuation new since the prior exam, suggestive of subacute to chronic ischemia. No intracranial hemorrhage, mass, or edema. Midline structures are unremarkable . Stable ventricular caliber with moderate diffuse parenchymal volume loss. Patchy deep white matter hy poattenuation, nonspecific, most suggestive of chronic small vessel ischemic changes. Stable cystic encephalomalacia in the parasagittal left frontoparietal region. Stable 2 centimeter ex tra-axial high left frontal convexity 2 centimeter soft tissue density mass. No abnormal extra-axial fluid collections. Mastoid air cells and visualized portions of the paranasal sinuses are clear. No acute bony findings. IMPRESSION: Right inferior cerebellar hypoattenuation suggestive of subacute to chronic is scheme. Cystic encephalomalacia in the parasagittal left frontoparietal region, stable, suggesting sequelae o f remote ischemia. Stable soft tissue density extra-axial high left frontal convexity 2 centimeter mass, most compatible with a meningioma. The findings were communicated to Arnulfo Mendez on 01/11/2023 at 11:07 hours.
--- NOTE | 2023-01-11 11:27 | RAD REPORT ---
EXAM DESCRIPTION: CT - Head angio - 01/11/2023 10:54 am CLINICAL HISTORY: APHASIA COMPARISON: Ct Stroke Brain Wo Cont dated 01/11/2023; Head Brain Wo Cont dated 07/20/2016 TECHNIQUE: Axial CT angiography images of the head was performed with multiplanar and maximum intens ity projection reconstructions. Images performed following intravenous administration of 100 mL Isovu e 370. All CT scans are performed using dose optimization technique as appropriate and may include automated exposure control or mA/KV adjustment according to patient size. FINDINGS: No evidence of large vessel occlusion. No evidence of aneurysm or dissection flap is detec ventura. No flow-limiting stenosis or vascular malformation identified. Up to moderate atherosclerotic c alcifications along the carotid siphons bilaterally. Antegrade flow is seen in the vertebral arteries. The vertebral arteries are codominant. The visualized dural venous sinuses are grossly patent. IMPRESSION: No evidence of large vessel occlusion or flow-limiting stenosis.
[2023-01-11 11:31] LABS: Albumin 3.1 g/dL (3.4-5.0); Bilirubin Direct 0.2 mg/dL (0-0.2); Bilirubin Indirect, Calculated 0.2 mg/dL (0.2-0.8); Bilirubin Total 0.4 mg/dL (0.2-1.0); Magnesium 1.7 mg/dL (1.6-2.4); Potassium 4.4 mEq/L (3.5-5.1); Protein, Total 7.4 g/dL (6.4-8.2)
--- NOTE | 2023-01-11 11:31 | RAD REPORT ---
EXAM DESCRIPTION: CT - Neck Angio - 01/11/2023 10:55 am CLINICAL HISTORY: cva COMPARISON: Head angio dated 01/11/2023; Ct Stroke Brain Wo Cont dated 01/11/2023 TECHNIQUE: Axial CT angiography images of the head was performed with multiplanar and maximum intens ity projection reconstructions. Images performed following intravenous administration of 100mL Isovue 370. All CT scans are performed using dose optimization technique as appropriate and may include automated exposure control or mA/KV adjustment according to patient size. Quantification of carotid stenosis, if any, is performed according to NASCET criteria. FINDINGS: A left aortic arch is identified with normal three vessel configuration of the great vesse ls. No significant flow abnormality is seen of the common carotid bilaterally. No significant stenosis is identified involving the cervical segments of both internal carotid arteri es. The left vertebral artery is patent throughout. The right vertebral artery shows moderate to severe n arrowing at the origin, with calcific plaque. The vessel is non dominant, demonstrating multifocal mi ld to moderate narrowing along the distal V2 segment, and moderate to severe narrowing with luminal i rregularity along the mid to distal V3 segment. IMPRESSION: Multifocal up to severe narrowing at the origin, distal V2 segment, and mid to distal V3 segment of the nondominant right vertebral artery. No significant flow abnormality of the remainder of the neck vessels is identified. CAROTID STENOSIS REFERENCE USING NASCET CRITERIA: % ICA stenosis = (1 - narrowest ICA diameter/diameter of distal cervical ICA) x 100. Mild - <50% stenosis. Moderate - 50-69% stenosis. Severe - 70-94% stenosis. Near occlusion - 95-99% stenosis. Occluded - 100% stenosis.
--- NOTE | 2023-01-11 11:48 | RAD REPORT ---
[facility] 11:30 am CLINICAL HISTORY: cva COMPARISON: Chest Single View dated 07/20/2016 TECHNIQUE: Portable AP view of the chest. FINDINGS: The lungs are clear. No pneumothorax or effusion. The cardiomediastinal contours are unre markable. IMPRESSION: No acute cardiopulmonary process.
--- NOTE | 2023-01-11 11:57 | EDPHYS ---
Physician Documentation [facility] Name: Luis Antonio Santamaria Age: 72 yrs Sex: Male : 1950 Arrival Date: 01/11/2023 Time: 10:27 Bed 14 Private MD: ED Physician Sanjay Sneed HPI: 01/11 10:36 This 72 yrs old Male presents to ER via EMS with complaints of Slurred Speech, General rt Weakness. 10:36 Patient with history of prior CVA with residual right-sided deficits presents to the ED rt with reported slurred speech and word finding difficulty from the fpc. The patient was last known normal last night, woke up with the symptoms. Patient states that he does not feel appreciably weaker compared to previous, states that he does not believe that he has any speech difficulties. Denies other acute complaints at this time, symptoms are moderate in severity, no other aggravating or alleviating factors.. Historical: - Allergies: 10:30 No Known Allergies; eh3 - PMHx: 10:30 BRAIN TUMOR; CVA x4; Hyperlipidemia; Hypertension; Myocardial infarction; PVD; eh3 - Immunization history:: Adult Immunizations up to date. - Social history:: Smoking status: Patient/guardian denies using tobacco, the patient reports quitting approximately 15 years ago, Patient/guardian denies using alcohol. - Family history:: not pertinent. ROS: 10:36 Constitutional: Negative for fever, chills, and weight loss, Eyes: Negative for injury, rt pain, redness, and discharge, Cardiovascular: Negative for chest pain, palpitations, and edema, Respiratory: Negative for shortness of breath, cough, wheezing, and pleuritic chest pain, Abdomen/GI: Negative for abdominal pain, nausea, vomiting, diarrhea, and constipation, MS/Extremity: Negative for injury and deformity, Skin: Negative for injury, rash, and discoloration, Psych: Negative for depression, anxiety, suicide ideation, homicidal ideation, and hallucinations. 10:36 Neuro: Positive for speech changes, Negative for altered mental status. Exam: 10:36 Constitutional: This is a well developed, well nourished patient who is awake, alert, rt and in no acute distress. Head/Face: Normocephalic, atraumatic. Chest/axilla: Normal chest wall appearance and motion. Nontender with no deformity. No lesions are appreciated. Cardiovascular: Regular rate and rhythm with a normal S1 and S2. No gallops, murmurs, or rubs. Normal PMI, no JVD. No pulse deficits. Respiratory: Lungs have equal breath sounds bilaterally, clear to auscultation and percussion. No rales, rhonchi or wheezes noted. No increased work of breathing, no retractions or nasal flaring. Abdomen/GI: Soft, non-tender, with normal bowel sounds. No distension or tympany. No guarding or rebound. No evidence of tenderness throughout. MS/ Extremity: Pulses equal, no cyanosis. Neurovascular intact. Full, normal range of motion. Psych: Awake, alert, with orientation to person, place and time. Behavior, mood, and affect are within normal limits. 10:36 Neuro: Slight dysarthria noted, no appreciable aphasia, cranial nerves II through XII intact, strength and sensation intact in upper and lower extremities. 11:40 ECG was reviewed by the Attending Physician. rt Vital Signs: 10:30 BP 150 / 75; Pulse 54; Resp 16; Temp 98.2(O); Pulse Ox 100% on R/A; Weight 67 kg; eh3 Height 6 ft. 2 in. ; 11:30 BP 145 / 98; Pulse 60; Resp 18; Pulse Ox 100% on R/A; eh3 12:30 BP 147 / 71; Pulse 62; Resp 18; Pulse Ox 97% on R/A; eh3 13:30 BP 155 / 70; Pulse 63; Resp 16; Pulse Ox 97% on R/A; eh3 14:30 BP 150 / 67; Pulse 84; Resp 18; Pulse Ox 96% on R/A; eh3 15:30 BP 152 / 61; Pulse 68; Resp 16; Pulse Ox 98% on R/A; eh3 16:30 BP 152 / 61; Pulse 64; Resp 18; Pulse Ox 97% on R/A; eh3 17:30 BP 150 / 67; Pulse 53; Resp 18; Pulse Ox 97% on R/A; eh3 10:30 Body Mass Index 18.96 (67.00 kg, 187.96 cm) 3 NIH Stroke Scale Scores: 10:30 NIHSS Score: 2 3 MDM: 10:31 Patient medically screened. rt 11:56 Data reviewed: vital signs, nurses notes, lab test result(s), EKG, radiologic studies. rt Consideration of Admission/Observation Patient was admitted/placed on observation. Management of patient was discussed with the following: Wellness Assistant: Discussed with accepting physician at the OR. I considered the following discharge prescriptions or medication management in the emergency department Medications were administered in the Emergency Department. See MAR. Independent interpretation of the following test(s) in the Emergency Department CT Scan: My interpretation is No hemorrhage seen on interpretation of the CT scan images. Care significantly affected by the following chronic conditions: Prior CVA,. Counseling: I had a detailed discussion with the patient and/or guardian regarding: the historical points, exam findings, and any diagnostic results supporting the discharge/admit diagnosis, lab results, radiology results, the need to transfer to another facility. 16:57 ED course: After attempted transfer to the OR awaiting for approval, MRI was obtained, rt results returned quickly. There were no acute stroke findings on the MRI. I did speak with Dr. Galeano regarding these results, states that patient is not likely to benefit from admission to the hospital at this time. Of note, patient does have known atrial fibrillation, is currently taking Eliquis therapy, no further medication changes are needed at this time, patient to follow-up as an outpatient.. 01/11 10:32 Order name: Basic Metabolic Panel; Complete Time: 11:42 rt 01/11 10:32 Order name: CBC with Diff; Complete Time: 13:35 rt 01/11 10:32 Order name: Hepatic Function; Complete Time: 11:42 rt 01/11 10:32 Order name: High Sensitivity Troponin; Complete Time: 11:42 rt 01/11 10:32 Order name: Magnesium; Complete Time: 11:42 rt 01/11 10:32 Order name: Protime (+inr); Complete Time: 13:35 rt 01/11 10:32 Order name: Ptt, Activated; Complete Time: 13:35 rt 01/11 11:17 Order name: CBC Smear Scan; Complete Time: 13:35 EDMS 01/11 11:26 Order name: CREATININE WHOLE BLOOD; Complete Time: 11:42 EDMS 01/11 10:32 Order name: CT Stroke Brain w/o Contrast; Complete Time: 11:42 rt 01/11 10:32 Order name: Stroke CXR 1 View; Complete Time: 11:49 rt 01/11 10:32 Order name: CT Head Angio; Complete Time: 11:42 rt 01/11 10:32 Order name: CT Neck Angio; Complete Time: 11:42 rt 01/11 14:42 Order name: MRI - Brain Wo Cont; Complete Time: 16:41 rt 01/11 10:32 Order name: EKG; Complete Time: 10:33 rt 01/11 10:32 Order name: Accucheck; Complete Time: 10:35 rt 01/11 10:32 Order name: Cardiac monitoring; Complete Time: 10:35 rt 01/11 10:32 Order name: EKG - Nurse/Tech; Complete Time: 11:31 rt 01/11 10:32 Order name: IV Saline Lock; Complete Time: 10:35 rt 01/11 10:32 Order name: Labs collected and sent; Complete Time: 11:01 rt 01/11 10:32 Order name: NPO; Complete Time: 10:35 rt 01/11 10:32 Order name: O2 Per Protocol; Complete Time: 10:35 rt 01/11 10:32 Order name: O2 Sat Monitoring; Complete Time: 10:35 rt 01/11 10:32 Order name: Stroke Swallow Screen; Complete Time: 11:01 rt EC:40 Rate is 61 beats/min. Rhythm is irregularly irregular, A fib with Occasional PVCs. QRS rt Simpson is Normal. QRS interval is normal. QT interval is normal. No Q waves. Administered Medications: 12:05 Drug: Aspirin PO 325 mg Route: PO; 3 13:00 Follow up: Response: No adverse reaction 3 Point of Care Testing: Ranges: Critical Glucose Levels:Adult <50 mg/dl or >400 mg/dl <40 mg/dl or >180 mg/dl Disposition Summary: 01/11/23 16:56 Discharge Ordered Location: Home rt Problem: new(01/11/23 16:56) rt Symptoms: are resolved(01/11/23 16:56) rt Condition: Stable(01/11/23 16:56) rt Diagnosis - Dysarthria rt Followup: rt - With: Shaun Galeano MD - When: 5 - 6 days - Reason: Discharge Instructions: - Discharge Summary Sheet rt - Atrial Fibrillation rt - Speech-Language Therapy After a Stroke rt Forms: - SBAR form eb - Medication Reconciliation Form rt - Thank You Letter rt - Antibiotic Education rt - Prescription Opioid Use rt - Patient Portal Instructions rt NIH Stroke Scale - NIH Stroke Score Date: 01/11/2023 Time: 10:30 Total Score = 2 10. Dysarthria (speech clarity - read or repeat words) - 1(Mild to Moderate) 11. Extinction and Inattention (visual/tactile/auditory/spatial/personal) - 0(No abnormality) 1a. Level of Consciousness (LOC) - 0(Alert) 1b. Level of Consciousness (LOC) (Month \T\ Age) - 0(Both) 1c. LOC Commands (Open \T\ Closes Eyes/Websphere Developer) - 0(Both) 2. Best Gaze (Lateral Gaze Paresis) - 0(Normal) 3. Visual Field Loss - 0(No visual loss) 4. Facial Palsy - 0(Normal) 5a. Left Arm: Motor (10-second hold) - 0(No drift) 5b. Right Arm: Motor (10-second hold) - 0(No drift) 6a. Left Leg: Motor (5-second hold - always test supine) - 0(No drift) 6b. Right Leg: Motor (5-second hold - always test supine) - 0(No drift) 7. Limb Ataxia (finger/nose \T\ heel/ramirez - test with eyes open) - 0(Absent) 8. Sensory Loss (pinprick arms/legs/face) - 0(Normal) 9. Best Language: Aphasia (description/naming/reading) - 1(Mild to moderate aphasia) Initials: eh3 Signatures: Dispatcher [employer] Fani Lazo RN RN 3 Sanjay Sneed MD MD rt Corrections: (The following items were deleted from the chart) 16:56 11:56 rt rt 16:56 11:56 [employer] rt rt 16:56 11:56 Patient request rt rt 16:56 11:56 Stable rt rt 16:56 11:56 new rt rt 16:56 11:56 are unchanged rt rt 16:56 11:56 Acute CVA rt rt
--- NOTE | 2023-01-11 11:57 | ER ---
Nurse's Notes [facility] Name: Luis Antonio Santamaria Age: 72 yrs Sex: Male : 1950 Arrival Date: 01/11/2023 Time: 10:27 Bed 14 Private MD: Diagnosis: Dysarthria Presentation: 01/11 10:30 Chief complaint: EMS states: slurred speech and general weakness since waking up this eh3 AM. EMS reports BGL of 201 and Afib en route. Coronavirus screen: Vaccine status: Patient reports receiving the 2nd dose of the covid vaccine. Ebola Screen: No symptoms or risks identified at this time. Initial Sepsis Screen: Does the patient meet any 2 criteria? No. Patient's initial sepsis screen is negative. Does the patient have a suspected source of infection? No. Patient's initial sepsis screen is negative. Risk Assessment: Do you want to hurt yourself or someone else? Patient reports no desire to harm self or others. Onset of symptoms was January 11, 2023. 10:30 Method Of Arrival: EMS: [facility] 10:30 Acuity: DYLON 3 3 10:30 No acute neurological deficit is noted. 3 Triage Assessment: 10:30 The onset of the patients symptoms was at an unknown time. General: Appears in no eh3 apparent distress. comfortable, Behavior is calm, cooperative, appropriate for age. Pain: Denies pain. Neuro: Level of Consciousness is awake, alert, obeys commands, Oriented to person, place, time, situation, Reports weakness. Cardiovascular: Capillary refill < 3 seconds Patient's skin is warm and dry. Respiratory: Airway is patent Respiratory effort is even, unlabored, Respiratory pattern is regular, symmetrical. GI: Abdomen is round non-distended. Derm: Skin is pink, warm \\T\\ dry. Musculoskeletal: Circulation, motion, and sensation intact. Stroke Activation: Symptom onset > 6 hours Physician: Stroke Attending; Name: ; Notified At: ; Arrived At: Physician: Chief Stroke Resident; Name: ; Notified At: ; Arrived At: Physician: Stroke Resident; Name: ; Notified At: ; Arrived At: Physician: ED Attending; Name: Nedra; Notified At: ; Arrived At: Physician: ED Resident; Name: ; Notified At: ; Arrived At: Historical: - Allergies: 10:30 No Known Allergies; eh3 - PMHx: 10:30 BRAIN TUMOR; CVA x4; Hyperlipidemia; Hypertension; Myocardial infarction; PVD; eh3 - Immunization history:: Adult Immunizations up to date. - Social history:: Smoking status: Patient/guardian denies using tobacco, the patient reports quitting approximately 15 years ago, Patient/guardian denies using alcohol. - Family history:: not pertinent. Screenin:01 [facility] ED Fall Risk Assessment (Adult) Score/Fall Risk Level. Abuse screen: Denies eh3 threats or abuse. Denies injuries from another. Nutritional screening: No deficits noted. Tuberculosis screening: No symptoms or risk factors identified. [place] Swallow Protocol Exclusion Criteria: Exclusion Criteria Result: Proceed Brief Cognitive Screen What is your name? Normal, Where are you right now? Normal, What year is it? Normal. Oral Mechanism Examination Facial Symmetry: Normal, Motion: Normal, Lip Closure: Normal, Oral Mechanism Result: Normal. 3 oz Water Swallow Challenge: Pt able to drink all water without stopping, coughing, choking or throat clearing: Yes Result: PASS. Assessment: 10:30 VAN Scoring: Arm Drift: Patients demonstrates NO arm weakness. Patient is VAN Negative. eh3 TNKase (Tenecteplase) Screening: Indications: Treatment will start within 4.5 hours onset of symptoms: No. 11:30 Reassessment: Patient appears in no apparent distress at this time. Patient and/or eh3 family updated on plan of care and expected duration. Pain level reassessed. Patient is alert, oriented x 3, equal unlabored respirations, skin warm/dry/pink. 12:30 Reassessment: Patient appears in no apparent distress at this time. Patient and/or eh3 family updated on plan of care and expected duration. Pain level reassessed. Patient is alert, oriented x 3, equal unlabored respirations, skin warm/dry/pink. 13:30 Reassessment: Patient appears in no apparent distress at this time. Patient and/or eh3 family updated on plan of care and expected duration. Pain level reassessed. Patient is alert, oriented x 3, equal unlabored respirations, skin warm/dry/pink. 14:30 Reassessment: Patient appears in no apparent distress at this time. Patient and/or eh3 family updated on plan of care and expected duration. Pain level reassessed. Patient is alert, oriented x 3, equal unlabored respirations, skin warm/dry/pink. 14:43 Reassessment: Pt's sister, Brenna Ace, , reports she is the POA for pt jl7 and [facility] not [facility], she wants him to stay at this hospital. Pt is alert and oriented to self, time and place and states "I don't care either way but I don't have insurance." Dr. Sneed notified and ordered MRI to be done while pt remains at this hospital. Transfer pending transport at this time. 14:45 Reassessment: Pt d/cd IV himself. Catheter intact, bleeding controlled, pressure eh3 dressing applied. 15:30 Reassessment: Patient appears in no apparent distress at this time. Patient and/or eh3 family updated on plan of care and expected duration. Pain level reassessed. Patient is alert, oriented x 3, equal unlabored respirations, skin warm/dry/pink. 16:30 Reassessment: Patient appears in no apparent distress at this time. Patient and/or eh3 family updated on plan of care and expected duration. Pain level reassessed. Patient is alert, oriented x 3, equal unlabored respirations, skin warm/dry/pink. 17:00 Reassessment: Pt is bedbound and awaiting EMS transport. 3 17:30 Reassessment: Patient appears in no apparent distress at this time. Patient and/or eh3 family updated on plan of care and expected duration. Pain level reassessed. Patient is alert, oriented x 3, equal unlabored respirations, skin warm/dry/pink. Vital Signs: 10:30 BP 150 / 75; Pulse 54; Resp 16; Temp 98.2(O); Pulse Ox 100% on R/A; Weight 67 kg; eh3 Height 6 ft. 2 in. ; 11:30 BP 145 / 98; Pulse 60; Resp 18; Pulse Ox 100% on R/A; eh3 12:30 BP 147 / 71; Pulse 62; Resp 18; Pulse Ox 97% on R/A; eh3 13:30 BP 155 / 70; Pulse 63; Resp 16; Pulse Ox 97% on R/A; eh3 14:30 BP 150 / 67; Pulse 84; Resp 18; Pulse Ox 96% on R/A; eh3 15:30 BP 152 / 61; Pulse 68; Resp 16; Pulse Ox 98% on R/A; eh3 16:30 BP 152 / 61; Pulse 64; Resp 18; Pulse Ox 97% on R/A; eh3 17:30 BP 150 / 67; Pulse 53; Resp 18; Pulse Ox 97% on R/A; eh3 10:30 Body Mass Index 18.96 (67.00 kg, 187.96 cm) eh3 NIH Stroke Scale Scores: 10:30 NIHSS Score: 2 3 ED Course: 10:30 Patient arrived in ED. eh3 10:30 Arm band placed on. eh3 10:30 Patient has correct armband on for positive identification. Bed in low position. Call 3 light in reach. Side rails up X2. Provided Education on: N/A. Client placed on continuous cardiac and pulse oximetry monitoring. NIBP monitoring applied. Door closed. Noise minimized. Lights dimmed. Warm blanket given. 10:30 Inserted saline lock: 20 gauge in right antecubital area, using aseptic technique. eh3 Blood collected. IV completed in CT scan. 10:31 Sanjay Sneed MD is Attending Physician. rt 10:32 Triage completed. eh3 10:34 Fani Odonnell, ROBERTO is Primary Nurse. eh3 10:56 CT Head Angio In Process Unspecified. EDMS 10:56 CT Neck Angio In Process Unspecified. EDMS 11:05 CT Stroke Brain w/o Contrast In Process Unspecified. EDMS 11:16 Note: placed a 22diffusics in right AC. ls3 11:32 Stroke CXR 1 View In Process Unspecified. EDMS 12:04 attempted to initiated a transfer with [facility] at the request of the eb patient. 12:24 initiated a transfer with Paige from the [facility] transfer [facility]/ faxed over patient chart eb as requested. 14:23 administrative approval given by Nora Ambrocio / patient has been accepted to the [facility] ED/ eb Dr. Simpson has accepted the patient in transport/ report to be called to [phone]. 15:20 Missed attempt(s): 20 gauge in right upper arm. Bleeding controlled, band aid applied, eh3 catheter tip intact. 15:30 Inserted saline lock: 22 gauge in right wrist, using aseptic technique. eh3 16:19 MRI - Brain Wo Cont In Process Unspecified. EDMS 16:56 Shaun Galeano MD is Referral Physician. rt 18:34 No provider procedures requiring assistance completed. IV discontinued, intact, eh3 bleeding controlled, No redness/swelling at site. Pressure dressing applied. Administered Medications: 12:05 Drug: Aspirin PO 325 mg Route: PO; 3 13:00 Follow up: Response: No adverse reaction 3 Medication: 18:34 VIS not applicable for this client. 3 Point of Care Testing: Ranges: Outcome: 11:56 ER care complete, transfer ordered by MD. rt 16:56 Discharge ordered by MD. rt 18:34 [facility] Report called to [facility] 18:34 Condition: stable 18:34 Discharge instructions given to patient, prison, Instructed on discharge instructions, follow up and referral plans. Demonstrated understanding of instructions, follow-up care. 18:35 Patient left the ED. 3 NIH Stroke Scale - NIH Stroke Score Date: 01/11/2023 Time: 10:30 Total Score = 2 10. Dysarthria (speech clarity - read or repeat words) - 1(Mild to Moderate) 11. Extinction and Inattention (visual/tactile/auditory/spatial/personal) - 0(No abnormality) 1a. Level of Consciousness (LOC) - 0(Alert) 1b. Level of Consciousness (LOC) (Month \\T\\ Age) - 0(Both) 1c. LOC Commands (Open \\T\\ Closes Eyes/Building Coordinator) - 0(Both) 2. Best Gaze (Lateral Gaze Paresis) - 0(Normal) 3. Visual Field Loss - 0(No visual loss) 4. Facial Palsy - 0(Normal) 5a. Left Arm: Motor (10-second hold) - 0(No drift) 5b. Right Arm: Motor (10-second hold) - 0(No drift) 6a. Left Leg: Motor (5-second hold - always test supine) - 0(No drift) 6b. Right Leg: Motor (5-second hold - always test supine) - 0(No drift) 7. Limb Ataxia (finger/nose \\T\\ heel/ramirez - test with eyes open) - 0(Absent) 8. Sensory Loss (pinprick arms/legs/face) - 0(Normal) 9. Best Language: Aphasia (description/naming/reading) - 1(Mild to moderate aphasia) Initials: 3 Signatures: Dispatcher [employer] Fly Nguyễn RN RN jl7 Calista Riojas Lynzie ls3 Fani Odonnell RN RN eh3 Sanjay Sneed MD MD rt Corrections: (The following items were deleted from the chart) 18:39 18:34 Discharged to prison. Report called to . 3 3
[2023-01-11] MEDS ORDERED: ASPIRIN 325 MG TAB ONE (12:14)
[2023-01-11 12:19] LABS: Anisocytosis 1+; Blood Morphology Comment NOTED (NOT SEEN); Platelet Estimate DECR; White Blood Cell Scan OK (OK)
[2023-01-11 13:23] LABS: Protime INR ND
--- NOTE | 2023-01-11 16:40 | RAD REPORT ---
EXAM DESCRIPTION: MRI - Brain Wo Cont - 01/11/2023 4:25 pm CLINICAL HISTORY: cva COMPARISON: No comparisons TECHNIQUE: Sagittal T1-weighted images were obtained along with PD/heavily T2-weighted and T2-FLAIR images. Axial DWI and ADC mapping sequences were also obtained along with coronal heavily T2-weighted images were obtained. FINDINGS: No intracranial hemorrhage, mass or acute infarction. There is no edema or shift of midlin e structures. No extra-axial fluid collections. Signal voids are seen as a normal finding in the zak r intracranial vessels. Dural based lesion along the high left frontal lobe consistent with a meningi cliff. This is unchanged. It measures 2.1 cm. Encephalomalacia in the left frontal parietal lobe and ri ght cerebellum is chronic. Mild chronic small vessel ischemic changes . Cerebral atrophy. Mastoid air cells and paranasal sinuses are clear. IMPRESSION: No acute intracranial abnormality. Specifically, no evidence of acute infarct. Remote le ft MCA territory and right cerebellar infarct. Unchanged meningioma along the left frontal lobe.
[2023-01-11 21:21] VITALS: TEMP 98.2
[2023-01-11 21:32] VITALS: O2SAT 97
[2023-01-11 21:34] VITALS: BP 150/67
--- NOTE | 2023-01-14 11:52 | EKG ---
Test Date: 2023-01-11 Test Time: 11:24:39 Tool Design Drafter: WINTER MEASUREMENT RESULTS: Intervals: Rate: 61 SD: QRSD: 116 QT: 454 QTc: 457 [place]: P: SD: QRS: 43 T: 68 INTERPRETIVE STATEMENTS: Atrial fibrillation with premature ventricular or aberrantly conducted complexes Incomplete right bundle branch block Abnormal ECG Compared to ECG 07/20/2016 10:00:04 Ventricular premature complex(es) now present Incomplete right bundle-branch block now present Accelerated junctional rhythm no longer present Electronically Signed On 01-14-23 11:47:03 CDT by Russell Perry
== END 2023-01-11 18:35 | disposition home or self-care (01) ==
LOC: ER 10:27
DX: R47.1 Dysarthria and anarthria (principal); I10 Essential (primary) hypertension; Z86.73 Personal history of transient ischemic attack (TIA), and cerebral infarction without residual deficits
CPT/HCPCS: 93005; 85025; 80048; 36415; 83735; 85610; 82565; 80076; 84484; 70496; 70498; 70450; 71045; 70551; 99285; Q9967

== ENCOUNTER → 2023-07-18 | Emergency (ER) | payer OTHER ==
[~2023-07-18] MED LIST: DERMABOND SKIN ADHESIVE TOP ONE
--- OUTSIDE RECORDS SUMMARY | 2023-07-18 15:51 | XMS REPORT | Continuity of Care Document ---
Author Name Unknown Address [address] [facility] [address] [place] [address] [facility] thconnect Address [address] [facility] 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 Name Role Phone Cheikh Gutierrez Attending Clinician Unavailable Cheikh Gutierrez Admitting Clinician Unavailable Physician, No Primary or Family Admitting Clinic jorge a Unavailable Payers Payer Name Policy Type Policy Number Effective Date Expirati on Date Source Allergies, Adverse Reactions, Alerts Allergy Name Allergy Type Status Severity Reaction(s) Onset Date Inactive Date Treating Clinician Comments Source No Known Allergie s DA Active U 2021-07 00:00: 00 [facility] No Known Allergie s DA Active U 08-08 00:00: 00 [facility] No Known Allergie s DA Active U 08-08 00:00: 00 [facility] Encounters Start Date/Time End Date/Time Encounter Type Admission Type Attending Clinicians Care Facility Care Department Encounter ID Source 2022-05-30 01:41:00 2022-06-11 13:02:00 Inpatient EM Cheikh Gutierrez HCAPM INTE.02 [id number] [facility] 2022-05-31 07:53:00 2022-05-31 07:53:00 Outpatient Cheikh Gutierrez HCACL LABO [id number] [facility] Results Test Description Test Time Test Comments Results Result Co mments Source GLUCOSE BEDSIDE [id number] 21:09:00* Test Item Value Reference Range Interpretation Comme nts GLUCOSE BEDSIDE TESTING (hipolito t code = GLUBED) 140 mg/dL 70-110 H GLUCOSE BEDSIDE [id number] 17:24:00* Test Item Value Reference Range Interpretation Comme nts GLUCOSE BEDSIDE TESTING (hipolito t code = GLUBED) 161 mg/dL 70-110 H GLUCOSE BEDSIDE [id number] 12:02:00* Test Item Value Reference Range Interpretation Comme nts GLUCOSE BEDSIDE TESTING (hipolito t code = GLUBED) 174 mg/dL 70-110 H GLUCOSE BEDSIDE [id number] 08:11:00* Test Item Value Reference Range Interpretation Comme nts GLUCOSE BEDSIDE TESTING (hipolito t code = GLUBED) 206 mg/dL 70-110 H GLUCOSE BEDSIDE [id number] 20:56:00* Test Item Value Reference Range Interpretation Comme nts GLUCOSE BEDSIDE TESTING (hipolito t code = GLUBED) 185 mg/dL 70-110 H GLUCOSE BEDSIDE [id number] 16:18:00* Test Item Value Reference Range Interpretation Comme nts GLUCOSE BEDSIDE TESTING (hipolito t code = GLUBED) 77 mg/dL 70-110 N GLUCOSE BEDSIDE [id number] 11:27:00* Test Item Value Reference Range Interpretation Comme nts GLUCOSE BEDSIDE TESTING (hipolito t code = GLUBED) 206 mg/dL 70-110 H GLUCOSE BEDSIDE [id number] 20:22:00* Test Item Value Reference Range Interpretation Comme nts GLUCOSE BEDSIDE TESTING (hipolito t code = GLUBED) 111 mg/dL 70-110 H GLUCOSE BEDSIDE [id number] 17:12:00* Test Item Value Reference Range Interpretation Comme nts GLUCOSE BEDSIDE TESTING (hipolito t code = GLUBED) 189 mg/dL 70-110 H GLUCOSE BEDSIDE [id number] 11:37:00* Test Item Value Reference Range Interpretation Comme nts GLUCOSE BEDSIDE TESTING (hipolito t code = GLUBED) 140 mg/dL 70-110 H GLUCOSE BEDSIDE [id number] 08:13:00* Test Item Value Reference Range Interpretation Comme nts GLUCOSE BEDSIDE TESTING (hipolito t code = GLUBED) 86 mg/dL 70-110 N GLUCOSE BEDSIDE [id number] 21:00:00* Test Item Value Reference Range Interpretation Comme nts GLUCOSE BEDSIDE TESTING (hipolito t code = GLUBED) 105 mg/dL 70-110 N GLUCOSE BEDSIDE [id number] 16:42:00* Test Item Value Reference Range Interpretation Comme nts GLUCOSE BEDSIDE TESTING (hipolito t code = GLUBED) 164 mg/dL 70-110 H GLUCOSE BEDSIDE [id number] 12:33:00* Test Item Value Reference Range Interpretation Comme nts GLUCOSE BEDSIDE TESTING (hipolito t code = GLUBED) 142 mg/dL 70-110 H GLUCOSE BEDSIDE [id number] 07:44:00* Test Item Value Reference Range Interpretation Comme nts GLUCOSE BEDSIDE TESTING (hipolito t code = GLUBED) 131 mg/dL 70-110 H GLUCOSE BEDSIDE [id number] 20:25:00* Test Item Value Reference Range Interpretation Comme nts GLUCOSE BEDSIDE TESTING (hipolito t code = GLUBED) 147 mg/dL 70-110 H GLUCOSE BEDSIDE [id number] 17:00:00* Test Item Value Reference Range Interpretation Comme nts GLUCOSE BEDSIDE TESTING (hipolito t code = GLUBED) 181 mg/dL 70-110 H GLUCOSE BEDSIDE [id number] 11:40:00* Test Item Value Reference Range Interpretation Comme nts GLUCOSE BEDSIDE TESTING (hipolito t code = GLUBED) 160 mg/dL 70-110 H GLUCOSE BEDSIDE [id number] 07:25:00* Test Item Value Reference Range Interpretation Comme nts GLUCOSE BEDSIDE TESTING (hipolito t code = GLUBED) 129 mg/dL 70-110 H GLUCOSE BEDSIDE [id number] 22:36:00* Test Item Value Reference Range Interpretation Comme nts GLUCOSE BEDSIDE TESTING (hipolito t code = GLUBED) 157 mg/dL 70-110 H GLUCOSE BEDSIDE [id number] 12:18:00* Test Item Value Reference Range Interpretation Comme nts GLUCOSE BEDSIDE TESTING (hipolito t code = GLUBED) 178 mg/dL 70-110 H GLUCOSE BEDSIDE [id number] 08:12:00* Test Item Value Reference Range Interpretation Comme nts GLUCOSE BEDSIDE TESTING (hipolito t code = GLUBED) 122 mg/dL 70-110 H GLUCOSE BEDSIDE [id number] 05:55:00* Test Item Value Reference Range Interpretation Comme nts GLUCOSE BEDSIDE TESTING (hipolito t code = GLUBED) 146 mg/dL 70-110 H GLUCOSE BEDSIDE [id number] 22:17:00* Test Item Value Reference Range Interpretation Comme nts GLUCOSE BEDSIDE TESTING (hipolito t code = GLUBED) 154 mg/dL 70-110 H GLUCOSE BEDSIDE [id number] 17:19:00* Test Item Value Reference Range Interpretation Comme nts GLUCOSE BEDSIDE TESTING (hipolito t code = GLUBED) 170 mg/dL 70-110 H GLUCOSE BEDSIDE [id number] 11:47:00* Test Item Value Reference Range Interpretation Comme nts GLUCOSE BEDSIDE TESTING (hipolito t code = GLUBED) 139 mg/dL 70-110 H GLUCOSE BEDSIDE [id number] 06:51:00* Test Item Value Reference Range Interpretation Comme nts GLUCOSE BEDSIDE TESTING (hipolito t code = GLUBED) 97 mg/dL 70-110 N BASIC METABOLIC [id number] 04:49:00* Test Item Value Reference Range Interpretation Comme nts SODIUM (test code = NA) 131 mmol/L 134-147 L POTASSIUM (test code = K) 3.9 mmol/L 3.4-5.0 N CHLORIDE (test code = CL) 101 mmol/L 100-108 N CARBON DIOXIDE (test code = CO2) 23 mmol/L 21-32 N ANION GAP (test code = GAP) 7.0 GAP calc 4.0-15.0 N GLUCOSE (test code = GLU) 108 MG/DL 70-110 N BLOOD UREA NITROGEN (test code = BUN) 8 MG/DL 7-18 N GLOMERULAR FILTRATION RATE (test code = GFR) >=60 max estimate estGFR >60 The Glomerular Filtration Rate is a calculated parameterbased on serum Creatinine, patient age and sex. GFR valuesless than 60 mL/min/1.73 square meters are indicative ofChronic Kidney Disease. Values less than 15 mL/min/1.73square meters indicate Kidney failure. The calculation forGFR is based on the CKD-EPI (2020) calculation. This formulais race indifferent and is the recommended formula for GFRby the National Kidney Foundation for Adults.The GFR will not calculate if the sex is unknown or if thepatient's age is <18 years. CREATININE (test code = CREAT) 0.6 MG/DL 0.8-1.3 L CALCIUM (test code = CA) 7.3 MG/DL 8.5-10.1 L CBC W/AUTO [id number] 04:10:00* Test Item Value Reference Range Interpretation Comme nts WHITE BLOOD CELL (test code = WBC) 6.1 K/mm3 3.5-11.0 N RED BLOOD CELL (test code = RBC) 3.47 M/mm3 4.70-6.10 L HEMOGLOBIN (test code = HGB) 8.5 G/DL 12.3-15.9 L HEMATOCRIT (test code = HCT) 26.9 % 35.8-46.7 L MEAN CELL VOLUME (test code = MCV) 77.5 Fl 86.3-98.9 L MEAN CELL HGB (test code = MCH) 24.5 pg 28.9-34.4 L MEAN CELL HGB CONCETRATION (test code = MCHC) 31.6 G/DL 32.1-34.5 L RED CELL DISTRIBUTION WIDTH (test code = RDW) 18.4 SD 11.5-14.5 H PLATELET COUNT (test code = PLT) 143 K/mm3 150-450 L MEAN PLATELET VOLUME (test c ode = MPV) 10.70 fL 7.0-9.6 H NEUTROPHIL % (test code = NT%) 69.1 % 40-76 N IMMATURE GRANULOCYTE % (test code = IG%) 1.1 % 0.0-5.0 N LYMPHOCYTE % (test code = LY%) 13.6 % 20.5-51.1 L MONOCYTE % (test code = MO%) 10.3 % 1.7-9.3 H EOSINOPHIL % (test code = EO%) 4.9 % 0.0-6.0 N BASOPHIL % (test code = BA%) 1.0 % 0.0-2.0 N NUCLEATED RBC % (test code = NRBC%) 0.0 /100WBC% 0.0-1.0 N NEUTROPHIL # (test code = NT#) 4.2 K/mm3 1.8-7.6 N IMMATURE GRANULOCYTE # (test code = IG#) 0.07 x10 3/uL 0.00-0.03 H LYMPHOCYTE # (test code = LY#) 0.8 K/mm3 0.6-3.0 N MONOCYTE # (test code = MO#) 0.6 K/mm3 0.2-1.5 N EOSINOPHIL # (test code = EO#) 0.3 K/mm3 0.0-0.4 N BASOPHIL # (test code = BA#) 0.1 K/mm3 0.0-0.2 N NUCLEATED RBC # (test code = NRBC#) 0.0 K/mm3 0.00-0.01 N MANUAL DIFF REQUIRED (test c ode = MDIFF) NO DIFF/SCN CRITERIA GLUCOSE BEDSIDE [id number] 20:43:00* Test Item Value Reference Range Interpretation Comme nts GLUCOSE BEDSIDE TESTING (hipolito t code = GLUBED) 218 mg/dL 70-110 H GLUCOSE BEDSIDE [id number] 18:31:00* Test Item Value Reference Range Interpretation Comme nts GLUCOSE BEDSIDE TESTING (hipolito t code = GLUBED) 118 mg/dL 70-110 H GLUCOSE BEDSIDE [id number] 11:16:00* Test Item Value Reference Range Interpretation Comme nts GLUCOSE BEDSIDE TESTING (hipolito t code = GLUBED) 179 mg/dL 70-110 H GLUCOSE BEDSIDE [id number] 08:01:00* Test Item Value Reference Range Interpretation Comme nts GLUCOSE BEDSIDE TESTING (hipolito t code = GLUBED) 126 mg/dL 70-110 H CBC W/AUTO [id number] 06:17:00* Test Item Value Reference Range Interpretation Comme nts WHITE BLOOD CELL (test code = WBC) 7.7 K/mm3 3.5-11.0 N RED BLOOD CELL (test code = RBC) 3.77 M/mm3 4.70-6.10 L HEMOGLOBIN (test code = HGB) 9.2 G/DL 12.3-15.9 L HEMATOCRIT (test code = HCT) 29.0 % 35.8-46.7 L MEAN CELL VOLUME (test code = MCV) 76.9 Fl 86.3-98.9 L MEAN CELL HGB (test code = MCH) 24.4 pg 28.9-34.4 L MEAN CELL HGB CONCETRATION (test code = MCHC) 31.7 G/DL 32.1-34.5 L RED CELL DISTRIBUTION WIDTH (test code = RDW) 17.0 SD 11.5-14.5 H PLATELET COUNT (test code = PLT) 195 K/mm3 150-450 N MEAN PLATELET VOLUME (test c ode = MPV) 11.00 fL 7.0-9.6 H NEUTROPHIL % (test code = NT%) 67.6 % 40-76 N IMMATURE GRANULOCYTE % (test code = IG%) 0.8 % 0.0-5.0 N LYMPHOCYTE % (test code = LY%) 13.4 % 20.5-51.1 L MONOCYTE % (test code = MO%) 9.3 % 1.7-9.3 N EOSINOPHIL % (test code = EO%) 7.9 % 0.0-6.0 H BASOPHIL % (test code = BA%) 1.0 % 0.0-2.0 N NUCLEATED RBC % (test code = NRBC%) 0.0 /100WBC% 0.0-1.0 N NEUTROPHIL # (test code = NT#) 5.2 K/mm3 1.8-7.6 N IMMATURE GRANULOCYTE # (test code = IG#) 0.06 x10 3/uL 0.00-0.03 H LYMPHOCYTE # (test code = LY#) 1.0 K/mm3 0.6-3.0 N MONOCYTE # (test code = MO#) 0.7 K/mm3 0.2-1.5 N EOSINOPHIL # (test code = EO#) 0.6 K/mm3 0.0-0.4 H BASOPHIL # (test code = BA#) 0.1 K/mm3 0.0-0.2 N NUCLEATED RBC # (test code = NRBC#) 0.0 K/mm3 0.00-0.01 N MANUAL DIFF REQUIRED (test c ode = MDIFF) NO DIFF/SCN CRITERIA GLUCOSE BEDSIDE [id number] 20:13:00* Test Item Value Reference Range Interpretation Comme nts GLUCOSE BEDSIDE TESTING (hipolito t code = GLUBED) 221 mg/dL 70-110 H GLUCOSE BEDSIDE [id number] 16:23:00* Test Item Value Reference Range Interpretation Comme nts GLUCOSE BEDSIDE TESTING (hipolito t code = GLUBED) 128 mg/dL 70-110 H GLUCOSE BEDSIDE [id number] 11:31:00* Test Item Value Reference Range Interpretation Comme nts GLUCOSE BEDSIDE TESTING (hipolito t code = GLUBED) 188 mg/dL 70-110 H GLUCOSE BEDSIDE [id number] 07:44:00* Test Item Value Reference Range Interpretation Comme nts GLUCOSE BEDSIDE TESTING (hipolito t code = GLUBED) 168 mg/dL 70-110 H CBC W/AUTO [id number] 02:01:00* Test Item Value Reference Range Interpretation Comme nts WHITE BLOOD CELL (test code = WBC) 6.5 K/mm3 3.5-11.0 N RED BLOOD CELL (test code = RBC) 3.80 M/mm3 4.70-6.10 L HEMOGLOBIN (test code = HGB) 9.2 G/DL 12.3-15.9 L HEMATOCRIT (test code = HCT) 29.7 % 35.8-46.7 L MEAN CELL VOLUME (test code = MCV) 78.2 Fl 86.3-98.9 L MEAN CELL HGB (test code = MCH) 24.2 pg 28.9-34.4 L MEAN CELL HGB CONCETRATION (test code = MCHC) 31.0 G/DL 32.1-34.5 L RED CELL DISTRIBUTION WIDTH (test code = RDW) 16.7 SD 11.5-14.5 H PLATELET COUNT (test code = PLT) 180 K/mm3 150-450 N MEAN PLATELET VOLUME (test c ode = MPV) 9.90 fL 7.0-9.6 H NEUTROPHIL % (test code = NT%) 70.8 % 40-76 N IMMATURE GRANULOCYTE % (test code = IG%) 0.6 % 0.0-5.0 N LYMPHOCYTE % (test code = LY%) 11.9 % 20.5-51.1 L MONOCYTE % (test code = MO%) 9.6 % 1.7-9.3 H EOSINOPHIL % (test code = EO%) 6.2 % 0.0-6.0 H BASOPHIL % (test code = BA%) 0.9 % 0.0-2.0 N NUCLEATED RBC % (test code = NRBC%) 0.0 /100WBC% 0.0-1.0 N NEUTROPHIL # (test code = NT#) 4.6 K/mm3 1.8-7.6 N IMMATURE GRANULOCYTE # (test code = IG#) 0.04 x10 3/uL 0.00-0.03 H LYMPHOCYTE # (test code = LY#) 0.8 K/mm3 0.6-3.0 N MONOCYTE # (test code = MO#) 0.6 K/mm3 0.2-1.5 N EOSINOPHIL # (test code = EO#) 0.4 K/mm3 0.0-0.4 N BASOPHIL # (test code = BA#) 0.1 K/mm3 0.0-0.2 N NUCLEATED RBC # (test code = NRBC#) 0.0 K/mm3 0.00-0.01 N MANUAL DIFF REQUIRED (test c ode = MDIFF) NO DIFF/SCN CRITERIA GLUCOSE BEDSIDE [id number] 20:22:00* Test Item Value Reference Range Interpretation Comme nts GLUCOSE BEDSIDE TESTING (hipolito t code = GLUBED) 108 mg/dL 70-110 N GLUCOSE BEDSIDE [id number] 12:05:00* Test Item Value Reference Range Interpretation Comme nts GLUCOSE BEDSIDE TESTING (hipolito t code = GLUBED) 172 mg/dL 70-110 H CBC W/AUTO [id number] 09:34:00* Test Item Value Reference Range Interpretation Comme nts WHITE BLOOD CELL (test code = WBC) 5.9 K/mm3 3.5-11.0 N RED BLOOD CELL (test code = RBC) 3.93 M/mm3 4.70-6.10 L HEMOGLOBIN (test code = HGB) 9.4 G/DL 12.3-15.9 L HEMATOCRIT (test code = HCT) 29.8 % 35.8-46.7 L MEAN CELL VOLUME (test code = MCV) 75.8 Fl 86.3-98.9 L MEAN CELL HGB (test code = MCH) 23.9 pg 28.9-34.4 L MEAN CELL HGB CONCETRATION (test code = MCHC) 31.5 G/DL 32.1-34.5 L RED CELL DISTRIBUTION WIDTH (test code = RDW) 16.6 SD 11.5-14.5 H PLATELET COUNT (test code = PLT) 159 K/mm3 150-450 N MEAN PLATELET VOLUME (test c ode = MPV) 10.30 fL 7.0-9.6 H NEUTROPHIL % (test code = NT%) 67.8 % 40-76 N IMMATURE GRANULOCYTE % (test code = IG%) 0.7 % 0.0-5.0 N LYMPHOCYTE % (test code = LY%) 13.6 % 20.5-51.1 L MONOCYTE % (test code = MO%) 10.9 % 1.7-9.3 H EOSINOPHIL % (test code = EO%) 6.3 % 0.0-6.0 H BASOPHIL % (test code = BA%) 0.7 % 0.0-2.0 N NUCLEATED RBC % (test code = NRBC%) 0.0 /100WBC% 0.0-1.0 N NEUTROPHIL # (test code = NT#) 4.0 K/mm3 1.8-7.6 N IMMATURE GRANULOCYTE # (test code = IG#) 0.04 x10 3/uL 0.00-0.03 H LYMPHOCYTE # (test code = LY#) 0.8 K/mm3 0.6-3.0 N MONOCYTE # (test code = MO#) 0.6 K/mm3 0.2-1.5 N EOSINOPHIL # (test code = EO#) 0.4 K/mm3 0.0-0.4 N BASOPHIL # (test code = BA#) 0.0 K/mm3 0.0-0.2 N NUCLEATED RBC # (test code = NRBC#) 0.0 K/mm3 0.00-0.01 N MANUAL DIFF REQUIRED (test c ode = MDIFF) NO DIFF/SCN CRITERIA GLUCOSE BEDSIDE [id number] 08:06:00* Test Item Value Reference Range Interpretation Comme nts GLUCOSE BEDSIDE TESTING (hipolito t code = GLUBED) 149 mg/dL 70-110 H GLUCOSE BEDSIDE [id number] 21:06:00* Test Item Value Reference Range Interpretation Comme nts GLUCOSE BEDSIDE TESTING (hipolito t code = GLUBED) 190 mg/dL 70-110 H GLUCOSE BEDSIDE [id number] 17:03:00* Test Item Value Reference Range Interpretation Comme nts GLUCOSE BEDSIDE TESTING (hipolito t code = GLUBED) 173 mg/dL 70-110 H THROMBOPLASTIN TIME [id number] 07:42:00* Test Item Value Reference Range Interpretation Comme nts THROMBOPLASTIN TIME PARTIAL (test code = PTT) 84.9 SECONDS 26-35 H TROP-I HIGH [id number] 05:07:00* Test Item Value Reference Range Interpretation Comme nts TROP-I HIGH SENSITIVITY (test code = TROPIHS) 61.6 ng/L 0-54 H CAUTION: Units o f the current test methodology (ng/L) differfrom the prior test methodology (ng/mL) by a factor of 1000. 99th Percentile Upper Reference Limit (URL):Females: 34 ng/LMales: 54 ng/L In order to distinguish acute elevations of high sensitivitytroponin from other clinical conditions, the FourthUniversal Definition of Myocardial Infarction stressesclinical assessment and the demonstration of a rise and/orfall in serial troponin results above the URL. Results from different methodologies should not be comparedto one another as quantitative results and URLs may varyby method. Completed by Nursing: YESTroponin I Result: .Performed By: .If Critical Value, Physician Notified: .Date & Time Test Performed: .CBC W/AUTO [id number] 04:52:00* Test Item Value Reference Range Interpretation Comme nts WHITE BLOOD CELL (test code = WBC) 5.9 K/mm3 3.5-11.0 N RED BLOOD CELL (test code = RBC) 3.35 M/mm3 4.70-6.10 L HEMOGLOBIN (test code = HGB) 8.1 G/DL 12.3-15.9 L HEMATOCRIT (test code = HCT) 26.1 % 35.8-46.7 L MEAN CELL VOLUME (test code = MCV) 77.9 Fl 86.3-98.9 L MEAN CELL HGB (test code = MCH) 24.2 pg 28.9-34.4 L MEAN CELL HGB CONCETRATION (test code = MCHC) 31.0 G/DL 32.1-34.5 L RED CELL DISTRIBUTION WIDTH (test code = RDW) 16.4 SD 11.5-14.5 H PLATELET COUNT (test code = PLT) 165 K/mm3 150-450 N MEAN PLATELET VOLUME (test c ode = MPV) 10.20 fL 7.0-9.6 H NEUTROPHIL % (test code = NT%) 67.6 % 40-76 N IMMATURE GRANULOCYTE % (test code = IG%) 1.0 % 0.0-5.0 N LYMPHOCYTE % (test code = LY%) 14.4 % 20.5-51.1 L MONOCYTE % (test code = MO%) 9.1 % 1.7-9.3 N EOSINOPHIL % (test code = EO%) 7.1 % 0.0-6.0 H BASOPHIL % (test code = BA%) 0.8 % 0.0-2.0 N NUCLEATED RBC % (test code = NRBC%) 0.0 /100WBC% 0.0-1.0 N NEUTROPHIL # (test code = NT#) 4.0 K/mm3 1.8-7.6 N IMMATURE GRANULOCYTE # (test code = IG#) 0.06 x10 3/uL 0.00-0.03 H LYMPHOCYTE # (test code = LY#) 0.9 K/mm3 0.6-3.0 N MONOCYTE # (test code = MO#) 0.5 K/mm3 0.2-1.5 N EOSINOPHIL # (test code = EO#) 0.4 K/mm3 0.0-0.4 N BASOPHIL # (test code = BA#) 0.1 K/mm3 0.0-0.2 N NUCLEATED RBC # (test code = NRBC#) 0.0 K/mm3 0.00-0.01 N MANUAL DIFF REQUIRED (test c ode = MDIFF) NO DIFF/SCN CRITERIA THROMBOPLASTIN TIME [id number] 00:12:00* Test Item Value Reference Range Interpretation Comme nts THROMBOPLASTIN TIME PARTIAL (test code = PTT) 37.0 SECONDS 26-35 H PROTHROMBIN [id number] 23:24:00* Test Item Value Reference Range Interpretation Comme nts PT PATIENT (test code = PTP) 12.8 SECONDS 9.3-12.9 N INTERNATIONAL NORMAL RATIO (test code = INR) 1.12 INR Unit 0.8-1.2 N TARGET INR BY INDICATION Indication INR1. Prophylaxis of venous thrombosis 2.0 - 3.0 (orthopedic surgery), Prophylaxis of venous thrombosis (other than high-risk surgery), Treatment of Deep Vein Thrombosis/Pulmonary Embolism, Prevention of systemic embolism - Tissue heart valves, Acute Myocardial Infarction (to prevent systemic embolism), Valvular heart disease, Acute Myocardial Infarction (to prevent systemic embolism), Valvular heart disease, Atrial Fibrillation, Bileaflet mechanical valve in aortic position.2. Mechanical prosthetic valves (high risk), 2.5 - 3.5 Presence of Lupus Anticoagulant or Antiphospholipid Antibodies, Prevention of systemic embolism - Acute Myocardial Infarction (to prevent recurrent infarct). TROP-I HIGH [id number] 18:28:00* Test Item Value Reference Range Interpretation Comme nts TROP-I HIGH SENSITIVITY (test code = TROPIHS) 100.1 ng/L 0-54 H CAUTION: Units o f the current test methodology (ng/L) differfrom the prior test methodology (ng/mL) by a factor of 1000. 99th Percentile Upper Reference Limit (URL):Females: 34 ng/LMales: 54 ng/L In order to distinguish acute elevations of high sensitivitytroponin from other clinical conditions, the FourthUniversal Definition of Myocardial Infarction stressesclinical assessment and the demonstration of a rise and/orfall in serial troponin results above the URL. Results from different methodologies should not be comparedto one another as quantitative results and URLs may varyby method. Completed by Nursing: NOGLUCOSE BEDSIDE [id number] 16:45:00* Test Item Value Reference Range Interpretation Comme nts GLUCOSE BEDSIDE TESTING (hipolito t code = GLUBED) 188 mg/dL 70-110 H - MRI BRAIN W/O [id number] 15:22:00 [facility] : 1950 Sex: M FAX: Eddi Guerra MD [phone] Camps: PM St: ADM FAX: Cheikh Gutierrez MD [phone] Name: FRAN SANTAMARIA Pattison : 1950 Age/S: 71/M [address] [place] Unit #: [id number] Loc: [place] [address] Phys: Eddi Hoff MD Acct: [id number] Dis Date: Status: ADM IN PHONE #: [phone] Exam Date: 05/30/2022 1440 FAX #: Reason: possible cva EXAMS: CPT: [id number] MRI BRAIN W/O CONTRAST [id number] EXAM: - MRI BRAIN W/O CONTRAST CLINICAL INDICATION: possible cva TECHNIQUE: Multiplanar, multisequence MR imaging of the brain was performed utilizing the following imaging sequences: Axial T1, T2, FLAIR, GRE, and DWI; sagittal and coronal T1-weighted images. COMPARISON: CT head and CTA head/neck 05/29/2022 LOCATION: [facility] FINDINGS: No evidence of acute infarct. Left frontal lobe encephalomalacia noted. Mild increased T2 signal involving the medial right cerebellum, favoring crossed cerebellar diaschisis. No acute intracranial hemorrhage or extra-axial fluid collections identified. There is a 2.1 x 1.9 cm extra-axial mass noted at the left frontoparietal convexity, favoring meningioma. No midline shift or herniation. There is moderate cerebral volume loss with associated ex vacuo dilation of the lateral ventricles. The major vessel T2 flow-voids are well-maintained throughout the brain. The globes are intact and symmetric in volume with no evidence of pre or post septal pathology. There is evidence of prior bilateral cataract surgery. There is complete fluid opacification of the leftsphenoid sinus and left posterior ethmoid air cells. Minimal because of thickening in the dependentleft maxillary sinus. The mastoid air cells are clear. IMPRESSION: No evidence of acute infarct or hemorrhage. Moderate cerebral volume loss. Left frontoparietal convexity meningioma again noted. 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 PAGE 1 Signed Report (CONTINUED) FAX: Eddi Guerra MD [phone] Camps: PM St: ADM FAX: Cheikh Gutierrez MD [phone] Name: FRAN SANTAMARIA [facility] : 1950 Age/S: 71/M [id number] [place] Unit #: [id number] Loc: [place] [address] Phys: Eddi Hoff MD Acct: [id number] Dis Date: Status: ADM IN PHONE #: [phone] Exam Date: 05/30/2022 1440 FAX #: Reason: possible cva EXAMS: CPT: [id number] MRI BRAIN W/O CONTRAST [id number] (Continued) at 1522 Reported and signed by: Jun Vincent D.O. CC: Eddi Hoff MD; Cheikh Gutierrez MD Technologist:RT Khang(R)(CT)(MR) Transcribed Date/Time/By: 05/30/2022 (1522) :[email or web address] Orig Print D/T: S: 05/30/2022 (6379) PAGE 2 Signed ReportTHROMBOPLASTIN TIME [id number] 15:09:00* Test Item Value Reference Range Interpretation Comme nts THROMBOPLASTIN TIME PARTIAL (test code = PTT) 79.4 SECONDS 26-35 H GLUCOSE BEDSIDE [id number] 12:42:00* Test Item Value Reference Range Interpretation Comme nts GLUCOSE BEDSIDE TESTING (hipolito t code = GLUBED) 103 mg/dL 70-110 N GLUCOSE BEDSIDE [id number] 08:23:00* Test Item Value Reference Range Interpretation Comme nts GLUCOSE BEDSIDE TESTING (hipolito t code = GLUBED) 192 mg/dL 70-110 H GLYCOSYLATED HEMOGLOBIN [id number] 06:37:00* Test Item Value Reference Range Interpretation Comme nts GLYCOSYLATED HEMOGLOBIN (HA1 C) (test code = GLYHGB) 6.0 % A1C 0.0-5.7 H ESTIMATED AVERAGE GLUCOSE (t est code = EAG) 126 MG/DLest CBC W/AUTO [id number] 05:56:00* Test Item Value Reference Range Interpretation Comme nts WHITE BLOOD CELL (test code = WBC) 6.6 K/mm3 3.5-11.0 N RED BLOOD CELL (test code = RBC) 4.26 M/mm3 4.70-6.10 L HEMOGLOBIN (test code = HGB) 10.2 G/DL 12.3-15.9 L HEMATOCRIT (test code = HCT) 32.3 % 35.8-46.7 L MEAN CELL VOLUME (test code = MCV) 75.8 Fl 86.3-98.9 L MEAN CELL HGB (test code = MCH) 23.9 pg 28.9-34.4 L MEAN CELL HGB CONCETRATION (test code = MCHC) 31.6 G/DL 32.1-34.5 L RED CELL DISTRIBUTION WIDTH (test code = RDW) 16.2 SD 11.5-14.5 H PLATELET COUNT (test code = PLT) 210 K/mm3 150-450 N MEAN PLATELET VOLUME (test c ode = MPV) 9.80 fL 7.0-9.6 H NEUTROPHIL % (test code = NT%) 62.1 % 40-76 IMMATURE GRANULOCYTE % (test code = IG%) 0.9 % 0.0-5.0 N LYMPHOCYTE % (test code = LY%) 14.0 % 20.5-51.1 L MONOCYTE % (test code = MO%) 12.2 % 1.7-9.3 H EOSINOPHIL % (test code = EO%) 9.6 % 0.0-6.0 H BASOPHIL % (test code = BA%) 1.2 % 0.0-2.0 N NUCLEATED RBC % (test code = NRBC%) 0.0 /100WBC% 0.0-1.0 N NEUTROPHIL # (test code = NT#) 4.1 K/mm3 1.8-7.6 N IMMATURE GRANULOCYTE # (test code = IG#) 0.06 x10 3/uL 0.00-0.03 H LYMPHOCYTE # (test code = LY#) 0.9 K/mm3 0.6-3.0 N MONOCYTE # (test code = MO#) 0.8 K/mm3 0.2-1.5 N EOSINOPHIL # (test code = EO#) 0.6 K/mm3 0.0-0.4 H BASOPHIL # (test code = BA#) 0.1 K/mm3 0.0-0.2 N NUCLEATED RBC # (test code = NRBC#) 0.0 K/mm3 0.00-0.01 N MANUAL DIFF REQUIRED (test c ode = MDIFF) NO DIFF/SCN CRITERIA Comment: IF NOT ALREADY DONE WITHIN THE LAST 24 HOURSTHROMBOPLASTIN TIME PARTIAL 2022-05-30 05:50:00* Test Item Value Reference Range Interpretation Comme nts THROMBOPLASTIN TIME PARTIAL (test code = PTT) 27.6 SECONDS 26-35 N BASIC METABOLIC [id number] 05:43:00* Test Item Value Reference Range Interpretation Comme nts SODIUM (test code = NA) 135 mmol/L 134-147 N POTASSIUM (test code = K) 3.7 mmol/L 3.4-5.0 N CHLORIDE (test code = CL) 102 mmol/L 100-108 CARBON DIOXIDE (test code = CO2) 27 mmol/L 21-32 N ANION GAP (test code = GAP) 6.0 GAP calc 4.0-15.0 N GLUCOSE (test code = GLU) 123 MG/DL 70-110 H BLOOD UREA NITROGEN (test code = BUN) 5 MG/DL 7-18 L GLOMERULAR FILTRATION RATE (test code = GFR) >=60 max estimate estGFR >60 The Glomerular Filtration Rate is a calculated parameterbased on serum Creatinine, patient age and sex. GFR valuesless than 60 mL/min/1.73 square meters are indicative ofChronic Kidney Disease. Values less than 15 mL/min/1.73square meters indicate Kidney failure. The calculation forGFR is based on the CKD-EPI (2020) calculation. This formulais race indifferent and is the recommended formula for GFRby the National Kidney Foundation for Adults.The GFR will not calculate if the sex is unknown or if thepatient's age is <18 years. CREATININE (test code = CREAT) 0.8 MG/DL 0.8-1.3 N CALCIUM (test code = CA) 8.9 MG/DL 8.5-10.1 N LIPID PROFILE (CORONARY RISK)2022-05-30 05:43:00* Test Item Value Reference Range Interpretation Comme nts TRIGLYCERIDES (test code = TRIG) 71 MG/DL 0-150 N CHOLESTEROL (test code = CHOL) 92 MG/DL 133-200 L CHOLESTEROL/HDL RATIO (test code = CHOLHDL) 1.96 RATIO See_Comment RISK ASSOCIATED WITH CHOL/HDL RATIOS: RISK MALE FEMALE1/2 AVERAGE 3.43 3.27AVERAGE 4.97 4.442X AVERAGE 9.55 7.053X AVERAGE 23.39 11.04 NOTE THAT THE REFERENCE VALUE IS RELATED TO RISK LEVELS ASRECOMMENDED BY THE [facility]. [Automated message] The system which generated this result transmitted reference range: 0-. The reference range was not used to interpret this result as normal/abnormal. HDL CHOLESTEROL (test code = HDL) 47 MG/DL 40-59 N NON-HDL CHOLESTEROL (test code = NHDL) 45 mg/dL <130 LIPOPROTEIN LDL (test code = LDL) 43 MG/DL 0-129 N <100 [id number] 0 - 129 NEAR OPTIMAL/ABOVE [id number] - 159 [id number] - 189 HIGH>OR= 190 VERY HIGHNOTE THAT GUIDELINES ARE PROVIDED BY NATIONAL CHOLESTEROLEDUCATION PROGRAM ADULT TREATMENT PANEL III LDL/HDL (test code = LDL/HDL) 0.91 Ratio See_Comment L [Automated Yoicsa ge] The system which generated this result transmitted reference range: 1.48-3.22 Avg. The reference range was not used to interpret this result as normal/abnormal. TROP-I HIGH [id number] 04:54:00* Test Item Value Reference Range Interpretation Comme nts TROP-I HIGH SENSITIVITY (test code = TROPIHS) 223.5 ng/L 0-54 HH CAUTION: Units o f the current test methodology (ng/L) differfrom the prior test methodology (ng/mL) by a factor of 1000. 99th Percentile Upper Reference Limit (URL):Females: 34 ng/LMales: 54 ng/L In order to distinguish acute elevations of high sensitivitytroponin from other clinical conditions, the FourthUniversal Definition of Myocardial Infarction stressesclinical assessment and the demonstration of a rise and/orfall in serial troponin results above the URL. Results from different methodologies should not be comparedto one another as quantitative results and URLs may varyby method. Completed by Nursing: YESTroponin I Result: .Performed By: .If Critical Value, Physician Notified: .Date & Time Test Performed: .UA RFLX MICR CULT IF INDICATED 2022-05-29 17:15:00* Test Item Value Reference Range Interpretation Comme nts UA COLOR (test code = COLU) YELLOW discript YEL/STRAW UA APPEARANCE (test code = APPU) HAZY discript CLEAR A UA GLUCOSE DIPSTICK (test code = DGLUU) NEGATIVE mg/dL NEG UA BILIRUBIN DIPSTICK (test code = BILU) NEGATIVE mg/dL NEG UA KETONE DIPSTICK (test code = KETU) NEGATIVE mg/dL NEG UA SPECIFIC GRAVITY (test code = SGU) <=1.005 SG 1.005-1.030 UA BLOOD DIPSTICK (test code = ISAURA) 1+ mg/DL NEG A UA PH DIPSTICK (test code = RAKESH) 7.5 pH UNITS 5.0-7.0 A UA PROTEIN DIPSTICK (test code = PROU) NEGATIVE mg/dL NEG UA UROBILINIOGEN DIPSTICK (test code = URO) 0.2 mg/dL <2.0 UA NITRITE DIPSTICK (test code = FABIANA) NEGATIVE SCREEN NEG UA LEUKOCYTE ESTERASE DIPSTICK (test code = LEUU) NEGATIVE Leuk/mcL NEGATIVE UA CULTURE NEEDED? (test code = UACULT) NO, WBC<10 Criteria Culture CHK UA WBC (test code = WBCU) 0-1 #WBC/HPF 0-3 UA RBC (test code = RBCU) 5-10 #RBC/HPF 0-3 A UA BACTERIA (test code = BACU) 1+ /HPF NONE-TRACE A UA SQUAMOUS CELLS (test code = SQU) TRACE /HPF NONE UA MUCUS (test code = MUCU) TRACE /LPF NONE SEEN Indication for culture: Suprapubic PainBASIC METABOLIC [id number] 16:03:00 * Test Item Value Reference Range Interpretation Comme nts SODIUM (test code = NA) 129 mmol/L 134-147 L POTASSIUM (test code = K) 3.7 mmol/L 3.4-5.0 N CHLORIDE (test code = CL) 93 mmol/L 100-108 L CARBON DIOXIDE (test code = CO2) 29 mmol/L 21-32 N ANION GAP (test code = GAP) 7.0 GAP calc 4.0-15.0 N GLUCOSE (test code = GLU) 168 MG/DL 70-110 H BLOOD UREA NITROGEN (test code = BUN) 8 MG/DL 7-18 N GLOMERULAR FILTRATION RATE (test code = GFR) >=60 max estimate estGFR >60 The Glomerular Filtration Rate is a calculated parameterbased on serum Creatinine, patient age and sex. GFR valuesless than 60 mL/min/1.73 square meters are indicative ofChronic Kidney Disease. Values less than 15 mL/min/1.73square meters indicate Kidney failure. The calculation forGFR is based on the CKD-EPI (2020) calculation. This formulais race indifferent and is the recommended formula for GFRby the National Kidney Foundation for Adults.The GFR will not calculate if the sex is unknown or if thepatient's age is <18 years. CREATININE (test code = CREAT) 0.9 MG/DL 0.8-1.3 N CALCIUM (test code = CA) 9.9 MG/DL 8.5-10.1 N Completed by Nursing: NOTROP-I HIGH [id number] 16:03:00* Test Item Value Reference Range Interpretation Comme nts TROP-I HIGH SENSITIVITY (test code = TROPIHS) 160.5 ng/L 0-54 HH CAUTION: Units o f the current test methodology (ng/L) differfrom the prior test methodology (ng/mL) by a factor of 1000. 99th Percentile Upper Reference Limit (URL):Females: 34 ng/LMales: 54 ng/L In order to distinguish acute elevations of high sensitivitytroponin from other clinical conditions, the FourthUniversal Definition of Myocardial Infarction stressesclinical assessment and the demonstration of a rise and/orfall in serial troponin results above the URL. Results from different methodologies should not be comparedto one another as quantitative results and URLs may varyby method. Completed by Nursing: NOTHROMBOPLASTIN TIME [id number] 15:44:00* Test Item Value Reference Range Interpretation Comme nts THROMBOPLASTIN TIME PARTIAL (test code = PTT) 28.9 SECONDS 26-35 N PROTHROMBIN [id number] 15:44:00* Test Item Value Reference Range Interpretation Comme nts PT PATIENT (test code = PTP) 12.8 SECONDS 9.3-12.9 N INTERNATIONAL NORMAL RATIO (test code = INR) 1.12 INR Unit 0.8-1.2 N TARGET INR BY INDICATION Indication INR1. Prophylaxis of venous thrombosis 2.0 - 3.0 (orthopedic surgery), Prophylaxis of venous thrombosis (other than high-risk surgery), Treatment of Deep Vein Thrombosis/Pulmonary Embolism, Prevention of systemic embolism - Tissue heart valves, Acute Myocardial Infarction (to prevent systemic embolism), Valvular heart disease, Acute Myocardial Infarction (to prevent systemic embolism), Valvular heart disease, Atrial Fibrillation, Bileaflet mechanical valve in aortic position.2. Mechanical prosthetic valves (high risk), 2.5 - 3.5 Presence of Lupus Anticoagulant or Antiphospholipid Antibodies, Prevention of systemic embolism - Acute Myocardial Infarction (to prevent recurrent infarct). CBC W/AUTO [id number] 15:34:00* Test Item Value Reference Range Interpretation Comme nts WHITE BLOOD CELL (test code = WBC) 8.7 K/mm3 3.5-11.0 N RED BLOOD CELL (test code = RBC) 4.19 M/mm3 4.70-6.10 L HEMOGLOBIN (test code = HGB) 10.1 G/DL 12.3-15.9 L HEMATOCRIT (test code = HCT) 31.7 % 35.8-46.7 L MEAN CELL VOLUME (test code = MCV) 75.7 Fl 86.3-98.9 L MEAN CELL HGB (test code = MCH) 24.1 pg 28.9-34.4 L MEAN CELL HGB CONCETRATION (test code = MCHC) 31.9 G/DL 32.1-34.5 L RED CELL DISTRIBUTION WIDTH (test code = RDW) 16.2 SD 11.5-14.5 H PLATELET COUNT (test code = PLT) 252 K/mm3 150-450 N MEAN PLATELET VOLUME (test c ode = MPV) 10.00 fL 7.0-9.6 H NEUTROPHIL % (test code = NT%) 79.9 % 40-76 H IMMATURE GRANULOCYTE % (test code = IG%) 1.2 % 0.0-5.0 N LYMPHOCYTE % (test code = LY%) 7.6 % 20.5-51.1 L MONOCYTE % (test code = MO%) 9.4 % 1.7-9.3 H EOSINOPHIL % (test code = EO%) 1.2 % 0.0-6.0 N BASOPHIL % (test code = BA%) 0.7 % 0.0-2.0 N NUCLEATED RBC % (test code = NRBC%) 0.0 /100WBC% 0.0-1.0 N NEUTROPHIL # (test code = NT#) 6.9 K/mm3 1.8-7.6 N IMMATURE GRANULOCYTE # (test code = IG#) 0.10 x10 3/uL 0.00-0.03 H LYMPHOCYTE # (test code = LY#) 0.7 K/mm3 0.6-3.0 N MONOCYTE # (test code = MO#) 0.8 K/mm3 0.2-1.5 N EOSINOPHIL # (test code = EO#) 0.1 K/mm3 0.0-0.4 N BASOPHIL # (test code = BA#) 0.1 K/mm3 0.0-0.2 N NUCLEATED RBC # (test code = NRBC#) 0.0 K/mm3 0.00-0.01 N MANUAL DIFF REQUIRED (test c ode = MDIFF) NO DIFF/SCN CRITERIA - CT ANGIO [id number] 14:48:00 [facility] 1950 Sex: M Name: FRAN SANTAMARIA : 1950 Age/S: 71 / M [address] [address] [place] Unit #: [id number] Loc: [place] [address] Phys: Cami Salomon Jordy DO Acct: [id number] Dis Date: Status: REG ER PHONE #: [phone] Exam Date: 05/29/20221411 FAX #: Reason: ams EXAMS: CPT: [id number] CT ANGIO NECK 112[address] HISTORY: CVA Technique: Axial tomograms through the neck and brain were obtained after intravenous contrast utilizing a CTA protocol. Three-dimensional and multiplanar reformatted images areprovided. Degree of stenosis is calculated based on [...] internal carotid artery is patent throughout its courseto the neck. On the left carotid bifurcation [...] SANTAMARIA : 1950 Age/S: 71 / M [address] [address] [place] Unit #: [id number] Loc: [place] [address] Phys: Cami Salomon Jordy DO Acct: [id number] Dis Date: Status: REG ER PHONE #: [phone] Exam Date: 05/29/2022 1412 FAX #: Reason: ams EXAMS: CPT: [id number] CT ANGIO NECK [address] (Continued) anterior cerebral arteries and middle cerebral arteries are patent bilaterally. No aneurysm identified. No large vessel occlusion or significant intracranial stenosis. An anterior communicating artery is demonstrated. The distal vertebral arteries, basilar artery, and posterior cerebral arteries are patent. The major intracranial venous sinuses are patent. Dural based meningioma at the left vertex is noted. IMPRESSION: 1. Scattered atherosclerotic plaque with mild less than 50% narrowing at the left carotid bifurcation. No other area of significant stenosis. 2. No intracranial large vessel occlusion. at 1448 Reported and signed by: Olegario Griffith M.D. CC: Cami Salomon DO Technolo gist:Carolyn Rizzo RT,(R),(CT) CTDI: DLP: Trnscb Date/Time: 05/29/2022 (1448) [email or web address] Orig PrintD/T: S: 05/29/2022 (3068) PAGE 2 Signed Report- CT ANGIO [id number] 14:48:00 [facility] 1950 Sex: M Name: FRAN SANTAMARIA [facility] : 1950 Age/S: 71 / M [address] [address] [place] Unit #: [id number] Loc: [place] [address] Phys: Cami Salomon DO Acct: [id number] Dis Date: Status: REG ER PHONE #: [phone] Exam Date: 05/29/2022 1415 FAX #: Reason: ams EXAMS: CPT: [id number] CT ANGIO HEAD [address] HISTORY: CVA Technique: Axial tomograms through the [...] bifurcation is patent with moderate atherosclerotic changes. Nosignificant stenosis demonstrated. The right internal carotid artery is patent throughout its course to the neck. On the left carotid bifurcation is patent with moderate atherosclerotic changes. There is mild less than 50% narrowing demonstrated involving the proximal left internal carotid artery.The left internal carotid artery is patent throughout its course. Both vertebral artery origins aredemonstrated and patent. The vertebral arteries are patent throughout their course bilaterally. CTABRAIN: The visualized intracranial internal carotid arteries are patent. The PAGE 1 Signed Report (CONTINUED) Name: FRAN SANTAMARIA [facility] : 1950 Age/S: 71 / M [address] [address] [place] Unit#: [id number] Loc: [place] [address] Phys: Cami Salomon DO Acct: [id number] Dis Date: Status: REG ER PHONE #: [phone] Exam Date: 05/29/2022 1415 FAX #: Reason: ams EXAMS: CPT: [id number] ANGIO HEAD [address]98[address] (Continued) anterior cerebral arteries and middle cerebral arteries are patent bilaterally. No aneurysm identified. No large vessel occlusion or significant intracranial stenosis.An anterior communicating artery is demonstrated. The distal vertebral arteries, basilar artery, and posterior cerebral arteries are patent. The major intracranial venous sinuses are patent. Dural based meningioma at the left vertex is noted. IMPRESSION: 1. Scattered atherosclerotic plaque with mild less than 50% narrowing at the left carotid bifurcation. No other area of significant stenosis. 2. No intracranial large vessel occlusion. at 1448 Reported and signed by: Olegario Griffith M.D. CC: Cami Salomon DO Technologist:Carolyn Rizzo, RT,(R),(CT) CTDI: DLP: Trnscb Date/Time: 05/29/2022 (1448) [email or web address] Orig Print D/T: S: 05/29/2022 (7489) PAGE 2 Signed Report- XR CHEST 1 [id number] 14:44:00 [facility] : 1950 Sex: M Name: FRAN SANTAMARIA [facility] : 1950 Age/S: 71 / M [address] [address] [place] Unit #: [id number] Loc: [place] [address] Phys: Cami Salomon DO Acct: [id number] Dis Date: Status: REG ER PHONE #: [phone] Exam Date: 05/29/2022 1421 FAX #: Reason: Code Stroke EXAMS: CPT: [id number] XR CHEST 1 V 38596 Fluoro Time: DAP (Gy m2): Air Kerma (mGy): HISTORY: CVA Location: C3 COMPARISON:08/08/2018 FINDINGS: Aortic calcifications are present. Heart size and vascularity are within normal limits. The lungs are clear of focal consolidation. No effusion, pneumothorax, or acute osseous abnormality. IMPRESSION: 1. Stable chest. No focal consolidation. at 1444 Reported and signed by: Olegario Griffith M.D. CC: Cami C Salomon DO PAGE 1 Signed Report Name: FRAN SANTAMARIA [facility] : 1950 Age/S: 71 / M [address] [address] [place] Unit #: [id number] Loc: [place] [address] Phys: AimeCami Spence DO Acct: [id number] Dis Date: Status: REG ER PHONE #: [phone] Exam Date: 05/29/2022 1421 FAX #: Reason: Code Stroke EXAMS: CPT: [id number] XR CHEST 1 V 90956 Fluoro Time: DAP (Gy m2): Air Kerma (mGy): (Continued) Technologist: BK BROOKS Trnscb Date/Time: 05/29/2022 (1449) CostaRXC2 PAGE 2 Signed Report - CT HEAD/BRAIN W/O [id number] 14:43:00 [facility] : 1950 Sex: M Name: FRAN SANTAMARIA [facility] : 1950 Age/S: 71 / M [address] [address] [place] Unit #: [id number] Loc: [place] [address] Phys: Cami Salomon DO Acct: [id number] Dis Date: Status: REG ER PHONE #: [phone] Exam Date: 05/29/2022 1405 FAX #: Reason: ams EXAMS: CPT: [id number] CT HEAD/BRAIN W/O CONT 55207 Location code: H5 CT Brain Without Contrast [...] 1 Signed Report (CONTINUED) Name: FRAN SANTAMARIA [facility] : 1950 Age/S: 71 / M [address] [address] [place] Unit #: [id number] Loc: [place] [address] Phys: Cami Salomon DO Acct: [id number] Dis Date: Status: REG ER PHONE #: [phone] Exam Date: 05/29/2022 1405 FAX #: Reason: ams EXAMS: CPT: [id number] CT HEAD/BRAIN W/O CONT 29037 (Continued) at 1443 Reported and signed by: David Silverman M.D. CC: Cami Salomon DO Technologist:Carolyn Rizzo, RT ,(R),(CT) CTDI: DLP: Trnscb Date/Time: 05/29/2022 (1443) [email or web address] Orig Print D/T: S: 05/29/2022 (1446) PAGE 2 Signed ReportGLUCOSE BEDSIDE [id number] 07:59:00* Test Item Value Reference Range Interpretation Comme nts GLUCOSE BEDSIDE TESTING (hipolito t code = GLUBED) 191 mg/dL 70-110 H BASIC METABOLIC [id number] 05:11:00* Test Item Value Reference Range Interpretation Comme nts SODIUM (test code = NA) 136 mmol/L 134-147 N POTASSIUM (test code = K) 3.6 mmol/L 3.4-5.0 N CHLORIDE (test code = CL) 101 mmol/L 100-108 N CARBON DIOXIDE (test code = CO2) 26 mmol/L 21-32 N ANION GAP (test code = GAP) 9.0 GAP calc 4.0-15.0 N GLUCOSE (test code = GLU) 171 MG/DL 70-110 H BLOOD UREA NITROGEN (test code = BUN) 12 MG/DL 7-18 N GLOMERULAR FILTRATION RATE (test code = GFR) >=60 max estimate estGFR >60 CREATININE (test code = CREAT) 0.9 MG/DL 0.8-1.3 N CALCIUM (test code = CA) 7.9 MG/DL 8.5-10.1 L CBC W/AUTO [id number] 05:01:00* Test Item Value Reference Range Interpretation Comme nts WHITE BLOOD CELL (test code = WBC) 6.5 K/mm3 3.5-11.0 N RED BLOOD CELL (test code = RBC) 3.88 M/mm3 4.70-6.10 L HEMOGLOBIN (test code = HGB) 11.3 G/DL 12.3-15.9 L HEMATOCRIT (test code = HCT) 33.5 % 35.8-46.7 L MEAN CELL VOLUME (test code = MCV) 86.3 Fl 86.3-98.9 N MEAN CELL HGB (test code = MCH) 29.1 pg 28.9-34.4 N MEAN CELL HGB CONCETRATION ( test code = MCHC) 33.7 G/DL 32.1-34.5 N RED CELL DISTRIBUTION WIDTH (test code = RDW) 13.4 SD 11.5-14.5 N PLATELET COUNT (test code = PLT) 139.0 K/mm3 150-450 L MEAN PLATELET VOLUME (test c ode = MPV) 11.70 fL 7.0-9.6 H NEUTROPHIL % (test code = NT%) 65.5 [...] K/mm3 0.0-0.2 N MANUAL DIFF REQUIRED (test c ode = MDIFF) NO DIFF/SCN CRITERIA URINALYSIS [id number] 21:02:00* Test Item Value Reference Range Interpretation Comme nts UA COLOR (test code = COLU) YELLOW discript YEL/STRAW UA APPEARANCE (test code = APPU) CLEAR discript CLEAR UA GLUCOSE DIPSTICK (test code = DGLUU) TRACE mg/dL NEG A UA BILIRUBIN DIPSTICK (test code = BILU) NEGATIVE mg/dL NEG UA KETONE DIPSTICK (test code = KETU) NEGATIVE mg/dL NEG UA SPECIFIC GRAVITY (test code = SGU) <=1.005 SG 1.005-1.030 UA BLOOD DIPSTICK (test code = ISAURA) NEGATIVE mg/DL NEG UA PH DIPSTICK (test code = RAKESH) 6.0 pH UNITS 5.0-7.0 UA PROTEIN DIPSTICK (test code = PROU) NEGATIVE mg/dL NEG UA UROBILINIOGEN DIPSTICK (test code = URO) 0.2 mg/dL <2.0 UA NITRITE DIPSTICK (test code = FABIANA) NEGATIVE SCREEN NEG UA LEUKOCYTE ESTERASE DIPSTICK (test code = LEUU) NEGATIVE Leuk/mcL NEGATIVE GLUCOSE BEDSIDE [id number] 20:47:00* Test Item Value Reference Range Interpretation Comme nts GLUCOSE BEDSIDE TESTING (hipolito t code = GLUBED) 199 mg/dL 70-110 H GLUCOSE BEDSIDE [id number] 17:00:00* Test Item Value Reference Range Interpretation Comme nts GLUCOSE BEDSIDE TESTING (hipolito t code = GLUBED) 219 mg/dL 70-110 H GLUCOSE BEDSIDE [id number] 13:26:00* Test Item Value Reference Range Interpretation Comme nts GLUCOSE BEDSIDE TESTING (hipolito t code = GLUBED) 185 mg/dL 70-110 H - MRI BRAIN W/O [id number] 11:53:00FAX: Cheikh Gutierrez MD [phone] Camps: PM St: ADM Name: FRAN SANTAMARIA [facility] : 1950 Age/S: 67/M [address] [address] [place] Unit #: [id number] Loc: [address] [place] [address] Phys: Cheikh Gutierrez MD Acct:[id number] Dis Date: Status: ADM IN PHONE #: [phone] Exam Date: 08/09/2018 6321 FAX #: Reason: Brain Mass EXAMS: CPT: [id number] MRI BRAIN W/O CONTRAST 29966 Location: T 18 MRI brain, 08/09/18COMPARISON EXAM : Head CT exam 08/08/18 TECHNIQUE: [...] parenchyma on T1-weighted imaging and slightly higher thanbrain on T2-weighted imaging. It measures 2.1 cm in AP dimension by 2.1 cm in transverse size by approximately 12 mm in cc dimension and is likely indicative of a dural-based meningioma. It exhibits minimal local mass effect on the left frontal lobe without associated edema. 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 This is of moderate size with cystic encephalomalacia. No acute vascular insult is identified in this patient. 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 There is normal flow void involving [...] meningioma. No other space-occupying process. Doubt other extra- axial lesions accounting for the findings PAGE 1 Signed Report (CONTINUED) FAX: Cheikh Gutierrez MD [phone] Camps: PM St: ADM -- Name: FRAN SANTAMARIA [facility] : 1950 Age/S: 67/M [address] [facility] Unit #: [id number] Loc: [address] [address] Phys: Cheikh Gutierrez MD Acct: [id number] Dis Date: Status: ADM IN PHONE #: [phone] Exam Date: 08/09/2018 1137 FAX #: Reason: Brain Mass EXAMS: CPT: [id number] BRAIN W/O CONTRAST 43008 (Continued) No acute vascular insult. No intracranial hemorrhage. 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 Chronic microvascular changes elsewhere. at 1153 Reported and signed by: Daina Viera M.D. CC: Cheikh Gutierrez MD Technologist: Mainor Schreiber, RT(R)(CT) Transcribed Date/Time/By: 08/09/2018 (6743) :[email or web address] Orig Print D/T: S: 08/09/2018 (1768) PAGE 2 Signed ReportGLUCOSE BEDSIDE [id number] 07:25:00* Test Item Value Reference Range Interpretation Comme nts GLUCOSE BEDSIDE TESTING (hipolito t code = GLUBED) 170 mg/dL 70-110 H GLUCOSE BEDSIDE [id number] 22:47:00* Test Item Value Reference Range Interpretation Comme nts GLUCOSE BEDSIDE TESTING (hipolito t code = GLUBED) 207 mg/dL 70-110 H COMPREHENSIVE METABOLIC [id number] 20:45:00* Test Item Value Reference Range Interpretation Comme nts SODIUM (test code = NA) 135 mmol/L 134-147 N POTASSIUM (test code = K) 4.0 mmol/L 3.4-5.0 N CHLORIDE (test code = CL) 100 mmol/L 100-108 N CARBON DIOXIDE (test code = CO2) 24 mmol/L 21-32 N ANION GAP (test code = GAP) 11.0 GAP calc 4.0-15.0 N GLUCOSE (test code = GLU) 238 MG/DL 70-110 H BLOOD UREA NITROGEN (test co de = BUN) 10 MG/DL 7-18 N GLOMERULAR FILTRATION RATE (test code = GFR) 54 estGFR >60 L CREATININE (test code = CREAT) 1.4 MG/DL 0.8-1.3 H TOTAL PROTEIN (test code = PROT) 6.9 G/DL 6.4-8.2 N ALBUMIN (test code = ALB) 3.3 G/DL 3.4-5.0 L GLOBULIN (test code = GLOB) 3.6 GM/dL ALBUMIN/GLOBULIN RATIO (test code = A/G) 0.9 RATIO 1.2-2.2 L CALCIUM (test code = CA) 8.0 MG/DL 8.5-10.1 L BILIRUBIN TOTAL (test code = BILT) 0.60 MG/DL 0.2-1.2 N SGOT/AST (test code = AST) 22 Unit/L 15-37 N SGPT/ALT (test code = ALT) 39 Unit/L 12-78 N ALKALINE PHOSPHATASE TOTAL (test code = ALKP) 75 Unit/L 50-136 N Completed by Nursing: [id number] 20:45:00* Test Item Value Reference Range Interpretation Comme nts MAGNESIUM (test code = MAG) 1.6 MG/DL 1.8-2.4 L Completed by Nursing: NONT PRO-BRAIN NATRIURETIC [id number] 20:45:00* Test Item Value Reference Range Interpretation Comme nts NT PRO-BRAIN NATRIURETIC PEP TI (test code = PROBNP) 559 PG/ML 0-100 H Completed by Nursing: [id number] 20:45:00* Test Item Value Reference Range Interpretation Comme nts TROPONIN-I (test code = TROPI) 0.023 NG/ML 0.000-0.045 N Negative: </= 0. 045 Positive: >/= 0.046 Correlation with serial results, other cardiac markers, and clinical findings is necessary to determine the clinical significance of this result. Quantitative results using different methodologies should not be compared to one another as numerical results may varyby method. Completed by Nursing: NO- CT HEAD/BRAIN W/O [id number] 20:36:00Name: FRAN SANTAMARIA [facility] : 1950 Age/S: 67 / M [address] [place] Unit #: [id number] Loc: [place] [address] Phys: Crissy Anders MD Acct: [id number] Dis Date: Status: REGER PHONE #: [phone] Exam Date: 08/08/20182024 FAX #: Reason: RLE weakness; eval for stroke EXAMS: CPT: [id number] CT HEAD/BRAIN W/O CONT 23416 CT HEAD WITHOUT CONTRAST. HISTORY: RLE weakness; eval for stroke COMPARISON: No comparison is available. TECHNIQUE: [...] Atherosclerotic calcifications affect the vertebral arteries and carotid siphons. No other intracranial abnormalities such as hemorrhage, [...] 1 Signed Report (CONTINUED) Name: FRAN SANTAMARIA [place] : 1950 Age/S: 67 / M [address] [place] Unit #: [id number] Loc: [place] [address] Phys: Crissy Anders MD Acct: [id number] Dis Date: Status: REG ER PHONE #: [phone] Exam Date: 08/08/20182024 FAX #: Reason: RLE weakness; eval for stroke EXAMS: CPT: [id number] CT HEAD/BRAIN W/O CONT 69115 (Continued) at 2035 Reported and signed by: Hua Anaya M.D. CC: Crissy Anders MD Technologist:Damon Kat RT(R)(CT) CTDI: DLP: Trnscb Date/Time: 08/08/2018 (2035) [email or web address] Orig Print D/T: S: 08/08/2018 (2038) CTDI: DLP: PAGE 2 Signed Report- XR CHEST 1 V 2018-08-08 20:35:00Name: FRAN SANTAMARIA [facility] : 1950 Age/S: 67 / M [address] [place] Unit #: [id number] Loc: [place] [address] Phys: Crissy Anders MD Acct: [id number] Dis Date: Status: REG ER PHONE #: [phone] Exam Date: 08/08/20182029 FAX #: Reason: RLE weakness; eval for stroke EXAMS: CPT: [id number] XR CHEST 1 V 61587 Fluoro Time: DAP (Gy m2): Air Kerma (mGy): LOCATION: Q15 HISTORY: 67-year-old male with right lower extremity weakness. COMMENT: A frontal chest radiograph was obtained at the bedside at 8:02 p.m. The lungs are clear and well-aerated. The cardiac silhouette, danelle, and mediastinum are within normal limits. The skeleton is intact, and the surrounding soft tissues are unremarkable. Cardiac monitoring leads are present. IMPRESSION: Unremarkable portable examination of the chest. at 2034 Reported and signed by: Olegario Omalley M.D. CC: Crissy Anders MD PAGE 1 Signed Report Name: [facility] 1950 Age/S: 67 / M [address] [place] Unit #: [id number] Loc: [place] [address] Phys: Crissy Anders MD Acct: [id number] Dis Date: Status: REG ER PHONE #: [phone] Exam Date: 08/08/20182029 FAX #: Reason: RLE weakness; eval for stroke EXAMS: CPT: [id number] XR CHEST 1 V 93983 Fluoro Time: DAP (Gy m2): Air Kerma (mGy): (Continued) Technologist:Damon Kat, RT(R)(CT) Trnscb Date/Time: 08/08/2018 (2034) [email or web address] Orig Print D/T: S: 08/08/2018 (2037) PAGE 2 Signed ReportCBC W/AUTO [id number] 20:22:00* Test Item Value Reference Range Interpretation Comme nts WHITE BLOOD CELL (test code = WBC) 11.8 K/mm3 3.5-11.0 H RED BLOOD CELL (test code = RBC) 4.14 M/mm3 4.70-6.10 L HEMOGLOBIN (test code = HGB) 12.3 G/DL 12.3-15.9 N HEMATOCRIT (test code = HCT) 36.4 % 35.8-46.7 N MEAN CELL VOLUME (test code = MCV) 87.9 Fl 86.3-98.9 N MEAN CELL HGB (test code = MCH) 29.7 pg 28.9-34.4 N MEAN CELL HGB CONCETRATION ( test code = MCHC) 33.8 G/DL 32.1-34.5 N RED CELL DISTRIBUTION WIDTH (test code = RDW) 13.4 SD 11.5-14.5 N PLATELET COUNT (test code = PLT) 146.0 K/mm3 150-450 L MEAN PLATELET VOLUME (test c ode = MPV) 10.60 fL 7.0-9.6 H NEUTROPHIL % (test code = NT%) 85.3 [...] K/mm3 0.0-0.2 N MANUAL DIFF REQUIRED (test c ode = MDIFF) NO DIFF/SCN CRITERIA Notes Date/Time Note Provider Source 2022-06-10 18:02:00 [id number] hWONFj2P7OiD5g4xibWoZfVxipeus anU6L37YFScnG3wxS4vbRBfqdQl8653-70-58R21:02:00 [facility] ([facility])Wound Care Progress NoteREPORT#:[id number] REPORT STATUS: SignedDATE:06/10/22 TIME:1801 PATIENT: FRAN SANTAMARIA UNIT #: [id number]#: [id number] [id number]: [address] AGE: 71 SEX: M ATTEND: Heidy Gutierrezhosh MDADM AUTHOR: Yakov Kate MD * ALL edits or amendments must be made on the electronic/computer document * SubjectiveChief complaint:Wound CareHPI:no acute eventsUnable to obtain: medical condition Objective GeneralVS:Last Documented: Result Date Time Pulse Ox 100 06/10 1710 B/P 144/68 06/10 1710 B/P Mean 93.2 06/10 1710 O2 Delivery Room air 06/10 1710 Temp 98.2 06/10 1710 Pulse 73 06/10 1710 Resp 14 06/10 1710 PATIENT WEIGHT: Weight (lb): Weight (oz): Weight (kg): 71.400 Medications:Active Meds + DC'd Last 24 HrsDivalproex Sodium (DEPAKOTE) 500 MG BID PO Lisinopril (ZESTRIL) 2.5 MG DAILY PO Metoprolol Succinate (TOPROL XL) 25 MG DAILY PO Apixaban (ELIQUIS) 5 MG Q12HR PO Atorvastatin Calcium (LIPITOR) 40 MG BEDTIME PO Aspirin (ECOTRIN) 81 MG DAILY PO Citalopram Hydrobromide (CeleXA) 10 MG DAILY PO Finasteride (PROSCAR) 5 MG DAILY PO Ketoconazole (Nizoral 2% Shampoo 120 ML) 1 APPLIC DAILY TOPICAL Oxybutynin Chloride (DITROPAN) 5 MG BID PO Tamsulosin HCl (FLOMAX) 0.8 MG DAILY PO Insulin Human Lispro (HUMALOG) S/SCALE LOW AC HS SUBQ Dextrose/Water (Dextrose 50% W SYRINGE) 50 ML ASDIR PRN IV (CKD) Docusate Sodium (COLACE) 100 MG Q12H PRN PRN PO Trazodone HCl (DESYREL) 150 MG BEDTIME PRN PO Dietitian Nutrition assessmentThe data set between the solid lines has been imported from the dietitian's assessment. BMI Calculated: 20.2Nutrition related diagnosis: Nutrition diagnosis details: Nutrition problem: Increased nutrient needsNutrition etiology: Wound healingNutrition signs and symptoms: Increased protein needs for, wound healingNutrition prescription: Recommend continue cardiac easy to chew diet with Glucerna supplements.Dietitian name: Andrés Street, DIETAssessment completed: 06/08/22 Physical ExamGeneral appearance: chronically ill appearingRespiratory: no distressAbdomen: non-tenderExtremities: no edema Wound AssessmentWound Assessment 1: Type/cause: pressure Wound location: heel Tissue layers: limited to skin breakdown Site condition: no drainage, no ecchymosis, no erythema Stage of pressure ulcer: stage IWound Assessment 2: Type/cause: chronic Wound location: foot Site condition: no drainage, no ecchymosis, no erythemaWound Assessment 3: Type/cause: pressure Wound location: buttock Site condition: no drainage, no ecchymosis, no erythema Stage of pressure ulcer: stage II Diagnosis, Assessment PlanProblem List/A P: 1. Decubitus ulcer of buttock, [...] air 5. Altered mental status Consultants: cardiology at 1803 RPT #: [id number] OF REPORT PNProcedure qbnm8047-57-81E49:02:00L.SHOO72928726-0602VGGjjxb able for patient blhjNRHEYMSTJEEXTS6674-24-25N24:03:32 [facility] 2022-06-10 10:31:00 [id number] KCCNMYklAqHqlJns6GzJzMyxDVyJF 1iWo3OMpvwOmHR1DQ6XfUFjbZoo4386-68-40I50:31:00 [facility] ([facility])Hospitalist Progress NoteREPORT#:[id number] REPORT STATUS: SignedDATE:06/10/22 TIME:1031 PATIENT: FRAN SANTAMARIA UNIT #: [id number]#: [id number] [id number]: [address] AGE: 71 SEX: M ATTEND: Cheikh Gutierrez AUTHOR: Anneliese Eden MD * ALL edits or amendments must be made on the electronic/computer document * SubjectiveChief complaint:No acute eventsHPI:71-year-old male with PMHx of massive CVA x5 (per patient), hypertension, atrialfibrillation, diabetes mellitus, coronary artery disease, status post stent placement presented to the ED for altered mental status. Of note, it was unclear when the patient was last seen at his normal baseline mental status. The staff at his nursing facility noticed that he had repetitive speech today. In the ED, his NIH score was reported as 0. Head CT and CTA no acute findings or significant stenosis. He was not a candidate for tPA or endovascular therapydue to the time of onset of his symptoms and because the patient is on Eliquis. EKG showed A-fib with HR 77. UA negative for UTI. Found elevated troponin. Vitals stable. Upon my evaluation patient is alert, orientated x4, appearing hismentation back to at his baseline. He is a good historian. Denies dizziness, chest pain, shortness of breath, abdominal pain, or nausea vomiting. Patient isincontinence. Patient just wants to be changed. Noted involuntary jerking movement of the left upper extremity. Patient states he usually has low BP. BP nl during ED stay. He is admitted for further evaluation and management. Objective Physical ExamGeneral appearance: awakeHead/Eyes: atraumatic, normal conjunctiva/sclera, normal eyelids/periorb., normocephalic, PERRLENT: moist mucosal membranesNeck: full range of motion, normal thyroid, supple/no meningismus, no JVD, no masses or swellingCardiovascular: normal capillary refill, normal heart sounds, regular rate rhythmRespiratory: aerating well, clear to auscultation, symmetric expansion, no distressAbdomen: non-tender, normal bowel sounds, soft, no distentionGenitourinary: urine, no flank painExtremities: normal capillary refill, no cyanosis, no edemaMusculoskeletal: normal inspectionNeuro/OPAL MINER: right hemiparesis, alert, oriented X 3, normal speech, no sensory deficitsSkin: normal color, normal temperatureLymphatics: no lymphadenopathyPsychiatry: anxious Diagnosis, Assessment PlanConsultants: cardiology Free Text DxA P NotesFree text DxA P notes:71 yo male with PMHX of multiple CVAx5, CAD, HTN, DM2 admitted for 1. Acute metabolic encephalopathy-Baseline dementia-resolved and back to baseline, MRI brain shows no acute process - Left frontoparietal convexity meningioma again noted-Concern is that of seizure with postictal confusion. Neurology added depakote appearing back to his baseline no obvious convincing metabolic or neurologic etiology head CT/CTA no significant acute abnormality 2. Elevated troponin-type II TN trended troponin x3 Monitor on the telemetry pt is on Eliquis for A-fib 3. Hyponatremia - resolved unknown etiology Resolved with IVF, BS control, repeat bmp home med HCTZ 5. Atrial fibrillation - rate controlled continue Eliquis not on BB HR controlled 6. DM2 ACHS SSI VTE ppx: on EliquisFull code Work-up negative, symptoms resolved, back to baseline Discussed with Daughter and [facility] - Consulted CMAwaiting placementPossible DC once placement is arranged Patient is medically stableTried contacting sister regarding dispositionWill DC home with home health Likely discharge to personal-half-way Saturday -family agreeable at 1032 RPT #: [id number] OF REPORT PRProgress ogjp5067-49-13R00:31:00L.SEPI28598954-6374EGPyngn able for patient vhxnWWRQGGLRLPQASM2747-52-98A33:32:34 [facility] 2022-06-10 10:30:00 [id number] GbPkjLgdArspQ9ucO9GHBQwYmN3oV ydGGIK8RatISdVj/3eN7Yi+EAkd2018-35-30B80:30:00 [facility] ([facility])Hospitalist Progress NoteREPORT#:[id number] REPORT STATUS: SignedDATE:06/10/22 TIME:1030 PATIENT: FRAN SANTAMARIA UNIT #: [id number]#: [id number] [address] AGE: 71 SEX: M ATTEND: Cheikh Gutierrez AUTHOR: Anneliese Eden MD * ALL edits or amendments must be made on the electronic/computer document * SubjectiveChief complaint:No acute eventsHPI:71-year-old male with PMHx of massive CVA x5 (per patient), hypertension, atrialfibrillation, diabetes mellitus, coronary artery disease, status post stent placement presented to the ED for altered mental status. Of note, it was unclear when the patient was last seen at his normal baseline mental status. The staff at his nursing facility noticed that he had repetitive speech today. In the ED, his NIH score was reported as 0. Head CT and CTA no acute findings or significant stenosis. He was not a candidate for tPA or endovascular therapydue to the time of onset of his symptoms and because the patient is on Eliquis. EKG showed A-fib with HR 77. UA negative for UTI. Found elevated troponin. Vitals stable. Upon my evaluation patient is alert, orientated x4, appearing hismentation back to at his baseline. He is a good historian. Denies dizziness, chest pain, shortness of breath, abdominal pain, or nausea vomiting. Patient isincontinence. Patient just wants to be changed. Noted involuntary jerking movement of the left upper extremity. Patient states he usually has low BP. BP nl during ED stay. He is admitted for further evaluation and management. Objective Physical ExamGeneral appearance: awakeHead/Eyes: atraumatic, normal conjunctiva/sclera, normal eyelids/periorb., normocephalic, PERRLENT: moist mucosal membranesNeck: full range of motion, normal thyroid, supple/no meningismus, no JVD, no masses or swellingCardiovascular: normal capillary refill, normal heart sounds, regular rate rhythmRespiratory: aerating well, clear to auscultation, symmetric expansion, no distressAbdomen: non-tender, normal bowel sounds, soft, no distentionGenitourinary: urine, no flank painExtremities: normal capillary refill, no cyanosis, no edemaMusculoskeletal: normal inspectionNeuro/OPAL MINER: right hemiparesis, alert, oriented X 3, normal speech, no sensory deficitsSkin: normal color, normal temperatureLymphatics: no lymphadenopathyPsychiatry: anxious Diagnosis, Assessment PlanConsultants: cardiology Free Text DxA P NotesFree text DxA P notes:71 yo male with PMHX of multiple CVAx5, CAD, HTN, DM2 admitted for 1. Acute metabolic encephalopathy-Baseline dementia-resolved and back to baseline, MRI brain shows no acute process - Left frontoparietal convexity meningioma again noted-Concern is that of seizure with postictal confusion. Neurology added depakote appearing back to his baseline no obvious convincing metabolic or neurologic etiology head CT/CTA no significant acute abnormality 2. Elevated troponin-type II TN trended troponin x3 Monitor on the telemetry pt is on Eliquis for A-fib 3. Hyponatremia - resolved unknown etiology Resolved with IVF, BS control, repeat bmp home med HCTZ 5. Atrial fibrillation - rate controlled continue Eliquis not on BB HR controlled 6. DM2 ACHS SSI VTE ppx: on EliquisFull code Work-up negative, symptoms resolved, back to baseline Discussed with Daughter and she's [facility] - Consulted CMAwaiting placementPossible DC once placement is arranged Patient is medically stableTried contacting sister regarding dispositionWill DC home with home health Family appealed discharge -we will discussed with case management at 1031 RPT #: [id number] OF REPORT PRProgress zaqs0962-66-12X50:30:00L.[id number] able for patient uizfZHBVLFGZPVDXFD6476-14-62J27:32:03 [facility] 2022-06-09 18:15:00 [id number] QGTlAOxyurcZV6SKBRpQltmJTXna5 CHrxTBvWIH1WqxoE9L9gPY2NKMa5070-99-42A87:15:00 [facility] ([facility])Wound Care Progress NoteREPORT#:[id number] REPORT STATUS: SignedDATE:06/09/22 TIME:1814 PATIENT: FRAN SANTAMARIA UNIT #: [id number]#: [id number] [address] AGE: 71 SEX: M ATTEND: Cheikh Gutierrez [facility] AUTHOR: Yakov Kate MD * ALL edits or amendments must be made on the electronic/computer document * SubjectiveChief complaint:Wound CareHPI:no acute eventsUnable to obtain: medical condition Objective GeneralVS:Last Documented: Result Date Time Pulse Ox 97 06/09 1558 B/P 122/67 06/09 1558 B/P Mean 85.6 06/09 1558 Temp 98.2 06/09 1558 Pulse 70 06/09 1558 Resp 18 06/09 1107 O2 Delivery Room air 06/09 0535 PATIENT WEIGHT: Weight (lb): Weight (oz): Weight (kg): 71.400 Medications:Active Meds + DC'd Last 24 HrsDivalproex Sodium (DEPAKOTE) 500 MG BID PO Lisinopril (ZESTRIL) 2.5 MG DAILY PO Metoprolol Succinate (TOPROL XL) 25 MG DAILY PO Apixaban (ELIQUIS) 5 MG Q12HR PO Atorvastatin Calcium (LIPITOR) 40 MG BEDTIME PO Aspirin (ECOTRIN) 81 MG DAILY PO Citalopram Hydrobromide (CeleXA) 10 MG DAILY PO Finasteride (PROSCAR) 5 MG DAILY PO Ketoconazole (Nizoral 2% Shampoo 120 ML) 1 APPLIC DAILY TOPICAL Oxybutynin Chloride (DITROPAN) 5 MG BID PO Tamsulosin HCl (FLOMAX) 0.8 MG DAILY PO Insulin Human Lispro (HUMALOG) S/SCALE LOW AC HS SUBQ Dextrose/Water (Dextrose 50% W SYRINGE) 50 ML ASDIR PRN IV (CKD) Docusate Sodium (COLACE) 100 MG Q12H PRN PRN PO Trazodone HCl (DESYREL) 150 MG BEDTIME PRN PO Dietitian Nutrition assessmentThe data set between the solid lines has been imported from the dietitian's assessment. BMI Calculated: 20.2Nutrition related diagnosis: Nutrition diagnosis details: Nutrition problem: Increased nutrient needsNutrition etiology: Wound healingNutrition signs and symptoms: Increased protein needs for, wound healingNutrition prescription: Recommend continue cardiac easy to chew diet with Glucerna supplements.Dietitian name: Andrés Street, DIETAssessment completed: 06/08/22 Physical ExamGeneral appearance: chronically ill appearingRespiratory: no distressAbdomen: non-tenderExtremities: no edema Wound AssessmentWound Assessment 1: Type/cause: pressure Wound location: heel Tissue layers: limited to skin breakdown Site condition: no drainage, no ecchymosis, no erythema Stage of pressure ulcer: stage IWound Assessment 2: Type/cause: chronic Wound location: foot Site condition: no drainage, no ecchymosis, no erythemaWound Assessment 3: Type/cause: pressure Wound location: buttock Site condition: no drainage, no ecchymosis, no erythema Stage of pressure ulcer: stage II Diagnosis, Assessment PlanProblem List/A P: 1. Decubitus ulcer of buttock, [...] air 5. Altered mental status Consultants: cardiology at 1817 RPT #: [id number] OF REPORT PNProcedure cnyu4836-40-40D76:15:00L.[id number] able for patient ynevYDMFLXFTJHQBBJ7587-21-10Q07:17:32 [facility] 2022-06-08 21:09:00 [id number] 7fEsc+8o/LAvhnW46OkW23GwZf3sw 3Bq3FCI6fvKs/EVu9/3vopPWy8U4529-64-68V05:09:[address] [facility] [facility] [place], [place]Wound Care Progress NoteREPORT#:[id number] REPORT STATUS: SignedDATE:06/08/22 TIME:2108 PATIENT: RFAN SANTAMARIA UNIT #: [id number]#: [id number] [address] AGE: 71 SEX: M ATTEND: Cheikh Gutierrez [facility] AUTHOR: Yakov Kate MD * ALL edits or amendments must be made on the electronic/computer document * SubjectiveChief complaint:Wound CareHPI:no acute eventsUnable to obtain: combative Objective GeneralVS:Last Documented: Result Date Time Pulse Ox 99 06/08 1930 B/P 107/57 06/08 1930 B/P Mean 73.9 06/08 1930 O2 Delivery Room air 06/08 1930 Temp 98.1 06/08 1930 Pulse 49 06/08 1930 Resp 14 06/08 1930 PATIENT WEIGHT: Weight (lb): Weight (oz): Weight (kg): 71.400 Medications:Active Meds + DC'd Last 24 HrsDivalproex Sodium (DEPAKOTE) 500 MG BID PO Lisinopril (ZESTRIL) 2.5 MG DAILY PO Metoprolol Succinate (TOPROL XL) 25 MG DAILY PO Apixaban (ELIQUIS) 5 MG Q12HR PO Atorvastatin Calcium (LIPITOR) 40 MG BEDTIME PO Aspirin (ECOTRIN) 81 MG DAILY PO Citalopram Hydrobromide (CeleXA) 10 MG DAILY PO Finasteride (PROSCAR) 5 MG DAILY PO Ketoconazole (Nizoral 2% Shampoo 120 ML) 1 APPLIC DAILY TOPICAL Oxybutynin Chloride (DITROPAN) 5 MG BID PO Tamsulosin HCl (FLOMAX) 0.8 MG DAILY PO Insulin Human Lispro (HUMALOG) S/SCALE LOW AC HS SUBQ Dextrose/Water (Dextrose 50% W SYRINGE) 50 ML ASDIR PRN IV (CKD) Docusate Sodium (COLACE) 100 MG Q12H PRN PRN PO Trazodone HCl (DESYREL) 150 MG BEDTIME PRN PO Dietitian Nutrition assessmentThe data set between the solid lines has been imported from the dietitian's assessment. BMI Calculated: 20.2Nutrition related diagnosis: Nutrition diagnosis details: Nutrition problem: Increased nutrient needsNutrition etiology: Wound healingNutrition signs and symptoms: Increased protein needs for, wound healingNutrition prescription: Recommend continue cardiac easy to chew diet with Glucerna supplements.Dietitian name: Andrés Street DIETAssessment completed: 06/08/22 Physical ExamGeneral appearance: agitatedRespiratory: no distressAbdomen: non-tenderExtremities: no edema Wound AssessmentWound Assessment 1: Type/cause: pressure Wound location: heel Tissue layers: limited to skin breakdown Site condition: no drainage, no ecchymosis, no erythema Stage of pressure ulcer: stage IWound Assessment 2: Type/cause: chronic Wound location: foot Site condition: no drainage, no ecchymosis, no erythemaWound Assessment 3: Type/cause: pressure Wound location: buttock Site condition: no drainage, no ecchymosis, no erythema Stage of pressure ulcer: stage II Diagnosis, Assessment PlanProblem List/A P: 1. Decubitus ulcer of buttock, [...] air 5. Altered mental status Consultants: cardiology at 2110 RPT #: [id number] OF REPORT PNProcedure otlz7931-68-76R05:09:00L.[id number] able for patient twqlWWCRJIILOXXHFA8868-19-95L97:10:55 [facility] 2022-06-08 11:04:00 [id number] sjfO3uuc0KdKFiQ9XVKEISP27xhaA IX1IAchgnoxYGH+/kEcMNDSstqK8072-63-38J61:04:00 [facility])Hospitalist Progress NoteREPORT#:[id number] REPORT STATUS: SignedDATE:06/08/22 TIME:1104 PATIENT: FRAN SANTAMARIA UNIT #: [id number]#: [id number] [address] AGE: 71 SEX: M ATTEND: Cheikh Gutierrez [facility] AUTHOR: Anneliese Eden MD * ALL edits or amendments must be made on the electronic/computer document * SubjectiveChief complaint:No acute eventsHPI:71-year-old male with PMHx of massive CVA x5 (per patient), hypertension, atrialfibrillation, diabetes mellitus, coronary artery disease, status post stent placement presented to the ED for altered mental status. Of note, it was unclear when the patient was last seen at his normal baseline mental status. The staff at his nursing facility noticed that he had repetitive speech today. In the ED, his NIH score was reported as 0. Head CT and CTA no acute findings or significant stenosis. He was not a candidate for tPA or endovascular therapydue to the time of onset of his symptoms and because the patient is on Eliquis. EKG showed A-fib with HR 77. UA negative for UTI. Found elevated troponin. Vitals stable. Upon my evaluation patient is alert, orientated x4, appearing hismentation back to at his baseline. He is a good historian. Denies dizziness, chest pain, shortness of breath, abdominal pain, or nausea vomiting. Patient isincontinence. Patient just wants to be changed. Noted involuntary jerking movement of the left upper extremity. Patient states he usually has low BP. BP nl during ED stay. He is admitted for further evaluation and management. Objective Physical ExamGeneral appearance: sleeping comfortablyHead/Eyes: atraumatic, normal conjunctiva/sclera, normal eyelids/periorb., normocephalic, PERRLENT: moist mucosal membranesNeck: full range of motion, normal thyroid, supple/no meningismus, no JVD, no masses or swellingCardiovascular: normal capillary refill, normal heart sounds, regular rate rhythmRespiratory: aerating well, clear to auscultation, symmetric expansion, no distressAbdomen: non-tender, normal bowel sounds, soft, no distentionGenitourinary: urine, no flank painExtremities: normal capillary refill, no cyanosis, no edemaMusculoskeletal: normal inspectionNeuro/OPAL MINER: right hemiparesis, alert, oriented X 3, normal speech, no sensory deficitsSkin: normal color, normal temperatureLymphatics: no lymphadenopathyPsychiatry: anxious Diagnosis, Assessment PlanConsultants: cardiology Free Text DxA P NotesFree text DxA P notes:71 yo male with PMHX of multiple CVAx5, CAD, HTN, DM2 admitted for 1. Acute metabolic encephalopathy-Baseline dementia-resolved and back to baseline, MRI brain shows no acute process - Left frontoparietal convexity meningioma again noted-Concern is that of seizure with postictal confusion. Neurology added depakote appearing back to his baseline no obvious convincing metabolic or neurologic etiology head CT/CTA no significant acute abnormality 2. Elevated troponin-type II TN trended troponin x3 Monitor on the telemetry pt is on Eliquis for A-fib 3. Hyponatremia - resolved unknown etiology Resolved with IVF, BS control, repeat bmp home med HCTZ 5. Atrial fibrillation - rate controlled continue Eliquis not on BB HR controlled 6. DM2 ACHS SSI VTE ppx: on EliquisFull code Work-up negative, symptoms resolved, back to baseline Discussed with Daughter and [facility] - Consulted CMAwaiting placementPossible DC once placement is arranged Patient is medically stableTried contacting sister regarding dispositionWill DC home with home health Family appealed discharge -we will discussed with case management at 1106 RPT #: [id number] OF REPORT PRProgress wfrp2918-52-77N50:04:00L.[id number] able for patient ayjjOAAYAWMLUHMUFT0568-11-57Z76:07:09 [facility] 2022-06-08 09:12:00 [id number] WVnM5QUYKvmXCvYhQZVEOM/XQa0A4 rcFKmL+qFOmDClv/hNYqp+BjdPm1123-90-37M16:12:00 [facility])Cardiology Progress NoteREPORT#:[id number] REPORT STATUS: SignedDATE:06/08/22 TIME:911 PATIENT: FRAN SANTAMARIA UNIT #: [id number]#: [id number] [address] AGE: 71 SEX: M ATTEND: Cheikh Gutierrez AUTHOR: Sammie Johnson APRN * ALL edits or amendments must be made on the electronic/computer document * Subjective Free Text Subj NotesFree Text Subj Notes:Cardiology progress note Date of service: 2Chief complaint/reason for consult: Elevated troponinPatient seen and examined, chart reviewed, questions/concerns addressed with RN.Current medication and vitals reviewed and listed above HPI and interval Hx: NAD. No acute events reported overnight. Remains in rate controlled A. fib. BP stable Admission HPI: 1 YO male chronically ill-looking male, appear confused, hx provided by [facility]. The patient has PMH of CVA, AFib on Eliquis, CAD with prior PCI who presented to ED with abnormal speech. Initial Head imaging negative for acute IC finding. Troponin came back elevated and cardiology consultation is requested. Troponin: 160.5->223.5. EKG showed atrial fibrillation with controlled rate, no acute ST/T wave changes. The patient denies chest pain or SOB. CHARLIEA/sister Ayla Ace phone [phone]. Subjective: Denies any chest pain or shortness of breath Objective:Vital Signs: Date Time Temp Pulse Resp B/P B/P Pulse O2 O2 Flow FiO2 Mean Ox Delivery Rate 06/08 747 97.3 73 14 145/72 96.4 94 Room air 06/08 0325 98.1 63 17 152/75 100.7 95 06/07 2218 97.9 69 15 121/66 84.4 100 Current Medications Sig/Manuel Start time Last Medication Dose Route Stop Time Status Admin Divalproex Sodium 500 MG BID 06/01 2100 AC 06/08 PO 07/01 Lisinopril 2.5 MG DAILY 06/01 900 AC 06/08 PO 07/01 0759 0827 Metoprolol Succinate 25 MG DAILY 06/01 900 AC 06/08 PO 07/01 0759 0828 Apixaban 5 MG Q12HR 05/31 2100 AC 06/08 PO 06/14 2059 08 Atorvastatin Calcium 40 MG BEDTIME 05/30 2100 AC 06/07 PO 06/29 Aspirin 81 MG DAILY 05/30 1133 AC 06/08 PO 06/29 1132 0827 Citalopram 10 MG DAILY 05/30 900 AC 06/08 Hydrobromide PO 06/29 859 0828 Finasteride 5 MG DAILY 05/30 900 AC 06/08 PO 06/29 459 0827 Ketoconazole 1 APPLIC DAILY 05/30 900 AC 06/08 TOPICAL 06/13 0859 0828 Oxybutynin Chloride 5 MG BID 05/30 900 AC 06/08 PO 06/29 0859 0828 Tamsulosin HCl 0.8 MG DAILY 05/30 900 AC 06/08 PO 06/29 0859 0828 Insulin Human Lispro See Dose AC HS 05/30 0730 AC 06/07 Insts (1) SUBQ 06/29 0729 1728 Dextrose/Water 50 ML ASDIR PRN 05/30 0515 CKD IV 06/29 0514 Docusate Sodium 100 MG Q12H PRN PRN 05/30 0500 AC PO 06/29 0459 Trazodone HCl 150 MG BEDTIME PRN 05/30 0500 AC 06/08 PO 06/299 0116 Dose Instructions:(1)Insulin Human Lispro: S/SCALE LOW Vital signs as abovePhysical examination:GEN: chronically ill appearing, frail, alert, awake, no acute distress, pleasantHEENT: NC/AT, EOMICARD: iRRR, normal S1/S2,+ murmurLUNGS: CTA w/o added sounds, GBAE.ABD: Soft, nondistended, nontender. Intact BSEXT: No obvious deformities. No edema. Peripheral pulses intactNEURO: AOx2-3, decreased ROMSKIN: Warm and dry, no rashes/lesions.PSYCH: Appropriate mood and affect Laboratory Tests: 06/0844 2051 1636 1221 Chemistry POC Glucose (70 - 110 mg/dL) 86 105 164 H 142 H Echocardiogram Result:Conclusions Summary: 1. Left ventricle: The cavity size is dilated. Wall thickness is normal. Systolic function is mildly reduced. The estimated ejection fraction is 45-49%.2. Right ventricle: The RV pressure during systole by Doppler is 34 mm Hg. Prepared and electronically signed by Sarah Chavez MD05/30/2022 17:35 PATIENT NAME: FRAN SANTAMARIA >>>>>>>>>>>>>>>>>>>>>>>>>>>>>>>> END OF PAGE <<<<<<<<<<<<<<<<<<<<<<<<<<<<<<<< Assessment, Impression and medical decision making. Plan/recommendation:EKG Interpretation: atrial fibrillation Diagnosis, Assessment Plan Free Text DxA P NotesFree Text DxA P Notes:71 YO male chronically ill-looking male, appear confused, [facility] The patient has PMH of CVA, AFib on Eliquis, CAD with prior PCI who presented to ED with abnormal speech. Initial Head imaging negative for acute IC finding. Troponin came back elevated and cardiology consultation is requested. Troponin: 160.5->223.5. EKG showed atrial fibrillation with controlled rate, no acute ST/T wave changes. The patient denies chest pain or SOB. 1. Chronc atrial fibrillation - rate controlcontinue metoprololDC heparin gtt, resume Eliquis 5 mg BIDechocardiogram LVEF 45-49%, no signficant valvular disease 2. Positive troponin - likely Type II MIKnown CAD with prior stentleaning toward Type II TN in the setting of possible TIA or ?UTI Troponin: 160.5->223.5->100.1->61.6DC heparin gtt, continue ASA 81 mg daily, atorvastatin 40 mg daily, metoprolol 25 mg BIDechocardiogram LVEF 45-49%telemetryoutpatient stresst test 3. Speech disturbance ? TIA, ?encephalopathy, ? Dementianeurology consulted 4. UA positive for bacteriuriamanage per primary team 5. Hx of CVA 6. Hypertensioncontinue low dose ACEI and BB 7. LV Systolic dysfunctionLVEF 45-49%continue BB change to metoprolol succinate 25 mg daily, add lisinopril 2.5 mg daily Stop amlodipine CHARLIEA/sister Ayla Ace phone [phone]. No further cardiac workup. Outpatient follow-up with Dr. Chavez in 2 weeks. at 1232 06/08/2022 NAD. No acute events reported overnight. Remains in rate controlled A. fib. BP stable. -Continue metoprolol for rate control, lisinopril for additional BP control-Continue Eliquis/apixaban for embolic event prevention-Continue with above recommendations: Cardiology clinic follow-up for outpatientstress test-Awaiting placement Thank you for your consultation and allowing us to take the care of your patientplease do not hesitate to contact us with any questions or concerns. Sammie Johnson, [facility] CHILD SUPPORT SPECIALIST Dr. Sarah Chavez MD-Attending CardiologistSWestern State Hospital Cardiology at 1055 at 0614 RPT #: [id number] OF REPORT PRProgress iapw1590-54-19M02:12:00L.[id number] able for patient jvkwJVASYXHSMNDVAT1528-41-06S53:01:49 [facility] 2022-06-07 22:04:00 [id number] w3oaZ0fD7GPKqPfaiAk8a4Y93Gx1M F95jzMXaUg+vf8FXWmuoTRNretx9560-27-54N57:04:00 [facility] ([facility])Wound Care Progress NoteREPORT#:[id number] REPORT STATUS: SignedDATE:06/07/22 TIME:2203 PATIENT: FRAN SANTAMARIA UNIT #: [id number]#: [id number] [address] AGE: 71 SEX: M ATTEND: Cheikh Gutierrez [facility] AUTHOR: Yakov Kate MD * ALL edits or amendments must be made on the electronic/computer document * SubjectiveChief complaint:Wound CareHPI:no acute events Objective GeneralVS:Last Documented: Result Date Time Pulse Ox 97 06/07 1910 B/P 121/49 06/07 1910 B/P Mean 73.0 06/07 1910 Temp 98.1 06/07 1910 Pulse 71 06/07 1910 Resp 16 06/07 1910 O2 Delivery Room air 06/07 1639 PATIENT WEIGHT: Weight (lb): Weight (oz): Weight (kg): 71.400 Medications:Active Meds + DC'd Last 24 HrsDivalproex Sodium (DEPAKOTE) 500 MG BID PO Lisinopril (ZESTRIL) 2.5 MG DAILY PO Metoprolol Succinate (TOPROL XL) 25 MG DAILY PO Apixaban (ELIQUIS) 5 MG Q12HR PO Atorvastatin Calcium (LIPITOR) 40 MG BEDTIME PO Aspirin (ECOTRIN) 81 MG DAILY PO Citalopram Hydrobromide (CeleXA) 10 MG DAILY PO Finasteride (PROSCAR) 5 MG DAILY PO Ketoconazole (Nizoral 2% Shampoo 120 ML) 1 APPLIC DAILY TOPICAL Oxybutynin Chloride (DITROPAN) 5 MG BID PO Tamsulosin HCl (FLOMAX) 0.8 MG DAILY PO Insulin Human Lispro (HUMALOG) S/SCALE LOW AC HS SUBQ Dextrose/Water (Dextrose 50% W SYRINGE) 50 ML ASDIR PRN IV (CKD) Docusate Sodium (COLACE) 100 MG Q12H PRN PRN PO Trazodone HCl (DESYREL) 150 MG BEDTIME PRN PO Dietitian Nutrition assessmentThe data set between the solid lines has been imported from the dietitian's assessment. BMI Calculated: 20.2Nutrition related diagnosis: Nutrition diagnosis details: Nutrition problem: Increased nutrient needsNutrition etiology: Wound healingNutrition signs and symptoms: Increased protein needs for, wound healingNutrition prescription: Recommend continue current diet. Recommend adding Glucerna supplements to meal plan 1x/day. Encourage continued good intake as tolerated.Dietitian name: Neetu Cast, DIETAssessment completed: 05/31/22 Physical ExamGeneral appearance: chronically ill appearingRespiratory: no distressAbdomen: non-tenderExtremities: no edema Wound AssessmentWound Assessment 1: Type/cause: pressure Wound location: heel Tissue layers: limited to skin breakdown Site condition: no drainage, no ecchymosis, no erythema Stage of pressure ulcer: stage IWound Assessment 2: Type/cause: chronic Wound location: foot Site condition: no drainage, no ecchymosis, no erythemaWound Assessment 3: Type/cause: pressure Wound location: buttock Site condition: no drainage, no ecchymosis, no erythema Stage of pressure ulcer: stage II Diagnosis, Assessment PlanProblem List/A P: 1. Decubitus ulcer of buttock, [...] air 5. Altered mental status Consultants: cardiology at 2205 RPT #: [id number] OF REPORT PNProcedure oddu2823-49-01P27:04:00L.[id number] able for patient aadgQTQAEKSRVMJDWS2425-67-31A10:06:13 [facility] 2022-06-07 16:35:00 [id number]/[id number] 8LiDmUK56MlQvI9n0Rgvpfz4lpeuB YU2a/mIc3wtBTlMJ+dI5BAyQOzc2261-88-84H47:35:00 [facility] ([facility])Neurology Progress NoteREPORT#:[id number] REPORT STATUS: SignedDATE:06/07/22 TIME:1635 PATIENT: FRAN SANTAMARIA UNIT #: [id number]#: [id number] ROOM/BED: [id number]: 50 AGE: 71 SEX: M ATTEND: Cheikh Gutierrez [facility] AUTHOR: Ramsey Marrero MD * ALL edits or amendments must be made on the electronic/computer document * Objective GeneralVS:Last Documented: Result Date Time Pulse Ox 99 06/07 1228 B/P 100/57 06/07 1228 B/P Mean 0.0 06/07 122 O2 Delivery Room air 06/07 1228 Temp 36.4 06/07 1228 Pulse 77 06/07 122 Resp 14 06/07 1228 PATIENT WEIGHT: Weight (lb): Weight (oz): Weight (kg): 71.400 MedicationsCurrent Home MedicationsCITALOPRAM (CeleXA) 10 MG PO DAILY HYDROCHLOROTHIAZIDE (HCTZ) [...] BID KETOCONAZOLE (NIZORAL 2%) 1 APPLIC TOPICAL MOWEFR KETOCONAZOLE (NIZORAL 2%) 1 APPLIC TOPICAL DAILY traZODone (DESYREL) 150 MG PO BEDTIME PRN INSOMNIA OMEGA-3 FATTY ACIDS (FISH OIL) 1,000 MG PO DAILY DOCUSATE SODIUM (COLACE) 100 MG PO Q12H PRN PRN CONSTIPATION FLUTICASONE PROPIONATE (FLONASE 50 MCG/ACT NASAL) 1 SPRAY NASAL BID FAMOTIDINE (PEPCID) 20 MG PO BID METOPROLOL SUCC XL (TOPROL XL) 25 MG PO DAILY Active Meds + DC'd Last 24 HrsDivalproex Sodium (DEPAKOTE) 500 MG BID PO Lisinopril (ZESTRIL) 2.5 MG DAILY PO Metoprolol Succinate (TOPROL XL) 25 MG DAILY PO Apixaban (ELIQUIS) 5 MG Q12HR PO Atorvastatin Calcium (LIPITOR) 40 MG BEDTIME PO Aspirin (ECOTRIN) 81 MG DAILY PO Citalopram Hydrobromide (CeleXA) 10 MG DAILY PO Finasteride (PROSCAR) 5 MG DAILY PO Ketoconazole (Nizoral 2% Shampoo 120 ML) 1 APPLIC DAILY TOPICAL Oxybutynin Chloride (DITROPAN) 5 MG BID PO Tamsulosin HCl (FLOMAX) 0.8 MG DAILY PO Insulin Human Lispro (HUMALOG) S/SCALE LOW AC HS SUBQ Dextrose/Water (Dextrose 50% W SYRINGE) 50 ML ASDIR PRN IV (CKD) Docusate Sodium (COLACE) 100 MG Q12H PRN PRN PO Trazodone HCl (DESYREL) 150 MG BEDTIME PRN PO Mental StatusOrientation:Yes: to time, to place, to person. No: to situation. ReflexesPlantar reflexes:Up: Right. Down: Left. ResultsFindings/Data:Laboratory Tests 06/07 06/07 06/06 06/06 1221 0726 1909 1652 Chemistry POC Glucose (70 - 110 mg/dL) 142 H 131 H 147 H 181 H Results: labs reviewed, vital signs reviewed, current med profile rev'd Diagnosis, Assessment PlanFree Text A P:71 years old male who is being evaluated for altered mental status. CT of the brain - No evidence of acute pathology. Senescent changes. Left frontal encephalomalacia unchanged. CTA head and neck - Scattered atherosclerotic plaque with mild less than 50% narrowingat the left carotid bifurcation. No other area of significant stenosis. No intracranial large vessel occlusion. Hemoglobin A1c 6.0, LDL 43 Diagnoses:1. Acute encephalopathy - etiology under investigation on baseline dementia2. History of chronic infarcts3. Atrial fibrillation4. Diabetes mellitus5. Dementia6. CAD7. History of tobacco use8. Generalized rash Plan:Telemetry.Reviewed CT of the brain.Reviewed CTA head and neck.MRI of the brain - pending.Echo - pending.Continue Aspirin, statin and Eliquis.PT/OT and speech evaluation.Supportive care.Neurology to follow. Thanks for the consult.05/31 stable; no evidence for new /2 review of MRI shows moderate to large area of encephalomalacia in Left superior fromtalarea + what appears to be a meningioma just posterior to this. Concern is that of seizure with postictal confusion. Will add depakote and follow as outpatient in view of difficulty of obtainingEEG on the weekend.06/07 eeg has much artifact but bifrontal slowing is noted at 1639 RPT #: [id number] OF REPORT PRProgress ukpv3464-33-35J90:35:00L.UACR07970660-6765IJAvzvb able for patient gpyzXVEGYWHETGGUKN4795-27-21P67:39:46 [facility] 2022-06-07 15:07:00 [id number]+79l WzvdsUD9Nwj0bbTxVJ6FNOavJBi1C dWIc9a2T2QsTqcwVskHRo73EmBP4764-51-78M07:07:55599 8-0003 [facility] [id number] [place] [id number] PATIENT NAME: FRAN SANTAMARIA ADMIT DATE: 05/30/22ACCOUNT NO: [id number] ROOM NO: S218 AGE: 71 REPORT TYPE: ELECTROENCEPHALOGRAM SEX: M ADMITTING PHYSICIAN: Cheikh Gutierrez MD ATTENDING PHYSICIAN: Cheikh Gutierrez MD STUDY DATE: 06/05/2022 FINDINGS: The record shows:1. No definite discernible posterior basic rhythm.2. There are fair amounts of diffuse medium voltage 4-7 cycles per second activity and a good amount of medium to high voltage 1-3 cycles per second activity seen over the bifrontal areas.3. Fair amounts of diffuse low voltage 14-22 cycles per second activity. A fair amount of electrical artifact is present looking for minor sharp waves verydifficult. IMPRESSION: Abnormal EEG with absent posterior basic rhythm as well as excessive diffuse slowing and bifrontal slowing. There are no definite seizure discharges. COMMENT: This record suggest moderate diffuse cerebral dysfunction. The bifrontal slowing may be related to bifrontal lesions, hydrocephalus or a deep lesion and lower structures. Dictated By: Ramsey Marrero MD Date Dictated: 06/07/2022 15:07:30Date Transcribed: 06/07/2022 21:39:34/Edenilson #: [id number] ID: [id number] by Ramsey Marrero MD On 07/25/2022 09:19:45 AM at 0919 PATIENT NAME: FRAN SANTAMARIA rnzkxer1042-99-75W41:39:00L.[id number] vailable for patient raxbAJWINQPDHHZJLZ6971-08-81T70:20:20 [facility] 2022-06-07 11:22:00 [id number] MLil5B2tdq79pO4GS9h4aBluj13Vp iweb7OZsRHzRmpHy4K9hObBKH3I5215-25-23V00:22:00 [facility] ([facility])Hospitalist Progress NoteREPORT#:[id number] REPORT STATUS: SignedDATE:06/07/22 TIME:1121 PATIENT: FRAN SANTAMARIA UNIT #: [id number]#: [id number] ROOM/BED: M930-8GJH: 50 AGE: 71 SEX: M ATTEND: Cheikh Gutierrez [facility] AUTHOR: Anneliese Eden MD * ALL edits or amendments must be made on the electronic/computer document * SubjectiveChief complaint:No acute eventsHPI:71-year-old male with PMHx of massive CVA x5 (per patient), hypertension, atrialfibrillation, diabetes mellitus, coronary artery disease, status post stent placement presented to the ED for altered mental status. Of note, it was unclear when the patient was last seen at his normal baseline mental status. The staff at his nursing facility noticed that he had repetitive speech today. In the ED, his NIH score was reported as 0. Head CT and CTA no acute findings or significant stenosis. He was not a candidate for tPA or endovascular therapydue to the time of onset of his symptoms and because the patient is on Eliquis. EKG showed A-fib with HR 77. UA negative for UTI. Found elevated troponin. Vitals stable. Upon my evaluation patient is alert, orientated x4, appearing hismentation back to at his baseline. He is a good historian. Denies dizziness, chest pain, shortness of breath, abdominal pain, or nausea vomiting. Patient isincontinence. Patient just wants to be changed. Noted involuntary jerking movement of the left upper extremity. Patient states he usually has low BP. BP nl during ED stay. He is admitted for further evaluation and management. Objective Physical ExamGeneral appearance: awakeHead/Eyes: atraumatic, normal conjunctiva/sclera, normal eyelids/periorb., normocephalic, PERRLENT: moist mucosal membranesNeck: full range of motion, normal thyroid, supple/no meningismus, no JVD, no masses or swellingCardiovascular: normal capillary refill, normal heart sounds, regular rate rhythmRespiratory: aerating well, clear to auscultation, symmetric expansion, no distressAbdomen: non-tender, normal bowel sounds, soft, no distentionGenitourinary: urine, no flank painExtremities: normal capillary refill, no cyanosis, no edemaMusculoskeletal: normal inspectionNeuro/OPAL MINER: right hemiparesis, alert, oriented X 3, normal speech, no sensory deficitsSkin: normal color, normal temperatureLymphatics: no lymphadenopathyPsychiatry: anxious Diagnosis, Assessment PlanConsultants: cardiology Free Text DxA P NotesFree text DxA P notes:71 yo male with PMHX of multiple CVAx5, CAD, HTN, DM2 admitted for 1. Acute metabolic encephalopathy-Baseline dementia-resolved and back to baseline, MRI brain shows no acute process - Left frontoparietal convexity meningioma again noted-Concern is that of seizure with postictal confusion. Neurology added depakote appearing back to his baseline no obvious convincing metabolic or neurologic etiology head CT/CTA no significant acute abnormality 2. Elevated troponin-type II TN trended troponin x3 Monitor on the telemetry pt is on Eliquis for A-fib 3. Hyponatremia - resolved unknown etiology Resolved with IVF, BS control, repeat bmp home med HCTZ 5. Atrial fibrillation - rate controlled continue Eliquis not on BB HR controlled 6. DM2 ACHS SSI VTE ppx: on EliquisFull code Work-up negative, symptoms resolved, back to baseline Discussed with Daughter and she[facility] - Consulted CMAwaiting placementPossible DC once placement is arranged Patient is medically stableTried contacting sister regarding dispositionWill DC home with home health Family appealed discharge -we will discussed with case management at 1124 RPT #: [id number] OF REPORT PRProgress urfs2851-39-03X49:22:00L.ZXJW73903128-4349AQJfaat able for patient ggccABIDCCZPCLMKBJ2456-51-15Q42:24:49 [facility] 2022-06-07 09:30:00 [id number] Q+8zvweOPdyI+J92KzCqc/GpSRugF YjOKnWAVr+RJsca0+zeWqla7Tir5038-23-65P34:30:00 [facility] ([facility])Infectious Dis. Progress NoteREPORT#:[id number] REPORT STATUS: SignedDATE:06/07/22 TIME:929 PATIENT: FRAN SANTAMARIA UNIT #: [id number]#: [id number] ROOM/BED: Q275-3RAK: 50 AGE: 71 SEX: M ATTEND: Cheikh Gutierrez [facility] AUTHOR: Evelyn Jiménez MD * ALL edits or amendments must be made on the electronic/computer document * SubjectiveChief complaint:R/o scabiesHPI:71-year-old male with h/o massive CVA x5 (per patient), hypertension, atrial fibrillation, diabetes mellitus, coronary artery disease, who presented to the ED for worsening confusion associated with repetitive speech. Of note, it was unclear when the patient was last seen at his normal baseline mental status. In the ED, Head CT and CTA showed no acute findings. ID consulted to r/o scabies. no new changes Review of SystemsConstitutional:Denies: fever. Objective GeneralVS/I O:Vital Signs Date Temp Pulse Resp B/P B/P [...] O2 Flow FiO2 Mean Ox Delivery Rate 06/07 727 [...] (lb): Weight (oz): Weight (kg): 71.400 Physical ExamGeneral appearance: awakeHead/Eyes: atraumatic, normocephalicENT: moist mucosal membranesNeck: no masses or swellingCardiovascular: regular rate rhythmRespiratory: no distressAbdomen: soft, no distentionGenitourinary: no flank painExtremities: no clubbing, no cyanosisMusculoskeletal: no joint swellingNeuro/OPAL MINER: altered mental statusSkin: Multiple signs of excoriations on the legs and armsPsychiatry: abnl judgment/insight Diagnosis, Assessment PlanFree Text A P:Laboratory Tests 06/03/22 0450:[Embedded Image Not Available] Imaging:MRI brain reviewed 05/30CXR reviewed 05/29 Assessment:1. Rash. UE/LE2. Encephalopathy.3. a fib4. htn5. h/o cva6. no uti Plan:1. the clinical findings are less likely to be c/w scabies, possibly from bed bugs.2. Recommend infection control evaluation.3. Monitor CBC and temperature.4. wound care5. pt is off ABConsultants: cardiology at 1317 RPT #: [id number] OF REPORT PRProgress ohtu6417-64-58R28:30:00L.ZFZK41750817-1928YDMqpag able for patient ausgUZGBWTTURMCMPT5424-15-37Q42:17:26 [facility] 2022-06-06 22:46:00 [id number]+oADrtD aXZNUYIvBGQmK7HVqLzRLZSeUGQq0 BN2dAmpKFPFiM5z8vDBg17S6fiz8295-94-64S37:46:00 [facility] ([facility])Wound Care Progress NoteREPORT#:[id number] REPORT STATUS: SignedDATE:06/06/22 TIME:2245 PATIENT: FRAN SANTAMARIA UNIT #: [id number]#: [id number] [address] AGE: 71 SEX: M ATTEND: Cheikh Gutierrez [facility] AUTHOR: Yakov Kate MD * ALL edits or amendments must be made on the electronic/computer document * SubjectiveChief complaint:Wound CareHPI:no acute eventsUnable to obtain: medical condition Objective GeneralVS:Last Documented: Result Date Time Pulse Ox 98 06/06 1911 B/P 133/52 06/06 1911 B/P Mean 78.6 06/06 1911 O2 Delivery Room air 06/06 1911 Temp 97.9 06/06 1911 Pulse 68 06/06 1911 Resp 15 06/06 1911 PATIENT WEIGHT: Weight (lb): Weight (oz): Weight (kg): 71.400 Medications:Active Meds + DC'd Last 24 HrsDivalproex Sodium (DEPAKOTE) 500 MG BID PO Lisinopril (ZESTRIL) 2.5 MG DAILY PO Metoprolol Succinate (TOPROL XL) 25 MG DAILY PO Apixaban (ELIQUIS) 5 MG Q12HR PO Atorvastatin Calcium (LIPITOR) 40 MG BEDTIME PO Aspirin (ECOTRIN) 81 MG DAILY PO Citalopram Hydrobromide (CeleXA) 10 MG DAILY PO Finasteride (PROSCAR) 5 MG DAILY PO Ketoconazole (Nizoral 2% Shampoo 120 ML) 1 APPLIC DAILY TOPICAL Oxybutynin Chloride (DITROPAN) 5 MG BID PO Tamsulosin HCl (FLOMAX) 0.8 MG DAILY PO Insulin Human Lispro (HUMALOG) S/SCALE LOW AC HS SUBQ Dextrose/Water (Dextrose 50% W SYRINGE) 50 ML ASDIR PRN IV (CKD) Docusate Sodium (COLACE) 100 MG Q12H PRN PRN PO Trazodone HCl (DESYREL) 150 MG BEDTIME PRN PO Dietitian Nutrition assessmentThe data set between the solid lines has been imported from the dietitian's assessment. BMI Calculated: 20.2Nutrition related diagnosis: Nutrition diagnosis details: Nutrition problem: Increased nutrient needsNutrition etiology: Wound healingNutrition signs and symptoms: Increased protein needs for, wound healingNutrition prescription: Recommend continue current diet. Recommend adding Glucerna supplements to meal plan 1x/day. Encourage continued good intake as tolerated.Dietitian name: Neetu Cast, DIETAssessment completed: 05/31/22 Physical ExamGeneral appearance: chronically ill appearingRespiratory: no distressAbdomen: non-tenderExtremities: no edema Wound AssessmentWound Assessment 1: Type/cause: pressure Wound location: heel Tissue layers: limited to skin breakdown Site condition: no drainage, no ecchymosis, no erythema Stage of pressure ulcer: stage IWound Assessment 2: Type/cause: chronic Wound location: foot Site condition: no drainage, no ecchymosis, no erythemaWound Assessment 3: Type/cause: pressure Wound location: buttock Site condition: no drainage, no ecchymosis, no erythema Stage of pressure ulcer: stage II Diagnosis, Assessment PlanProblem List/A P: 1. Decubitus ulcer of buttock, [...] air 5. Altered mental status Consultants: cardiology at 2247 RPT #: [id number] OF REPORT PNProcedure edgp5384-75-05Z61:46:00L.[id number] able for patient flceZUDPWLHFWTMVDO0539-38-38I78:47:56 [facility] 2022-06-06 14:53:00 [id number] Nwlfi2EG6x0hzM1dGzbO6lzrJbN5R mfbOzV0T4IRg6VKTuvHmCTqT8xt8439-01-03P78:53:00 [facility] ([facility]ITALCardiology Progress NoteREPORT#:[id number] REPORT STATUS: SignedDATE:06/06/22 TIME:1453 PATIENT: FRAN SANTAMARIA UNIT #: [id number]#: [id number] [address] AGE: 71 SEX: M ATTEND: Cheikh Gutierrez [facility] AUTHOR: Sammie Johnson APRN * ALL edits or amendments must be made on the electronic/computer document * Subjective Free Text Subj NotesFree Text Subj Notes:Cardiology progress note Date of service: 06/06/2022hi complaint/reason for consult: Elevated troponinPatient seen and examined, chart reviewed, questions/concerns addressed with RN.Current medication and vitals reviewed and listed above HPI and interval Hx: NAD. No acute events reported overnight. Remains in rate controlled A. fib. BP stable Admission HPI: 1 YO male chronically ill-looking male, appear confused, [facility] The patient has PMH of CVA, AFib on Eliquis, CAD with prior PCI who presented to ED with abnormal speech. Initial Head imaging negative for acute IC finding. Troponin came back elevated and cardiology consultation is requested. Troponin: 160.5->223.5. EKG showed atrial fibrillation with controlled rate, no acute ST/T wave changes. The patient denies chest pain or SOB. CHARLIEA/sister Ayla Ace phone [phone]. Subjective: Denies any chest pain or shortness of breath Objective:Vital SignsDate Temp Pulse Resp B/P B/P Mean Pulse Ox XqJ366/06-06/06 97.5-98.2 57-72 14-16 105-162/55-86 71.8-111.4 94-99 Current Medications Sig/Manuel Start time Last Medication Dose Route Stop Time Status Admin Divalproex Sodium 500 MG BID 06/01 2100 AC 06/06 PO 07/01 2058 0848 Lisinopril 2.5 MG DAILY 06/01 900 AC 06/06 PO 07/01 0859 0849 Metoprolol Succinate 25 MG DAILY 06/01 900 AC 06/06 PO 07/01 0859 0850 Apixaban 5 MG Q12HR 05/31 2100 AC 06/06 PO 06/14 2059 0850 Atorvastatin Calcium 40 MG BEDTIME 05/30 2100 AC 06/05 PO 06/29 2059 205 Aspirin 81 MG DAILY 05/30 1133 AC 06/06 PO 06/29 1132 0850 Citalopram 10 MG DAILY 05/30 900 AC 06/06 Hydrobromide PO 06/29 0859 0849 Finasteride 5 MG DAILY 05/30 09 AC 06/06 PO 06/29 0459 0849 Ketoconazole 1 APPLIC DAILY 05/30 09 AC 06/06 TOPICAL 06/13 0859 0850 Oxybutynin Chloride 5 MG BID 05/30 09 AC 06/06 PO 06/29 0859 0849 Tamsulosin HCl 0.8 MG DAILY 05/30 09 AC 06/06 PO 06/29 0859 0848 Insulin Human Lispro See Dose AC HS 05/30 0730 AC 06/05 Insts (1) SUBQ 06/29 0729 1222 Dextrose/Water 50 ML ASDIR PRN 05/30 0515 CKD IV 06/29 0514 Docusate Sodium 100 MG Q12H PRN PRN 05/30 0500 AC PO 06/29 0459 Trazodone HCl 150 MG BEDTIME PRN 05/30 0500 AC 06/01 PO 06/29 0459 0157 Dose Instructions:(1)Insulin Human Lispro: S/SCALE LOW Vital signs as abovePhysical examination:GEN: chronically ill appearing, frail, alert, awake, no acute distress, pleasantHEENT: NC/AT, EOMICARD: iRRR, normal S1/S2,+ murmurLUNGS: CTA w/o added sounds, GBAE.ABD: Soft, nondistended, nontender. Intact BSEXT: No obvious deformities. No edema. Peripheral pulses intactNEURO: AOx2-3, decreased ROMSKIN: Warm and dry, no rashes/lesions.PSYCH: Appropriate mood and affectLaboratory Tests: 06/06 06/06 06/05 1054 0629 1915 Chemistry POC Glucose (70 - 110 mg/dL) 160 H 129 H 157 H Echocardiogram Result:Conclusions Summary: 1. Left ventricle: The cavity size is dilated. Wall thickness is normal. Systolic function is mildly reduced. The estimated ejection fraction is 45-49%.2. Right ventricle: The RV pressure during systole by Doppler is 34 mm Hg. Prepared and electronically signed by Sarah Chavez MD05/30/2022 17:35 PATIENT NAME: FRAN SANTAMARIA >>>>>>>>>>>>>>>>>>>>>>>>>>>>>>>> END OF PAGE <<<<<<<<<<<<<<<<<<<<<<<<<<<<<<<< Assessment, Impression and medical decision making. Plan/recommendation:EKG Interpretation: atrial fibrillation Diagnosis, Assessment Plan Free Text DxA P NotesFree Text DxA P Notes:71 YO male chronically ill-looking male, appear confused, hx provided by [facility]. The patient has PMH of CVA, AFib on Eliquis, CAD with prior PCI who presented to ED with abnormal speech. Initial Head imaging negative for acute IC finding. Troponin came back elevated and cardiology consultation is requested. Troponin: 160.5->223.5. EKG showed atrial fibrillation with controlled rate, no acute ST/T wave changes. The patient denies chest pain or SOB. 1. Chronc atrial fibrillation - rate controlcontinue metoprololDC heparin gtt, resume Eliquis 5 mg BIDechocardiogram LVEF 45-49%, no signficant valvular disease 2. Positive troponin - likely Type II MIKnown CAD with prior stentleaning toward Type II TN in the setting of possible TIA or ?UTI Troponin: 160.5->223.5->100.1->61.6DC heparin gtt, continue ASA 81 mg daily, atorvastatin 40 mg daily, metoprolol 25 mg BIDechocardiogram LVEF 45-49%telemetryoutpatient stresst test 3. Speech disturbance ? TIA, ?encephalopathy, ? Dementianeurology consulted 4. UA positive for bacteriuriamanage per primary team 5. Hx of CVA 6. Hypertensioncontinue low dose ACEI and BB 7. LV Systolic dysfunctionLVEF 45-49%continue BB change to metoprolol succinate 25 mg daily, add lisinopril 2.5 mg daily Stop amlodipine CHARLIEA/sister Ayla Ace phone [phone]. No further cardiac workup. Outpatient follow-up with Dr. Chavez in 2 weeks. at 1232 06/06/2022 NAD. No acute events reported overnight. Remains in rate controlled A. fib. BP stable. -Continue metoprolol for rate control, lisinopril for additional BP control-Continue Eliquis/apixaban for embolic event prevention-Continue with above recommendations: Cardiology clinic follow-up for outpatientstress test-Awaiting placement Thank you for your consultation and allowing us to take the care of your patientplease do not hesitate to contact us with any questions or concerns. Sammie Johnson [facility]LY [facility] CHILD SUPPORT SPECIALIST Dr. Sarah Chavez MD-Attending CardiologistSWestern State Hospital Cardiology at 1459 at 9198 RPT #: [id number] OF REPORT PRProgress lrps7765-73-89S63:53:00L.[id number] able for patient ktcpXGRWWJLYYISHFO2169-13-99R35:55:41 [facility] 2022-06-06 12:01:00 [id number] qaQZa4VKkt3MskbPMDrZTGZ7dvexS 8EfYN57F7P7yOCqGe8w9i2meTwu5669-40-63W19:01:00 [facility] ([facility])Hospitalist Progress NoteREPORT#:[id number] REPORT STATUS: SignedDATE:06/06/22 TIME:1201 PATIENT: FRAN SANTAMARIA UNIT #: [id number]#: [id number] [address] AGE: 71 SEX: M ATTEND: Cheikh Gutierrez [facility] AUTHOR: Cheikh Gutierrez MD * ALL edits or amendments must be made on the electronic/computer document * SubjectiveChief complaint:No acute eventsHPI:71-year-old male with PMHx of massive CVA x5 (per patient), hypertension, atrialfibrillation, diabetes mellitus, coronary artery disease, status post stent placement presented to the ED for altered mental status. Of note, it was unclear when the patient was last seen at his normal baseline mental status. The staff at his nursing facility noticed that he had repetitive speech today. In the ED, his NIH score was reported as 0. Head CT and CTA no acute findings or significant stenosis. He was not a candidate for tPA or endovascular therapydue to the time of onset of his symptoms and because the patient is on Eliquis. EKG showed A-fib with HR 77. UA negative for UTI. Found elevated troponin. Vitals stable. Upon my evaluation patient is alert, orientated x4, appearing hismentation back to at his baseline. He is a good historian. Denies dizziness, chest pain, shortness of breath, abdominal pain, or nausea vomiting. Patient isincontinence. Patient just wants to be changed. Noted involuntary jerking movement of the left upper extremity. Patient states he usually has low BP. BP nl during ED stay. He is admitted for further evaluation and management. Objective GeneralVS/I O:Vital Signs: Date Time Temp Pulse Resp B/P B/P Pulse O2 O2 Flow FiO2 Mean Ox Delivery Rate 06/06 1055 [...] Weight (lb): Weight (oz): Weight (kg): 71.400 Medications:Active Meds + DC'd Last 24 HrsDivalproex Sodium (DEPAKOTE) 500 MG BID PO Lisinopril (ZESTRIL) 2.5 MG DAILY PO Metoprolol Succinate (TOPROL XL) 25 MG DAILY PO Apixaban (ELIQUIS) 5 MG Q12HR PO Atorvastatin Calcium (LIPITOR) 40 MG BEDTIME PO Aspirin (ECOTRIN) 81 MG DAILY PO Citalopram Hydrobromide (CeleXA) 10 MG DAILY PO Finasteride (PROSCAR) 5 MG DAILY PO Ketoconazole (Nizoral 2% Shampoo 120 ML) 1 APPLIC DAILY TOPICAL Oxybutynin Chloride (DITROPAN) 5 MG BID PO Tamsulosin HCl (FLOMAX) 0.8 MG DAILY PO Insulin Human Lispro (HUMALOG) S/SCALE LOW AC HS SUBQ Dextrose/Water (Dextrose 50% W SYRINGE) 50 ML ASDIR PRN IV (CKD) Docusate Sodium (COLACE) 100 MG Q12H PRN PRN PO Trazodone HCl (DESYREL) 150 MG BEDTIME PRN PO Physical ExamGeneral appearance: confused, alertHead/Eyes: atraumatic, normal conjunctiva/sclera, normal eyelids/periorb., normocephalic, PERRLENT: moist mucosal membranesNeck: full range of motion, normal thyroid, supple/no meningismus, no JVD, no masses or swellingCardiovascular: normal capillary refill, normal heart sounds, regular rate rhythmRespiratory: aerating well, clear to auscultation, symmetric expansion, no distressAbdomen: non-tender, normal bowel sounds, soft, no distentionGenitourinary: urine, no flank painExtremities: normal capillary refill, no cyanosis, no edemaMusculoskeletal: normal inspectionNeuro/OPAL MINER: right hemiparesis, alert, oriented X 3, normal speech, no sensory deficitsSkin: normal color, normal temperatureLymphatics: no lymphadenopathyPsychiatry: anxious ResultsFindings/Data:Laboratory Tests 06/06 06/06 06/05 1054 0629 1915 Chemistry POC Glucose (70 - 110 mg/dL) 160 H 129 H 157 H Diagnosis, Assessment PlanConsultants: cardiology Free Text DxA P NotesFree text DxA P notes:71 yo male with PMHX of multiple CVAx5, CAD, HTN, DM2 admitted for 1. Acute metabolic encephalopathy-Baseline dementia-resolved and back to baseline, MRI brain shows no acute process - Left frontoparietal convexity meningioma again noted-Concern is that of seizure with postictal confusion. Neurology added depakote appearing back to his baseline no obvious convincing metabolic or neurologic etiology head CT/CTA no significant acute abnormality 2. Elevated troponin-type II TN trended troponin x3 Monitor on the telemetry pt is on Eliquis for A-fib 3. Hyponatremia - resolved unknown etiology Resolved with IVF, BS control, repeat bmp home med HCTZ 5. Atrial fibrillation - rate controlled continue Eliquis not on BB HR controlled 6. DM2 ACHS SSI VTE ppx: on EliquisFull code Work-up negative, symptoms resolved, back to baseline Discussed with Daughter and [facility] - Consulted CMAwaiting placementPossible DC once placement is arranged Patient is medically stableTried contacting sister regarding dispositionWill DC home with home health Family appealed discharge at 1208 RPT #: [id number] OF REPORT PRProgress ltcs4477-90-44A96:01:00L.[id number] able for patient lmvoFXXSNZJJSBSLZT3212-85-62D18:08:27 [facility] 2022-06-06 10:03:00 [id number] 4hlaisapXyIhxpQhFA/EikABwVB+T tzfzY8xxPoZo5bbiZq+MaJoSmoy7431-41-34W82:03:00 [facility] ([facility])Infectious Dis. Progress NoteREPORT#:[id number] REPORT STATUS: SignedDATE:06/06/22 TIME:1003 PATIENT: FRAN SANTAMARIA UNIT #: [id number]#: [id number] [address] AGE: 71 SEX: M ATTEND: Cheikh Gutierrez [facility] AUTHOR: Evelyn Jiménez MD * ALL edits or amendments must be made on the electronic/computer document * SubjectiveChief complaint:R/o scabiesHPI:71-year-old male with h/o massive CVA x5 (per patient), hypertension, atrial fibrillation, diabetes mellitus, coronary artery disease, who presented to the ED for worsening confusion associated with repetitive speech. Of note, it was unclear when the patient was last seen at his normal baseline mental status. In the ED, Head CT and CTA showed no acute findings. ID consulted to r/o scabies. no new changes Review of SystemsConstitutional:Denies: fever. Objective GeneralVS/I O:Vital SignsDate Temp Pulse Resp B/P B/P Mean Pulse Ox SqV618/-06/06 36.4-36.8 60-72 14-17 101-162/51-86 67.6-111.4 94-99 Last Documented: Result Date Time Pulse Ox 97 06/06 631 B/P 162/86 06/06 631 B/P Mean 111.4 06/06 631 O2 Delivery Room air 06/06 631 Temp 36.6 12/07 0631 Pulse 71 06/06 631 Resp 14 06/06 631 Vital Signs: Date Time Temp Pulse Resp B/P B/P Pulse O2 O2 Flow FiO2 Mean Ox Delivery Rate 06/06 631 [...] (lb): Weight (oz): Weight (kg): 71.400 Physical ExamGeneral appearance: awakeHead/Eyes: atraumatic, normocephalicENT: moist mucosal membranesNeck: no masses or swellingCardiovascular: regular rate rhythmRespiratory: symmetric expansion, no distressAbdomen: soft, no distentionGenitourinary: no flank painExtremities: no clubbing, no cyanosisMusculoskeletal: no joint swellingNeuro/OPAL MINER: altered mental statusSkin: Multiple signs of exciriations on the legs and armsPsychiatry: abnl judgment/insight Diagnosis, Assessment PlanFree Text A P:Laboratory Tests 06/03/22 0450:[Embedded Image Not Available] Imaging:MRI brain reviewed 05/30CXR reviewed 05/29 Assessment:1. Rash. UE/LE2. Encephalopathy. Plan:1. the clinical findings are less likely to be c/w scabies, possibly from bed bugs.2. Recommend infection control evaluation.3. Monitor CBC and temperature.4. wound care5. pt remains off ABConsultants: cardiology at 1326 RPT #: [id number] OF REPORT PRProgress ongb3987-07-71H02:03:00L.[id number] able for patient kkjeUTUUDJBMMNGPVK5033-55-11I59:27:09 [facility] 2022-06-05 19:39:00 [id number] XoZScmJxSSBiJ/C5+bdCu3VBelPqb vd/ZeHXOwuJI/8gex/Q1RGLbzhh9875-45-98Y96:39:00 [facility] ([facility])Wound Care Progress NoteREPORT#:[id number] REPORT STATUS: SignedDATE:06/05/22 TIME:1938 PATIENT: FRAN SANTAMARIA UNIT #: [id number]#: [id number] [address] AGE: 71 SEX: M ATTEND: Cheikh Gutierrez [facility] AUTHOR: Yakov Kate MD * ALL edits or amendments must be made on the electronic/computer document * SubjectiveChief complaint:Wound CareHPI:no acute eventsPatient reports:Yes: able to communicate, feeling better. No: drainage from wound, odor. Objective GeneralVS:Last Documented: Result Date Time Pulse Ox 99 06/05 1903 B/P 128/69 06/05 1903 B/P Mean 88.8 06/05 1903 O2 Delivery Room air 06/05 1903 Temp 98.2 06/05 1903 Pulse 72 06/05 1903 Resp 15 06/05 1903 PATIENT WEIGHT: Weight (lb): Weight (oz): Weight (kg): 71.400 Medications:Active Meds + DC'd Last 24 HrsDivalproex Sodium (DEPAKOTE) 500 MG BID PO Lisinopril (ZESTRIL) 2.5 MG DAILY PO Metoprolol Succinate (TOPROL XL) 25 MG DAILY PO Apixaban (ELIQUIS) 5 MG Q12HR PO Atorvastatin Calcium (LIPITOR) 40 MG BEDTIME PO Aspirin (ECOTRIN) 81 MG DAILY PO Citalopram Hydrobromide (CeleXA) 10 MG DAILY PO Finasteride (PROSCAR) 5 MG DAILY PO Ketoconazole (Nizoral 2% Shampoo 120 ML) 1 APPLIC DAILY TOPICAL Oxybutynin Chloride (DITROPAN) 5 MG BID PO Tamsulosin HCl (FLOMAX) 0.8 MG DAILY PO Insulin Human Lispro (HUMALOG) S/SCALE LOW AC HS SUBQ Dextrose/Water (Dextrose 50% W SYRINGE) 50 ML ASDIR PRN IV (CKD) Docusate Sodium (COLACE) 100 MG Q12H PRN PRN PO Trazodone HCl (DESYREL) 150 MG BEDTIME PRN PO Dietitian Nutrition assessmentThe data set between the solid lines has been imported from the dietitian's assessment. BMI Calculated: 20.2Nutrition related diagnosis: Nutrition diagnosis details: Nutrition problem: Increased nutrient needsNutrition etiology: Wound healingNutrition signs and symptoms: Increased protein needs for, wound healingNutrition prescription: Recommend continue current diet. Recommend adding Glucerna supplements to meal plan 1x/day. Encourage continued good intake as tolerated.Dietitian name: Neetu Cast, DIETAssessment completed: 05/31/22 Physical ExamGeneral appearance: chronically ill appearingRespiratory: no distressAbdomen: non-tenderExtremities: no edema Wound AssessmentWound Assessment 1: Type/cause: pressure Wound location: heel Tissue layers: limited to skin breakdown Site condition: no drainage, no ecchymosis, no erythema Stage of pressure ulcer: stage IWound Assessment 2: Type/cause: chronic Wound location: foot Site condition: no drainage, no ecchymosis, no erythemaWound Assessment 3: Type/cause: pressure Wound location: buttock Site condition: no drainage, no ecchymosis, no erythema Stage of pressure ulcer: stage II Diagnosis, Assessment PlanProblem List/A P: 1. Decubitus ulcer of buttock, [...] air 5. Altered mental status Consultants: cardiology at 1945 RPT #: [id number] OF REPORT PNProcedure ripq0176-25-40O27:39:00L.IRVV15012027-2375WCMpqsp able for patient kmxeEOIPZMTBCVGXBR6631-85-63E07:45:37 [facility] 2022-06-05 14:40:00 [id number] 7FmoaUGuNnqEeN1/0q3JUclY7wkbt +LsE3gjNxH6VlQ5Fz0Nn5REyo+V6705-11-89V04:40:[address] [facility] [place], TXCardiology Progress NoteREPORT#:[id number] REPORT STATUS: SignedDATE:06/05/22 TIME:1440 PATIENT: FRAN SANTAMARIA UNIT #: [id number]#: [id number] [address] AGE: 71 SEX: M ATTEND: Cheikh Gutierrez [facility] AUTHOR: Sammie Johnson APRN * ALL edits or amendments must be made on the electronic/computer document * Subjective Free Text Subj NotesFree Text Subj Notes:Cardiology progress note Date of service: 2Chief complaint/reason for consult: Elevated troponinPatient seen and examined, chart reviewed, questions/concerns addressed with RN.Current medication and vitals reviewed and listed above HPI and interval Hx: NAD. No acute events reported overnight. Remains in rate controlled A. fib. [...] consultation is requested. Troponin: 160.5->223.5. EKG showed atrial fibrillation with controlled rate, no acute ST/T wave changes. The patient denies chest pain or SOB. MPOA/sister Ayla Ace phone [phone]. Subjective: Denies any chest pain or shortness of breath Objective:Vital Signs: Date Time Temp Pulse Resp B/P B/P Pulse O2 O2 Flow FiO2 Mean Ox Delivery Rate 06/05 1541 97.9 63 16 117/60 78.9 97 06/05 1343 97.5 61 17 101/51 67.6 98 06/05 0714 98.1 66 14 117/63 81.2 98 Room air Vital signs as abovePhysical examination:GEN: chronically ill appearing, frail, alert, awake, no acute distress, pleasantHEENT: NC/AT, EOMICARD: iRRR, normal S1/S2,+ murmurLUNGS: CTA w/o added sounds, GBAE.ABD: Soft, nondistended, nontender. Intact BSEXT: No obvious deformities. No edema. Peripheral pulses intactNEURO: AOx2-3, decreased ROMSKIN: Warm and dry, no rashes/lesions.PSYCH: Appropriate mood and affectLaboratory Tests: 06/05 06/05 06/04 06/04 1202 0712 2200 2027 Chemistry POC Glucose (70 - 110 mg/dL) 178 H 122 H 154 H 146 H Echocardiogram Result:Conclusions Summary: 1. Left ventricle: The cavity size is dilated. Wall thickness is normal. Systolic function is mildly reduced. The estimated ejection fraction is 45-49%.2. Right ventricle: The RV pressure during systole by Doppler is 34 mm Hg. Prepared and electronically signed by Sarah Chavez MD05/30/2022 17:35 PATIENT NAME: FRAN SANTAMARIA >>>>>>>>>>>>>>>>>>>>>>>>>>>>>>>> END OF PAGE <<<<<<<<<<<<<<<<<<<<<<<<<<<<<<<< Assessment, Impression and medical decision making. Plan/recommendation:EKG Interpretation: atrial fibrillation Diagnosis, Assessment Plan Free Text DxA P NotesFree Text DxA P Notes:71 YO male chronically ill-looking male, appear confused, hx provided by [facility]. The patient has PMH of CVA, AFib on Eliquis, CAD with prior PCI who presented to ED with abnormal speech. Initial Head imaging negative for acute IC finding. Troponin came back elevated and cardiology consultation is requested. Troponin: 160.5->223.5. EKG showed atrial fibrillation with controlled rate, no acute ST/T wave changes. The patient denies chest pain or SOB. 1. Chronc atrial fibrillation - rate controlcontinue metoprololDC heparin gtt, resume Eliquis 5 mg BIDechocardiogram LVEF 45-49%, no signficant valvular disease 2. Positive troponin - likely Type II MIKnown CAD with prior stentleaning toward Type II TN in the setting of possible TIA or ?UTI Troponin: 160.5->223.5->100.1->61.6DC heparin gtt, continue ASA 81 mg daily, atorvastatin 40 mg daily, metoprolol 25 mg BIDechocardiogram LVEF 45-49%telemetryoutpatient stresst test 3. Speech disturbance ? TIA, ?encephalopathy, ? Dementianeurology consulted 4. UA positive for bacteriuriamanage per primary team 5. Hx of CVA 6. Hypertensioncontinue low dose ACEI and BB 7. LV Systolic dysfunctionLVEF 45-49%continue BB change to metoprolol succinate 25 mg daily, add lisinopril 2.5 mg daily Stop amlodipine BIANCA/sister Ayla Ace phone [phone]. No further cardiac workup. Outpatient follow-up with Dr. Chavez in 2 weeks. at 1232 06/05/2022 NAD. No acute events reported overnight. Remains in rate controlled A. fib. BP stable. -Continue metoprolol for rate control, lisinopril for additional BP control-Continue Eliquis/apixaban for embolic event prevention-Continue with above recommendations: Cardiology clinic follow-up for outpatientstress test-Will follow Thank you for your consultation and allowing us to take the care of your patientplease do not hesitate to contact us with any questions or concerns. Sammie Johnson [facility] CHILD SUPPORT SPECIALIST Dr. Sarah Chavez MD-Attending CardiologistSWestern State Hospital Cardiology at 1711 at 1000 RPT #: [id number] OF REPORT PRProgress vsxb6913-62-81T18:40:00L.WVPI17740415-3568ROQamax able for patient bzouEOOMXZFLVNWPOW0413-16-47B41:12:01 [facility] 2022-06-05 11:27:00 [id number] is4RWpzuffW3c6dOnJuwMABXeMBIR 290NWA5m3k7vmXMyVe30cQ1D/UB2212-92-05K20:27:00 [facility] ([facility])Infectious Dis. Progress NoteREPORT#:[id number] REPORT STATUS: SignedDATE:06/05/22 TIME:1127 PATIENT: FRAN SANTAMARIA UNIT #: [id number]#: [id number] [address]: [birth year] AGE: 71 SEX: M ATTEND: Cheikh Gutierrez [facility] AUTHOR: Evelyn Jiménez MD * ALL edits or amendments must be made on the electronic/computer document * SubjectiveChief complaint:R/o scabiesHPI:71-year-old male with h/o massive CVA x5 (per patient), hypertension, atrial fibrillation, diabetes mellitus, coronary artery disease, who presented to the ED for worsening confusion associated with repetitive speech. Of note, it was unclear when the patient was last seen at his normal baseline mental status. In the ED, Head CT and CTA showed no acute findings. ID consulted to r/o scabies. no new changes Review of SystemsConstitutional:Denies: fever. Objective GeneralVS/I O:Vital Signs Date Temp Pulse Resp B/P B/P Mean Pulse Ox FiO2 06/04-06/05 36.5-37.5 41-66 14-16 102-141/57-73 74.2-92.8 98-99 Last Documented: Result Date Time Pulse Ox 98 06/05 714 B/P 117/63 06/05 714 B/P Mean 81.2 06/05 714 O2 Delivery Room air 06/05 714 Temp 36.7 06/05 714 Pulse 66 06/05 714 Resp 14 06/05 714 Vital Signs: Date Time Temp Pulse Resp B/P B/P Pulse O2 O2 Flow FiO2 Mean Ox Delivery Rate 06/05 714 36.7 66 14 117/63 81.2 98 Room air 06/05 0454 36.5 41 16 110/57 74.3 99 06/05 0036 37.0 64 16 102/61 74.2 98 06/04 2028 37.5 63 16 133/73 92.8 98 06/04 1630 36.5 54 16 141/58 85.8 98 Room air PATIENT WEIGHT: Weight (lb): Weight (oz): Weight (kg): 71.400 Physical ExamGeneral appearance: awakeHead/Eyes: atraumatic, normocephalicENT: moist mucosal membranesNeck: no masses or swellingCardiovascular: regular rate rhythmRespiratory: symmetric expansion, no distressAbdomen: soft, no distentionGenitourinary: no flank painExtremities: no clubbing, no cyanosisMusculoskeletal: no joint swellingNeuro/OPAL MINER: altered mental statusSkin: Multiple signs of scratching in the legs and armsPsychiatry: abnl judgment/insight Diagnosis, Assessment PlanFree Text A P:Laboratory Tests 06/03/22 0450:[Embedded Image Not Available] Imaging:MRI brain reviewed 05/30CXR reviewed 05/29 Assessment:1. Rash. UE/LE2. Encephalopathy. Plan:1. the clinical findings are less likely to be c/w scabies, possible bedbugs.2. Recommend infection control evaluation.3. Monitor CBC and temperature.4. wound careConsultants: cardiology at [address] [facility] #: [id number] OF REPORT PRProgress [id number]:27:00L.[id number] able for patient virmIRKZJFJNJJWMSH1971-59-82Y07:50:20 [facility] 2022-06-05 10:27:00 [id number] dX23RYcRu4OjOcop6EptCdlG5TJvj +RDVKYcySvdo5tjxhjcG5FC+huB0863-37-96W77:27:[address] [facility] [place], [place]Hospitalist Progress NoteREPORT#:[id number] REPORT STATUS: SignedDATE:06/05/22 TIME:1027 PATIENT: FRAN SANTAMARIA UNIT #: [id number]#: [id number] [address] AGE: 71 SEX: M ATTEND: Cheikh Gutierrez [facility] AUTHOR: Cheikh Gutierrez MD * ALL edits or amendments must be made on the electronic/computer document * SubjectiveChief complaint:No acute eventsHPI:71-year-old male with PMHx of massive CVA x5 (per patient), hypertension, atrialfibrillation, diabetes mellitus, coronary artery disease, status post stent placement presented to the ED for altered mental status. Of note, it was unclear when the patient was last seen at his normal baseline mental status. The staff at his nursing facility noticed that he had repetitive speech today. In the ED, his NIH score was reported as 0. Head CT and CTA no acute findings or significant stenosis. He was not a candidate for tPA or endovascular therapydue to the time of onset of his symptoms and because the patient is on Eliquis. EKG showed A-fib with HR 77. UA negative for UTI. Found elevated troponin. Vitals stable. Upon my evaluation patient is alert, orientated x4, appearing hismentation back to at his baseline. He is a good historian. Denies dizziness, chest pain, shortness of breath, abdominal pain, or nausea vomiting. Patient isincontinence. Patient just wants to be changed. Noted involuntary jerking movement of the left upper extremity. Patient states he usually has low BP. BP nl during ED stay. He is admitted for further evaluation and management. Objective GeneralVS/I O:Vital Signs: Date Time Temp Pulse Resp B/P B/P Pulse O2 O2 Flow FiO2 Mean Ox Delivery Rate 06/05 0714 98.1 66 14 117/63 81.2 98 Room air 06/05 0454 97.7 41 16 110/57 74.3 99 06/05 0036 98.6 64 16 102/61 74.2 98 06/04 2028 99.5 63 16 133/73 92.8 98 06/04 1630 97.7 54 16 141/58 85.8 98 Room air 06/04 1057 97.5 52 16 116/64 81.3 99 Room air PATIENT WEIGHT: Weight (lb): Weight (oz): Weight (kg): 71.400 Medications:Active Meds + DC'd Last 24 HrsDivalproex Sodium (DEPAKOTE) 500 MG BID PO Lisinopril (ZESTRIL) 2.5 MG DAILY PO Metoprolol Succinate (TOPROL XL) 25 MG DAILY PO Apixaban (ELIQUIS) 5 MG Q12HR PO Atorvastatin Calcium (LIPITOR) 40 MG BEDTIME PO Aspirin (ECOTRIN) 81 MG DAILY PO Citalopram Hydrobromide (CeleXA) 10 MG DAILY PO Finasteride (PROSCAR) 5 MG DAILY PO Ketoconazole (Nizoral 2% Shampoo 120 ML) 1 APPLIC DAILY TOPICAL Oxybutynin Chloride (DITROPAN) 5 MG BID PO Tamsulosin HCl (FLOMAX) 0.8 MG DAILY PO Insulin Human Lispro (HUMALOG) S/SCALE LOW AC HS SUBQ Dextrose/Water (Dextrose 50% W SYRINGE) 50 ML ASDIR PRN IV (CKD) Docusate Sodium (COLACE) 100 MG Q12H PRN PRN PO Trazodone HCl (DESYREL) 150 MG BEDTIME PRN PO Physical ExamGeneral appearance: confused, alert, awakeHead/Eyes: atraumatic, normal conjunctiva/sclera, normal eyelids/periorb., normocephalic, PERRLENT: moist mucosal membranesNeck: full range of motion, normal thyroid, supple/no meningismus, no JVD, no masses or swellingCardiovascular: normal capillary refill, normal heart sounds, regular rate rhythmRespiratory: aerating well, clear to auscultation, symmetric expansion, no distressAbdomen: non-tender, normal bowel sounds, soft, no distentionGenitourinary: urine, no flank painExtremities: normal capillary refill, no cyanosis, no edemaMusculoskeletal: normal inspectionNeuro/OPAL MINER: right hemiparesis, alert, oriented X 3, normal speech, no sensory deficitsSkin: normal color, normal temperatureLymphatics: no lymphadenopathyPsychiatry: anxious ResultsFindings/Data:Laboratory Tests 06/05 06/04 06/04 06/04 06/04 0712 2200 2028 1629 1053 Chemistry POC Glucose (70 - 110 mg/dL) 122 H 154 H 146 H 170 H 139 H Diagnosis, Assessment PlanConsultants: cardiology Free Text DxA P NotesFree text DxA P notes:71 yo male with PMHX of multiple CVAx5, CAD, HTN, DM2 admitted for 1. Acute metabolic encephalopathy-Baseline dementia-resolved and back to baseline, MRI brain shows no acute process - Left frontoparietal convexity meningioma again noted-Concern is that of seizure with postictal confusion. Neurology added depakote appearing back to his baseline no obvious convincing metabolic or neurologic etiology head CT/CTA no significant acute abnormality 2. Elevated troponin-type II TN trended troponin x3 Monitor on the telemetry pt is on Eliquis for A-fib 3. Hyponatremia - resolved unknown etiology Resolved with IVF, BS control, repeat bmp home med HCTZ 5. Atrial fibrillation - rate controlled continue Eliquis not on BB HR controlled 6. DM2 ACHS SSI VTE ppx: on EliquisFull code Work-up negative, symptoms resolved, back to baseline Discussed with Daughter and [facility] - Consulted CMAwaiting placementPossible DC once placement is arranged at 1028 RPT #: [id number] OF REPORT PRProgress [id number]:27:00L.[id number] able for patient uvhnBZSHAYPMATVASK3719-62-89R79:29:32 [facility] 2022-06-04 21:32:00 [id number] KzPlVQ2OJoOnd1tw4+qATTKykS0v0 uhsYwE0EWvkCrfyF0u/cXZkZFjT8959-20-13W32:32:00 [facility])Wound Care Consultation NoteREPORT#:[id number] REPORT STATUS: SignedDATE:06/04/22 TIME:2131 PATIENT: FRAN SANTAMARIA UNIT #: [id number]#: [id number] [facility] AGE: 71 SEX: M ATTEND: Cheikh Gutierrez AUTHOR: Yakov Kate MD * ALL edits or amendments must be made on the electronic/computer document * History of Present IllnessRequesting Clinician: Arleen Cochran for consult:sacral mgmtHPI:Mr. Fran Peterson is a 71 year old with hx of massive CVA x5 (per patient), hypertension, atrial fibrillation, diabetes mellitus, coronary artery disease, status post stent placement presented to the ED for altered mental status. Mentation improved and patient is on 1:1 sitter History Past HistoryMedications:Home Medications:Medication Dose/Rte/Freq Days Qty Entered Last Max Daily Dose Reviewed CITALOPRAM (CeleXA) 10 MG PO DAILY 08/08/18 05/31/22Strength: 10 MG TAB 2343 1939 HYDROCHLOROTHIAZIDE 12.5 MG PO DAILY 08/08/18 05/30/22 (HCTZ) 2344 0459Strength: 12.5 MG CAP SAXAGLIPTIN (ONGLYZA) 5 MG PO DAILY 08/08/18 05/31/22Strength: 5 MG TAB 2344 193 ASCORBIC ACID (VITAMIN C) 500 MG PO DAILY 08/08/18 05/31/22Strength: 500 MG TAB 2345 1940 ATORVASTATIN (LIPITOR) 40 MG PO BEDTIME 08/08/18 05/31/22Strength: 40 MG TAB 2345 193 FINASTERIDE (PROSCAR) 08/08/18 05/31/22Strength: 5 MG TAB 2346 194 TAMSULOSIN ER (FLOMAX) 0.8 MG PO DAILY 08/08/18 05/31/22Strength: 0.4 MG CAP.SR.24H 2346 1938 APIXABAN (ELIQUIS) 5 MG PO BID 08/08/18 05/31/22Strength: 5 MG TAB 2347 1938 metFORMIN (GLUCOPHAGE) 850 MG PO TID 08/08/18 05/31/22Strength: 850 MG TAB 2341938 traZODone (DESYREL) 150 MG PO BEDTIME 08/08/18 05/31/22Strength: 150 MG TAB 2341938 OXYBUTYNIN (DITROPAN) 5 MG PO BID 08/08/18 05/31/22Strength: 5 MG TAB 2351939 KETOCONAZOLE 1 APPLIC TOPICAL 08/08/18 05/31/22 (NIZORAL 2%) MOWEFR 2351938Strength: 120 ML SHAMPOO KETOCONAZOLE 1 APPLIC TOPICAL 08/08/18 05/31/22 (NIZORAL 2%) DAILY 2354 1938Strength: 75 GM CREAM traZODone (DESYREL) 150 MG PO 08/09/18 05/31/22Strength: 150 MG TAB BEDTIME PRN 0000 1938 INSOMNIA OMEGA-3 FATTY ACIDS 1,000 MG PO DAILY 08/09/18 05/31/22 (FISH OIL) 0001 1938Strength: 1,000 MG CAP DOCUSATE SODIUM 100 MG PO 30 08/10/18 05/31/22 (COLACE) Q12H PRN PRN 0922 1938Strength: 100 MG CAP CONSTIPATION FLUTICASONE PROPIONATE 1 SPRAY NASAL BID 30 08/10/18 05/31/22 (FLONASE 50 MCG/ACT 091938 NASAL)Strength: 16 GM SPRAY FAMOTIDINE (PEPCID) 20 MG PO BID 30 08/10/18 05/31/22Strength: 20 MG TAB 0924 1939 METOPROLOL SUCC XL 25 MG PO DAILY 30 05/31/22 05/31/22 (TOPROL XL) 1043 1940Strength: 25 MG TAB.SR.24H Current Hospital Medications:Anti-Infective Agents Sig/Manuel Start time Last Medication Dose Route Stop Time Status Admin Ketoconazole 1 APPLIC DAILY 05/30 900 AC 06/02 (Nizoral 2% Shampoo TOPICAL 06/13 08 0939 120 ML) Autonomic Drugs Sig/Manuel Start time Last Medication Dose Route Stop Time Status Admin Tamsulosin HCl 0.8 MG DAILY 05/30 900 AC 06/04 (FLOMAX) PO 06/29 08 09 Blood Formation,Coagulation Sig/Manuel Start time Last [...] Atorvastatin Calcium 40 MG BEDTIME 05/30 2100 AC 06/04 (LIPITOR) PO 06/29 Central Nervous System Agents Sig/Manuel Start time Last Medication Dose Route Stop Time Status Admin Divalproex Sodium 500 MG BID 06/01 2100 AC 06/04 (DEPAKOTE) PO 07/01 Aspirin 81 MG DAILY 05/30 1133 AC 06/04 (ECOTRIN) PO 06/29 113 09 Citalopram 10 MG DAILY 05/30 09 AC 06/04 Hydrobromide PO 06/29 08 0927 (CeleXA) Trazodone HCl 150 MG BEDTIME PRN 05/30 0500 AC 06/01 (DESYREL) PO 06/29 0459 0157 Electrolytic, Caloric, And Shanique Sig/Manuel Start [...] Human Lispro See Dose AC HS 05/30 07 AC 06/04 (HUMALOG) Insts (1) SUBQ 06/29 0729 1731 Miscellaneous Therapeutic Agen Sig/Manuel Start time Last Medication Dose Route Stop Time Status Admin Finasteride 5 MG DAILY 05/30 09 AC 06/04 (PROSCAR) PO 06/29 459 0927 Smooth Muscle Relaxants Sig/Manuel Start time Last Medication Dose Route Stop Time Status Admin Oxybutynin Chloride 5 MG BID 05/30 900 AC 06/04 (DITROPAN) PO 06/29 0859 2052 Dose Instructions:(1)Insulin Human Lispro (HUMALOG): S/SCALE LOW Allergies:Coded Allergies:No Known Allergies (05/29/22) Unable to Obtain HistoryUnable to obtain due to: altered mental status Review of SystemsUnable to obtain due to:altered and circular in reasoning ObjectiveVS/I O:Last Documented: Result Date Time Pulse Ox 98 06/04 2028 B/P 133/73 06/04 2028 B/P Mean 92.8 06/04 2028 Temp 99.5 06/04 2028 Pulse 63 06/04 2028 Resp 16 06/04 2028 O2 Delivery Room air 06/04 163 24 hour I O ending at 0700: 06/04 0700 06/03 1900 Intake Total 500 Output Total Balance 500 Intake, Oral 500 General appearance: chronically ill appearingHead/Eyes: atraumaticNeck: no JVDCardiovascular: no rubRespiratory: symmetric expansionExtremities: no edemaMusculoskeletal: fair muscle toneNeuro/OPAL MINER: disorientedSkin: lesions (multiple abrasions) Wound AssessmentWound Assessment 1: Type/cause: pressure Wound location: heel Tissue layers: limited to skin breakdown Site condition: no drainage, no ecchymosis, no erythema Stage of pressure ulcer: stage IWound Assessment 2: Type/cause: chronic Wound location: foot Site condition: no drainage, no ecchymosis, no erythemaWound Assessment 3: Type/cause: pressure Wound location: buttock Site condition: no drainage, no ecchymosis, no erythema Stage of pressure ulcer: stage II Diagnosis, Assessment PlanProblem List/A P: 1. Decubitus ulcer of buttock, [...] open to air 5. Altered mental status at 2225 RPT #: [id number] OF REPORT BJZsskjbitwzdu5105-48-61V35:32:00L.[id number] 281AVAvailable for patient keseTHHHKSYXHCOSSR4823-79-18B73:25:34 [facility] 2022-06-04 14:23:00 [id number] 4qGftdfPMroMUj46c2pd1mGYpnDbB VkBLdJczEdJBCRVXGwg2MHHmGoo1811-59-40M30:23:00 [facility] ([facility])Hospitalist Progress NoteREPORT#:[id number] REPORT STATUS: SignedDATE:06/04/22 TIME:1423 PATIENT: FRAN SANTAMARIA UNIT #: [id number]#: [id number] [address] AGE: 71 SEX: M ATTEND: Cheikh Gutierrez [facility] AUTHOR: Cheikh Gutierrez MD * ALL edits or amendments must be made on the electronic/computer document * SubjectiveChief complaint:No acute eventsHPI:71-year-old male with PMHx of massive CVA x5 (per patient), hypertension, atrialfibrillation, diabetes mellitus, coronary artery disease, status post stent placement presented to the ED for altered mental status. Of note, it was unclear when the patient was last seen at his normal baseline mental status. The staff at his nursing facility noticed that he had repetitive speech today. In the ED, his NIH score was reported as 0. Head CT and CTA no acute findings or significant stenosis. He was not a candidate for tPA or endovascular therapydue to the time of onset of his symptoms and because the patient is on Eliquis. EKG showed A-fib with HR 77. UA negative for UTI. Found elevated troponin. Vitals stable. Upon my evaluation patient is alert, orientated x4, appearing hismentation back to at his baseline. He is a good historian. Denies dizziness, chest pain, shortness of breath, abdominal pain, or nausea vomiting. Patient isincontinence. Patient just wants to be changed. Noted involuntary jerking movement of the left upper extremity. Patient states he usually has low BP. BP nl during ED stay. He is admitted for further evaluation and management. Objective GeneralVS/I O:Vital Signs: Date Time Temp Pulse Resp B/P B/P Pulse O2 O2 Flow FiO2 Mean Ox Delivery Rate 06/04 1057 [...] Weight (lb): Weight (oz): Weight (kg): 71.400 Medications:Active Meds + DC'd Last 24 HrsDivalproex Sodium (DEPAKOTE) 500 MG BID PO Lisinopril (ZESTRIL) 2.5 MG DAILY PO Metoprolol Succinate (TOPROL XL) 25 MG DAILY PO Apixaban (ELIQUIS) 5 MG Q12HR PO Atorvastatin Calcium (LIPITOR) 40 MG BEDTIME PO Aspirin (ECOTRIN) 81 MG DAILY PO Citalopram Hydrobromide (CeleXA) 10 MG DAILY PO Finasteride (PROSCAR) 5 MG DAILY PO Ketoconazole (Nizoral 2% Shampoo 120 ML) 1 APPLIC DAILY TOPICAL Oxybutynin Chloride (DITROPAN) 5 MG BID PO Tamsulosin HCl (FLOMAX) 0.8 MG DAILY PO Insulin Human Lispro (HUMALOG) S/SCALE LOW AC HS SUBQ Dextrose/Water (Dextrose 50% W SYRINGE) 50 ML ASDIR PRN IV (CKD) Docusate Sodium (COLACE) 100 MG Q12H PRN PRN PO Trazodone HCl (DESYREL) 150 MG BEDTIME PRN PO Physical ExamGeneral appearance: alertHead/Eyes: atraumatic, normal conjunctiva/sclera, normal eyelids/periorb., normocephalic, PERRLENT: moist mucosal membranesNeck: full range of motion, normal thyroid, supple/no meningismus, no JVD, no masses or swellingCardiovascular: normal capillary refill, normal heart sounds, regular rate rhythmRespiratory: aerating well, clear to auscultation, symmetric expansion, no distressAbdomen: non-tender, normal bowel sounds, soft, no distentionGenitourinary: urine, no flank painExtremities: normal capillary refill, no cyanosis, no edemaMusculoskeletal: normal inspectionNeuro/OPAL MINER: right hemiparesis, alert, oriented X 3, normal speech, no sensory deficitsSkin: normal color, normal temperatureLymphatics: neck normal, no lymphadenopathyPsychiatry: normal affect ResultsFindings/Data:Laboratory Tests 06/04 06/04 06/03 06/03 1053 0415 1999 1710 Chemistry Sodium (134 - 147 mmol/L) 131 L Potassium (3.4 - 5.0 mmol/L) 3.9 Chloride (100 - 108 mmol/L) 101 Carbon Dioxide (21 - 32 mmol/L) 23 Anion Gap (4.0 - 15.0 GAP calc) 7.0 BUN (7 - 18 MG/DL) 8 Creatinine (0.8 - 1.3 MG/DL) 0.6 L Glomerular Filtr Rate (>60 estGFR) >=60 max estimate Glucose (70 - 110 MG/DL) 108 POC [...] (Auto) (20.5 - 51.1 %) 13.6 L Bailey % (Auto) (1.7 - 9.3 %) 10.3 H Eos % (Auto) (0.0 - 6.0 %) 4.9 Baso % (Auto) (0.0 - 2.0 %) 1.0 Neut # (Auto) (1.8 - 7.6 K/mm3) 4.2 Lymph # (Auto) (0.6 - 3.0 K/mm3) 0.8 Bailey # (Auto) (0.2 - 1.5 K/mm3) 0.6 Eos # (Auto) (0.0 - 0.4 K/mm3) 0.3 Baso # (Auto) (0.0 - 0.2 K/mm3) 0.1 Abs Immat Gran (auto) (0.00 - 0.03 x10 3/uL) 0.07 H Add Manual Diff (CRITERIA DIFF/SCN) NO Immature Gran % (0.0 - 5.0 %) 1.1 Nucleated RBC % (0.0 - 1.0 /100WBC%) 0.0 Diagnosis, Assessment PlanConsultants: cardiology Free Text DxA P NotesFree text DxA P notes:71 yo male with PMHX of multiple CVAx5, CAD, HTN, DM2 admitted for 1. Acute metabolic encephalopathy-Baseline dementia-resolved and back to baseline, MRI brain shows no acute process - Left frontoparietal convexity meningioma again noted-Concern is that of seizure with postictal confusion. Neurology added depakote appearing back to his baseline no obvious convincing metabolic or neurologic etiology head CT/CTA no significant acute abnormality 2. Elevated troponin-type II TN trended troponin x3 Monitor on the telemetry pt is on Eliquis for A-fib 3. Hyponatremia - resolved unknown etiology Resolved with IVF, BS control, repeat bmp home med HCTZ 5. Atrial fibrillation - rate controlled continue Eliquis not on BB HR controlled 6. DM2 ACHS SSI VTE ppx: on EliquisFull code Work-up negative, symptoms resolved, back to baseline Discussed with Daughter and [facility] - Consulted CMAwaiting placementPossible DC once placement is arranged at 1424 RPT #: [id number] OF REPORT PRProgress [id number]:23:00L.[id number] able for patient kvzzPNZSXYAUVWMXQP6976-98-78D06:25:01 [facility] 2022-06-04 09:10:00 [id number] tfGx9+pEc/ZL8UWoVX5lXfnSyw1eR tjyHmULylYP423amBNGIzgcLopt6598-75-78E58:10:00 [facility])Cardiology Progress NoteREPORT#:[id number] REPORT STATUS: SignedDATE:06/04/22 TIME:0910 PATIENT: FRAN SANTAMARIA UNIT #: [id number]#: [id number] ROOM/BED: E803-5SIB: 50 AGE: 71 SEX: M ATTEND: Cheikh Gutierrez [facility] AUTHOR: Sheree JuniorP * ALL edits or amendments must be made on the electronic/computer document * SubjectivePatient reports:No: complaints, chest pain, palpitations, shortness of breath. Objective GeneralVS/I O:24 hour I O ending at 0700: 06/04 0700 12 1900 Intake Total 500 Output Total Balance 500 Intake, Oral 500Vital Signs Date Temp Pulse Resp B/P B/P Mean Pulse Ox FiO2 06/03-06/04 36.4-37.0 49-70 14-16 117-132/55-77 77.1-94.9 98-100 PATIENT WEIGHT: Weight (lb): Weight (oz): Weight (kg): 71.400 Medications:Active Meds + DC'd Last 24 HrsDivalproex Sodium (DEPAKOTE) 500 MG BID PO Lisinopril (ZESTRIL) 2.5 MG DAILY PO Metoprolol Succinate (TOPROL XL) 25 MG DAILY PO Apixaban (ELIQUIS) 5 MG Q12HR PO Atorvastatin Calcium (LIPITOR) 40 MG BEDTIME PO Aspirin (ECOTRIN) 81 MG DAILY PO Citalopram Hydrobromide (CeleXA) 10 MG DAILY PO Finasteride (PROSCAR) 5 MG DAILY PO Ketoconazole (Nizoral 2% Shampoo 120 ML) 1 APPLIC DAILY TOPICAL Oxybutynin Chloride (DITROPAN) 5 MG BID PO Tamsulosin HCl (FLOMAX) 0.8 MG DAILY PO Insulin Human Lispro (HUMALOG) S/SCALE LOW AC HS SUBQ Dextrose/Water (Dextrose 50% W SYRINGE) 50 ML ASDIR PRN IV (CKD) Docusate Sodium (COLACE) 100 MG Q12H PRN PRN PO Trazodone HCl (DESYREL) 150 MG BEDTIME PRN PO Physical ExamGeneral appearance: chronically ill appearing, alert, awake, no acute distress, pleasant, conversationalNeck: non-tender, no JVDCardiovascular: CV assessment: irregularly irregular Murmur assessment:heart murmurRespiratory: decreased breath sounds, no distressAbdomen: soft, non-tender, normal bowel sounds, no distentionGenitourinary: no flank pain, no urinary catheterLower extremity: LE assessment: no calf tenderness, no edemaMusculoskeletal: decreased ROMNeuro/OPAL MINER: alert (confused)Skin: poor skin turgorPsychiatry: abnl judgment/insight, normal mood ResultsFindings/Data:Laboratory Tests 06/04/22 0415:[Embedded Image Not Available] 06/04/22 0342:[Embedded Image Not Available] 06/03/22 0450:[Embedded Image Not Available] Results: labs reviewed, vital signs reviewed, rhythm personally rev'dTelemetry Interpretation:afib with controlled rate Diagnosis, Assessment PlanPlan discussed with: patient Free Text DxA P NotesFree Text DxA P Notes:71 YO male chronically ill-looking male, appear confused, [facility] The patient has PMH of CVA, AFib on Eliquis, CAD with prior PCI who presented to ED with abnormal speech. Initial Head imaging negative for acute IC finding. Troponin came back elevated and cardiology consultation is requested. Troponin: 160.5->223.5. EKG showed atrial fibrillation with controlled rate, no acute ST/T wave changes. 1. Chronc atrial fibrillation - rate controlcontinue metoprolol XL and Eliquis 5 mg BIDechocardiogram LVEF 45-49%, no signficant valvular disease 2. Positive troponin - likely Type II MIKnown CAD with prior stentleaning toward Type II TN in the setting of possible TIA or ?UTI Troponin: 160.5->223.5->100.1->61.6continue ASA 81 mg daily, atorvastatin 40 mg daily, metoprolol suc 25 mg dailyechocardiogram LVEF 45-49%telemetryoutpatient stresst test 3. Speech disturbance ? TIA, ?encephalopathy, ? Dementiaper primary teampatient is pleasantly confused 4. UA positive for bacteriuriamanage per primary team 5. Hx of CVA 6. Hypertensioncontinue low dose ACEI and BB 7. LV Systolic dysfunctionLVEF 45-49%continue metoprolol succinate 25 mg daily and lisinopril 2.5 mg daily no congestive symptoms MPOA/sister Ayla Ace phone [phone]. No further cardiac workup. Outpatient follow-up with Dr. Chavez in 2 weeks. at 1104 at 1000 RPT #: [id number] OF REPORT PRProgress gtbc2326-17-15I17:10:00L.[id number] able for patient vqvsYKXISWGJRVSXMT3113-03-76O57:05:06 [facility] 2022-06-03 19:16:00 [id number] cx4Ut2/D/PIFkM95CG+clk/f3HmNI 6PaKD76hvgISJiVeplPVrzvRlRT3223-26-82B55:16:00 [facility] ([facility])Infect Disease Consult NoteREPORT#:[id number] REPORT STATUS: SignedDATE:06/03/22 TIME:1915 PATIENT: FRAN SANTAMARIA UNIT #: [id number]#: [id number] ROOM/BED: Farhe[place].U217-0RPA: 50 AGE: 71 SEX: M ATTEND: Cheikh Gutierrez [facility] AUTHOR: David Stringer MD * ALL edits or amendments must be made on the electronic/computer document * History of Present IllnessChief complaint:R/o scabiesHPI:71-year-old male with h/o massive CVA x5 (per patient), hypertension, atrial fibrillation, diabetes mellitus, coronary artery disease, who presented to the ED for worsening confusion associated with repetitive speech. Of note, it was unclear when the patient was last seen at his normal baseline mental status. In the ED, Head CT and CTA showed no acute findings. ID consulted to r/o conniebies. History - Adult longitudinalPast medical history:Reports: Atrial fibrillation, Coronary artery disease, Hypertension, Ischemic stroke. Additional medical history:CVA, hypertension, atrial fibrillation, diabetes mellitus, coronary artery diseasePast surgical history:Reports: PCI. Family history:Reports: Diabetes. 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 Review of SystemsUnable to obtain due to:Confused Objective GeneralVS/I O:Vital Signs Date Temp Pulse Resp B/P B/P Mean Pulse Ox FiO2 /-06/03 36.4-36.7 49-76 16 114-129/50-68 74.0-87.9 98-100 Last Documented: Result Date Time Pulse Ox 100 06/03 1105 B/P 126/63 12 1105 B/P Mean 84.1 06/03 1105 Temp 36.6 06/03 1105 Pulse 49 06/03 1105 Resp 16 06/03 1105 O2 Delivery Room air 06/03 0453 Vital Signs: Date Time Temp Pulse Resp B/P B/P Pulse O2 O2 Flow FiO2 Mean Ox Delivery Rate 06/03 1105 36.6 49 16 126/63 84.1 100 06/03 0721 36.4 76 16 129/68 87.9 98 06/03 0453 36.4 69 16 122/50 74.0 98 Room air 06/02 2258 36.7 72 16 114/66 81.7 99 Room air PATIENT WEIGHT: Weight (lb): Weight (oz): Weight (kg): 71.400 Physical ExamGeneral appearance: chronically ill appearing, awakeHead/Eyes: atraumatic, clear cornea, EOMI, normal conjunctiva/sclera, normal eyelids/periorb, normocephalicENT: moist mucosal membranes, normal noseNeck: full range of motion, non-tender, supple/no meningismusCardiovascular: regular rate rhythmRespiratory: symmetric expansion, no distressAbdomen: normal bowel sounds, soft, no CVA tenderness, no distention, no guardingGenitourinary: no flank painExtremities: no clubbing, no cyanosisMusculoskeletal: no joint swellingNeuro/OPAL MINER: altered mental statusSkin: Multiple signs of scratching in the legs and arms, I did not see lesions in the interdigital regions. No vesicles.Psychiatry: abnl judgment/insight, normal mood Diagnosis, Assessment Plan Free Text DxA P NotesFree text DxA P notes:Laboratory Tests 06/03/22 0450:[Embedded Image Not Available] Imaging:MRI brain reviewed 05/30CXR reviewed 05/29 Assessment:1. Rash.2. Encephalopathy. Plan:1. I do not think the clinical findings are c/w scabies, I am most concerned about possible bedbugs.2. Recommend infection control evaluation.3. Monitor CBC and temperature.4. Case discussed with hospitalist. Thank you for this consult. at 1107 RPT #: [id number] OF REPORT ZLMdaflxqtypmi0259-20-45X52:16:00L.[id number] 202AVAvailable for patient gmvdADXDZAKKBRTCAK0619-26-25U25:07:46 [facility] 2022-06-03 11:15:00 [id number] EOdK2At4kk3T4I4JOn7IPlhTJFqcl oxlMApiFgv67rEiFsvQdA5sjaAJ6063-06-21M13:15:00 [facility] ([facility]ITALNeurology Progress NoteREPORT#:[id number] REPORT STATUS: SignedDATE:06/03/22 TIME:1115 PATIENT: FRAN SATNAMARIA UNIT #: [id number]#: [id number] [facility] AGE: 71 SEX: M ATTEND: Cheikh Gutierrez MDA AUTHOR: Romy Marie MD * ALL edits or amendments must be made on the electronic/computer document * SubjectiveChief Complaint:Altered mental statusHPI:Resting comfortably. Offers no new complaints. Review of SystemsAll systems rev neg: except as marked Objective GeneralVS:Last Documented: Result Date Time Pulse Ox 99 06/03 1936 B/P 117/58 06/03 1936 B/P Mean 77.5 06/03 1936 Temp 36.7 06/03 1936 Pulse 60 06/03 1936 Resp 14 06/03 1936 O2 Delivery Room air 06/03 045 PATIENT WEIGHT: Weight (lb): Weight (oz): Weight (kg): 71.400 MedicationsCurrent Home MedicationsCITALOPRAM (CeleXA) 10 MG PO DAILY HYDROCHLOROTHIAZIDE (HCTZ) [...] BID KETOCONAZOLE (NIZORAL 2%) 1 APPLIC TOPICAL MOWEFR KETOCONAZOLE (NIZORAL 2%) 1 APPLIC TOPICAL DAILY traZODone (DESYREL) 150 MG PO BEDTIME PRN INSOMNIA OMEGA-3 FATTY ACIDS (FISH OIL) 1,000 MG PO DAILY DOCUSATE SODIUM (COLACE) 100 MG PO Q12H PRN PRN CONSTIPATION FLUTICASONE PROPIONATE (FLONASE 50 MCG/ACT NASAL) 1 SPRAY NASAL BID FAMOTIDINE (PEPCID) 20 MG PO BID METOPROLOL SUCC XL (TOPROL XL) 25 MG PO DAILY Active Meds + DC'd Last 24 HrsDivalproex Sodium (DEPAKOTE) 500 MG BID PO Lisinopril (ZESTRIL) 2.5 MG DAILY PO Metoprolol Succinate (TOPROL XL) 25 MG DAILY PO Apixaban (ELIQUIS) 5 MG Q12HR PO Atorvastatin Calcium (LIPITOR) 40 MG BEDTIME PO Aspirin (ECOTRIN) 81 MG DAILY PO Citalopram Hydrobromide (CeleXA) 10 MG DAILY PO Finasteride (PROSCAR) 5 MG DAILY PO Ketoconazole (Nizoral 2% Shampoo 120 ML) 1 APPLIC DAILY TOPICAL Oxybutynin Chloride (DITROPAN) 5 MG BID PO Tamsulosin HCl (FLOMAX) 0.8 MG DAILY PO Insulin Human Lispro (HUMALOG) S/SCALE LOW AC HS SUBQ Dextrose/Water (Dextrose 50% W SYRINGE) 50 ML ASDIR PRN IV (CKD) Docusate Sodium (COLACE) 100 MG Q12H PRN PRN PO Trazodone HCl (DESYREL) 150 MG BEDTIME PRN PO Physical ExamGeneral appearance: alert, awakeNeck: no masses or swellingRespiratory: aerating well, no distressExtremities: moves allNeuro/OPAL MINER: alert, oriented X 4, normal speech, EOMINeuro comment:rash all over body more in the lower extremities with some tracks SpeechSpeech: normal Mental StatusOrientation:Yes: to time, to place, to person. No: to situation. Mental status comments:he was oriented to the month, year and president Cranial NervesCranial nerves comments:PERRL, EOMI, no gaze deviatiion. right NL flattening Sensory ExamSensory comments:Decreased pinprick sensation in bilateral toes Motor TestingMotor testing comments:Normal strength throughout except, right leg with contraction, patient reports right knee pain Cerebellar TestCerebellar test:Normal R finger/nose/finger, Normal L finger/nose/fingerNystagmus: absent ReflexesPlantar reflexes:Up: Right. Down: Left. GaitGait comments:Deferred ResultsFindings/Data:Laboratory Tests 06/03 1710 1109 0754 Chemistry POC [...] (Auto) (20.5 - 51.1 %) 13.4 L Bailey % (Auto) (1.7 - 9.3 %) 9.3 Eos % (Auto) (0.0 - 6.0 %) 7.9 H Baso % (Auto) (0.0 - 2.0 %) 1.0 Neut # (Auto) (1.8 - 7.6 K/mm3) 5.2 Lymph # (Auto) (0.6 - 3.0 K/mm3) 1.0 Bailey # (Auto) (0.2 - 1.5 K/mm3) 0.7 Eos # (Auto) (0.0 - 0.4 K/mm3) 0.6 H Baso # (Auto) (0.0 - 0.2 K/mm3) 0.1 Abs Immat Gran (auto) (0.00 - 0.03 x10 3/uL) 0.06 H Add Manual Diff (CRITERIA DIFF/SCN) NO Immature Gran % (0.0 - 5.0 %) 0.8 Nucleated RBC % (0.0 - 1.0 /100WBC%) 0.0 Results: labs reviewed Diagnosis, Assessment PlanFree Text A P:71 years old male who is being evaluated for altered mental status. CT of the brain - No evidence of acute pathology. Senescent changes. Left frontal encephalomalacia unchanged. CTA head and neck - Scattered atherosclerotic plaque with mild less than 50% narrowingat the left carotid bifurcation. No other area of significant stenosis. No intracranial large vessel occlusion. Hemoglobin A1c 6.0, LDL 43 Diagnoses:1. Acute encephalopathy 2. History of chronic infarcts3. Atrial fibrillation4. Diabetes mellitus5. Dementia6. CAD7. History of tobacco use8. Generalized rash Plan:Telemetry.Reviewed CT of the brain.Reviewed CTA head and neck.MRI of the brain - pending.Echo - pending.Continue Aspirin, statin and Eliquis.PT/OT and speech evaluation.Supportive care.Neurology to follow. 05/31 stable; no evidence for new stroke 06/01 review of MRI shows moderate to large area of encephalomalacia in Left superior fromtalarea + what appears to be a meningioma just posterior to this. Concern is that of seizure with postictal confusion. Will add depakote and follow as outpatient in view of difficulty of obtainingEEG on the weekend. 06/02 - pending EEG. No reported seizures. Discussed with nurse, patient. Mental status is better today. He is fully oriented. 06/03 - neurologically stable. Pending EEG. Supportive care.Consultants: cardiology at 2119 RPT #: [id number] OF REPORT PRProgress zjhp3509-07-53E97:15:00L.[id number] able for patient bcjsYFTRNCAWASPWBD0865-99-30E25:20:13 [facility] 2022-06-03 07:46:00 [id number] 0c1piXNqryNLMhiOlj8jEV9cgM/XY 1DAf6pUaaae8cqULw4HhtLOLPwe6518-08-19X04:46:00 [facility] ([facility])Hospitalist Progress NoteREPORT#:[id number] REPORT STATUS: SignedDATE:06/03/22 TIME:0746 PATIENT: FRAN SANTAMARIA UNIT #: [id number]#: [id number] [facility] 50 AGE: 71 SEX: M ATTEND: Cheikh Gutierrez MDA AUTHOR: Anneliese Eden MD * ALL edits or amendments must be made on the electronic/computer document * SubjectiveChief complaint:stable and asleepHPI:71-year-old male with PMHx of massive CVA x5 (per patient), hypertension, atrialfibrillation, diabetes mellitus, coronary artery disease, status post stent placement presented to the ED for altered mental status. Of note, it was unclear when the patient was last seen at his normal baseline mental status. The staff at his nursing facility noticed that he had repetitive speech today. In the ED, his NIH score was reported as 0. Head CT and CTA no acute findings or significant stenosis. He was not a candidate for tPA or endovascular therapydue to the time of onset of his symptoms and because the patient is on Eliquis. EKG showed A-fib with HR 77. UA negative for UTI. Found elevated troponin. Vitals stable. Upon my evaluation patient is alert, orientated x4, appearing hismentation back to at his baseline. He is a good historian. Denies dizziness, chest pain, shortness of breath, abdominal pain, or nausea vomiting. Patient isincontinence. Patient just wants to be changed. Noted involuntary jerking movement of the left upper extremity. Patient states he usually has low BP. BP nl during ED stay. He is admitted for further evaluation and management. Objective GeneralVS/I O:Vital Signs: Date Time Temp Pulse Resp B/P B/P Pulse O2 O2 Flow FiO2 Mean Ox Delivery Rate 06/03 0721 97.5 76 16 129/68 87.9 98 06/03 0453 97.5 69 16 122/50 74.0 98 Room air 06/02 2258 98.1 72 16 114/66 81.7 99 Room air 06/02 1613 97.7 70 16 158/78 104.3 98 06/02 1121 98.2 57 16 132/67 89.0 98 PATIENT WEIGHT: Weight (lb): Weight (oz): Weight (kg): 71.400 Physical ExamGeneral appearance: sleeping comfortablyHead/Eyes: atraumatic, normal conjunctiva/sclera, normal eyelids/periorb., normocephalic, PERRLENT: moist mucosal membranesNeck: full range of motion, normal thyroid, supple/no meningismus, no JVD, no masses or swellingCardiovascular: normal capillary refill, normal heart sounds, regular rate rhythmRespiratory: aerating well, clear to auscultation, symmetric expansion, no distressAbdomen: non-tender, normal bowel sounds, soft, no distentionGenitourinary: urine, no flank painExtremities: normal capillary refill, no cyanosis, no edemaMusculoskeletal: normal inspectionNeuro/OPAL MINER: right hemiparesis, alert, oriented X 3, normal speech, no sensory deficitsSkin: normal color, normal temperatureLymphatics: neck normal, no lymphadenopathyPsychiatry: normal affect ResultsFindings/Data:Laboratory Tests 06/02 1615 1123 Chemistry POC Glucose [...] (Auto) (20.5 - 51.1 %) 13.4 L Bailey % (Auto) (1.7 - 9.3 %) 9.3 Eos % (Auto) (0.0 - 6.0 %) 7.9 H Baso % (Auto) (0.0 - 2.0 %) 1.0 Neut # (Auto) (1.8 - 7.6 K/mm3) 5.2 Lymph # (Auto) (0.6 - 3.0 K/mm3) 1.0 Bailey # (Auto) (0.2 - 1.5 K/mm3) 0.7 Eos # (Auto) (0.0 - 0.4 K/mm3) 0.6 H Baso # (Auto) (0.0 - 0.2 K/mm3) 0.1 Abs Immat Gran (auto) (0.00 - 0.03 x10 3/uL) 0.06 H Add Manual Diff (CRITERIA DIFF/SCN) NO Immature Gran % (0.0 - 5.0 %) 0.8 Nucleated RBC % (0.0 - 1.0 /100WBC%) 0.0 Diagnosis, Assessment PlanConsultants: cardiology Free Text DxA P NotesFree text DxA P notes:71 yo male with PMHX of multiple CVAx5, CAD, HTN, DM2 admitted for 1. Acute metabolic encephalopathy-Baseline dementia-resolved and back to baseline, MRI brain shows no acute process - Left frontoparietal convexity meningioma again noted-Concern is that of seizure with postictal confusion. Neurology added depakote appearing back to his baseline no obvious convincing metabolic or neurologic etiology head CT/CTA no significant acute abnormality 2. Elevated troponin-type II TN trended troponin x3 Monitor on the telemetry pt is on Eliquis for A-fib 3. Hyponatremia - resolved unknown etiology Resolved with IVF, BS control, repeat bmp home med HCTZ 5. Atrial fibrillation - rate controlled continue Eliquis not on BB HR controlled 6. DM2 ACHS SSI VTE ppx: on EliquisFull code Work-up negative, symptoms resolved, back to baseline Discussed with Daughter and [facility] - Consulted CM at 0748 RPT #: [id number] OF REPORT PRProgress cquj8546-59-58X21:46:00L.[id number] able for patient ovmpOGHCQQXDRCCMAX6106-65-82L49:49:01 [facility] 2022-06-02 11:36:00 [id number] s7V1hUymAKAy6L1Imk9PidrYBSgcG dn5Ghr/DWZfQMGtGx+QBKSwOs7X1323-09-52Y27:36:00 [facility] ([facility])Hospitalist Progress NoteREPORT#:[id number] REPORT STATUS: SignedDATE:06/02/22 TIME:1136 PATIENT: FRAN SANTAMARIA UNIT #: [id number]#: [id number] [address] AGE: 71 SEX: M ATTEND: Cheikh Gutierrez MDA AUTHOR: Anneliese Eden MD * ALL edits or amendments must be made on the electronic/computer document * SubjectiveChief complaint:stableHPI:71-year-old male with PMHx of massive CVA x5 (per patient), hypertension, atrialfibrillation, diabetes mellitus, coronary artery disease, status post stent placement presented to the ED for altered mental status. Of note, it was unclear when the patient was last seen at his normal baseline mental status. The staff at his nursing facility noticed that he had repetitive speech today. In the ED, his NIH score was reported as 0. Head CT and CTA no acute findings or significant stenosis. He was not a candidate for tPA or endovascular therapydue to the time of onset of his symptoms and because the patient is on Eliquis. EKG showed A-fib with HR 77. UA negative for UTI. Found elevated troponin. Vitals stable. Upon my evaluation patient is alert, orientated x4, appearing hismentation back to at his baseline. He is a good historian. Denies dizziness, chest pain, shortness of breath, abdominal pain, or nausea vomiting. Patient isincontinence. Patient just wants to be changed. Noted involuntary jerking movement of the left upper extremity. Patient states he usually has low BP. BP nl during ED stay. He is admitted for further evaluation and management. Objective Physical ExamGeneral appearance: confusedHead/Eyes: atraumatic, normal conjunctiva/sclera, normal eyelids/periorb., normocephalic, PERRLENT: moist mucosal membranesNeck: full range of motion, normal thyroid, supple/no meningismus, no JVD, no masses or swellingCardiovascular: normal capillary refill, normal heart sounds, regular rate rhythmRespiratory: aerating well, clear to auscultation, symmetric expansion, no distressAbdomen: non-tender, normal bowel sounds, soft, no distentionGenitourinary: urine, no flank painExtremities: normal capillary refill, no cyanosis, no edemaMusculoskeletal: normal inspectionNeuro/OPAL MINER: right hemiparesis, alert, oriented X 3, normal speech, no sensory deficitsSkin: normal color, normal temperatureLymphatics: neck normal, no lymphadenopathyPsychiatry: normal affect Diagnosis, Assessment PlanConsultants: cardiology Free Text DxA P NotesFree text DxA P notes:71 yo male with PMHX of multiple CVAx5, CAD, HTN, DM2 admitted for 1. Acute metabolic encephalopathy-Baseline dementia-resolved and back to baseline, MRI brain shows no acute process - Left frontoparietal convexity meningioma again noted-Concern is that of seizure with postictal confusion. Neurology added depakote appearing back to his baseline no obvious convincing metabolic or neurologic etiology head CT/CTA no significant acute abnormality neuro check 2. Elevated troponin-type II TN trend troponin x3, EKG x3 Monitor on the telemetry pt is on Eliquis for A-fib 3. Hyponatremia unknown etiology Resolved with IVF, BS control, repeat bmp home med HCTZ 5. Atrial fibrillation continue Eliquis not on BB HR controlled 6. DM2 ACHS SSI VTE ppx: on EliquisFull code Work-up negative, symptoms resolved, back to baseline Discussed with Daughter and she's [facility] - Consult CM at 1138 RPT #: [id number] OF REPORT PRProgress yatb6658-59-27P70:36:00L.[id number] able for patient pohjWIJRNMLQWOTCWS9116-85-56W24:38:49 [facility] 2022-06-02 10:42:00 [id number] 0fFI1cx+jBWzoywgAMACbkX1APNLV pycuEhatpirLHXryyFBWYnjHkDt8830-15-46Z64:42:00 [facility] ([facility]Neu[facility] Progress NoteREPORT#:[id number] REPORT STATUS: SignedDATE:06/02/22 TIME:1041 PATIENT: FRAN SANTAMARIA UNIT #: [id number]#: [id number] [address] AGE: 71 SEX: M ATTEND: Cheikh Gutierrez [facility] AUTHOR: Romy Marie MD * ALL edits or amendments must be made on the electronic/computer document * SubjectiveChief Complaint:Altered mental statusHPI:Nurse present at the bedside. No overnight events. No reported seizures. Review of SystemsAll systems rev neg: except as marked Objective GeneralVS:Last Documented: Result Date Time Pulse Ox 98 06/02 161 B/P 158/78 06/02 161 B/P Mean 104.3 06/02 161 Temp 36.5 06/02 1613 Pulse 70 06/02 1613 Resp 16 06/02 1613 O2 Delivery Room air 05/31 1640 PATIENT WEIGHT: Weight (lb): Weight (oz): Weight (kg): 71.400 MedicationsCurrent Home MedicationsCITALOPRAM (CeleXA) 10 MG PO DAILY HYDROCHLOROTHIAZIDE (HCTZ) [...] BID KETOCONAZOLE (NIZORAL 2%) 1 APPLIC TOPICAL MOWEFR KETOCONAZOLE (NIZORAL 2%) 1 APPLIC TOPICAL DAILY traZODone (DESYREL) 150 MG PO BEDTIME PRN INSOMNIA OMEGA-3 FATTY ACIDS (FISH OIL) 1,000 MG PO DAILY DOCUSATE SODIUM (COLACE) 100 MG PO Q12H PRN PRN CONSTIPATION FLUTICASONE PROPIONATE (FLONASE 50 MCG/ACT NASAL) 1 SPRAY NASAL BID FAMOTIDINE (PEPCID) 20 MG PO BID METOPROLOL SUCC XL (TOPROL XL) 25 MG PO DAILY Active Meds + DC'd Last 24 HrsDivalproex Sodium (DEPAKOTE) 500 MG BID PO Lisinopril (ZESTRIL) 2.5 MG DAILY PO Metoprolol Succinate (TOPROL XL) 25 MG DAILY PO Apixaban (ELIQUIS) 5 MG Q12HR PO Atorvastatin Calcium (LIPITOR) 40 MG BEDTIME PO Aspirin (ECOTRIN) 81 MG DAILY PO Citalopram Hydrobromide (CeleXA) 10 MG DAILY PO Finasteride (PROSCAR) 5 MG DAILY PO Ketoconazole (Nizoral 2% Shampoo 120 ML) 1 APPLIC DAILY TOPICAL Oxybutynin Chloride (DITROPAN) 5 MG BID PO Tamsulosin HCl (FLOMAX) 0.8 MG DAILY PO Albumin Human (OPTISON) 3 ML ONCE PRN IV (DC) Insulin Human Lispro (HUMALOG) S/SCALE LOW AC HS SUBQ Dextrose/Water (Dextrose 50% W SYRINGE) 50 ML ASDIR PRN IV (CKD) Docusate Sodium (COLACE) 100 MG Q12H PRN PRN PO Trazodone HCl (DESYREL) 150 MG BEDTIME PRN PO Physical ExamGeneral appearance: alert, awakeNeck: no masses or swellingRespiratory: aerating well, no distressExtremities: moves allNeuro/OPAL MINER: alert, oriented X 4, normal speech, EOMINeuro comment:rash all over body more in the lower extremities with sometracks SpeechSpeech: normal Mental StatusOrientation:Yes: to time, to place, to person. No: to situation. Mental status comments:he was oriented to the month, year and president Cranial NervesCranial nerves comments:PERRL, EOMI, no gaze deviatiion. right NL flattening Sensory ExamSensory comments:Decreased pinprick sensation in bilateral toes Motor TestingMotor testing comments:Normal strength throughout except, right leg with contraction, patient reports right knee pain Cerebellar TestCerebellar test:Normal R finger/nose/finger, Normal L finger/nose/fingerNystagmus: absent ReflexesPlantar reflexes:Up: Right. Down: Left. GaitGait comments:Deferred ResultsFindings/Data:Laboratory Tests 06/02 1611 1122 0745 Chemistry POC Glucose (70 - 110 mg/dL) [...] (Auto) (20.5 - 51.1 %) 11.9 L Bailey % (Auto) (1.7 - 9.3 %) 9.6 H Eos % (Auto) (0.0 - 6.0 %) 6.2 H Baso % (Auto) (0.0 - 2.0 %) 0.9 Neut # (Auto) (1.8 - 7.6 K/mm3) 4.6 Lymph # (Auto) (0.6 - 3.0 K/mm3) 0.8 Bailey # (Auto) (0.2 - 1.5 K/mm3) 0.6 Eos # (Auto) (0.0 - 0.4 K/mm3) 0.4 Baso # (Auto) (0.0 - 0.2 K/mm3) 0.1 Abs Immat Gran (auto) (0.00 - 0.03 x10 3/uL) 0.04 H Add Manual Diff (CRITERIA DIFF/SCN) NO Immature Gran % (0.0 - 5.0 %) 0.6 Nucleated RBC % (0.0 - 1.0 /100WBC%) 0.0 Results: labs reviewed Diagnosis, Assessment PlanFree Text A P:71 years old male who is being evaluated for altered mental status. CT of the brain - No evidence of acute pathology. Senescent changes. Left frontal encephalomalacia unchanged. CTA head and neck - Scattered atherosclerotic plaque with mild less than 50% narrowingat the left carotid bifurcation. No other area of significant stenosis. No intracranial large vessel occlusion. Hemoglobin A1c 6.0, LDL 43 Diagnoses:1. Acute encephalopathy 2. History of chronic infarcts3. Atrial fibrillation4. Diabetes mellitus5. Dementia6. CAD7. History of tobacco use8. Generalized rash Plan:Telemetry.Reviewed CT of the brain.Reviewed CTA head and neck.MRI of the brain - pending.Echo - pending.Continue Aspirin, statin and Eliquis.PT/OT and speech evaluation.Supportive care.Neurology to follow. 05/31 stable; no evidence for new stroke 06/01 review of MRI shows moderate to large area of encephalomalacia in Left superior fromtalarea + what appears to be a meningioma just posterior to this. Concern is that of seizure with postictal confusion. Will add depakote and follow as outpatient in view of difficulty of obtainingEEG on the weekend. 06/02 - pending EEG. No reported seizures. Discussed with nurse, patient. Mental status is better today. He is fully oriented.Consultants: cardiology at 2212 RPT #: [id number] OF REPORT PRProgress ipmg8491-83-66X04:42:00L.BJIY03892434-7185PIKjoes able for patient tpjcMXEGXZPJYHGOEH8282-09-98F50:12:39 [facility] 2022-06-02 07:21:00 [id number] RW5xEUdZjj2l2jXCXdMcag9oTjMGN J3SaYenBWOBoJPLirLlvWY6hyN40944-77-66S34:21:62144 3-0019 [facility] [id number] [place] [address] PATIENT NAME: FRAN SANTAMARIA ADMIT DATE: 05/30/22ACCOUNT NO: [id number] ROOM NO: [facility] AGE: 71 REPORT TYPE: 360 - QUERY RESPONSE DOCUMENT SEX: M ADMITTING PHYSICIAN: Cheikh Gutierrez MD ATTENDING PHYSICIAN: Cheikh Gutierrez MD Provider Query QUERY TEXT: Clarification Skin Integrity 360MD Query related questions should be directed to: [email or web address] Based on your clinical judgment, please further clarify the known or suspected condition that represents the [insert wound location, description, size] documented in [insert source document(s) and date(s)] The patient's Clinical Indicators include:Admission/Shift Assessment + at 05/30/2022 19:43"Location (body): SACRUMRelated clinical factors: BB:Incontinent bowel/bladderTissue type-worst: Red moist:Red/moist/smooth/shallowAltered level/stage: Stage 2 - Pressure Injury" Hospitalist History Physical by Lucas Cueto at 05/30/2022 02:37"Patient is incontinence." Neurology Consultation Note by Va Carroll at 05/30/2022 12:10"history of multiple strokes with residual right-sided weakness, baseline gait impairment" Admission/Shift Assessment + at 05/30/2022 19:43"Gait impairment: Bed bound"Options provided:-- Pressure Ulcer, Please specify the specific stage (e.g. I, II, III, IV, Unstageable).-- Non Pressure Ulcer, Please specify the area of necrosis if any (e.g. skin breakdown, fat layer exposed, muscle necrosis, bone necrosis).-- Stasis ulcer/varix, Please specify with or without inflammation.-- Cellulitis -- Dermatitis-- Other - I will add my own diagnosis-- Dismiss - Not applicable / Not valid-- Dismiss - Clinically unable to determine / Unknown-- Assign to another provider QUERY RESPONSE: The patient has a pressure ulcer. Query created by: Elva Valdez on 06/01/2022 12:38 PM at 0715 PATIENT NAME: FRAN SANTAMARIA noteL.[id number] for patient lphuZLUYGJFSCQWNDC9899-65-04D17:22:14 [facility] 2022-06-01 15:41:00 [id number] 3uovnA3BJfIJr65pryOWU/dW82Lpg iYV5UiaO3sWy0HGVRrM6SLw1Tem4920-76-26O68:41:00 [facility])Neurology Progress NoteREPORT#:[id number] REPORT STATUS: SignedDATE:06/01/22 TIME:1541 PATIENT: FRAN SANTAMARIA UNIT #: [id number]#: [id number] ROOM/BED: R587-2LBP: 50 AGE: 71 SEX: M ATTEND: Cheikh Gutierrez MDADM AUTHOR: Ramsey Marrero MD * ALL edits or amendments must be made on the electronic/computer document * SubjectivePatient reports:Yes: feeling better. Objective GeneralVS:Last Documented: Result Date Time Pulse Ox 99 06/01 1157 B/P 133/68 06/01 1157 B/P Mean 89.7 06/01 1157 Temp 36.2 06/01 1157 Pulse 76 06/01 1157 Resp 18 06/01 1157 O2 Delivery Room air 05/31 1640 PATIENT WEIGHT: Weight (lb): Weight (oz): Weight (kg): 71.400 MedicationsCurrent Home MedicationsCITALOPRAM (CeleXA) 10 MG PO DAILY HYDROCHLOROTHIAZIDE (HCTZ) [...] BID KETOCONAZOLE (NIZORAL 2%) 1 APPLIC TOPICAL MOWEFR KETOCONAZOLE (NIZORAL 2%) 1 APPLIC TOPICAL DAILY traZODone (DESYREL) 150 MG PO BEDTIME PRN INSOMNIA OMEGA-3 FATTY ACIDS (FISH OIL) 1,000 MG PO DAILY DOCUSATE SODIUM (COLACE) 100 MG PO Q12H PRN PRN CONSTIPATION FLUTICASONE PROPIONATE (FLONASE 50 MCG/ACT NASAL) 1 SPRAY NASAL BID FAMOTIDINE (PEPCID) 20 MG PO BID METOPROLOL SUCC XL (TOPROL XL) 25 MG PO DAILY Active Meds + DC'd Last 24 HrsLisinopril (ZESTRIL) 2.5 MG DAILY PO Metoprolol Succinate (TOPROL XL) 25 MG DAILY PO Diazepam (VALIUM) 2 MG ONCE IM (DC) Apixaban (ELIQUIS) 5 MG Q12HR PO Atorvastatin Calcium (LIPITOR) 40 MG BEDTIME PO Aspirin (ECOTRIN) 81 MG DAILY PO Citalopram Hydrobromide (CeleXA) 10 MG DAILY PO Finasteride (PROSCAR) 5 MG DAILY PO Ketoconazole (Nizoral 2% Shampoo 120 ML) 1 APPLIC DAILY TOPICAL Oxybutynin Chloride (DITROPAN) 5 MG BID PO Tamsulosin HCl (FLOMAX) 0.8 MG DAILY PO Albumin Human (OPTISON) 3 ML ONCE PRN IV Insulin Human Lispro (HUMALOG) S/SCALE LOW AC HS SUBQ Dextrose/Water (Dextrose 50% W SYRINGE) 50 ML ASDIR PRN IV (CKD) Docusate Sodium (COLACE) 100 MG Q12H PRN PRN PO Trazodone HCl (DESYREL) 150 MG BEDTIME PRN PO Physical ExamGeneral appearance: alert, awake Mental StatusOrientation:Yes: to time, to place, to person. No: to situation. ReflexesPlantar reflexes:Up: Right. Down: Left. ResultsFindings/Data:Laboratory Tests 06/01 06/01 05/31 05/31 1148 0748 [...] (Auto) (20.5 - 51.1 %) 13.6 L Bailey % (Auto) (1.7 - 9.3 %) 10.9 H Eos % (Auto) (0.0 - 6.0 %) 6.3 H Baso % (Auto) (0.0 - 2.0 %) 0.7 Neut # (Auto) (1.8 - 7.6 K/mm3) 4.0 Lymph # (Auto) (0.6 - 3.0 K/mm3) 0.8 Bailey # (Auto) (0.2 - 1.5 K/mm3) 0.6 Eos # (Auto) (0.0 - 0.4 K/mm3) 0.4 Baso # (Auto) (0.0 - 0.2 K/mm3) 0.0 Abs Immat Gran (auto) (0.00 - 0.03 x10 3/uL) 0.04 H Add Manual Diff (CRITERIA DIFF/SCN) NO Immature Gran % (0.0 - 5.0 %) 0.7 Nucleated RBC % (0.0 - 1.0 /100WBC%) 0.0 Results: labs reviewed, vital signs reviewed, current med profile rev'd Diagnosis, Assessment PlanFree Text A P:71 years old male who is being evaluated for altered mental status. CT of the brain - No evidence of acute pathology. Senescent changes. Left frontal encephalomalacia unchanged. CTA head and neck - Scattered atherosclerotic plaque with mild less than 50% narrowingat the left carotid bifurcation. No other area of significant stenosis. No intracranial large vessel occlusion. Hemoglobin A1c 6.0, LDL 43 Diagnoses:1. Acute encephalopathy - etiology under investigation on baseline dementia2. History of chronic infarcts3. Atrial fibrillation4. Diabetes mellitus5. Dementia6. CAD7. History of tobacco use8. Generalized rash Plan:Telemetry.Reviewed CT of the brain.Reviewed CTA head and neck.MRI of the brain - pending.Echo - pending.Continue Aspirin, statin and Eliquis.PT/OT and speech evaluation.Supportive care.Neurology to follow. Thanks for the consult.05/31 stable; no evidence for new wjctza18/2 review of MRI shows moderate to large area of encephalomalacia in Left superior fromtalarea + what appears to be a meningioma just posterior to this. Concern is that of seizure with postictal confusion. Will add depakote and follow as outpatient in view of difficulty of obtainingEEG on the weekend. at 1914 RPT #: [id number] OF REPORT PRProgress [id number]:41:00L.[id number] able for patient mminTEQHUEXRJQHGFC3204-11-82C88:14:55 [facility] 2022-06-01 09:47:00 [id number] jmzhIf/dEEwSGgRP3+WPFz3o0uBU4 mZYpHHDOr4LTSa1Z1B40BjFPwNl9183-26-98Y04:47:00 [facility] ([facility])Hospitalist Progress NoteREPORT#:[id number] REPORT STATUS: SignedDATE:06/01/22 TIME:0947 PATIENT: FRAN SANTAMARIA UNIT #: [id number]#: [id number] [address]ZIA: [address] AGE: 71 SEX: M ATTEND: Cheikh Gutierrez [facility] AUTHOR: Anneliese Eden MD * ALL edits or amendments must be made on the electronic/computer document * SubjectiveChief complaint:stableHPI:71-year-old male with PMHx of massive CVA x5 (per patient), hypertension, atrialfibrillation, diabetes mellitus, coronary artery disease, status post stent placement presented to the ED for altered mental status. Of note, it was unclear when the patient was last seen at his normal baseline mental status. The staff at his nursing facility noticed that he had repetitive speech today. In the ED, his NIH score was reported as 0. Head CT and CTA no acute findings or significant stenosis. He was not a candidate for tPA or endovascular therapydue to the time of onset of his symptoms and because the patient is on Eliquis. EKG showed A-fib with HR 77. UA negative for UTI. Found elevated troponin. Vitals stable. Upon my evaluation patient is alert, orientated x4, appearing hismentation back to at his baseline. He is a good historian. Denies dizziness, chest pain, shortness of breath, abdominal pain, or nausea vomiting. Patient isincontinence. Patient just wants to be changed. Noted involuntary jerking movement of the left upper extremity. Patient states he usually has low BP. BP nl during ED stay. He is admitted for further evaluation and management. Objective Physical ExamGeneral appearance: awakeHead/Eyes: atraumatic, normal conjunctiva/sclera, normal eyelids/periorb., normocephalic, PERRLENT: moist mucosal membranesNeck: full range of motion, normal thyroid, supple/no meningismus, no JVD, no masses or swellingCardiovascular: normal capillary refill, normal heart sounds, regular rate rhythmRespiratory: aerating well, clear to auscultation, symmetric expansion, no distressAbdomen: non-tender, normal bowel sounds, soft, no distentionGenitourinary: urine, no flank painExtremities: normal capillary refill, no cyanosis, no edemaMusculoskeletal: normal inspectionNeuro/OPAL MINER: right hemiparesis, alert, oriented X 3, normal speech, no sensory deficitsSkin: normal color, normal temperatureLymphatics: neck normal, no lymphadenopathyPsychiatry: normal affect ResultsFindings/Data:Laboratory Tests 06/01 05/31 05/31 0748 2058 1638 [...] (Auto) (20.5 - 51.1 %) 13.6 L Bailey % (Auto) (1.7 - 9.3 %) 10.9 H Eos % (Auto) (0.0 - 6.0 %) 6.3 H Baso % (Auto) (0.0 - 2.0 %) 0.7 Neut # (Auto) (1.8 - 7.6 K/mm3) 4.0 Lymph # (Auto) (0.6 - 3.0 K/mm3) 0.8 Bailey # (Auto) (0.2 - 1.5 K/mm3) 0.6 Eos # (Auto) (0.0 - 0.4 K/mm3) 0.4 Baso # (Auto) (0.0 - 0.2 K/mm3) 0.0 Abs Immat Gran (auto) (0.00 - 0.03 x10 3/uL) 0.04 H Add Manual Diff (CRITERIA DIFF/SCN) NO Immature Gran % (0.0 - 5.0 %) 0.7 Nucleated RBC % (0.0 - 1.0 /100WBC%) 0.0 Diagnosis, Assessment PlanConsultants: cardiology Free Text DxA P NotesFree text DxA P notes:71 yo male with PMHX of multiple CVAx5, CAD, HTN, DM2 admitted for 1. Acute metabolic encephalopathy-Baseline dementia-resolved and back to baseline, MRI brain shows no acute process appearing back to his baseline no obvious convincing metabolic or neurologic etiology head CT/CTA no significant acute abnormality neuro check 2. Elevated troponin-type II TN trend troponin x3, EKG x3 Monitor on the telemetry pt is on Eliquis for A-fib 3. Hyponatremia unknown etiology Resolved with IVF, BS control, repeat bmp home med HCTZ 5. Atrial fibrillation continue Eliquis not on BB HR controlled 6. DM2 ACHS SSI VTE ppx: on EliquisFull code Work-up negative, symptoms resolved, back to baseline Discussed with Daughter and [facility] - [facility] 0949 RPT #: [id number] OF REPORT PRProgress yyuh4137-03-03S35:47:00L.[id number] able for patient obxzYAADOSCMQCWNZB1738-65-48H54:49:35 [facility] 2022-06-01 08:41:00 [id number] c7x/o3L476KKsX/vcIr3NQ9CoqhYK JK+TSDoddHCtAQB7w0L9zkvx9Dq7488-17-99S12:41:[address] [facility] [place], TXCardiology Progress NoteREPORT#:[id number] REPORT STATUS: SignedDATE:06/01/22 TIME:0841 PATIENT: FRAN SANTAMARIA UNIT #: [id number]#: [id number] [address] AGE: 71 SEX: M ATTEND: Cheikh Gutierrez [facility] AUTHOR: Sammie Johnson APRN * ALL edits or amendments must be made on the electronic/computer document * Subjective Free Text Subj NotesFree Text Subj Notes:Cardiology progress note Date of service: 06/01/2022hief complaint/reason for consult: Elevated troponinPatient seen and examined, chart reviewed, questions/concerns addressed with RN.Current medication and vitals reviewed and listed above HPI and interval Hx: NAD. No acute events reported overnight. Remains in rate controlled A. fib. BP stable Admission HPI: 1 YO male chronically ill-looking male, appear confused, hx provided by [facility]. The patient has PMH of CVA, AFib on Eliquis, CAD with prior PCI who presented to ED with abnormal speech. Initial Head imaging negative for acute IC finding. Troponin came back elevated and cardiology consultation is requested. Troponin: 160.5->223.5. EKG showed atrial fibrillation with controlled rate, no acute ST/T wave changes. The patient denies chest pain or SOB. [facility]/sister Ayla Ace phone [phone]. Subjective: Denies any chest pain or shortness of breath Objective:Vital Signs: Date Time Temp Pulse Resp B/P B/P Pulse O2 O2 Flow FiO2 Mean Ox Delivery Rate 06/01 0749 98.1 63 18 110/60 76.6 96 06/01 0415 98.6 82 17 134/66 88.6 98 05/31 2343 97.5 68 17 135/57 82.7 98 Vital signs as abovePhysical examination:GEN: chronically ill appearing, frail, alert, awake, no acute distress, pleasantHEENT: NC/AT, EOMICARD: iRRR, normal S1/S2,+ murmurLUNGS: CTA w/o added sounds, GBAE.ABD: Soft, nondistended, nontender. Intact BSEXT: No obvious deformities. No edema. Peripheral pulses intactNEURO: AOx2-3, decreased ROMSKIN: Warm and dry, no rashes/lesions.PSYCH: Appropriate mood and affect Laboratory Tests: 06/01 05/31 05/31 0748 2058 1638 Chemistry POC Glucose (70 - 110 mg/dL) 149 H 190 H 173 H Echocardiogram Result:Conclusions Summary: 1. Left ventricle: The cavity size is dilated. Wall thickness is normal. Systolic function is mildly reduced. The estimated ejection fraction is 45-49%.2. Right ventricle: The RV pressure during systole by Doppler is 34 mm Hg. Prepared and electronically signed by Sarah Chavez MD05/30/2022 17:35 PATIENT NAME: FRAN SANTAMARIA >>>>>>>>>>>>>>>>>>>>>>>>>>>>>>>> END OF PAGE <<<<<<<<<<<<<<<<<<<<<<<<<<<<<<<< Assessment, Impression and medical decision making. Plan/recommendation:EKG Interpretation: atrial fibrillation Diagnosis, Assessment Plan Free Text DxA P NotesFree Text DxA P Notes:71 YO male chronically ill-looking male, appear confused, [facility]. The patient has PMH of CVA, AFib on Eliquis, CAD with prior PCI who presented to ED with abnormal speech. Initial Head imaging negative for acute IC finding. Troponin came back elevated and cardiology consultation is requested. Troponin: 160.5->223.5. EKG showed atrial fibrillation with controlled rate, no acute ST/T wave changes. The patient denies chest pain or SOB. 1. Chronc atrial fibrillation - rate controlcontinue metoprololDC heparin gtt, resume Eliquis 5 mg BIDechocardiogram LVEF 45-49%, no signficant valvular disease 2. Positive troponin - likely Type II MIKnown CAD with prior stentleaning toward Type II TN in the setting of possible TIA or ?UTI Troponin: 160.5->223.5->100.1->61.6DC heparin gtt, continue ASA 81 mg daily, atorvastatin 40 mg daily, metoprolol 25 mg BIDechocardiogram LVEF 45-49%telemetryoutpatient stresst test 3. Speech disturbance ? TIA, ?encephalopathy, ? Dementianeurology consulted 4. UA positive for bacteriuriamanage per primary team 5. Hx of CVA 6. Hypertensioncontinue low dose ACEI and BB 7. LV Systolic dysfunctionLVEF 45-49%continue BB change to metoprolol succinate 25 mg daily, add lisinopril 2.5 mg daily Stop amlodipine CHARLIEA/sister Ayla Ace phone [phone]. No further cardiac workup. Outpatient follow-up with Dr. Chavez in 2 weeks. at 1232 06/01/2022 NAD. No acute events reported overnight. Remains in rate controlled A. fib. BP stable. -Continue metoprolol for rate control, lisinopril for additional BP control-Continue Eliquis/apixaban for embolic event prevention-Continue with above recommendations: Cardiology clinic follow-up for outpatientstress test-Will follow Thank you for your consultation and allowing us to take the care of your patientplease do not hesitate to contact us with any questions or concerns. Sammie Johnson [facility]LY [facility] CHILD SUPPORT SPECIALIST Dr. Sarah Chavez MD-Attending CardiologistSWestern State Hospital Cardiology at 1120 at 1821 RPT #: [id number] OF REPORT PRProgress [id number]:41:00L.[id number] able for patient zlrrZDAOFPHOGAKQSQ9355-99-17V00:21:07 [facility] 2022-05-31 15:33:00 [id number]+/v9E/H 02kruBSY/UuAsD9tVlV1jxGyBvyiD i1zY7VKH7f8c7XVvg0kXWQz1rbi3070-77-97I17:33:00 [facility])Neurology Progress NoteREPORT#:[id number] REPORT STATUS: SignedDATE:05/31/22 TIME:1533 PATIENT: FRAN SANTAMARIA UNIT #: [id number]#: [id number] [address] AGE: 71 SEX: M ATTEND: Cheikh Gutierrez [facility] AUTHOR: Ramsey Marrero MD * ALL edits or amendments must be made on the electronic/computer document * SubjectivePatient reports:Yes: feeling better. Objective GeneralVS:Last Documented: Result Date Time Pulse Ox 97 05/31 1201 B/P 107/62 05/31 1201 B/P Mean 76.7 05/31 120 O2 Delivery Room air 05/31 120 Temp 36.3 05/31 120 Pulse 63 05/31 120 Resp 16 05/31 120 PATIENT WEIGHT: Weight (lb): Weight (oz): Weight (kg): 71.400 MedicationsCurrent Home MedicationsCITALOPRAM (CeleXA) 10 MG PO DAILY HYDROCHLOROTHIAZIDE (HCTZ) [...] BID KETOCONAZOLE (NIZORAL 2%) 1 APPLIC TOPICAL MOWEFR KETOCONAZOLE (NIZORAL 2%) 1 APPLIC TOPICAL DAILY traZODone (DESYREL) 150 MG PO BEDTIME PRN INSOMNIA OMEGA-3 FATTY ACIDS (FISH OIL) 1,000 MG PO DAILY DOCUSATE SODIUM (COLACE) 100 MG PO Q12H PRN PRN CONSTIPATION FLUTICASONE PROPIONATE (FLONASE 50 MCG/ACT NASAL) 1 SPRAY NASAL BID FAMOTIDINE (PEPCID) 20 MG PO BID METOPROLOL SUCC XL (TOPROL XL) 25 MG PO DAILY Active Meds + DC'd Last 24 HrsLisinopril (ZESTRIL) 2.5 MG DAILY PO Metoprolol Succinate [...] Metoprolol Tartrate (LOPRESSOR) 25 MG Q12HR PO (DC) Aspirin (ECOTRIN) 81 MG DAILY PO Amlodipine Besylate (NORVASC) 10 MG DAILY PO (DC) Citalopram Hydrobromide (CeleXA) 10 MG DAILY PO Finasteride (PROSCAR) 5 MG DAILY PO Ketoconazole (Nizoral 2% Shampoo 120 ML) 1 APPLIC DAILY TOPICAL Oxybutynin Chloride (DITROPAN) 5 MG BID PO Tamsulosin HCl (FLOMAX) 0.8 MG DAILY PO Albumin Human (OPTISON) 3 ML ONCE PRN IV Insulin Human Lispro (HUMALOG) S/SCALE LOW AC HS SUBQ Heparin Sodium/Dextrose (Heparin 25,000 Unit/500 ML D5W) 500 ML ASDIR IV (DC) Dextrose/Water (Dextrose 50% W SYRINGE) 50 ML ASDIR PRN IV (CKD) Docusate Sodium (COLACE) 100 MG Q12H PRN PRN PO Trazodone HCl (DESYREL) 150 MG BEDTIME PRN PO Sodium Chloride (0.9% Sodium Chloride) 1,000 ML .Q10H IV (DC) Physical ExamGeneral appearance: alert, awake Mental StatusOrientation:Yes: to time, to place. No: to person, to situation. ReflexesPlantar reflexes:Up: Right. Down: Left. ResultsFindings/Data:Laboratory Tests 05/31 05/30 05/30 0430 1730 1635 Chemistry POC Glucose (70 - 110 mg/dL) 188 H Troponin I High Sens (0 - 54 ng/L) 61.6 H 100.1 H Laboratory Tests 05/31 05/30 05/30 0701 2239 2239 Coagulation INR (0.8 - 1.2 INR Unit) 1.12 PTT (Braxton) (26 - 35 SECONDS) 84.9 H 37.0 H PT Patient/Control Mix (9.3 - 12.9 SECONDS) 12.8 Laboratory Tests 05/31 0430 Hematology WBC (3.5 [...] (Auto) (20.5 - 51.1 %) 14.4 L Bailey % (Auto) (1.7 - 9.3 %) 9.1 Eos % (Auto) (0.0 - 6.0 %) 7.1 H Baso % (Auto) (0.0 - 2.0 %) 0.8 Neut # (Auto) (1.8 - 7.6 K/mm3) 4.0 Lymph # (Auto) (0.6 - 3.0 K/mm3) 0.9 Bailey # (Auto) (0.2 - 1.5 K/mm3) 0.5 Eos # (Auto) (0.0 - 0.4 K/mm3) 0.4 Baso # (Auto) (0.0 - 0.2 K/mm3) 0.1 Abs Immat Gran (auto) (0.00 - 0.03 x10 3/uL) 0.06 H Add Manual Diff (CRITERIA DIFF/SCN) NO Immature Gran % (0.0 - 5.0 %) 1.0 Nucleated RBC % (0.0 - 1.0 /100WBC%) 0.0 Results: labs reviewed, vital signs reviewed, current med profile rev'd Diagnosis, Assessment PlanFree Text A P:71 years old male who is being evaluated for altered mental status. CT of the brain - No evidence of acute pathology. Senescent changes. Left frontal encephalomalacia unchanged. CTA head and neck - Scattered atherosclerotic plaque with mild less than 50% narrowingat the left carotid bifurcation. No other area of significant stenosis. No intracranial large vessel occlusion. Hemoglobin A1c 6.0, LDL 43 Diagnoses:1. Acute encephalopathy - etiology under investigation on baseline dementia2. History of chronic infarcts3. Atrial fibrillation4. Diabetes mellitus5. Dementia6. CAD7. History of tobacco use8. Generalized rash Plan:Telemetry.Reviewed CT of the brain.Reviewed CTA head and neck.MRI of the brain - pending.Echo - pending.Continue Aspirin, statin and Eliquis.PT/OT and speech evaluation.Supportive care.Neurology to follow. Thanks for the consult.05/31 stable; no evidence for new stroke at 1744 RPT #: [id number] OF REPORT PRProgress [id number]:33:00L.[id number] able for patient lrqjDWTKMCDZBWDKWA3415-66-54H76:45:07 [facility] 2022-05-31 14:55:00 [id number] RsuIFIJ4Rao+B664Yw3eDVNnzKNun ytBdurfet3n+X7sRc2CC6Dbc5xy4338-81-11N10:55:00 [facility] ([facility])Hospitalist Progress NoteREPORT#:[id number] REPORT STATUS: SignedDATE:05/31/22 TIME:1455 PATIENT: FRAN SANTAMARIA UNIT #: [id number]#: [id number] [facility] AGE: 71 SEX: M ATTEND: Cheikh Gutierrez AUTHOR: Anneliese Eden MD * ALL edits or amendments must be made on the electronic/computer document * SubjectiveChief complaint:stableHPI:71-year-old male with PMHx of massive CVA x5 (per patient), hypertension, atrialfibrillation, diabetes mellitus, coronary artery disease, status post stent placement presented to the ED for altered mental status. Of note, it was unclear when the patient was last seen at his normal baseline mental status. The staff at his nursing facility noticed that he had repetitive speech today. In the ED, his NIH score was reported as 0. Head CT and CTA no acute findings or significant stenosis. He was not a candidate for tPA or endovascular therapydue to the time of onset of his symptoms and because the patient is on Eliquis. EKG showed A-fib with HR 77. UA negative for UTI. Found elevated troponin. Vitals stable. Upon my evaluation patient is alert, orientated x4, appearing hismentation back to at his baseline. He is a good historian. Denies dizziness, chest pain, shortness of breath, abdominal pain, or nausea vomiting. Patient isincontinence. Patient just wants to be changed. Noted involuntary jerking movement of the left upper extremity. Patient states he usually has low BP. BP nl during ED stay. He is admitted for further evaluation and management. Objective GeneralVS/I O:Vital Signs: Date Time Temp Pulse Resp B/P B/P Pulse O2 O2 Flow FiO2 Mean Ox Delivery Rate 05/31 1201 97.3 63 16 107/62 76.7 97 Room air 05/31 0723 98.2 58 15 101/52 68.1 97 Room [...] (lb): Weight (oz): Weight (kg): 71.400 Physical ExamGeneral appearance: awakeHead/Eyes: atraumatic, normal conjunctiva/sclera, normal eyelids/periorb., normocephalic, PERRLENT: moist mucosal membranesNeck: full range of motion, normal thyroid, supple/no meningismus, no JVD, no masses or swellingCardiovascular: normal capillary refill, normal heart sounds, regular rate rhythmRespiratory: aerating well, clear to auscultation, symmetric expansion, no distressAbdomen: non-tender, normal bowel sounds, soft, no distentionGenitourinary: urine, no flank painExtremities: normal capillary refill, no cyanosis, no edemaMusculoskeletal: normal inspectionNeuro/OPAL MINER: right hemiparesis, alert, oriented X 3, normal speech, no sensory deficitsSkin: normal color, normal temperatureLymphatics: neck normal, no lymphadenopathyPsychiatry: normal affect ResultsFindings/Data:Laboratory Tests 05/31 05/30 05/30 0430 1730 1635 Chemistry POC Glucose (70 - 110 mg/dL) 188 H Troponin I High Sens (0 - 54 ng/L) 61.6 H 100.1 H Laboratory Tests 05/31 05/30 05/30 0701 2239 2239 Coagulation INR (0.8 - 1.2 INR Unit) 1.12 PTT (Braxton) (26 - 35 SECONDS) 84.9 H 37.0 H PT Patient/Control Mix (9.3 - 12.9 SECONDS) 12.8 Laboratory Tests 05/31 043 Hematology WBC (3.5 [...] (Auto) (20.5 - 51.1 %) 14.4 L Bailey % (Auto) (1.7 - 9.3 %) 9.1 Eos % (Auto) (0.0 - 6.0 %) 7.1 H Baso % (Auto) (0.0 - 2.0 %) 0.8 Neut # (Auto) (1.8 - 7.6 K/mm3) 4.0 Lymph # (Auto) (0.6 - 3.0 K/mm3) 0.9 Bailey # (Auto) (0.2 - 1.5 K/mm3) 0.5 Eos # (Auto) (0.0 - 0.4 K/mm3) 0.4 Baso # (Auto) (0.0 - 0.2 K/mm3) 0.1 Abs Immat Gran (auto) (0.00 - 0.03 x10 3/uL) 0.06 H Add Manual Diff (CRITERIA DIFF/SCN) NO Immature Gran % (0.0 - 5.0 %) 1.0 Nucleated RBC % (0.0 - 1.0 /100WBC%) 0.0 Diagnosis, Assessment PlanConsultants: cardiology Free Text DxA P NotesFree text DxA P notes:71 yo male with PMHX of multiple CVAx5, CAD, HTN, DM2 admitted for 1. Acute metabolic encephalopathy-Baseline dementia-resolved and back to baseline, MRI brain shows no acute process appearing back to his baseline no obvious convincing metabolic or neurologic etiology head CT/CTA no significant acute abnormality neuro check 2. Elevated troponin-type II TN trend troponin x3, EKG x3 Monitor on the telemetry pt is on Eliquis for A-fib 3. Hyponatremia unknown etiology Resolved with IVF, BS control, repeat bmp home med HCTZ 5. Atrial fibrillation continue Eliquis not on BB HR controlled 6. DM2 ACHS SSI VTE ppx: on EliquisFull code Work-up negative, symptoms resolved, back to baseline Discussed with Daughter and [facility]s [facility] RPT #: [id number] OF REPORT PRProgress htdq0330-07-67B76:55:00L.[id number] able for patient fnaiVONYUPHHKFDAWC8976-31-75R12:58:26 [facility] 2022-05-31 10:46:00 [id number] e89c+/hcr7h6d8L+pojz4KSi3LNuv Kui5GCz9/m6REoXIeIZcLN7IxC86869-09-94F39:46:00 [facility])Discharge SummaryREPORT#:[id number] REPORT STATUS: SignedDATE:05/31/22 TIME:1046 PATIENT: FRAN SANTAMARIA UNIT #: [id number]#: [id number] [address]QDO: [address] AGE: 71 SEX: M ATTEND: Cheikh Gutierrez [facility] AUTHOR: Anneliese Eden MD * ALL edits or amendments must be made on the electronic/computer document * See AddendumGeneral InformationDate of admission:Observation Start Date: Date of admission: 05/30/22 Discharge date: 05/31/22Discharge diagnosis:71 yo male with PMHX of multiple CVAx5, CAD, HTN, DM2 admitted for 1. Acute metabolic encephalopathy-Baseline dementia-resolved and back to baseline, MRI brain shows no acute process appearing back to his baseline no obvious convincing metabolic or neurologic etiology head CT/CTA no significant acute abnormality neuro check 2. Elevated troponin-type II TN trend troponin x3, EKG x3 Monitor on the telemetry pt is on Eliquis for A-fib 3. Hyponatremia unknown etiology Resolved with IVF, BS control, repeat bmp home med HCTZ 5. Atrial fibrillation continue Eliquis not on BB HR controlled 6. DM2 ACHS SSI VTE ppx: on EliquisFull code Work-up negative, symptoms resolved, back to baseline, will DC home with home healthHospital course:71 yo male with PMHX of multiple CVAx5, CAD, HTN, DM2 admitted for 1. Acute metabolic encephalopathy-Baseline dementia-resolved and back to baseline, MRI brain shows no acute process appearing back to his baseline no obvious convincing metabolic or neurologic etiology head CT/CTA no significant acute abnormality neuro check 2. Elevated troponin-type II TN trend troponin x3, EKG x3 Monitor on the telemetry pt is on Eliquis for A-fib 3. Hyponatremia unknown etiology Resolved with IVF, BS control, repeat bmp home med HCTZ 5. Atrial fibrillation continue Eliquis not on BB HR controlled 6. DM2 ACHS SSI VTE ppx: on EliquisFull code Work-up negative, symptoms resolved, back to baseline, will DC home with home healthConsultants: cardiologyPt. condition on discharge: improved, stable Med Rec Med RecDischarge meds:Stop taking the following medications:amLODIPine (NORVASC) 10 MG TAB 10 MILLIGRAM ORAL DAILY. Continue taking these medications:CITALOPRAM (CeleXA) 10 MG TAB 10 MILLIGRAM ORAL [...] 150 MILLIGRAM ORAL BEDTIME. as needed for INSOMNIA OMEGA-3 FATTY ACIDS (FISH OIL) 1,000 MG CAP 1,000 MILLIGRAM ORAL DAILY. FLUTICASONE PROPIONATE (FLONASE 50 MCG/ACT NASAL) 16 GM SPRAY 1 SPRAY NASAL TWICE DAILY. Days = 30 DOCUSATE SODIUM (COLACE) 100 MG CAP 100 MILLIGRAM ORAL EVERY 12 HR NEEDED. as needed for CONSTIPATION Days = 30 FAMOTIDINE (PEPCID) 20 MG TAB 20 MILLIGRAM ORAL TWICE DAILY. Days = 30 Start taking the following new medications:METOPROLOL SUCC XL (TOPROL XL) 25 MG TAB.SR.24H 25 MILLIGRAM ORAL DAILY. Qty = 30 No Refills ObjectiveVS/I OLast Documented: Result Date Time Pulse Ox 97 05/31 723 B/P 101/52 05/31 723 B/P Mean 68.1 05/31 723 O2 Delivery Room air 05/31 723 Temp 98.2 05/31 723 Pulse 58 05/31 723 Resp 15 05/31 723 24 hour I O ending at 0700: 05/31 1900 Intake Total 1080.00 Output Total Balance 1080.00 Intake, IV 180.00 Intake, Oral 900 Number 1 Bowel Movements Number 4 Incontinent Voids PATIENT WEIGHT: Weight (lb): Weight (oz): Weight (kg): 71.400 General appearance: awakeENT: normal noseCardiovascular: normal heart soundsGI: softMusculoskeletal: full range of motionNeuro/OPAL MINER: alert, no motor deficits Discharge Instructions PCPPCP:PCP: No Primary or Family Physician )( Discharge to: Home/Self Care Discharge InstructionsAdditional Discharge Routines: PCP Follow-Up)( Diet: Regular)( Activity: As ToleratedPrescriptions: on chartDischarge management: greater than 30 mins Follow-up AppointmentsPCP follow up: PCP: No Primary or Family Physician PCP follow up timeframe: In 1-2 weeks at 1049 Addendum 1: 06/09/22 1238 by Anneliese Eden MD Patient is going to personal half-way, stable condition, total time 32 minutes at 1238 Addendum 2: 06/11/22 1109 by Anneliese Eden MD Patient is stable to be discharged today at 1109 RPT #: [id number] OF REPORT DSDischarge addwbql9048-81-07B65:46:00L.[id number] ailable for patient vxffOXYXARFIZAGQRC1702-44-93G49:49:57 [facility] 2022-05-31 09:04:00 [id number] PrQTh5+w5XfkzJPe6OVIhKmmz/MJF 6SRQh+VF6miFT5EpZqQCkQV68z52506-13-14H33:04:00 [facility])Cardiology Progress NoteREPORT#:[id number] REPORT STATUS: SignedDATE:05/31/22 TIME:0904 PATIENT: FRAN SANTAMARIA UNIT #: [id number]#: [id number] ROOM/BED: [id number]: 50 AGE: 71 SEX: M ATTEND: Cheikh Gutierrez MDA AUTHOR: Sheree Junior * ALL edits or amendments must be made on the electronic/computer document * SubjectiveChief complaint:confused, not in any distress Objective GeneralVS/I O:24 hour I O ending at 0700: 05/31 0700 05/30 1900 Intake Total 1080.00 Output Total Balance 1080.00 Intake, IV 180.00 Intake, Oral 900 Number 1 Bowel Movements Number 4 Incontinent Voids Vital Signs: Date Time Temp Pulse Resp B/P B/P Pulse O2 O2 Flow FiO2 Mean Ox Delivery Rate 05/31 723 36.8 58 15 101/52 68.1 97 Room air 05/30 1945 36.6 86 16 155/73 100.6 97 05/30 1651 36.6 82 15 133/82 99 100 Room air 05/30 1220 36.4 84 16 115/88 97 100 Room air PATIENT WEIGHT: Weight (lb): Weight (oz): Weight (kg): 71.400 Medications:Active Meds + DC'd Last 24 HrsHaloperidol Lactate (HALDOL) 2 MG ONCE IV (DC) Atorvastatin Calcium (LIPITOR) 40 MG BEDTIME PO Metoprolol Tartrate (LOPRESSOR) 25 MG Q12HR PO Aspirin (ECOTRIN) 81 MG DAILY PO Amlodipine Besylate (NORVASC) 10 MG DAILY PO Citalopram Hydrobromide (CeleXA) 10 MG DAILY PO Finasteride (PROSCAR) 5 MG DAILY PO Ketoconazole (Nizoral 2% Shampoo 120 ML) 1 APPLIC DAILY TOPICAL Oxybutynin Chloride (DITROPAN) 5 MG BID PO Tamsulosin HCl (FLOMAX) 0.8 MG DAILY PO Albumin Human (OPTISON) 3 ML ONCE PRN IV Insulin Human Lispro (HUMALOG) S/SCALE LOW AC HS SUBQ Heparin Sodium/Dextrose (Heparin 25,000 Unit/500 ML D5W) 500 ML ASDIR IV (CKD) Dextrose/Water (Dextrose 50% W SYRINGE) 50 ML ASDIR PRN IV (CKD) Docusate Sodium (COLACE) 100 MG Q12H PRN PRN PO Trazodone HCl (DESYREL) 150 MG BEDTIME PRN PO Sodium Chloride (0.9% Sodium Chloride) 1,000 ML .Q10H IV Physical ExamGeneral appearance: chronically ill appearing, frail, alert, awake, no acute distress, pleasantNeck: non-tender, no JVDCardiovascular: CV assessment: irregularly irregular Murmur assessment:heart murmurRespiratory: decreased breath sounds, no distressAbdomen: soft, non-tender, normal bowel sounds, no distentionGenitourinary: no flank pain, no urinary catheterLower extremity: LE assessment: no calf tenderness, no edemaMusculoskeletal: decreased ROMNeuro/OPAL MINER: alert (confused)Skin: poor skin turgorPsychiatry: abnl judgment/insight, normal mood ResultsFindings/Data:Laboratory Tests 05/31 05/30 05/30 05/30 0430 1730 1635 1155 Chemistry POC Glucose (70 - 110 mg/dL) 188 H 103 Troponin I High Sens (0 - 54 ng/L) 61.6 H 100.1 H Laboratory Tests 05/31 05/30 05/30 05/30 0701 2239 2239 1255 Coagulation INR (0.8 - 1.2 INR Unit) 1.12 PTT (Braxton) (26 - 35 SECONDS) 84.9 H 37.0 H 79.4 H PT Patient/Control Mix (9.3 - 12.9 SECONDS) 12.8 Laboratory Tests 05/31 0430 Hematology WBC (3.5 [...] (Auto) (20.5 - 51.1 %) 14.4 L Bailey % (Auto) (1.7 - 9.3 %) 9.1 Eos % (Auto) (0.0 - 6.0 %) 7.1 H Baso % (Auto) (0.0 - 2.0 %) 0.8 Neut # (Auto) (1.8 - 7.6 K/mm3) 4.0 Lymph # (Auto) (0.6 - 3.0 K/mm3) 0.9 Bailey # (Auto) (0.2 - 1.5 K/mm3) 0.5 Eos # (Auto) (0.0 - 0.4 K/mm3) 0.4 Baso # (Auto) (0.0 - 0.2 K/mm3) 0.1 Abs Immat Gran (auto) (0.00 - 0.03 x10 3/uL) 0.06 H Add Manual Diff (CRITERIA DIFF/SCN) NO Immature Gran % (0.0 - 5.0 %) 1.0 Nucleated RBC % (0.0 - 1.0 /100WBC%) 0.0 Radiology data:Recent Impressions:MAGNETIC RESONANCE IMAGING - MRI BRAIN W/O CONTRAST 05/30 1405 Report Impression - Status: SIGNED Entered: 05/30/2022 1525 IMPRESSION: No evidence of acute infarct or hemorrhage. Moderate cerebral volumeloss. Left frontoparietal convexity meningioma again noted. Left frontallobe encephalomalacia with suspect crossed cerebellar diaschisisnoted. Impression By: [email or web address] Zahira Vincent D.O. Results: labs reviewedTelemetry Interpretation:afib with controlled rateEcho results: Summary: 1. Left ventricle: The cavity size is dilated. Wall thickness is normal. Systolic function is mildly reduced. The estimated ejection fraction is 45-49%.2. Right ventricle: The RV pressure during systole by Doppler is 34 mm Hg. Diagnosis, Assessment Plan Free Text DxA P NotesFree Text DxA P Notes:71 YO male chronically ill-looking male, appear confused, hx provided by MPOA. The patient has PMH of CVA, AFib on Eliquis, CAD with prior PCI who presented to ED with abnormal speech. Initial Head imaging negative for acute IC finding. Troponin came back elevated and cardiology consultation is requested. Troponin: 160.5->223.5. EKG showed atrial fibrillation with controlled rate, no acute ST/T wave changes. The patient denies chest pain or SOB. 1. Chronc atrial fibrillation - rate controlcontinue metoprololDC heparin gtt, resume Eliquis 5 mg BIDechocardiogram LVEF 45-49%, no signficant valvular disease 2. Positive troponin - likely Type II MIKnown CAD with prior stentleaning toward Type II TN in the setting of possible TIA or ?UTI Troponin: 160.5->223.5->100.1->61.6DC heparin gtt, continue ASA 81 mg daily, atorvastatin 40 mg daily, metoprolol 25 mg BIDechocardiogram LVEF 45-49%telemetryoutpatient stresst test 3. Speech disturbance ? TIA, ?encephalopathy, ? Dementianeurology consulted 4. UA positive for bacteriuriamanage per primary team 5. Hx of CVA 6. Hypertensioncontinue low dose ACEI and BB 7. LV Systolic dysfunctionLVEF 45-49%continue BB change to metoprolol succinate 25 mg daily, add lisinopril 2.5 mg daily Stop amlodipine MPOA/sister Ayla Ace phone [phone]. No further cardiac workup. Outpatient follow-up with Dr. Chavez in 2 weeks. at 1232 at 1821 RPT #: [id number] OF REPORT PRProgress hfgg6695-94-84P73:04:00L.[id number] able for patient xskgFIDMWOVRXFHHTT3328-39-75L81:32:33 [facility] 2022-05-30 17:35:00 [id number] UckbVb/gDXmqrVl6hW535MBW9oQxW 6lVBTuopyX2PLSFQT2l1onqCHHH0712-88-29Y42:35:62704 0-0215 [facility] [address] [place] [address] PATIENT NAME: FRAN SANTAMARIA ADMIT DATE: 05/30/22ACCOUNT NO: [id number] ROOM NO: [facility] AGE: 71 REPORT TYPE: eECHOCARDIOGRAM REPORT SEX: M ADMITTING PHYSICIAN: Cheikh Gutierrez MD ATTENDING PHYSICIAN: Cheikh Gutierrez MD *[facility]*[address] [place], [place] [address]Brdey Transthoracic Echocardiogram Patient: Fran Santamaria LStudy Date: 05/30/2022 BP: 131 / 85 [id number] 1950 Age: 71 Height: 74 in / 188 cmAccession#: [id number] Gender: M Weight: 73 lb / 33.2 kgBMI/BSA: 9.4 kg/m 2 / 1.27 m 2 *Ordering Physician: * Eddi Hoff *Interpreting Physician: * Sarah Chavez MD*[employer] Casting Machine Setter: * Alice Slaughter Indications: NSTEMI. Study data: Transthoracic echocardiogram. Procedure: Transthoracicechocardiography was performed. Image quality was adequate. Rngybzxv2X, complete spectral Doppler, and color Doppler. Location: Emergencydepartment. Patient status: Inpatient. Patient room number: ER4.Study status: Routine. Findings Left ventricle: The cavity size is dilated. Wall thickness is normal.Systolic function is mildly reduced. The estimated ejection fraction is45-49%.Right ventricle: The cavity size is normal.Left atrium: The atrium is normal in size.Right atrium: The atrium is normal in size.Aorta: Aortic root: The aortic root is not visualized. PATIENT NAME: FRAN SANTAMARIA Aortic valve: The valve is structurally normal. The valve istrileaflet. There is no evidence of stenosis. There is noregurgitation.Mitral valve: The valve is structurally normal. There is trivialregurgitation.Tricuspid valve: The valve is structurally normal. There is mildregurgitation.Pulmonic valve: The valve is structurally normal. There is noregurgitation.Pericardium: There is no pericardial effusion.Pulmonary arteries:The main pulmonary artery is normal-sized.Systemic veins:Inferior vena cava: The vessel is normal in size. Measurements Left ventricle Value Ref MONA, LAX [...] 1.71 cm --------- PATIENT NAME: FRAN SANTAMARIA Peak v, S 1.35 m/sec --------- Mean [...] normal. Systolic function is mildly reduced. The estimated ejection fraction is 45-49%.2. Right ventricle: The RV pressure during systole by Doppler is 34 mm Hg. Prepared and electronically signed by Sarah Chavez MD05/30/2022 17:35 PATIENT NAME: FRAN SANTAMARIA at 1735 PATIENT NAME: FRAN SANTAMARIA :35:0 0L.[id number] for patient lpxwMWOYBOYVZKOZWL0931-99-66H64:36:02 [facility] 2022-05-30 12:01:00 [id number] imLawm6sB3wBKfsms9WK22mR9s/Dy UcZxg6r7cXPorVB6WLg6JFgT5qS1442-43-65Z08:01:00 [facility] ([facility])Neurology Consultation NoteREPORT#:[id number] REPORT STATUS: SignedDATE:05/30/22 TIME:1201 PATIENT: FRAN SANTAMARIA UNIT #: [id number]#: [id number] ROOM/BED: V866-7NKL: 50 AGE: 71 SEX: M ATTEND: Cheikh Gutierrez [facility] AUTHOR: Va Carroll RN PARALEGAL * ALL edits or amendments must be made on the electronic/computer document * Va Carroll 05/30/22 1201:History of Present Illness HPIReason for consult:altered mental statusHPI:He is a 71-year-old male with past left-handed male with past medical history ofhypertension, diabetes mellitus, CAD s/p stents, atrial fibrillation on Eliquis,history of multiple strokes with residual right-sided weakness, baseline gait impairment who was transferred from an assisted living facility to the hospital due to altered mental status. Patient is accompanied by his assistance byerhfs-xt-koy. Reportedly sister stated she noticed a change in him a week ago. He was behaving more confused, became more incontinent and this progressively got worse and she decided to bring him to the emergency room. Patient is alert and oriented x2-3. Denies any headaches, dizziness, vision changes, numbness or anyhallucinations. Patient quit smoking 25 years ago. Denies any history of alcohol use. Patient reports that has not been sleeping well at night. Patient's sister reports baseline memory impairment has been progressively getting worse. He is to follow-up with neurologist at the [facility]. He has not beenseen by the neurologist there in a few years. Patient reports that the last timehe waled was 6 l7kwzxm. History - Adult longitudinalPast medical history:Reports: Atrial fibrillation, Coronary artery disease, Hypertension, Ischemic stroke. Additional medical history:CVA, hypertension, atrial fibrillation, diabetes mellitus, coronary artery diseasePast surgical history:Reports: PCI. Family history:Reports: Diabetes. 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 Denies: dizziness, lightheaded, numbness, slurred speech. All systems rev neg: except as marked Objective GeneralVS:Last Documented: Result Date Time Pulse Ox 100 05/30 815 B/P 131/85 05/30 815 B/P Mean 100 05/30 815 O2 Delivery Room air 05/30 815 Temp 98.1 05/30 815 Pulse 80 05/30 815 Resp 16 05/30 815 PATIENT WEIGHT: Weight (lb): Weight (oz): Weight (kg): 71.400 MedicationsCurrent Home MedicationsCITALOPRAM (CeleXA) 10 MG PO DAILY HYDROCHLOROTHIAZIDE (HCTZ) [...] BID KETOCONAZOLE (NIZORAL 2%) 1 APPLIC TOPICAL MOWEFR KETOCONAZOLE (NIZORAL 2%) 1 APPLIC TOPICAL DAILY traZODone (DESYREL) 150 MG PO BEDTIME PRN INSOMNIA OMEGA-3 FATTY ACIDS (FISH OIL) 1,000 MG PO DAILY DOCUSATE SODIUM (COLACE) 100 MG PO Q12H PRN PRN CONSTIPATION FLUTICASONE PROPIONATE (FLONASE 50 MCG/ACT NASAL) 1 SPRAY NASAL BID FAMOTIDINE (PEPCID) 20 MG PO BID Active Meds + DC'd Last 24 HrsAtorvastatin Calcium (LIPITOR) 40 MG BEDTIME PO Heparin [...] Ketoconazole (Nizoral 2% Shampoo 120 ML) 1 APPLIC DAILY TOPICAL Oxybutynin Chloride (DITROPAN) 5 MG BID PO Tamsulosin HCl (FLOMAX) 0.8 MG DAILY PO Albumin Human (OPTISON) 3 ML ONCE PRN IV Insulin Human Lispro (HUMALOG) S/SCALE LOW AC HS SUBQ Heparin Sodium (Porcine) (HEPARIN SODIUM) 4,284 UNIT ONCE ONE IV (DC) Heparin Sodium/Dextrose (Heparin 25,000 Unit/500 ML D5W) 500 ML ASDIR IV (CKD) Dextrose/Water (Dextrose 50% W SYRINGE) 50 ML ASDIR PRN IV (CKD) Docusate Sodium (COLACE) 100 MG Q12H PRN PRN PO Trazodone HCl (DESYREL) 150 MG BEDTIME PRN PO Sodium Chloride (0.9% Sodium Chloride) 1,000 ML .Q10H IV Sodium Chloride (0.9% Sodium Chloride) 250 ML BOLUS ONCE ONE IV (DC) Aspirin (ASPIRIN CHEWABLE) 324 MG X1ED STA PO (DC) Iopamidol (ISOVUE-370) 0 .STK-MED ONE IV (DC) Physical ExamGeneral appearance: alert, awake, oriented, no acute distressNeck: no masses or swellingRespiratory: aerating well, no distressExtremities: moves allNeuro/OPAL MINER: altered mental status, alert, normal speech, EOMINeuro comment:Has multiple red rash all over body more in the lower extremities with some tracks SpeechSpeech: normal Mental StatusOrientation:Yes: to time, to place. No: to person, to situation. Mental status comments:She was oriented to the month, year and president Cranial NervesCranial nerves comments:PERRL, EOMI, no gaze deviatiion. right NL flattening Sensory ExamSensory comments:Decreased pinprick sensation in bilateral toes Motor TestingMotor testing comments:Normal strength throughout except, right leg with contraction, patient reports right knee pain Cerebellar TestCerebellar test:Normal R finger/nose/finger, Normal L finger/nose/fingerNystagmus: absent ReflexesPlantar reflexes:Up: Right. Down: Left. GaitGait comments:Deferred ResultsFindings/Data:Laboratory Tests 05/30 05/30 05/30 0754 0518 0518 Chemistry Sodium (134 - 147 mmol/L) 135 Potassium (3.4 - 5.0 mmol/L) 3.7 Chloride (100 - 108 mmol/L) 102 Carbon Dioxide (21 - 32 mmol/L) 27 Anion Gap (4.0 - 15.0 GAP calc) 6.0 BUN (7 - 18 MG/DL) 5 L Creatinine (0.8 - 1.3 MG/DL) 0.8 Glomerular Filtr Rate (>60 estGFR) >=60 max estimate Glucose (70 - 110 MG/DL) 123 H [...] Glomerular Filtr Rate (>60 estGFR) >=60 max estimate Glucose (70 - 110 MG/DL) 168 H Calcium (8.5 - 10.1 MG/DL) 9.9 Troponin I High Sens (0 - 54 ng/L) 223.5 *H 160.5 *H Laboratory Tests 05/30 05/29 0526 1442 Coagulation INR (0.8 - 1.2 INR Unit) 1.12 PTT (Benny) (26 - 35 SECONDS) 27.6 28.9 PT Patient/Control Mix (9.3 - 12.9 SECONDS) 12.8 Laboratory Tests 05/30 05/29 0526 1442 Hematology [...] - 51.1 %) 14.0 L 7.6 L Bailey % (Auto) (1.7 - 9.3 %) 12.2 H 9.4 H Eos % (Auto) (0.0 - 6.0 %) 9.6 H 1.2 Baso % (Auto) (0.0 - 2.0 %) 1.2 0.7 Neut # (Auto) (1.8 - 7.6 K/mm3) 4.1 6.9 Lymph # (Auto) (0.6 - 3.0 K/mm3) 0.9 0.7 Bailey # (Auto) (0.2 - 1.5 K/mm3) 0.8 0.8 Eos # (Auto) (0.0 - 0.4 K/mm3) 0.6 H 0.1 Baso # (Auto) (0.0 - 0.2 K/mm3) 0.1 0.1 Abs Immat Gran (auto) (0.00 - 0.03 x10 3/uL) 0.06 H 0.10 H Add Manual Diff (CRITERIA DIFF/SCN) NO NO Immature Gran % (0.0 - 5.0 %) 0.9 1.2 Nucleated RBC % (0.0 - 1.0 /100WBC%) 0.0 0.0 Laboratory Tests 05/29 1544 Urines Urine Color (YEL/STRAW discript) YELLOW Urine Appearance (CLEAR discript) HAZY H Urine pH (5.0 - 7.0 pH UNITS) 7.5 H Ur Specific [place] (1.005 - 1.030 SG) <=1.005 Urine Protein (NEG mg/dL) NEGATIVE Urine Glucose (UA) (NEG mg/dL) NEGATIVE Urine Ketones (NEG mg/dL) NEGATIVE Urine Blood (NEG mg/DL) 1+ H Urine Nitrite (NEG SCREEN) NEGATIVE Urine Bilirubin (NEG mg/dL) NEGATIVE Urine Urobilinogen (<2.0 mg/dL) 0.2 Ur Leukocyte Esterase (NEGATIVE Leuk/mcL) NEGATIVE Urine RBC (0 - 3 #RBC/HPF) 5-10 H Urine WBC (0 - 3 #WBC/HPF) 0-1 Ur Squamous Epith Cells (NONE /HPF) TRACE Urine Bacteria (NONE - TRACE /HPF) 1+ H Urine Mucus (NONE SEEN /LPF) TRACE Urine Culture Screen (Culture CHK Criteria) NO, WBC<10 Radiology Data:Recent Impressions:CAT SCAN - CT HEAD/BRAIN W/O CONT 05/29 1401 Report Impression - Status: SIGNED Entered: 05/29/2022 1446 Impression: 1. No evidence of acute pathology.2. Senescent changes.3. Left frontal encephalomalacia unchanged. Impression By: Tolu Silverman M.D.CAT SCAN - CT ANGIO NECK 05/29 1408 Report Impression - Status: SIGNED Entered: 05/29/2022 1451 IMPRESSION: 1. Scattered atherosclerotic plaque with mild less than 50% narrowingat the left carotid bifurcation. No other area of significantstenosis.2. No intracranial large vessel occlusion.Impression By: Homer - Olegario Griffith M.D.CAT SCAN - CT ANGIO HEAD 05/29 1408 Report Impression - Status: SIGNED Entered: 05/29/2022 1451 IMPRESSION: 1. Scattered atherosclerotic plaque with mild less than 50% narrowingat the left carotid bifurcation. No other area of significantstenosis.2. No intracranial large vessel occlusion.Impression By: Homer - Olegario Griffith M.D.RADIOLOGY - XR CHEST 1 V 05/29 1420 Report Impression - Status: SIGNED Entered: 05/29/2022 1447 IMPRESSION: 1. Stable chest. No focal consolidation.Impression By: Homer Griffith M.D. Results: labs reviewed, vital signs reviewed, current med profile rev'd Diagnosis, Assessment PlanFree Text DxA P Notes:71 years old male who is being evaluated for altered mental status. CT of the brain - No evidence of acute pathology. Senescent changes. Left frontal encephalomalacia unchanged. CTA head and neck - Scattered atherosclerotic plaque with mild less than 50% narrowingat the left carotid bifurcation. No other area of significant stenosis. No intracranial large vessel occlusion. Hemoglobin A1c 6.0, LDL 43 Diagnoses:1. Acute encephalopathy - etiology under investigation on baseline dementia2. History of chronic infarcts3. Atrial fibrillation4. Diabetes mellitus5. Dementia6. CAD7. History of tobacco use8. Generalized rash Plan:Telemetry.Reviewed CT of the brain.Reviewed CTA head and neck.MRI of the brain - pending.Echo - pending.Continue Aspirin, statin and Eliquis.PT/OT and speech evaluation.Supportive care.Neurology to follow. Thanks for the consult. at 1532 at 1554 RPT #: [id number] OF REPORT DMLvqkkualmcge0817-50-03Y71:01:00L.[id number] 128AVAvailable for patient dmahVSWXZOSUUHBUCE9431-74-00G07:33:28 [facility] 2022-05-30 10:51:00 [id number] MyQ36hpHiu9Jh6HRCVOASp2AXg5/f /IF9D0vWYFq//62m+sqm5BOzRXC5263-31-79T65:51:[address] [facility] [place], [place]Clinical NoteREPORT#:[id number] REPORT STATUS: SignedDATE:05/30/22 TIME:1051 PATIENT: FRAN SANTAMARIA UNIT #: [id number]#: [id number] [address] AGE: 71 SEX: M ATTEND: Cheikh Gutierrez [facility] AUTHOR: Eddi Hoff MD * ALL edits or amendments must be made on the electronic/computer document * Clinical NoteNote:Admitted sole tier for possible TIA/CVA.Patient has had multiple CVAs in the past might be underlying vascular dementia. Will get MRI brain. Neurology will be evaluating the patient.PT OT speech therapy.NSTEMI with history of coronary artery disease and A. fibTroponin did elevate we will get echocardiogram. Currently on heparin cardiology consulted if no intervention needed from cardiology might switch him back to Eliquis.DVT prophylaxisPatient is full code at 1053 RPT #: [id number] OF REPORT CLClinical gkgd1834-71-54Q42:51:00L.[id number] able for patient jtmzEPIGTROCRPNJGF7188-79-21H16:54:02 [facility] 2022-05-30 10:15:00 [id number] thFGadJKgSLSiCKGLDbkd8gqsziUV 3faH6McayTWaVd9GDei/IPLH4rP3556-21-89Y33:15:00 [facility] [place] [facility])Cardiology ConsultationREPORT#:[id number] REPORT STATUS: SignedDATE:05/30/22 TIME:1015 PATIENT: FRAN SANTAMARIA UNIT #: [id number]#: [id number] [facility] AGE: 71 SEX: M ATTEND: Cheikh Gutierrez MDA AUTHOR: Sheree Junior * ALL edits or amendments must be made on the electronic/computer document * History of Present Illness HPIRequesting Clinician: Dr. Noriega for consult:Elevated troponinChief complaint:speech abnormalityPCP:PCP: No Primary or Family Physician HPI:71 YO male chronically ill-looking male, appear confused, hx provided by [facility]. The patient has PMH of CVA, AFib on Eliquis, CAD with prior PCI who presented to ED with abnormal speech. Initial Head imaging negative for acute IC finding. Troponin came back elevated and cardiology consultation is requested. Troponin: 160.5->223.5. EKG showed atrial fibrillation with controlled rate, no acute ST/T wave changes. The patient denies chest pain or SOB. MPOA/sister Ayla Ace phone [phone]. History - Adult longitudinalPast medical history:Reports: Atrial fibrillation, Coronary artery disease, Hypertension, Ischemic stroke. Additional medical history:CVA, hypertension, atrial fibrillation, diabetes mellitus, coronary artery diseasePast surgical history:Reports: PCI. Family history:Reports: Diabetes. 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 Objective GeneralVS/I O:Vital Signs: Date Time Temp Pulse Resp B/P [...] Weight (lb): Weight (oz): Weight (kg): 71.400 Medications:Active Meds + DC'd Last 24 HrsAspirin (ECOTRIN) 81 MG DAILY PO (UNV) Atorvastatin Calcium (LIPITOR) 40 MG BEDTIME PO Metoprolol Tartrate (LOPRESSOR) 25 MG Q12HR PO (UNV) Heparin Sodium (Porcine) (HEPARIN SODIUM) LOOK AT NOTE BASED ON WEIGHT OF 71.4 K UNITS/KG = 5,000 UNITS (MAX REBOLUS) 40 UNITS/KG = 2,856 UNITS ASDIR PRN IV Amlodipine Besylate (NORVASC) 10 MG DAILY PO Apixaban (ELIQUIS) 5 MG BID PO (CAN) Citalopram Hydrobromide (CeleXA) 10 MG DAILY PO Finasteride (PROSCAR) 5 MG DAILY PO Ketoconazole (Nizoral 2% Shampoo 120 ML) 1 APPLIC DAILY TOPICAL Oxybutynin Chloride (DITROPAN) 5 MG BID PO Tamsulosin HCl (FLOMAX) 0.8 MG DAILY PO Albumin Human (OPTISON) 3 ML ONCE PRN IV Insulin Human Lispro (HUMALOG) S/SCALE LOW AC HS SUBQ Heparin Sodium (Porcine) (HEPARIN SODIUM) 4,284 UNIT ONCE ONE IV (DC) Heparin Sodium/Dextrose (Heparin 25,000 Unit/500 ML D5W) 500 ML ASDIR IV (CKD) Dextrose/Water (Dextrose 50% W SYRINGE) 50 ML ASDIR PRN IV (CKD) Docusate Sodium (COLACE) 100 MG Q12H PRN PRN PO Trazodone HCl (DESYREL) 150 MG BEDTIME PRN PO Sodium Chloride (0.9% Sodium Chloride) 1,000 ML .Q10H IV Sodium Chloride (0.9% Sodium Chloride) 250 ML BOLUS ONCE ONE IV (DC) Aspirin (ASPIRIN CHEWABLE) 324 MG X1ED STA PO (DC) Iopamidol (ISOVUE-370) 0 .STK-MED ONE IV (DC) Physical ExamGeneral appearance: chronically ill appearing, frail, alert, awake, no acute distress, conversational, no respiratory distressNeck: non-tender, no JVDCardiovascular: CV assessment: irregularly irregular Murmur assessment:heart murmurRespiratory: decreased breath sounds, no distressAbdomen: soft, non-tender, normal bowel sounds, no distentionGenitourinary: no flank pain, no urinary catheterLower extremity: LE assessment: no calf tenderness, no edemaMusculoskeletal: decreased ROMNeuro/OPAL MINER: alertSkin: poor skin turgorPsychiatry: abnl judgment/insight, normal mood ResultsFindings/Data:Laboratory Tests 05/30 05/30 05/30 0754 0518 0518 Chemistry Sodium (134 - 147 mmol/L) 135 Potassium (3.4 - 5.0 mmol/L) 3.7 Chloride (100 - 108 mmol/L) 102 Carbon Dioxide (21 - 32 mmol/L) 27 Anion Gap (4.0 - 15.0 GAP calc) 6.0 BUN (7 - 18 MG/DL) 5 L Creatinine (0.8 - 1.3 MG/DL) 0.8 Glomerular Filtr Rate (>60 estGFR) >=60 max estimate Glucose (70 - 110 MG/DL) 123 H [...] Glomerular Filtr Rate (>60 estGFR) >=60 max estimate Glucose (70 - 110 MG/DL) 168 H Calcium (8.5 - 10.1 MG/DL) 9.9 Troponin I High Sens (0 - 54 ng/L) 223.5 *H 160.5 *H Laboratory Tests 05/30 05/29 0526 1442 Coagulation INR (0.8 - 1.2 INR Unit) 1.12 PTT (Benny) (26 - 35 SECONDS) 27.6 28.9 PT Patient/Control Mix (9.3 - 12.9 SECONDS) 12.8 Laboratory Tests 05/30 05/29 0526 1442 Hematology [...] - 51.1 %) 14.0 L 7.6 L Bailey % (Auto) (1.7 - 9.3 %) 12.2 H 9.4 H Eos % (Auto) (0.0 - 6.0 %) 9.6 H 1.2 Baso % (Auto) (0.0 - 2.0 %) 1.2 0.7 Neut # (Auto) (1.8 - 7.6 K/mm3) 4.1 6.9 Lymph # (Auto) (0.6 - 3.0 K/mm3) 0.9 0.7 Bailey # (Auto) (0.2 - 1.5 K/mm3) 0.8 0.8 Eos # (Auto) (0.0 - 0.4 K/mm3) 0.6 H 0.1 Baso # (Auto) (0.0 - 0.2 K/mm3) 0.1 0.1 Abs Immat Gran (auto) (0.00 - 0.03 x10 3/uL) 0.06 H 0.10 H Add Manual Diff (CRITERIA DIFF/SCN) NO NO Immature Gran % (0.0 - 5.0 %) 0.9 1.2 Nucleated RBC % (0.0 - 1.0 /100WBC%) 0.0 0.0 Laboratory Tests 05/29 1544 Urines Urine Color (YEL/STRAW discript) YELLOW Urine Appearance (CLEAR discript) HAZY H Urine pH (5.0 - 7.0 pH UNITS) 7.5 H Ur Specific [place] (1.005 - 1.030 SG) <=1.005 Urine Protein (NEG mg/dL) NEGATIVE Urine Glucose (UA) (NEG mg/dL) NEGATIVE Urine Ketones (NEG mg/dL) NEGATIVE Urine Blood (NEG mg/DL) 1+ H Urine Nitrite (NEG SCREEN) NEGATIVE Urine Bilirubin (NEG mg/dL) NEGATIVE Urine Urobilinogen (<2.0 mg/dL) 0.2 Ur Leukocyte Esterase (NEGATIVE Leuk/mcL) NEGATIVE Urine RBC (0 - 3 #RBC/HPF) 5-10 H Urine WBC (0 - 3 #WBC/HPF) 0-1 Ur Squamous Epith Cells (NONE /HPF) TRACE Urine Bacteria (NONE - TRACE /HPF) 1+ H Urine Mucus (NONE SEEN /LPF) TRACE Urine Culture Screen (Culture CHK Criteria) NO, WBC<10 Radiology Data:Recent Impressions:CAT SCAN - CT HEAD/BRAIN W/O CONT 05/29 1401 Report Impression - Status: SIGNED Entered: 05/29/2022 1446 Impression: 1. No evidence of acute pathology.2. Senescent changes.3. Left frontal encephalomalacia unchanged. Impression By: [email or web address] - David Silverman M.D.CAT SCAN - CT ANGIO NECK 05/29 1408 Report Impression - Status: SIGNED Entered: 05/29/2022 1451 IMPRESSION: 1. Scattered atherosclerotic plaque with mild less than 50% narrowingat the left carotid bifurcation. No other area of significantstenosis.2. No intracranial large vessel occlusion.Impression By: Homer - Olegario Griffith M.D.CAT SCAN - CT ANGIO HEAD 05/29 1408 Report Impression - Status: SIGNED Entered: 05/29/2022 1451 IMPRESSION: 1. Scattered atherosclerotic plaque with mild less than 50% narrowingat the left carotid bifurcation. No other area of significantstenosis.2. No intracranial large vessel occlusion.Impression By: Homer Griffith M.D.RADIOLOGY - XR CHEST 1 V 05/29 1420 Report Impression - Status: SIGNED Entered: 05/29/2022 1447 IMPRESSION: 1. Stable chest. No focal consolidation.Impression By: Homer Griffith M.D. Results: labs reviewed, vital signs reviewed, EKG personally reviewed, rhythm personally rev'dEKG Interpretation: atrial fibrillation Diagnosis, Assessment PlanPlan discussed with: patient, healthcare power of atty Free Text DxA P NotesFree Text DxA P Notes:71 YO male chronically ill-looking male, appear confused, [facility] The patient has PMH of CVA, AFib on Eliquis, CAD with prior PCI who presented to ED with abnormal speech. Initial Head imaging negative for acute IC finding. Troponin came back elevated and cardiology consultation is requested. Troponin: 160.5->223.5. EKG showed atrial fibrillation with controlled rate, no acute ST/T wave changes. The patient denies chest pain or SOB. 1. Chronc atrial fibrillation - rate controlresume metoprololresume Eliquis if ok with neurologyechocardiogram 2. Positive troponin - Type I vs Type II MIKnown CAD with prior stentleaning toward Type II TN in the setting of possible TIA or ?UTI Troponin: 160.5->223.5, will get one more set, if trending down then will DC heparin gttwill get echocardiogramtelemetryASA 81 mg daily, atorvastatin 40 mg daily, Metoprolol 25 mg BIDno indication for invasive intervention at this time 3. Speech disturbance ? TIA, ?encephalopathy, ? Dementianeurology consulted 4. UA positive for bacteriuriamanage per primary team 5. Hx of CVA 6. Hypertensioncontinue BB MPOA/sister Ayla Ace phone [phone]. Appreciate the referral. at 1448 at 1821 RPT #: [id number] OF REPORT [id number]:15:00L.[id number] 049AVAvailable for patient [id number]:48:41 [facility] 2022-05-30 02:35:00 [id number] [id number]:35:00 [facility] ([facility])Hospitalist History PhysicalREPORT#:[id number] REPORT STATUS: SignedDATE:05/30/22 TIME:0235 PATIENT: FRAN SANTAMARIA UNIT #: [id number]#: [id number] [facility] AGE: 71 SEX: M ATTEND: Cheikh Gutierrez [facility] AUTHOR: Lucas Cueto * ALL edits or amendments must be made on the electronic/computer document * See AddendumLucas Cueto 05/30/22 0235:History of Present Illness HPIChief complaint:Altered mental statusPCP:PCP: No Primary or Family Physician HPI:71-year-old male with PMHx of massive CVA x5 (per patient), hypertension, atrialfibrillation, diabetes mellitus, coronary artery disease, status post stent placement presented to the ED for altered mental status. Of note, it was unclear when the patient was last seen at his normal baseline mental status. The staff at his nursing facility noticed that he had repetitive speech today. In the ED, his NIH score was reported as 0. Head CT and CTA no acute findings or significant stenosis. He was not a candidate for tPA or endovascular therapydue to the time of onset of his symptoms and because the patient is on Eliquis. EKG showed A-fib with HR 77. UA negative for UTI. Found elevated troponin. Vitals stable. Upon my evaluation patient is alert, orientated x4, appearing hismentation back to at his baseline. He is a good historian. Denies dizziness, chest pain, shortness of breath, abdominal pain, or nausea vomiting. Patient isincontinence. Patient just wants to be changed. Noted involuntary jerking movement of the left upper extremity. Patient states he usually has low BP. BP nl during ED stay. He is admitted for further evaluation and management. HistoryPast medical history:Reports: Atrial fibrillation, Coronary artery disease, Hypertension, Ischemic stroke. Additional medical history:CVA, hypertension, atrial fibrillation, diabetes mellitus, coronary artery diseasePast surgical history:Reports: PCI. Family history:Reports: Diabetes. Alcohol use: Denies EtOH useDrug use: Denies recreational drugsSmoking status for patients 13 years old or older: Former SmokerOther social history: Local resident Medication/Allergy-Vaccine HxMedications:Home Medications:Medication Dose/Rte/Freq Days Qty Entered Last Max Daily Dose Reviewed CITALOPRAM (CeleXA) 10 MG PO DAILY 08/08/18Strength: 10 MG TAB 2343 HYDROCHLOROTHIAZIDE 12.5 MG PO DAILY 08/08/18 (HCTZ) 2344Strength: 12.5 MG CAP SAXAGLIPTIN (ONGLYZA) 5 MG PO DAILY 08/08/18Strength: 5 MG TAB 2344 ASCORBIC ACID (VITAMIN C) 500 MG PO DAILY 08/08/18Strength: 500 MG TAB 2345 ATORVASTATIN (LIPITOR) 40 MG PO BEDTIME 08/08/18Strength: 40 MG TAB 2345 FINASTERIDE (PROSCAR) 08/08/18Strength: 5 MG TAB 234 TAMSULOSIN ER (FLOMAX) 0.8 MG PO DAILY 08/08/18Strength: 0.4 MG CAP.SR.24H 234 APIXABAN (ELIQUIS) 5 MG PO BID 08/08/18Strength: 5 MG TAB 2347 metFORMIN (GLUCOPHAGE) 850 MG PO TID 08/08/18Strength: 850 MG TAB 234 traZODone (DESYREL) 150 MG PO BEDTIME 08/08/18Strength: 150 MG TAB 234 amLODIPine (NORVASC) 10 MG PO DAILY 08/08/18Strength: 10 MG TAB 234 OXYBUTYNIN (DITROPAN) 5 MG PO BID 08/08/18Strength: 5 MG TAB 235 KETOCONAZOLE 1 APPLIC TOPICAL 08/08/18 (NIZORAL 2%) MOWEFR 235Strength: 120 ML SHAMPOO KETOCONAZOLE 1 APPLIC TOPICAL 08/08/18 (NIZORAL 2%) DAILY 2354Strength: 75 GM CREAM traZODone (DESYREL) 150 MG PO 08/09/18Strength: 150 MG TAB BEDTIME PRN 0000 INSOMNIA OMEGA-3 FATTY ACIDS 1,000 MG PO DAILY 08/09/18 (FISH OIL) 0001Strength: 1,000 MG CAP DOCUSATE SODIUM 100 MG PO 30 08/10/18 (COLACE) Q12H PRN PRN 0922Strength: 100 MG CAP CONSTIPATION FLUTICASONE PROPIONATE 1 SPRAY NASAL BID 30 08/10/18 (FLONASE 50 MCG/ACT 0923 NASAL)Strength: 16 GM SPRAY FAMOTIDINE (PEPCID) 20 MG PO BID 30 08/10/18Strength: 20 MG TAB 0924 Current Hospital Medications:Central Nervous System Agents Sig/Manuel Start time Last [...] Chloride 250 ML BOLUS ONCE ONE 05/29 1630 DC 05/29 (0.9% Sodium IV 05/29 1631 1633 Chloride) Allergies:Coded Allergies:No Known Allergies (05/29/22) 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 Skin:Denies: rash, swelling. Allergy/Immun:Denies: rhinorrhea, sneezing. Eyes:Denies: visual loss/blurred. ENT:Denies: sore throat. Respiratory:Denies: DURAND (dyspnea on exertion), SOB. Cardiovascular:Denies: chest pain, parox nocturnal dyspnea. GI:Denies: abdominal pain, nausea, vomiting. :Denies: dysuria, flank pain. Musculoskeletal: Extremity pain: Denies: left upper, left lower, right upper, right lower. Heme:Denies: adenopathy. Endocrine:Denies: cold intolerance, heat intolerance. Neuro:Denies: confusion, dizziness, numbness, slurred speech, syncope. Psych:Denies: confusion. Objective GeneralVS/I O:Vital Signs: Date Time Temp Pulse Resp B/P B/P Pulse O2 O2 Flow FiO2 Mean Ox Delivery Rate 05/29 1722 [...] Weight (lb): Weight (oz): Weight (kg): 71.400 Medications:Active Meds + DC'd Last 24 HrsSodium Chloride (0.9% Sodium Chloride) 1,000 ML .Q10H IV Sodium Chloride (0.9% Sodium Chloride) 250 ML BOLUS ONCE ONE IV (DC) Aspirin (ASPIRIN CHEWABLE) 324 MG X1ED STA PO (DC) Iopamidol (ISOVUE-370) 0 .STK-MED ONE IV (DC) Physical ExamGeneral appearance: chronically ill appearing, alert, awake, oriented, no acute distress, no respiratory distressHead/Eyes: atraumatic, normal conjunctiva/sclera, normal eyelids/periorb., normocephalic, PERRLENT: moist mucosal membranesNeck: full range of motion, normal thyroid, supple/no meningismus, no JVD, no masses or swellingCardiovascular: normal capillary refill, normal heart sounds, regular rate rhythmRespiratory: aerating well, clear to auscultation, symmetric expansion, no distressAbdomen: non-tender, normal bowel sounds, soft, no distentionGenitourinary: urine, no flank painExtremities: normal capillary refill, no cyanosis, no edemaMusculoskeletal: normal inspectionNeuro/OPAL MINER: right hemiparesis, alert, oriented X 3, normal speech, no sensory deficitsSkin: normal color, normal temperatureLymphatics: neck normal, no lymphadenopathyPsychiatry: normal affect ResultsFindings/Data:Laboratory Tests 05/29 1442 Chemistry Sodium (134 - 147 mmol/L) 129 L Potassium (3.4 - 5.0 mmol/L) 3.7 Chloride (100 - 108 mmol/L) 93 L Carbon Dioxide (21 - 32 mmol/L) 29 Anion Gap (4.0 - 15.0 GAP calc) 7.0 BUN (7 - 18 MG/DL) 8 Creatinine (0.8 - 1.3 MG/DL) 0.9 Glomerular Filtr Rate (>60 estGFR) >=60 max estimate Glucose (70 - 110 MG/DL) 168 H Calcium (8.5 - 10.1 MG/DL) 9.9 Troponin I High Sens (0 - 54 ng/L) 160.5 *H Laboratory Tests 05/29 1442 Coagulation INR (0.8 - 1.2 INR Unit) 1.12 PTT (Benny) (26 - 35 SECONDS) 28.9 PT Patient/Control Mix (9.3 - 12.9 SECONDS) 12.8 Laboratory Tests 05/29 1442 Hematology WBC (3.5 [...] (Auto) (20.5 - 51.1 %) 7.6 L Bailey % (Auto) (1.7 - 9.3 %) 9.4 H Eos % (Auto) (0.0 - 6.0 %) 1.2 Baso % (Auto) (0.0 - 2.0 %) 0.7 Neut # (Auto) (1.8 - 7.6 K/mm3) 6.9 Lymph # (Auto) (0.6 - 3.0 K/mm3) 0.7 Bailey # (Auto) (0.2 - 1.5 K/mm3) 0.8 Eos # (Auto) (0.0 - 0.4 K/mm3) 0.1 Baso # (Auto) (0.0 - 0.2 K/mm3) 0.1 Abs Immat Gran (auto) (0.00 - 0.03 x10 3/uL) 0.10 H Add Manual Diff (CRITERIA DIFF/SCN) NO Immature Gran % (0.0 - 5.0 %) 1.2 Nucleated RBC % (0.0 - 1.0 /100WBC%) 0.0 Laboratory Tests 05/29 1544 Urines Urine Color (YEL/STRAW discript) YELLOW Urine Appearance (CLEAR discript) HAZY H Urine pH (5.0 - 7.0 pH UNITS) 7.5 H Ur Specific [place] (1.005 - 1.030 SG) <=1.005 Urine Protein (NEG mg/dL) NEGATIVE Urine Glucose (UA) (NEG mg/dL) NEGATIVE Urine Ketones (NEG mg/dL) NEGATIVE Urine Blood (NEG mg/DL) 1+ H Urine Nitrite (NEG SCREEN) NEGATIVE Urine Bilirubin (NEG mg/dL) NEGATIVE Urine Urobilinogen (<2.0 mg/dL) 0.2 Ur Leukocyte Esterase (NEGATIVE Leuk/mcL) NEGATIVE Urine RBC (0 - 3 #RBC/HPF) 5-10 H Urine WBC (0 - 3 #WBC/HPF) 0-1 Ur Squamous Epith Cells (NONE /HPF) TRACE Urine Bacteria (NONE - TRACE /HPF) 1+ H Urine Mucus (NONE SEEN /LPF) TRACE Urine Culture Screen (Culture CHK Criteria) NO, WBC<10 Radiology data:Recent Impressions:CAT SCAN - CT HEAD/BRAIN W/O CONT 05/29 1401 Report Impression - Status: SIGNED Entered: 05/29/2022 1446 Impression: 1. No evidence of acute pathology.2. Senescent changes.3. Left frontal encephalomalacia unchanged. Impression By: Tolu Silverman M.D.CAT SCAN - CT ANGIO NECK 05/29 1408 Report Impression - Status: SIGNED Entered: 05/29/2022 1451 IMPRESSION: 1. Scattered atherosclerotic plaque with mild less than 50% narrowingat the left carotid bifurcation. No other area of significantstenosis.2. No intracranial large vessel occlusion.Impression By: Homer Griffith M.D.CAT SCAN - CT ANGIO HEAD 05/29 1408 Report Impression - Status: SIGNED Entered: 05/29/2022 1451 IMPRESSION: 1. Scattered atherosclerotic plaque with mild less than 50% narrowingat the left carotid bifurcation. No other area of significantstenosis.2. No intracranial large vessel occlusion.Impression By: Homer Griffith M.D.RADIOLOGY - XR CHEST 1 V 05/29 1420 Report Impression - Status: SIGNED Entered: 05/29/2022 1447 IMPRESSION: 1. Stable chest. No focal consolidation.Impression By: Homer Griffith M.D. Diagnosis, Assessment Plan Free Text DxA P NotesFree Text DxA P Notes:71 yo male with PMHX of multiple CVAx5, CAD, HTN, DM2 admitted for 1. Altered mental status appearing back to his baseline no obvious convincing metabolic or neurologic etiology head CT/CTA no significant acute abnormality neuro check 2. Elevated troponin trend troponin x3, EKG x3 Monitor on the telemetry not on anticoagulants, pt is on Eliquis for A-fib 3. R/O STROKE not a candidate for tPA or neuro intervention h/o massive CVA [id number] head CT/CTA ruled out neuro vitals Hemoglobin A1c, lipid panel pending avoid lowering BP too low 4. Hyponatremia unknown etiology IVF, BS control, repeat bmp hold home med HCTZ 5. Atrial fibrillation continue Eliquis not on BB HR controlled 6. DM2 ACHS SSI VTE ppx: on EliquisFull code at 0506 at 1404 Addendum 1: 05/30/22 0512 by Lucas Cueto Troponin trending up to 223.5 from 160.5. Will hold Eliquis and start heparin drip. at 0513 at 1405 RPT #: [id number] OF REPORT HPHistory and physical [id number]:35:00L.[id number] AVAvailable for patient [id number]:07:20 [facility] 2022-05-29 13:59:00 [id number]:59:00 [facility] ([facility])EMERGENCY PROVIDER REPORTREPORT#:[id number] REPORT STATUS: SignedDATE:05/29/22 TIME:1359 PATIENT: FRAN SANTAMARIA Farheen UNIT #: [id number]#: [id number] ROOM/BED: FarheenM138-7SFL: 50 AGE: 71 SEX: M PCP PHYS: No Primary or Family PhysicianSERVICE AUTHOR: Cami Salomon DO * ALL edits or amendments must be made on the electronic/computer document * Cami Salomon 05/29/22 1359:HPI-Altered Mental Status GeneralInitial Greet Date/Time 05/29/22 1357 PresentationChief Complaint Not acting right Free Text HPI NotesFree Text HPI NotesThe patient is a 71-year-old male with a past medical history significant for hypertension, atrial fibrillation, diabetes mellitus, history of a stroke, coronary artery disease status post stent placement who is presenting with altered mental status. Per EMS it is unclear when the patient was last seen at his normal baseline mental status. The staff at his nursing facility noticed that he had repetitive speech today. Risk-Altered Mental StatusNIH Stroke Scale NIH Stroke Scale Response Value NIHSS Applicable? Yes 0 Total 0 Review of Systems ROS StatementsAll systems rev neg except as marked. Past Medical History - AdultStated Complaint ALTERED MENTAL STATUSAllergiesCoded Allergies:No Known Allergies (05/29/22) Home MedicationsActive ScriptsDOCUSATE SODIUM (COLACE) 100 MG PO Q12H PRN PRN CONSTIPATION FLUTICASONE PROPIONATE (FLONASE 50 MCG/ACT NASAL) 1 SPRAY NASAL BID FAMOTIDINE (PEPCID) 20 MG PO BID Reported MedicationsCITALOPRAM (CeleXA) 10 MG PO DAILY HYDROCHLOROTHIAZIDE (HCTZ) [...] BID KETOCONAZOLE (NIZORAL 2%) 1 APPLIC TOPICAL MOWEFR KETOCONAZOLE (NIZORAL 2%) 1 APPLIC TOPICAL DAILY traZODone (DESYREL) 150 MG PO BEDTIME PRN INSOMNIA OMEGA-3 FATTY ACIDS (FISH OIL) 1,000 MG PO DAILY Discontinued Reported MedicationsamLODIPine (NORVASC) 10 MG PO DAILY Past Medical History:Reports: Atrial fibrillation, Coronary artery disease, Hypertension, Ischemic stroke. Past Surgical History:Reports: PCI. Physical Exam Vital SignsReview of Vital Signs Reviewed Free Text PE NotesFree Text PE NotesFree Text PE NotesPhysical ExamGeneral/Const General/Const Awake, Alert, No acute distress, Well appearingMS Head Head Atraumatic, NormocephalicEyes Eyes Atraumatic, No scleral icterusEars/Nose/Throat Ears/Nose/Throat Atraumatic, Airway patent, Mucous membranes moist, Pharynx NLMS Neck Neck Atraumatic, Supple, No meningismus, Full range of motionResp/Chest Respiratory/Chest Atraumatic, Breath sounds NL, Breath sounds = bilat, No respiratory distressCardiovascular Cardiovascular Heart rate NL, Regular rhythm, Heart sounds NL, No gallop, No murmursAbdomen/GI Abdomen/GI Atraumatic, Soft, Non-tender, McBurney's non-tender, No guardingMS Back Back Atraumatic, No muscle spasmMS Upper Extrem Upper Extremity/MS Atraumatic, Inspection NL, No swellingMS Lower Extrem Lower Ext/Pelvis/MS Atraumatic, Inspection NL, No swelling, Non-tenderSkin Skin Atraumatic, Color NL, No rash, WarmNeurologic Neurologic Oriented X3, Speech NL, No motor deficits, No sensory deficits Interpretation Diagnostics ECG #1 InterpretationText/Dict NoteAtrial fibrillation with a heart rate of 77. No STEMI.Date 05/29/22Time 1433Interpreted by ED physician Re-Evaluation MDM Free Text MDM NotesFree Text MDM NotesThe patient is not a candidate for tPA or endovascular therapy due to the time of onset of his symptoms and because the patient is on Eliquis. )( Re-Evaluation/Progress #1Text/Dict NoteI spoke with the patient's sister (Clarice Ace [phone]). The patient waslast seen at his normal baseline mental status 1 week ago. Time of Re-Eval 1605)( Re-Eval Status Unchanged ED CourseMedication(s) OrderedMedication(s) Ordered:Central Nervous System Agents Sig/Manuel Start time Last [...] Chloride 250 ML BOLUS ONCE ONE 05/29 1630 DC 05/29 IV 05/29 1631 1633 Patient Discharge Departure Disposition DecisionTransfer )( Request Time 1554 )( Request Date 05/29/22 Call Returned Time 1554 Discharge/Care Plan(Auto) PrescriptionsCurrent Visit ScriptsMETOPROLOL SUCC XL (TOPROL XL) 25 MG PO DAILY METOPROLOL SUCC XL (TOPROL XL) 25 MG PO DAILY #30 TAB ArchanaIván Oscar 05/29/222036:Physical Exam Vital SignsVital SignsFirst Documented: Result Date Time Pulse Ox 95 [...] 36.9 05/29 1355 Interpretation Diagnostics Lab Results InterpretationResultsLaboratory Tests 05/29/22 1442:[Embedded Image Not Available]Laboratory Tests: 05/29 05/29 1544 1442 Chemistry Sodium (134 - 147 mmol/L) 129 L Potassium (3.4 - 5.0 mmol/L) 3.7 Chloride (100 - 108 mmol/L) 93 L Carbon Dioxide (21 - 32 mmol/L) 29 Anion Gap (4.0 - 15.0 GAP calc) 7.0 BUN (7 - 18 MG/DL) 8 Creatinine (0.8 - 1.3 MG/DL) 0.9 Glomerular Filtr Rate (>60 estGFR) >=60 max estimate Glucose (70 - 110 MG/DL) 168 H Calcium (8.5 - 10.1 MG/DL) 9.9 Troponin I High Sens (0 - 54 ng/L) 160.5 *H Coagulation INR (0.8 - 1.2 INR Unit) 1.12 PTT (Braxton) (26 - 35 SECONDS) 28.9 PT Patient/Control Mix (9.3 - 12.9 SECONDS) 12.8 Hematology WBC (3.5 - 11.0 K/mm3) 8.7 [...] (Auto) (20.5 - 51.1 %) 7.6 L Bailey % (Auto) (1.7 - 9.3 %) 9.4 H Eos % (Auto) (0.0 - 6.0 %) 1.2 Baso % (Auto) (0.0 - 2.0 %) 0.7 Neut # (Auto) (1.8 - 7.6 K/mm3) 6.9 Lymph # (Auto) (0.6 - 3.0 K/mm3) 0.7 Bailey # (Auto) (0.2 - 1.5 K/mm3) 0.8 Eos # (Auto) (0.0 - 0.4 K/mm3) 0.1 Baso # (Auto) (0.0 - 0.2 K/mm3) 0.1 Abs Immat Gran (auto) (0.00 - 0.03 x10 3/uL) 0.10 H Add Manual Diff (CRITERIA DIFF/SCN) NO Immature Gran % (0.0 - 5.0 %) 1.2 Nucleated RBC % (0.0 - 1.0 /100WBC%) 0.0 Urines Urine Color (YEL/STRAW discript) YELLOW Urine Appearance (CLEAR discript) HAZY H Urine pH (5.0 - 7.0 pH UNITS) 7.5 H Ur Specific [place] (1.005 - 1.030 SG) <=1.005 Urine Protein (NEG mg/dL) NEGATIVE Urine Glucose (UA) (NEG mg/dL) NEGATIVE Urine Ketones (NEG mg/dL) NEGATIVE Urine Blood (NEG mg/DL) 1+ H Urine Nitrite (NEG SCREEN) NEGATIVE Urine Bilirubin (NEG mg/dL) NEGATIVE Urine Urobilinogen (<2.0 mg/dL) 0.2 Ur Leukocyte Esterase (NEGATIVE Leuk/mcL) NEGATIVE Urine RBC (0 - 3 #RBC/HPF) 5-10 H Urine WBC (0 - 3 #WBC/HPF) 0-1 Ur Squamous Epith Cells (NONE /HPF) TRACE Urine Bacteria (NONE - TRACE /HPF) 1+ H Urine Mucus (NONE SEEN /LPF) TRACE Urine Culture Screen (Culture CHK Criteria) NO, WBC<10 Recent Impressions:CAT SCAN - CT HEAD/BRAIN W/O CONT 05/29 1401 Report Impression - Status: SIGNED Entered: 05/29/2022 1446 Impression: 1. No evidence of acute pathology.2. Senescent changes.3. Left frontal encephalomalacia unchanged. Impression By: Tolu Silverman M.D.CAT SCAN - CT ANGIO NECK 05/29 1408 Report Impression - Status: SIGNED Entered: 05/29/2022 1451 IMPRESSION: 1. Scattered atherosclerotic plaque with mild less than 50% narrowingat the left carotid bifurcation. No other area of significantstenosis.2. No intracranial large vessel occlusion.Impression By: Homer Griffith M.D.CAT SCAN - CT ANGIO HEAD 05/29 1408 Report Impression - Status: SIGNED Entered: 05/29/2022 1451 IMPRESSION: 1. Scattered atherosclerotic plaque with mild less than 50% narrowingat the left carotid bifurcation. No other area of significantstenosis.2. No intracranial large vessel occlusion.Impression By: Homer Griffith M.D.RADIOLOGY - XR CHEST 1 V 05/29 1420 Report Impression - Status: SIGNED Entered: 05/29/2022 1447 IMPRESSION: 1. Stable chest. No focal consolidation.Impression By: CostaRXC2 - Olegario Griffith M.D. Re-Evaluation MDM Re-Evaluation/Progress #2Text/Dict NoteSigned out to me with plan to complete transfer. Transfer center called me backand told me that they are unavailable to find hospital to accept him given his and his family's criteria. Will admit here for further managementTime of Eval 0137Re-Eval Status Unchanged Patient Discharge Departure Vital Signs/ConditionVital SignsFirst Documented: Result Date Time Pulse Ox 95 [...] signs available at the time of this entry have been reviewed. Clinical ImpressionClinical ImpressionPrimary Impression: Altered mental statusSecondary Impressions: Elevated troponin, R/O STROKE Disposition DecisionAdmit Admit Physician Name Cheikh Gutierrez MD Admit Physician Hospitalist Request Time 0138 Request Date 05/30/22 )( Admission Accepts Yes )( Accepted Time 0138 )( Accepted Date 05/30/22 Call Information will see patient, agrees with eval, agrees with plan at 0139 at 0242 RPT #: [id number] OF REPORTEDEmergency department sedfii4751-76-18A71:59:00L.[id number] ilable for patient zxpyUPDIVKBYRVRHQD9135-81-22Z85:39:40 [facility] 2018-08-10 10:22:00 [id number] 27bHmVXlJSLbDLrumsGiISRG6vlJe 0m/w6kWlMtoDOrnQpQe7liCdA7VZ0Bqjc4056-41-78W49:22 :[address] [facility] [place], [place]Neurology Progress NoteREPORT#:[id number] REPORT STATUS: SignedDATE:08/10/18 TIME:1022 PATIENT: FRAN SANTAMARIA UNIT #: [id number]#: [id number] [address] AGE: 67 SEX: M ATTEND: Cheikh Gutierrez MDADM AUTHOR: Romy Marie MD * ALL edits or amendments must be made on the electronic/computer document * SubjectiveChief Complaint:weaknessHPI:feeling better. offers no complaints. Review of SystemsNeuro:Reports: gait problem, weakness. Systems reviewed negative: allergy/Immun, cardiovascular, constitutional, endocrine, ENT, eyes, GI, , heme, musculoskeletal, psych, respiratory, skin Objective Physical ExamVS:Last Documented: Result Date Time Pulse Ox 93 08/10 703 B/P 133/73 08/10 703 B/P Mean 0.0 08/10 703 Temp 36.8 08/10 703 Pulse 63 08/10 703 Resp 18 08/10 703 O2 Delivery Room air 08/08 1927 Medications:Current Home MedicationsCITALOPRAM (CeleXA) 10 MG PO DAILY HYDROCHLOROTHIAZIDE (HCTZ) [...] BID KETOCONAZOLE (NIZORAL 2%) 1 APPLIC TOPICAL MOWEFR KETOCONAZOLE (NIZORAL 2%) 1 APPLIC TOPICAL DAILY traZODone (DESYREL) 150 MG PO BEDTIME PRN INSOMNIA OMEGA-3 FATTY ACIDS (FISH OIL) 1,000 MG PO DAILY DOCUSATE SODIUM (COLACE) 100 MG PO Q12H PRN PRN CONSTIPATION FLUTICASONE PROPIONATE (FLONASE 50 MCG/ACT NASAL) 1 SPRAY NASAL BID FAMOTIDINE (PEPCID) 20 MG PO BID Active Meds + DC'd Last 24 HrsFamotidine 20 MG BID PO Trazodone HCl 150 [...] PO Hydrocodone Bitart/Acetaminophen 1 TAB Q4H PRN PRN PO Hydrocodone Bitart/Acetaminophen 1 TAB Q4H PRN PRN PO Ondansetron HCl 4 MG Q4H PRN PRN IV General appearance: alert, awakeHead/Eyes: atraumatic, clear corneaENT: moist mucosal membranesNeck: full range of motionCardiovascular: irregular rate and rhythmRespiratory: aerating well, no distressExtremities: moves all, pulses present, no edemaMusculoskeletal: full range of motion SpeechSpeech: normal Mental StatusOrientation:Yes: to time, to place, to person, to situation. LOC: alert Cranial NervesCranial nerves:Normal: II, III, IV, V, , VII, VIII, IX, X, XI, XII. Sensory ExamSensory:Normal: light touch. Motor TestingMotor testing 1:Normal: bulk, tone, fine movements, strength. Cerebellar TestCerebellar test:Normal R finger/nose/finger, Normal L finger/nose/finger, Normal R heel/knee/ramirez, Normal L heel/knee/ramirez, Normal R alt rapid movement, Normal L alt rapid movement ReflexesPlantar reflexes:Up: Right. GaitGait comments:walks with a walker ResultsFindings/Data:Laboratory Tests 08/10 08/10 08/09 08/09 08/09 0749 0415 2040 1611 1215Chemistry Sodium (134 - 147 mmol/L) 136 Potassium (3.4 - 5.0 mmol/L) 3.6 Chloride (100 - 108 mmol/L) 101 Carbon Dioxide (21 - 32 mmol/L) 26 Anion Gap (4.0 - 15.0 GAP calc) 9.0 BUN (7 - 18 MG/DL) 12 Creatinine (0.8 - 1.3 MG/DL) 0.9 Glomerular Filtr Rate (>60 >=60 max estimateestGFR) Glucose (70 - 110 MG/DL) 171 H POC Glucose (70 - 110 mg/dL) 191 H 199 H 219 H 185 H Calcium (8.5 - 10.1 MG/DL) 7.9 L Laboratory Tests 08/105 Hematology WBC (3.5 - 11.0 K/mm3) 6.5 [...] (Auto) (20.5 - 51.1 %) 14.0 L Bailey % (Auto) (1.7 - 9.3 %) 11.1 H Eos % (Auto) (0.0 - 6.0 %) 8.9 H Baso % (Auto) (0.0 - 2.0 %) 0.5 Neut # (Auto) (1.8 - 7.6 K/mm3) 4.27 Lymph # (Auto) (0.6 - 3.0 K/mm3) 0.9 Bailey # (Auto) (0.2 - 1.5 K/mm3) 0.7 Eos # (Auto) (0.0 - 0.4 K/mm3) 0.6 H Baso # (Auto) (0.0 - 0.2 K/mm3) 0.0 Add Manual Diff (CRITERIA DIFF/SCN) NO Radiology Data:Recent Impressions:MAGNETIC RESONANCE IMAGING - MRI BRAIN W/O CONTRAST 08/09 1108 Report Impression - Status: SIGNED Entered: 08/09/2018 1156 IMPRESSION: Findings likely reflective a small dural based meningioma centeredlaterally along the high convexity left frontal region measuring 2.1 x2.1 x 1.2 cm in size with minimal local mass effect without associatededema. The finding exhibits restriction typical for a meningioma. Noother space-occupying process. Doubt other extra-axial lesionsaccounting for the findings No acute vascular insult. No intracranial hemorrhage. Old vascularinsult in particular the left FLY territory. Chronic microvascularchanges elsewhere. Impression By: Wang - Daina Viera M.D. Results: labs reviewed, vital signs stable, current med profile rev'd Diagnosis, Assessment PlanFree Text A P:1. weakness - Possible recrudescence of stroke symptoms in setting of acute renal failure, uncontrolled hyperglycemia, recent URTI2. Hypertension3. Diabetes mellitus4. Atrial fibrillation5. Acute renal failure - resolved. 6. Chronic left frontal stroke/reported history of multiple strokes7. Recent URTI8. Left frontal meningioma PLAN:Telemetry.Reviewed CT scan of head and MRI brain images.Continue with current medications.Check fasting lipid profile.Advised better hydration.IV fluids per primary team.PT and OT evaluation.Fall precautions.DVT prophylaxis.Neurology to follow. Plan was discussed with the patient and primary team. 08/10 - stable. pt is getting discharged today. at 1024 RPT #: [id number] OF REPORT PRProgress Eesk0879-63-01R10:22:00L.[id number] able for patient cmbeQIRSTZGPWBIXPF7093-75-91L68:24:41 [facility] 2018-08-10 09:17:00 SKrftbsovfn4297795xn 6cQUCc/+M/Tn1gmCugzKzdGkqX15I PTmqqalnG+OwCcbV/fpqB7U8xVNmHEUel6633-68-44A41:17 :00 [facility] ([facility])Discharge SummaryREPORT#:[id number] REPORT STATUS: SignedDATE:08/10/18 TIME:916 PATIENT: FRAN SANTAMARIA UNIT #: [id number]#: [id number] [address] [birth year] AGE: 67 SEX: M ATTEND: Cheikh Gutierrez AUTHOR: Jaydon Lester CHILD SUPPORT SPECIALIST * ALL edits or amendments must be made on the electronic/computer document * PCP PCPPCP:PCP: DOES_NOT KNOW Discharge to: home with home health svc General InformationDate of admission:Observation Start Date: 08/08/18Date of admission: 08/08/18 Date of discharge: 08/10/18Admission diagnosis:Generalized weaknessAcute kidney injuryHypertensionHyperlipidemiaAtrial fibrillationChronic left frontal stroke with history of multiple strokes in the pastLeft frontal meningiomaDischarge diagnosis:Generalized weaknessAcute kidney injuryHypertensionHyperlipidemiaAtrial fibrillationChronic left frontal stroke with history of multiple strokes in the pastLeft frontal meningiomaHospital course:Generalized weaknessAcute kidney injuryHypertensionHyperlipidemiaAtrial fibrillationChronic left frontal stroke with history of multiple strokes in the pastLeft frontal meningioma PlanWe will get an MRI to rule out any acute CVA and status of meningiomaMonitor renal parametersStart on IV fluidsNeurology consultContinue home medications and titrate as neededDiscussed with familyPossible DC in a.m. if workup is negativeGI/DVT prophylaxisAdvanced directive: Full code at 1809 08/10/18 pt requesting to be d/c home. stroke has been r/o. will get CM to ordered Home health PT/SNwill add pepcid 20 mg po bid on d/c d/c home was ok with Dr. Gutierrez. I have discussed the MRI results with Dr. Gutierrez and the pt. the pt reported he has had the meningioma for over 9-10 years. Pt. condition on discharge: improved, stableAllergies:Allergies:No Known Allergies (Coded, 08/08/18) Med Rec PCPPCP:PCP: DOES_NOT KNOW Med RecDischarge meds:Continue taking these medications:CITALOPRAM (CeleXA) 10 MG TAB 10 MILLIGRAM ORAL [...] 150 MILLIGRAM ORAL BEDTIME. as needed for INSOMNIA OMEGA-3 FATTY ACIDS (FISH OIL) 1,000 MG CAP 1,000 MILLIGRAM ORAL DAILY. Start taking the following new medications:FLUTICASONE PROPIONATE (FLONASE 50 MCG/ACT NASAL) 16 GM SPRAY 1 SPRAY NASAL TWICE DAILY. Days = 30 No Refills DOCUSATE SODIUM (COLACE) 100 MG CAP 100 MILLIGRAM ORAL EVERY 12 HR NEEDED. as needed for CONSTIPATION Days = 30 No Refills FAMOTIDINE (PEPCID) 20 MG TAB 20 MILLIGRAM ORAL TWICE DAILY. Days = 30 No Refills Discharge InstructionsDiet: cardiac, low fat, low sodiumWeight monitor: WeeklyNotify provider of these s/s:follow up with pcp in 1-4 days. you must call for an appointment. Prescriptions: on chartDischarge management: greater than 30 minsTime spent: Time spent with pt: 35 minutes or more ObjectiveVS/I OLast Documented: Result Date Time Pulse Ox 93 08/10 703 B/P 133/73 08/10 703 B/P Mean 0.0 08/10 703 Temp 98.2 08/10 703 Pulse 63 08/10 703 Resp 18 08/10 703 O2 Delivery Room air 08/08 1927 24 hour I O ending at 0700: 08/10 0708/09 1900 Intake Total 300 Output Total 900 Balance -600 Intake, Oral 300 Output, Urine 900 Patient 94.347 kg Weight Weight Bed scale Measurement Method General appearance: alert, awake, oriented, no acute distress, pleasant, conversational, mental status normal, no respiratory distressHead/Eyes: atraumatic, EOMIENT: normal nose, moist mucosal membranesNeck: full range of motion, non-tender, supple/no meningismusCardiovascular: normal capillary refill, regular rate rhythm, normal heart soundsRespiratory: clear to auscultation, no distress, no tenderness, aerating wellGI: soft, non-tender, no distention Abdomen quadrants:LLQ normal bowel sounds, LUQ normal bowel sounds, RLQ normal bowel sounds, RUQ normal bowel soundsGenitourinary: not indicatedExtremities: moves all, no edema-all extremities, normal capillary refill, normal range of motion, normal sensory, normal motor function, no evidence of DVTMusculoskeletal: full range of motion, normal inspectionNeuro/OPAL MINER: alert, oriented X 3, normal gait, normal speech, no motor deficits, no sensory deficitsGlasgow Coma Score: Randolph Coma Score: Response Value Randolph eyes: eyes open spontaneously 4 Timothy speech: oriented 5 Randolph motor: obeys commands 6 Total 15 Skin: dry, intactPsychiatry: normal affect, normal judgment/insight, normal mood ResultsFindings/Data:Laboratory Tests: 08/10 08/10 08/09 08/09 08/09 0749 0415 2040 1611 1215Chemistry Sodium (134 - 147 mmol/L) 136 Potassium (3.4 - 5.0 mmol/L) 3.6 Chloride (100 - 108 mmol/L) 101 Carbon Dioxide (21 - 32 mmol/L) 26 Anion Gap (4.0 - 15.0 GAP calc) 9.0 BUN (7 - 18 MG/DL) 12 Creatinine (0.8 - 1.3 MG/DL) 0.9 Glomerular Filtr Rate (>60 >=60 max estimateestGFR) Glucose (70 - 110 MG/DL) 171 H POC Glucose (70 - 110 mg/dL) 191 H 199 H 219 H 185 H Calcium (8.5 - 10.1 MG/DL) 7.9 LHematology WBC (3.5 - 11.0 K/mm3) 6.5 RBC [...] (Auto) (20.5 - 51.1 %) 14.0 L Bailey % (Auto) (1.7 - 9.3 %) 11.1 H Eos % (Auto) (0.0 - 6.0 %) 8.9 H Baso % (Auto) (0.0 - 2.0 %) 0.5 Neut # (Auto) (1.8 - 7.6 K/mm3) 4.27 Lymph # (Auto) (0.6 - 3.0 0.9K/mm3) Bailey # (Auto) (0.2 - 1.5 K/mm3) 0.7 Eos # (Auto) (0.0 - 0.4 K/mm3) 0.6 H Baso # (Auto) (0.0 - 0.2 K/mm3) 0.0 Add Manual Diff (CRITERIA NODIFF/SCN) Radiology data:Recent Impressions:CAT SCAN - CT HEAD/BRAIN W/O CONT 08/08 2019 Report Impression - Status: SIGNED Entered: 08/08/20182038 IMPRESSION: No evidence of acute intracranial abnormality. Chronic infarcts within the left parietal and frontal lobes. Extra-axial lesion towards the vertex of the left frontal lobemeasuring 1.7 x 1.2 x 1.2 cm, likely related to a meningioma. If notpreviously assessed, recommend follow-up with an MRI brain without andwith contrast.Impression By: [email or web address] Zahira Anaya M.D.RADIOLOGY - XR CHEST 1 V 08/08 2025 Report Impression - Status: SIGNED Entered: 08/08/20182037 IMPRESSION: Unremarkable portable examination of the chest.Impression By: [email or web address] - Olegario Omalley M.D.MAGNETIC RESONANCE IMAGING - MRI BRAIN W/O CONTRAST 08/09 1107 Report Impression - Status: SIGNED Entered: 08/09/20181155 IMPRESSION: Findings likely reflective a small dural based meningioma centeredlaterally along the high convexity left frontal region measuring 2.1 x2.1 x 1.2 cm in size with minimal local mass effect without associatededema. The finding exhibits restriction typical for a meningioma. Noother space-occupying process. Doubt other extra-axial lesionsaccounting for the findings No acute vascular insult. No intracranial hemorrhage. Old vascularinsult in particular the left FLY territory. Chronic microvascularchanges elsewhere. Impression By: [email or web address] Zahira Viera M.D. Recent Impressions:MAGNETIC RESONANCE IMAGING - MRI BRAIN W/O CONTRAST 08/09 1107 Report Impression - Status: SIGNED Entered: 08/09/20181155 IMPRESSION: Findings likely reflective a small dural based meningioma centeredlaterally along the high convexity left frontal region measuring 2.1 x2.1 x 1.2 cm in size with minimal local mass effect without associatededema. The finding exhibits restriction typical for a meningioma. Noother space-occupying process. Doubt other extra-axial lesionsaccounting for the findings No acute vascular insult. No intracranial hemorrhage. Old vascularinsult in particular the left FLY territory. Chronic microvascularchanges elsewhere. Impression By: t.SDR.[email or web address] - Daina Willa Viera, M.D. Results: labs reviewed at 0927 RPT #: [id number] OF REPORT DSDischarge nodujmv8586-37-53F78:17:00L.[id number] ailable for patient pgvrLEDLNFZWAMYTIF1920-27-49X46:27:20 [facility] 2018-08-10 09:17:00 WPoffsgusvl10073120T hzAMyWxFzrGWF3DYL4QiY26JlwrgV eGu2/0EuBpcTzJDK8Mpmli3tUza3sJr/76099-02-52W85:17 :[address] [facility] [place], TXDischarge SummaryREPORT#:[id number] REPORT STATUS: SignedDATE:08/10/18 TIME:916 PATIENT: FRAN SANTAMARIA UNIT #: [id number]#: [id number] [address] [birth year] AGE: 67 SEX: M ATTEND: Cheikh Gutierrez MDADM AUTHOR: Jaydon Lester NP * ALL edits or amendments must be made on the electronic/computer document * Jaydon Lester NP 08/10/18 0917:PCP PCPPCP:PCP: DOES_NOT KNOW Discharge to: home with [place] health [facility] [place] General InformationDate of admission:Observation Start Date: 08/08/18Date of admission: 08/08/18 Date of discharge: 08/10/18Admission diagnosis:Generalized weaknessAcute kidney injuryHypertensionHyperlipidemiaAtrial fibrillationChronic left frontal stroke with history of multiple strokes in the pastLeft frontal meningiomaDischarge diagnosis:Generalized weaknessAcute kidney injuryHypertensionHyperlipidemiaAtrial fibrillationChronic left frontal stroke with history of multiple strokes in the pastLeft frontal meningiomaHospital course:Generalized weaknessAcute kidney injuryHypertensionHyperlipidemiaAtrial fibrillationChronic left frontal stroke with history of multiple strokes in the pastLeft frontal meningioma PlanWe will get an MRI to rule out any acute CVA and status of meningiomaMonitor renal parametersStart on IV fluidsNeurology consultContinue home medications and titrate as neededDiscussed with familyPossible DC in a.m. if workup is negativeGI/DVT prophylaxisAdvanced directive: Full code at 1809 08/10/18 pt requesting to be d/c home. stroke has been r/o. will get CM to ordered Home health PT/SNwill add pepcid 20 mg po bid on d/c d/c home was ok with Dr. Gutierrez. I have discussed the MRI results with Dr. Gutierrez and the pt. the pt reported he has had the meningioma for over 9-10 years. Pt. condition on discharge: improved, stableAllergies:Allergies:No Known Allergies (Coded, 08/08/18) Med Rec PCPPCP:PCP: DOES_NOT KNOW Med RecDischarge meds:Continue taking these medications:CITALOPRAM (CeleXA) 10 MG TAB 10 MILLIGRAM ORAL [...] 150 MILLIGRAM ORAL BEDTIME. as needed for INSOMNIA OMEGA-3 FATTY ACIDS (FISH OIL) 1,000 MG CAP 1,000 MILLIGRAM ORAL DAILY. Start taking the following new medications:FLUTICASONE PROPIONATE (FLONASE 50 MCG/ACT NASAL) 16 GM SPRAY 1 SPRAY NASAL TWICE DAILY. Days = 30 No Refills DOCUSATE SODIUM (COLACE) 100 MG CAP 100 MILLIGRAM ORAL EVERY 12 HR NEEDED. as needed for CONSTIPATION Days = 30 No Refills FAMOTIDINE (PEPCID) 20 MG TAB 20 MILLIGRAM ORAL TWICE DAILY. Days = 30 No Refills Discharge InstructionsDiet: cardiac, low fat, low sodiumWeight monitor: WeeklyNotify provider of these s/s:follow up with pcp in 1-4 days. you must call for an appointment. Prescriptions: on chartDischarge management: greater than 30 minsTime spent: Time spent with pt: 35 minutes or more ObjectiveVS/I OLast Documented: Result Date Time Pulse Ox 93 08/10 07 B/P 133/73 08/10 0704 B/P Mean 0.0 08/10 0704 Temp 98.2 08/10 0704 Pulse 63 08/10 0704 Resp 18 08/10 0704 O2 Delivery Room air 08/08 1927 24 hour I O ending at 0700: 08/10 0700 08/09 1900 Intake Total 300 Output Total 900 Balance -600 Intake, Oral 300 Output, Urine 900 Patient 94.347 kg Weight Weight Bed scale Measurement Method General appearance: alert, awake, oriented, no acute distress, pleasant, conversational, mental status normal, no respiratory distressHead/Eyes: atraumatic, EOMIENT: normal nose, moist mucosal membranesNeck: full range of motion, non-tender, supple/no meningismusCardiovascular: normal capillary refill, regular rate rhythm, normal heart soundsRespiratory: clear to auscultation, no distress, no tenderness, aerating wellGI: soft, non-tender, no distention Abdomen quadrants:LLQ normal bowel sounds, LUQ normal bowel sounds, RLQ normal bowel sounds, RUQ normal bowel soundsGenitourinary: not indicatedExtremities: moves all, no edema-all extremities, normal capillary refill, normal range of motion, normal sensory, normal motor function, no evidence of DVTMusculoskeletal: full range of motion, normal inspectionNeuro/OPAL MINER: alert, oriented X 3, normal gait, normal speech, no motor deficits, no sensory deficitsGlasgow Coma Score: Randolph Coma Score: Response Value Timothy eyes: eyes open spontaneously 4 Timothy speech: oriented 5 Timothy motor: obeys commands 6 Total 15 Skin: dry, intactPsychiatry: normal affect, normal judgment/insight, normal mood ResultsFindings/Data:Laboratory Tests: 08/10 08/10 08/09 08/09 08/09 0749 0415 2040 1611 1215Chemistry Sodium (134 - 147 mmol/L) 136 Potassium (3.4 - 5.0 mmol/L) 3.6 Chloride (100 - 108 mmol/L) 101 Carbon Dioxide (21 - 32 mmol/L) 26 Anion Gap (4.0 - 15.0 GAP calc) 9.0 BUN (7 - 18 MG/DL) 12 Creatinine (0.8 - 1.3 MG/DL) 0.9 Glomerular Filtr Rate (>60 >=60 max estimateestGFR) Glucose (70 - 110 MG/DL) 171 H POC Glucose (70 - 110 mg/dL) 191 H 199 H 219 H 185 H Calcium (8.5 - 10.1 MG/DL) 7.9 LHematology WBC (3.5 - 11.0 K/mm3) 6.5 RBC [...] (Auto) (20.5 - 51.1 %) 14.0 L Bailey % (Auto) (1.7 - 9.3 %) 11.1 H Eos % (Auto) (0.0 - 6.0 %) 8.9 H Baso % (Auto) (0.0 - 2.0 %) 0.5 Neut # (Auto) (1.8 - 7.6 K/mm3) 4.27 Lymph # (Auto) (0.6 - 3.0 0.9K/mm3) Bailey # (Auto) (0.2 - 1.5 K/mm3) 0.7 Eos # (Auto) (0.0 - 0.4 K/mm3) 0.6 H Baso # (Auto) (0.0 - 0.2 K/mm3) 0.0 Add Manual Diff (CRITERIA NODIFF/SCN) Radiology data:Recent Impressions:CAT SCAN - CT HEAD/BRAIN W/O CONT 08/08 2019 Report Impression - Status: SIGNED Entered: 08/08/20182038 IMPRESSION: No evidence of acute intracranial abnormality. Chronic infarcts within the left parietal and frontal lobes. Extra-axial lesion towards the vertex of the left frontal lobemeasuring 1.7 x 1.2 x 1.2 cm, likely related to a meningioma. If notpreviously assessed, recommend follow-up with an MRI brain without andwith contrast.Impression By: [email or web address] - Hua Anaya M.D.RADIOLOGY - XR CHEST 1 V 08/08 2025 Report Impression - Status: SIGNED Entered: 08/08/20182037 IMPRESSION: Unremarkable portable examination of the chest.Impression By: CostaRLA2 - Olegario Omalley M.D.MAGNETIC RESONANCE IMAGING - MRI BRAIN W/O CONTRAST 08/09 1107 Report Impression - Status: SIGNED Entered: 08/09/20186 IMPRESSION: Findings likely reflective a small dural based meningioma centeredlaterally along the high convexity left frontal region measuring 2.1 x2.1 x 1.2 cm in size with minimal local mass effect without associatededema. The finding exhibits restriction typical for a meningioma. Noother space-occupying process. Doubt other extra-axial lesionsaccounting for the findings No acute vascular insult. No intracranial hemorrhage. Old vascularinsult in particular the left FLY territory. Chronic microvascularchanges elsewhere. Impression By: [email or web address] - Daina Viera M.D. Recent Impressions:MAGNETIC RESONANCE IMAGING - MRI BRAIN W/O CONTRAST 08/09 1107 Report Impression - Status: SIGNED Entered: 08/09/2018 1156 IMPRESSION: Findings likely reflective a small dural based meningioma centeredlaterally along the high convexity left frontal region measuring 2.1 x2.1 x 1.2 cm in size with minimal local mass effect without associatededema. The finding exhibits restriction typical for a meningioma. Noother space-occupying process. Doubt other extra-axial lesionsaccounting for the findings No acute vascular insult. No intracranial hemorrhage. Old vascularinsult in particular the left FLY territory. Chronic microvascularchanges elsewhere. Impression By: Wang Viera M.D. Results: labs reviewed at 0927 at 1656 RPT #: [id number] OF REPORT DSDischarge dfpqjah7321-55-42K91:17:00L.[id number] ailable for patient omywWRTLPRMHNLMFUS0821-02-11N36:56:07 [facility] 2018-08-09 12:06:00 AMunabzyyuv6862148Tn 7603DaKb+SLAZd1mNLYnGN8xrJrAJ zJYy1E4uAUWhOwQhK/hxMB+Q8KgbqCTFn9031-13-22F29:06 :00 [facility])Neurology Consultation NoteREPORT#:[id number] REPORT STATUS: SignedDATE:08/09/18 TIME:1206 PATIENT: FRAN SANTAMARIA UNIT #: [id number]#: [id number] [facility]DOB: [birth year] AGE: 67 SEX: M ATTEND: Cheikh Gutierrez MDADM AUTHOR: Romy Marie MD * ALL edits or amendments must be made on the electronic/computer document * History of Present Illness Stroke AlertConsidered stroke alert: no HPIRequesting clinician: Dr Cuello for consult:weaknessChief complaint:weaknessHPI:The patient Mr. Santamaria is a 67 years old left-handed male with a pastmedical history of hypertension, diabetes mellitus, atrial fibrillation, historyof multiple strokes (reportedly 5 stroke last one around 2 years ago) with residual right-sided weakness, baseline gait impairment requiring walker for assistance reportedly had episode of fall few days ago. Reportedly he has been experiencing sore throat and fever for past 3-4 days. He was feeling weak all over however he denies any focal weakness. Patient has history of left frontal meningioma that was found around 5 years ago. No facial droop. No speech abnormality. Patient admits to having uncontrolled blood sugars. Patient was also found to have acute renal failure on admission. No speech abnormality. Noheadaches. No vision changes. No new numbness or weakness. He reports feelingweak all over. History - Adult longitudinalPast medical history:Reports: Atrial fib/flutter, Diabetes mellitus, Hypertension, Ischemic stroke (5). 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 Review of SystemsSystems reviewed negative: allergy/Immun, cardiovascular, constitutional, endocrine, ENT, eyes, GI, , heme, musculoskeletal, neuro, psych, respiratory, skin Objective Physical ExamVS:Last Documented: Result Date Time Pulse Ox 95 08/09 07 B/P 130/72 08/09 0735 B/P Mean 91.1 08/09 0735 Temp 36.9 08/09 0735 Pulse 61 08/09 07 Resp 18 08/09 0735 O2 Delivery Room air 08/08 1927 Medications:Current Home MedicationsCITALOPRAM (CeleXA) 10 MG PO DAILY HYDROCHLOROTHIAZIDE (HCTZ) [...] BID KETOCONAZOLE (NIZORAL 2%) 1 APPLIC TOPICAL MOWEFR KETOCONAZOLE (NIZORAL 2%) 1 APPLIC TOPICAL DAILY traZODone (DESYREL) 150 MG PO BEDTIME PRN INSOMNIA OMEGA-3 FATTY ACIDS (FISH OIL) 1,000 MG PO DAILY Active Meds + DC'd Last 24 HrsTrazodone HCl 150 MG BEDTIME PO (CKD) Atorvastatin [...] Al Hydrox/Mg Hydrox/Simethicone 30 ML ONCE PO (DC) Trazodone HCl 150 MG BEDTIME PRN PO Acetaminophen 650 MG Q4H PRN PRN PO Docusate Sodium 100 MG Q12H PRN PRN PO Hydrocodone Bitart/Acetaminophen 1 TAB Q4H PRN PRN PO Hydrocodone Bitart/Acetaminophen 1 TAB Q4H PRN PRN PO Ondansetron HCl 4 MG Q4H PRN PRN IV Acetaminophen 650 MG X1ED STA PO (DC) Guaifenesin 200 MG X1ED STA PO (DC) General appearance: alert, awake, oriented, no acute distressHead/Eyes: atraumatic, clear corneaENT: moist mucosal membranesNeck: full range of motionCardiovascular: irregular rate and rhythmRespiratory: aerating well, no distressExtremities: moves all, pulses present, no edemaMusculoskeletal: full range of motion SpeechSpeech: normal Mental StatusOrientation:Yes: to time, to place, to person, to situation. LOC: alert Cranial NervesCranial nerves:Normal: II, III, IV, V, , VII, VIII, IX, X, XI, XII. Sensory ExamSensory:Normal: light touch. Motor TestingMotor testing 1:Normal: bulk, tone, fine movements, strength. Cerebellar TestCerebellar test:Normal R finger/nose/finger, Normal L finger/nose/finger, Normal R heel/knee/ramirez, Normal L heel/knee/ramirez, Normal R alt rapid movement, Normal L alt rapid movement ReflexesPlantar reflexes:Up: Right. GaitGait comments:walks with a walker ResultsFindings/Data:Laboratory Tests 08/09 08/08 08/08 3129 3375 2008 Chemistry Sodium (134 - 147 mmol/L) [...] (Auto) (20.5 - 51.1 %) 4.8 L Bailey % (Auto) (1.7 - 9.3 %) 8.6 Eos % (Auto) (0.0 - 6.0 %) 1.0 Baso % (Auto) (0.0 - 2.0 %) 0.3 Neut # (Auto) (1.8 - 7.6 K/mm3) 10.02 H Lymph # (Auto) (0.6 - 3.0 K/mm3) 0.6 Bailey # (Auto) (0.2 - 1.5 K/mm3) 1.0 Eos # (Auto) (0.0 - 0.4 K/mm3) 0.1 Baso # (Auto) (0.0 - 0.2 K/mm3) 0.0 Add Manual Diff (CRITERIA DIFF/SCN) NO Radiology Data:Recent Impressions:CAT SCAN - CT HEAD/BRAIN W/O CONT 08/08 2019 Report Impression - Status: SIGNED Entered: 08/08/20182038 IMPRESSION: No evidence of acute intracranial abnormality. Chronic infarcts within the left parietal and frontal lobes. Extra-axial lesion towards the vertex of the left frontal lobemeasuring 1.7 x 1.2 x 1.2 cm, likely related to a meningioma. If notpreviously assessed, recommend follow-up with an MRI brain without andwith contrast.Impression By: [email or web address] - Hua Anaya M.D.RADIOLOGY - XR CHEST 1 V 08/08 2025 Report Impression - Status: SIGNED Entered: 08/08/20182037 IMPRESSION: Unremarkable portable examination of the chest.Impression By: [email or web address] - Olegario Omalley M.D.MAGNETIC RESONANCE IMAGING - MRI BRAIN W/O CONTRAST 08/09 1108 Report Impression - Status: SIGNED Entered: 08/09/2018 1156 IMPRESSION: Findings likely reflective a small dural based meningioma centeredlaterally along the high convexity left frontal region measuring 2.1 x2.1 x 1.2 cm in size with minimal local mass effect without associatededema. The finding exhibits restriction typical for a meningioma. Noother space-occupying process. Doubt other extra-axial lesionsaccounting for the findings No acute vascular insult. No intracranial hemorrhage. Old vascularinsult in particular the left FLY territory. Chronic microvascularchanges elsewhere. Impression By: Wang - Daina Viera M.D. Results: labs reviewed, vital signs stable, CT personally reviewed, MRI personally reviewed, current med profile rev'd Diagnosis, Assessment PlanFree Text A P:1. weakness - Possible recrudescence of stroke symptoms in setting of acute renal failure, uncontrolled hyperglycemia, recent URTI2. Hypertension3. Diabetes mellitus4. Atrial fibrillation5. Acute renal failure6. Chronic left frontal stroke/reported history of multiple strokes7. Recent URTI8. Left frontal meningioma PLAN:Telemetry.Reviewed CT scan of head and MRI brain images.Continue with current medications.Check fasting lipid profile.Advised better hydration.IV fluids per primary team.PT and OT evaluation.Fall precautions.DVT prophylaxis.Neurology to follow. Plan was discussed with the patient and primary team. Thank you very much for the consult. at 1758 RPT #: [id number] OF REPORT BPHnlpxzqwuqvw0004-34-81L90:06:00L.[id number] 069AVAvailable for patient zldcQCWKHGTNQYLOCL9178-57-00U52:58:23 [facility] 2018-08-09 09:35:00 [id number] uZMPOUKwbbE10LaBWFDm2G2AGT7Ca ZOAFQzREUU/fkBgSz+O/h55uJdxuE9UJu5783-68-09B05:35 :00 [facility] ([facility])History Physical - AdultREPORT#:[id number] REPORT STATUS: SignedDATE:08/09/18 TIME:934 PATIENT: FRAN SANTAMARIA UNIT #: [id number]#: [id number] ROOM/BED: 304-1DOB: [birth year] AGE: 67 SEX: M ATTEND: Cheikh Gutierrez AUTHOR: Cheikh Gutierrez MD * ALL edits or amendments must be made on the electronic/computer document * History of Present Illness HPIChief complaint:Seizure HPI:67yo WM with PMH of HTN, DM, AFib, and CVA (with residual R leg weakness) s/p fall. Preceded by worsening RLE weakness. Also with sore throat and productive cough x 4 days. No exacerbating or alleviating factors. Of note, Pt states that both legs "gave out" 6 weeks ago and was unable to walk; was not sent to ER forevaluation at that time. Denies pain, back pain, n/v, dizziness, numbness, tingling and SOB. HistoryPast medical history:Reports: Atrial fib/flutter, Diabetes mellitus, Hypertension, Ischemic stroke (5). Additional surgical history:No previous PSHFamily history:Reports: Hypertension. 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 status: Independent Review of SystemsAdditional notes:All the 14 point review systems negative except for those mentioned H Physical ExamVS/I OVital Signs: Date Time Temp Pulse Resp B/P B/P Pulse O2 O2 Flow FiO2 Mean Ox Delivery Rate 08/09 0735 98.4 61 18 130/72 91.1 95 08/09 [...] Bed scale Measurement Method General appearance: alert, awakeHead/Eyes: atraumatic, normocephalicENT: dry mucosal membraneNeck: supple/no meningismusCardiovascular: regular rate rhythm, normal heart soundsRespiratory: aerating well, symmetric expansionAbdomen/GI: soft, no mass/organomegalyGenitourinary: no bladder distensionExtremities: decreased range of motion, no peripheral edemaMusculoskeletal: decreased ROMNeuro/OPAL MINER: alertSkin: dry, no rashLymphatic: no lymphadenopathy ResultsFindings/Data:Laboratory Tests: 08/0905 7072008 Chemistry Sodium (134 - 147 mmol/L) 135 [...] (Auto) (20.5 - 51.1 %) 4.8 L Bailey % (Auto) (1.7 - 9.3 %) 8.6 Eos % (Auto) (0.0 - 6.0 %) 1.0 Baso % (Auto) (0.0 - 2.0 %) 0.3 Neut # (Auto) (1.8 - 7.6 K/mm3) 10.02 H Lymph # (Auto) (0.6 - 3.0 K/mm3) 0.6 Bailey # (Auto) (0.2 - 1.5 K/mm3) 1.0 Eos # (Auto) (0.0 - 0.4 K/mm3) 0.1 Baso # (Auto) (0.0 - 0.2 K/mm3) 0.0 Add Manual Diff (CRITERIA DIFF/SCN) NO Radiology data:Recent Impressions:CAT SCAN - CT HEAD/BRAIN W/O CONT 08/08 2019 Report Impression - Status: SIGNED Entered: 08/08/20182038 IMPRESSION: No evidence of acute intracranial abnormality. Chronic infarcts within the left parietal and frontal lobes. Extra-axial lesion towards the vertex of the left frontal lobemeasuring 1.7 x 1.2 x 1.2 cm, likely related to a meningioma. If notpreviously assessed, recommend follow-up with an MRI brain without andwith contrast.Impression By: [email or web address] - Hua Anaya M.D.RADIOLOGY - XR CHEST 1 V 08/08 2025 Report Impression - Status: SIGNED Entered: 08/08/20182037 IMPRESSION: Unremarkable portable examination of the chest.Impression By: [email or web address] - Olegario Omalley M.D. Diagnosis, Assessment PlanFree Text A P:Generalized weaknessAcute kidney injuryHypertensionHyperlipidemiaAtrial fibrillationChronic left frontal stroke with history of multiple strokes in the pastLeft frontal meningioma PlanWe will get an MRI to rule out any acute CVA and status of meningiomaMonitor renal parametersStart on IV fluidsNeurology consultContinue home medications and titrate as neededDiscussed with familyPossible DC in a.m. if workup is negativeGI/DVT prophylaxisAdvanced directive: Full code at 1809 RPT #: [id number] OF REPORT HPHistory and physical fkzczlwvciu5973-69-48U35:35:00L.[id number] AVAvailable for patient zgvpVQCSPGIJGCPEUF7405-21-34S88:09:03 [facility] 2018-08-08 19:56:00 [id number] 7oTQfgOS1MiVIGOtaUDWiT9mHGFIL /[id number]/6pH8026-76-30V20:56 :00 [facility])EMERGENCY PROVIDER REPORTREPORT#:[id number] REPORT STATUS: SignedDATE:08/08/18 TIME:1955 PATIENT: FRAN SANTAMARIA UNIT #: [id number]#: [id number] [address] [birth year] AGE: 67 SEX: M PCP PHYS: DOES_NOT KNOWSERVICE AUTHOR: Crissy Anders MD * ALL edits or amendments must be made on the electronic/computer document * HPI-Trauma Minor/Fall GeneralConfirmed Patient YesPatient Type New patientInitial Greet Date/Time 08/08/181928 PresentationChief Complaint FallHx Obtained From PatientOnset Occurred TodaySymptom Duration Since onsetProgression since Onset ResolvedCaused by AccidentalTiming of Trauma Date of Trauma 08/08/18 Time of Trauma 1700Context: Occurred at Home injurySeverity: Current No pain currentlyAssociated Other productive cough and sore throatExacerbated by Nothing ContextImmunization Status General UnknownRecent Healthcare No recent doctor visit, No recent hospitalizationSimilar Sx Previous Yes (6 weeks prior) Free Text HPI NotesFree Text HPI Pcopt21cf WM with PMH of HTN, DM, AFib, and CVA (with residual R leg weakness) s/p fall. Preceded by worsening RLE weakness. Also with sore throat and productive cough x 4 days. No exacerbating or alleviating factors. Of note, Pt states that both legs "gave out" 6 weeks ago and was unable to walk; was not sent to ER forevaluation at that time. Denies pain, back pain, n/v, dizziness, numbness, tingling and SOB. Portions of this section were scribed by Cecile Pruett on 08/08/18 at 2144 Review of Systems ROS StatementsAll systems rev neg except as marked. Focused Review of SystemsConstitutionalDenies: Chills, Fever. EyesDenies: Blurred bilat, Visual loss bilat. Ears/Nose/ThroatReports: Sore throat. Denies: Earache bilat. RespiratoryReports: Cough, productive. Denies: Cough, non-productive, Dyspnea on exertion,Shortness of breath. MusculoskeletalDenies: Back pain, Extremity pain, Joint pain, Lumbar pain, Myalgia, Neck pain, Thoracic pain. SkinDenies: Rash, Swelling. NeurologicReports: Focal weakness (right LE ). Denies: Numbness, Tingling. Additional Review of SystemsCardiovascularDenies: Chest pain, Dyspnea on exertion, Edema. GIDenies: Abdominal pain, Constipation, Diarrhea, Nausea, Vomiting. MaleDenies: Dysuria, Hematuria. HematologicDenies: Bleeding, Bruising. Allergy/ImmunDenies: Hives, Itching, Rhinorrhea. Portions of this section were scribed by Cecile Pruett on 08/08/18 at 2014 Past Medical History - AdultStated Complaint FALLAllergiesCoded Allergies:No Known Allergies (08/08/18) Home MedicationsReported MedicationsUnable to Obtain Home Medication History Review of Nursing Notes Rev avail, and agreePt reports no significant: Past surgical historyPast Medical History:Reports: Atrial fib/flutter, Diabetes mellitus, Hypertension, Ischemic stroke (5). 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 Status Independent Portions of this section were scribed by Cecile Pruett on 08/08/18 at 1956 Physical Exam Vital SignsVital SignsFirst Documented: Result Date Time Pulse Ox 97 [...] 1927 Review of Vital Signs Reviewed Focused PEGeneral/Const General/Const Awake, Alert, No acute distress, Well appearing, CooperativeMS Head Head Atraumatic, NormocephalicEyes Eyes Atraumatic, PERRL, EOMI, No nystagmusEars/Nose/Throat Ears/Nose/Throat Atraumatic, Airway patent, Mucous membranes moistMS Neck Neck Atraumatic, Supple, No meningismusResp/Chest Respiratory/Chest Atraumatic, Breath sounds NL, Breath sounds = bilat, No respiratory distress, No rales, No rhonchi, No wheezingCardiovascular Cardiovascular Heart rate NL, Regular rhythm, Heart sounds NL, No gallop, No murmurs, No rubsAbdomen/GI Abdomen/GI Atraumatic, Soft, Non-tender, No guarding, No reboundMS Back Back Atraumatic, Inspection NL, Full range of motion, Painless range of motion, Non-tenderMS Lower Extrem Lower Ext/Pelvis/MS Atraumatic, Inspection NL, Full range of motion, No swelling, Non-tender, No erythema, No deformitySkin Skin Atraumatic, Color NL, Warm, Dry, IntactNeurologic Neurologic Oriented X3, Speech NL, No motor deficits, No sensory deficits Portions of this section were scribed by Cecile Pruett on 08/08/18 at 2144 Interpretation Diagnostics Lab Results InterpretationResultsLaboratory Tests 08/08/182008:[Embedded Image Not Available]Laboratory Tests: 08/08 2008 Chemistry Sodium (134 - [...] (Auto) (20.5 - 51.1 %) 4.8 L Bailey % (Auto) (1.7 - 9.3 %) 8.6 Eos % (Auto) (0.0 - 6.0 %) 1.0 Baso % (Auto) (0.0 - 2.0 %) 0.3 Neut # (Auto) (1.8 - 7.6 K/mm3) 10.02 H Lymph # (Auto) (0.6 - 3.0 K/mm3) 0.6 Bailey # (Auto) (0.2 - 1.5 K/mm3) 1.0 Eos # (Auto) (0.0 - 0.4 K/mm3) 0.1 Baso # (Auto) (0.0 - 0.2 K/mm3) 0.0 Add Manual Diff (CRITERIA DIFF/SCN) NO Microbiology: Date/Time Procedure - Status Source Growth 08/08 2151 MRSA Screen - ORD NASAL Recent Impressions:CAT SCAN - CT HEAD/BRAIN W/O CONT 08/08 2019 Report Impression - Status: SIGNED Entered: 08/08/20182038 IMPRESSION: No evidence of acute intracranial abnormality. Chronic infarcts within the left parietal and frontal lobes. Extra-axial lesion towards the vertex of the left frontal lobemeasuring 1.7 x 1.2 x 1.2 cm, likely related to a meningioma. If notpreviously assessed, recommend follow-up with an MRI brain without andwith contrast.Impression By: [email or web address] - Hua Anaya M.D.RADIOLOGY - XR CHEST 1 V 08/08 2025 Report Impression - Status: SIGNED Entered: 08/08/20182037 IMPRESSION: Unremarkable portable examination of the chest.Impression By: [email or web address] - Olegario Omalley M.D. Lab Imaging StatementLaboratory radiographic studies reviewed and considered in the medical decision-making. Point of Care TestingPulse Oximetry Pulse Ox % 97 On: Room air Interpretation Interpreted by id Time 1928 ECG #1 InterpretationECG Documented in MUSE YesDate 08/08/18Time 1935Interpreted by ED physicianNL ECG Interpretation Normal rate, Normal sinus rhythm, No STEMI, Normal axisRate 88Conduction/Washta RBBB - incomplete Portions of this section were scribed by Cecile Pruett on 08/08/18 at 2144 Re-Evaluation MDM Free Text MDM NotesFree Text MDM NotesA/P: 67yo WM with PMH as above p/w RLE weakness and fall1. Labs2. CT-head3. CXR4. Meds5. Re-assessADDENDUMTime: Pt re-assessed; symptoms improved. Results of work-up d/w Pt; voiced understanding. OK for DC home with PCP follow-up. Re-Evaluation/Progress #1Time of Re-Eval 2124Re-Eval Status ImprovedPlan Post Re-Eval Plan admit ED CourseMedication(s) OrderedMedication(s) Ordered:Central Nervous System Agents Sig/Manuel Start time Last Medication Dose Route Stop Time Status Admin Acetaminophen 650 MG Q4H PRN PRN 08/08 2200 AC PO 09/07 2158 Hydrocodone Bitart/ 1 TAB Q4H PRN PRN 08/080 AC Acetaminophen PO 08/18 2158 Hydrocodone Bitart/ 1 TAB Q4H PRN PRN 08/08 2200 AC Acetaminophen PO 08/18 2158 Acetaminophen 650 MG X1ED STA 08/08 2125 DC 08/08 PO 08/08 Gastrointestinal Drugs Sig/Manuel Start time Last Medication Dose Route Stop Time Status Admin Docusate Sodium 100 MG Q12H PRN PRN 08/08 2200 AC PO 09/07 2158 Ondansetron HCl 4 MG Q4H PRN PRN 08/08 2200 AC IV 09/07 2158 Respiratory Tract Agents Sig/Manuel Start time Last Medication Dose Route Stop Time Status Admin Guaifenesin 200 MG X1ED STA 08/08 2012 DC 08/08 PO 08/08 Differential DiagnosisDifferential Diagnosis TIA, Mechanical Fall Portions of this section were scribed by Cecile Pruett on 08/08/18 at 2144 Patient Discharge Departure Vital Signs/ConditionVital SignsFirst Documented: Result Date Time Pulse Ox 97 08/08 1927 B/P 141/65 08/08 1927 B/P Mean 90 08/08 1927 O2 Delivery Room air 08/08 1927 Temp 100.4 08/08 1927 Pulse 87 08/08 1927 Resp 08/08 Last Documented: Result Date Time Pulse Ox 97 08/08 1927 B/P 141/65 08/08 1927 B/P Mean 90 08/08 1927 O2 Delivery Room air 08/08 1927 Temp 100.4 08/08 1927 Pulse 87 08/08 1927 Resp 08/08 All vital signs available at the time of this entry have been reviewed. Condition Stable Clinical ImpressionClinical ImpressionPrimary Impression: TIA (transient ischemic attack)Secondary Impressions: Fall, Right leg weakness Disposition DecisionAdmit Admit Physician Name Cheikh Gutierrez MD Admit Physician Hospitalist Request Time 2125 Request Date 08/08/18 )( Admission Accepts Yes )( Accepted Time 2125 )( Accepted Date 08/08/18 Call Information will see patient Discharge/Care PlanCounseled Regarding Diagnosis, Lab results, Imaging studies, Need for admission Admit NoteI have spoken with the patient and/or caregivers. I have explained the patient'scondition, diagnoses and treatment plan based on the information available to meat this time. I have answered the patient's and/or caregiver's questions and addressed any concerns. The patient and/or caregivers have as good an understanding of the patient's diagnosis, condition and treatment plan as can beexpected at this point. The patient has been stabilized within the capability ofthe emergency department. The patient will be transported for further care and management or will be moved to an observation or inpatient service. I have communicated with the staff or medical practitioner taking over this patient's care. Quality MeasuresBP F/U for HTN Pre-existing HTNSmoking Cessation Screened, tobacco user, Screened, non user Supervising Physician Note Scribe StatementCecile Pruett, 08/08/181955, scribing for and in the presence of [Dr. Anders].Signed By: Cecile Pruett, 08/08/181955 Provider Scribed StatementI personally performed the services described in this documentation and reviewedthe documentation that was dictated to the scribe(s) in my presence, and it accurately records my words and actions. Crissy Anders, 08/08/18 Portions of this section were scribed by Cecile Pruett on 08/08/18 at 2144 at 2336 RPT #: [id number] OF REPORTMemorial Hermann [facility] department ttnoiq1574-67-99X60:56:00L.[id number] ilable for patient trhuPMSJWEZFTZATML6089-79-92Q84:36:23 [facility] 2018-08-08 19:30:00 [id number] 62f2ZmbayWCzadxv1qboe7HfrNlAB hd3MCuHUDbdyknHwndjDbmock3HbiFjp0863-34-24D43:30 :[id number] [address] PATIENT NAME: FRAN SANTAMARIA ADMIT DATE: 08/08/18ACCOUNT NO: [id number] ROOM NO: [facility] AGE: 67 REPORT TYPE: eELECTROCARDIOGRAM SEX: M ADMITTING PHYSICIAN: Cheikh Gutierrez MD ATTENDING PHYSICIAN: Cheikh Gutierrez MD Order:[id number] Reason : (Not Selected) Test Date/Time Stamp:SatAug 08 2018 19:30:24Blood Pressure : 128/080 mmHGVent. Rate : 088 BPM Atrial Rate : 091 BPM P-R Int : 000 ms QRS Dur : 100 ms QT Int : 376 ms P-R-T Axes : 000 -03 006 degrees QTc Int : 454 ms Normal sinus rhythmIncomplete right bundle branch blockBorderline ECGNo previous ECGs availableConfirmed by AMANDA BONNER MD ([id number]) on 08/12/2018 3:34:46 PM Referred By: Self Referred Confirmed by:AMANDA BONNER MD at 5105 PATIENT NAME: FRAN SANTAMARIA .[id number] AVAvailable for patient rvlaVBXSHKBGXZWYVX7795-50-81H00:34:31 [facility]
[2023-07-18 16:31] LABS: Absolute Lymphocytes (CBC) 0.5 K/uL (0.7-4.9); Hematocrit 22.9 % (39.6-49.0); Lymphocytes % 8.9 % (15.3-44.8); MCV 71.8 fL (80-100); MPV 7.7 fL (7.6-11.3); Platelets 151 thou/uL (152-406); RBC Red Blood Cell Count 3.19 M/uL (4.33-5.43)
[2023-07-18 16:42] LABS: Protime INR 1.71
[2023-07-18 16:51] LABS: Albumin 2.3 g/dL (3.4-5.0); Bilirubin Direct 0.1 mg/dL (0-0.2); Bilirubin Indirect, Calculated 0.2 mg/dL (0.2-0.8); Bilirubin Total 0.3 mg/dL (0.2-1.0); Magnesium 1.7 mg/dL (1.6-2.4); Potassium 4.6 mEq/L (3.5-5.1); Protein, Total 6.6 g/dL (6.4-8.2); Troponin High Sensitivity 26.4 pg/mL (<58.9)
--- NOTE | 2023-07-18 17:23 | RAD REPORT ---
EXAM DESCRIPTION: Bonnie Single View07/18/2023 4:23 pm CLINICAL HISTORY: Hypertension COMPARISON: December 2022 FINDINGS: Mild chronic appearing interstitial lung opacities The lungs appear clear of acute infiltrate. The heart is normal size IMPRESSION: No acute abnormalities displayed
--- NOTE | 2023-07-18 18:44 | EDPHYS ---
Physician Documentation [facility] Name: Luis Antonio Santamaria Age: 72 yrs Sex: Male : 1950 Arrival Date: 07/18/2023 Time: 15:47 Bed 17 Private MD: ED Physician Arnulfo Mendez HPI: 07/18 16:00 This 72 yrs old Male presents to ER via EMS with complaints of Anemia. cp 16:00 Patient is a 72-year-old male with past medical history significant for hypertension, cp hyperlipidemia who resides in a long-term care facility and was transferred to the emergency department via EMS with concern for anemia. Patient reports having recent blood work that showed his hemoglobin was low and so he was sent to the emergency room for evaluation. Patient with a history of stroke and so he has left-sided weakness, patient denies any change. 17:10 No black tarry stools, no blood in stools. cp Historical: - Allergies: 15:51 No Known Allergies; cp4 - PMHx: 15:51 BRAIN TUMOR; CVA x4; Hyperlipidemia; Hypertension; Myocardial infarction; PVD; cp4 - Immunization history:: Adult Immunizations up to date. - Social history:: Smoking status: Patient denies any tobacco usage or history of. ROS: 16:05 Constitutional: Negative for body aches, chills, fever, poor PO intake, cp 16:05 Eyes: Negative for injury, pain, redness, and discharge, cp 16:05 ENT: Negative for drainage from ear(s), ear pain, sore throat, difficulty swallowing, difficulty handling secretions, 16:05 Cardiovascular: Negative for chest pain, edema, palpitations, 16:05 Respiratory: Negative for shortness of breath, wheezing, 16:05 Abdomen/GI: Negative for abdominal pain, vomiting, diarrhea, constipation, anorexia, 16:05 Neuro: Negative for altered mental status, headache, loss of consciousness, syncope, weakness, 16:05 All other systems are negative, Exam: 16:10 Constitutional: The patient appears in no acute distress, alert, awake, cp non-diaphoretic, well developed, frail, 16:10 Head/Face: Normocephalic, atraumatic. cp 16:10 Eyes: Periorbital structures: appear normal, Conjunctiva: normal, no exudate, no injection, Sclera: no appreciated abnormality, Lids and lashes: appear normal, bilaterally, 16:10 ENT: External ear(s): are unremarkable, Nose: is normal, Mouth: Lips: moist, Oral mucosa: moist, Posterior pharynx: Airway: no evidence of obstruction, patent, 16:10 Chest/axilla: Inspection: normal, Palpation: is normal, no crepitus, no tenderness, 16:10 Cardiovascular: Rate: normal, Rhythm: regular, Edema: is not appreciated, JVD: is not appreciated, 16:10 Respiratory: the patient does not display signs of respiratory distress, Respirations: normal, no use of accessory muscles, no retractions, labored breathing, is not present, Breath sounds: are clear throughout, no decreased breath sounds, no stridor, no wheezing, 16:10 Abdomen/GI: Inspection: abdomen appears normal, Palpation: abdomen is soft and non-tender, in all quadrants, 16:10 Neuro: Orientation: to person, place \T\ time. Mentation: is normal, Motor: moves all fours, strength is normal, Sensation: is normal, 17:35 ECG was reviewed by the Attending Physician. Vital Signs: 15:50 BP 121 / 72; Pulse 88; Resp 18; Temp 98.2; Pulse Ox 96% ; cp4 16:00 BP 113 / 47; Pulse 72; Resp 18; Pulse Ox 100% ; cp4 17:00 BP 112 / 64; Pulse 78; Resp 18; Pulse Ox 100% ; cp4 18:00 BP 127 / 42; Pulse 72; Resp 18; Pulse Ox 100% ; cp4 19:00 BP 94 / 67; Pulse 71; Resp 17 S; Pulse Ox 99% on R/A; jw7 MDM: 15:51 Patient medically screened. 18:42 Data reviewed: vital signs, nurses notes, lab test result(s), EKG, radiologic studies, cp plain films. 18:42 Differential diagnosis: sepsis, chronic anemia, electrolyte abnormality, cardiac cp arrhythmia, GI bleed. Counseling: I had a detailed discussion with the patient and/or guardian regarding the historical points, exam findings, and any diagnostic results supporting the discharge/admit diagnosis, lab results, radiology results, to return to the emergency department if symptoms worsen or persist or if there are any questions or concerns that arise at home. 07/18 15:57 Order name: Basic Metabolic Panel; Complete Time: 17:00 cp 07/18 17:00 Interpretation: Normal except: NA 132; GLUC 107; BUN 21; CA 8.2. cp 07/18 15:57 Order name: CBC with Diff; Complete Time: 16:45 cp 07/18 16:45 Interpretation: Normal except: RBC 3.19; HGB 7.4; HCT 22.9; MCV 71.8; MCH 23.0; PLT cp 151; RDW 18.3; PETTY% 78.8; LYM% 8.9; LYMA 0.5. 07/18 15:57 Order name: LFT's; Complete Time: 17:00 cp 07/18 17:00 Interpretation: Normal except: ALB 2.3; GLOB 4.3; A/G 0.5. cp 07/18 15:57 Order name: Magnesium; Complete Time: 17:00 cp 07/18 15:57 Order name: NT PRO-BNP; Complete Time: 17:00 cp 07/18 17:00 Interpretation: Abnormal: NT PRO-BNP 5743. 07/18 15:57 Order name: PT-INR; Complete Time: 16:45 cp 07/18 17:01 Interpretation: Reviewed. 07/18 15:57 Order name: Troponin HS; Complete Time: 17:00 cp 07/18 15:57 Order name: Ptt, Activated; Complete Time: 16:45 cp 07/18 15:57 Order name: XRAY Chest (1 view); Complete Time: 17:41 cp 07/18 17:43 Interpretation: Report review. cp 07/18 15:57 Order name: EKG; Complete Time: 15:58 cp 07/18 15:57 Order name: Cardiac monitoring; Complete Time: 16:11 cp 07/18 15:57 Order name: EKG - Nurse/Tech; Complete Time: 17:48 cp 07/18 15:57 Order name: IV Saline Lock; Complete Time: 16:21 cp 07/18 15:57 Order name: Labs collected and sent; Complete Time: 18:52 cp 07/18 15:57 Order name: O2 Per Protocol; Complete Time: 16:11 cp 07/18 15:57 Order name: O2 Sat Monitoring; Complete Time: 16:11 cp EC:35 Rhythm is irregular. QRS interval is prolonged at 102 msec. QT interval is normal. cp Clinical impression: Abnormal EKG without significant change. Interpreted by me. Reviewed by me. Administered Medications: No medications were administered Disposition Summary: 07/18/23 18:43 Discharge Ordered Notes: Location: Home cp Problem: chronic cp Symptoms: have improved cp Condition: Stable cp Diagnosis - Anemia in other chronic diseases classified elsewhere cp - Unspecified atrial flutter - chronic(07/18/23 18:47) cp Followup: cp - With: Private Physician - When: 2 - 3 days - Reason: Recheck today's complaints Discharge Instructions: - Discharge Summary Sheet cp - Anemia cp - Atrial Flutter cp Forms: - Medication Reconciliation Form cp - Thank You Letter cp - Antibiotic Education cp - Prescription Opioid Use cp - Patient Portal Instructions cp - Leadership Thank You Letter cp Signatures: Dispatcher [employer] EDMS Arnulfo Dudley PA PA cp Potter, Christina cp4 Corrections: (The following items were deleted from the chart) 18:47 18:46 Unspecified atrial flutter cp cp 18:51 17:16 Bladder Scanner ordered. cp cp4
--- NOTE | 2023-07-18 18:44 | ER ---
Nurse's Notes [facility] Name: Luis Antonio Santamaria Age: 72 yrs Sex: Male : 1950 Arrival Date: 07/18/2023 Time: 15:47 Bed 17 Private MD: Diagnosis: Anemia in other chronic diseases classified elsewhere;Unspecified atrial flutter-chronic Presentation: 07/18 15:50 Chief complaint: EMS states: critical lab values. EMS states anemia, hyponutremia, cp4 failure to gain weight. Patient is from assisted living. Coronavirus screen: Client denies travel out of the [place] in the last 14 days. At this time, the client does not indicate any symptoms associated with coronavirus-19. Ebola Screen: Patient negative for fever greater than or equal to 101.5 degrees Fahrenheit, and additional compatible Ebola Virus Disease symptoms Patient denies exposure to infectious person. Patient denies travel to an Ebola-affected area in the 21 days before illness onset. No symptoms or risks identified at this time. Initial Sepsis Screen: Does the patient meet any 2 criteria? No. Patient's initial sepsis screen is negative. Does the patient have a suspected source of infection? No. Patient's initial sepsis screen is negative. Risk Assessment: Do you want to hurt yourself or someone else? Patient reports no desire to harm self or others. Onset of symptoms was July 18, 2023. 15:50 Method Of Arrival: EMS: [facility] cp4 15:50 Acuity: DYLON 3 cp4 Triage Assessment: 15:51 General: Appears in no apparent distress. Behavior is calm, cooperative, appropriate cp4 for age. Pain: Denies pain. Historical: - Allergies: 15:51 No Known Allergies; cp4 - PMHx: 15:51 BRAIN TUMOR; CVA x4; Hyperlipidemia; Hypertension; Myocardial infarction; PVD; cp4 - Immunization history:: Adult Immunizations up to date. - Social history:: Smoking status: Patient denies any tobacco usage or history of. Screenin:00 [facility] ED Fall Risk Assessment (Adult) History of falling in the last 3 months, jw7 including since admission Yes- fall prone (multiple falls) (3 pts) Confusion or Disorientation Yes (5 pts) Intoxicated or Sedated No (0 pts) Impaired Gait No (0 pts) Mobility Assist Device Used Yes (1 pt) Altered Elimination No (0 pt) Score/Fall Risk Level 3 or more points = High Risk Oriented to surroundings, Maintained a safe environment, Educated pt \T\ family on fall prevention, incl call for assistance when getting out of bed, Assessed \T\ reinforced patient's understanding of fall precautions, Provided non-skid footwear. Abuse screen: Denies threats or abuse. Denies injuries from another. Nutritional screening: No deficits noted. Tuberculosis screening: No symptoms or risk factors identified. Assessment: 19:00 General: Appears in no apparent distress. comfortable, Behavior is calm, cooperative. jw7 Pain: Denies pain. Neuro: Level of Consciousness is awake, alert, obeys commands, Oriented to person. Cardiovascular: Capillary refill < 3 seconds Clubbing of nail beds is absent JVD is absent Patient's skin is warm and dry. Respiratory: Airway is patent Trachea midline Respiratory effort is even, unlabored, Respiratory pattern is regular, symmetrical. GI: Abdomen is flat, non-distended, Bowel sounds present X 4 quads. Abd is soft and non tender X 4 quads. : No deficits noted. No signs and/or symptoms were reported regarding the genitourinary system. EENT: No deficits noted. No signs and/or symptoms were reported regarding the EENT system. Derm: Skin is intact, is fragile, Skin is dry, Skin is normal, Skin temperature is warm. Musculoskeletal: Circulation, motion, and sensation intact. Range of motion: limited in all extremities. Vital Signs: 15:50 BP 121 / 72; Pulse 88; Resp 18; Temp 98.2; Pulse Ox 96% ; cp4 16:00 BP 113 / 47; Pulse 72; Resp 18; Pulse Ox 100% ; cp4 17:00 BP 112 / 64; Pulse 78; Resp 18; Pulse Ox 100% ; cp4 18:00 BP 127 / 42; Pulse 72; Resp 18; Pulse Ox 100% ; cp4 19:00 BP 94 / 67; Pulse 71; Resp 17 S; Pulse Ox 99% on R/A; jw7 ED Course: 15:49 Patient arrived in ED. cp4 15:49 Stephanie Osorio is Primary Nurse. cp4 15:50 Arnulfo Dudley PA is PHCP. cp 15:50 Arnulfo Mendez MD is Attending Physician. cp 15:51 Triage completed. cp4 15:51 Arm band placed on right wrist. Patient placed in the treatment room, on a stretcher. cp4 16:21 Ptt, Activated Sent. cp4 16:21 Basic Metabolic Panel Sent. cp4 16:21 CBC with Diff Sent. cp4 16:21 LFT's Sent. cp4 16:21 Magnesium Sent. cp4 16:21 NT PRO-BNP Sent. cp4 16:21 PT-INR Sent. cp4 16:21 Troponin HS Sent. cp4 16:25 XRAY Chest (1 view) In Process Unspecified. EDMS 19:00 Patient has correct armband on for positive identification. Bed in low position. Call jw7 light in reach. Side rails up X2. 19:38 Provided Education on: discharge instructions. jw7 19:38 No provider procedures requiring assistance completed. IV discontinued, intact, jw7 bleeding controlled, No redness/swelling at site. Pressure dressing applied. Administered Medications: No medications were administered Medication: 19:38 VIS not applicable for this client. jw7 Outcome: 18:43 Discharge ordered by MD. cp 19:37 Discharged to senior care. Transfer form completed. jw7 19:37 Condition: stable jw7 19:37 Discharge instructions given to patient, senior care, Instructed on discharge instructions, follow up and referral plans. Demonstrated understanding of instructions, follow-up care, 19:39 Patient left the ED. jw7 Signatures: Dispatcher [employer] EDAZ Arnulfo Dudley PA PA cp Waits, Jodi, RN RN jw7 Stephanie Osorio 4
[2023-07-18 22:03] VITALS: BP 94/67; TEMP 98.2; O2SAT 99
--- NOTE | 2023-07-22 17:06 | EKG ---
Test Date: 2023-07-18 Test Time: 17:28:37 Sales Rep: DEVON MEASUREMENT RESULTS: Intervals: Rate: 71 ID: [id number]: [id number] QT: 410 QTc: 445 Ringling: P: ID: [id number] T: 37 INTERPRETIVE STATEMENTS: Atrial flutter Anterior infarct, age undetermined Abnormal ECG Compared to ECG 01/20/2023 13:26:04 Myocardial infarct finding now present Atrial fibrillation no longer present ST (T wave) deviation no longer present Electronically Signed On 07-22-23 16:55:48 [employer] by Russell Perry
== END ==
LOC: ER 15:47
DX: D63.8 Anemia in other chronic diseases classified elsewhere (principal); I48.92 Unspecified atrial flutter; I10 Essential (primary) hypertension; E78.5 Hyperlipidemia, unspecified; I25.2 Old myocardial infarction; I69.354 Hemiplegia and hemiparesis following cerebral infarction affecting left non-dominant side
CPT/HCPCS: 36415; 71045; 80048; 80076; 83735; 83880; 84484; 85025; 85610; 85730; 93005; 99284

== ENCOUNTER 2023-07-28 10:43 | Inpatient (IN) | payer OTHER ==
--- OUTSIDE RECORDS SUMMARY | 2023-07-28 10:46 | XMS REPORT | Continuity of Care Document ---
Author Name Unknown Address [address] [facility] [address] [place] [address] [facility] thconnect Address [address] [facility] 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 Role Phone Cheikh Gutierrez Attending Clinician [...] s DA Active U 2021-07 00:00: 00 [facility] No Known Allergie s DA Active U 08-08 00:00: 00 [facility] No Known Allergie s DA Active U 08-08 00:00: 00 [facility] Encounters Start Date/Time End Date/Time Encounter Type Admission Type Attending Clinicians Care Facility Care Department Encounter ID Source 2022-05-30 01:41:00 2022-06-11 13:02:00 Inpatient EM Cheikh Gutierrez HCAPM INTE.02 [id number] [facility] 2022-05-31 07:53:00 2022-05-31 07:53:00 Outpatient Cheikh Gutierrez HCACL LABO [id number] [facility] Results Test Description Test Time Test Comments Results Result Co mments Source GLUCOSE BEDSIDE [id number] 21:09:00* Test Item Value Reference Range Interpretation Comme nts GLUCOSE BEDSIDE TESTING (hipolito t code = GLUBED) 140 mg/dL 70-110 H GLUCOSE BEDSIDE [id number] 17:24:00* Test Item Value Reference Range Interpretation Comme nts GLUCOSE BEDSIDE TESTING (hipolito t code = GLUBED) 161 mg/dL 70-110 H GLUCOSE BEDSIDE [id number] 12:02:00* Test Item Value Reference Range Interpretation Comme nts GLUCOSE BEDSIDE TESTING (hipolito t code = GLUBED) 174 mg/dL 70-110 H GLUCOSE BEDSIDE [id number] 08:11:00* Test Item Value Reference Range Interpretation Comme nts GLUCOSE BEDSIDE TESTING (hipolito t code = GLUBED) 206 mg/dL 70-110 H GLUCOSE BEDSIDE [id number] 20:56:00* Test Item Value Reference Range Interpretation Comme nts GLUCOSE BEDSIDE TESTING (hipolito t code = GLUBED) 185 mg/dL 70-110 H GLUCOSE BEDSIDE [id number] 16:18:00* Test Item Value Reference Range Interpretation Comme nts GLUCOSE BEDSIDE TESTING (hipolito t code = GLUBED) 77 mg/dL 70-110 N GLUCOSE BEDSIDE [id number] 11:27:00* Test Item Value Reference Range Interpretation Comme nts GLUCOSE BEDSIDE TESTING (hipolito t code = GLUBED) 206 mg/dL 70-110 H GLUCOSE BEDSIDE [id number] 20:22:00* Test Item Value Reference Range Interpretation Comme nts GLUCOSE BEDSIDE TESTING (hipolito t code = GLUBED) 111 mg/dL 70-110 H GLUCOSE BEDSIDE [id number] 17:12:00* Test Item Value Reference Range Interpretation Comme nts GLUCOSE BEDSIDE TESTING (hipolito t code = GLUBED) 189 mg/dL 70-110 H GLUCOSE BEDSIDE [id number] 11:37:00* Test Item Value Reference Range Interpretation Comme nts GLUCOSE BEDSIDE TESTING (hipolito t code = GLUBED) 140 mg/dL 70-110 H GLUCOSE BEDSIDE [id number] 08:13:00* Test Item Value Reference Range Interpretation Comme nts GLUCOSE BEDSIDE TESTING (hipolito t code = GLUBED) 86 mg/dL 70-110 N GLUCOSE BEDSIDE [id number] 21:00:00* Test Item Value Reference Range Interpretation Comme nts GLUCOSE BEDSIDE TESTING (hipolito t code = GLUBED) 105 mg/dL 70-110 N GLUCOSE BEDSIDE [id number] 16:42:00* Test Item Value Reference Range Interpretation Comme nts GLUCOSE BEDSIDE TESTING (hipolito t code = GLUBED) 164 mg/dL 70-110 H GLUCOSE BEDSIDE [id number] 12:33:00* Test Item Value Reference Range Interpretation Comme nts GLUCOSE BEDSIDE TESTING (hipolito t code = GLUBED) 142 mg/dL 70-110 H GLUCOSE BEDSIDE [id number] 07:44:00* Test Item Value Reference Range Interpretation Comme nts GLUCOSE BEDSIDE TESTING (hipolito t code = GLUBED) 131 mg/dL 70-110 H GLUCOSE BEDSIDE [id number] 20:25:00* Test Item Value Reference Range Interpretation Comme nts GLUCOSE BEDSIDE TESTING (hipolito t code = GLUBED) 147 mg/dL 70-110 H GLUCOSE BEDSIDE [id number] 17:00:00* Test Item Value Reference Range Interpretation Comme nts GLUCOSE BEDSIDE TESTING (hipolito t code = GLUBED) 181 mg/dL 70-110 H GLUCOSE BEDSIDE [id number] 11:40:00* Test Item Value Reference Range Interpretation Comme nts GLUCOSE BEDSIDE TESTING (hipolito t code = GLUBED) 160 mg/dL 70-110 H GLUCOSE BEDSIDE [id number] 07:25:00* Test Item Value Reference Range Interpretation Comme nts GLUCOSE BEDSIDE TESTING (hipolito t code = GLUBED) 129 mg/dL 70-110 H GLUCOSE BEDSIDE [id number] 22:36:00* Test Item Value Reference Range Interpretation Comme nts GLUCOSE BEDSIDE TESTING (hipolito t code = GLUBED) 157 mg/dL 70-110 H GLUCOSE BEDSIDE [id number] 12:18:00* Test Item Value Reference Range Interpretation Comme nts GLUCOSE BEDSIDE TESTING (hipolito t code = GLUBED) 178 mg/dL 70-110 H GLUCOSE BEDSIDE [id number] 08:12:00* Test Item Value Reference Range Interpretation Comme nts GLUCOSE BEDSIDE TESTING (hipolito t code = GLUBED) 122 mg/dL 70-110 H GLUCOSE BEDSIDE [id number] 05:55:00* Test Item Value Reference Range Interpretation Comme nts GLUCOSE BEDSIDE TESTING (hipolito t code = GLUBED) 146 mg/dL 70-110 H GLUCOSE BEDSIDE [id number] 22:17:00* Test Item Value Reference Range Interpretation Comme nts GLUCOSE BEDSIDE TESTING (hipolito t code = GLUBED) 154 mg/dL 70-110 H GLUCOSE BEDSIDE [id number] 17:19:00* Test Item Value Reference Range Interpretation Comme nts GLUCOSE BEDSIDE TESTING (hipolito t code = GLUBED) 170 mg/dL 70-110 H GLUCOSE BEDSIDE [id number] 11:47:00* Test Item Value Reference Range Interpretation Comme nts GLUCOSE BEDSIDE TESTING (hipolito t code = GLUBED) 139 mg/dL 70-110 H GLUCOSE BEDSIDE [id number] 06:51:00* Test Item Value Reference Range Interpretation Comme nts GLUCOSE BEDSIDE TESTING (hipolito t code = GLUBED) 97 mg/dL 70-110 N BASIC METABOLIC [id number] 04:49:00* Test Item Value Reference Range Interpretation [...] CA) 7.3 MG/DL 8.5-10.1 L CBC W/AUTO [id number] 04:10:00* Test Item Value Reference Range Interpretation [...] = MDIFF) NO DIFF/SCN CRITERIA GLUCOSE BEDSIDE [id number] 20:43:00* Test Item Value Reference Range Interpretation Comme nts GLUCOSE BEDSIDE TESTING (hipolito t code = GLUBED) 218 mg/dL 70-110 H GLUCOSE BEDSIDE [id number] 18:31:00* Test Item Value Reference Range Interpretation Comme nts GLUCOSE BEDSIDE TESTING (hipolito t code = GLUBED) 118 mg/dL 70-110 H GLUCOSE BEDSIDE [id number] 11:16:00* Test Item Value Reference Range Interpretation Comme nts GLUCOSE BEDSIDE TESTING (hipolito t code = GLUBED) 179 mg/dL 70-110 H GLUCOSE BEDSIDE [id number] 08:01:00* Test Item Value Reference Range Interpretation Comme nts GLUCOSE BEDSIDE TESTING (hipolito t code = GLUBED) 126 mg/dL 70-110 H CBC W/AUTO [id number] 06:17:00* Test Item Value Reference Range Interpretation [...] = MDIFF) NO DIFF/SCN CRITERIA GLUCOSE BEDSIDE [id number] 20:13:00* Test Item Value Reference Range Interpretation Comme nts GLUCOSE BEDSIDE TESTING (hipolito t code = GLUBED) 221 mg/dL 70-110 H GLUCOSE BEDSIDE [id number] 16:23:00* Test Item Value Reference Range Interpretation Comme nts GLUCOSE BEDSIDE TESTING (hipolito t code = GLUBED) 128 mg/dL 70-110 H GLUCOSE BEDSIDE [id number] 11:31:00* Test Item Value Reference Range Interpretation Comme nts GLUCOSE BEDSIDE TESTING (hipolito t code = GLUBED) 188 mg/dL 70-110 H GLUCOSE BEDSIDE [id number] 07:44:00* Test Item Value Reference Range Interpretation Comme nts GLUCOSE BEDSIDE TESTING (hipolito t code = GLUBED) 168 mg/dL 70-110 H CBC W/AUTO [id number] 02:01:00* Test Item Value Reference Range Interpretation [...] = MDIFF) NO DIFF/SCN CRITERIA GLUCOSE BEDSIDE [id number] 20:22:00* Test Item Value Reference Range Interpretation Comme nts GLUCOSE BEDSIDE TESTING (hipolito t code = GLUBED) 108 mg/dL 70-110 N GLUCOSE BEDSIDE [id number] 12:05:00* Test Item Value Reference Range Interpretation Comme nts GLUCOSE BEDSIDE TESTING (hipolito t code = GLUBED) 172 mg/dL 70-110 H CBC W/AUTO [id number] 09:34:00* Test Item Value Reference Range Interpretation [...] = MDIFF) NO DIFF/SCN CRITERIA GLUCOSE BEDSIDE [id number] 08:06:00* Test Item Value Reference Range Interpretation Comme nts GLUCOSE BEDSIDE TESTING (hipolito t code = GLUBED) 149 mg/dL 70-110 H GLUCOSE BEDSIDE [id number] 21:06:00* Test Item Value Reference Range Interpretation Comme nts GLUCOSE BEDSIDE TESTING (hipolito t code = GLUBED) 190 mg/dL 70-110 H GLUCOSE BEDSIDE [id number] 17:03:00* Test Item Value Reference Range Interpretation Comme nts GLUCOSE BEDSIDE TESTING (hipolito t code = GLUBED) 173 mg/dL 70-110 H THROMBOPLASTIN TIME [id number] 07:42:00* Test Item Value Reference Range Interpretation Comme nts THROMBOPLASTIN TIME PARTIAL (test code = PTT) 84.9 SECONDS 26-35 H TROP-I HIGH [id number] 05:07:00* Test Item Value Reference Range Interpretation [...] .Date & Time Test Performed: .CBC W/AUTO [id number] 04:52:00* Test Item Value Reference Range Interpretation [...] = MDIFF) NO DIFF/SCN CRITERIA THROMBOPLASTIN TIME [id number] 00:12:00* Test Item Value Reference Range Interpretation Comme nts THROMBOPLASTIN TIME PARTIAL (test code = PTT) 37.0 SECONDS 26-35 H PROTHROMBIN [id number] 23:24:00* Test Item Value Reference Range Interpretation [...] Infarction (to prevent recurrent infarct). TROP-I HIGH [id number] 18:28:00* Test Item Value Reference Range Interpretation [...] varyby method. Completed by Nursing: NOGLUCOSE BEDSIDE [id number] 16:45:00* Test Item Value Reference Range Interpretation Comme nts GLUCOSE BEDSIDE TESTING (hipolito t code = GLUBED) 188 mg/dL 70-110 H - MRI BRAIN W/O [id number] 15:22:00 [facility] 1950 Sex: M FAX: Eddi Guerra MD [phone] Camps: PM St: ADM FAX: Cheikh Gutierrez MD [phone] Name: FRAN SANTAMARIA [place] : 1950 Age/S: 71/M [address] Unit #: [id number] Loc: [place] [address] Phys: Eddi Hoff MD Acct: [id number] Dis Date: Status: ADM IN PHONE #: [phone] Exam Date: 05/30/2022 1440 FAX #: Reason: possible cva EXAMS: CPT: [id number] MRI BRAIN W/O CONTRAST 46251 EXAM: - MRI BRAIN W/O CONTRAST CLINICAL [...] Signed Report (CONTINUED) FAX: Eddi Guerra MD [phone] Camps: PM St: ADM FAX: Cheikh Gutierrez MD [phone] Name: FRAN SANTAMARIA [facility] : 1950 Age/S: 71/M [address] Unit #: [id number] Loc: [place] [address] Phys: Eddi Hoff MD Acct: [id number] Dis Date: Status: ADM IN PHONE #: [phone] Exam Date: 05/30/2022 1440 FAX #: Reason: possible cva EXAMS: CPT: [id number] MRI BRAIN W/O CONTRAST 84038 (Continued) at 1522 Reported and signed by: Jun Vincent D.O. CC: Eddi Hoff MD; Cheikh Gutierrez MD Technologist:RT Khang(R)(CT)(MR) Transcribed Date/Time/By: 05/30/2022 (1522) :CostaJW22 Orig Print D/T: S: 05/30/2022 (9483) PAGE 2 Signed ReportTHROMBOPLASTIN TIME [id number] 15:09:00* Test Item Value Reference Range Interpretation Comme nts THROMBOPLASTIN TIME PARTIAL (test code = PTT) 79.4 SECONDS 26-35 H GLUCOSE BEDSIDE [id number] 12:42:00* Test Item Value Reference Range Interpretation Comme nts GLUCOSE BEDSIDE TESTING (hipolito t code = GLUBED) 103 mg/dL 70-110 N GLUCOSE BEDSIDE [id number] 08:23:00* Test Item Value Reference Range Interpretation Comme nts GLUCOSE BEDSIDE TESTING (hipolito t code = GLUBED) 192 mg/dL 70-110 H GLYCOSYLATED HEMOGLOBIN [id number] 06:37:00* Test Item Value Reference Range Interpretation Comme nts GLYCOSYLATED HEMOGLOBIN (HA1 C) (test code = GLYHGB) 6.0 % A1C 0.0-5.7 H ESTIMATED AVERAGE GLUCOSE (t est code = EAG) 126 MG/DLest CBC W/AUTO [id number] 05:56:00* Test Item Value Reference Range Interpretation [...] PTT) 27.6 SECONDS 26-35 N BASIC METABOLIC [id number] 05:43:00* Test Item Value Reference Range Interpretation [...] = LDL) 43 MG/DL 0-129 N <100 SSSWGCC30 0 - 129 NEAR OPTIMAL/ABOVE WZHYJSN287 - 159 JBUKOWSXLH695 - 189 HIGH>OR= 190 VERY HIGHNOTE THAT GUIDELINES ARE PROVIDED BY NATIONAL CHOLESTEROLEDUCATION PROGRAM ADULT TREATMENT PANEL III LDL/HDL (test code = LDL/HDL) 0.91 Ratio See_Comment L [[employer]] The system which generated this result transmitted reference range: 1.48-3.22 Avg. The reference range was not used to interpret this result as normal/abnormal. TROP-I HIGH [id number] 04:54:00* Test Item Value Reference Range Interpretation [...] SEEN Indication for culture: Suprapubic PainBASIC METABOLIC [id number] 16:03:00 * Test Item Value Reference Range [...] 8.5-10.1 N Completed by Nursing: NOTROP-I HIGH [id number] 16:03:00* Test Item Value Reference Range Interpretation [...] varyby method. Completed by Nursing: NOTHROMBOPLASTIN TIME [id number] 15:44:00* Test Item Value Reference Range Interpretation Comme nts THROMBOPLASTIN TIME PARTIAL (test code = PTT) 28.9 SECONDS 26-35 N PROTHROMBIN [id number] 15:44:00* Test Item Value Reference Range Interpretation [...] Infarction (to prevent recurrent infarct). CBC W/AUTO [id number] 15:34:00* Test Item Value Reference Range Interpretation [...] MDIFF) NO DIFF/SCN CRITERIA - CT ANGIO [id number] 14:48:00 [facility] 1950 Sex: M Name: FRAN SANTAMARIA : 1950 Age/S: 71 / M [address] Unit #: [id number] Loc: [place] [address] Phys: Cami Salomon Jordy DO Acct: [id number] Dis Date: Status: REG ER PHONE #: [phone] Exam Date: 05/29/20221411 FAX #: Reason: ams EXAMS: CPT: [id number] CT ANGIO NECK [address] HISTORY: CVA Technique: Axial tomograms through the [...] SANTAMARIA : 1950 Age/S: 71 / M [address] Unit #: [id number] Loc: [place] [address] Phys: Cami Salomon Jordy DO Acct: [id number] Dis Date: Status: REG ER PHONE #: [phone] Exam Date: 05/29/2022 1412 FAX #: Reason: ams EXAMS: CPT: [id number] CT ANGIO NECK 36451 (Continued) anterior cerebral arteries and middle cerebral [...] 05/29/2022 (1448) [email or web address].[email or web address] Orig PrintD/T: S: 05/29/2022 (2466) PAGE 2 Signed Report- CT ANGIO [id number] 14:48:00 [facility] 1950 Sex: M Name: FRAN SANTAMARIA [facility] : 1950 Age/S: 71 / M [address] [address] Unit #: [id number] Loc: [place] [address] Phys: Cami Salomon DO Acct: [id number] Dis Date: Status: REG ER PHONE #: [phone] Exam Date: 05/29/2022 1415 FAX #: Reason: ams EXAMS: CPT: [id number] CT ANGIO HEAD [address] HISTORY: CVA Technique: Axial tomograms through the [...] 1 Signed Report (CONTINUED) Name: FRAN SANTAMARIA [facility] [place] : 1950 Age/S: 71 / M [address] Unit#: [id number] Loc: [place] [address] Phys: Cami Salomon DO Acct: [id number] Dis Date: Status: REG ER PHONE #: [phone] Exam Date: 05/29/2022 1415 FAX #: Reason: ams EXAMS: CPT: [id number] ANGIO HEAD 19367 (Continued) anterior cerebral arteries and middle cerebral [...] (1448) [email or web address].[email or web address] Orig Print D/T: S: 05/29/2022 (7148) PAGE 2 Signed Report- XR CHEST 1 [id number] 14:44:00 [facility] 1950 Sex: M Name: FRAN SANTAMARIA [facility] : 1950 Age/S: 71 / M [address] Unit #: [id number] Loc: [place] [address] Phys: Cami Salomon DO Acct: [id number] Dis Date: Status: REG ER PHONE #: [phone] Exam Date: 05/29/2022 1421 FAX #: Reason: Code Stroke EXAMS: CPT: [id number] XR CHEST 1 V 78976 Fluoro Time: DAP (Gy m2): Air Kerma [...] PAGE 1 Signed Report Name: FRAN SANTAMARIA [facility] : 1950 Age/S: 71 / M [address] Unit #: [id number] Loc: [place] [address] Phys: AimeCami Spence DO Acct: [id number] Dis Date: Status: REG ER PHONE #: [phone] Exam Date: 05/29/2022 1421 FAX #: Reason: Code Stroke EXAMS: CPT: [id number] XR CHEST 1 V 95351 Fluoro Time: DAP (Gy m2): Air Kerma (mGy): (Continued) Technologist: BK BROOKS Trnscb Date/Time: 05/29/2022 (1447) CostaRXC2 PAGE 2 Signed Report - CT HEAD/BRAIN W/O [id number] 14:43:00 [facility] 1950 Sex: M Name: FRAN SANTAMARIA [facility] : 1950 Age/S: 71 / M [address] [address] Unit #: [id number] Loc: [place] [address] Phys: Cami Salomon DO Acct: [id number] Dis Date: Status: REG ER PHONE #: [phone] Exam Date: 05/29/2022 1405 FAX #: Reason: ams EXAMS: CPT: [id number] CT HEAD/BRAIN W/O CONT 00684 Location code: H5 CT Brain Without Contrast [...] 1 Signed Report (CONTINUED) Name: FRAN SANTAMARIA [facility] : 1950 Age/S: 71 / M [address] [address] Unit #: [id number] Loc: [place] [address] Phys: Cami Salomon DO Acct: [id number] Dis Date: Status: REG ER PHONE #: [phone] Exam Date: 05/29/2022 1405 FAX #: Reason: ams EXAMS: CPT: [id number] CT HEAD/BRAIN W/O CONT 69140 (Continued) at 1443 Reported and signed by: David Silverman M.D. CC: Cami Salomon DO Technologist:Carolyn Rizzo, RT ,(R),(CT) CTDI: DLP: Trnscb Date/Time: 05/29/2022 (1443) t.SDR.DRB1 Orig Print D/T: S: 05/29/2022 (1446) PAGE 2 Signed ReportGLUCOSE BEDSIDE [id number] 07:59:00* Test Item Value Reference Range Interpretation Comme nts GLUCOSE BEDSIDE TESTING (hipolito t code = GLUBED) 191 mg/dL 70-110 H BASIC METABOLIC [id number] 05:11:00* Test Item Value Reference Range Interpretation [...] CA) 7.9 MG/DL 8.5-10.1 L CBC W/AUTO [id number] 05:01:00* Test Item Value Reference Range Interpretation [...] ode = MDIFF) NO DIFF/SCN CRITERIA URINALYSIS [id number] 21:02:00* Test Item Value Reference Range Interpretation [...] = LEUU) NEGATIVE Leuk/mcL NEGATIVE GLUCOSE BEDSIDE [id number] 20:47:00* Test Item Value Reference Range Interpretation Comme nts GLUCOSE BEDSIDE TESTING (hipolito t code = GLUBED) 199 mg/dL 70-110 H GLUCOSE BEDSIDE [id number] 17:00:00* Test Item Value Reference Range Interpretation Comme nts GLUCOSE BEDSIDE TESTING (hipolito t code = GLUBED) 219 mg/dL 70-110 H GLUCOSE BEDSIDE [id number] 13:26:00* Test Item Value Reference Range Interpretation Comme nts GLUCOSE BEDSIDE TESTING (hipolito t code = GLUBED) 185 mg/dL 70-110 H - MRI BRAIN W/O [id number] 11:53:00FAX: Cheikh Gutierrez MD [phone] Camps: PM St: ADM Name: FRAN SANTAMARIA [facility] : 1950 Age/S: 67/M [address] [address] Unit #: [id number] Loc: [address] [place] [address] Phys: Cheikh Gutierrez MD Acct:[id number] Dis Date: Status: ADM IN PHONE #: [phone] Exam Date: 08/09/2018 1197 FAX #: Reason: Brain Mass EXAMS: CPT: [id number] MRI BRAIN W/O CONTRAST 04556 Location: T 18 MRI brain, 08/09/18COMPARISON EXAM [...] changes even seen extending along the left PRISM MEASURER territory. 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 There is normal flow void involving [...] Signed Report (CONTINUED) FAX: Cheikh Gutierrez MD [phone] Camps: PM St: ADM -- Name: FRAN SANTAMARIA [facility] : 1950 Age/S: 67/M [address] [facility] Unit #: [id number] Loc: [address] [address] Phys: Cheikh Gutierrez MD Acct: [id number] Dis Date: Status: ADM IN PHONE #: [phone] Exam Date: 08/09/2018 1137 FAX #: Reason: Brain Mass EXAMS: CPT: [id number] BRAIN W/O CONTRAST 64280 (Continued) No acute vascular insult. No intracranial hemorrhage. 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 Chronic microvascular changes elsewhere. at 1153 Reported and signed by: Daina Viera M.D. CC: Cheikh Gutierrez MD Technologist: Mainor Schreiber, RT(R)(CT) Transcribed Date/Time/By: 08/09/2018 (9673) :CostaDAS6 Orig Print D/T: S: 08/09/2018 (8275) PAGE 2 Signed ReportGLUCOSE BEDSIDE [id number] 07:25:00* Test Item Value Reference Range Interpretation Comme nts GLUCOSE BEDSIDE TESTING (hipolito t code = GLUBED) 170 mg/dL 70-110 H GLUCOSE BEDSIDE [id number] 22:47:00* Test Item Value Reference Range Interpretation Comme nts GLUCOSE BEDSIDE TESTING (hipolito t code = GLUBED) 207 mg/dL 70-110 H COMPREHENSIVE METABOLIC [id number] 20:45:00* Test Item Value Reference Range Interpretation [...] 75 Unit/L 50-136 N Completed by Nursing: [id number] 20:45:00* Test Item Value Reference Range Interpretation Comme nts MAGNESIUM (test code = MAG) 1.6 MG/DL 1.8-2.4 L Completed by Nursing: NONT PRO-BRAIN NATRIURETIC [id number] 20:45:00* Test Item Value Reference Range Interpretation Comme nts NT PRO-BRAIN NATRIURETIC PEP TI (test code = PROBNP) 559 PG/ML 0-100 H Completed by Nursing: [id number] 20:45:00* Test Item Value Reference Range Interpretation [...] Completed by Nursing: NO- CT HEAD/BRAIN W/O [id number] 20:36:00Name: FRAN SANTAMARIA [facility] : 1950 Age/S: 67 / M [address] [address] Unit #: [id number] Loc: [place] [address] Phys: Crissy Anders MD Acct: [id number] Dis Date: Status: REGER PHONE #: [phone] Exam Date: 08/08/20182024 FAX #: Reason: RLE weakness; eval for stroke EXAMS: CPT: [id number] CT HEAD/BRAIN W/O CONT [address]46 CT HEAD WITHOUT CONTRAST. HISTORY: RLE weakness; [...] 1 Signed Report (CONTINUED) Name: FRAN SANTAMARIA [place] : 1950 Age/S: 67 / M [address] [address] Unit #: [id number] Loc: [place] [address] Phys: Crissy Anders MD Acct: [id number] Dis Date: Status: REG ER PHONE #: [phone] Exam Date: 08/08/20182024 FAX #: Reason: RLE weakness; eval for stroke EXAMS: CPT: [id number] CT HEAD/BRAIN W/O CONT 40889 (Continued) at 2035 Reported and signed by: Hua Anaya M.D. CC: Crissy Anders MD Technologist:Damon Kat RT(R)(CT) CTDI: DLP: Trnscb Date/Time: 08/08/2018 (2035) t.ADALIDR.SP17 Orig Print D/T: S: 08/08/2018 (2038) CTDI: DLP: PAGE 2 Signed Report- XR CHEST 1 V 2018-08-08 20:35:00Name: FRAN SANTAMARIA [facility] : 1950 Age/S: 67 / M [address] [address] Unit #: [id number] Loc: [place] [address] Phys: Crissy Anders MD Acct: [id number] Dis Date: Status: REG ER PHONE #: [phone] Exam Date: 08/08/20182029 FAX #: Reason: RLE weakness; eval for stroke EXAMS: CPT: [id number] XR CHEST 1 V 91011 Fluoro Time: DAP (Gy m2): Air Kerma [...] PAGE 1 Signed Report [facility] 1950 Age/S: 67 / M [address] [address] Unit #: [id number] Loc: [place] [address] Phys: Crissy Anders MD Acct: [id number] Dis Date: Status: REG ER PHONE #: [phone] Exam Date: 08/08/20182029 FAX #: Reason: RLE weakness; eval for stroke EXAMS: CPT: [id number] XR CHEST 1 V 52062 Fluoro Time: DAP (Gy m2): Air Kerma (mGy): (Continued) Technologist:Damon Kat, RT(R)(CT) Trnscb Date/Time: 08/08/2018 (2034) [email or web address] Orig Print D/T: S: 08/08/2018 (2037) PAGE 2 Signed ReportCBC W/AUTO [id number] 20:22:00* Test Item Value Reference Range Interpretation [...] Notes Date/Time Note Provider Source 2022-06-10 18:02:00 [id number] dEZWQc5W9KbP1m6gucUjJpWntxtyu qzW6O30NYUrxC8csD3sxBLoppEu4261-78-72V50:02:00 [facility] ([facility])Wound Care Progress NoteREPORT#:[id number] REPORT STATUS: SignedDATE:06/10/22 TIME:1801 PATIENT: FRAN SANTAMARIA UNIT #: [id number]#: [id number] [address]: [address] AGE: 71 SEX: M ATTEND: Heidy [...] status Consultants: cardiology at 1803 RPT #: [id number] OF REPORT PNProcedure lxkj5561-13-60X55:02:00L.BQDR54839200-4477KLHcatp able for patient rvyuCLLBVWHWLCGJCD9635-81-72V49:03:32 [facility] 2022-06-10 10:31:00 [id number] QIAVFEnnPzGpfIqy0OuWzHisJXtEV 7iVi1LEunpZhBV4RX4VzALteVqg7207-00-27J71:31:00 [facility] ([facility])Hospitalist Progress NoteREPORT#:[id number] REPORT STATUS: SignedDATE:06/10/22 TIME:1031 PATIENT: FRAN SANTAMARIA UNIT #: [id number]#: [id number] [address]8QPX: 50 AGE: 71 SEX: M ATTEND: Cheikh [...] capillary refill, no cyanosis, no edemaMusculoskeletal: normal inspectionNeuro/SNOW RANGER: right hemiparesis, alert, oriented X 3, normal [...] significant acute abnormality 2. Elevated troponin-type II [place] trended troponin x3 Monitor on the telemetry [...] home with home health Likely discharge to personal-shelter Saturday -family agreeable at 1032 RPT #: [id number] OF REPORT PRProgress eoao9584-73-52H58:31:00L.VMPT43465252-6701LYXgdxf able for patient ujzdSUVFWOUFUHPGJZ1736-21-30J02:32:34 [facility] 2022-06-10 10:30:00 [id number] HqEbfOueWtzuD2ljC0CSNUxVgI1sW wkVVWZ6UznOThHf/3eN7Yi+GWxd2571-13-95T77:30:00 [facility] ([facility])Hospitalist Progress NoteREPORT#:[id number] REPORT STATUS: SignedDATE:06/10/22 TIME:1030 PATIENT: FRAN SANTAMARIA UNIT #: [id number]#: [id number] [address] AGE: 71 SEX: M ATTEND: [...] capillary refill, no cyanosis, no edemaMusculoskeletal: normal inspectionNeuro/SNOW RANGER: right hemiparesis, alert, oriented X 3, normal [...] significant acute abnormality 2. Elevated troponin-type II [place] trended troponin x3 Monitor on the telemetry [...] with case management at 1031 RPT #: [id number] OF REPORT PRProgress hwhk6053-88-38W45:30:00L.VQOB70493885-7372OYFnbwc able for patient fwipFHSEMHNFQJWKJT8465-30-82J25:32:03 [facility] 2022-06-09 18:15:00 RF71330483232F99jDN5 CHErOInktfxEV6DTUElYnrqAWCmb3 LXbjMPgTOB6VunrV9Z9cPY2QURl6603-43-93P78:15:00 [facility] ([facility])Wound Care Progress NoteREPORT#:[id number] REPORT STATUS: SignedDATE:06/09/22 TIME:1814 PATIENT: FRAN SANTAMARIA UNIT #: [id number]#: [id number] [address] AGE: 71 SEX: M ATTEND: Cheikh Gutierrez [employer] AUTHOR: Yakov Kate MD * ALL edits [...] status Consultants: cardiology at 1817 RPT #: [id number] OF REPORT PNProcedure gqxv6619-14-74M22:15:00L.XVNL66294787-0237NGOlynr able for patient nxihKTFOILSIFOVVXE8450-65-92H94:17:32 [facility] 2022-06-08 21:09:00 [id number] 7fEsc+8o/TPzuqP65VkZ97TjFb4jj 5Ly4WRY8eyOc/EVu9/4zerVMs9N1936-46-60O10:09:00 [facility] NoteREPORT#:[id number] REPORT STATUS: SignedDATE:06/08/22 TIME:2108 PATIENT: FRAN SANTAMARIA UNIT #: [id number]#: [id number] [address] AGE: 71 SEX: M ATTEND: Cheikh Gutierrez [facility] AUTHOR: Yakov Kate MD * ALL [...] status Consultants: cardiology at 2110 RPT #: [id number] OF REPORT PNProcedure xrlh6501-87-41L46:09:00L.FGKG04697361-6732MGDoets able for patient tecjHQFSYLIUKNPKTQ7059-24-44M10:10:55 [facility] 2022-06-08 11:04:00 LG2655853773X29MVWmg krfC6lpy5KsSPwC8HNEDWRF50mgnD FC2RNaiusidSXD+/eDhENIVeyvF7991-37-53P00:04:00 [facility])Hospitalist Progress NoteREPORT#:[id number] REPORT STATUS: SignedDATE:06/08/22 TIME:1104 PATIENT: FRAN SANTAMARIA UNIT #: [id number]#: [id number] [address] AGE: 71 SEX: M ATTEND: Cheikh Gutierrez [facility] AUTHOR: Anneliese Eden MD * ALL [...] capillary refill, no cyanosis, no edemaMusculoskeletal: normal inspectionNeuro/SNOW RANGER: right hemiparesis, alert, oriented X 3, normal [...] significant acute abnormality 2. Elevated troponin-type II [place] trended troponin x3 Monitor on the telemetry [...] with case management at 1106 RPT #: [id number] OF REPORT PRProgress ezmo0659-20-48X13:04:00L.JEKK23711490-5404RRUperp able for patient hrfvSDNPUTIQBGPWJM2090-24-90D76:07:09 [facility] 2022-06-08 09:12:00 WP1287395941V5qVn8Va SSiC8NMZQuwLLaRrRAGCRI/XQa0A4 rcFKmL+qFOmDClv/hNYqp+JdcVo3338-55-36K51:12:00 [facility])Cardiology Progress NoteREPORT#:[id number] REPORT STATUS: SignedDATE:06/08/22 TIME:911 PATIENT: FRAN SANTAMARIA UNIT #: [id number]#: [id number] [address] AGE: 71 SEX: M ATTEND: [...] ill-looking male, appear confused, hx provided by [facility]. The patient has PMH of CVA, AFib on Eliquis, CAD with prior PCI who presented to ED with abnormal speech. Initial Head imaging negative for acute IC finding. Troponin came back elevated and cardiology consultation is requested. Troponin: 160.5->223.5. EKG showed atrial fibrillation with controlled rate, no acute ST/T wave changes. The patient denies chest pain or SOB. CHARLIEA/sister Ayla Ace phone [phone]. Subjective: Denies any chest pain or shortness [...] ill-looking male, appear confused, hx provided by [facility]. The patient has PMH of CVA, AFib [...] CAD with prior stentleaning toward Type II WY in the setting of possible TIA or [...] daily Stop amlodipine CHARLIEA/sister Ayla Ace phone [phone]. No further cardiac workup. Outpatient follow-up with [...] with any questions or concerns. Sammie Johnson, [facility] RADIOLOGY SCHEDULER Dr. Sarah Chavez MD-Attending [facility]SC[facility] Cardiology at 1055 at 0614 RPT #: [id number] OF REPORT PRProgress tqfe7616-57-81Y67:12:00L.QQRA34045343-1828OZZdlzv able for patient hgwuZZQCBNDQBRQLKB0078-83-79I32:01:49 [facility] 2022-06-07 22:04:00 VM40084523475O8jcUPj m7qzS9rZ3AYUnNxwkSa0x4D71Pf3I O77agOXbLk+kn8CCGunqEYVglkg8289-44-10W65:04:00 [facility] ([facility])Wound Care Progress NoteREPORT#:[id number] REPORT STATUS: SignedDATE:06/07/22 TIME:2203 PATIENT: FRAN SANTAMARIA UNIT #: [id number]#: [id number] [address] AGE: 71 SEX: M ATTEND: Cheikh Gutierrez [facility] AUTHOR: Yakov Kate MD * ALL [...] status Consultants: cardiology at 2205 RPT #: [id number] OF REPORT PNProcedure rlqb3779-70-69V38:04:00L.PIAE64278932-3911CWRpfdl able for patient oreqDPSDLEEVSSRKBA2331-61-30Z48:06:13 [facility] 2022-06-07 16:35:00 [id number]/l9 3KlVyKH14PgMnL1g0Ymzuya4fqdkY YU2a/wKx3nvAWyRF+bC1CZtFYmr0335-17-50X91:35:00 [facility] ([facility])Neurology Progress NoteREPORT#:[id number] REPORT STATUS: SignedDATE:06/07/22 TIME:1635 PATIENT: FRAN SANTAMARIA UNIT #: [id number]#: [id number] ROOM/BED: E072-4YVU: 50 AGE: 71 SEX: M ATTEND: Cheikh Gutierrez [facility] AUTHOR: Ramsey Marrero MD * ALL [...] the consult.05/31 stable; no evidence for new ayyrgf84/2 review of MRI shows moderate to large area of encephalomalacia in Left superior fromtalarea + what appears to be a meningioma just posterior to this. Concern is that of seizure with postictal confusion. Will add depakote and follow as outpatient in view of difficulty of obtainingEEG on the weekend.06/07 eeg has much artifact but bifrontal slowing is noted at 1639 RPT #: [id number] OF REPORT PRProgress seja1892-74-52J12:35:00L.YQHG07848671-6878ZPOxrzg able for patient kqsfGHPJBEEHLBZWGS3329-12-33G21:39:46 [facility] 2022-06-07 15:07:00 EM8253272337vRR5+79l VxgcgAF7Rqi3vwLtBL9PUYrsBWg2T uKQa1g6R3LwVdrkXcpXSh73TkMT0506-71-25L01:07:79569 8-0003 [facility] [address] [place] [address] PATIENT NAME: FRAN SANTAMARIA ADMIT DATE: 05/30/22ACCOUNT NO: [id number] ROOM NO: S218 AGE: 71 REPORT TYPE: [...] Dictated: 06/07/2022 15:07:30Date Transcribed: 06/07/2022 21:39:34/Edenilson #: [id number] ID: [id number] by Ramsey Marrero MD On 07/25/2022 09:19:45 AM at 0919 PATIENT NAME: FRAN SANTAMARIA fqlrbzy8611-27-89T38:39:00L.QFZQL51533413-2544KNP vailable for patient ywxtCPODWEXUSYZIEV2992-08-34N14:20:20 [facility] 2022-06-07 11:22:00 CK1018859725zbtzkPhF XYgw8I4jqy03mS7NH3j9aQinu16Qz ryka9IBuCMiGidHj6G6xBuZEW7C0043-94-79X67:22:00 [facility] ([facility])Hospitalist Progress NoteREPORT#:[id number] REPORT STATUS: SignedDATE:06/07/22 TIME:1121 PATIENT: FRAN SANTAMARIA UNIT #: [id number]#: [id number] ROOM/BED: R505-2UXJ: 50 AGE: 71 SEX: M ATTEND: Cheikh Gutierrez [facility] AUTHOR: Anneliese Eden MD * ALL [...] capillary refill, no cyanosis, no edemaMusculoskeletal: normal inspectionNeuro/SNOW RANGER: right hemiparesis, alert, oriented X 3, normal [...] significant acute abnormality 2. Elevated troponin-type II [place] trended troponin x3 Monitor on the telemetry [...] with case management at 1124 RPT #: [id number] OF REPORT PRProgress jlbw8476-04-29Q65:22:00L.HHRT31558063-7898QJRqndd able for patient wojcYQKPPTHFAHLDDH4006-78-37L66:24:49 [facility] 2022-06-07 09:30:00 BQ1181031937DOHde4Fj Q+8zvweOPdyI+W44HgYup/GpSRugF YjOKnWAVr+RJsca0+ioOnhb4Hfz1664-34-94I18:30:00 [facility] ([facility])Infectious Dis. Progress NoteREPORT#:[id number] REPORT STATUS: SignedDATE:06/07/22 TIME:929 PATIENT: FRAN SANTAMARIA UNIT #: [id number]#: [id number] ROOM/BED: D033-4QPA: 50 AGE: 71 SEX: M ATTEND: Cheikh Gutierrez [facility] AUTHOR: Evelyn Jiménez MD * ALL [...] painExtremities: no clubbing, no cyanosisMusculoskeletal: no joint swellingNeuro/SNOW RANGER: altered mental statusSkin: Multiple signs of excoriations [...] off ABConsultants: cardiology at 1317 RPT #: [id number] OF REPORT PRProgress lgfk8763-71-85A16:30:00L.CQSZ97595158-7011OQVxwro able for patient eqlxQCGCDYWPZBPONX8333-49-67J34:17:26 [facility] 2022-06-06 22:46:00 MA9823857719m+oADrtD pNRCMJPjSTGwU2QNhGiJSJPbJALv5 KV8eBygWDCPmW9r5fABl50B4zfr7450-07-96E22:46:00 [facility] ([facility])Wound Care Progress NoteREPORT#:[id number] REPORT STATUS: SignedDATE:06/06/22 TIME:2245 PATIENT: FRAN SANTAMARIA UNIT #: [id number]#: [id number] [address] AGE: 71 SEX: M ATTEND: Cheikh Gutierrez [facility] AUTHOR: Yakov Kate MD * ALL [...] status Consultants: cardiology at 2247 RPT #: [id number] OF REPORT PNProcedure ncpi8030-69-15K18:46:00L.JDKY50984775-6783RYSdeof able for patient yxvqBCNCZQZQLWTYKE6016-96-45K13:47:56 [facility] 2022-06-06 14:53:00 DI7237183462vKpozwkO Ikwlj5RC2y2rmK2rZhuZ9zwsHkU3K zdkOmO6T9ASg2SRBxnOrFMaR3mu9104-00-02V43:53:00 [facility] Progress NoteREPORT#:[id number] REPORT STATUS: SignedDATE:06/06/22 TIME:1453 PATIENT: FRAN SANTAMARIA UNIT #: [id number]#: [id number] [address] AGE: 71 SEX: M ATTEND: Cheikh Gutierrez [facility] AUTHOR: Sammie Johnson APRN * ALL [...] ill-looking male, appear confused, hx provided by [facility]. The patient has PMH of CVA, AFib on Eliquis, CAD with prior PCI who presented to ED with abnormal speech. Initial Head imaging negative for acute IC finding. Troponin came back elevated and cardiology consultation is requested. Troponin: 160.5->223.5. EKG showed atrial fibrillation with controlled rate, no acute ST/T wave changes. The patient denies chest pain or SOB. CHARLIEA/sister Ayla Ace phone [phone]. Subjective: Denies any chest pain or shortness of breath Objective:Vital SignsDate Temp Pulse Resp B/P B/P Mean Pulse Ox GqN821/06-06/06 97.5-98.2 57-72 14-16 105-162/55-86 71.8-111.4 94-99 Current [...] ill-looking male, appear confused, hx provided by [facility]. The patient has PMH of CVA, AFib [...] CAD with prior stentleaning toward Type II WY in the setting of possible TIA or [...] daily Stop amlodipine CHARLIEA/sister Ayla Ace phone [phone]. No further cardiac workup. Outpatient follow-up with [...] with any questions or concerns. Sammie Johnson [facility] RADIOLOGY SCHEDULER Dr. Sarah Chavez MD-Attending CardiologistSCoulee Medical Center Cardiology at 1452 at 4259 RPT #: [id number] OF REPORT PRProgress kqlm1283-83-28Y88:53:00L.JFND74587660-4149URRahnj able for patient qwcbDEMHBKNZPZXTSL3026-28-87R12:55:41 [facility] 2022-06-06 12:01:00 JF4478384175VdltanqQ glBZa9KTkb0FgufZYMaEKYG6dsemF 8TgLY64C0Q5vUNyRi9h4d9ihEzn0975-48-26S21:01:00 [facility] ([facility])Hospitalist Progress NoteREPORT#:[id number] REPORT STATUS: SignedDATE:06/06/22 TIME:1201 PATIENT: FRAN SANTAMARIA UNIT #: [id number]#: [id number] [address] AGE: 71 SEX: M ATTEND: Cheikh Gutierrez [facility] AUTHOR: Cheikh Gutierrez MD * ALL [...] capillary refill, no cyanosis, no edemaMusculoskeletal: normal inspectionNeuro/SNOW RANGER: right hemiparesis, alert, oriented X 3, normal [...] significant acute abnormality 2. Elevated troponin-type II [place] trended troponin x3 Monitor on the telemetry [...] Family appealed discharge at 1208 RPT #: [id number] OF REPORT PRProgress utjo6545-16-62Z60:01:00L.MQKL44477948-5710NRPmork able for patient yqapAYXQNEONVXYQDT8364-93-09Z95:08:27 [facility] 2022-06-06 10:03:00 WD7637163357RqFfUabx 4hlaisapXyIhxpQhFA/EikABwVB+T ehusE2frToCo7imdYv+CmTbAhgz0691-21-22R89:03:00 [facility] ([facility])Infectious Dis. Progress NoteREPORT#:[id number] REPORT STATUS: SignedDATE:06/06/22 TIME:1003 PATIENT: FRAN SANTAMARIA UNIT #: [id number]#: [id number] [address] AGE: 71 SEX: M ATTEND: Cheikh Gutierrez [facility] AUTHOR: Evelyn Jiménez MD * ALL [...] Pulse Resp B/P B/P Mean Pulse Ox AjB704/-06/06 36.4-36.8 60-72 14-17 101-162/51-86 67.6-111.4 94-99 Last [...] painExtremities: no clubbing, no cyanosisMusculoskeletal: no joint swellingNeuro/SNOW RANGER: altered mental statusSkin: Multiple signs of exciriations [...] off ABConsultants: cardiology at 1326 RPT #: [id number] OF REPORT PRProgress xmwf8270-48-94S25:03:00L.ACFT23156619-3092TWZaxzz able for patient pvboXJEJXGDUGJLXXN6309-51-78G00:27:09 [facility] 2022-06-05 19:39:00 GC9636430602mo7JJJIQ XoZScmJxSSBiJ/C5+iuXq7DCixVul vd/ZeHXOwuJI/8gex/T9FFOguen3168-74-68E59:39:00 [facility] ([facility])Wound Care Progress NoteREPORT#:[id number] REPORT STATUS: SignedDATE:06/05/22 TIME:1938 PATIENT: FRAN SANTAMARIA UNIT #: [id number]#: [id number] [address] AGE: 71 SEX: M ATTEND: Cheikh Gutierrez [facility] AUTHOR: Yakov Kate MD * ALL [...] status Consultants: cardiology at 1945 RPT #: [id number] OF REPORT PNProcedure oest2774-48-34I40:39:00L.ITOK52965742-8517KUEwhzp able for patient jwuiTFTDQMBMQAUQSY5766-76-38N87:45:37 [facility] 2022-06-05 14:40:00 VW4115323423RTOhTsY3 3UvwdUUvJrjSkN6/8a9ZRiqJ7lsxo +GbU2dhOkF5FpO3Xs7Ld2RFhf+S3530-94-64D53:40:00 [facility] Progress NoteREPORT#:[id number] REPORT STATUS: SignedDATE:06/05/22 TIME:1440 PATIENT: FRAN SANTAMARIA UNIT #: [id number]#: [id number] [address] AGE: 71 SEX: M ATTEND: Cheikh Gutierrez [facility] AUTHOR: Sammie Johnson APRN * ALL [...] pain or SOB. MPOA/sister Ayla Ace phone [phone]. Subjective: Denies any chest pain or shortness [...] ill-looking male, appear confused, hx provided by [facility]. The patient has PMH of CVA, AFib [...] CAD with prior stentleaning toward Type II WY in the setting of possible TIA or [...] daily Stop amlodipine BIANCA/sister Ayla Ace phone [phone]. No further cardiac workup. Outpatient follow-up with [...] with any questions or concerns. Sammie Johnson [facility] RADIOLOGY SCHEDULER Dr. Sarah Chavez MD-Attending CardiologistSCoulee Medical Center Cardiology at 1711 at 1000 RPT #: [id number] OF REPORT PRProgress xpmx8885-08-34I88:40:00L.TGRL44238726-0722INIjogb able for patient zmyiJWKSEJGVUPUHGF5465-97-51B98:12:01 [facility] 2022-06-05 11:27:00 [id number] cc3RFxopdwO9q9hVaGvoEPMLdTBRV 606SKN3q7x7gmDVkCc83qU9G/SY3948-46-53V51:27:00 [facility] ([facility])Infectious Dis. Progress NoteREPORT#:[id number] REPORT STATUS: SignedDATE:06/05/22 TIME:1127 PATIENT: FRAN SANTAMARIA UNIT #: [id number]#: [id number] [address]CEE: [address] AGE: 71 SEX: M ATTEND: Cheikh Gutierrez [facility] AUTHOR: Evelyn Jiménez MD * ALL [...] painExtremities: no clubbing, no cyanosisMusculoskeletal: no joint swellingNeuro/SNOW RANGER: altered mental statusSkin: Multiple signs of scratching in the legs and armsPsychiatry: abnl judgment/insight Diagnosis, Assessment PlanFree Text A P:Laboratory Tests 06/03/22 0450:[Embedded Image Not Available] Imaging:MRI brain reviewed 05/30CXR reviewed 05/29 Assessment:1. Rash. UE/LE2. Encephalopathy. Plan:1. the clinical findings are less likely to be c/w scabies, possible bedbugs.2. Recommend infection control evaluation.3. Monitor CBC and temperature.4. wound careConsultants: cardiology at 1449 [facility] #: [id number] OF REPORT PRProgress wqmu9960-43-88J72:27:00L.YGDO29211152-9579VXAxijd able for patient qzibQZWNYFRZHWJHBS4368-58-01S88:50:20 [facility] 2022-06-05 10:27:00 NI3812469099ggJZMmtA lX51OClYv7VaUyui6RnnDcgU2NDeh +BQIAOwzFvfc6hkosdaD9KB+wgR7296-64-58F87:27:00 [facility]ospital[facility] Progress NoteREPORT#:[id number] REPORT STATUS: SignedDATE:06/05/22 TIME:1027 PATIENT: FRAN SANTAMARIA UNIT #: [id number]#: [id number] [address] AGE: 71 SEX: M ATTEND: Cheikh Gutierrez [facility] AUTHOR: Cheikh Gutierrez MD * ALL [...] capillary refill, no cyanosis, no edemaMusculoskeletal: normal inspectionNeuro/SNOW RANGER: right hemiparesis, alert, oriented X 3, normal [...] significant acute abnormality 2. Elevated troponin-type II [place] trended troponin x3 Monitor on the telemetry [...] placement is arranged at 1028 RPT #: [id number] OF REPORT PRProgress bmij9934-54-75O47:27:00L.XTDE48514019-7344EIDfecn able for patient fhaqENDIPNIKSUJKPG0738-76-81B17:29:32 [facility] 2022-06-04 21:32:00 HF19230881789MFKIUHk TaDzTJ1NCxKwl3qr2+fRAHGdfP5f3 mbfQxB0UCfoUlzaO2x/cXEeONdU8301-44-66C29:32:00 [facility])Wound Care Consultation NoteREPORT#:[id number] REPORT STATUS: SignedDATE:06/04/22 TIME:2131 PATIENT: FRAN SANTAMARIA UNIT #: [id number]#: [id number] [facility] AGE: 71 SEX: M ATTEND: Cheikh [...] rubRespiratory: symmetric expansionExtremities: no edemaMusculoskeletal: fair muscle toneNeuro/SNOW RANGER: disorientedSkin: lesions (multiple abrasions) Wound AssessmentWound Assessment [...] Altered mental status at 2225 RPT #: [id number] OF REPORT ZKCjjhrzgjhxyj5066-49-43X24:32:00L.EDRY59463173-1 281AVAvailable for patient otmyTXKALYDHEXFVAT4512-33-01O64:25:34 [facility] 2022-06-04 14:23:00 AI8212899159cSBqjOi9 5iRtrltVWmfUGm33r9lu5aGVmuAcF NhPMiLyjYnRTWMUNBqq7ZDDpPgt6077-91-53D31:23:00 [facility] ([facility])Hospitalist Progress NoteREPORT#:[id number] REPORT STATUS: SignedDATE:06/04/22 TIME:1423 PATIENT: FRAN SANTAMARIA UNIT #: [id number]#: [id number] [address] AGE: 71 SEX: M ATTEND: Cheikh Gutierrez [facility] AUTHOR: Cheikh Gutierrez MD * ALL [...] capillary refill, no cyanosis, no edemaMusculoskeletal: normal inspectionNeuro/SNOW RANGER: right hemiparesis, alert, oriented X 3, normal [...] (Auto) (20.5 - 51.1 %) 13.6 L [place] % (Auto) (1.7 - 9.3 %) 10.3 H Eos % (Auto) (0.0 - 6.0 %) 4.9 Baso % (Auto) (0.0 - 2.0 %) 1.0 Neut # (Auto) (1.8 - 7.6 K/mm3) 4.2 Lymph # (Auto) (0.6 - 3.0 K/mm3) 0.8 [place] # (Auto) (0.2 - 1.5 K/mm3) 0.6 [...] significant acute abnormality 2. Elevated troponin-type II [place] trended troponin x3 Monitor on the telemetry [...] placement is arranged at 1424 RPT #: [id number] OF REPORT PRProgress jtyo3658-56-69C67:23:00L.QSFH50102686-8203EURbqju able for patient lfrsAKREHIVYZUQVFB2003-76-26G99:25:01 [facility] 2022-06-04 09:10:00 OR8894581780fXgjP9VK tfGx9+pEc/HL7IYvXU9uHwvTyk9zS zjsOaFIcyKI435bzQWBAgsiAeua2344-85-11A67:10:00 [facility])Cardiology Progress NoteREPORT#:[id number] REPORT STATUS: SignedDATE:06/04/22 TIME:0910 PATIENT: FRAN SANTAMARIA UNIT #: [id number]#: [id number] ROOM/BED: W860-3PKU: 50 AGE: 71 SEX: M ATTEND: Cheikh Gutierrez [facility] AUTHOR: Sheree JuniorP * ALL edits [...] assessment: no calf tenderness, no edemaMusculoskeletal: decreased ROMNeuro/SNOW RANGER: alert (confused)Skin: poor skin turgorPsychiatry: abnl judgment/insight, [...] ill-looking male, appear confused, hx provided by [facility]. The patient has PMH of CVA, AFib [...] CAD with prior stentleaning toward Type II [place] in the setting of possible TIA or [...] no congestive symptoms MPOA/sister Ayla Ace phone [phone]. No further cardiac workup. Outpatient follow-up with Dr. Chavez in 2 weeks. at 1104 at 1000 RPT #: [id number] OF REPORT PRProgress wgay7524-80-83W95:10:00L.ZENF62606627-1888EPEefgj able for patient hzcuVAEZPBNKABRMUN6110-62-28L67:05:06 [facility] 2022-06-03 19:16:00 [id number]+CDHig cx4Ut2/D/LVSeZ81MJ+clk/f3HmNI 4FzVW01upxPCUpHtqcYOtatEiUF1823-48-37I81:16:00 [facility] ([facility])Infect Disease Consult NoteREPORT#:[id number] REPORT STATUS: SignedDATE:06/03/22 TIME:1915 PATIENT: FRAN SANTAMARIA UNIT #: [id number]#: [id number] ROOM/BED: [place].E735-3JFL: 50 AGE: 71 SEX: M ATTEND: Cheikh [...] residentAllergies:Coded Allergies:No Known Allergies (05/29/22) 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 at 1107 RPT #: [id number] OF REPORT OXUabjyhlnfpsh9932-11-36G77:16:00L.KGMH76702775-2 202AVAvailable for patient dssoJMWWLQXFWGEAZA5540-88-60Y26:07:46 [facility] 2022-06-03 11:15:00 [id number] RRtA3Fy8ox5N8C2YJi4WCgoRTGrea pwoFEzkZrk21uXgEqcJhE4ldzYZ8040-38-38A58:15:00 [facility] ([facility]Ne[facility] Progress NoteREPORT#:[id number] REPORT STATUS: SignedDATE:06/03/22 TIME:1115 PATIENT: FRAN SANTAMARIA UNIT #: [id number]#: [id number] [facility] AGE: 71 SEX: M ATTEND: Cheikh [...] or swellingRespiratory: aerating well, no distressExtremities: moves allNeuro/SNOW RANGER: alert, oriented X 4, normal speech, EOMINeuro [...] (Auto) (20.5 - 51.1 %) 13.4 L [place] % (Auto) (1.7 - 9.3 %) 9.3 Eos % (Auto) (0.0 - 6.0 %) 7.9 H Baso % (Auto) (0.0 - 2.0 %) 1.0 Neut # (Auto) (1.8 - 7.6 K/mm3) 5.2 Lymph # (Auto) (0.6 - 3.0 K/mm3) 1.0 [place] # (Auto) (0.2 - 1.5 K/mm3) 0.7 [...] Supportive care.Consultants: cardiology at 2119 RPT #: [id number] OF REPORT PRProgress qdoy0935-23-58R00:15:00L.WTMB72950578-6949KQPasgl able for patient meqhCOMDQUKMVFKZQT8769-26-28F39:20:13 [facility] 2022-06-03 07:46:00 [id number] 5o4iwNYourWUTxdRaa4eTF4jwN/XY 9ZJt4zQzxpl1orXZt3XugFODRup0900-05-78K64:46:00 [facility] ([facility])Hospitalist Progress NoteREPORT#:[id number] REPORT STATUS: SignedDATE:06/03/22 TIME:0746 PATIENT: FRAN SANTAMARIA UNIT #: [id number]#: [id number] [facility]9KZR: 50 AGE: 71 SEX: M ATTEND: Cheikh [...] capillary refill, no cyanosis, no edemaMusculoskeletal: normal inspectionNeuro/SNOW RANGER: right hemiparesis, alert, oriented X 3, normal [...] (Auto) (20.5 - 51.1 %) 13.4 L [place] % (Auto) (1.7 - 9.3 %) 9.3 Eos % (Auto) (0.0 - 6.0 %) 7.9 H Baso % (Auto) (0.0 - 2.0 %) 1.0 Neut # (Auto) (1.8 - 7.6 K/mm3) 5.2 Lymph # (Auto) (0.6 - 3.0 K/mm3) 1.0 [place] # (Auto) (0.2 - 1.5 K/mm3) 0.7 [...] significant acute abnormality 2. Elevated troponin-type II [place] trended troponin x3 Monitor on the telemetry [...] - Consulted CM at 0748 RPT #: [id number] OF REPORT PRProgress uxzc1047-36-93R36:46:00L.QCNT05505454-9171HQSrmqi able for patient xvrlVRJKWDUCRQXROB6878-67-41P93:49:01 [facility] 2022-06-02 11:36:00 [id number] q1A2kSexVVLk9L4Ryn0YexqIURfdO dn5Ghr/DWZfQMGtGx+UUHWwJq0M7476-51-35D54:36:00 [facility] ([facility])Hospitalist Progress NoteREPORT#:[id number] REPORT STATUS: SignedDATE:06/02/22 TIME:1136 PATIENT: FRAN SANTAMARIA UNIT #: [id number]#: [id number] [address] AGE: 71 SEX: M ATTEND: [...] capillary refill, no cyanosis, no edemaMusculoskeletal: normal inspectionNeuro/SNOW RANGER: right hemiparesis, alert, oriented X 3, normal [...] abnormality neuro check 2. Elevated troponin-type II WY trend troponin x3, EKG x3 Monitor on [...] - Consult CM at 1138 RPT #: [id number] OF REPORT PRProgress yslz7997-25-39Z34:36:00L.SJWH88827547-9924SMKyeqw able for patient nfmpRWMCSNWMKUNUCY0936-55-53R96:38:49 [facility] 2022-06-02 10:42:00 [id number]+WuOiLNO 1nKA1ji+oWTwamjuGWFDxhS8ODTUU hhtfGehtwnhLTTbuoZUPQpgNkXv7826-44-78O43:42:00 [facility] ([facility] Progress NoteREPORT#:[id number] REPORT STATUS: SignedDATE:06/02/22 TIME:1041 PATIENT: FRAN SANTAMARIA UNIT #: [id number]#: [id number] [address] [birth year] AGE: 71 SEX: M ATTEND: Cheikh Gutierrez [facility] AUTHOR: Romy Marie MD * ALL [...] or swellingRespiratory: aerating well, no distressExtremities: moves allNeuro/SNOW RANGER: alert, oriented X 4, normal speech, EOMINeuro [...] Down: Left. GaitGait comments:Deferred ResultsFindings/Data:Laboratory Tests 06/02 1612 1122 0780 Chemistry POC Glucose (70 - 110 mg/dL) [...] (Auto) (20.5 - 51.1 %) 11.9 L [place] % (Auto) (1.7 - 9.3 %) 9.6 H Eos % (Auto) (0.0 - 6.0 %) 6.2 H Baso % (Auto) (0.0 - 2.0 %) 0.9 Neut # (Auto) (1.8 - 7.6 K/mm3) 4.6 Lymph # (Auto) (0.6 - 3.0 K/mm3) 0.8 [place] # (Auto) (0.2 - 1.5 K/mm3) 0.6 [...] fully oriented.Consultants: cardiology at 2212 RPT #: [id number] OF REPORT PRProgress svyu0197-34-14O92:42:00L.WGXQ88897508-6367KFOibok able for patient onxtHJBMTGIYHCDOVM2120-48-73D96:12:39 [facility] 2022-06-02 07:21:00 IZ4561385639tYwqDQXs EV8jJFdXrf7b2nTGVzNikm3rLdSLW G2KvYdlAWSByURRdmVnzME6fqR08781-78-22R46:21:32204 3-0019 [facility] [address] [place] [address] PATIENT NAME: FRAN SANTAMARIA ADMIT DATE: 05/30/22ACCOUNT NO: [id number] ROOM NO: [facility] AGE: 71 REPORT TYPE: 360 - QUERY RESPONSE DOCUMENT SEX: M ADMITTING PHYSICIAN: Cheikh Gutierrez MD ATTENDING PHYSICIAN: Cheikh Gutierrez MD Provider Query QUERY TEXT: Clarification Skin Integrity 360MD Query related questions should be directed to: ROBERTO [email or web address] Based on your clinical judgment, please further [...] Elva Valdez on 06/01/2022 12:38 PM at 0797 PATIENT NAME: FRAN SANTAMARIA noteL.QMY64752967-7002SKTzksrfubb for patient nzhwGMHLGMXLTHOGOO9487-61-46U04:22:14 [facility] 2022-06-01 15:41:00 [id number] 9qorqC5YFnZCe25mybNHD/fV53Psf tWC0ViiH6rId6XVCLnC5ORx7Wmj3772-16-61D89:41:00 [facility])Neurology Progress NoteREPORT#:[id number] REPORT STATUS: SignedDATE:06/01/22 TIME:1541 PATIENT: FRAN SANTAMARIA UNIT #: [id number]#: [id number] ROOM/BED: C467-6RHY: 50 AGE: 71 SEX: M ATTEND: Cheikh [...] (Auto) (20.5 - 51.1 %) 13.6 L [place] % (Auto) (1.7 - 9.3 %) 10.9 H Eos % (Auto) (0.0 - 6.0 %) 6.3 H Baso % (Auto) (0.0 - 2.0 %) 0.7 Neut # (Auto) (1.8 - 7.6 K/mm3) 4.0 Lymph # (Auto) (0.6 - 3.0 K/mm3) 0.8 [place] # (Auto) (0.2 - 1.5 K/mm3) 0.6 [...] the consult.05/31 stable; no evidence for new zriwot38/2 review of MRI shows moderate to large area of encephalomalacia in Left superior fromtalarea + what appears to be a meningioma just posterior to this. Concern is that of seizure with postictal confusion. Will add depakote and follow as outpatient in view of difficulty of obtainingEEG on the weekend. at 1914 RPT #: [id number] OF REPORT PRProgress bnbx2495-40-17G83:41:00L.WPST60635706-9207ANVetnn able for patient lkiePAIMKBYWXYABDG3592-85-91S75:14:55 [facility] 2022-06-01 09:47:00 HB4294468779pnUN8EXG jmzhIf/dEEwSGgRP3+EMSx5u1uTI0 iBMtNMSMt2MSGk7N5V84VsYEsPx0609-30-05F54:47:00 [facility] ([facility])Hospitalist Progress NoteREPORT#:[id number] REPORT STATUS: SignedDATE:06/01/22 TIME:0947 PATIENT: FRAN SANTAMARIA UNIT #: [id number]#: [id number] [address]0JWF: 50 AGE: 71 SEX: M ATTEND: Cheikh Gutierrez [facility] AUTHOR: Anneliese Eden MD * ALL [...] capillary refill, no cyanosis, no edemaMusculoskeletal: normal inspectionNeuro/SNOW RANGER: right hemiparesis, alert, oriented X 3, normal [...] (Auto) (20.5 - 51.1 %) 13.6 L [place] % (Auto) (1.7 - 9.3 %) 10.9 H Eos % (Auto) (0.0 - 6.0 %) 6.3 H Baso % (Auto) (0.0 - 2.0 %) 0.7 Neut # (Auto) (1.8 - 7.6 K/mm3) 4.0 Lymph # (Auto) (0.6 - 3.0 K/mm3) 0.8 [place] # (Auto) (0.2 - 1.5 K/mm3) 0.6 [...] abnormality neuro check 2. Elevated troponin-type II WY trend troponin x3, EKG x3 Monitor on [...] [facility] - Consult at 0949 RPT #: [id number] OF REPORT PRProgress apxw9811-43-57F85:47:00L.VICY88904924-8141HDSmsqt able for patient sssbTAOANYHHVXHSFI8879-25-62Y39:49:35 [facility] 2022-06-01 08:41:00 VP8585874042tPUL8sm5 c7x/u7W146FDtL/bsSz8ZO5IereSJ JK+QWVnapWGaBKA6q1S6spjr8Jg6659-77-11E22:41:00 [facility] NoteREPORT#:[id number] REPORT STATUS: SignedDATE:06/01/22 TIME:0841 PATIENT: FRAN SANTAMARIA UNIT #: [id number]#: [id number] [address]: [birth year] AGE: 71 SEX: M ATTEND: Cheikh Gutierrez [facility] AUTHOR: Sammie Johnson APRN * ALL [...] ill-looking male, appear confused, hx provided by [facility]. The patient has PMH of CVA, AFib on Eliquis, CAD with prior PCI who presented to ED with abnormal speech. Initial Head imaging negative for acute IC finding. Troponin came back elevated and cardiology consultation is requested. Troponin: 160.5->223.5. EKG showed atrial fibrillation with controlled rate, no acute ST/T wave changes. The patient denies chest pain or SOB. [facility]/sister Ayla Ace phone [phone]. Subjective: Denies any chest pain or shortness [...] ill-looking male, appear confused, hx provided by [facility]. The patient has PMH of CVA, AFib [...] CAD with prior stentleaning toward Type II WY in the setting of possible TIA or [...] daily Stop amlodipine CHARLIEA/sister Ayla Ace phone [phone]. No further cardiac workup. Outpatient follow-up with [...] with any questions or concerns. Sammie Johnson [facility] RADIOLOGY SCHEDULER Dr. Sarah Chavez MD-Attending CardiologistSCoulee [facility] Cardiology at 1120 at 1821 RPT #: [id number] OF REPORT PRProgress tvyk8410-35-19L01:41:00L.CUXX71412356-0799WZJouyy able for patient vixwNJBFCPNIBWKUGJ6174-35-79T12:21:07 [facility] 2022-05-31 15:33:00 [id number]+/v9E/H 02kruBSY/TmPeF0fOuM5ocPrHrnnO l4aN4RWF5b7w9ARey6rKESb1kzz3340-79-41X62:33:00 [facility])Neurology Progress NoteREPORT#:[id number] REPORT STATUS: SignedDATE:05/31/22 TIME:1533 PATIENT: FRAN SANTAMARIA UNIT #: [id number]#: [id number] [address] AGE: 71 SEX: M ATTEND: [...] (0.8 - 1.2 INR Unit) 1.12 PTT ([place]) (26 - 35 SECONDS) 84.9 H 37.0 [...] (Auto) (20.5 - 51.1 %) 14.4 L [place] % (Auto) (1.7 - 9.3 %) 9.1 Eos % (Auto) (0.0 - 6.0 %) 7.1 H Baso % (Auto) (0.0 - 2.0 %) 0.8 Neut # (Auto) (1.8 - 7.6 K/mm3) 4.0 Lymph # (Auto) (0.6 - 3.0 K/mm3) 0.9 [place] # (Auto) (0.2 - 1.5 K/mm3) 0.5 [...] for new stroke at 1744 RPT #: [id number] OF REPORT PRProgress cwmo0826-50-46H15:33:00L.XGHM02895857-0365MVUeuzd able for patient rmpkJQVQZOWAAQIJSE5029-13-69G29:45:07 [facility] 2022-05-31 14:55:00 [id number] LblADCV9Jxu+Z343Ks9yKPYzkROix teGabqvgq0d+O6rGg6OB7Dsr4ly2767-18-69S30:55:00 [facility] ([facility])Hospitalist Progress NoteREPORT#:[id number] REPORT STATUS: SignedDATE:05/31/22 TIME:1455 PATIENT: FRAN SANTAMARIA UNIT #: [id number]#: [id number] [facility] 50 AGE: 71 SEX: M ATTEND: Cheikh [...] capillary refill, no cyanosis, no edemaMusculoskeletal: normal inspectionNeuro/SNOW RANGER: right hemiparesis, alert, oriented X 3, normal [...] (0.8 - 1.2 INR Unit) 1.12 PTT ([place]) (26 - 35 SECONDS) 84.9 H 37.0 [...] (Auto) (20.5 - 51.1 %) 14.4 L [place] % (Auto) (1.7 - 9.3 %) 9.1 Eos % (Auto) (0.0 - 6.0 %) 7.1 H Baso % (Auto) (0.0 - 2.0 %) 0.8 Neut # (Auto) (1.8 - 7.6 K/mm3) 4.0 Lymph # (Auto) (0.6 - 3.0 K/mm3) 0.9 [place] # (Auto) (0.2 - 1.5 K/mm3) 0.5 [...] abnormality neuro check 2. Elevated troponin-type II WY trend troponin x3, EKG x3 Monitor on [...] [facility] RPT #: [id number] OF REPORT PRProgress uwbg4090-15-58I99:55:00L.YDQZ33363913-7486QWBdmvd able for patient hjihBMVGJVOLHVEPUG2410-15-13E21:58:26 [facility] 2022-05-31 10:46:00 [id number] e89c+/wzu7d6p3X+dqot0AIp6COvd Kwb3FMo0/x2GYoPOqZToNO3DzI28483-11-66U87:46:00 [facility])Discharge SummaryREPORT#:[id number] REPORT STATUS: SignedDATE:05/31/22 TIME:1046 PATIENT: FRAN SANTAMARIA UNIT #: [id number]#: [id number] [address]-1ZZN: 50 AGE: 71 SEX: M ATTEND: Cheikh Gutierrez [facility] AUTHOR: Anneliese Eden MD * ALL [...] abnormality neuro check 2. Elevated troponin-type II WY trend troponin x3, EKG x3 Monitor on [...] abnormality neuro check 2. Elevated troponin-type II WY trend troponin x3, EKG x3 Monitor on [...] normal heart soundsGI: softMusculoskeletal: full range of motionNeuro/SNOW RANGER: alert, no motor deficits Discharge Instructions PCPPCP:PCP: [...] Eden MD Patient is going to personal shelter, stable condition, total time 32 minutes at 1238 Addendum 2: 06/11/22 1109 by Anneliese Eden MD Patient is stable to be discharged today at 1109 RPT #: [id number] OF REPORT DSDischarge omklndb5923-99-20R10:46:00L.XFNF23727035-9644CNNo ailable for patient bignHKXKEHPEMUGGVX1473-04-99Z97:49:57 [facility] 2022-05-31 09:04:00 [id number] PrQTh5+y0BbxjEQj3VUAdHezn/MJF 6SRQh+ZG2gpOM6QyVkZEeJY79q21703-37-38H74:04:00 [facility])Cardiology Progress NoteREPORT#:[id number] REPORT STATUS: SignedDATE:05/31/22 TIME:0904 PATIENT: FRAN SANTAMARIA UNIT #: [id number]#: [id number] ROOM/BED: W512-7HJB: 50 AGE: 71 SEX: M ATTEND: Cheikh [...] assessment: no calf tenderness, no edemaMusculoskeletal: decreased ROMNeuro/SNOW RANGER: alert (confused)Skin: poor skin turgorPsychiatry: abnl judgment/insight, normal mood ResultsFindings/Data:Laboratory Tests 05/31 05/30 05/30 05/30 0430 1730 1635 1155 Chemistry POC Glucose (70 - 110 mg/dL) 188 H 103 Troponin I High Sens (0 - 54 ng/L) 61.6 H 100.1 H Laboratory Tests 05/31 05/30 05/30 05/30 0701 2239 2239 1255 Coagulation INR (0.8 - 1.2 INR Unit) 1.12 PTT ([place]) (26 - 35 SECONDS) 84.9 H 37.0 [...] (Auto) (20.5 - 51.1 %) 14.4 L [place] % (Auto) (1.7 - 9.3 %) 9.1 Eos % (Auto) (0.0 - 6.0 %) 7.1 H Baso % (Auto) (0.0 - 2.0 %) 0.8 Neut # (Auto) (1.8 - 7.6 K/mm3) 4.0 Lymph # (Auto) (0.6 - 3.0 K/mm3) 0.9 [place] # (Auto) (0.2 - 1.5 K/mm3) 0.5 [...] CAD with prior stentleaning toward Type II WY in the setting of possible TIA or [...] daily Stop amlodipine MPOA/sister Ayla Ace phone [phone]. No further cardiac workup. Outpatient follow-up with Dr. Chavez in 2 weeks. at 1232 at 1821 RPT #: [id number] OF REPORT PRProgress xevl2493-07-70N93:04:00L.PIUT98475292-1521GUBykvf able for patient nqjmAARRAGVTGBUHLI2750-01-99H56:32:33 [facility] 2022-05-30 17:35:00 CU20733051504hurIFlG UckbVb/nZYweyPi6jZ990LTF0bMbG 8qDHYqxgdU4KTUATH2e5wwhMCXB4611-54-31Q13:35:65101 0-0215 [facility] [address] [place] [address] PATIENT NAME: FRAN SANTAMARIA ADMIT DATE: 05/30/22ACCOUNT NO: [id number] ROOM NO: [facility] AGE: 71 REPORT TYPE: eECHOCARDIOGRAM REPORT SEX: M ADMITTING PHYSICIAN: Cheikh Gutierrez MD ATTENDING PHYSICIAN: Cheikh Gutierrez MD *[facility]*[address] [place], [place] [address]Cmmdm Transthoracic Echocardiogram Patient: Fran Santamaria LStudy Date: 05/30/2022 BP: 131 / 85 [facility] [id number] 1950 Age: 71 Height: 74 in / 188 cmAccession#: [id number] Gender: M Weight: 73 lb / 33.2 kgBMI/BSA: 9.4 kg/m 2 / 1.27 m 2 *Ordering Physician: * Eddi Hoff *Interpreting Physician: * Sarah Chavez MD*Claim Attorney: * Alice Slaughter Indications: NSTEMI. Study data: Transthoracic echocardiogram. Procedure: Transthoracicechocardiography was performed. Image quality was adequate. Wpshuwfl5A, complete spectral Doppler, and color Doppler. Location: [...] at 1735 PATIENT NAME: FRAN SANTAMARIA :35:0 0L.CKU34472809-2109TMXvagjgvbd for patient vzpkDKHCMAPCIZGMRK0031-67-97Z93:36:02 [facility] 2022-05-30 12:01:00 [id number] qvTvay8vV2pKCrhkd2UU02vG2s/Dy KeKvv6b6zKPqaSH0DOr5QQkO4wZ3083-27-68J06:01:00 [facility] ([facility])Neurology Consultation NoteREPORT#:[id number] REPORT STATUS: SignedDATE:05/30/22 TIME:1201 PATIENT: FRAN SANTAMARIA UNIT #: [id number]#: [id number] ROOM/BED: B817-2XVA: 50 AGE: 71 SEX: M ATTEND: Cheikh Gutierrez [facility] AUTHOR: Va Carroll HELMINTHOLOGIST * ALL edits or amendments must be [...] status. Patient is accompanied by his assistance fsztojp-wv-dnr. Reportedly sister stated she noticed a change [...] is to follow-up with neurologist at the [facility]. He has not beenseen by the neurologist there in a few years. Patient reports that the last timehe waled was 6 t0urvii. History - Adult longitudinalPast medical history:Reports: Atrial fibrillation, Coronary artery disease, Hypertension, Ischemic stroke. Additional medical history:CVA, hypertension, atrial fibrillation, diabetes mellitus, coronary artery diseasePast surgical history:Reports: PCI. Family history:Reports: Diabetes. 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 Denies: dizziness, [...] or swellingRespiratory: aerating well, no distressExtremities: moves allNeuro/SNOW RANGER: altered mental status, alert, normal speech, EOMINeuro [...] - 51.1 %) 14.0 L 7.6 L [place] % (Auto) (1.7 - 9.3 %) 12.2 H 9.4 H Eos % (Auto) (0.0 - 6.0 %) 9.6 H 1.2 Baso % (Auto) (0.0 - 2.0 %) 1.2 0.7 Neut # (Auto) (1.8 - 7.6 K/mm3) 4.1 6.9 Lymph # (Auto) (0.6 - 3.0 K/mm3) 0.9 0.7 [place] # (Auto) (0.2 - 1.5 K/mm3) 0.8 [...] 7.0 pH UNITS) 7.5 H Ur Specific [place] (1.005 - 1.030 SG) <=1.005 Urine Protein [...] consult. at 1532 at 1554 RPT #: [id number] OF REPORT MISejdpuvjdfse6817-39-31E01:01:00L.UWZK82251922-0 128AVAvailable for patient fgycGEQJXBBCBNQYFC5655-35-95N73:33:28 [facility] 2022-05-30 10:51:00 ZZ6783105849j2Xo5lIF NuB72fbLqa6Ot2UZWFPAWu9GSh8/f /GL1C8gZOTo//62m+abp3SGwNVD0050-10-15X31:51:00 [facility]Clinical NoteREPORT#:[id number] REPORT STATUS: SignedDATE:05/30/22 TIME:1051 PATIENT: FRAN SANTAMARIA UNIT #: [id number]#: [id number] [address] AGE: 71 SEX: M ATTEND: Cheikh Gutierrez [facility] AUTHOR: Eddi Hoff MD * ALL edits or amendments must be made on the electronic/computer document * Clinical NoteNote:Admitted director blood bank for possible TIA/CVA.Patient has had multiple CVAs [...] is full code at 1053 RPT #: [id number] OF REPORT CLClinical tqkc7624-55-40K14:51:00L.UFFF11290216-7589YAWbmhv able for patient msdfIETDXGTTYDZSIG4380-96-38F62:54:02 [facility] 2022-05-30 10:15:00 [id number] jjSZwrMAvLWNgKEXVHtfi5rtctzRJ 8jzJ2HemhNMtZq2BYiz/HFCF8nY2090-75-89F72:15:00 [facility])Cardiology ConsultationREPORT#:[id number] REPORT STATUS: SignedDATE:05/30/22 TIME:1015 PATIENT: FRAN SANTAMARIA UNIT #: [id number]#: [id number] [facility] 50 AGE: 71 SEX: M ATTEND: Cheikh Gutierrez [facility] AUTHOR: Sheree Junior * ALL edits or amendments must be made on the electronic/computer document * History of Present Illness HPIRequesting Clinician: Dr. Noriega for consult:Elevated troponinChief complaint:speech abnormalityPCP:PCP: No Primary or Family Physician HPI:71 YO male chronically ill-looking male, appear confused, hx provided by [facility]. The patient has PMH of CVA, AFib on Eliquis, CAD with prior PCI who presented to ED with abnormal speech. Initial Head imaging negative for acute IC finding. Troponin came back elevated and cardiology consultation is requested. Troponin: 160.5->223.5. EKG showed atrial fibrillation with controlled rate, no acute ST/T wave changes. The patient denies chest pain or SOB. MPOA/sister Ayla Ace phone [phone]. History - Adult longitudinalPast medical history:Reports: Atrial fibrillation, Coronary artery disease, Hypertension, Ischemic stroke. Additional medical history:CVA, hypertension, atrial fibrillation, diabetes mellitus, coronary artery diseasePast surgical history:Reports: PCI. Family history:Reports: Diabetes. 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 Objective GeneralVS/I O:Vital Signs: Date Time Temp [...] assessment: no calf tenderness, no edemaMusculoskeletal: decreased ROMNeuro/SNOW RANGER: alertSkin: poor skin turgorPsychiatry: abnl judgment/insight, normal [...] - 51.1 %) 14.0 L 7.6 L [place] % (Auto) (1.7 - 9.3 %) 12.2 H 9.4 H Eos % (Auto) (0.0 - 6.0 %) 9.6 H 1.2 Baso % (Auto) (0.0 - 2.0 %) 1.2 0.7 Neut # (Auto) (1.8 - 7.6 K/mm3) 4.1 6.9 Lymph # (Auto) (0.6 - 3.0 K/mm3) 0.9 0.7 [place] # (Auto) (0.2 - 1.5 K/mm3) 0.8 [...] 7.0 pH UNITS) 7.5 H Ur Specific [place] (1.005 - 1.030 SG) <=1.005 Urine Protein [...] ill-looking male, appear confused, hx provided by [facility]. The patient has PMH of CVA, AFib [...] CAD with prior stentleaning toward Type II WY in the setting of possible TIA or [...] 6. Hypertensioncontinue BB MPOA/sister Ayla Ace phone [phone]. Appreciate the referral. at 1448 at 1821 RPT #: [id number] OF REPORT ZRQuxcwescnkds0390-66-29A14:15:00L.FPMI15966725-0 049AVAvailable for patient qdebVILPLPLAVDHBOQ9844-57-53I61:48:41 [facility] 2022-05-30 02:35:00 VH2657217438C4D5nuwp Rup1o12hLw3U9mcLdmmmvrffwQdpK dBLarSnJawXMH5Tf3RMu4zyVV3W6978-72-89P71:35:00 [facility] ([facility])Hospitalist History PhysicalREPORT#:[id number] REPORT STATUS: SignedDATE:05/30/22 TIME:0235 PATIENT: FRAN SANTAMARIA UNIT #: [id number]#: [id number] [facility]-5XME: 50 AGE: 71 SEX: M ATTEND: Cheikh Gutierrez [facility] AUTHOR: Lucas Cueto * ALL edits [...] Allergies:Coded Allergies:No Known Allergies (05/29/22) 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 Review of SystemsConstitutional:Denies: chills, fatigue, fever, generalized [...] capillary refill, no cyanosis, no edemaMusculoskeletal: normal inspectionNeuro/SNOW RANGER: right hemiparesis, alert, oriented X 3, normal [...] (Auto) (20.5 - 51.1 %) 7.6 L [place] % (Auto) (1.7 - 9.3 %) 9.4 H Eos % (Auto) (0.0 - 6.0 %) 1.2 Baso % (Auto) (0.0 - 2.0 %) 0.7 Neut # (Auto) (1.8 - 7.6 K/mm3) 6.9 Lymph # (Auto) (0.6 - 3.0 K/mm3) 0.7 [place] # (Auto) (0.2 - 1.5 K/mm3) 0.8 [...] 7.0 pH UNITS) 7.5 H Ur Specific [place] (1.005 - 1.030 SG) <=1.005 Urine Protein [...] tPA or neuro intervention h/o massive CVA s5zxdov head CT/CTA ruled out neuro vitals Hemoglobin [...] drip. at 0513 at 1405 RPT #: [id number] OF REPORT HPHistory and physical euldxvaumwu4141-29-10H56:35:00L.ZQUT39648455-6246 AVAvailable for patient apfdLBSYZZPDVFASVM8423-39-87T04:07:20 [facility] 2022-05-29 13:59:00 [id number] wgQ1vui5dE88D9BhBn6YAl70sMOS4 zrcr6XmLtniNmL7SVtm81d79sRX7798-95-59B66:59:00 [facility] ([facility])EMERGENCY PROVIDER REPORTREPORT#:[id number] REPORT STATUS: SignedDATE:05/29/22 TIME:1359 PATIENT: FRAN SANTAMARIA Farheen UNIT #: [id number]#: [id number] ROOM/BED: FarheenT686-4GHA: 50 AGE: 71 SEX: M PCP PHYS: [...] spoke with the patient's sister (Clarice Ace [phone]). The patient waslast seen at his normal [...] (0.8 - 1.2 INR Unit) 1.12 PTT ([place]) (26 - 35 SECONDS) 28.9 PT Patient/Control [...] (Auto) (20.5 - 51.1 %) 7.6 L [place] % (Auto) (1.7 - 9.3 %) 9.4 H Eos % (Auto) (0.0 - 6.0 %) 1.2 Baso % (Auto) (0.0 - 2.0 %) 0.7 Neut # (Auto) (1.8 - 7.6 K/mm3) 6.9 Lymph # (Auto) (0.6 - 3.0 K/mm3) 0.7 [place] # (Auto) (0.2 - 1.5 K/mm3) 0.8 [...] 7.0 pH UNITS) 7.5 H Ur Specific [place] (1.005 - 1.030 SG) <=1.005 Urine Protein [...] plan at 0139 at 0242 RPT #: [id number] OF REPORTEDEmergency department xwcdpd7751-91-41F22:59:00L.SSZH59658851-4712FOWwz ilable for patient ywsfIKGQMDUESXURLG5595-48-41M46:39:40 [facility] 2018-08-10 10:22:00 [id number] 04iDuUClYHVgTUwdgxPvELMH2uqEb 0m/v8dToYmxQXqjQzMx8htFbB4WG4Firc6745-66-42Q91:22 :00 [facility] NoteREPORT#:[id number] REPORT STATUS: SignedDATE:08/10/18 TIME:1022 PATIENT: FRAN SANTAMARIA UNIT #: [id number]#: [id number] [address] AGE: 67 SEX: M ATTEND: [...] (Auto) (20.5 - 51.1 %) 14.0 L [place] % (Auto) (1.7 - 9.3 %) 11.1 H Eos % (Auto) (0.0 - 6.0 %) 8.9 H Baso % (Auto) (0.0 - 2.0 %) 0.5 Neut # (Auto) (1.8 - 7.6 K/mm3) 4.27 Lymph # (Auto) (0.6 - 3.0 K/mm3) 0.9 [place] # (Auto) (0.2 - 1.5 K/mm3) 0.7 [...] getting discharged today. at 1024 RPT #: [id number] OF REPORT PRProgress Whxv9900-16-77U36:22:00L.HQWI47877668-2718MTBcrgc able for patient spdtQREZSTGKCDHOEA7700-78-75D11:24:41 [facility] 2018-08-10 09:17:00 SElurfcymkb3609528sf 6cQUCc/+M/Wt4qwZcqyYidWhrJ10U PTmqqalnG+OwCcbV/zdxE6F9dNJoYJLzz5699-65-95K48:17 :00 [facility] ([facility])Discharge SummaryREPORT#:[id number] REPORT STATUS: SignedDATE:08/10/18 TIME:916 PATIENT: FRAN SANTAMARIA UNIT #: [id number]#: [id number] [address] AGE: 67 SEX: M ATTEND: Cheikh Gutierrez AUTHOR: Jaydon Lester RADIOLOGY SCHEDULER * ALL edits or amendments must be [...] of DVTMusculoskeletal: full range of motion, normal inspectionNeuro/SNOW RANGER: alert, oriented X 3, normal gait, normal speech, no motor deficits, no sensory deficitsGlasgow Coma Score: [place] Coma Score: Response Value [place] eyes: eyes open spontaneously 4 [place] speech: oriented 5 [place] motor: obeys commands 6 Total 15 Skin: [...] (Auto) (20.5 - 51.1 %) 14.0 L [place] % (Auto) (1.7 - 9.3 %) 11.1 H Eos % (Auto) (0.0 - 6.0 %) 8.9 H Baso % (Auto) (0.0 - 2.0 %) 0.5 Neut # (Auto) (1.8 - 7.6 K/mm3) 4.27 Lymph # (Auto) (0.6 - 3.0 0.9K/mm3) [place] # (Auto) (0.2 - 1.5 K/mm3) 0.7 [...] Results: labs reviewed at 0927 RPT #: [id number] OF REPORT DSDischarge lcqpqdd8474-59-66L40:17:00L.MXCZ96081330-7334KRHv ailable for patient yixtVTSNDAFGPYCLHO3440-64-31M80:27:20 [facility] 2018-08-10 09:17:00 WOorojrghqf78578760R rgOYmAzCvaERL8CCJ2HbF77BttijE eGu2/4EzPwgMwJXV1Gcqlv8jXel4jBp/66890-26-36L87:17 :00 [facility] HospitalDis[facility] SummaryREPORT#:[id number] REPORT STATUS: SignedDATE:08/10/18 TIME:916 PATIENT: FRAN SANTAMARIA UNIT #: [id number]#: [id number] [address] AGE: 67 SEX: M ATTEND: Cheikh Gutierrez MDADM AUTHOR: Jaydon Lester NP * ALL edits or amendments must be made on the electronic/computer document * Jaydon Lester NP 08/10/18 0917:PCP PCPPCP:PCP: DOES_NOT KNOW Discharge to: home with [place] health [facility] [place] General InformationDate of admission:Observation Start Date: 08/08/18Date [...] of DVTMusculoskeletal: full range of motion, normal inspectionNeuro/SNOW RANGER: alert, oriented X 3, normal gait, normal speech, no motor deficits, no sensory deficitsGlasgow Coma Score: [place] Coma Score: Response Value Timothy eyes: eyes [...] (Auto) (20.5 - 51.1 %) 14.0 L [place] % (Auto) (1.7 - 9.3 %) 11.1 H Eos % (Auto) (0.0 - 6.0 %) 8.9 H Baso % (Auto) (0.0 - 2.0 %) 0.5 Neut # (Auto) (1.8 - 7.6 K/mm3) 4.27 Lymph # (Auto) (0.6 - 3.0 0.9K/mm3) [place] # (Auto) (0.2 - 1.5 K/mm3) 0.7 [...] hemorrhage. 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 Chronic microvascularchanges elsewhere. Impression By: [email or web address] [...] reviewed at 0927 at 1656 RPT #: [id number] OF REPORT DSDischarge aturkuw1237-07-03U17:17:00L.[id number] ailable for patient vhysVBFCWEIMTUKVCO7085-31-15I28:56:07 [facility] 2018-08-09 12:06:00 [id number] 7603DaKb+MSQQa9yDUKhUZ9foYaMZ pALa6N2zFQKjKwHoU/hxMB+J4EuwgTPGz8701-35-43C58:06 :00 [facility])Neurology Consultation NoteREPORT#:[id number] REPORT STATUS: SignedDATE:08/09/18 TIME:1206 PATIENT: FRAN SANTAMARIA UNIT #: [id number]#: [id number] [facility]DOB: [birth year] AGE: 67 SEX: M ATTEND: [...] a walker ResultsFindings/Data:Laboratory Tests 08/09 08/08 08/08 2590 4430 2008 Chemistry Sodium (134 - 147 mmol/L) [...] (Auto) (20.5 - 51.1 %) 4.8 L [place] % (Auto) (1.7 - 9.3 %) 8.6 Eos % (Auto) (0.0 - 6.0 %) 1.0 Baso % (Auto) (0.0 - 2.0 %) 0.3 Neut # (Auto) (1.8 - 7.6 K/mm3) 10.02 H Lymph # (Auto) (0.6 - 3.0 K/mm3) 0.6 [place] # (Auto) (0.2 - 1.5 K/mm3) 1.0 [...] for the consult. at 1758 RPT #: [id number] OF REPORT CGHvegvjulkasx8230-37-82Q24:06:00L.[id number] 069AVAvailable for patient hgkoTMDBZRIINJPWYJ5836-26-46F91:58:23 [facility] 2018-08-09 09:35:00 ORkkkotoejv7316100PL cQWRENXqpqJ34DlAKBTm3Q2EHT5On ZOAFQzREUU/fkBgSz+O/f33dKngwB2AOe5480-32-65E86:35 :00 [facility] ([facility])History Physical - AdultREPORT#:[id number] REPORT STATUS: SignedDATE:08/09/18 TIME:934 PATIENT: FRAN SANTAMARIA UNIT #: [id number]#: [id number] ROOM/BED: 304-1DOB: [birth year] AGE: 67 SEX: M [...] range of motion, no peripheral edemaMusculoskeletal: decreased ROMNeuro/SNOW RANGER: alertSkin: dry, no rashLymphatic: no lymphadenopathy ResultsFindings/Data:Laboratory Tests: 08/0979 5062008 Chemistry Sodium (134 - 147 mmol/L) 135 [...] (Auto) (20.5 - 51.1 %) 4.8 L [place] % (Auto) (1.7 - 9.3 %) 8.6 Eos % (Auto) (0.0 - 6.0 %) 1.0 Baso % (Auto) (0.0 - 2.0 %) 0.3 Neut # (Auto) (1.8 - 7.6 K/mm3) 10.02 H Lymph # (Auto) (0.6 - 3.0 K/mm3) 0.6 [place] # (Auto) (0.2 - 1.5 K/mm3) 1.0 [...] directive: Full code at 1809 RPT #: [id number] OF REPORT HPHistory and physical igywwmkwqhw1708-30-56K48:35:00L.[id number] AVAvailable for patient goysARCPUYCMYTFXRK7600-15-18H11:09:03 [facility] 2018-08-08 19:56:00 LSgeoltqsjw7627637Od 7aIZjzFJ0ZeEMPPbgXPLsC6bYUHBR /IZ119x9pu3pcUcbWAQQr8U3mABfv/2eU4236-29-77C15:56 :00 [facility])EMERGENCY PROVIDER REPORTREPORT#:[id number] REPORT STATUS: SignedDATE:08/08/18 TIME:1955 PATIENT: FRAN SANTAMARIA UNIT #: [id number]#: [id number] [address] AGE: 67 SEX: M PCP [...] prior) Free Text HPI NotesFree Text HPI Vzqoz71ul WM with PMH of HTN, DM, AFib, [...] (Auto) (20.5 - 51.1 %) 4.8 L [place] % (Auto) (1.7 - 9.3 %) 8.6 Eos % (Auto) (0.0 - 6.0 %) 1.0 Baso % (Auto) (0.0 - 2.0 %) 0.3 Neut # (Auto) (1.8 - 7.6 K/mm3) 10.02 H Lymph # (Auto) (0.6 - 3.0 K/mm3) 0.6 [place] # (Auto) (0.2 - 1.5 K/mm3) 1.0 [...] 97 On: Room air Interpretation Interpreted by fl Time 1928 ECG #1 InterpretationECG Documented in MUSE YesDate 08/08/18Time 1935Interpreted by ED physicianNL ECG Interpretation Normal rate, Normal sinus rhythm, No STEMI, Normal axisRate 88Conduction/[place] RBBB - incomplete Portions of this section [...] in the presence of [Dr. Anders].Signed By: Cceile Pruett, 08/08/181955 Provider Scribed StatementI personally performed the services described in this documentation and reviewedthe documentation that was dictated to the scribe(s) in my presence, and it accurately records my words and actions. Crissy Anders, 08/08/18 Portions of this section were scribed by Cecile Pruett on 08/08/18 at 2144 at 2336 RPT #: [id number] OF REPORTWilson N. [facility] department stxcjh8651-72-46C90:56:00L.BAMX06949218-5462EZNvk ilable for patient cprhLQMOFYVHMCZJKZ5635-71-37F19:36:23 [facility] 2018-08-08 19:30:00 KXyvvxywken0328723IA 21s0QxlwyYPebvmk9bvpb8KerCiCZ mt3FBgXOJtzkgsMyynbZjwoow7RviSmf0529-73-66N78:30 :[id number] [address] PATIENT NAME: FRAN SANTAMARIA ADMIT DATE: 08/08/18ACCOUNT NO: [id number] ROOM NO: [facility] AGE: 67 REPORT TYPE: eELECTROCARDIOGRAM SEX: M ADMITTING PHYSICIAN: Cheikh Gutierrez MD ATTENDING PHYSICIAN: Cheikh Gutierrez MD Order:[id number] Reason : (Not Selected) Test Date/Time Stamp:SatAug [...] Self Referred Confirmed by:AMANDA BONNER MD at 9584 PATIENT NAME: FRAN SANTAMARIA .[id number] AVAvailable for patient jcmxBOXBVZVVNMIQME9857-85-15Y40:34:31 [facility]
[2023-07-28 11:34] LABS: Absolute Lymphocytes (CBC) 0.4 K/uL (0.7-4.9); Hematocrit 22.3 % (39.6-49.0); Lymphocytes % 3.6 % (15.3-44.8); MCV 71.3 fL (80-100); MPV 8.2 fL (7.6-11.3); Platelets 219 thou/uL (152-406); RBC Red Blood Cell Count 3.12 M/uL (4.33-5.43)
[2023-07-28 11:55] LABS: Albumin 2.5 g/dL (3.4-5.0); Bilirubin Direct 0.2 mg/dL (0-0.2); Bilirubin Indirect, Calculated 0.4 mg/dL (0.2-0.8); Bilirubin Total 0.6 mg/dL (0.2-1.0); Magnesium 1.7 mg/dL (1.6-2.4); Potassium 4.3 mEq/L (3.5-5.1); Protein, Total 6.2 g/dL (6.4-8.2); Troponin High Sensitivity 30.6 pg/mL (<58.9)
--- NOTE | 2023-07-28 12:21 | RAD REPORT ---
EXAM DESCRIPTION: RAD - Chest Single View - 07/28/2023 12:01 pm CLINICAL HISTORY: DYSPNEA COMPARISON: <Comparisons> FINDINGS: Lines: None. Lungs: Increased prominence of the pulmonary interstitium. This is eccentric to the right. Pleural: Small pleural effusions. Cardiac: Mild cardiomegaly. Mediastinum: Within normal limits. Bones: No acute fractures. Other: None IMPRESSION: Airspace disease bilaterally likely reflecting pulmonary edema, eccentric to the right. Pneumonia less likely but a chest CT is pending.
[2023-07-28 12:24] LABS: Blood Morphology Comment NOTED (NOT SEEN); Platelet Estimate ADEQ; White Blood Cell Scan OK (OK)
[2023-07-28 12:25] LABS: Burr Cells 1+
--- NOTE | 2023-07-28 12:25 | RAD REPORT ---
EXAM DESCRIPTION: CTAbdomen Pelvis W Contrast - 07/28/2023 12:11 pm CLINICAL HISTORY: ABD PAIN COMPARISON: No comparisons TECHNIQUE: CT of the abdomen and pelvis was performed. All CT scans are performed using dose optimization technique as appropriate and may include automated exposure control or mA/KV adjustment according to patient size. FINDINGS: Lower chest: Bilateral pleural effusions. Coronary artery calcifications. Atelectasis and/ or mild consolidation as a result of the effusions. Liver: No acute abnormality or suspicious lesions. Biliary: No biliary ductal dilatation. Stomach: No significant focal abnormality. Duodenum: No significant focal abnormality. Pancreas: No significant abnormality. Spleen: No significant abnormality. Adrenal: No suspicious lesions. Kidney/ureter: No hydronephrosis. No renal calculi. Too small to characterize and/or benign appearing renal lesions are noted. Retroperitoneum: No retroperitoneal adenopathy. Vascular: At least moderate atherosclerosis is present. Iliac artery stents are present. Bowel: Moderate to large formed colonic stool burden. No bowel obstruction.. Peritoneum: Small volume of pelvic free fluid. Body wall edema. Bladder: Grossly unremarkable. Reproductive: No masses. Bones: No acute fracture. Multilevel degenerative changes are present in the spine. Other: n/a IMPRESSION: No acute intra-abdominal or pelvic finding. Constipation including moderate formed stool in the rectum. No bowel obstruction. Anasarca.
--- NOTE | 2023-07-28 12:30 | RAD REPORT ---
EXAM DESCRIPTION: CT - Thorax Wo Con - 07/28/2023 12:16 pm CLINICAL HISTORY: FLUID IN BILAT LUNGS- POST CONTRAST CT COMPARISON: No comparisons FINDINGS: Chest Wall: No suspicious thyroid nodules or pathologic lymphadenopathy. Lungs: Advanced emphysema. Irregular nodular ground-glass opacities are present in the lower aspect o f the right upper lobe as well as bilateral lower lobes. Pleura: Small moderate bilateral pleural effusions. Mediastinum/danelle: No pathologic lymphadenopathy. Fluid present within the esophagus that is nonspecif ic. Pulmonary arteries/Aorta: Limited evaluation without contrast. No aortic aneurysm. Atherosclerosis. Heart: No significant pericardial effusion. Mild cardiomegaly. Multi-vessel coronary artery disease. Probable aortic valve calcifications. Upper abdomen: No acute abnormality. Bones: No acute abnormality. Multilevel degenerative changes are present in the spine. All CT scans are performed using dose optimization technique as appropriate and may include automated exposure control or mA/KV adjustment according to patient size. IMPRESSION: Mild right upper lobe and bilateral lower lobe nodularity that could reflect a mild infe ctious or inflammatory process. Background of advanced emphysema. Suggest 3 month follow-up chest CT to ensure resolution. Bilateral pleural effusions, associated atelectasis, and also mild anasarca.
[2023-07-28] MEDS ORDERED: NA CHLORIDE 0.9% 500 ML ONE (14:12)
[2023-07-28] MEDS ORDERED: Levofloxacin 750mg IV 750 MG/150 ML BAG IV ONE (14:18)
--- NOTE | 2023-07-28 14:44 | EDPHYS ---
Physician Documentation [facility] Name: Luis Antonio Santamaria Age: 72 yrs Sex: Male : 1950 Arrival Date: 07/28/2023 Time: 10:43 Bed 8 Private MD: ED Physician Sanjay Sneed HPI: 07/28 12:05 This 72 yrs old Male presents to ER via EMS with complaints of Shortness Of Breath. rt 12:05 Patient presents to the ED with shortness of breath, reported anemia as well as a dark rt red-colored stools. He denies any abdominal pain, nausea, vomiting at this time. Was seen in the ER recently for this, was subsequently discharged. Symptoms are moderate in severity, no other aggravating elevating factors.. Historical: - Allergies: 10:52 No Known Allergies; ph - Home Meds: 15:08 Remeron 15 mg Oral tablet 0.5 tabs every day at bedtime [Active]; aripiprazole 5 mg ph oral tablet daily [Active]; tamsulosin 0.4 mg oral capsule 2 caps daily [Active]; aspirin 81 mg Oral capsule 1 cap daily [Active]; citalopram 10 mg tablet 1 tab daily [Active]; doxepin 100 mg Oral capsule 1 cap daily [Active]; Lunesta 3 mg oral tablet 1 tab every day at bedtime [Active]; metformin 1,000 mg Oral tablet 1 tab 2 times per day with meals [Active]; Vitamin D3 25 mcg (1,000 unit) oral tablet 1 tab 2 times per day [Active]; zinc sulfate 50 mg zinc (220 mg) Oral capsule 1 cap 2 times per day [Active]; Fish Oil 1,000 mg (120 mg-180 mg) oral capsule 1 cap daily [Active]; oxybutynin chloride 5 mg Oral tablet 1 tab 2 times per day [Active]; apixaban 5 mg oral tablet 1 tab 2 times per day [Active]; atorvastatin 40 mg oral tablet 1 tab daily [Active]; finasteride 5 mg oral tablet 1 tab daily [Active]; Antacid (calcium carbonate-magnesium hydroxide) oral 1 tabs twice a day [Active]; senna oral 2 caps at bedtime PRN for constipation [Active]; - PMHx: 10:52 BRAIN TUMOR; CVA x4; Hyperlipidemia; Hypertension; Myocardial infarction; PVD; ph 15:08 Hyponatremia; ph - Immunization history:: Adult Immunizations unknown. - Social history:: Smoking status: unknown. - Family history:: not pertinent. ROS: 12:05 Constitutional: Negative for fever, chills, and weight loss, Cardiovascular: Negative rt for chest pain, palpitations, and edema, MS/Extremity: Negative for injury and deformity, Skin: Negative for injury, rash, and discoloration, Psych: Negative for depression, anxiety, suicide ideation, homicidal ideation, and hallucinations, 12:05 Respiratory: Positive for shortness of breath, Negative for cough, 12:05 Abdomen/GI: Negative for nausea, vomiting, 12:05 Neuro: Positive for near syncope, weakness, Exam: 12:06 Constitutional: This is a well developed, well nourished patient who is awake, alert, rt and in no acute distress. Head/Face: Normocephalic, atraumatic. Chest/axilla: Normal chest wall appearance and motion. Nontender with no deformity. No lesions are appreciated. Cardiovascular: Regular rate and rhythm with a normal S1 and S2. No gallops, murmurs, or rubs. Normal PMI, no JVD. No pulse deficits. Respiratory: Lungs have equal breath sounds bilaterally, clear to auscultation and percussion. No rales, rhonchi or wheezes noted. No increased work of breathing, no retractions or nasal flaring. Abdomen/GI: Soft, non-tender, with normal bowel sounds. No distension or tympany. No guarding or rebound. No evidence of tenderness throughout. Skin: Warm, dry with normal turgor. Normal color with no rashes, no lesions, and no evidence of cellulitis. MS/ Extremity: Pulses equal, no cyanosis. Neurovascular intact. Full, normal range of motion. Neuro: Awake and alert, GCS 15, oriented to person, place, time, and situation. Cranial nerves II-XII grossly intact. Motor strength 5/5 in all extremities. Sensory grossly intact. Cerebellar exam normal. Normal gait. Psych: Awake, alert, with orientation to person, place and time. Behavior, mood, and affect are within normal limits. 12:06 Eyes: Pale conjunctiva, extraocular muscles intact. 12:06 ECG was reviewed by the Attending Physician. Vital Signs: 10:49 BP 122 / 67; Pulse 69; Resp 18; Temp 97.6; Pulse Ox 97% on R/A; Weight 68.04 kg; Height ph 6 ft. 0 in. ; 13:30 BP 141 / 78; Pulse 76; Resp 16; Pulse Ox 98% on 2 lpm NC; ph 14:32 BP 137 / 72; Pulse 72; Resp 18; Pulse Ox 98% on 2 lpm NC; ph 15:08 BP 145 / 91; Pulse 66; Resp 18; Pulse Ox 100% on 2 lpm NC; ph 16:38 BP 132 / 76; Pulse 75; Resp 16; Pulse Ox 100% ; bp 10:49 Body Mass Index 20.34 (68.04 kg, 182.88 cm) ph MDM: 10:55 Patient medically screened. rt 16:48 Differential diagnosis: Rectal bleed, diverticulitis, electrolyte disturbance. Data rt reviewed: vital signs, nurses notes, lab test result(s), EKG, radiologic studies. Consideration of Admission/Observation Patient was admitted/placed on observation. Management of patient was discussed with the following: Hospitalist: Agrees to admit. Bail Bondsman: Discussed with hot bread baker on-call. I considered the following discharge prescriptions or medication management in the emergency department Medications were administered in the Emergency Department. See MAR. Independent interpretation of the following test(s) in the Emergency Department CT Scan: My interpretation is No bowel obstruction some interpretation of CT scan images. Care significantly affected by the following chronic conditions: Hypertension. Counseling: I had a detailed discussion with the patient and/or guardian regarding the historical points, exam findings, and any diagnostic results supporting the discharge/admit diagnosis, lab results, radiology results, the need for further work-up and treatment in the hospital. Response to treatment: the patient's symptoms have mildly improved after treatment. 07/28 11:02 Order name: Basic Metabolic Panel; Complete Time: 12:13 rt 07/28 11:02 Order name: CBC with Diff; Complete Time: 12:27 rt 07/28 11:02 Order name: LFT's; Complete Time: 12:13 rt 07/28 11:02 Order name: Magnesium; Complete Time: 12:13 rt 07/28 11:02 Order name: NT PRO-BNP; Complete Time: 12:13 rt 07/28 11:02 Order name: Troponin HS; Complete Time: 12:13 rt 07/28 11:02 Order name: Type And Screen; Complete Time: 12:13 rt 07/28 12:25 Order name: CBC Smear Scan; Complete Time: 12:27 EDMS 07/28 16:06 Order name: Basic Metabolic Panel EDMS 07/28 16:06 Order name: Basic Metabolic Panel EDMS 07/28 16:06 Order name: CBC with Automated Diff EDMS 07/28 16:06 Order name: CBC with Automated Diff EDMS 07/28 16:06 Order name: Hematocrit EDMS 07/28 16:06 Order name: Hematocrit EDMS 07/28 16:06 Order name: Hematocrit EDMS 07/28 16:06 Order name: Hemoglobin EDMS 07/28 16:06 Order name: Hemoglobin EDMS 07/28 16:06 Order name: Hemoglobin EDMS 07/28 16:06 Order name: Protime (+INR) EDMS 07/28 16:06 Order name: Protime (+INR) EDMS 07/28 16:06 Order name: PTT, Activated Partial Thromb EDMS 07/28 16:06 Order name: PTT, Activated Partial Thromb EDMS 07/28 11:02 Order name: XRAY Chest (1 view); Complete Time: 12:27 rt 07/28 11:02 Order name: CT Abd/Pelvis - IV Contrast Only; Complete Time: 12:27 rt 07/28 12:14 Order name: Thorax Wo Con; Complete Time: 12:31 EDMS 07/28 11:02 Order name: EKG; Complete Time: 11:02 rt 07/28 16:06 Order name: CONS Physician Consult EDMS 07/28 16:06 Order name: EKG Electrocardiogram EDMS 07/28 16:06 Order name: EKG Electrocardiogram EDMS 07/28 16:06 Order name: EKG Electrocardiogram EDMS 07/28 16:06 Order name: EKG Electrocardiogram EDMS 07/28 16:06 Order name: EKG Electrocardiogram EDMS 07/28 16:06 Order name: EKG Electrocardiogram EDMS 07/28 16:06 Order name: EKG Electrocardiogram EDMS 07/28 16:06 Order name: EKG Electrocardiogram EDMS 07/28 16:06 Order name: EKG Electrocardiogram EDMS 07/28 16:06 Order name: EKG Electrocardiogram EDMS 07/28 16:06 Order name: EKG Electrocardiogram EDMS 07/28 11:02 Order name: Cardiac monitoring; Complete Time: : rt 07/28 11:02 Order name: EKG - Nurse/Tech; Complete Time: 11: rt 07/28 11:02 Order name: IV Saline Lock; Complete Time: rt 07/28 11:02 Order name: Labs collected and sent; Complete Time: rt 07/28 11:02 Order name: O2 Per Protocol; Complete Time: rt 07/28 11:02 Order name: O2 Sat Monitoring; Complete Time: rt EC:06 Rate is 66 beats/min. Rhythm is regular, 1st Degree Block with Right bundle branch rt block. QRS Umpire is Normal. MN interval is prolonged at 384 msec. QRS interval is normal. QT interval is normal. No Q waves. Clinical impression: NSR w/ Non-specific ST/T Changes. Administered Medications: 14: Drug: LevaQUIN IVPB 750 mg IVPB once Route: IVPB; Site: left antecubital; ph 16:39 Follow up: IV Status: Completed infusion; IV Intake: 150ml bp 14: Drug: NS 0.9% IV 500 ml IV at bolus once Route: IV; Rate: bolus; Site: left antecubital;ph 16:39 Follow up: IV Status: Completed infusion; IV Intake: 500ml bp Disposition: 16:48 Critical Care:. rt Disposition Summary: 07/28/23 14:44 Hospitalization Ordered Notes: Hospitalization Status: Inpatient Admission rt Provider: Skyler Montoya rt Location: Telemetry/[facility] (Inpatient) rt Condition: Stable rt Problem: new rt Symptoms: are unchanged rt Bed/Room Type: Standard rt Room Assignment: 217(07/28/23 16:59) bp Diagnosis - Rectal bleeding rt - Hyponatremia rt - Pneumonia rt Forms: - Medication Reconciliation Form rt - SBAR form rt - Leadership Thank You Letter rt Critical care time excluding procedures: 16:48 Critical care time: Bedside Care: 30 minutes, Consultation: 10 minutes. Total time: 40 rt minutes Signatures: Dispatcher IanHoAlysia Askew RN RN Neri Briseno RN RN Calista Henriquez Ryan, MD MD rt Corrections: (The following items were deleted from the chart) 16:11 14:44 rt eb 16:59 16:11 211 eb bp
--- NOTE | 2023-07-28 14:44 | ER ---
Nurse's Notes Formerly [facility] Name: Luis Antonio Santamaria Age: 72 yrs Sex: Male : 1950 Arrival Date: 07/28/2023 Time: 10:43 Bed 8 Private MD: Diagnosis: Rectal bleeding;Hyponatremia;Pneumonia Presentation: 07/28 10:49 Chief complaint: EMS states: From [facility], EMS called for low BP and Spo2, BP fro ph EMS 118 systolic and Spo2 97% RA, pt does report SOB and dark colored stools, seen in ED recently for similar complaint and d/c. Coronavirus screen: Vaccine status: Patient reports receiving the 2nd dose of the covid vaccine. Ebola Screen: No symptoms or risks identified at this time. Initial Sepsis Screen: Does the patient meet any 2 criteria? No. Patient's initial sepsis screen is negative. Does the patient have a suspected source of infection? No. Patient's initial sepsis screen is negative. Risk Assessment: Do you want to hurt yourself or someone else? Patient reports no desire to harm self or others. Onset of symptoms was July 28, 2023. 10:49 Method Of Arrival: EMS: [facility] 10:49 Acuity: DYLON 3 ph Triage Assessment: 10:53 General: Appears in no apparent distress. comfortable, well groomed, Behavior is calm, ph cooperative, appropriate for age. Pain: Denies pain. Neuro: Level of Consciousness is awake, alert, obeys commands, Oriented to person, place, time, situation. Cardiovascular: Reports shortness of breath, Capillary refill < 3 seconds in bilateral fingers Thorax. Respiratory: Reports shortness of breath at rest Airway is patent Respiratory effort is even, unlabored, Onset: The symptoms/episode began/occurred gradually, the patient has mild shortness of breath. GI: Reports bloody stool, Patient currently denies nausea, vomiting. : No signs and/or symptoms were reported regarding the genitourinary system. Derm: Skin is dry, Skin is pale. Musculoskeletal: Circulation, motion, and sensation intact. Range of motion: intact in all extremities. Historical: - Allergies: 10:52 No Known Allergies; ph - Home Meds: 15:08 Remeron 15 mg Oral tablet 0.5 tabs every day at bedtime [Active]; aripiprazole 5 mg ph oral tablet daily [Active]; tamsulosin 0.4 mg oral capsule 2 caps daily [Active]; aspirin 81 mg Oral capsule 1 cap daily [Active]; citalopram 10 mg tablet 1 tab daily [Active]; doxepin 100 mg Oral capsule 1 cap daily [Active]; Lunesta 3 mg oral tablet 1 tab every day at bedtime [Active]; metformin 1,000 mg Oral tablet 1 tab 2 times per day with meals [Active]; Vitamin D3 25 mcg (1,000 unit) oral tablet 1 tab 2 times per day [Active]; zinc sulfate 50 mg zinc (220 mg) Oral capsule 1 cap 2 times per day [Active]; Fish Oil 1,000 mg (120 mg-180 mg) oral capsule 1 cap daily [Active]; oxybutynin chloride 5 mg Oral tablet 1 tab 2 times per day [Active]; apixaban 5 mg oral tablet 1 tab 2 times per day [Active]; atorvastatin 40 mg oral tablet 1 tab daily [Active]; finasteride 5 mg oral tablet 1 tab daily [Active]; Antacid (calcium carbonate-magnesium hydroxide) oral 1 tabs twice a day [Active]; senna oral 2 caps at bedtime PRN for constipation [Active]; - PMHx: 10:52 BRAIN TUMOR; CVA x4; Hyperlipidemia; Hypertension; Myocardial infarction; PVD; ph 15:08 Hyponatremia; ph - Immunization history:: Adult Immunizations unknown. - Social history:: Smoking status: unknown. - Family history:: not pertinent. Screenin:[facility] ED Fall Risk Assessment (Adult) History of falling in the last 3 months, ph including since admission No falls in past 3 months (0 pts) Confusion or Disorientation No (0 pts) Intoxicated or Sedated No (0 pts) Impaired Gait Yes (1 pt) Mobility Assist Device Used Yes (1 pt) Altered Elimination Yes (1 pt) Score/Fall Risk Level 3 or more points = High Risk Oriented to surroundings, Maintained a safe environment, Provided non-skid footwear, Hourly rounding (assess needs \T\ fall precautionary measures) done. Abuse screen: Denies threats or abuse. Denies injuries from another. Nutritional screening: No deficits noted. Tuberculosis screening: No symptoms or risk factors identified. Assessment: 11:23 General: SEE TRIAGE ASSESSMENT. ph 12:04 Reassessment: Patient appears in no apparent distress at this time. Patient and/or ph family updated on plan of care and expected duration. Pain level reassessed. Pt taken to CT. 13:30 Reassessment: Patient appears in no apparent distress at this time. Patient and/or ph family updated on plan of care and expected duration. Pain level reassessed. Patient is alert, oriented x 3, equal unlabored respirations, skin warm/dry/pink. 15:07 Reassessment: Patient appears in no apparent distress at this time. Patient and/or ph family updated on plan of care and expected duration. Pain level reassessed. Patient is alert, oriented x 3, equal unlabored respirations, skin warm/dry/pink. 16:38 Reassessment: Patient appears in no apparent distress at this time. Patient is alert, bp oriented x 3, equal unlabored respirations, skin warm/dry/pink. Cardiovascular: Rhythm is sinus rhythm. Respiratory: Airway is patent Breath sounds are clear bilaterally. Vital Signs: 10:49 BP 122 / 67; Pulse 69; Resp 18; Temp 97.6; Pulse Ox 97% on R/A; Weight 68.04 kg; Height ph 6 ft. 0 in. ; 13:30 BP 141 / 78; Pulse 76; Resp 16; Pulse Ox 98% on 2 lpm NC; ph 14:32 BP 137 / 72; Pulse 72; Resp 18; Pulse Ox 98% on 2 lpm NC; ph 15:08 BP 145 / 91; Pulse 66; Resp 18; Pulse Ox 100% on 2 lpm NC; ph 16:38 BP 132 / 76; Pulse 75; Resp 16; Pulse Ox 100% ; bp 10:49 Body Mass Index 20.34 (68.04 kg, 182.88 cm) ph ED Course: 10:47 Patient arrived in ED. ph 10:49 Sanjay Sneed MD is Attending Physician. rt 10:52 Triage completed. ph 10:53 Arm band placed on Patient placed in an exam room, on a stretcher. ph 10:54 Patient has correct armband on for positive identification. Bed in low position. Call ph light in reach. Side rails up X2. Client placed on continuous cardiac and pulse oximetry monitoring. NIBP monitoring applied. Warm blanket given. 11:07 Neri Posada, ROBERTO is Primary Nurse. bp 11:22 Troponin HS Sent. ph 11:22 NT PRO-BNP Sent. ph 11:22 Magnesium Sent. ph 11:22 LFT's Sent. ph 11:22 CBC with Diff Sent. ph 11:22 Basic Metabolic Panel Sent. ph 11:22 Type And Screen Sent. ph 12:03 XRAY Chest (1 view) In Process Unspecified. EDMS 12:13 CT Abd/Pelvis - IV Contrast Only In Process Unspecified. EDMS 12:18 Thorax Wo Con In Process Unspecified. EDMS 14:43 Skyler Montoya MD is Hospitalizing Provider. rt 16:57 No provider procedures requiring assistance completed. Patient admitted, IV remains in bp place. Administered Medications: 14:28 Drug: LevaQUIN IVPB 750 mg IVPB once Route: IVPB; Site: left antecubital; ph 16:39 Follow up: IV Status: Completed infusion; IV Intake: 150ml bp 14:28 Drug: NS 0.9% IV 500 ml IV at bolus once Route: IV; Rate: bolus; Site: left antecubital;ph 16:39 Follow up: IV Status: Completed infusion; IV Intake: 500ml bp Medication: 10:54 VIS not applicable for this client. ph Intake: 16:39 IV: 500ml; Total: 500ml. bp 16:39 IV: 150ml; Total: 650ml. bp Outcome: 14:44 Decision to Hospitalize by Provider. rt 16:56 Admitted to Med/surg accompanied by tech, via stretcher, room 217, with chart, Report bp called to TRAMAINE MEJIA 16:56 Condition: stable 16:56 Instructed on the need for admit, 17:03 Patient left the ED. ph Signatures: Dispatcher [employer] Alysia Lazo, RN RN ph Neri Posada RN RN bp Sanjay Sneed MD MD rt
[2023-07-28] MEDS ORDERED: NA CHLORIDE 0.9% 250 ML IV SCH (16:00)
[2023-07-28] MEDS ORDERED: ONDANSETRON 4 MG/2 ML VIAL IV PRN (16:00)
[2023-07-28] MEDS ORDERED: ACETAMINOPHEN 500 MG TAB PO PRN (16:00)
[2023-07-28] MEDS ORDERED: MORPHINE 2 MG/ML SYR IV PRN (16:00)
[2023-07-28] MEDS: NA CHLORIDE 0.9% 1,000 ML IV SCH (17:22)
[2023-07-28 17:30] VITALS: BMI 19.9
[2023-07-28 21:44] LABS: Hematocrit 24.8 % (39.6-49.0)
[2023-07-29] MEDS: NA CHLORIDE 0.9% 1,000 ML IV SCH ×3 (05:20→22:57)
[2023-07-29 05:51] LABS: Absolute Lymphocytes (CBC) 0.7 K/uL (0.7-4.9); Hematocrit 22.4 % (39.6-49.0); Lymphocytes % 8.3 % (15.3-44.8); MCV 70.8 fL (80-100); MPV 8.1 fL (7.6-11.3); Platelets 250 thou/uL (152-406); RBC Red Blood Cell Count 3.16 M/uL (4.33-5.43)
[2023-07-29 06:03] LABS: Protime INR 1.81
[2023-07-29 06:13] LABS: Potassium 4.4 mEq/L (3.5-5.1)
[2023-07-29] MEDS ORDERED: CALCIUM CARBONATE CHEW 500MG TAB PO PRN (10:38)
[2023-07-29] MEDS ORDERED: DOCUSATE NA/SENNA CONC 1 TAB PO PRN (10:38)
--- NOTE | 2023-07-29 10:58 | P.HP ---
Certification for Inpatient Patient admitted to: Inpatient With expected LOS: >2 Midnights Patient will require the following post-hospital care: None Practitioner: I am a practitioner with admitting privileges, knowledge of patient current condition, hospital course, and medical plan of care. Services: Services provided to patient in accordance with Admission requirements found in Title 42 Section 412.3 of the Code of Federal Regulations Patient History Date of Service: 07/28/23 Reason for admission: Patient presents with questionable rectal bleeding /hyponatremia/SOB History of Present Illness: Patient is a 72-year-old gentleman With a history of brain tumor and CVA as well as hypertension and CAD presents to the hospital with shortness of breath. Patient also was having some rectal bleeding. Patient's hemoglobin was 7.3 on arrival. When I spoke to the patient he did not mention any bleeding time knee. Patient does state he gets short of breath on ambulation. He was also found to be severely hyponatremic. Patient is on numerous medications that can result in hyponatremia including Remeron, Abilify,doxepin, etc. with the med and check a urine sodium level to further assess this. Monitor patient's H&H overnight as well. Patient with nose active bleeding at this time. Spoke to GI and they will see the patient later today. Patient will be admitted to the hospital for further evaluation. Allergies No Known Allergies Allergy (Unverified 07/21/16 12:35) Home Medications: Apixaban [Eliquis] 5 mg PO BID 07/28/23 Aripiprazole [Abilify] 5 mg PO DAILY 07/28/23 Aspirin Chewable [Aspirin Chewable*] 81 mg PO DAILY 07/28/23 Atorvastatin Calcium 40 mg PO BEDTIME 07/28/23 Calamine/Zinc Oxide [Calamine Lotion] 177 ml TP BID 07/28/23 Calcium Carbonate [Antacid] 200 mg PO BID PRN 07/28/23 Cholecalciferol (Vitamin D3) [Vitamin D3] 25 mcg PO DAILY 07/28/23 Citalopram [Celexa] 20 mg PO BEDTIME 07/28/23 Doxepin HCl [Sinequan] 100 mg PO BEDTIME 07/28/23 Eszopiclone [Lunesta] 3 mg PO BEDTIME 07/28/23 Finasteride 5 mg PO DAILY 07/28/23 Lanolin Alcohol/Mo/W.pet/Dewitt [Eucerin Cream] 454 gm TP BID 07/28/23 Metformin HCl 1,000 mg PO BIDAC 07/28/23 Mirtazapine 7.5 mg PO BEDTIME 07/28/23 [place]-3/Dha/Epa/Fish Oil [Fish Oil 1,000 mg Softgel] 1 each PO DAILY 07/28/23 Oxybutynin Chloride [Oxybutynin Chloride ER] 5 mg PO BID 07/28/23 Sennosides/Docusate Sodium [Senna Plus Tablet] 2 each PO BEDTIME PRN 07/28/23 Tamsulosin HCl [Flomax] 2 tab PO BEDTIME 07/28/23 Zinc Gluconate [Zinc] 50 mg PO BID 07/28/23 - Past Medical/Surgical History Has patient received pneumonia vaccine in the past: Yes Diabetic: Yes -: Brain tumor -: CVA -: Hyperlipidemia -: Hypertension -: Myocardial infarction Past Surgical History: Unable to obtain - Family History Father Family History: Reviewed- Non-Contributory - Social History Smoking Status: Never smoker Alcohol use: No CD- Drugs: No Place of Residence: Retirement Review of Systems 10-point ROS is otherwise unremarkable Physical Examination - Vital Signs Temperature: 97.9 F Blood Pressure: 126/55 Pulse: 97 Respirations: 16 Pulse Ox (%): 99 - Physical Exam General: Alert, In no apparent distress, Oriented x2, Confused HEENT: Atraumatic, PERRLA, Mucous membr. moist/pink, EOMI, Sclerae nonicteric Neck: Supple, 2+ carotid pulse no bruit, No LAD, Without JVD or thyroid abnormality Respiratory: Clear to auscultation bilaterally, Normal air movement Cardiovascular: Regular rate/rhythm, Normal S1 S2, No murmurs Gastrointestinal: Normal bowel sounds, Soft and benign, Non-distended, No tenderness Musculoskeletal: No clubbing, No swelling, No tenderness Integumentary: No rashes Neurological: Normal speech, Normal tone, Sensation intact, Normal affect, Abnormal gait, Abnormal strength Lymphatics: No axilla or inguinal lymphadenopathy - Studies Laboratory Data (last 24 hrs) 07/28/23 07/28/23 11:15 11:15 WBC 10.70 Hgb 7.3 L Hct 22.3 L Plt Count 219 Sodium 120 L Potassium 4.3 BUN 26 H Creatinine 0.87 Glucose 122 H Magnesium 1.7 Total Bilirubin 0.6 AST 30 ALT 29 Alkaline Phosphatase 88 Assessment & Plan - Problems (Diagnosis) (1) Hyponatremia Current Visit: Yes Status: Acute (2) Rectal bleeding Current Visit: Yes Status: Acute (3) TIAN (acute kidney injury) Current Visit: Yes Status: Acute (4) CVA (cerebral vascular accident) Current Visit: Yes Status: Acute (5) CAD (coronary artery disease) Current Visit: Yes Status: Acute (6) HTN (hypertension) Current Visit: Yes Status: Acute (7) Dyslipidemia Current Visit: Yes Status: Acute (8) Brain tumor Current Visit: Yes Status: Acute - Plan Plan: 1. continue with gentle hydration 2. Monitor sodium level 3. H&H every 4 hours times to 4. Gi consultation 5. Nephrology consultation 6. continue with cardiac meds 7. Continue with anticoagulation 8. Adjust home medications and check for risk of SIADH 9. Gi DVT prophylaxis Discharge Plan: Home Plan to discharge in: Greater than 2 days - Advance Directives Does patient have a Living Will: No Does patient have a Durable POA for Healthcare: No - Code Status/Comfort Care Code Status Assessed: Yes Code Status: Full Code Critical Care: No Time Spent Managing PTS Care (In Minutes): 45
[2023-07-29 12:28] LABS: Hematocrit 24.2 % (39.6-49.0)
--- NOTE | 2023-07-29 15:01 | P.PN ---
Subjective Date of Service: 07/29/23 Chief Complaint: Patient presents with questionable rectal bleeding /hyponatremia/SOB Pt is resting comfortably in bed. He is eager to go home but Na is 123. He had blood in his stool at home. No other complaints. Review of Systems Unremarkable General: Unremarkable Eyes: Unremarkable ENT: Unremarkable Respiratory: Unremarkable Cardiovascular: Unremarkable Gastrointestinal: Unremarkable Genitourinary: Unremarkable Musculoskeletal: Unremarkable Integumentary: Unremarkable Neurological: Unremarkable Lymphatics: Unremarkable Physical Examination - Vital Signs Temperature: 97.9 F Blood Pressure: 126/55 Pulse: 97 Respirations: 16 Pulse Ox (%): 99 - Physical Exam General: Alert, In no apparent distress, Oriented x3 HEENT: Atraumatic, Normocephalic Neck: Supple, 2+ carotid pulse no bruit Respiratory: Clear to auscultation bilaterally, Normal air movement Cardiovascular: No edema, Normal pulses, Regular rate/rhythm, Normal S1 S2 Capillary refill: <2 Seconds Gastrointestinal: Normal bowel sounds, Soft and benign, Non-distended Musculoskeletal: No clubbing, No swelling Integumentary: No rashes, No breakdown Neurological: Normal speech, Normal strength at 5/5 x4 extr, Normal tone Lymphatics: No axilla or inguinal lymphadenopathy Assessment And Plan - Plan Hyponatremia: Na is 123 <- 120. likely chronic. Will give IVF and follow up urine sodium and urine osm. Trend Na q4h GI bleed: Pt has blood in her stool. Hgb is 7.9 <- 7.4. Will trend H/H and transfuse when Hgb is < 7. Consulted GI. TIAN: Cr is 0.68. Will avoid nephrotoxins and monitor renal function. CVA: continue home meds CAD: continue home med HLD: statin Hx of brain tumor: noted. Pulm nodule: CT chest shows RUL and bilateral lower lobe nodularities. Will follow up on outpt with CT chest. DVT ppx: lovenox Code: full
[2023-07-29] MEDS ORDERED: METFORMIN HCL 500 MG TAB PO SCH (16:30)
[2023-07-29 17:40] LABS: Hematocrit 24.9 % (39.6-49.0)
[2023-07-29] MEDS: CALAMINE TOP SCH (21:00)
[2023-07-29] MEDS: APIXABAN 5 MG TABLET PO SCH (21:00)
[2023-07-29] MEDS: [UNRECOGNIZED DRUG - OTHER] TOP SCH (21:00)
[2023-07-29] MEDS: ZINC OXIDE TOP SCH (21:00)
[2023-07-29] MEDS: TAMSULOSIN 0.4 MG SR CAP PO SCH (21:32)
[2023-07-29] MEDS: ESZOPICLONE 1 MG TAB PO SCH (21:33)
[2023-07-29] MEDS: ATORVASTATIN 40 MG TAB PO SCH (21:33)
[2023-07-29] MEDS: ZINC SULFATE 220 MG CAP PO SCH (21:34)
[2023-07-29] MEDS: CITALOPRAM 10 MG TABLET PO SCH (21:34)
[2023-07-29] MEDS: OXYBUTYNIN ER 5 MG TAB PO SCH (21:34)
[2023-07-29 22:18] LABS: Renal Epithelial <5 /HPF (None Seen); Specific Gravity 1.024 (1.005-1.030); Urine Bacteria <20 /HPF (<20); Urine Bilirubin NEGATIVE (Negative); Urine Blood Negative (Negative); Urine Clarity Clear (Clear); Urine Color Yellow (Yellow); Urine Glucose NEGATIVE (Negative); Urine Mucus Slight /HPF (None Seen); Urine Protein TRACE (Negative); Urine RBC <5 /HPF (None Seen); Urine Urobilinogen Normal (Normal); Urine pH 5.5 (5.0-7.0)
[2023-07-29 22:33] LABS: Potassium 4.9 mEq/L (3.5-5.1)
--- NOTE | 2023-07-30 01:36 | CON ---
Date of Consultation: 07/29/2023 Chief Complaint: The patient came to the hospital because of questionable rectal bleeding. He was found to have hyponatremia. He was complaining of shortness of breath. History Of Present Illness: The patient is a 72-year-old man with history of brain tumor and CVA as well as hypertension and coronary artery disease. He presented to the hospital with shortness of breath. The patient also was having some rectal bleeding. The patient was also short of breath on ambulation. He had dyspnea on exertion. He was found to have severe hyponatremia. Nephrology consultation was requested for hyponatremia. The patient is taking multiple medications, which can cause hyponatremia including Remeron, Abilify, doxepin. The workup was initiated for hyponatremia and the patient had a urine checked for sodium level. Review of Systems: Constitutional: The patient is not a good historian. He denies fever, chills. Eyes: Denies new vision changes. Ears, Nose, Mouth, and Throat: Denies sore throat, earache. Respiratory: Denies wheezing. He had dyspnea on exertion previously. GI: Denies nausea, vomiting. : Denies dysuria, hematuria. All other systems reviewed and all negative. Past Medical History: Diabetes mellitus, brain tumor, CVA, hypertension, coronary artery disease, chronic pain, hypercholesterolemia, BPH, myocardial infarction, coronary artery disease, chronic constipation. Social History: Denies tobacco, alcohol. Denies drugs. Family History: No history of kidney problem or electrolyte abnormalities. Physical Examination: General: The patient is not in acute distress. He is oriented x2. Remains confused. He is conversant. HEENT: Atraumatic, normocephalic. EOMI. Neck: Supple. No JVD. No thyroid abnormalities. Respiratory: Clear to auscultation bilaterally. Normal air movement. Cardiovascular: S1, S2. No pericardial friction rub. GI: Abdomen is soft. No rebound. No guarding. Bowel sounds present. Musculoskeletal: No swelling, tenderness. Neurological: Normal speech. No tremor. Laboratory Work: WBC 10.7, hemoglobin 7.3, hematocrit 22.3, platelet count 219. Sodium 120, potassium 4.3, BUN 26, creatinine 0.87, glucose 122. Magnesium 1.7. AP 88, ALT 29, AST 30. Bilirubin total 0.6. Impression And Plan: 1. Hyponatremia. The patient was found to have hyponatremia. Sodium level on arrival was 120 and is gradually improving. The patient was started on normal saline. Plan is to check uric acid and urine osmolality and serum osmolality, TSH and cortisol level. Continue hydration. Avoid diuretics. 2. Diabetes mellitus. Plan is to check for possible proteinuria, prerenal azotemia, acute kidney injury. The patient was volume depleted and he is on normal saline infusion. 3. Brain tumour, per Primary team. 4. Hypertension. Continue blood pressure medication. Avoid HCTZ. Avoid diuretic. EB/MODL Voice ID: [id number] Report ID: [id number] [id number]
[2023-07-30 08:35] LABS: Absolute Lymphocytes (CBC) 0.7 K/uL (0.7-4.9); Hematocrit 23.5 % (39.6-49.0); Lymphocytes % 5.8 % (15.3-44.8); MCV 71.4 fL (80-100); MPV 8.1 fL (7.6-11.3); Platelets 304 thou/uL (152-406); RBC Red Blood Cell Count 3.29 M/uL (4.33-5.43)
[2023-07-30] MEDS: ARIPiprazole 5 MG TAB PO SCH (09:00)
[2023-07-30] MEDS: [UNRECOGNIZED DRUG - OTHER] TOP SCH ×2 (09:00→20:33)
[2023-07-30] MEDS: OXYBUTYNIN ER 5 MG TAB PO SCH ×2 (09:00→20:31)
[2023-07-30] MEDS: FINASTERIDE 5 MG TAB PO SCH (09:00)
[2023-07-30] MEDS: APIXABAN 5 MG TABLET PO SCH (09:00)
[2023-07-30] MEDS: ZINC SULFATE 220 MG CAP PO SCH ×2 (09:00→20:31)
[2023-07-30] MEDS: DOCOSAHEXANOIC AC/EPA 1000 MG PO SCH (09:00)
[2023-07-30] MEDS: ASPIRIN 81 MG CHEWABLE TABLET PO SCH (09:00)
[2023-07-30] MEDS: SODIUM BICARB 325 MG TAB PO SCH ×2 (09:00→20:31)
[2023-07-30] MEDS: CALAMINE TOP SCH (09:00)
[2023-07-30] MEDS ORDERED: HOME MED 1 EA UNK (Cholecalciferol (Vitamin D3) [Vitamin D3] 25 MCG Capsule) PO SCH (09:00)
[2023-07-30] MEDS: ZINC OXIDE TOP SCH (09:00)
[2023-07-30] MEDS: VITAMIN D 1000 UNIT TAB PO SCH (09:00)
[2023-07-30 09:08] LABS: Magnesium 1.7 mg/dL (1.6-2.4); Phosphorus 3.4 mg/dL (2.5-4.9); Potassium 4.5 mEq/L (3.5-5.1); Thyroid Stimulating Hormone 2.88 uIU/mL (0.358-3.740); Uric Acid 4.5 mg/dL (3.5-7.2)
[2023-07-30 10:33] LABS: Anisocytosis 1+; Blood Morphology Comment NOTED (NOT SEEN); Hypochromasia 2+; Platelet Estimate ADEQ; White Blood Cell Scan OK (OK)
[2023-07-30 10:34] LABS: Burr Cells 1+
--- NOTE | 2023-07-30 12:11 | P.PN ---
Subjective Date of Service: 07/30/23 Chief Complaint: Patient presents with questionable rectal bleeding /hyponatremia/SOB Pt is resting comfortably in bed. He is eager to go home but Na is 124 and Hgb dropped from 8 to 7.5. He had blood in his stool at home. Waiting for GI eval today. No other complaints. Review of Systems Unremarkable General: Unremarkable Eyes: Unremarkable ENT: Unremarkable Respiratory: Unremarkable Cardiovascular: Unremarkable Gastrointestinal: Unremarkable Genitourinary: Unremarkable Musculoskeletal: Unremarkable Integumentary: Unremarkable Neurological: Unremarkable Lymphatics: Unremarkable Physical Examination - Vital Signs Temperature: 98.4 F Blood Pressure: 149/83 Pulse: 80 Respirations: 18 Pulse Ox (%): 97 - Physical Exam General: Alert, In no apparent distress, Oriented x3 HEENT: Atraumatic, Normocephalic, PERRLA Neck: Supple, 2+ carotid pulse no bruit Respiratory: Clear to auscultation bilaterally, Normal air movement Cardiovascular: No edema, Normal pulses, Regular rate/rhythm, Normal S1 S2 Capillary refill: <2 Seconds Gastrointestinal: Normal bowel sounds, Soft and benign, Non-distended Musculoskeletal: No clubbing, No swelling Integumentary: No rashes, No breakdown Neurological: Normal gait, Normal speech, Normal strength at 5/5 x4 extr, Normal tone, Sensation intact, Cranial nerves 3-12 intact Lymphatics: No axilla or inguinal lymphadenopathy Assessment And Plan - Plan Hyponatremia: Na is 124 <- 123 <- 120. likely chronic. Will give IVF and follow up urine sodium and urine osm. Trend Na q4h GI bleed: Pt has blood in her stool. Hgb is 7.5 <- 7.9 <- 7.4. Will trend H/H and transfuse when Hgb is < 7. Waiting for GI recommendation. Pt is NPO for possible endoscopy. TIAN: Cr is 0.91 <- 0.68. Will avoid nephrotoxins and monitor renal function. CVA: continue home meds CAD: continue home med HLD: statin Hx of brain tumor: noted. Pulm nodule: CT chest shows RUL and bilateral lower lobe nodularities. Will follow up on outpt with CT chest. DVT ppx: lovenox Code: full
[2023-07-30] MEDS ORDERED: NA CHLORIDE 0.9% 1,000 ML ONE (13:26)
[2023-07-30] MEDS ORDERED: LIDOCAINE 1% MPF 5 ML VIAL ONE (13:33)
[2023-07-30] MEDS ORDERED: propofoL 200 MG/20 ML VIAL IV ONE (13:34)
[2023-07-30] MEDS ORDERED: BISACODYL E.C. 5 MG TAB PO ONE (14:36)
[2023-07-30] MEDS ORDERED: GOLYTELY 4000 ML PO SCH ×2 (14:36→17:24)
[2023-07-30] MEDS ORDERED: MAGNESIUM CITRATE 300 ML BOT PO SCH (14:37)
--- NOTE | 2023-07-30 16:50 | PN ---
Date of Progress Note: 07/30/2023 Subjective: The patient was admitted to the hospital with hyponatremia and acidosis. The patient has hyponatremia secondary to depletional. Hypothyroidism and adrenal insufficiency has been ruled out. Objective: Vital Signs: Blood pressure 149/83, pulse of 80, afebrile. Chest: Clear to auscultation. Heart: S1, S2. Regular. Abdomen: Soft, nontender. Extremities: No edema. Neurologic: Alert. No focality. Laboratory Data: Sodium 125, potassium 4.5, bicarb 20, BUN 25, creatinine 0.6, GFR of 98, calcium 7.8, phosphorus 3.4, magnesium 1.7. Current Medications: The patient on, includes: 1. Flomax. 2. Aspirin. 3. Eliquis. 4. Calcium carbonate. 5. Citalopram. 6. Sodium bicarb. Assessment And Plan: 1. Hyponatremia secondary to depletional. Sodium continue to trend up. I am going to continue current hydration and we will follow up. 2. Acidosis, non-anion gap metabolic acidosis secondary to GI loss. Continue oral bicarb. 3. Hypertension, controlled, optimal. Continue current treatment. Time spent examining the patient [id number] reviewing that the lab and the radiology placing orders or discussing the case with the patient discussing the case with the [employer] team leader including hospitalist and nursing staff more than 35 minutes BRIDGER Voice ID: [id number] Report ID: [id number]
[2023-07-30] MEDS: BISACODYL E.C. 5 MG TAB PO ONE (17:25)
[2023-07-30] MEDS: METOCLOPRAMIDE 10 MG/2mL INJ IV SCH ×3 (17:34→23:17)
[2023-07-30] MEDS: ESZOPICLONE 1 MG TAB PO SCH (20:32)
[2023-07-30] MEDS: CITALOPRAM 10 MG TABLET PO SCH (20:32)
[2023-07-30] MEDS: ATORVASTATIN 40 MG TAB PO SCH (20:32)
[2023-07-30] MEDS: TAMSULOSIN 0.4 MG SR CAP PO SCH (20:32)
[2023-07-30] MEDS: CALAMINE LOTION 180ML TOP SCH (20:33)
[2023-07-30] MEDS: NA CHLORIDE 0.9% 1,000 ML IV SCH (21:20)
[2023-07-31] MEDS: NA CHLORIDE 0.9% 1,000 ML IV SCH ×2 (05:54→21:28)
[2023-07-31 06:59] LABS: Absolute Lymphocytes (CBC) 0.6 K/uL (0.7-4.9); Hematocrit 23.5 % (39.6-49.0); Lymphocytes % 6.5 % (15.3-44.8); MCV 71.4 fL (80-100); MPV 7.7 fL (7.6-11.3); Platelets 253 thou/uL (152-406)
[2023-07-31 07:12] LABS: Potassium 4.2 mEq/L (3.5-5.1)
[2023-07-31] MEDS ORDERED: SODIUM CHLORIDE 0.9% 10ML INJ IV PRN (07:19)
[2023-07-31] MEDS: OXYBUTYNIN ER 5 MG TAB PO SCH ×2 (09:00→21:53)
[2023-07-31] MEDS: VITAMIN D 1000 UNIT TAB PO SCH (09:00)
[2023-07-31] MEDS: CALAMINE LOTION 180ML TOP SCH ×2 (09:00→21:00)
[2023-07-31] MEDS: FINASTERIDE 5 MG TAB PO SCH (09:00)
[2023-07-31] MEDS: SODIUM BICARB 325 MG TAB PO SCH ×2 (09:00→21:31)
[2023-07-31] MEDS: [UNRECOGNIZED DRUG - OTHER] TOP SCH ×2 (09:00→21:00)
[2023-07-31] MEDS: ZINC SULFATE 220 MG CAP PO SCH ×2 (09:00→21:00)
[2023-07-31] MEDS: PANTOPRAZOLE 40 MG INJ IVP SCH ×2 (10:02→21:31)
--- NOTE | 2023-07-31 10:35 | P.PN ---
Subjective Date of Service: 07/31/23 Chief Complaint: Patient presents with questionable rectal bleeding /hyponatremia/SOB Pt is resting comfortably in bed. He is eager to go home. GI did EGD which showed esophagitis and gastritis. Will continue protonix and monitor Na level. No other complaints. Review of Systems Unremarkable General: Unremarkable Eyes: Unremarkable ENT: Unremarkable Respiratory: Unremarkable Cardiovascular: Unremarkable Gastrointestinal: Unremarkable Genitourinary: Unremarkable Musculoskeletal: Unremarkable Integumentary: Unremarkable Neurological: Unremarkable Lymphatics: Unremarkable Physical Examination - Vital Signs Temperature: 97.2 F Blood Pressure: 156/65 Pulse: 71 Respirations: 16 Pulse Ox (%): 100 - Physical Exam General: Alert, In no apparent distress, Oriented x3 HEENT: Atraumatic, Normocephalic Neck: Supple, 2+ carotid pulse no bruit Respiratory: Clear to auscultation bilaterally, Normal air movement Cardiovascular: No edema, Normal pulses, Regular rate/rhythm, Normal S1 S2 Capillary refill: <2 Seconds Gastrointestinal: Normal bowel sounds, Soft and benign, Non-distended Musculoskeletal: No clubbing, No swelling Integumentary: No rashes, No breakdown Neurological: Normal speech, Normal strength at 5/5 x4 extr, Normal tone, Sensation intact Lymphatics: No axilla or inguinal lymphadenopathy Assessment And Plan - Plan Hyponatremia: Na is 124 <- 123 <- 120. likely chronic. Will give IVF and follow up urine sodium and urine osm. Trend Na q4h GI bleed: Pt has blood in her stool. Hgb is 7.5 <- 7.9 <- 7.4. Will trend H/H and transfuse when Hgb is < 7. GI did EGD which showed esophagitis, esophageal ulcer, hiatal hernia, gastritis, specks of blood, duodenitis, and shallow ulcers in bulb. Will continue protonix. Pt will follow up path report with Dr. Santos in clinic. TIAN: Cr is 0.91 <- 0.68. Will avoid nephrotoxins and monitor renal function. CVA: continue home meds CAD: continue home med HLD: statin Hx of brain tumor: noted. Pulm nodule: CT chest shows RUL and bilateral lower lobe nodularities. Will follow up on outpt with CT chest. DVT ppx: lovenox Code: full
[2023-07-31] MEDS: ASPIRIN 81 MG CHEWABLE TABLET PO SCH (11:45)
[2023-07-31] MEDS: DOCOSAHEXANOIC AC/EPA 1000 MG PO SCH (11:45)
[2023-07-31] MEDS: ARIPiprazole 5 MG TAB PO SCH (11:46)
--- NOTE | 2023-07-31 11:57 | PN ---
Date of Progress Note: 07/31/2023 Subjective: Patient was admitted to the hospital with hyponatremia and acidosis. Patient is feeling better, still complaining of abdominal pain. Patient is planned for colonoscopy. Physical Examination: Vital Signs: Blood pressure 156/65, pulse of 71, afebrile. Chest: Clear to auscultation. Heart: S1, S2. Regular. Abdomen: Tenderness. No guarding or rebound. Laboratory Data: Hemoglobin 7.5. Sodium 128, trending up; potassium 4.2; bicarb 24; BUN 20; creatin ine 0.6; calcium 7.5. Assessment And Plan: 1.Hyponatremia secondary to depletional. Sodium continued to improve. I am going to continue IV fl uid. Patient is going to need GI prep. 2.Acidosis secondary to GI loss secondary to diarrhea, resolved. 3.Hypertension, controlled, not optimal. I am going to go ahead and add Norvasc. BRIDGER Voice ID: [id number] Report ID: [id number]
[2023-07-31] MEDS ORDERED: BISACODYL E.C. 5 MG TAB PO SCH (12:30)
[2023-07-31] MEDS: BISACODYL E.C. 5 MG TAB PO ONE (12:42)
[2023-07-31] MEDS ORDERED: GOLYTELY 4000 ML PO SCH (13:00)
[2023-07-31] MEDS ORDERED: MAGNESIUM CITRATE 300 ML BOT PO SCH (13:00)
[2023-07-31] MEDS: ESZOPICLONE 1 MG TAB PO SCH (21:00)
[2023-07-31] MEDS: ATORVASTATIN 40 MG TAB PO SCH (21:31)
[2023-07-31] MEDS: TAMSULOSIN 0.4 MG SR CAP PO SCH (21:31)
[2023-07-31] MEDS: CITALOPRAM 10 MG TABLET PO SCH (21:33)
[2023-08-01 06:42] LABS: Absolute Lymphocytes (CBC) 0.5 K/uL (0.7-4.9); Hematocrit 22.6 % (39.6-49.0); Lymphocytes % 9.1 % (15.3-44.8); MCV 71.2 fL (80-100); MPV 7.6 fL (7.6-11.3); Platelets 231 thou/uL (152-406); RBC Red Blood Cell Count 3.17 M/uL (4.33-5.43)
[2023-08-01 06:56] LABS: Potassium 3.6 mEq/L (3.5-5.1)
[2023-08-01] MEDS: OXYBUTYNIN ER 5 MG TAB PO SCH ×2 (09:00→20:42)
[2023-08-01] MEDS: ARIPiprazole 5 MG TAB PO SCH (09:00)
[2023-08-01] MEDS: DOCOSAHEXANOIC AC/EPA 1000 MG PO SCH (09:00)
[2023-08-01] MEDS: VITAMIN D 1000 UNIT TAB PO SCH (09:00)
[2023-08-01] MEDS: [UNRECOGNIZED DRUG - OTHER] TOP SCH ×2 (09:00→20:43)
[2023-08-01] MEDS: SODIUM BICARB 325 MG TAB PO SCH ×2 (09:00→20:40)
[2023-08-01] MEDS: ZINC SULFATE 220 MG CAP PO SCH ×2 (09:00→20:42)
[2023-08-01] MEDS: AMLODIPINE 5 MG TAB PO SCH (09:00)
[2023-08-01] MEDS: ASPIRIN 81 MG CHEWABLE TABLET PO SCH (09:00)
[2023-08-01] MEDS: CALAMINE LOTION 180ML TOP SCH ×2 (09:00→20:43)
[2023-08-01] MEDS: FINASTERIDE 5 MG TAB PO SCH (09:00)
[2023-08-01] MEDS ORDERED: NA CHLORIDE 0.9% 250 ML IV SCH (11:00)
--- NOTE | 2023-08-01 11:17 | P.PN ---
Subjective Date of Service: 08/01/23 Chief Complaint: Patient presents with questionable rectal bleeding /hyponatremia/SOB Subjective: No new changes, Improving, Doing well Patient is alert and oriented x 3 Resting in the bed NAD, low hemoglobin level today hgb 7.1/hct 22.6 Denies any pain or shortness of breath Vital stable <Mariel Moreno - Last Filed: 08/01/23 11:11> Date of Service: 08/02/23 <AnyaRosalva moya Jordy - Last Filed: 08/02/23 18:04> Review of Systems 10-point ROS is otherwise unremarkable <Mariel Moreno - Last Filed: 08/01/23 11:11> Physical Examination - Vital Signs Temperature: 97.2 F Blood Pressure: 143/74 Pulse: 70 Respirations: 18 Pulse Ox (%): 100 - Physical Exam General: Alert, In no apparent distress, Oriented x3 HEENT: Atraumatic, Normocephalic Neck: Supple, 2+ carotid pulse no bruit Respiratory: Clear to auscultation bilaterally, Normal air movement Cardiovascular: No edema, Normal pulses Capillary refill: <2 Seconds Gastrointestinal: Normal bowel sounds, Soft and benign, Non-distended Musculoskeletal: No clubbing, No swelling Integumentary: No rashes, No breakdown Neurological: Normal speech, Normal tone, Normal affect <Mariel Moreno - Last Filed: 08/01/23 11:11> Assessment And Plan - Current Problems (Diagnosis) (1) Hyponatremia Status: Acute (2) TIAN (acute kidney injury) Status: Acute (3) CAD (coronary artery disease) Status: Chronic Qualifiers: Coronary Disease-Associated Artery/Lesion type: [place] artery [place] vs. transplanted heart: [place] heart Associated angina: without angina Qualified Code(s): I25.10 - Atherosclerotic heart disease of [place] coronary artery without angina pectoris (4) CVA (cerebral vascular accident) Status: Chronic Qualifiers: CVA mechanism: unspecified Qualified Code(s): I63.9 - Cerebral infarction, unspecified (5) Dyslipidemia Status: Acute (6) HTN (hypertension) Status: Chronic Qualifiers: Hypertension type: primary hypertension Qualified Code(s): I10 - Essential (primary) hypertension (7) Rectal bleeding Status: Acute - Plan Hyponatremia: Improving. Na is 130<-124 <- 123 <- 120. likely chronic. Will continue IVF. GI bleed: Pt has blood in her stool. Hgb is 7.1<-7.5 <- 7.9 <- 7.4. Will trend H/H and transfuse when Hgb is < 7. GI. Denies rectal bleeding -did EGD which showed esophagitis, esophageal ulcer, hiatal hernia, gastritis, specks of blood, duodenitis, and shallow ulcers in bulb. Will continue protonix. Pt will follow up path report with Dr. Santos in clinic. TIAN:Improving. Cr is 0.52--<0.91 <- 0.68. Will avoid nephrotoxins and monitor renal function. CVA: continue home meds CAD: continue home med HLD: statin Hx of brain tumor: noted. Pulm nodule: CT chest shows RUL and bilateral lower lobe nodularities. Will follow up on outpt with CT chest. DVT ppx: lovenox Code: full Discharge Plan: Home Plan to discharge in: 48 Hours - Code Status/Comfort Care Code Status Assessed: Yes (full code) Code Status: Full Code Physician Review: Patient Assessed, Agree with Above Assessment and Plan Critical Care: No Time Spent Managing PTS Care (In Minutes): 35 (minutes) <Mariel Moreno - Last Filed: 08/01/23 11:11> - Plan Pt seen and examined. I agree with the note by the TRAVELERS' AID WORKER. GI will do colonoscopy <Rosalva Reddy - Last Filed: 08/02/23 18:04>
--- NOTE | 2023-08-01 12:30 | PN ---
Date of Progress Note: 08/01/2023 Subjective: The patient was admitted to the hospital with acute kidney injury, GI loss. The patient plan for colonoscopy. Physical Examination: Vital Signs: Blood pressure 143/74, pulse of 70, afebrile. Chest: Clear to auscultation. Heart: S1, S2. Regular. Abdomen: Tender. No guarding or rebound. Extremities: No edema. Neurologic: Alert. No focality. Laboratory Data: Hemoglobin 7.1. Sodium 130, potassium 3.6, bicarb 29, BUN 13, creatinine 0.5, calcium 7.4. Assessment And Plan: 1. Acute kidney injury secondary to prerenal, recovered, resolved. 2. Hyponatremia, depletional, recover sodium up to 130. Given the patient on a prep, we will continue hydration. 3. Hypokalemia. We will supplement. 4. Anemia secondary to GI loss. We will follow up with Primary. 5. Acidosis. Continue current sodium bicarb, recovered. Time spent examining the patient [id number] reviewing that the lab and the radiology placing orders or discussing the case with the patient discussing the case with the bakery team member including hospitalist and nursing staff more than 35 minutes BRIDGER Voice ID: [id number] Report ID: [id number]
[2023-08-01] MEDS: PANTOPRAZOLE 40 MG INJ IVP SCH ×2 (12:44→20:40)
[2023-08-01] MEDS: NA CHLORIDE 0.9% 1,000 ML IV SCH (12:44)
[2023-08-01] MEDS ORDERED: NA CHLORIDE 0.9% 1,000 ML ONE (12:57)
--- NOTE | 2023-08-01 13:40 | EKG ---
Test Date: 2023-07-29 Test Time: 06:59:35 Refinery Process Engineer: CADY MEASUREMENT RESULTS: Intervals: Rate: 71 [place]: QRSD: 104 QT: 446 QTc: 484 [place]: P: [place]: QRS: 63 T: 214 INTERPRETIVE STATEMENTS: Accelerated Junctional rhythm Incomplete right bundle branch block Cannot rule out Inferior infarct, age undetermined Abnormal ECG Compared to ECG 07/28/2023 11:18:56 Accelerated junctional rhythm now present Sinus rhythm no longer present First degree AV block no longer present ST (T wave) deviation no longer present Possible ischemia no longer present Myocardial infarct finding still present Electronically Signed On 08-01-23 13:26:33 DINING HOST by Russell Perry
--- NOTE | 2023-08-01 13:40 | EKG ---
Test Date: 2023-07-29 Test Time: 07:00:34 Software Sales Consultant: CADY MEASUREMENT RESULTS: Intervals: Rate: 70 [place]: QRSD: 110 QT: 444 QTc: 479 [place]: P: 84 MA: QRS: 64 T: 183 INTERPRETIVE STATEMENTS: Atrial flutter with 4:1 AV conduction Incomplete right bundle branch block Cannot rule out Inferior infarct, age undetermined Abnormal ECG Compared to ECG 07/29/2023 06:59:35 Accelerated junctional rhythm no longer present Myocardial infarct finding still present Electronically Signed On 08-01-23 13:26:27 SUPERVISORY CIVIL ENGINEER by Russell Perry
--- NOTE | 2023-08-01 13:43 | EKG ---
Test Date: 2023-07-28 Test Time: 11:18:56 Acid Dipper: PH MEASUREMENT RESULTS: Intervals: Rate: 66 CA: 384 QRSD: 108 QT: 468 QTc: 490 [place]: P: -27 CA: 384 QRS: 3 T: 226 INTERPRETIVE STATEMENTS: Sinus rhythm with 1st degree AV block Incomplete right bundle branch block Cannot rule out Inferior infarct, age undetermined ST & T wave abnormality, consider anterior ischemia Abnormal ECG Compared to ECG 07/18/2023 17:28:37 First degree AV block now present Incomplete right bundle-branch block now present ST (T wave) deviation now present Possible ischemia now present Atrial flutter no longer present Myocardial infarct finding still present Electronically Signed On 08-01-23 13:27:19 MACHINE DESIGN ENGINEER by Russell Perry
[2023-08-01] MEDS ORDERED: propofoL 200 MG/20 ML VIAL IV ONE (13:47)
[2023-08-01] MEDS ORDERED: LIDOCAINE 1% MPF 5 ML VIAL ONE (13:47)
[2023-08-01] MEDS ORDERED: NA CHLORIDE 0.9% 250 ML ONE (16:01)
[2023-08-01] MEDS: CITALOPRAM 10 MG TABLET PO SCH (20:40)
[2023-08-01] MEDS: ATORVASTATIN 40 MG TAB PO SCH (20:40)
[2023-08-01] MEDS: ESZOPICLONE 1 MG TAB PO SCH (20:41)
[2023-08-01] MEDS: TAMSULOSIN 0.4 MG SR CAP PO SCH (20:41)
[2023-08-01 21:59] VITALS: O2SAT 97
[2023-08-02] MEDS: NA CHLORIDE 0.9% 1,000 ML IV SCH ×2 (02:40→06:29)
[2023-08-02 07:01] LABS: Hematocrit 26.5 % (39.6-49.0)
[2023-08-02] MEDS: OXYBUTYNIN ER 5 MG TAB PO SCH (08:08)
[2023-08-02] MEDS: ASPIRIN 81 MG CHEWABLE TABLET PO SCH (08:08)
[2023-08-02] MEDS: ARIPiprazole 5 MG TAB PO SCH (08:09)
[2023-08-02] MEDS: ZINC SULFATE 220 MG CAP PO SCH (08:09)
[2023-08-02] MEDS: FINASTERIDE 5 MG TAB PO SCH (08:10)
[2023-08-02] MEDS: VITAMIN D 1000 UNIT TAB PO SCH (08:10)
[2023-08-02] MEDS: SODIUM BICARB 325 MG TAB PO SCH (08:10)
[2023-08-02] MEDS: AMLODIPINE 5 MG TAB PO SCH (08:10)
[2023-08-02] MEDS: DOCOSAHEXANOIC AC/EPA 1000 MG PO SCH (08:10)
[2023-08-02] MEDS: [UNRECOGNIZED DRUG - OTHER] TOP SCH (08:13)
[2023-08-02] MEDS: CALAMINE LOTION 180ML TOP SCH (09:00)
[2023-08-02] MEDS: PANTOPRAZOLE 40 MG INJ IVP SCH (09:15)
[2023-08-02 12:03] VITALS: BP 137/71; TEMP 97.6
--- NOTE | 2023-08-02 12:11 | P.DS ---
Admission Date: 07/28/23 Discharge Date: 08/02/23 Reason for Admission: Patient presents with questionable rectal bleeding /hyponatremia/SOB - Problems (1) Hyponatremia Status: Acute (2) TIAN (acute kidney injury) Status: Acute (3) CAD (coronary artery disease) Status: Chronic Qualifiers: Coronary Disease-Associated Artery/Lesion type: [place] artery [place] vs. transplanted heart: [place] heart Associated angina: without angina Qualified Code(s): I25.10 - Atherosclerotic heart disease of [place] coronary artery without angina pectoris (4) CVA (cerebral vascular accident) Status: Chronic Qualifiers: CVA mechanism: unspecified Qualified Code(s): I63.9 - Cerebral infarction, unspecified (5) Dyslipidemia Status: Acute (6) HTN (hypertension) Status: Chronic Qualifiers: Hypertension type: primary hypertension Qualified Code(s): I10 - Essential (primary) hypertension (7) Rectal bleeding Status: Acute Brief History of Present Illness: History of Present Illness: Patient is a 72-year-old gentleman With a history of brain tumor and CVA as well as hypertension and CAD presents to the hospital with shortness of breath. Patient also was having some rectal bleeding. Patient's hemoglobin was 7.3 on arrival. When I spoke to the patient he did not mention any bleeding time knee. Patient does state he gets short of breath on ambulation. He was also found to be severely hyponatremic. Patient is on numerous medications that can result in hyponatremia including Remeron, Abilify,doxepin, etc. with the med and check a urine sodium level to further assess this. Monitor patient's H&H overnight as well. Patient with nose active bleeding at this time. Spoke to GI and they will see the patient later today. Patient will be admitted to the hospital for further evaluation. Hospital Course: Mr. Santamaria is a pleasant 72-year-old male patient with a past medical history significant for hypertension, CAD brain tumor and CVA] who was admitted to the [facility] on 07/28/2023 for Shortness of breath and rectal bleeding. Patient was admitted to the hospital, started on IV hydration. Patient was referred to business development executive Dr. Echeverria. Colonoscopy done on 9 08/01/2023 showing diverticulosis. On 08/02/2023, patient was seen on morning rounds and deemed medically stable for discharge. Hold aspirin and Eliquis at this time. Patient was discharged with instructions to schedule follow-up appointments with PCP 1 week, Dr. Echeverria in 2 weeks and fender mechanic in 2 week to discuss about his anticoagulation. The patient and family members were given the opportunity to ask questions and reported no further questions. 1. Please call and schedule a follow-up appointment with your PCP ( [text]) in 3-5 days 2. Please call and schedule a follow-up appointment with [text] in 3-5 days - Please follow-up with your PCP for medication refills/adjustments -Please call if any questions regarding hospital stay -Please call nursing station at [phone] if any nursing or medication questions -Return to the emergency room if symptoms worsen. <Mariel Moreno - Last Filed: 08/02/23 12:08> Admission Date: 07/28/23 Discharge Date: 08/02/23 Hospital Course: Pt seen and examined. i agree with the note by the CARETAKER RESORT. Ok to discharge pt. Hold aspirin and Eliquis until you follow up with your PCP. EGD showed diverticulosis and colon polyp. <Rosalva Reddy - Last Filed: 08/02/23 17:52> Disposition: ROUTINE DISCHARGE Discharge Condition: GOOD Vital Signs/Physical Exam: Temp Pulse Resp BP Pulse Ox 97.6 F 72 16 137/71 98 08/02/23 11:59 08/02/23 11:59 08/02/23 11:59 08/02/23 11:59 08/02/23 11:59 General: Alert, Oriented x3 HEENT: Atraumatic Neck: Supple, 2+ carotid pulse no bruit Respiratory: Clear to auscultation bilaterally, Normal air movement Cardiovascular: No edema, Normal pulses, Regular rate/rhythm, Normal S1 S2 Capillary refill: <2 Seconds Gastrointestinal: Normal bowel sounds, Soft and benign Musculoskeletal: No clubbing, No swelling, No contractures Integumentary: No rashes, No breakdown Neurological: Normal speech, Normal tone, Normal affect Laboratory Data at Discharge: WBC 5.60 thou/uL (4.3-10.9) 08/01/23 06:20 Hgb 8.6 g/dL (13.6-17.9) L D 08/02/23 05:55 Hct 26.5 % (39.6-49.0) L 08/02/23 05:55 Plt Count 231 thou/uL (152-406) 08/01/23 06:20 PT 19.6 SECONDS (9.5-12.5) H 07/29/23 05:28 INR 1.81 07/29/23 05:28 APTT 34.9 SECONDS (24.3-36.9) 07/29/23 05:28 Sodium 130 mEq/L (136-145) L 08/01/23 06:20 Potassium 3.6 mEq/L (3.5-5.1) D 08/01/23 06:20 BUN 13 mg/dL (7-18) 08/01/23 06:20 Creatinine 0.52 mg/dL (0.70-1.30) L 08/01/23 06:20 Glucose 91 mg/dL (74-106) 08/01/23 06:20 Uric Acid 4.5 mg/dL (3.5-7.2) 07/30/23 08:20 Phosphorus 3.4 mg/dL (2.5-4.9) 07/30/23 08:20 Magnesium 1.7 mg/dL (1.6-2.4) 07/30/23 08:20 Total Bilirubin 0.6 mg/dL (0.2-1.0) 07/28/23 11:15 AST 30 U/L (15-37) 07/28/23 11:15 ALT 29 U/L (16-61) 07/28/23 11:15 Alkaline Phosphatase 88 U/L (45-117) 07/28/23 11:15 <Mariel Moreno - Last Filed: 08/02/23 12:08> Vital Signs/Physical Exam: Temp Pulse Resp BP Pulse Ox 97.6 F 72 16 137/71 98 08/02/23 11:59 08/02/23 11:59 08/02/23 11:59 08/02/23 11:59 08/02/23 11:59 Laboratory Data at Discharge: WBC 5.60 thou/uL (4.3-10.9) 08/01/23 06:20 Hgb 8.6 g/dL (13.6-17.9) L D 08/02/23 05:55 Hct 26.5 % (39.6-49.0) L 08/02/23 05:55 Plt Count 231 thou/uL (152-406) 08/01/23 06:20 PT 19.6 SECONDS (9.5-12.5) H 07/29/23 05:28 INR 1.81 07/29/23 05:28 APTT 34.9 SECONDS (24.3-36.9) 07/29/23 05:28 Sodium 130 mEq/L (136-145) L 08/01/23 06:20 Potassium 3.6 mEq/L (3.5-5.1) D 08/01/23 06:20 BUN 13 mg/dL (7-18) 08/01/23 06:20 Creatinine 0.52 mg/dL (0.70-1.30) L 08/01/23 06:20 Glucose 91 mg/dL (74-106) 08/01/23 06:20 Uric Acid 4.5 mg/dL (3.5-7.2) 07/30/23 08:20 Phosphorus 3.4 mg/dL (2.5-4.9) 07/30/23 08:20 Magnesium 1.7 mg/dL (1.6-2.4) 07/30/23 08:20 Total Bilirubin 0.6 mg/dL (0.2-1.0) 07/28/23 11:15 AST 30 U/L (15-37) 07/28/23 11:15 ALT 29 U/L (16-61) 07/28/23 11:15 Alkaline Phosphatase 88 U/L (45-117) 07/28/23 11:15 <Rosalva Reddy - Last Filed: 08/02/23 17:52> Diet: Low sodium Activity: Ad devora Physician Review: Patient Assessed, Agree with Above Assessment and Plan Time spent managing pt's care (in minutes): 55 (minutes) <Mariel Moreno - Last Filed: 08/02/23 12:08> <Rosalva Reddy - Last Filed: 08/02/23 17:52> Home Medications: Aripiprazole [Abilify] 5 mg PO DAILY 07/28/23 Atorvastatin Calcium 40 mg PO BEDTIME 07/28/23 Calamine/Zinc Oxide [Calamine Lotion] 177 ml TP BID 07/28/23 Calcium Carbonate [Antacid] 200 mg PO BID PRN 07/28/23 Cholecalciferol (Vitamin D3) [Vitamin D3] 25 mcg PO DAILY 07/28/23 Citalopram [Celexa*] 20 mg PO BEDTIME 07/28/23 Doxepin HCl [Sinequan] 100 mg PO BEDTIME 07/28/23 Eszopiclone [Lunesta] 3 mg PO BEDTIME 07/28/23 Finasteride 5 mg PO DAILY 07/28/23 Lanolin Alcohol/Mo/W.pet/[place] [Eucerin Cream] 454 gm TP BID 07/28/23 Metformin HCl 1,000 mg PO BIDAC 07/28/23 Mirtazapine 7.5 mg PO BEDTIME 07/28/23 [place]-3/Dha/Epa/Fish Oil [Fish Oil 1,000 mg Softgel] 1 each PO DAILY 07/28/23 Oxybutynin Chloride [Oxybutynin Chloride ER] 5 mg PO BID 07/28/23 Sennosides/Docusate Sodium [Senna Plus Tablet] 2 each PO BEDTIME PRN 07/28/23 Tamsulosin HCl [Flomax] 2 tab PO BEDTIME 07/28/23 Zinc Gluconate [Zinc] 50 mg PO BID 07/28/23 Physician Discharge Instructions: Mr. Santamaria is a pleasant 72-year-old male patient with a past medical history significant for hypertension, CAD brain tumor and CVA] who was admitted to the [facility] on 07/28/2023 for Shortness of breath and rectal bleeding. Patient was admitted to the hospital, started on IV hydration. Patient was referred to business development executive Dr. Echeverria. Colonoscopy done on 9 08/01/2023 showing diverticulosis. On 08/02/2023, patient was seen on morning rounds and deemed medically stable for discharge. Hold aspirin and Eliquis at this time. Patient was discharged with instructions to schedule follow-up appointments with PCP 1 week, Dr. Echeverria in 2 weeks. and fender mechanic 2 weeks to discuss about the anticoagulation. The patient and family members were given the opportunity to ask questions and reported no further questions. 1. Please call and schedule a follow-up appointment with your PCP in 3-5 days - Please follow-up with your PCP for medication refills/adjustments -Please call if any questions regarding hospital stay -Please call nursing station at [phone] if any nursing or medication questions -Return to the emergency room if symptoms worsen. Followup: NONE,NONE [Primary Care Provider] - Russell Perry MD [ACTIVE - CAN ADMIT] - 1-2 Weeks Braxton Santos MD [ASSOCIATE-ACTIVE - CAN ADMIT] - 1-2 Weeks
== END 2023-08-02 14:37 | disposition home health service (06) | DRG 377 ==
LOC: ER 10:43 → ERHOLD 15:54 → 2ND 16:46
PROVIDERS: ADMIT Hospitalist; ATTEND Hospitalist
PROC: 0DB78ZX Excision of Stomach, Pylorus, Via Natural or Artificial Opening Endoscopic, Diagnostic (ICD-10-PCS; 2023-07-30)
PROC: 0DB68ZX Excision of Stomach, Via Natural or Artificial Opening Endoscopic, Diagnostic (ICD-10-PCS; principal; 2023-07-30 14:00)
PROC: 0DJD8ZZ Inspection of Lower Intestinal Tract, Via Natural or Artificial Opening Endoscopic (ICD-10-PCS; 2023-08-01)
PROC: 30233N1 Transfusion of Nonautologous Red Blood Cells into Peripheral Vein, Percutaneous Approach (ICD-10-PCS; 2023-08-01)
DX: K29.71 Gastritis, unspecified, with bleeding (principal); J18.9 Pneumonia, unspecified organism; E87.1 Hypo-osmolality and hyponatremia; I69.351 Hemiplegia and hemiparesis following cerebral infarction affecting right dominant side; K22.10 Ulcer of esophagus without bleeding; N17.9 Acute kidney failure, unspecified; E87.20 Acidosis, unspecified; K21.00 Gastro-esophageal reflux disease with esophagitis, without bleeding; K26.9 Duodenal ulcer, unspecified as acute or chronic, without hemorrhage or perforation; K44.9 Diaphragmatic hernia without obstruction or gangrene; K63.5 Polyp of colon; K57.30 Diverticulosis of large intestine without perforation or abscess without bleeding; I10 Essential (primary) hypertension; E78.5 Hyperlipidemia, unspecified; D49.6 Neoplasm of unspecified behavior of brain; E87.6 Hypokalemia; K64.8 Other hemorrhoids; I25.10 Atherosclerotic heart disease of native coronary artery without angina pectoris; I25.2 Old myocardial infarction; R91.8 Other nonspecific abnormal finding of lung field; Z79.82 Long term (current) use of aspirin; Z79.84 Long term (current) use of oral hypoglycemic drugs; Z79.899 Other long term (current) drug therapy
CPT/HCPCS: 36415; 71045; 71250; 74177; 80048; 80076; 81001; 82533; 82550; 82947; 83735; 83880; 83935; 84100; 84300; 84443; 84484; 84550; 85014; 85018; 85025; 85610; 85730; 86850; 86900; 86901; 86920; 88304; 88305; 88312; 93005; C9113; J2001; J2704; J2765; J7030; J7040; J7050; P9040; Q9967

== ENCOUNTER → 2023-08-02 | Emergency (ER) | payer OTHER ==
[~2023-08-02] MED LIST changes: -DERMABOND SKIN ADHESIVE TOP ONE; +DOXEPIN HCL 25 MG CAP ONE; +ESZOPICLONE 1 MG TAB ONE
--- OUTSIDE RECORDS SUMMARY | 2023-08-02 16:55 | XMS REPORT | Continuity of Care Document ---
Author Name Unknown Address [address] [facility] [address] [place] [address] [facility] Address [address] [facility] [address] [place] [address] Care Team Providers Care Vessel Manager Name Role Phone Cheikh Gutierrez Attending Clinician [...] s DA Active U 2021-07 00:00: 00 [facility] No Known Allergie s DA Active U 08-08 00:00: 00 [facility] No Known Allergie s DA Active U 08-08 00:00: 00 [facility] Encounters Start Date/Time End Date/Time Encounter Type Admission Type Attending Clinicians Care Facility Care Department Encounter ID Source 2022-05-30 01:41:00 2022-06-11 13:02:00 Inpatient EM Cheikh Gutierrez HCAPM INTE.02 [id number] [facility] 2022-05-31 07:53:00 2022-05-31 07:53:00 Outpatient Cheikh Gutierrez HCACL LABO [id number] 65 [facility] Results Test Description Test Time Test Comments Results Result Co mments Source GLUCOSE BEDSIDE [id number] 21:09:00* Test Item Value Reference Range Interpretation Comme nts GLUCOSE BEDSIDE TESTING (hipolito t code = GLUBED) 140 mg/dL 70-110 H GLUCOSE BEDSIDE [id number] 17:24:00* Test Item Value Reference Range Interpretation Comme nts GLUCOSE BEDSIDE TESTING (hipolito t code = GLUBED) 161 mg/dL 70-110 H GLUCOSE BEDSIDE [id number] 12:02:00* Test Item Value Reference Range Interpretation Comme nts GLUCOSE BEDSIDE TESTING (hipolito t code = GLUBED) 174 mg/dL 70-110 H GLUCOSE BEDSIDE [id number] 08:11:00* Test Item Value Reference Range Interpretation Comme nts GLUCOSE BEDSIDE TESTING (hipolito t code = GLUBED) 206 mg/dL 70-110 H GLUCOSE BEDSIDE [id number] 20:56:00* Test Item Value Reference Range Interpretation Comme nts GLUCOSE BEDSIDE TESTING (hipolito t code = GLUBED) 185 mg/dL 70-110 H GLUCOSE BEDSIDE [id number] 16:18:00* Test Item Value Reference Range Interpretation Comme nts GLUCOSE BEDSIDE TESTING (hipolito t code = GLUBED) 77 mg/dL 70-110 N GLUCOSE BEDSIDE [id number] 11:27:00* Test Item Value Reference Range Interpretation Comme nts GLUCOSE BEDSIDE TESTING (hipolito t code = GLUBED) 206 mg/dL 70-110 H GLUCOSE BEDSIDE [id number] 20:22:00* Test Item Value Reference Range Interpretation Comme nts GLUCOSE BEDSIDE TESTING (hipolito t code = GLUBED) 111 mg/dL 70-110 H GLUCOSE BEDSIDE [id number] 17:12:00* Test Item Value Reference Range Interpretation Comme nts GLUCOSE BEDSIDE TESTING (hipolito t code = GLUBED) 189 mg/dL 70-110 H GLUCOSE BEDSIDE [id number] 11:37:00* Test Item Value Reference Range Interpretation Comme nts GLUCOSE BEDSIDE TESTING (hipolito t code = GLUBED) 140 mg/dL 70-110 H GLUCOSE BEDSIDE [id number] 08:13:00* Test Item Value Reference Range Interpretation Comme nts GLUCOSE BEDSIDE TESTING (hipolito t code = GLUBED) 86 mg/dL 70-110 N GLUCOSE BEDSIDE [id number] 21:00:00* Test Item Value Reference Range Interpretation Comme nts GLUCOSE BEDSIDE TESTING (hipolito t code = GLUBED) 105 mg/dL 70-110 N GLUCOSE BEDSIDE [id number] 16:42:00* Test Item Value Reference Range Interpretation Comme nts GLUCOSE BEDSIDE TESTING (hipolito t code = GLUBED) 164 mg/dL 70-110 H GLUCOSE BEDSIDE [id number] 12:33:00* Test Item Value Reference Range Interpretation Comme nts GLUCOSE BEDSIDE TESTING (hipolito t code = GLUBED) 142 mg/dL 70-110 H GLUCOSE BEDSIDE [id number] 07:44:00* Test Item Value Reference Range Interpretation Comme nts GLUCOSE BEDSIDE TESTING (hipolito t code = GLUBED) 131 mg/dL 70-110 H GLUCOSE BEDSIDE [id number] 20:25:00* Test Item Value Reference Range Interpretation Comme nts GLUCOSE BEDSIDE TESTING (hipolito t code = GLUBED) 147 mg/dL 70-110 H GLUCOSE BEDSIDE [id number] 17:00:00* Test Item Value Reference Range Interpretation Comme nts GLUCOSE BEDSIDE TESTING (hipolito t code = GLUBED) 181 mg/dL 70-110 H GLUCOSE BEDSIDE [id number] 11:40:00* Test Item Value Reference Range Interpretation Comme nts GLUCOSE BEDSIDE TESTING (hipolito t code = GLUBED) 160 mg/dL 70-110 H GLUCOSE BEDSIDE [id number] 07:25:00* Test Item Value Reference Range Interpretation Comme nts GLUCOSE BEDSIDE TESTING (hipolito t code = GLUBED) 129 mg/dL 70-110 H GLUCOSE BEDSIDE [id number] 22:36:00* Test Item Value Reference Range Interpretation Comme nts GLUCOSE BEDSIDE TESTING (hipolito t code = GLUBED) 157 mg/dL 70-110 H GLUCOSE BEDSIDE [id number] 12:18:00* Test Item Value Reference Range Interpretation Comme nts GLUCOSE BEDSIDE TESTING (hipolito t code = GLUBED) 178 mg/dL 70-110 H GLUCOSE BEDSIDE [id number] 08:12:00* Test Item Value Reference Range Interpretation Comme nts GLUCOSE BEDSIDE TESTING (hipolito t code = GLUBED) 122 mg/dL 70-110 H GLUCOSE BEDSIDE [id number] 05:55:00* Test Item Value Reference Range Interpretation Comme nts GLUCOSE BEDSIDE TESTING (hipolito t code = GLUBED) 146 mg/dL 70-110 H GLUCOSE BEDSIDE [id number] 22:17:00* Test Item Value Reference Range Interpretation Comme nts GLUCOSE BEDSIDE TESTING (hipolito t code = GLUBED) 154 mg/dL 70-110 H GLUCOSE BEDSIDE [id number] 17:19:00* Test Item Value Reference Range Interpretation Comme nts GLUCOSE BEDSIDE TESTING (hipolito t code = GLUBED) 170 mg/dL 70-110 H GLUCOSE BEDSIDE [id number] 11:47:00* Test Item Value Reference Range Interpretation Comme nts GLUCOSE BEDSIDE TESTING (hipolito t code = GLUBED) 139 mg/dL 70-110 H GLUCOSE BEDSIDE [id number] 06:51:00* Test Item Value Reference Range Interpretation Comme nts GLUCOSE BEDSIDE TESTING (hipolito t code = GLUBED) 97 mg/dL 70-110 N BASIC METABOLIC [id number] 04:49:00* Test Item Value Reference Range Interpretation [...] CA) 7.3 MG/DL 8.5-10.1 L CBC W/AUTO [id number] 04:10:00* Test Item Value Reference Range Interpretation [...] = MDIFF) NO DIFF/SCN CRITERIA GLUCOSE BEDSIDE [id number] 20:43:00* Test Item Value Reference Range Interpretation Comme nts GLUCOSE BEDSIDE TESTING (hipolito t code = GLUBED) 218 mg/dL 70-110 H GLUCOSE BEDSIDE [id number] 18:31:00* Test Item Value Reference Range Interpretation Comme nts GLUCOSE BEDSIDE TESTING (hipolito t code = GLUBED) 118 mg/dL 70-110 H GLUCOSE BEDSIDE [id number] 11:16:00* Test Item Value Reference Range Interpretation Comme nts GLUCOSE BEDSIDE TESTING (hipolito t code = GLUBED) 179 mg/dL 70-110 H GLUCOSE BEDSIDE [id number] 08:01:00* Test Item Value Reference Range Interpretation Comme nts GLUCOSE BEDSIDE TESTING (hipolito t code = GLUBED) 126 mg/dL 70-110 H CBC W/AUTO [id number] 06:17:00* Test Item Value Reference Range Interpretation [...] = MDIFF) NO DIFF/SCN CRITERIA GLUCOSE BEDSIDE [id number] 20:13:00* Test Item Value Reference Range Interpretation Comme nts GLUCOSE BEDSIDE TESTING (hipolito t code = GLUBED) 221 mg/dL 70-110 H GLUCOSE BEDSIDE [id number] 16:23:00* Test Item Value Reference Range Interpretation Comme nts GLUCOSE BEDSIDE TESTING (hipolito t code = GLUBED) 128 mg/dL 70-110 H GLUCOSE BEDSIDE [id number] 11:31:00* Test Item Value Reference Range Interpretation Comme nts GLUCOSE BEDSIDE TESTING (hipolito t code = GLUBED) 188 mg/dL 70-110 H GLUCOSE BEDSIDE [id number] 07:44:00* Test Item Value Reference Range Interpretation Comme nts GLUCOSE BEDSIDE TESTING (hipolito t code = GLUBED) 168 mg/dL 70-110 H CBC W/AUTO [id number] 02:01:00* Test Item Value Reference Range Interpretation [...] = MDIFF) NO DIFF/SCN CRITERIA GLUCOSE BEDSIDE [id number] 20:22:00* Test Item Value Reference Range Interpretation Comme nts GLUCOSE BEDSIDE TESTING (hipolito t code = GLUBED) 108 mg/dL 70-110 N GLUCOSE BEDSIDE [id number] 12:05:00* Test Item Value Reference Range Interpretation Comme nts GLUCOSE BEDSIDE TESTING (hipolito t code = GLUBED) 172 mg/dL 70-110 H CBC W/AUTO [id number] 09:34:00* Test Item Value Reference Range Interpretation [...] = MDIFF) NO DIFF/SCN CRITERIA GLUCOSE BEDSIDE [id number] 08:06:00* Test Item Value Reference Range Interpretation Comme nts GLUCOSE BEDSIDE TESTING (hipolito t code = GLUBED) 149 mg/dL 70-110 H GLUCOSE BEDSIDE [id number] 21:06:00* Test Item Value Reference Range Interpretation Comme nts GLUCOSE BEDSIDE TESTING (hipolito t code = GLUBED) 190 mg/dL 70-110 H GLUCOSE BEDSIDE [id number] 17:03:00* Test Item Value Reference Range Interpretation Comme nts GLUCOSE BEDSIDE TESTING (hipolito t code = GLUBED) 173 mg/dL 70-110 H THROMBOPLASTIN TIME [id number] 07:42:00* Test Item Value Reference Range Interpretation Comme nts THROMBOPLASTIN TIME PARTIAL (test code = PTT) 84.9 SECONDS 26-35 H TROP-I HIGH [id number] 05:07:00* Test Item Value Reference Range Interpretation [...] .Date & Time Test Performed: .CBC W/AUTO [id number] 04:52:00* Test Item Value Reference Range Interpretation [...] = MDIFF) NO DIFF/SCN CRITERIA THROMBOPLASTIN TIME [id number] 00:12:00* Test Item Value Reference Range Interpretation Comme nts THROMBOPLASTIN TIME PARTIAL (test code = PTT) 37.0 SECONDS 26-35 H PROTHROMBIN [id number] 23:24:00* Test Item Value Reference Range Interpretation [...] Infarction (to prevent recurrent infarct). TROP-I HIGH [id number] 18:28:00* Test Item Value Reference Range Interpretation [...] varyby method. Completed by Nursing: NOGLUCOSE BEDSIDE [id number] 16:45:00* Test Item Value Reference Range Interpretation Comme nts GLUCOSE BEDSIDE TESTING (hipolito t code = GLUBED) 188 mg/dL 70-110 H - MRI BRAIN W/O [id number] 15:22:00 [facility] 1950 Sex: M FAX: Eddi Guerra MD [phone] Camps: PM St: ADM FAX: Cheikh Gutierrez MD [phone] Name: FRAN SANTAMARIAland : 1950 Age/S: 71/M [address] Unit #: [id number] Loc: [place] [address] Phys: Eddi Hoff MD Acct: [id number] Dis Date: Status: ADM IN PHONE #: [phone] Exam Date: 05/30/2022 1440 FAX #: Reason: possible cva EXAMS: CPT: [id number] MRI BRAIN W/O CONTRAST 40552TACQ: - MRI BRAIN W/O CONTRAST CLINICAL INDICATION: [...] cerebral volume loss with associated ex vacuo dilationof the lateral ventricles. The major vessel T2 flow-voids are well-maintained throughout the brain.The globes are intact and symmetric in volume with no evidence of pre or post septal pathology. There is evidence of prior bilateral cataract surgery. There is complete fluid opacification of the left sphenoid sinus and left posterior ethmoid air cells. Minimal because of thickening in the dependent left maxillary sinus. The mastoid air cells are clear. IMPRESSION: No evidence of acute infarct orhemorrhage. Moderate cerebral volume loss. Left frontoparietal convexity meningioma again noted. 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 PAGE 1 Signed Report (CONTINUED) FAX: Eddi Guerra MD [phone] Camps: PM St: ADM FAX: Cheikh Gutierrez MD [phone] Name: FRAN SANTAMARIA [facility] : 1950 Age/S: 71/M [address] Unit #: [id number] Loc: [place] [address] Phys: Eddi Hoff MD Acct: [id number] Dis Date: Status: ADM IN PHONE #: [phone] Exam Date: 05/30/2022 1440 FAX #: Reason: possible cva EXAMS: CPT: [id number] MRI BRAIN W/O CONTRAST 01134 (Continued) at 1522 Reported and signed by: Jun Vincent D.O. CC: Eddi Hoff MD; Cheikh Gutierrez MD Technologist:RT Khang(R)(CT)(MR) Transcribed Date/Time/By: 05/30/2022 (1522) :CostaJW22 Orig Print D/T: S: 05/30/2022 (3756) PAGE 2 Signed ReportTHROMBOPLASTIN TIME [id number] 15:09:00* Test Item Value Reference Range Interpretation Comme nts THROMBOPLASTIN TIME PARTIAL (test code = PTT) 79.4 SECONDS 26-35 H GLUCOSE BEDSIDE [id number] 12:42:00* Test Item Value Reference Range Interpretation Comme nts GLUCOSE BEDSIDE TESTING (hipolito t code = GLUBED) 103 mg/dL 70-110 N GLUCOSE BEDSIDE [id number] 08:23:00* Test Item Value Reference Range Interpretation Comme nts GLUCOSE BEDSIDE TESTING (hipolito t code = GLUBED) 192 mg/dL 70-110 H GLYCOSYLATED HEMOGLOBIN [id number] 06:37:00* Test Item Value Reference Range Interpretation Comme nts GLYCOSYLATED HEMOGLOBIN (HA1 C) (test code = GLYHGB) 6.0 % A1C 0.0-5.7 H ESTIMATED AVERAGE GLUCOSE (t est code = EAG) 126 MG/DLest CBC W/AUTO [id number] 05:56:00* Test Item Value Reference Range Interpretation [...] PTT) 27.6 SECONDS 26-35 N BASIC METABOLIC [id number] 05:43:00* Test Item Value Reference Range Interpretation [...] = LDL) 43 MG/DL 0-129 N <100 LULPQKV38 0 - 129 NEAR OPTIMAL/ABOVE [id number] - 159 HOFOLLVCOL774 - 189 HIGH>OR= 190 VERY HIGHNOTE THAT GUIDELINES ARE PROVIDED BY NATIONAL CHOLESTEROLEDUCATION PROGRAM ADULT TREATMENT PANEL III LDL/HDL (test code = LDL/HDL) 0.91 Ratio See_Comment L [Automated [employer] ge] The system which generated this result transmitted reference range: 1.48-3.22 Avg. The reference range was not used to interpret this result as normal/abnormal. TROP-I HIGH [id number] 04:54:00* Test Item Value Reference Range Interpretation [...] SEEN Indication for culture: Suprapubic PainBASIC METABOLIC [id number] 16:03:00 * Test Item Value Reference Range [...] 8.5-10.1 N Completed by Nursing: NOTROP-I HIGH [id number] 16:03:00* Test Item Value Reference Range Interpretation [...] varyby method. Completed by Nursing: NOTHROMBOPLASTIN TIME [id number] 15:44:00* Test Item Value Reference Range Interpretation Comme nts THROMBOPLASTIN TIME PARTIAL (test code = PTT) 28.9 SECONDS 26-35 N PROTHROMBIN [id number] 15:44:00* Test Item Value Reference Range Interpretation [...] Infarction (to prevent recurrent infarct). CBC W/AUTO [id number] 15:34:00* Test Item Value Reference Range Interpretation [...] MDIFF) NO DIFF/SCN CRITERIA - CT ANGIO [id number] 14:48:00 [facility] 1950 Sex: M Name: FRAN SANTAMARIA : 1950 Age/S: 71 / M [address] Unit #: [id number] Loc: [place] [address] Phys: Cami Salomon Jordy DO Acct: [id number] Dis Date: Status: REG ER PHONE #: [phone] Exam Date: 05/29/20221411 FAX #: Reason: ams EXAMS: CPT: [id number] CT ANGIO NECK 94676 HISTORY: CVA Technique: Axial tomograms through the [...] bifurcation is patent with moderate atherosclerotic changes. Thereis mild less than 50% narrowing demonstrated involving [...] SANTAMARIA : 1950 Age/S: 71 / M [address] Unit #: [id number] Loc: [place] [address] Phys: Cami Salomon Jordy DO Acct: [id number] Dis Date: Status: REG ER PHONE #: [phone] Exam Date: 05/29/2022 1412 FAX #: Reason: ams EXAMS: CPT: [id number] CT ANGIO NECK [address]8862 (Continued) anterior cerebral arteries and middle cerebral arteries are patent bilaterally. No aneurysm identified. No large vessel occlusion or significant intracranial stenosis. An anterior communicating artery is demonstrated. The distal vertebral arteries, basilar artery, andposterior cerebral arteries are patent. The major intracranial venous sinuses are patent. Dural based meningioma at the left vertex is noted. IMPRESSION: 1. Scattered atherosclerotic plaque with mildless than 50% narrowing at the left carotid bifurcation. No other area of significant stenosis. 2. No intracranial large vessel occlusion. at 1448 Reported and signed by: Olegario Griffith M.D. CC: Cami Salomon DO Technologist:RT Myrna,(R),(CT) CTDI: DLP: Trnscb Date/Time: 05/29/2022 (1448) t.[email or web address].RXC2 Orig Print D/T: S: 05/29/2022 (9097) PAGE 2 Signed Report- CT ANGIO [id number] 14:48:00 [facility] : 1950 Sex: M Name: FRAN SANTAMARIA [facility] : 1950 Age/S: 71 / M [address] Unit #: [id number] Loc: [place] [address] Phys: Cami Salomon DO Acct: [id number] Dis Date: Status: REG ER PHONE #: [phone] Exam Date: 05/29/2022 1415 FAX #: Reason: ams EXAMS: CPT: [id number] CT ANGIO HEAD [address]88 HISTORY: CVA Technique: Axial tomograms through the [...] 1 Signed Report (CONTINUED) Name: FRAN SANTAMARIA [facility] [place] : 1950 Age/S: 71 / M [address] Unit#: [id number] Loc: [place] [address] Phys: Cami Salomon DO Acct: [id number] Dis Date: Status: REG PHONE #: [phone] Exam Date: 05/29/2022 1415 FAX #: Reason: ams EXAMS: CPT: [id number] CT ANGIO HEAD [address]1235 (Continued) anterior cerebral arteries and middle cerebral arteries are patent bilaterally. No aneurysm identified. No large vessel occlusion or significant intracranial stenosis. An anterior communicating artery is demonstrated. The distal vertebral arteries, basilar artery,and posterior cerebral arteries are patent. The major intracranial venous sinuses are patent. Duralbased meningioma at the left vertex is noted. IMPRESSION: 1. Scattered atherosclerotic plaque with mild less than 50% narrowing at the left carotid bifurcation. No other area of significant stenosis.2. No intracranial large vessel occlusion. Electronically Signed by Barbara Dempsey Case on05/29/2022 at 1448 Reported and signed by: Olegario Griffith M.D. CC: Cami Salomon DO Technol ogist:Carolyn Rizzo, RT,(R),(CT) CTDI: DLP: Trnscb Date/Time: 05/29/2022 (1448) [email or web address] Orig Print D/T: S: 05/29/2022 (8885) PAGE 2 Signed Report- XR CHEST 1 [id number] 14:44:00 [facility] : 1950 Sex: M Name: FRAN SANTAMARIA [facility] : 1950 Age/S: 71 / M [address] [address] Unit #: [id number] Loc: [place] [address] Phys: Cami Salomon DO Acct: [id number] Dis Date: Status: REG ER PHONE #: [phone] Exam Date: 05/29/2022 1421 FAX #: Reason: Code Stroke EXAMS: CPT: [id number] XR CHEST 1 V 90138 Fluoro Time: DAP (Gy m2): Air Kerma [...] PAGE 1 Signed Report Name: FRAN SANTAMARIA [facility] : 1950 Age/S: 71 / M [address] [place] [address] Unit #: [id number] Loc: [place] [address] Phys: AimeCami Spence DO Acct: [id number] Dis Date: Status: REG ER PHONE #: [phone] Exam Date: 05/29/2022 1421 FAX #: Reason: Code Stroke EXAMS: CPT: [id number] XR CHEST 1 V 70900 Fluoro Time: DAP (Gy m2): Air Kerma (mGy): (Continued) Technologist: BK BROOKS Trnscb Date/Time: 05/29/2022 (1446) CostaRXC2 PAGE 2 Signed Report- CT HEAD/BRAIN W/O [id number] 14:43:00 [facility] : 1950 Sex: M Name: FRAN SANTAMARIA [facility] : 1950 Age/S: 71 / M [address] [facility] Unit #: [id number] Loc: [place] [address] Phys: Cami Salomon DO Acct: [id number] Dis Date: Status: REG ER PHONE #: [phone] Exam Date: 05/29/2022 1405 FAX #: Reason: ams EXAMS: CPT: [id number] CT HEAD/BRAIN W/O CONT 28535 Location code: H5 CT Brain Without Contrast [...] 1 Signed Report (CONTINUED) Name: FRAN SANTAMARIA [facility] : 1950 Age/S: 71 / M [address] [address] Unit #: [id number] Loc: [place] [address] Phys: Cami Salomon DO Acct: [id number] Dis Date: Status: REG ER PHONE #: [phone] Exam Date: 05/29/2022 1405 FAX #: Reason: ams EXAMS: CPT: [id number] CT HEAD/BRAIN W/O CONT 47239 (Continued) at 1443 Reported and signed by: David Silverman M.D. CC: Cami Salomon DO Technologist:Carolyn Rizzo, RT ,(R),(CT) CTDI: DLP: Trnscb Date/Time: 05/29/2022 (1443) t.SDR.[email or web address] Orig Print D/T: S: 05/29/2022 (1446) PAGE 2 Signed ReportGLUCOSE BEDSIDE [id number] 07:59:00* Test Item Value Reference Range Interpretation Comme nts GLUCOSE BEDSIDE TESTING (hipolito t code = GLUBED) 191 mg/dL 70-110 H BASIC METABOLIC [id number] 05:11:00* Test Item Value Reference Range Interpretation [...] CA) 7.9 MG/DL 8.5-10.1 L CBC W/AUTO [id number] 05:01:00* Test Item Value Reference Range Interpretation [...] ode = MDIFF) NO DIFF/SCN CRITERIA URINALYSIS [id number] 21:02:00* Test Item Value Reference Range Interpretation [...] = LEUU) NEGATIVE Leuk/mcL NEGATIVE GLUCOSE BEDSIDE [id number] 20:47:00* Test Item Value Reference Range Interpretation Comme nts GLUCOSE BEDSIDE TESTING (hipolito t code = GLUBED) 199 mg/dL 70-110 H GLUCOSE BEDSIDE [id number] 17:00:00* Test Item Value Reference Range Interpretation Comme nts GLUCOSE BEDSIDE TESTING (hipolito t code = GLUBED) 219 mg/dL 70-110 H GLUCOSE BEDSIDE [id number] 13:26:00* Test Item Value Reference Range Interpretation Comme nts GLUCOSE BEDSIDE TESTING (hipolito t code = GLUBED) 185 mg/dL 70-110 H - MRI BRAIN W/O [id number] 11:53:00FAX: Chekih Gutierrez MD [phone] Camps: PM St: ADM Name: FRAN SANTAMARIA [facility] : 1950 Age/S: 67/[address] Unit #: [id number] Loc: [address] [place] [address] Phys: Cheikh Gutierrez MD Acct: [id number] Dis Date: Status: ADM IN PHONE #: [phone] Exam Date: 08/09/2018 2124 FAX #: Reason: Brain Mass EXAMS: CPT: [id number] MRI BRAIN W/O CONTRAST 35472 Location: T 18 MRI brain, 08/09/18 COMPARISON [...] the finding isointense to brain parenchyma on T1- weighted imaging and slightly higher than brain on T2-weighted imaging. It measures 2.1 cm in AP dimension by 2.1 cm in transverse size by approximately 12 mm in cc dimension and is likely indicative of a dural-based meningioma. It exhibitsminimal local mass effect on the left frontal lobe without associated edema. 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 This is of moderate size with cystic encephalomalacia. No acute vascular insult is identified in this patient. 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 There is a tiny old lacunar infarct in the left PCAterritory. There is normal flow void involving the [...] Signed Report (CONTINUED) FAX: Cheikh Gutierrez MD [phone] Camps: PM St: ADM -- Name: FRAN SANTAMARIA [facility] : 1950 Age/S: 67/M [address] [facility] Unit #: [id number] Loc: [address] [place] [address] Phys: Cheikh Gutierrez MD Acct: [id number] Dis Date: Status: ADM IN PHONE #: [phone] Exam Date: 08/09/2018 1137 FAX #: Reason: Brain Mass EXAMS: CPT: [id number] MRI BRAIN W/O CONTRAST 65842 (Continued) No acute vascular insult. No intracranial hemorrhage. Old vascular insult in particular the left LFY territory. Chronic microvascular changes elsewhere. at 1153 Reported and signedby: Daina Viera M.D. CC: Cheikh Gutierrez MD Technologist: Mainor Schreiber RT(R)(CT) Transcribed Date/Time/By: 08/09/2018 (3123) :CostaDAS6 Orig Print D/T: S: 08/09/2018 (7723) PAGE 2 SignedReportGLUCOSE BEDSIDE [id number] 07:25:00* Test Item Value Reference Range Interpretation Comme nts GLUCOSE BEDSIDE TESTING (hipolito t code = GLUBED) 170 mg/dL 70-110 H GLUCOSE BEDSIDE [id number] 22:47:00* Test Item Value Reference Range Interpretation Comme nts GLUCOSE BEDSIDE TESTING (hipolito t code = GLUBED) 207 mg/dL 70-110 H COMPREHENSIVE METABOLIC [id number] 20:45:00* Test Item Value Reference Range Interpretation [...] 75 Unit/L 50-136 N Completed by Nursing: [id number] 20:45:00* Test Item Value Reference Range Interpretation Comme nts MAGNESIUM (test code = MAG) 1.6 MG/DL 1.8-2.4 L Completed by Nursing: NONT PRO-BRAIN NATRIURETIC [id number] 20:45:00* Test Item Value Reference Range Interpretation Comme nts NT PRO-BRAIN NATRIURETIC PEP TI (test code = PROBNP) 559 PG/ML 0-100 H Completed by Nursing: [id number] 20:45:00* Test Item Value Reference Range Interpretation [...] Completed by Nursing: NO- CT HEAD/BRAIN W/O [id number] 20:36:00Name: FRAN SANTAMARIA [facility] : 1950 Age/S: 67 / M [id number] [place] Unit #: [id number] Loc: [place] [address] Phys: Crissy Anders MD Acct: [id number] Dis Date: Status: REG ER PHONE #: [phone] Exam Date: 08/08/20182024 FAX #: Reason: RLE weakness; eval for stroke EXAMS: CPT: [id number] CT HEAD/BRAIN W/O CONT 81403 CT HEAD WITHOUT CONTRAST. HISTORY: RLE weakness; eval for stroke COMPARISON: No comparison is available. TECHNIQUE: Axial CT images of the head were obtained with coronal and/or sagittal reformatted views. Automated exposure control, iterative reconstruction technique, and/or adjustment of mA and/or kV according to patient's size was utilized for radiation dose reduction. IV CONTRAST: None. Location: R16. FINDINGS: Encephalomalacia within the leftfrontal lobe within the MCA territory. 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 Mild amount of periventricular and deep white matter hypodensities are seen, these are most commonly associated with chronic, microvascular ischemic changes. Mild generalized atrophy is noted. There is likely an extra- axial lesion towards the vertex the region of the left frontal lobe measuring 1.7 x 1.2 x 1.2 cm. Atherosclerotic calcifications affect the vertebral arteriesand carotid siphons. No other intracranial abnormalities such as hemorrhage, mass, mass effect, hydrocephalus, midline shift, extra-axial fluid collection or secondary signs of an acute infarct are noted. The calvarium and skull base are intact. The paranasal sinus and mastoid air cells are clear. I MPRESSION: No evidence of acute intracranial abnormality. 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 Extra-axial lesion towards the vertex of the left frontal lobe measuring 1.7 x 1.2 x 1.2 cm, likely related to a meningioma. If not previously assessed, recommend follow-up with anMRI brain without and with contrast. PAGE 1 Signed Report (CONTINUED) Name: FRAN SANTAMARIA [place] : 1950 Age/S: 67 / M [address] Unit #: [id number] Loc: [place] [address] Phys: Crissy Anders MD Acct: [id number] Dis Date: Status: REG ER PHONE #: [phone] Exam Date: 08/08/20182024 FAX #: Reason: RLE weakness; eval for stroke EXAMS: CPT: [id number] CT HEAD/BRAIN W/O CONT 84714 (Continued) at 2035 Reported and signed by: Hua Anaya M.D. CC: Crissy Anders MD Technologist:Damon Kat RT(R)(CT) CTDI: DLP: Trnscb Date/Time: 08/08/2018 (2035) tJAMAICAR.SP17 Orig Print D/T: S: 08/08/2018 (2038) CTDI: DLP: PAGE 2 Signed Report- XR CHEST 1 V 2018-08-08 20:35:00Name: FRAN SANTAMARIA [facility] : 1950 Age/S: 67 / M [address] Unit #: [id number] Loc: [place] [address] Phys: Crissy Anders MD Acct: [id number] Dis Date: Status: REGER PHONE #: [phone] Exam Date: 08/08/20182029 FAX #: Reason: RLE weakness; eval for stroke EXAMS: CPT: [id number] XR CHEST 1 V 19515 Fluoro Time: DAP (Gy m2): Air Kerma (mGy): LOCATION: Q15 HISTORY: 67-year-old male with right lower extremity weakness. COMMENT: A frontal chest radiograph wasobtained at the bedside at 8:02 p.m. The [...] PAGE 1 Signed Report Name: FRAN SANTAMARIA [facility] : 1950 Age/S: 67 / M [address] Unit #: [id number] Loc: [place] [address] Phys: Crissy Anders MD Acct: [id number] Dis Date: Status: REG ER PHONE #: [phone] Exam Date: 08/08/20182029 FAX #: Reason: RLE weakness; eval for stroke EXAMS: CPT: [id number] XR CHEST 1 V 09818 Fluoro Time: DAP (Gy m2): Air Kerma (mGy): (Continued) Technologist: Damon Kat RT(R)(CT) Trnscb Date/Time: 08/08/2018 (2034) tTANYARLA2 Orig Print D/T: S: 08/08/2018 (2037) PAGE 2 Signed ReportCBC W/AUTO TKTN1238-27-08 20:22:00* Test Item Value Reference Range Interpretation [...] Notes Date/Time Note Provider Source 2022-06-10 18:02:00 [id number] sLUMJe2N3JtT4v7vrqRwZjGslrhjb jhN0M75JQHjpS9dnD4nuXUfnkOl5805-61-66K45:02:00 [facility] ([facility])Wound Care Progress NoteREPORT#:[id number] REPORT STATUS: SignedDATE:06/10/22 TIME:1801 PATIENT: FRAN SANTAMARIA UNIT #: [id number]#: [id number] [address] AGE: 71 SEX: M ATTEND: MattCheikh MDADM AUTHOR: Yakov Kate MD * ALL [...] status Consultants: cardiology at 1803 RPT #: [id number] OF REPORT PNProcedure bizc2338-44-72R46:02:00L.CAHT53056761-5774GGFeowp able for patient ubakTFFRNNDTFLRYZL4986-16-02P52:03:32 [facility] 2022-06-10 10:31:00 BZ1696523011FkM7lP3s XSLFPEbxTxBbcLbk7FaPkFgvHGdQY 5tDd9SSrazAxFU8VR1GfTMvgNeb5151-88-07I99:31:00 [facility] ([facility])Hospitalist Progress NoteREPORT#:[id number] REPORT STATUS: SignedDATE:06/10/22 TIME:1031 PATIENT: FRAN SANTAMARIA UNIT #: [id number]#: [id number] [address] AGE: 71 SEX: M ATTEND: Cheikh Gutierrez [facility] AUTHOR: Anneliese Eden MD * ALL [...] capillary refill, no cyanosis, no edemaMusculoskeletal: normal inspectionNeuro/INSPECTOR RUBBER STAMP DIE: right hemiparesis, alert, oriented X 3, normal [...] significant acute abnormality 2. Elevated troponin-type II CA trended troponin x3 Monitor on the telemetry [...] home with home health Likely discharge to personal-senior living Saturday -family agreeable at 1032 RPT #: [id number] OF REPORT PRProgress xlcj4616-16-41S54:31:00L.MRNC53742008-0635MITthag able for patient ljugYAODWTINZXSAJC4297-38-87J73:32:34 [facility] 2022-06-10 10:30:00 SZ8827780035b6ZvTjzq UqIcsPrpUzeiH2slD5HJJDqLwF5nF piFKTN2LzrTSfBy/3eN7Yi+LQcu5102-93-74O38:30:00 [facility] ([facility])Hospitalist Progress NoteREPORT#:[id number] REPORT STATUS: SignedDATE:06/10/22 TIME:1030 PATIENT: FRAN SANTAMARIA UNIT #: [id number]#: [id number] [address]L: [address] AGE: 71 SEX: M ATTEND: Cheikh [...] capillary refill, no cyanosis, no edemaMusculoskeletal: normal inspectionNeuro/INSPECTOR RUBBER STAMP DIE: right hemiparesis, alert, oriented X 3, normal [...] significant acute abnormality 2. Elevated troponin-type II CA trended troponin x3 Monitor on the telemetry [...] with case management at 1031 RPT #: [id number] OF REPORT PRProgress jgmz3130-42-08D28:30:00L.VIRG04380037-5134NXWfxyp able for patient vzjyYWJTNWUPAWZPBQ4715-48-88W35:32:03 [facility] 2022-06-09 18:15:00 XM06520091203W94pKC2 INRrVVvbdbrAD2MPKNoVvidATAxb0 FDeiBEoGUQ6JltyP1G5nRO9QQSz5457-70-31Z65:15:00 [facility] ([facility])Wound Care Progress NoteREPORT#:[id number] REPORT STATUS: SignedDATE:06/09/22 TIME:1814 PATIENT: FRAN SANTAMARIA UNIT #: [id number]#: [id number] ROOM/BED: [facility]Y043-1DHI: 50 AGE: 71 SEX: M ATTEND: Cheikh Gutierrez [facility] AUTHOR: Yakov Kate MD * ALL [...] Street DIETAssessment completed: 06/08/22 Physical ExamGeneral appearance: chronically [...] status Consultants: cardiology at 1817 RPT #: [id number] OF REPORT PNProcedure qfys8961-88-09F61:15:00L.DCXX67991841-7478KZKseih able for patient qccbNXRHLSNXHPXFHT5734-48-22W28:17:32 [facility] 2022-06-08 21:09:00 ZY2922262590beRzxnsK 7fEsc+8o/XAkauI95FlF20FyIe6pm 0Vy0DHY1acPr/EVu9/4gzmDFf0K7058-26-50F82:09:00 [facility] ([facility])Wound Care Progress NoteREPORT#:[id number] REPORT STATUS: SignedDATE:06/08/22 TIME:2108 PATIENT: FRAN SANTAMARIA UNIT #: [id number]#: [id number] [address] AGE: 71 SEX: M ATTEND: hCeikh Gutierrez MDADM AUTHOR: Yakov Kate MD * ALL [...] status Consultants: cardiology at 2110 RPT #: [id number] OF REPORT PNProcedure ewef9063-70-20O10:09:00L.PTOB85884123-8543NDJrxta able for patient rscqTBEQRYAGCXZNNP1487-19-29Q63:10:55 [facility] 2022-06-08 11:04:00 NP6010638928H64JDDtv fwfS8grt4AzMTcZ7MXERUEV99mbsM KG0KXmrqcvyLNQ+/mOhQZOEhrkC1397-39-19G00:04:00 [facility]Hospital[facility] Progress NoteREPORT#:[id number] REPORT STATUS: SignedDATE:06/08/22 TIME:1104 PATIENT: FRAN SANTAMARIA UNIT #: [id number]#: [id number] [address]: [address] AGE: 71 SEX: M ATTEND: Cheikh Gutierrez [facility] AUTHOR: Anneliese Eden MD * ALL [...] capillary refill, no cyanosis, no edemaMusculoskeletal: normal inspectionNeuro/INSPECTOR RUBBER STAMP DIE: right hemiparesis, alert, oriented X 3, normal [...] significant acute abnormality 2. Elevated troponin-type II CA trended troponin x3 Monitor on the telemetry [...] with case management at 1106 RPT #: [id number] OF REPORT PRProgress rqry1915-04-17M13:04:00L.RRJT81892698-8406FEKqlkt able for patient sgtyHOKZLVFFWNZXBA2921-32-19A82:07:09 [facility] 2022-06-08 09:12:00 NF6694188931U5kSx3Nd WCgM2GLAWmsDZqPtKYCGUU/XQa0A4 rcFKmL+qFOmDClv/hNYqp+MosGa8006-67-66Y43:12:00 [facility] ([facility])Cardiology Progress NoteREPORT#:[id number] REPORT STATUS: SignedDATE:06/08/22 TIME:911 PATIENT: FRAN SANTAMARIA UNIT #: [id number]#: [id number] [address] AGE: 71 SEX: M ATTEND: Cheikh Gutierrez [facility] AUTHOR: Sammie Johnson APRN * ALL edits [...] ill-looking male, appear confused, hx provided by [facility]. The patient has PMH of CVA, AFib on Eliquis, CAD with prior PCI who presented to ED with abnormal speech. Initial Head imaging negative for acute IC finding. Troponin came back elevated and cardiology consultation is requested. Troponin: 160.5->223.5. EKG showed atrial fibrillation with controlled rate, no acute ST/T wave changes. The patient denies chest pain or SOB. BIANCA/sister Ayla Ace phone [phone]. Subjective: Denies any chest pain or shortness [...] BID 06/01 2100 AC 06/08 PO 07/01 2058 0827 Lisinopril 2.5 MG DAILY 06/01 900 AC 06/08 PO 07/01 858 0827 Metoprolol Succinate 25 MG DAILY 06/01 900 AC 06/08 PO 07/01 0759 0828 Apixaban 5 MG Q12HR 05/31 2100 AC 06/08 PO 06/14 2059 08 Atorvastatin Calcium 40 MG BEDTIME 05/30 2100 AC 06/07 PO 06/29 2059 213 Aspirin 81 MG DAILY 05/30 1133 AC 06/08 PO 06/29 1132 0827 Citalopram 10 MG DAILY 05/30 900 AC 06/08 Hydrobromide PO 06/29 859 0828 Finasteride 5 MG DAILY 05/30 900 AC 06/08 PO 06/29 045 0827 Ketoconazole 1 APPLIC DAILY 05/30 900 AC 06/08 TOPICAL 06/13 859 0828 Oxybutynin Chloride 5 MG BID 05/30 900 AC 06/08 PO 06/29 859 0828 Tamsulosin HCl 0.8 MG DAILY 05/30 900 AC 06/08 PO 06/29 859 0828 Insulin Human Lispro See Dose AC HS 05/30 0730 AC 06/07 Insts (1) SUBQ 06/29 07 1728 Dextrose/Water 50 ML ASDIR PRN 05/30 0515 CKD IV 06/29 0514 Docusate Sodium 100 MG Q12H PRN PRN 05/30 0500 AC PO 06/29 0459 Trazodone HCl 150 MG BEDTIME PRN 05/30 0500 AC 06/08 PO 06/29 0459 0116 Dose Instructions:(1)Insulin Human Lispro: S/SCALE LOW Vital signs as abovePhysical examination:GEN: chronically ill appearing, frail, alert, awake, no acute distress, pleasantHEENT: NC/AT, EOMICARD: iRRR, normal S1/S2,+ murmurLUNGS: CTA w/o added sounds, GBAE.ABD: Soft, nondistended, nontender. Intact BSEXT: No obvious deformities. No edema. Peripheral pulses intactNEURO: AOx2-3, decreased ROMSKIN: Warm and dry, no rashes/lesions.PSYCH: Appropriate mood and affect Laboratory Tests: 06/08 [...] CAD with prior stentleaning toward Type II CA in the setting of possible TIA or [...] daily Stop amlodipine BIANCA/sister Ayla Ace phone [phone]. No further cardiac workup. Outpatient follow-up with [...] with any questions or concerns. Sammie Johnson, [facility] [employer] Dr. Sarah Chavez MD-Attending CardiologistSWillapa [facility] Card[facility] at 1055 at 0614 RPT #: [id number] OF REPORT PRProgress lkpl7233-22-32F17:12:00L.DAOI31826914-7259NXNhztz able for patient byqoOGRBPCVVLOAJXE1149-56-52L55:01:49 [facility] 2022-06-07 22:04:00 [id number] o5hzM9pD6HBSnRofsIg5n9T56Rp5A T06ocXYhPn+jr4GEHlhsIOIuqgq4983-52-29R05:04:00 [facility] ([facility])Wound Care Progress NoteREPORT#:[id number] REPORT STATUS: SignedDATE:06/07/22 TIME:2203 PATIENT: FRAN SANTAMARIA UNIT #: [id number]#: [id number] [address]: [address] AGE: 71 SEX: M ATTEND: Cheikh Gutierrez [facility] AUTHOR: Yakov Kate MD * ALL [...] status Consultants: cardiology at 2205 RPT #: [id number] OF REPORT PNProcedure psvw3096-66-52J72:04:00L.YZZX70973824-2853TZCpbbn able for patient forePTYWXHZHGYMPAR7131-02-20W75:06:13 [facility] 2022-06-07 16:35:00 [id number]/l9 2DhLlAA97IpOeT4m2Lkrljf1mrzwJ YU2a/hPc2bwAKuZD+lX5BXrZZed1565-51-60Y88:35:00 [facility] ([facility] Progress NoteREPORT#:[id number] REPORT STATUS: SignedDATE:06/07/22 TIME:1635 PATIENT: FRAN SANTAMARIA UNIT #: [id number]#: [id number] ROOM/BED: R213-7DND: 50 AGE: 71 SEX: M ATTEND: Cheikh Gutierrez [facility] AUTHOR: Ramsey Marrero MD * ALL [...] the consult.05/31 stable; no evidence for new xcajyw97/2 review of MRI shows moderate to large area of encephalomalacia in Left superior fromtalarea + what appears to be a meningioma just posterior to this. Concern is that of seizure with postictal confusion. Will add depakote and follow as outpatient in view of difficulty of obtainingEEG on the weekend.06/07 eeg has much artifact but bifrontal slowing is noted at 1639 RPT #: [id number] OF REPORT PRProgress jhlu9921-17-52J51:35:00L.ACLU08435563-1885YFNduvs able for patient ojomKHZMUICCAWBSXL5617-44-99C37:39:46 [facility] 2022-06-07 15:07:00 UB5431323262hOR1+79l YfncrIN0Ygr7tjCnRV2GPQolVRj1M gNMs3j5X1MfPkcsKyzYEc36CwNT4554-89-07S62:07:94968 8-0003 [facility] [address] [place] [address] PATIENT NAME: FRAN SANTAMARIA ADMIT DATE: 05/30/22ACCOUNT NO: [id number] ROOM NO: L.S218 AGE: 71 REPORT TYPE: ELECTROENCEPHALOGRAM SEX: M [...] Dictated: 06/07/2022 15:07:30Date Transcribed: 06/07/2022 21:39:34/Edenilson #: [id number] ID: [id number] by Ramsey Marrero MD On 07/25/2022 09:19:45 AM at 0919 PATIENT NAME: FRAN SANTAMARIA qoiepsw0747-89-83U64:39:00L.SCCGR01713834-6730DEX vailable for patient vwvrQNAHJIBXOWDHYU8676-13-16K22:20:20 [facility] 2022-06-07 11:22:00 QL9075541117tcxmaOgE TFil7Q2mym14aL1YU6o7tTcxj94Rh whsb3RXhUWxGwzSk1U7bUqSZI1A6620-93-50H03:22:00 [facility] ([facility])Hospitalist Progress NoteREPORT#:[id number] REPORT STATUS: SignedDATE:06/07/22 TIME:1121 PATIENT: FRAN SANTAMARIA UNIT #: [id number]#: [id number] ROOM/BED: A185-4ERE: 50 AGE: 71 SEX: M ATTEND: Cheikh Gutierrez [facility] AUTHOR: Anneliese Eden MD * ALL [...] capillary refill, no cyanosis, no edemaMusculoskeletal: normal inspectionNeuro/INSPECTOR RUBBER STAMP DIE: right hemiparesis, alert, oriented X 3, normal [...] significant acute abnormality 2. Elevated troponin-type II CA trended troponin x3 Monitor on the telemetry [...] with case management at 1124 RPT #: [id number] OF REPORT PRProgress kisl6410-04-35E65:22:00L.CFHH21889676-8645BZZnaav able for patient sfjoKTMZQPKFFWZSGZ3821-04-18G99:24:49 [facility] 2022-06-07 09:30:00 [id number] Q+8zvweOPdyI+C23WgUyh/GpSRugF YjOKnWAVr+RJsca0+bkZomz3Fme9939-41-41M52:30:00 [facility] ([facility])Infectious Dis. Progress NoteREPORT#:[id number] REPORT STATUS: SignedDATE:06/07/22 TIME:929 PATIENT: FRAN SANTAMARIA UNIT #: [id number]#: [id number] [address] AGE: 71 SEX: M ATTEND: Cheikh Gutierrez [facility] AUTHOR: Evelyn Jiménez MD * ALL [...] hour I O ending at 0700: 06/07 1900 Intake Total Output Total Balance Number 5 Incontinent Voids PATIENT WEIGHT: Weight (lb): Weight (oz): Weight (kg): 71.400 Physical ExamGeneral appearance: awakeHead/Eyes: atraumatic, normocephalicENT: moist mucosal membranesNeck: no masses or swellingCardiovascular: regular rate rhythmRespiratory: no distressAbdomen: soft, no distentionGenitourinary: no flank painExtremities: no clubbing, no cyanosisMusculoskeletal: no joint swellingNeuro/INSPECTOR RUBBER STAMP DIE: altered mental statusSkin: Multiple signs of excoriations [...] off ABConsultants: cardiology at 1317 RPT #: [id number] OF REPORT PRProgress derq5150-52-73D11:30:00L.YHDE01792917-7958EEQjmfk able for patient fxlyMNSQTILZZYZUTY5989-56-99D90:17:26 [facility] 2022-06-06 22:46:00 YN8354237422n+oADrtD nFPHOJVpGDWwH1YMhHxKXJEbPPUc8 YY5pZitZTLChB7d8aJDo87E7cep2212-86-68S22:46:00 [facility])Wound Care Progress NoteREPORT#:[id number] REPORT STATUS: SignedDATE:06/06/22 TIME:2245 PATIENT: FRAN SANTAMARIA UNIT #: [id number]#: [id number] [address]: [address] AGE: 71 SEX: M ATTEND: Cheikh Gutierrez [facility] AUTHOR: Yakov Kate MD * ALL [...] status Consultants: cardiology at 2247 RPT #: [id number] OF REPORT PNProcedure vblb9917-41-59C59:46:00L.XWQZ89803528-0820CVWetik able for patient zmjqJBHHZYGIKUTNWH5731-38-43T63:47:56 [facility] 2022-06-06 14:53:00 NS1568726244nLdgpgyX Xyzdu3LS1u9zfK2nAuyU8dgsUcG3M knaUzP3X2EYm1FMVxnFdDGdC2gq8686-15-92O14:53:00 [facility])Cardiology Progress NoteREPORT#:[id number] REPORT STATUS: SignedDATE:06/06/22 TIME:1453 PATIENT: FRAN SANTAMARIA UNIT #: [id number]#: [id number] [address]: [address] AGE: 71 SEX: M ATTEND: Cheikh Gutierrez [facility] AUTHOR: Sammie Johnson APRN * ALL [...] pain or SOB. CHARLIEA/sister Ayla Ace phone [phone]. Subjective: Denies any chest pain or shortness of breath Objective:Vital SignsDate Temp Pulse Resp B/P B/P Mean Pulse Ox NaA926/06-06/06 97.5-98.2 57-72 14-16 105-162/55-86 71.8-111.4 94-99 Current [...] BEDTIME 05/30 2100 AC 06/05 PO 06/29 Aspirin 81 MG DAILY 05/30 1133 AC 06/06 PO 06/29 113 0850 Citalopram 10 MG DAILY 05/30 900 AC 06/06 Hydrobromide PO 06/29 0859 0849 Finasteride 5 MG DAILY 05/30 900 AC 06/06 PO 06/29 0459 0849 Ketoconazole 1 APPLIC DAILY 05/30 900 AC 06/06 TOPICAL 06/13 0859 0850 Oxybutynin Chloride 5 MG BID 05/30 900 AC 06/06 PO 06/29 0859 0849 Tamsulosin [...] ill-looking male, appear confused, hx provided by [facility]. The patient has PMH of CVA, AFib [...] CAD with prior stentleaning toward Type II CA in the setting of possible TIA or [...] daily Stop amlodipine CHARLIEA/sister Ayla Ace phone [phone]. No further cardiac workup. Outpatient follow-up with [...] with any questions or concerns. Sammie Johnson [facility] [employer] Dr. Sarah Chavez MD-Attending CardiologistSWillapa [facility] Hospital Cardiology at 7409 at 2227 RPT #: [id number] OF REPORT PRProgress utvr5115-21-92G13:53:00L.MOQS28653542-0014QRLfhwm able for patient icdfYPWTQBOUOAATBA8701-08-37F97:55:41 [facility] 2022-06-06 12:01:00 NI8934300473EuwhkhxG gpBYa3QZke7IvczETSqWBXI0dwpeH 8QeLG43K5P6uGBqIg1g1e5nkThj0326-85-20Z95:01:00 [facility] ([facility])Hospitalist Progress NoteREPORT#:[id number] REPORT STATUS: SignedDATE:06/06/22 TIME:1201 PATIENT: FRAN SANTAMARIA UNIT #: [id number]#: [id number] [address] AGE: 71 SEX: M ATTEND: Cheikh Gutierrez AUTHOR: Cheikh [...] capillary refill, no cyanosis, no edemaMusculoskeletal: normal inspectionNeuro/INSPECTOR RUBBER STAMP DIE: right hemiparesis, alert, oriented X 3, normal [...] significant acute abnormality 2. Elevated troponin-type II CA trended troponin x3 Monitor on the telemetry [...] Family appealed discharge at 1208 RPT #: [id number] OF REPORT PRProgress nukh6088-92-40E55:01:00L.LJVY43936828-5258CDXkpdq able for patient mlskUNWZJVMAGUBEPH4256-42-77R57:08:27 [facility] 2022-06-06 10:03:00 XY1339228396GhRsFjyt 4hlaisapXyIhxpQhFA/EikABwVB+T ccljZ1yyTdJs6cheNr+UhHvTlnd4870-13-68O70:03:00 [facility] ([facility])Infectious Dis. Progress NoteREPORT#:[id number] REPORT STATUS: SignedDATE:06/06/22 TIME:1003 PATIENT: FRAN SANTAMARIA UNIT #: [id number]#: [id number] [address] AGE: 71 SEX: M ATTEND: Cheikh Gutierrez [facility] AUTHOR: Evelyn Jiménez MD * ALL [...] Pulse Resp B/P B/P Mean Pulse Ox ZzG531/-06/06 36.4-36.8 60-72 14-17 101-162/51-86 67.6-111.4 94-99 Last Documented: Result Date Time Pulse Ox 97 06/06 631 B/P 162/86 06/06 631 B/P Mean 111.4 06/06 631 O2 Delivery Room air 06/06 631 Temp 36.6 06/06 631 Pulse 71 06/06 631 Resp 14 06/06 [...] hour I O ending at 0700: 06/06 0706/05 190 Intake Total Output Total 200 Balance -200 Number 1 Bowel Movements Number 1 Incontinent Voids Output, Urine 200 PATIENT WEIGHT: Weight (lb): Weight (oz): Weight (kg): 71.400 Physical ExamGeneral appearance: awakeHead/Eyes: atraumatic, normocephalicENT: moist mucosal membranesNeck: no masses or swellingCardiovascular: regular rate rhythmRespiratory: symmetric expansion, no distressAbdomen: soft, no distentionGenitourinary: no flank painExtremities: no clubbing, no cyanosisMusculoskeletal: no joint swellingNeuro/INSPECTOR RUBBER STAMP DIE: altered mental statusSkin: Multiple signs of exciriations [...] off ABConsultants: cardiology at 1326 RPT #: [id number] OF REPORT PRProgress szpi9959-63-82M15:03:00L.GHNC67195738-5023INFcmwy able for patient odyxXIUSJYGXECXKCI0999-11-08L19:27:09 [facility] 2022-06-05 19:39:00 FT8920356962pe6WJQYZ XoZScmJxSSBiJ/C5+wiQv3PVvhSsh vd/ZeHXOwuJI/8gex/H5PSGzaho2034-64-90S05:39:00 [facility] Progress NoteREPORT#:[id number] REPORT STATUS: SignedDATE:06/05/22 TIME:1938 PATIENT: FRAN SANTAMRAIA UNIT #: [id number]#: [id number] [address] AGE: 71 SEX: M ATTEND: Cheikh Gutierrez [facility] AUTHOR: Yakov Kate MD * ALL [...] status Consultants: cardiology at 1945 RPT #: [id number] OF REPORT PNProcedure nljt6825-02-35J37:39:00L.VNNS56180377-8565FPPuxbf able for patient plyzBGZBYGOXWQICPX7144-51-45P09:45:37 [facility] 2022-06-05 14:40:00 [id number] 2VxhjNDxAxrGpZ3/9i1YIiqV0qnsv +PpC8ajIcN5RuK8Cj6Mu5UQju+Y5238-11-89B74:40:00 [facility])Cardiology Progress NoteREPORT#:[id number] REPORT STATUS: SignedDATE:06/05/22 TIME:1440 PATIENT: FRAN SANTAMARIA UNIT #: [id number]#: [id number] [address] [birth year] AGE: 71 SEX: M ATTEND: Cheikh Gutierrez [facility] AUTHOR: Sammie Johnson APRN * ALL [...] pain or SOB. MPOA/sister Ayla Ace phone [phone]. Subjective: Denies any chest pain or shortness [...] ill-looking male, appear confused, hx provided by [facility]. The patient has PMH of CVA, AFib [...] CAD with prior stentleaning toward Type II CA in the setting of possible TIA or [...] daily Stop amlodipine CHARLIEA/sister Ayla Ace phone [phone]. No further cardiac workup. Outpatient follow-up with [...] with any questions or concerns. Sammie Johnson [facility] BLAST[employer]ER Dr. Sarah Chavez MD-Attending CardiologistSWillapa [facility] at 1711 at 1000 RPT #: [id number] OF REPORT PRProgress hovq7195-93-40L11:40:00L.ARKQ46841364-4332ZYRsltq able for patient rulxLPBMSBYGBRMAKS9389-65-28L38:12:01 [facility] 2022-06-05 11:27:00 [id number] wx4WRcdgdvN7u5bCsAubEWIRwQFGW 159TUA5l1v7rkEOaMk86oB0M/YW1680-31-13P20:27:00 [facility] ([facility])Infectious Dis. Progress NoteREPORT#:[id number] REPORT STATUS: SignedDATE:06/05/22 TIME:1127 PATIENT: FRAN SANTAMARIA UNIT #: [id number]#: [id number] [address]: [address] AGE: 71 SEX: M ATTEND: Cheikh Gutierrez [facility] AUTHOR: Evelyn Jiménez MD * ALL [...] painExtremities: no clubbing, no cyanosisMusculoskeletal: no joint swellingNeuro/INSPECTOR RUBBER STAMP DIE: altered mental statusSkin: Multiple signs of scratching in the legs and armsPsychiatry: abnl judgment/insight Diagnosis, Assessment PlanFree Text A P:Laboratory Tests 06/03/22 0450:[Embedded Image Not Available] Imaging:MRI brain reviewed 05/30CXR reviewed 05/29 Assessment:1. Rash. UE/LE2. Encephalopathy. Plan:1. the clinical findings are less likely to be c/w scabies, possible bedbugs.2. Recommend infection control evaluation.3. Monitor CBC and temperature.4. wound careConsultants: cardiology at 1449 [facility] #: [id number] OF REPORT PRProgress jfxq9521-66-97Q48:27:00L.GHJU20176252-5009RQQubxa able for patient azmzJLNIXKMYPDTYAJ9635-38-21H89:50:20 [facility] 2022-06-05 10:27:00 [id number] nC71RUfZe3IeZyhu3CsxVkeF0CQge +OMWUJbsAjdr7chqisnC8UH+tjD8417-91-60K13:27:00 [facility]Hospital[facility] Progress NoteREPORT#:[id number] REPORT STATUS: SignedDATE:06/05/22 TIME:1027 PATIENT: FRAN SANTAMARIA UNIT #: [id number]#: [id number] [address]BMK: [address] AGE: 71 SEX: M ATTEND: Cheikh Gutierrez [facility] AUTHOR: Cheikh Gutierrez MD * ALL [...] capillary refill, no cyanosis, no edemaMusculoskeletal: normal inspectionNeuro/INSPECTOR RUBBER STAMP DIE: right hemiparesis, alert, oriented X 3, normal [...] significant acute abnormality 2. Elevated troponin-type II CA trended troponin x3 Monitor on the telemetry [...] placement is arranged at 1028 RPT #: [id number] OF REPORT PRProgress ames5513-36-75L65:27:00L.UYDZ76054634-1911ZCEjrar able for patient bfksNHWKJMDAIAPFBN5031-17-44V81:29:32 [facility] 2022-06-04 21:32:00 [id number] SiEwXA2JKyOhv0os2+hJRIGgbA9o4 zxjUhV6JErrDnoqB2l/vNDbYFsX3257-42-08Q40:32:00 [facility])Wound Care Consultation NoteREPORT#:[id number] REPORT STATUS: SignedDATE:06/04/22 TIME:2131 PATIENT: FRAN SANTAMARIA UNIT #: [id number]#: [id number] [facility] AGE: 71 SEX: M ATTEND: Cheikh [...] BID 08/08/18 05/31/22Strength: 5 MG TAB 2347 193 metFORMIN (GLUCOPHAGE) 850 MG PO TID 08/08/18 05/31/22Strength: 850 MG TAB 2348 1938 traZODone (DESYREL) 150 MG PO BEDTIME 08/08/18 05/31/22Strength: 150 MG TAB 2341938 OXYBUTYNIN (DITROPAN) 5 MG PO BID 08/08/18 05/31/22Strength: 5 MG TAB 2350 194 KETOCONAZOLE 1 APPLIC TOPICAL 08/08/18 05/31/22 (NIZORAL 2%) MOWEFR 2355 1938Strength: 120 ML SHAMPOO KETOCONAZOLE 1 APPLIC TOPICAL [...] BID 30 08/10/18 05/31/22 (FLONASE 50 MCG/ACT 922 1938 NASAL)Strength: 16 GM SPRAY FAMOTIDINE (PEPCID) 20 MG PO BID 30 08/10/18 05/31/22Strength: 20 MG TAB 0924 1940 METOPROLOL SUCC XL 25 MG PO DAILY 30 05/31/22 05/31/22 (TOPROL XL) 1043 1940Strength: 25 MG TAB.SR.24H Current Hospital Medications:Anti-Infective Agents Sig/Manuel Start time Last Medication Dose Route Stop Time Status Admin Ketoconazole 1 APPLIC DAILY 05/30 900 AC 06/02 (Nizoral 2% Shampoo TOPICAL 06/13 0859 0939 120 ML) Autonomic Drugs Sig/Manuel Start time Last Medication Dose Route Stop Time Status Admin Tamsulosin HCl 0.8 MG DAILY 05/30 900 AC 06/04 (FLOMAX) PO 06/29 08 0927 Blood Formation,Coagulation Sig/Manuel Start time Last Medication Dose Route Stop Time Status Admin Apixaban 5 MG Q12HR 05/31 2100 AC 06/04 (ELIQUIS) PO 06/14 Cardiovascular Drugs Sig/Manuel Start time Last Medication Dose Route Stop Time Status Admin Lisinopril 2.5 MG DAILY 06/01 900 AC 06/04 (ZESTRIL) PO 07/01 0859 0927 Metoprolol Succinate 25 MG DAILY 06/01 900 [...] 1133 AC 06/04 (ECOTRIN) PO 06/29 113 0927 Citalopram 10 MG DAILY 05/30 09 AC 06/04 Hydrobromide PO 06/29 0859 0927 (CeleXA) Trazodone HCl 150 MG BEDTIME PRN 05/30 050 AC 06/01 (DESYREL) PO 06/29 0459 0157 [...] See Dose AC HS 05/30 730 AC 06/04 (HUMALOG) Insts (1) SUBQ 06/29 0729 1731 Miscellaneous Therapeutic Agen Sig/Manuel Start time Last Medication Dose Route Stop Time Status Admin Finasteride 5 MG DAILY 05/30 900 AC 06/04 (PROSCAR) PO 06/29 045 0927 Smooth Muscle Relaxants Sig/Manuel Start time [...] 06/04 2028 O2 Delivery Room air 06/04 1630 24 hour I O ending at 0700: 06/04 0700 06/03 1900 Intake Total 500 Output Total Balance 500 Intake, Oral 500 General appearance: chronically ill appearingHead/Eyes: atraumaticNeck: no JVDCardiovascular: no rubRespiratory: symmetric expansionExtremities: no edemaMusculoskeletal: fair muscle toneNeuro/INSPECTOR RUBBER STAMP DIE: disorientedSkin: lesions (multiple abrasions) Wound AssessmentWound Assessment [...] Altered mental status at 2225 RPT #: [id number] OF REPORT OFNhiwshzldfrn2080-53-90F24:32:00L.YQQO72190201-9 281AVAvailable for patient xgxxSQGGGNECDMKJYT6640-24-32K80:25:34 [facility] 2022-06-04 14:23:00 [id number] 2pDmrgmGGkoEJu01v3zp1aGVpaEnK GrWIyFbxLwYDVAGPFvw2KPUmAgu8841-82-00E22:23:00 [facility] ([facility])Hospitalist Progress NoteREPORT#:[id number] REPORT STATUS: SignedDATE:06/04/22 TIME:1423 PATIENT: FRAN SANTAMARIA UNIT #: [id number]#: [id number] [address] AGE: 71 SEX: M ATTEND: Cheikh Gutierrez [facility] AUTHOR: Cheikh Gutierrez MD * ALL [...] capillary refill, no cyanosis, no edemaMusculoskeletal: normal inspectionNeuro/INSPECTOR RUBBER STAMP DIE: right hemiparesis, alert, oriented X 3, normal [...] (Auto) (20.5 - 51.1 %) 13.6 L [place] % (Auto) (1.7 - 9.3 %) 10.3 H Eos % (Auto) (0.0 - 6.0 %) 4.9 Baso % (Auto) (0.0 - 2.0 %) 1.0 Neut # (Auto) (1.8 - 7.6 K/mm3) 4.2 Lymph # (Auto) (0.6 - 3.0 K/mm3) 0.8 [place] # (Auto) (0.2 - 1.5 K/mm3) 0.6 [...] significant acute abnormality 2. Elevated troponin-type II CA trended troponin x3 Monitor on the telemetry [...] placement is arranged at 1424 RPT #: [id number] OF REPORT PRProgress lfif5045-45-48W31:23:00L.OUHJ18025010-8053AJQsgmw able for patient lugeFSAEUUYWEZGPZZ5797-53-65C55:25:01 [facility] 2022-06-04 09:10:00 [id number] tfGx9+pEc/PI0KKwCS0sAvhWee5nN pmvBqOQqdAZ095nsLCKNdujXvqe3894-79-98X65:10:00 [facility] ([facility])Cardiology Progress NoteREPORT#:[id number] REPORT STATUS: SignedDATE:06/04/22 TIME:09 PATIENT: FRAN SANTAMARIA UNIT #: [id number]#: [id number] [facility]X711-5GOS[facility] 50 AGE: 71 SEX: M ATTEND: Cheikh [facility]rez [facility] AUTHOR: Sheree Junior * ALL edits or [...] assessment: no calf tenderness, no edemaMusculoskeletal: decreased ROMNeuro/INSPECTOR RUBBER STAMP DIE: alert (confused)Skin: poor skin turgorPsychiatry: abnl judgment/insight, [...] ill-looking male, appear confused, hx provided by [facility]. The patient has PMH of CVA, AFib [...] CAD with prior stentleaning toward Type II CA in the setting of possible TIA or [...] lisinopril 2.5 mg daily no congestive symptoms CHARLIEA/sister Ayla Ace phone [phone]. No further cardiac workup. Outpatient follow-up with Dr. Chavez in 2 weeks. at 1104 at [address] [facility] #: [id number] OF REPORT PRProgress vxod4637-52-78Y67:10:00L.MSMA72247828-4253CCLmpfo able for patient wqipAXAHEEFTVUQKLG9127-25-54F14:05:06 [facility] 2022-06-03 19:16:00 [id number]+CDHig cx4Ut2/D/VDKsK46YW+clk/f3HmNI 3SfES84akhLAJmMpjcRLyfjQbPI9425-07-17S39:16:00 [facility] ([facility])Infect Disease Consult NoteREPORT#:[id number] REPORT STATUS: SignedDATE:06/03/22 TIME:1915 PATIENT: FRAN SANTAMARIA UNIT #: [id number]#: [id number] ROOM/BED: L.Q131-7YXK: 50 AGE: 71 SEX: M ATTEND: Cheikh [...] residentAllergies:Coded Allergies:No Known Allergies (05/29/22) 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 at 1107 RPT #: [id number] OF REPORT HOYesjdcneuwcs3716-28-42Z96:16:00L.VLTJ27136270-5 202AVAvailable for patient qxbkNUVFDGFBNREGIK9708-70-35Z39:07:46 [facility] 2022-06-03 11:15:00 [id number] QThB0Hn2nl4S0H0NHs4YTakGGUzpa mrxICqpRid93tEySovNzQ5gtyMJ5494-28-36B77:15:00 [facility]Neu[facility] Progress NoteREPORT#:[id number] REPORT STATUS: SignedDATE:06/03/22 TIME:1115 PATIENT: FRAN SANTAMARIA UNIT #: [id number]#: [id number] ROOM/BED: X766-0ZHC: 50 AGE: 71 SEX: M ATTEND: Cheikh [...] 06/03 1936 O2 Delivery Room air 06/03 0453 PATIENT WEIGHT: Weight (lb): Weight (oz): Weight [...] or swellingRespiratory: aerating well, no distressExtremities: moves allNeuro/INSPECTOR RUBBER STAMP DIE: alert, oriented X 4, normal speech, EOMINeuro [...] (Auto) (20.5 - 51.1 %) 13.4 L [place] % (Auto) (1.7 - 9.3 %) 9.3 Eos % (Auto) (0.0 - 6.0 %) 7.9 H Baso % (Auto) (0.0 - 2.0 %) 1.0 Neut # (Auto) (1.8 - 7.6 K/mm3) 5.2 Lymph # (Auto) (0.6 - 3.0 K/mm3) 1.0 Gl[place]ier # (Auto) (0.2 - 1.5 K/mm3) 0.7 [...] Supportive care.Consultants: cardiology at 2119 RPT #: [id number] OF REPORT PRProgress xxzl8457-44-64L92:15:00L.ROXP24394176-5803YOFqonn able for patient iqucOOAMUNIEWOEXCT9548-24-10C19:20:13 [facility] 2022-06-03 07:46:00 PE1084234210vSqZBOgO 5o4fiIIfokEDMqcVbk5uBA6prQ/XY 3QUa2eTdyzu5etZOz5MauLSRMyo2697-26-63Y61:46:00 [facility] ([facility])Hospitalist Progress NoteREPORT#:[id number] REPORT STATUS: SignedDATE:06/03/22 TIME:0746 PATIENT: FRAN SANTAMARIA UNIT #: [id number]#: [id number] [address] AGE: 71 SEX: M ATTEND: Cheikh Gutierrez [facility] AUTHOR: Anneliese Eden MD * ALL [...] capillary refill, no cyanosis, no edemaMusculoskeletal: normal inspectionNeuro/INSPECTOR RUBBER STAMP DIE: right hemiparesis, alert, oriented X 3, normal [...] (Auto) (20.5 - 51.1 %) 13.4 L [place] % (Auto) (1.7 - 9.3 %) 9.3 Eos % (Auto) (0.0 - 6.0 %) 7.9 H Baso % (Auto) (0.0 - 2.0 %) 1.0 Neut # (Auto) (1.8 - 7.6 K/mm3) 5.2 Lymph # (Auto) (0.6 - 3.0 K/mm3) 1.0 [place] # (Auto) (0.2 - 1.5 K/mm3) 0.7 [...] significant acute abnormality 2. Elevated troponin-type II CA trended troponin x3 Monitor on the telemetry [...] - Consulted CM at 0748 RPT #: [id number] OF REPORT PRProgress kosz5280-34-39I57:46:00L.PLTV82975481-6929PSSmkhb able for patient fwiaNHADYPQFJXJLNA6482-29-21P70:49:01 [facility] 2022-06-02 11:36:00 VZ7506956879Zx9Fcmql i6Q8oArbJBZz4F8Exn8HsubTVAvkU dn5Ghr/DWZfQMGtGx+IPVArVw1P9354-29-80U72:36:00 [facility])Hospitalist Progress NoteREPORT#:[id number] REPORT STATUS: SignedDATE:06/02/22 TIME:1136 PATIENT: FRAN SANTAMARIA UNIT #: [id number]#: [id number] [address] AGE: 71 SEX: M ATTEND: [...] capillary refill, no cyanosis, no edemaMusculoskeletal: normal inspectionNeuro/INSPECTOR RUBBER STAMP DIE: right hemiparesis, alert, oriented X 3, normal [...] abnormality neuro check 2. Elevated troponin-type II CA trend troponin x3, EKG x3 Monitor on [...] - Consult CM at 1138 RPT #: [id number] OF REPORT PRProgress tcty3591-02-43E94:36:00L.YTQS11020497-0570MYTfqjq able for patient gifaNSCJJJLSWRMMCY5738-28-93U68:38:49 [facility] 2022-06-02 10:42:00 [id number]+WuOiLNO 3fQB2ud+wTWgtzorXWNJayW9TKBTY mbplLboaaktPSNpzcCUPIgnJsMd0462-54-19W02:42:00 [facility] ([facility] Progress NoteREPORT#:[id number] REPORT STATUS: SignedDATE:06/02/22 TIME:104 PATIENT: FRAN SANTAMARIA UNIT #: [id number]#: [id number] [address] AGE: 71 SEX: M ATTEND: [...] or swellingRespiratory: aerating well, no distressExtremities: moves allNeuro/INSPECTOR RUBBER STAMP DIE: alert, oriented X 4, normal speech, EOMINeuro [...] Down: Left. GaitGait comments:Deferred ResultsFindings/Data:Laboratory Tests 06/02 1615 1123 0721 Chemistry POC Glucose (70 - 110 mg/dL) [...] (Auto) (20.5 - 51.1 %) 11.9 L [place] % (Auto) (1.7 - 9.3 %) 9.6 H Eos % (Auto) (0.0 - 6.0 %) 6.2 H Baso % (Auto) (0.0 - 2.0 %) 0.9 Neut # (Auto) (1.8 - 7.6 K/mm3) 4.6 Lymph # (Auto) (0.6 - 3.0 K/mm3) 0.8 [place] # (Auto) (0.2 - 1.5 K/mm3) 0.6 [...] fully oriented.Consultants: cardiology at 2212 RPT #: [id number] OF REPORT PRProgress rmgn7037-18-57V91:42:00L.IQYI19487604-0867IUYmbve able for patient kxmiJPVQLFVXWDIKOU5435-91-84T91:12:39 [facility] 2022-06-02 07:21:00 [id number] KF2qKWpBrg0z2pDYBrWpwc1eVaWLH C0GaYgqYQQYiXZYazLzpLX3bqS49242-97-46G34:21:98531 [address]001 [facility] [address] [place] [address] PATIENT NAME: FRAN SANTAMARIA ADMIT DATE: 05/30/22ACCOUNT NO: [id number] ROOM NO: [facility]10 AGE: 71 REPORT TYPE: 360 - QUERY RESPONSE DOCUMENT SEX: M ADMITTING PHYSICIAN: Cheikh Gutierrez MD ATTENDING PHYSICIAN: Cheikh Gutierrez MD Provider Query QUERY TEXT: Clarification Skin Integrity 360MD Query related questions should be directed to: [email or web address] Based on your clinical judgment, please further [...] Elva Valdez on 06/01/2022 12:38 PM at 0721 PATIENT NAME: FRAN SANTAMARIA noteL.TXV53281613-5209SGYlgngvumf for patient xmulLHHRGMZVPAJYKL1073-59-66P47:22:14 [facility] 2022-06-01 15:41:00 [id number] 9jppjJ1MNsLCh59lggAWJ/wO24Mjc pME8JfhV8pJh8ZNTGlH9DTx8Ikk7881-31-52V95:41:00 [facility] ([facility])Neurology Progress NoteREPORT#:[id number] REPORT STATUS: SignedDATE:06/01/22 TIME:1541 PATIENT: FRAN SANTAMARIA UNIT #: [id number]#: [id number] [facility] 50 AGE: 71 SEX: M ATTEND: Cheikh [...] (Auto) (20.5 - 51.1 %) 13.6 L [place] % (Auto) (1.7 - 9.3 %) 10.9 H Eos % (Auto) (0.0 - 6.0 %) 6.3 H Baso % (Auto) (0.0 - 2.0 %) 0.7 Neut # (Auto) (1.8 - 7.6 K/mm3) 4.0 Lymph # (Auto) (0.6 - 3.0 K/mm3) 0.8 [place] # (Auto) (0.2 - 1.5 K/mm3) 0.6 [...] the consult.05/31 stable; no evidence for new jcrook57/2 review of MRI shows moderate to large area of encephalomalacia in Left superior fromtalarea + what appears to be a meningioma just posterior to this. Concern is that of seizure with postictal confusion. Will add depakote and follow as outpatient in view of difficulty of obtainingEEG on the weekend. at 1914 RPT #: [id number] OF REPORT PRProgress gsko7419-07-17N33:41:00L.PCVR51571885-4103LGRjhia able for patient bawmUXRDMDZNOXOYFM0723-22-31R60:14:55 [facility] 2022-06-01 09:47:00 [id number] jmzhIf/dEEwSGgRP3+JGIw8f7aGB3 gLQtBSJRa7JWBy4O9L11JcLGkHe4873-63-81U64:47:00 [facility] ([facility])Hospitalist Progress NoteREPORT#:[id number] REPORT STATUS: SignedDATE:06/01/22 TIME:09 PATIENT: FRAN SANTAMARIA UNIT #: [id number]#: [id number] [address] AGE: 71 SEX: M ATTEND: Cheikh Gutierrez [facility] AUTHOR: Anneliese Eden MD * ALL [...] capillary refill, no cyanosis, no edemaMusculoskeletal: normal inspectionNeuro/INSPECTOR RUBBER STAMP DIE: right hemiparesis, alert, oriented X 3, normal [...] (Auto) (20.5 - 51.1 %) 13.6 L [place] % (Auto) (1.7 - 9.3 %) 10.9 H Eos % (Auto) (0.0 - 6.0 %) 6.3 H Baso % (Auto) (0.0 - 2.0 %) 0.7 Neut # (Auto) (1.8 - 7.6 K/mm3) 4.0 Lymph # (Auto) (0.6 - 3.0 K/mm3) 0.8 [place] # (Auto) (0.2 - 1.5 K/mm3) 0.6 [...] abnormality neuro check 2. Elevated troponin-type II CA trend troponin x3, EKG x3 Monitor on the telemetry pt is on Eliquis for A-fib 3. Hyponatremia unknown etiology Resolved with IVF, BS control, repeat bmp home med HCTZ 5. Atrial fibrillation continue Eliquis not on BB HR controlled 6. DM2 ACHS SSI VTE ppx: on EliquisFull code Work-up negative, symptoms resolved, back to baseline Discussed with Daughter and she's requested rehab with [facility] - Consult CM at 0949 RPT #: [id number] OF REPORT PRProgress zjnw2620-00-83Z82:47:00L.DWMW55065678-9750PIShose able for patient nzbwHXAUUQFBYXTMKJ7768-90-96V14:49:35 [facility] 2022-06-01 08:41:00 FF1164510374cCOX6ad2 c7x/k9P630XXaN/toBu1YE5GaebZN JK+WNAmotYBrPWV8s9R2gqhs7Hp9265-60-34K69:41:00 [facility] RegionalCard[facility] Progress NoteREPORT#:[id number] REPORT STATUS: SignedDATE:06/01/22 TIME:0841 PATIENT: FRAN SANTAMARIA UNIT #: [id number]#: [id number] [address] AGE: 71 SEX: M ATTEND: Cheikh Gutierrez [facility] AUTHOR: Sammie Johnson APRN * ALL [...] ill-looking male, appear confused, hx provided by [facility]. The patient has PMH of CVA, AFib on Eliquis, CAD with prior PCI who presented to ED with abnormal speech. Initial Head imaging negative for acute IC finding. Troponin came back elevated and cardiology consultation is requested. Troponin: 160.5->223.5. EKG showed atrial fibrillation with controlled rate, no acute ST/T wave changes. The patient denies chest pain or SOB. CHARLIEA/sister Ayla Ace phone [phone]. Subjective: Denies any chest pain or shortness [...] ill-looking male, appear confused, hx provided by [facility]. The patient has PMH of CVA, AFib [...] CAD with prior stentleaning toward Type II CA in the setting of possible TIA or [...] daily Stop amlodipine CHARLIEA/sister Ayla Ace phone [phone]. No further cardiac workup. Outpatient follow-up with [...] us with any questions or concerns. Sammie Stephie P. Abellar, [facility] [employer] Dr. Sarah Chavez MD-Attending CardiologistSWillapa Harbor Hospital Cardiology at 1120 at 1821 RPT #: [id number] OF REPORT PRProgress sdii2640-20-72C22:41:00L.GJSC91855332-6044PRLuwfu able for patient dlohNWTRSABRYWHRVS6494-65-27W06:21:07 [facility] 2022-05-31 15:33:00 [id number]+/v9E/H 02kruBSY/PgQxF7zIeG7zfVvUxcvO t5qA4VLZ4s3p0IWpr3aRASz2iyu4767-63-58K10:33:00 [facility] RegionalNeu[facility] Progress NoteREPORT#:[id number] REPORT STATUS: SignedDATE:05/31/22 TIME:1533 PATIENT: FRAN SANTAMARIA UNIT #: [id number]#: [id number] [address] AGE: 71 SEX: M ATTEND: Cheikh Gutierrez [facility] AUTHOR: Ramsey Marrero MD * ALL edits or amendments must be made on the electronic/computer document * SubjectivePatient reports:Yes: feeling better. Objective GeneralVS:Last Documented: Result Date Time Pulse Ox 97 05/31 120 B/P 107/62 05/31 1201 B/P Mean 76.7 05/31 120 O2 Delivery Room air 05/31 1201 Temp 36.3 05/31 120 Pulse 63 05/31 [...] (0.8 - 1.2 INR Unit) 1.12 PTT (Parke) (26 - 35 SECONDS) 84.9 H 37.0 [...] (Auto) (20.5 - 51.1 %) 14.4 L [place] % (Auto) (1.7 - 9.3 %) 9.1 Eos % (Auto) (0.0 - 6.0 %) 7.1 H Baso % (Auto) (0.0 - 2.0 %) 0.8 Neut # (Auto) (1.8 - 7.6 K/mm3) 4.0 Lymph # (Auto) (0.6 - 3.0 K/mm3) 0.9 [place] # (Auto) (0.2 - 1.5 K/mm3) 0.5 [...] for new stroke at 1744 RPT #: [id number] OF REPORT PRProgress ioon2561-61-08K05:33:00L.QMWE38996459-8847UMKgeqi able for patient fcspHQZRGXCPTKLUOZ8962-88-66Z63:45:07 [facility] 2022-05-31 14:55:00 BM5206113515YZa7te5o FaiBWHM5Tpr+W316Bo6cRQKmtZMha mmGyojzad8j+A2uLk9NV8Smt5vk6309-81-71I85:55:00 [facility] ([facility])Hospitalist Progress NoteREPORT#:[id number] REPORT STATUS: SignedDATE:05/31/22 TIME:1455 PATIENT: FRAN SANTAMARIA UNIT #: [id number]#: [id number] [facility] 50 AGE: 71 SEX: M ATTEND: Cheikh [...] 63 16 107/62 76.7 97 Room air 12/01 0723 98.2 58 15 101/52 68.1 97 [...] capillary refill, no cyanosis, no edemaMusculoskeletal: normal inspectionNeuro/INSPECTOR RUBBER STAMP DIE: right hemiparesis, alert, oriented X 3, normal [...] 1.12 PTT (Benny) (26 - 35 SECONDS) 84.9 H 37.0 H PT Patient/Control Mix (9.3 - 12.9 SECONDS) 12.8 Laboratory Tests 05/31 430 Hematology WBC (3.5 - 11.0 K/mm3) 5.9 [...] (Auto) (20.5 - 51.1 %) 14.4 L [place] % (Auto) (1.7 - 9.3 %) 9.1 Eos % (Auto) (0.0 - 6.0 %) 7.1 H Baso % (Auto) (0.0 - 2.0 %) 0.8 Neut # (Auto) (1.8 - 7.6 K/mm3) 4.0 Lymph # (Auto) (0.6 - 3.0 K/mm3) 0.9 [place] # (Auto) (0.2 - 1.5 K/mm3) 0.5 [...] abnormality neuro check 2. Elevated troponin-type II CA trend troponin x3, EKG x3 Monitor on [...] [facility] RPT #: [id number] OF REPORT PRProgress kvbs4616-22-29V23:55:00L.PWAO67666631-6393TQNyare able for patient etsmVRLTXEKXCJXFVP9982-99-52O63:58:26 [facility] 2022-05-31 10:46:00 [id number] e89c+/dcm1c9p6Y+stnf0YMv4DDyx Npb0EGd9/m7YRiDTvCZnGE0XyH40194-08-93E82:46:00 [facility])Discharge SummaryREPORT#:[id number] REPORT STATUS: SignedDATE:05/31/22 TIME:1046 PATIENT: FRAN SANTAMARIA UNIT #: [id number]#: [id number] [address] AGE: 71 SEX: M ATTEND: Cheikh Gutierrez [facility] AUTHOR: Anneliese Eden MD * ALL [...] abnormality neuro check 2. Elevated troponin-type II CA trend troponin x3, EKG x3 Monitor on [...] abnormality neuro check 2. Elevated troponin-type II CA trend troponin x3, EKG x3 Monitor on [...] normal heart soundsGI: softMusculoskeletal: full range of motionNeuro/INSPECTOR RUBBER STAMP DIE: alert, no motor deficits Discharge Instructions PCPPCP:PCP: [...] Eden MD Patient is going to personal senior living, stable condition, total time 32 minutes at 1238 Addendum 2: 06/11/22 1109 by Anneliese Eden MD Patient is stable to be discharged today at 1109 RPT #: [id number] OF REPORT DSDischarge ifoonlk4762-84-80R32:46:00L.TXCQ06102463-9590KLLk ailable for patient kjquNCICVXACWPFQUO7222-30-76N27:49:57 [facility] 2022-05-31 09:04:00 [id number] PrQTh5+l1NmvtHQi3PYDqBpgw/MJF 6SRQh+YG8xlQS0BrIcLQbEF82e59994-79-64Q44:04:00 [facility] ([facility]Card[facility] Progress NoteREPORT#:[id number] REPORT STATUS: SignedDATE:05/31/22 TIME:0904 PATIENT: FRAN SANTAMARIA UNIT #: [id number]#: [id number] ROOM/BED: T249-7RWW: 50 AGE: 71 SEX: M ATTEND: Cheikh Gutierrez [facility] AUTHOR: Sheree Junior * ALL edits or [...] 1945 36.6 86 16 155/73 100.6 97 11/30 1651 36.6 82 15 133/82 99 100 [...] assessment: no calf tenderness, no edemaMusculoskeletal: decreased ROMNeuro/INSPECTOR RUBBER STAMP DIE: alert (confused)Skin: poor skin turgorPsychiatry: abnl judgment/insight, normal mood ResultsFindings/Data:Laboratory Tests 05/31 05/30 05/30 05/30 0430 1730 1635 1155 Chemistry POC Glucose (70 - 110 mg/dL) 188 H 103 Troponin I High Sens (0 - 54 ng/L) 61.6 H 100.1 H Laboratory Tests 05/31 05/30 05/30 05/30 0701 2239 2239 1255 Coagulation INR (0.8 - 1.2 INR Unit) 1.12 PTT (Parke) (26 - 35 SECONDS) 84.9 H 37.0 [...] (Auto) (20.5 - 51.1 %) 14.4 L [place] % (Auto) (1.7 - 9.3 %) 9.1 Eos % (Auto) (0.0 - 6.0 %) 7.1 H Baso % (Auto) (0.0 - 2.0 %) 0.8 Neut # (Auto) (1.8 - 7.6 K/mm3) 4.0 Lymph # (Auto) (0.6 - 3.0 K/mm3) 0.9 [place] # (Auto) (0.2 - 1.5 K/mm3) 0.5 [...] ill-looking male, appear confused, hx provided by [facility]. The patient has PMH of CVA, AFib [...] CAD with prior stentleaning toward Type II CA in the setting of possible TIA or [...] daily Stop amlodipine MPOA/sister Ayla Ace phone [phone]. No further cardiac workup. Outpatient follow-up with Dr. Chavez in 2 weeks. at 1232 at 1821 RPT #: [id number] OF REPORT PRProgress ucbj7638-06-73Z63:04:00L.MQLB26228705-3728RVCykxr able for patient wlyeVTLLENZZVBCBIR5765-58-01G76:32:33 [facility] 2022-05-30 17:35:00 [id number] UckbVb/oGYqrdQs1qA562SOI0tYvE 1oZOLcxtkY3INARJH7i6lxdMMYF3109-15-41G48:35:20634 0-0215 [facility] [id number] [place] [id number] PATIENT NAME: FRAN SANTAMARIA ADMIT DATE: 05/30/22ACCOUNT NO: [id number] ROOM NO: [facility] AGE: 71 REPORT TYPE: eECHOCARDIOGRAM REPORT SEX: M ADMITTING PHYSICIAN: Cheikh Gutierrez MD ATTENDING PHYSICIAN: Cheikh Gutierrez MD *[facility]*[address] [place], [place] [address]Qtgrw Transthoracic Echocardiogram Patient: Fran Santamaria LStudy Date: 05/30/2022 BP: 131 / 85 [id number] 1950 Age: 71 Height: 74 in / 188 cmAccession#: [id number] Gender: M Weight: 73 lb / 33.2 kgBMI/BSA: 9.4 kg/m 2 / 1.27 m 2 *Ordering Physician: * Eddi Hoff *Interpreting Physician: * Sarah Chavez MD*Spray Gun Striper: * Alice Slaughter Indications: NSTEMI. Study data: Transthoracic echocardiogram. Procedure: Transthoracicechocardiography was performed. Image quality was adequate. Ahmwctlq2P, complete spectral Doppler, and color Doppler. Location: [...] at 1735 PATIENT NAME: FRAN SANTAMARIA :35:0 0L.[id number] for patient liybVIBZIVYDRLWWIO4180-26-34A31:36:02 [facility] 2022-05-30 12:01:00 [id number] bsFcvf1yK8vFHhqgm6GH21fR4j/Dy YeQan7y5rEAbcGL8SYo5FQmV4kD7664-91-64C07:01:00 [facility] ([facility])Neurology Consultation NoteREPORT#:[id number] REPORT STATUS: SignedDATE:05/30/22 TIME:1201 PATIENT: FRAN SANTAMARIA UNIT #: [id number]#: [id number] ROOM/BED: B811-1WDI: 50 AGE: 71 SEX: M ATTEND: Cheikh Gutierrez [facility] AUTHOR: Va Carroll LITHOGRAPHERS PRINTER * ALL edits or amendments must be [...] status. Patient is accompanied by his assistance stmllxw-ts-ixv. Reportedly sister stated she noticed a change [...] is to follow-up with neurologist at the [facility]. He has not beenseen by the neurologist there in a few years. Patient reports that the last timehe waled was 6 m5fhlar. History - Adult longitudinalPast medical history:Reports: Atrial fibrillation, Coronary artery disease, Hypertension, Ischemic stroke. Additional medical history:CVA, hypertension, atrial fibrillation, diabetes mellitus, coronary artery diseasePast surgical history:Reports: PCI. Family history:Reports: Diabetes. 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 Denies: dizziness, [...] or swellingRespiratory: aerating well, no distressExtremities: moves allNeuro/INSPECTOR RUBBER STAMP DIE: altered mental status, alert, normal speech, EOMINeuro [...] - 51.1 %) 14.0 L 7.6 L [place] % (Auto) (1.7 - 9.3 %) 12.2 H 9.4 H Eos % (Auto) (0.0 - 6.0 %) 9.6 H 1.2 Baso % (Auto) (0.0 - 2.0 %) 1.2 0.7 Neut # (Auto) (1.8 - 7.6 K/mm3) 4.1 6.9 Lymph # (Auto) (0.6 - 3.0 K/mm3) 0.9 0.7 [place] # (Auto) (0.2 - 1.5 K/mm3) 0.8 [...] 7.0 pH UNITS) 7.5 H Ur Specific [place] (1.005 - 1.030 SG) <=1.005 Urine Protein [...] consult. at 1532 at 1554 RPT #: [id number] OF REPORT TMBxegzbvapaae2778-55-68B09:01:00L.NCRX47471620-0 128AVAvailable for patient qbyzOBJVJEZWKGTHCR6531-75-94G18:33:28 [facility] 2022-05-30 10:51:00 [id number] YwH61mlGha6Cj7DRKERVLk6CEs1/f /BW4Z9fGQVq//62m+yyx0TKdVBW9376-89-40C06:51:00 [facility] RegionalClinical NoteREPORT#:[id number] REPORT STATUS: SignedDATE:05/30/22 TIME:1051 PATIENT: FRAN SANTAMARIA UNIT #: [id number]#: [id number] [address] AGE: 71 SEX: M ATTEND: Cheikh Gutierrez [facility] AUTHOR: Eddi Hoff MD * ALL edits or amendments must be made on the electronic/computer document * Clinical NoteNote: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/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.Patient has had multiple CVAs [...] is full code at 1053 RPT #: [id number] OF REPORT CLClinical mdyg9208-62-97N45:51:00L.FQIX92653727-8301FPLlops able for patient uhaqGJANUDSNTVEHIJ3464-07-39B06:54:02 [facility] 2022-05-30 10:15:00 [id number] amBFzvDMjEFUgIXKAHzza5zxoneEA 6hnG3PxjxEIdGq8HIkp/HZNA7pI6225-01-26Q48:15:00 [facility])Cardiology ConsultationREPORT#:[id number] REPORT STATUS: SignedDATE:05/30/22 TIME:1015 PATIENT: FRAN SANTAMARIA UNIT #: [id number]#: [id number] [facility] AGE: 71 SEX: M ATTEND: Cheikh Gutierrez [facility] AUTHOR: Sheree Junior * ALL edits or amendments must be made on the electronic/computer document * History of Present Illness HPIRequesting Clinician: Dr. Noriega for consult:Elevated troponinChief complaint:speech abnormalityPCP:PCP: No Primary or Family Physician HPI:71 YO male chronically ill-looking male, appear confused, hx provided by [facility]. The patient has PMH of CVA, AFib on Eliquis, CAD with prior PCI who presented to ED with abnormal speech. Initial Head imaging negative for acute IC finding. Troponin came back elevated and cardiology consultation is requested. Troponin: 160.5->223.5. EKG showed atrial fibrillation with controlled rate, no acute ST/T wave changes. The patient denies chest pain or SOB. MPOA/sister Ayla Ace phone [phone]. History - Adult longitudinalPast medical history:Reports: Atrial fibrillation, Coronary artery disease, Hypertension, Ischemic stroke. Additional medical history:CVA, hypertension, atrial fibrillation, diabetes mellitus, coronary artery diseasePast surgical history:Reports: PCI. Family history:Reports: Diabetes. 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 Objective GeneralVS/I O:Vital Signs: Date Time Temp [...] assessment: no calf tenderness, no edemaMusculoskeletal: decreased ROMNeuro/INSPECTOR RUBBER STAMP DIE: alertSkin: poor skin turgorPsychiatry: abnl judgment/insight, normal [...] - 51.1 %) 14.0 L 7.6 L [place] % (Auto) (1.7 - 9.3 %) 12.2 H 9.4 H Eos % (Auto) (0.0 - 6.0 %) 9.6 H 1.2 Baso % (Auto) (0.0 - 2.0 %) 1.2 0.7 Neut # (Auto) (1.8 - 7.6 K/mm3) 4.1 6.9 Lymph # (Auto) (0.6 - 3.0 K/mm3) 0.9 0.7 [place] # (Auto) (0.2 - 1.5 K/mm3) 0.8 [...] 7.0 pH UNITS) 7.5 H Ur Specific [place] (1.005 - 1.030 SG) <=1.005 Urine Protein [...] M.D.CAT SCAN - CT ANGIO NECK 05/29 140 Report Impression - Status: SIGNED Entered: 05/29/2022 1451 IMPRESSION: 1. Scattered atherosclerotic plaque with mild less than 50% narrowingat the left carotid bifurcation. No other area of significantstenosis.2. No intracranial large vessel occlusion.Impression By: Homer - Olegario Griffith M.D.CAT SCAN - CT ANGIO HEAD 05/298 Report Impression - Status: SIGNED Entered: 05/29/2022 [...] ill-looking male, appear confused, hx provided by [facility]. The patient has PMH of CVA, AFib [...] CAD with prior stentleaning toward Type II CA in the setting of possible TIA or [...] 6. Hypertensioncontinue BB MPOA/sister Ayla Ace phone [phone]. Appreciate the referral. at 1448 at 1821 RPT #: [id number] OF REPORT YWNwvxekzlkgwt4721-42-12R80:15:00L.PLAQ73004103-6 049AVAvailable for patient hcnzIMXDLEOEDVNCLY1365-85-64B82:48:41 [facility] 2022-05-30 02:35:00 [id number] Naj3f29nFg6J1fqYidwmvgoxrOaoQ dLDtcPxHfpLOF4Or5HBz4bySQ2T7514-47-98Y42:35:00 [facility] ([facility])Hospitalist History PhysicalREPORT#:[id number] REPORT STATUS: SignedDATE:05/30/22 TIME:0235 PATIENT: FRAN SANTAMARIA UNIT #: [id number]#: [id number] [facility] 50 AGE: 71 SEX: M ATTEND: Cheikh Gutierrez [facility] AUTHOR: Lucas Cueto * ALL edits [...] PO DAILY 08/08/18Strength: 10 MG TAB 234 HYDROCHLOROTHIAZIDE 12.5 MG PO DAILY 08/08/18 (HCTZ) 2344Strength: 12.5 MG CAP SAXAGLIPTIN (ONGLYZA) 5 MG PO DAILY 08/08/18Strength: 5 MG TAB 2344 ASCORBIC ACID (VITAMIN C) 500 MG PO DAILY 08/08/18Strength: 500 MG TAB 2345 ATORVASTATIN (LIPITOR) 40 MG PO BEDTIME 08/08/18Strength: 40 MG TAB 234 FINASTERIDE (PROSCAR) 08/08/18Strength: 5 MG TAB 234 [...] 1 APPLIC TOPICAL 08/08/18 (NIZORAL 2%) MOWEFR 2354Strength: 120 ML SHAMPOO KETOCONAZOLE 1 APPLIC TOPICAL [...] Allergies:Coded Allergies:No Known Allergies (05/29/22) 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 Left frontal encephalomalacia unchanged. Impression By: oTlu Silverman M.D.CAT SCAN - CT ANGIO NECK [...] tPA or neuro intervention h/o massive CVA y6ansjt head CT/CTA ruled out neuro vitals Hemoglobin [...] drip. at 0513 at 1405 RPT #: [id number] OF REPORT HPHistory and physical hsoobtwelwv1309-51-98O94:35:00L.VLEG64964725-2548 AVAvailable for patient scdvWIXUGHLYVDXVCZ6523-47-79H68:07:20 [facility] 2022-05-29 13:59:00 [id number] cgH1yov5gD05L8MmPo7VDy29uJTX4 uluz6YmJcusGaS8DAhi65b10jKG2109-76-83D70:59:00 [facility] ([facility])EMERGENCY PROVIDER REPORTREPORT#:[id number] REPORT STATUS: SignedDATE:05/29/22 TIME:1359 PATIENT: FRAN SANTAMARIA Farheen UNIT #: [id number]#: [id number] [facility]77[facility]8DYH: 50 AGE: 71 SEX: M PCP PHYS: [...] spoke with the patient's sister (Clarice Ace [phone]). The patient waslast seen at his normal [...] XL) 25 MG PO DAILY #30 TAB Iván Magaña 05/29/222036:Physical Exam Vital SignsVital SignsFirst Documented: Result [...] (Auto) (20.5 - 51.1 %) 7.6 L [place] % (Auto) (1.7 - 9.3 %) 9.4 H Eos % (Auto) (0.0 - 6.0 %) 1.2 Baso % (Auto) (0.0 - 2.0 %) 0.7 Neut # (Auto) (1.8 - 7.6 K/mm3) 6.9 Lymph # (Auto) (0.6 - 3.0 K/mm3) 0.7 [place] # (Auto) (0.2 - 1.5 K/mm3) 0.8 [...] 7.0 pH UNITS) 7.5 H Ur Specific [place] (1.005 - 1.030 SG) <=1.005 Urine Protein [...] plan at 0139 at 0242 RPT #: [id number] OF REPORTEDEmernorthwest medical center department anabpm8213-28-13N01:59:00L.MOGA72504397-7016WYZkj ilable for patient ivokXNMRQVUDAPKWWR8040-22-01W42:39:40 [facility] 2018-08-10 10:22:00 DDrnezfoheo0633132w5 36kHkGHcJCFxPNkyztRqASVS6ykJh 0m/l9qZmPtnOTpfMzVk7kpMnN2VP6Wcos4238-53-73W44:22 :00 [facility] RegionalNeu[facility] Progress NoteREPORT#:[id number] REPORT STATUS: SignedDATE:08/10/18 TIME:1022 PATIENT: FRAN SANTAMARIA UNIT #: [id number]#: [id number] [address] AGE: 67 SEX: M ATTEND: [...] (Auto) (20.5 - 51.1 %) 14.0 L [place] % (Auto) (1.7 - 9.3 %) 11.1 H Eos % (Auto) (0.0 - 6.0 %) 8.9 H Baso % (Auto) (0.0 - 2.0 %) 0.5 Neut # (Auto) (1.8 - 7.6 K/mm3) 4.27 Lymph # (Auto) (0.6 - 3.0 K/mm3) 0.9 [place] # (Auto) (0.2 - 1.5 K/mm3) 0.7 [...] getting discharged today. at 1024 RPT #: [id number] OF REPORT PRProgress Ehyx6665-26-64V39:22:00L.XEVH77453785-6754WLKrbnj able for patient mohmKVBMJMJQKLHURA0752-00-99Y18:24:41 [facility] 2018-08-10 09:17:00 HKxnnuwglqz1922642xe 6cQUCc/+M/On7axMwhoTlyOonM58L PTmqqalnG+OwCcbV/lsdY0O1yLSbEOGow8331-30-79T54:17 :00 [facility] ([facility])Discharge SummaryREPORT#:[id number] REPORT STATUS: SignedDATE:08/10/18 TIME:916 PATIENT: FRAN SANTAMARIA UNIT #: [id number]#: [id number] [address] AGE: 67 SEX: M ATTEND: Cheikh Gutierrez AUTHOR: Jaydon Lester BLASTING CONTRACT MINER * ALL edits or amendments must be [...] of DVTMusculoskeletal: full range of motion, normal inspectionNeuro/INSPECTOR RUBBER STAMP DIE: alert, oriented X 3, normal gait, normal speech, no motor deficits, no sensory deficitsGlasgow Coma Score: Timothy Coma Score: Response Value [place] eyes: eyes open spontaneously 4 [place] speech: oriented 5 Timothy motor: obeys commands [...] (Auto) (20.5 - 51.1 %) 14.0 L [place] % (Auto) (1.7 - 9.3 %) 11.1 H Eos % (Auto) (0.0 - 6.0 %) 8.9 H Baso % (Auto) (0.0 - 2.0 %) 0.5 Neut # (Auto) (1.8 - 7.6 K/mm3) 4.27 Lymph # (Auto) (0.6 - 3.0 0.9K/mm3) [place] # (Auto) (0.2 - 1.5 K/mm3) 0.7 [...] Viera M.D. Results: labs reviewed at 0927 RPT #: [id number] OF REPORT DSDischarge vahieyp3770-15-55J61:17:00L.TQBS52723455-4109PTDo ailable for patient gvdvHEBYZMCAYAINRP3471-34-90C22:27:20 [facility] 2018-08-10 09:17:00 IKujzmywxmn12270971A isJRvEyYxnNRZ5MMS4FoC36GsvszN eGu2/6FlCvwNsNTH6Rsazn2aEcn4pTc/85027-68-43Z73:17 :00 [facility] RegionalDischarge SummaryREPORT#:[id number] REPORT STATUS: SignedDATE:08/10/18 TIME:916 PATIENT: FRAN SANTAMARIA UNIT #: [id number]#: [id number] [address] [birth year] AGE: 67 SEX: M ATTEND: Cheikh Gutierrez MDADM AUTHOR: Jaydon Lester NP * ALL edits or amendments must be made on the electronic/computer document * Jaydon Lester NP 08/10/18 0917:PCP PCPPCP:PCP: DOES_NOT KNOW Discharge to: home with [facility] health [facility] General InformationDate of admission:Observation Start Date: 08/08/18Date [...] Result Date Time Pulse Ox 93 08/10 0704 B/P 133/73 08/10 0704 B/P Mean 0.0 [...] of DVTMusculoskeletal: full range of motion, normal inspectionNeuro/INSPECTOR RUBBER STAMP DIE: alert, oriented X 3, normal gait, normal speech, no motor deficits, no sensory deficitsGlasgow Coma Score: [place] Coma Score: Response Value Timothy eyes: eyes [...] (Auto) (20.5 - 51.1 %) 14.0 L [place] % (Auto) (1.7 - 9.3 %) 11.1 H Eos % (Auto) (0.0 - 6.0 %) 8.9 H Baso % (Auto) (0.0 - 2.0 %) 0.5 Neut # (Auto) (1.8 - 7.6 K/mm3) 4.27 Lymph # (Auto) (0.6 - 3.0 0.9K/mm3) [place] # (Auto) (0.2 - 1.5 K/mm3) 0.7 [...] reviewed at 0927 at 1656 RPT #: [id number] OF REPORT DSDischarge rtuncgv1162-85-74O25:17:00L.LHGS42930482-0775ERPp ailable for patient vzhnORBFXRFAGMDMOV2943-42-92Z99:56:07 [facility] 2018-08-09 12:06:00 UImrcdmtsdx4485915On 7603DaKb+HFCVz0bLDAmDD3nxHtOK gHGr9B1pUOPjJiBpA/hxMB+I2BiguHSQf3239-63-15G28:06 :00 [facility] ([facility])Neurology Consultation NoteREPORT#:[id number] REPORT STATUS: SignedDATE:08/09/18 TIME:1206 PATIENT: FRAN SANTAMARIA UNIT #: [id number]#: [id number] [facility]DOB: [birth year] AGE: 67 SEX: M ATTEND: Cheikh [facility]rez [facility] AUTHOR: Romy Marie MD * ALL edits [...] Result Date Time Pulse Ox 95 08/09 0735 B/P 130/72 08/09 0735 B/P Mean 91.1 08/09 0735 Temp 36.9 08/09 0735 Pulse 61 08/09 0735 Resp 18 08/09 0735 O2 Delivery Room [...] a walker ResultsFindings/Data:Laboratory Tests 08/09 08/08 08/08 5404 9910 2008 Chemistry Sodium (134 - 147 [...] (Auto) (20.5 - 51.1 %) 4.8 L [place] % (Auto) (1.7 - 9.3 %) 8.6 Eos % (Auto) (0.0 - 6.0 %) 1.0 Baso % (Auto) (0.0 - 2.0 %) 0.3 Neut # (Auto) (1.8 - 7.6 K/mm3) 10.02 H Lymph # (Auto) (0.6 - 3.0 K/mm3) 0.6 [place] # (Auto) (0.2 - 1.5 K/mm3) 1.0 [...] for the consult. at 1758 RPT #: [id number] OF REPORT BTHasriucwvkwv9155-54-93M52:06:00L.NUQS84664119-7 069AVAvailable for patient ukdyYTPPNBBFROPFSJ3359-37-69S55:58:23 [facility] 2018-08-09 09:35:00 BKesypjnnud1513000WK wIJLQSYmayL31UvKEDHx2H4ESP1Ol ZOAFQzREUU/fkBgSz+O/o76xZjpuJ7DXc0651-77-69M93:35 :00 [facility] ([facility])History Physical - AdultREPORT#:[id number] REPORT STATUS: SignedDATE:08/09/18 TIME:934 PATIENT: FRAN SANTAMARIA UNIT #: [id number]#: [id number] ROOM/BED: [facility]-1DOB: [birth year] AGE: 67 SEX: M ATTEND: Cheikh Gutierrez [facility] AUTHOR: Cheikh Gutierrez MD * ALL [...] range of motion, no peripheral edemaMusculoskeletal: decreased ROMNeuro/INSPECTOR RUBBER STAMP DIE: alertSkin: dry, no rashLymphatic: no lymphadenopathy ResultsFindings/Data:Laboratory Tests: 08/09 Chemistry Sodium (134 - 147 [...] (Auto) (20.5 - 51.1 %) 4.8 L [place] % (Auto) (1.7 - 9.3 %) 8.6 Eos % (Auto) (0.0 - 6.0 %) 1.0 Baso % (Auto) (0.0 - 2.0 %) 0.3 Neut # (Auto) (1.8 - 7.6 K/mm3) 10.02 H Lymph # (Auto) (0.6 - 3.0 K/mm3) 0.6 [place] # (Auto) (0.2 - 1.5 K/mm3) 1.0 [...] directive: Full code at 1809 RPT #: [id number] OF REPORT HPHistory and physical elxczwafadd5280-97-81S20:35:00L.FVXR55450371-1265 AVAvailable for patient rfazUXEYXATNDMPEDR9694-71-32Q97:09:03 [facility] 2018-08-08 19:56:00 XYqwjkliteq6845867Cz 0tXAswHI5YuTRSUedLTXqW4nIUMZD /BT888h4ir0noClaWBDEq8U4oYKrw/4tO3336-15-03E30:56 :00 [facility])EMERGENCY PROVIDER REPORTREPORT#:[id number] REPORT STATUS: SignedDATE:08/08/18 TIME:1955 PATIENT: FRAN SANTAMARIA UNIT #: [id number]#: [id number] [address] AGE: 67 SEX: M PCP [...] prior) Free Text HPI NotesFree Text HPI Gyiwg05jq WM with PMH of HTN, DM, AFib, [...] (Auto) (20.5 - 51.1 %) 4.8 L [place] % (Auto) (1.7 - 9.3 %) 8.6 Eos % (Auto) (0.0 - 6.0 %) 1.0 Baso % (Auto) (0.0 - 2.0 %) 0.3 Neut # (Auto) (1.8 - 7.6 K/mm3) 10.02 H Lymph # (Auto) (0.6 - 3.0 K/mm3) 0.6 [place] # (Auto) (0.2 - 1.5 K/mm3) 1.0 [...] 97 On: Room air Interpretation Interpreted by ny Time 1928 ECG #1 InterpretationECG Documented in MUSE YesDate 08/08/18Time 1935Interpreted by ED physicianNL ECG Interpretation Normal rate, Normal sinus rhythm, No STEMI, Normal axisRate 88Conduction/Mayer RBBB - incomplete Portions of this section [...] 08/08 2200 AC Acetaminophen PO 08/18 2158 Hydrocodone Bitart/ 1 TAB Q4H PRN PRN / 2200 AC Acetaminophen PO 08/18 2158 Acetaminophen 650 MG X1ED STA 08/08 2125 DC 08/08 PO 08/08 Gastrointestinal Drugs Sig/Manuel Start time Last Medication Dose Route Stop Time Status Admin Docusate Sodium 100 MG Q12H PRN PRN 08/08 2200 AC PO 09/07 2158 Ondansetron HCl 4 MG Q4H PRN PRN 08/08 2200 AC IV 09/07 215 Respiratory Tract Agents Sig/Manuel Start time Last [...] Ox 97 08/08 1927 B/P 141/65 08/08 192 B/P Mean 90 08/08 1927 O2 Delivery [...] Pruett on 08/08/18 at 2144 at 2336 [facility] #: [id number] OF REPORTFormerly [facility] department ygptny2485-20-76V89:56:00L.ICIT94011142-7958NHFbq ilable for patient lkukYNBEGCVFRCHFLO9070-41-42B78:36:23 [facility] 2018-08-08 19:30:00 IAdbgfmekfn8512634ZI 49n9IlcneVLlwpza8ctdk9TpxErKH ky3LClOREeppiiLvlqpGlelao8LiwVok3969-73-16T14:30 :[id number] [facility] [id number] [place] [address] PATIENT NAME: FRAN SANTAMARIA ADMIT DATE: 08/08/18ACCOUNT NO: [id number] ROOM NO: [facility] AGE: 67 REPORT TYPE: eELECTROCARDIOGRAM SEX: M ADMITTING PHYSICIAN: Cheikh Gutierrez MD ATTENDING PHYSICIAN: Cheikh Gutierrez MD Order:[id number] Reason : (Not Selected) Test Date/Time Stamp:SatAug [...] Self Referred Confirmed by:AMANDA BONNER MD at 7971 PATIENT NAME: FRAN SANTAMARIA .[id number] AVAvailable for patient ucfeLZIVWXGWMFWSZP7835-03-29X71:34:31 [facility]
[2023-08-02 17:35] LABS: Absolute Lymphocytes (CBC) 0.6 K/uL (0.7-4.9); Hematocrit 27.5 % (39.6-49.0); Lymphocytes % 9.6 % (15.3-44.8); MCV 72.3 fL (80-100); MPV 7.2 fL (7.6-11.3); Platelets 223 thou/uL (152-406)
[2023-08-02 17:53] LABS: Potassium 3.6 mEq/L (3.5-5.1); Troponin High Sensitivity 32.6 pg/mL (<58.9)
--- NOTE | 2023-08-02 18:11 | RAD REPORT ---
EXAM DESCRIPTION: Bonnie Single View08/02/2023 5:37 pm CLINICAL HISTORY: sob COMPARISON: July 28, 2023 FINDINGS: Moderate bilateral pulmonary opacities Heart is moderately enlarged Small to moderate pleural effusions IMPRESSION: Moderate bilateral pulmonary opacities may represent pulmonary edema or pneumonia
--- NOTE | 2023-08-02 19:03 | RAD REPORT ---
EXAM DESCRIPTION: CT - Thorax Wo Con - 08/02/2023 6:38 pm CLINICAL HISTORY: sob COMPARISON: July 2023 TECHNIQUE: Computed axial tomography of the chest was obtained. Contrast was not requested. All CT scans are performed using dose optimization technique as appropriate and may include automated exposure control or mA/KV adjustment according to patient size. FINDINGS: The evaluation of mediastinum, danelle and vessels is limited secondary to lack of IV contras t administration. The lungs are clear. No mediastinal or hilar lymphadenopathy is seen. Moderate to large right and moderate left pleural effusions have increased in size Mild bilateral lower lobe atelectasis. Additional mild bilateral pulmonary opacities. Centrilobular e mphysema IMPRESSION: Moderate to large right and moderate left pleural effusions Mild bilateral pulmonary opacities may represent pulmonary edema or pneumonia L
--- NOTE | 2023-08-02 19:23 | EDPHYS ---
Physician Documentation [facility] Name: Luis Antonio Santamaria Age: 72 yrs Sex: Male : 1950 Arrival Date: 08/02/2023 Time: 16:51 Bed 18 Private MD: ED Physician Ubaldo Dominguez HPI: 08/02 17:24 This 72 yrs old Male presents to ER via EMS with complaints of anasarca. sb4 18:03 Patient was discharged from this facility this morning after undergoing treatment of sb4 hyponatremia and GI bleed. [facility] to his [facility] and they were concerned that he looked much more swollen than when he originally left. They state that he has fluid around his face and on his legs. Patient has no complaints at this time. He denies any shortness of breath, any perceived swelling, no pain. Historical: - PMHx: 16:55 BRAIN TUMOR; CVA x4; Hyperlipidemia; Hypertension; hyponatremia; Myocardial infarction; aa5 PVD; - Immunization history:: Adult Immunizations up to date. - Social history:: Smoking status: Patient denies any tobacco usage or history of. ROS: 18:03 Constitutional: Negative for fever, chills, and weight loss, sb4 Exam: 18:03 Constitutional: This is a well developed, well nourished patient who is awake, alert, sb4 and in no acute distress. Head/Face: Normocephalic, atraumatic. Eyes: Extra-ocular motions intact. Periorbital areas with no swelling, redness, or edema. ENT: Mucous membranes moist. Cardiovascular: Regular rate and rhythm with a normal S1 and S2. Abdomen/GI: Soft, non-tender, no distension. Skin: Warm, dry with normal turgor. Normal color with no rashes, no lesions, and no evidence of cellulitis. MS/ Extremity: Pulses equal, no cyanosis. Neurovascular intact. Full, normal range of motion. Neuro: Awake and alert, GCS 15. Sensory grossly intact. 19:45 Respiratory: the patient does not display signs of respiratory distress, Respirations: sb4 normal, Breath sounds: rhonchi, that are moderate, are located in both bases, Vital Signs: 16:54 BP 132 / 70; Pulse 69; Resp 16 S; Temp 98.6(O); Pulse Ox 95% on R/A; aa5 19:35 BP 152 / 82; Pulse 77; Resp 14; Pulse Ox 95% on R/A; Pain 0/10; tm6 20:30 BP 137 / 66; Pulse 71; Pulse Ox 100% on R/A; tm6 21:39 BP 142 / 122; Pulse 72; Pulse Ox 97% on R/A; tm6 22:48 BP 126 / 68; Pulse 74; Pulse Ox 98% on R/A; tm6 23:45 BP 127 / 62; Pulse 75; Pulse Ox 97% on R/A; tm6 23:45 Pain 0/10; tm6 02/03 01:29 BP 99 / 50; Pulse 75; Pulse Ox 98% on R/A; Pain 0/10; tm6 01:31 Weight 74.84 kg; Height 6 ft. 2 in. ; tm6 03:20 BP 102 / 58; Pulse 74; Resp 18; Pulse Ox 99% on R/A; Pain 0/10; tm6 01:31 Body Mass Index 21.18 (74.84 kg, 187.96 cm) tm6 19:35 Pain Scale: Adult tm6 23:45 Pain Scale: Adult tm6 02/ 01:29 Pain Scale: Adult tm6 03:20 Pain Scale: Adult tm6 MDM: 08/02 16:57 Patient medically screened. sb4 19:20 Data reviewed: vital signs, nurses notes, lab test result(s), EKG, radiologic studies, sb4 I have discussed the patient's presentation/case with the attending Emergency Department Physician; and as a result, I will. Consideration of Admission/Observation Patient was admitted/placed on observation. Counseling: I had a detailed discussion with the patient and/or guardian regarding the historical points, exam findings, and any diagnostic results supporting the discharge/admit diagnosis, lab results, radiology results, the need to transfer to another facility, patient request. ED course: DC patient, requesting transfer to DC. 19:56 ED course: patient's daughter, Brenna Ace, can be reached at [phone]. patient's sb4 son in law, Carlyle Ace, can be reached at [phone]. 08/02 17:20 Order name: Basic Metabolic Panel; Complete Time: 17:56 sb4 08/02 17:20 Order name: CBC with Diff; Complete Time: 17:42 sb4 08/02 17:20 Order name: NT PRO-BNP; Complete Time: 17:56 sb4 08/02 17:20 Order name: Troponin HS; Complete Time: 17:56 sb4 08/02 17:02 Order name: Chest Single View XRAY; Complete Time: 18:13 sb4 08/02 18:17 Order name: Chest Wo Con CT; Complete Time: 19:05 sb4 08/02 17:20 Order name: Cardiac monitoring; Complete Time: 17:37 sb4 08/02 17:20 Order name: IV Saline Lock; Complete Time: 17:37 sb4 08/02 17:20 Order name: Labs collected and sent; Complete Time: 17:37 sb4 08/02 17:20 Order name: O2 Per Protocol; Complete Time: 17:37 sb4 08/02 17:20 Order name: O2 Sat Monitoring; Complete Time: 17:37 sb4 Administered Medications: 23:59 Drug: doxepin (Sinequan) 100 mg PO once Route: PO; tm6 23:59 Drug: eszopiclone 3 mg PO once Route: PO; tm6 Disposition: 18:28 I was immediately available on-site in the Emergency Department for consultation in the ms3 care of the patient. Disposition Summary: 08/02/23 19:21 Transfer Ordered Notes: Transfer Location: [facility] sb4 Reason: Higher level of care sb4 Condition: Fair sb4 Problem: new sb4 Symptoms: are unchanged sb4 Accepting Physician: hospitalist(08/03/23 03:27) tm6 Diagnosis - Unspecified combined systolic (congestive) and diastolic (congestive) heart failure sb4 Forms: - Medication Reconciliation Form sb4 - SBAR form sb4 Signatures: Dispatcher [employer] EDMS Skylar Donaldson RN RN aa5 Ubaldo Dominguez DO DO ms3 Jeny Joel PA-C PALior sb4 Stephanie Osorio cp4 Janis Clarke RN RN tm6 Corrections: (The following items were deleted from the chart) 18:57 18:03 Constitutional: This is a well developed, well nourished patient who is awake, sb4 alert, and in no acute distress. Head/Face: Normocephalic, atraumatic. Eyes: Extra-ocular motions intact. Periorbital areas with no swelling, redness, or edema. ENT: Mucous membranes moist. Cardiovascular: Regular rate and rhythm with a normal S1 and S2. Respiratory: Lungs have equal breath sounds bilaterally, clear to auscultation and percussion. No rales, rhonchi or wheezes noted. No increased work of breathing, no retractions or nasal flaring. Abdomen/GI: Soft, non-tender, no distension. Skin: Warm, dry with normal turgor. Normal color with no rashes, no lesions, and no evidence of cellulitis. MS/ Extremity: Pulses equal, no cyanosis. Neurovascular intact. Full, normal range of motion. Neuro: Awake and alert, GCS 15, oriented to person, place, time, and situation. Motor strength 5/5 in all extremities. Sensory grossly intact. sb4 19:02 18:44 [facility] [place]. Order ordered. sb4 cp4 19:46 18:03 Constitutional: This is a well developed, well nourished patient who is awake, sb4 alert, and in no acute distress. Head/Face: Normocephalic, atraumatic. Eyes: Extra-ocular motions intact. Periorbital areas with no swelling, redness, or edema. ENT: Mucous membranes moist. Cardiovascular: Regular rate and rhythm with a normal S1 and S2. Respiratory: Lungs have equal breath sounds bilaterally, clear to auscultation and percussion. No rales, rhonchi or wheezes noted. No increased work of breathing, no retractions or nasal flaring. Abdomen/GI: Soft, non-tender, no distension. Skin: Warm, dry with normal turgor. Normal color with no rashes, no lesions, and no evidence of cellulitis. MS/ Extremity: Pulses equal, no cyanosis. Neurovascular intact. Full, normal range of motion. Neuro: Awake and alert, GCS 15. Sensory grossly intact. sb4 20:45 18:03 Patient was discharged from this facility this morning after undergoing treatment sb4 of pneumonia and GI bleed. He returned to his [facility] and they were concerned that he looked much more swollen than when he originally left. They state that he has fluid around his face and on his legs. Patient has no complaints at this time. He denies any shortness of breath, any perceived swelling, no pain. sb4 08/03 03:27 02 19:21 hospitalist sb4 tm6
--- NOTE | 2023-08-02 19:23 | ER ---
Nurse's Notes [facility] Name: Luis Antonio Santamaria Age: 72 yrs Sex: Male : 1950 Arrival Date: 08/02/2023 Time: 16:51 Bed 18 Private MD: Diagnosis: Unspecified combined systolic (congestive) and diastolic (congestive) heart failure Presentation: 08/02 16:54 Chief complaint: EMS states: was recently admitted with Pneumonia and was discharged aa5 today, EMS states family reports pt "looks different and swollen all over". Coronavirus screen: At this time, the client does not indicate any symptoms associated with coronavirus-19. Ebola Screen: Patient denies travel to an Ebola-affected area in the 21 days before illness onset. Initial Sepsis Screen: Does the patient meet any 2 criteria? No. Patient's initial sepsis screen is negative. Does the patient have a suspected source of infection? No. Patient's initial sepsis screen is negative. Risk Assessment: Do you want to hurt yourself or someone else? Patient reports no desire to harm self or others. Onset of symptoms was 2023. 16:54 Acuity: DYLON 3 aa5 16:54 Method Of Arrival: EMS: [facility] aa5 Historical: - PMHx: 16:55 BRAIN TUMOR; CVA x4; Hyperlipidemia; Hypertension; hyponatremia; Myocardial infarction; aa5 PVD; - Immunization history:: Adult Immunizations up to date. - Social history:: Smoking status: Patient denies any tobacco usage or history of. Screenin:36 [facility] ED Fall Risk Assessment (Adult) History of falling in the last 3 months, cp4 including since admission No falls in past 3 months (0 pts) Confusion or Disorientation No (0 pts) Intoxicated or Sedated No (0 pts) Impaired Gait No (0 pts) Mobility Assist Device Used No (0 pt) Altered Elimination No (0 pt) Score/Fall Risk Level 0 - 2 = Low Risk Oriented to surroundings, Maintained a safe environment, Educated pt \\T\\ family on fall prevention, incl call for assistance when getting out of bed, Assessed \\T\\ reinforced patient's understanding of fall precautions, Provided non-skid footwear, Hourly rounding (assess needs \\T\\ fall precautionary measures) done. Abuse screen: Denies threats or abuse. Nutritional screening: No deficits noted. Tuberculosis screening: No symptoms or risk factors identified. Assessment: 17:36 General: Appears in no apparent distress. Behavior is calm, cooperative, appropriate cp4 for age. Pain: Denies pain. 19:35 Reassessment: Patient appears in no apparent distress at this time. No changes from tm6 previously documented assessment. Patient and/or family updated on plan of care and expected duration. Pain level reassessed. Patient is alert, oriented x 3, equal unlabored respirations, skin warm/dry/pink. 21:38 Reassessment: Patient appears in no apparent distress at this time. No changes from tm6 previously documented assessment. Patient and/or family updated on plan of care and expected duration. Pain level reassessed. Patient is alert, oriented x 3, equal unlabored respirations, skin warm/dry/pink. 22:48 Reassessment: Patient appears in no apparent distress at this time. No changes from tm6 previously documented assessment. Patient and/or family updated on plan of care and expected duration. Pain level reassessed. Patient is alert, oriented x 3, equal unlabored respirations, skin warm/dry/pink. 23:45 Reassessment: Patient appears in no apparent distress at this time. No changes from tm6 previously documented assessment. Patient and/or family updated on plan of care and expected duration. Pain level reassessed. Patient is alert, oriented x 3, equal unlabored respirations, skin warm/dry/pink. 08/03 01:29 Reassessment: Patient appears in no apparent distress at this time. No changes from tm6 previously documented assessment. Patient and/or family updated on plan of care and expected duration. Pain level reassessed. Patient is alert, oriented x 3, equal unlabored respirations, skin warm/dry/pink. 01:30 Reassessment: report attempted, no answer. tm6 02:00 Reassessment: report given to Isaiah MEJIA at [facility]. tm6 03:20 Reassessment: Patient appears in no apparent distress at this time. No changes from tm6 previously documented assessment. Patient and/or family updated on plan of care and expected duration. Pain level reassessed. Patient is alert, oriented x 3, equal unlabored respirations, skin warm/dry/pink. 03:21 Reassessment: patient's brief checked, completely dry. tm6 03:21 Reassessment: patient picked up by EMS. tm6 Vital Signs: 08/02 16:54 BP 132 / 70; Pulse 69; Resp 16 S; Temp 98.6(O); Pulse Ox 95% on R/A; aa5 19:35 BP 152 / 82; Pulse 77; Resp 14; Pulse Ox 95% on R/A; Pain 0/10; tm6 20:30 BP 137 / 66; Pulse 71; Pulse Ox 100% on R/A; tm6 21:39 BP 142 / 122; Pulse 72; Pulse Ox 97% on R/A; tm6 22:48 BP 126 / 68; Pulse 74; Pulse Ox 98% on R/A; tm6 23:45 BP 127 / 62; Pulse 75; Pulse Ox 97% on R/A; tm6 23:45 Pain 0/10; tm6 02/03 01:29 BP 99 / 50; Pulse 75; Pulse Ox 98% on R/A; Pain 0/10; tm6 01:31 Weight 74.84 kg; Height 6 ft. 2 in. ; tm6 03:20 BP 102 / 58; Pulse 74; Resp 18; Pulse Ox 99% on R/A; Pain 0/10; tm6 01:31 Body Mass Index 21.18 (74.84 kg, 187.96 cm) tm6 19:35 Pain Scale: Adult tm6 23:45 Pain Scale: Adult tm6 02/03 01:29 Pain Scale: Adult tm6 03:20 Pain Scale: Adult tm6 ED Course: 08/02 16:54 Patient arrived in ED. aa5 16:54 Arm band placed on. aa5 16:55 Triage completed. aa5 16:57 Jeny Joel PA-C is PHCP. sb4 16:57 Ubaldo Dominguez DO is Attending Physician. sb4 17:35 Stephanie sOorio is Primary Nurse. cp4 17:36 Bed in low position. Call light in reach. Side rails up X 1. cp4 17:36 No provider procedures requiring assistance completed. Inserted saline lock: 20 gauge cp4 in right forearm, using aseptic technique. Blood collected. 17:38 Chest Single View XRAY In Process Unspecified. EDMS 18:[address] In Process Unspecified. EDMS 19:35 Janis Clarke, ROBERTO is Primary Nurse. tm6 21:02 initiated transfer with [facility] and spoke with Sylvia. ty 08/03 00:16 Contacted [facility] for update and was advised that Patient info has been delivered to doctor mariano and waiting for the to review information and will call us once the review has been done. 02:08 Contacted [facility] for patient transfer, Confirmed, ETA 1 hour. ty 03:22 Provided Education on: need for transfer. tm6 03:22 Patient transferred, IV remains in place. tm6 Administered Medications: 08/02 23:59 Drug: doxepin (Sinequan) 100 mg PO once Route: PO; tm6 23:59 Drug: eszopiclone 3 mg PO once Route: PO; tm6 Medication: 17:36 VIS not applicable for this client. cp4 Outcome: 19:21 ER care complete, transfer ordered by sb4 08/03 03:21 Transferred by ground EMS to [facility] tm6 Condition: stable Instructed on the need for transfer, Demonstrated understanding of instructions, 03:27 Patient left the ED. tm6 Signatures: Dispatcher [employer] EDMS Skylar Donaldson, RN RN [id number] Jeny Joel, PA-C PA-C sb4 Stephanie Osorio cp4 Janis Clarke RN RN tm6 Abdiel Zee ty Corrections: (The following items were deleted from the chart) 08/02 21:39 21:39 BP 137 / 66; Pulse 71bpm; Pulse Ox 100% RA; tm6 tm6
[2023-08-03 04:01] VITALS: BP 102/58; TEMP 98.6; O2SAT 99
== END ==
LOC: ER 16:51
DX: I50.40 Unspecified combined systolic (congestive) and diastolic (congestive) heart failure (principal); I10 Essential (primary) hypertension; I25.2 Old myocardial infarction; E78.5 Hyperlipidemia, unspecified; Z86.73 Personal history of transient ischemic attack (TIA), and cerebral infarction without residual deficits
CPT/HCPCS: 36415; 71045; 71250; 80048; 83880; 84484; 85025

== ENCOUNTER → 2023-09-11 | Emergency (ER) | payer OTHER ==
[~2023-09-11] MED LIST changes: -DOXEPIN HCL 25 MG CAP ONE; -ESZOPICLONE 1 MG TAB ONE; +LIDOCAINE VISCOUS 2% 10ML ORAL SOLN ONE; +TDAP (DIPHTH,PERTUSS(ACELL),TET VAC) 0.5 ML VIAL IMVAC ONE
--- OUTSIDE RECORDS SUMMARY | 2023-09-11 08:15 | XMS REPORT | Continuity of Care Document ---
Author Name Unknown Address [address] [facility] [address] [place] [address] [facility] thconnect Address [address] [facility] [address] [place] [address] Care Team Providers Care Nut Threader Name Role Phone Cheikh Gutierrez Attending Clinician [...] s DA Active U 2021-07 00:00: 00 [facility] No Known Allergie s DA Active U 08-08 00:00: 00 [facility] No Known Allergie s DA Active U 08-08 00:00: 00 [facility] Encounters Start Date/Time End Date/Time Encounter Type Admission Type Attending Clinicians Care Facility Care Department Encounter ID Source 2022-05-30 01:41:00 2022-06-11 13:02:00 Inpatient EM Cheikh Gutierrez HCAPM INTE.02 [id number] [facility] 2022-05-31 07:53:00 2022-05-31 07:53:00 Outpatient Cheikh Gutierrez HCACL LABO [id number] [facility] Results Test Description Test Time Test Comments Results Result Co mments Source GLUCOSE BEDSIDE [id number] 21:09:00* Test Item Value Reference Range Interpretation Comme nts GLUCOSE BEDSIDE TESTING (hipolito t code = GLUBED) 140 mg/dL 70-110 H GLUCOSE BEDSIDE [id number] 17:24:00* Test Item Value Reference Range Interpretation Comme nts GLUCOSE BEDSIDE TESTING (hipolito t code = GLUBED) 161 mg/dL 70-110 H GLUCOSE BEDSIDE [id number] 12:02:00* Test Item Value Reference Range Interpretation Comme nts GLUCOSE BEDSIDE TESTING (hipolito t code = GLUBED) 174 mg/dL 70-110 H GLUCOSE BEDSIDE [id number] 08:11:00* Test Item Value Reference Range Interpretation Comme nts GLUCOSE BEDSIDE TESTING (hipolito t code = GLUBED) 206 mg/dL 70-110 H GLUCOSE BEDSIDE [id number] 20:56:00* Test Item Value Reference Range Interpretation Comme nts GLUCOSE BEDSIDE TESTING (hipolito t code = GLUBED) 185 mg/dL 70-110 H GLUCOSE BEDSIDE [id number] 16:18:00* Test Item Value Reference Range Interpretation Comme nts GLUCOSE BEDSIDE TESTING (hipolito t code = GLUBED) 77 mg/dL 70-110 N GLUCOSE BEDSIDE [id number] 11:27:00* Test Item Value Reference Range Interpretation Comme nts GLUCOSE BEDSIDE TESTING (hipolito t code = GLUBED) 206 mg/dL 70-110 H GLUCOSE BEDSIDE [id number] 20:22:00* Test Item Value Reference Range Interpretation Comme nts GLUCOSE BEDSIDE TESTING (hipolito t code = GLUBED) 111 mg/dL 70-110 H GLUCOSE BEDSIDE [id number] 17:12:00* Test Item Value Reference Range Interpretation Comme nts GLUCOSE BEDSIDE TESTING (hipolito t code = GLUBED) 189 mg/dL 70-110 H GLUCOSE BEDSIDE [id number] 11:37:00* Test Item Value Reference Range Interpretation Comme nts GLUCOSE BEDSIDE TESTING (hipolito t code = GLUBED) 140 mg/dL 70-110 H GLUCOSE BEDSIDE [id number] 08:13:00* Test Item Value Reference Range Interpretation Comme nts GLUCOSE BEDSIDE TESTING (hipolito t code = GLUBED) 86 mg/dL 70-110 N GLUCOSE BEDSIDE [id number] 21:00:00* Test Item Value Reference Range Interpretation Comme nts GLUCOSE BEDSIDE TESTING (hipolito t code = GLUBED) 105 mg/dL 70-110 N GLUCOSE BEDSIDE [id number] 16:42:00* Test Item Value Reference Range Interpretation Comme nts GLUCOSE BEDSIDE TESTING (hipolito t code = GLUBED) 164 mg/dL 70-110 H GLUCOSE BEDSIDE [id number] 12:33:00* Test Item Value Reference Range Interpretation Comme nts GLUCOSE BEDSIDE TESTING (hipolito t code = GLUBED) 142 mg/dL 70-110 H GLUCOSE BEDSIDE [id number] 07:44:00* Test Item Value Reference Range Interpretation Comme nts GLUCOSE BEDSIDE TESTING (hipolito t code = GLUBED) 131 mg/dL 70-110 H GLUCOSE BEDSIDE [id number] 20:25:00* Test Item Value Reference Range Interpretation Comme nts GLUCOSE BEDSIDE TESTING (hipolito t code = GLUBED) 147 mg/dL 70-110 H GLUCOSE BEDSIDE [id number] 17:00:00* Test Item Value Reference Range Interpretation Comme nts GLUCOSE BEDSIDE TESTING (hipolito t code = GLUBED) 181 mg/dL 70-110 H GLUCOSE BEDSIDE [id number] 11:40:00* Test Item Value Reference Range Interpretation Comme nts GLUCOSE BEDSIDE TESTING (hipolito t code = GLUBED) 160 mg/dL 70-110 H GLUCOSE BEDSIDE [id number] 07:25:00* Test Item Value Reference Range Interpretation Comme nts GLUCOSE BEDSIDE TESTING (hipolito t code = GLUBED) 129 mg/dL 70-110 H GLUCOSE BEDSIDE [id number] 22:36:00* Test Item Value Reference Range Interpretation Comme nts GLUCOSE BEDSIDE TESTING (hipolito t code = GLUBED) 157 mg/dL 70-110 H GLUCOSE BEDSIDE [id number] 12:18:00* Test Item Value Reference Range Interpretation Comme nts GLUCOSE BEDSIDE TESTING (hipolito t code = GLUBED) 178 mg/dL 70-110 H GLUCOSE BEDSIDE [id number] 08:12:00* Test Item Value Reference Range Interpretation Comme nts GLUCOSE BEDSIDE TESTING (hipolito t code = GLUBED) 122 mg/dL 70-110 H GLUCOSE BEDSIDE [id number] 05:55:00* Test Item Value Reference Range Interpretation Comme nts GLUCOSE BEDSIDE TESTING (hipolito t code = GLUBED) 146 mg/dL 70-110 H GLUCOSE BEDSIDE [id number] 22:17:00* Test Item Value Reference Range Interpretation Comme nts GLUCOSE BEDSIDE TESTING (hipolito t code = GLUBED) 154 mg/dL 70-110 H GLUCOSE BEDSIDE [id number] 17:19:00* Test Item Value Reference Range Interpretation Comme nts GLUCOSE BEDSIDE TESTING (hipolito t code = GLUBED) 170 mg/dL 70-110 H GLUCOSE BEDSIDE [id number] 11:47:00* Test Item Value Reference Range Interpretation Comme nts GLUCOSE BEDSIDE TESTING (hipolito t code = GLUBED) 139 mg/dL 70-110 H GLUCOSE BEDSIDE [id number] 06:51:00* Test Item Value Reference Range Interpretation Comme nts GLUCOSE BEDSIDE TESTING (hipolito t code = GLUBED) 97 mg/dL 70-110 N BASIC METABOLIC [id number] 04:49:00* Test Item Value Reference Range Interpretation [...] CA) 7.3 MG/DL 8.5-10.1 L CBC W/AUTO [id number] 04:10:00* Test Item Value Reference Range Interpretation [...] = MDIFF) NO DIFF/SCN CRITERIA GLUCOSE BEDSIDE [id number] 20:43:00* Test Item Value Reference Range Interpretation Comme nts GLUCOSE BEDSIDE TESTING (hipolito t code = GLUBED) 218 mg/dL 70-110 H GLUCOSE BEDSIDE [id number] 18:31:00* Test Item Value Reference Range Interpretation Comme nts GLUCOSE BEDSIDE TESTING (hipolito t code = GLUBED) 118 mg/dL 70-110 H GLUCOSE BEDSIDE [id number] 11:16:00* Test Item Value Reference Range Interpretation Comme nts GLUCOSE BEDSIDE TESTING (hipolito t code = GLUBED) 179 mg/dL 70-110 H GLUCOSE BEDSIDE [id number] 08:01:00* Test Item Value Reference Range Interpretation Comme nts GLUCOSE BEDSIDE TESTING (hipolito t code = GLUBED) 126 mg/dL 70-110 H CBC W/AUTO [id number] 06:17:00* Test Item Value Reference Range Interpretation [...] = MDIFF) NO DIFF/SCN CRITERIA GLUCOSE BEDSIDE [id number] 20:13:00* Test Item Value Reference Range Interpretation Comme nts GLUCOSE BEDSIDE TESTING (hipolito t code = GLUBED) 221 mg/dL 70-110 H GLUCOSE BEDSIDE [id number] 16:23:00* Test Item Value Reference Range Interpretation Comme nts GLUCOSE BEDSIDE TESTING (hipolito t code = GLUBED) 128 mg/dL 70-110 H GLUCOSE BEDSIDE [id number] 11:31:00* Test Item Value Reference Range Interpretation Comme nts GLUCOSE BEDSIDE TESTING (hipolito t code = GLUBED) 188 mg/dL 70-110 H GLUCOSE BEDSIDE [id number] 07:44:00* Test Item Value Reference Range Interpretation Comme nts GLUCOSE BEDSIDE TESTING (hipolito t code = GLUBED) 168 mg/dL 70-110 H CBC W/AUTO [id number] 02:01:00* Test Item Value Reference Range Interpretation [...] = MDIFF) NO DIFF/SCN CRITERIA GLUCOSE BEDSIDE [id number] 20:22:00* Test Item Value Reference Range Interpretation Comme nts GLUCOSE BEDSIDE TESTING (hipolito t code = GLUBED) 108 mg/dL 70-110 N GLUCOSE BEDSIDE [id number] 12:05:00* Test Item Value Reference Range Interpretation Comme nts GLUCOSE BEDSIDE TESTING (hipolito t code = GLUBED) 172 mg/dL 70-110 H CBC W/AUTO [id number] 09:34:00* Test Item Value Reference Range Interpretation [...] = MDIFF) NO DIFF/SCN CRITERIA GLUCOSE BEDSIDE [id number] 08:06:00* Test Item Value Reference Range Interpretation Comme nts GLUCOSE BEDSIDE TESTING (hipolito t code = GLUBED) 149 mg/dL 70-110 H GLUCOSE BEDSIDE [id number] 21:06:00* Test Item Value Reference Range Interpretation Comme nts GLUCOSE BEDSIDE TESTING (hipolito t code = GLUBED) 190 mg/dL 70-110 H GLUCOSE BEDSIDE [id number] 17:03:00* Test Item Value Reference Range Interpretation Comme nts GLUCOSE BEDSIDE TESTING (hipolito t code = GLUBED) 173 mg/dL 70-110 H THROMBOPLASTIN TIME [id number] 07:42:00* Test Item Value Reference Range Interpretation Comme nts THROMBOPLASTIN TIME PARTIAL (test code = PTT) 84.9 SECONDS 26-35 H TROP-I HIGH [id number] 05:07:00* Test Item Value Reference Range Interpretation [...] .Date & Time Test Performed: .CBC W/AUTO [id number] 04:52:00* Test Item Value Reference Range Interpretation [...] = MDIFF) NO DIFF/SCN CRITERIA THROMBOPLASTIN TIME [id number] 00:12:00* Test Item Value Reference Range Interpretation Comme nts THROMBOPLASTIN TIME PARTIAL (test code = PTT) 37.0 SECONDS 26-35 H PROTHROMBIN [id number] 23:24:00* Test Item Value Reference Range Interpretation [...] Infarction (to prevent recurrent infarct). TROP-I HIGH [id number] 18:28:00* Test Item Value Reference Range Interpretation [...] varyby method. Completed by Nursing: NOGLUCOSE BEDSIDE [id number] 16:45:00* Test Item Value Reference Range Interpretation Comme nts GLUCOSE BEDSIDE TESTING (hipolito t code = GLUBED) 188 mg/dL 70-110 H - MRI BRAIN W/O [id number] 15:22:00 [facility] 1950 Sex: M FAX: Eddi Guerra MD [phone] Camps: PM St: ADM FAX: Cheikh Gutierrez MD [phone] Name: FRAN SANTAMARIAland : 1950 Age/S: 71/M [address] [address] Unit #: [id number] Loc: [place] [address] Phys: Eddi Hoff MD Acct: [id number] Dis Date: Status: ADM IN PHONE #: [phone] Exam Date: 05/30/2022 1440 FAX #: Reason: possible cva EXAMS: CPT: [id number] MRI BRAIN W/O CONTRAST 06488 EXAM: - MRI BRAIN W/O CONTRAST CLINICAL [...] volume loss with associated ex vacuo dilation ofthe lateral ventricles. The major vessel T2 flow-voids [...] Signed Report (CONTINUED) FAX: Eddi Guerra MD [phone] Camps: PM St: ADM FAX: Cheikh Gutierrez MD [phone] Name: FRAN SANTAMARIA [facility] : 1950 Age/S: 71/M [address] [address] Unit #: [id number] Loc: [place] [address] Phys: Eddi Hoff MD Acct: [id number] Dis Date: Status: ADM IN PHONE #: [phone] Exam Date: 05/30/2022 1440 FAX #: Reason: possible cva EXAMS: CPT: [id number] MRI BRAIN W/O CONTRAST 68696 (Continued) at 1522 Reported and signed by: Jun Vincent D.O. CC: Eddi Hoff MD; Cheikh Gutierrez MD Technologist: Karsten Camacho RT(R)(CT)(MR) Transcribed Date/Time/By: 05/30/2022 (1522) :[email or web address] Orig Print D/T:S: 05/30/2022 (7531) PAGE 2 Signed ReportTHROMBOPLASTIN TIME [id number] 15:09:00* Test Item Value Reference Range Interpretation Comme nts THROMBOPLASTIN TIME PARTIAL (test code = PTT) 79.4 SECONDS 26-35 H GLUCOSE BEDSIDE [id number] 12:42:00* Test Item Value Reference Range Interpretation Comme nts GLUCOSE BEDSIDE TESTING (hipolito t code = GLUBED) 103 mg/dL 70-110 N GLUCOSE BEDSIDE [id number] 08:23:00* Test Item Value Reference Range Interpretation Comme nts GLUCOSE BEDSIDE TESTING (hipolito t code = GLUBED) 192 mg/dL 70-110 H GLYCOSYLATED HEMOGLOBIN [id number] 06:37:00* Test Item Value Reference Range Interpretation Comme nts GLYCOSYLATED HEMOGLOBIN (HA1 C) (test code = GLYHGB) 6.0 % A1C 0.0-5.7 H ESTIMATED AVERAGE GLUCOSE (t est code = EAG) 126 MG/DLest CBC W/AUTO [id number] 05:56:00* Test Item Value Reference Range Interpretation [...] PTT) 27.6 SECONDS 26-35 N BASIC METABOLIC [id number] 05:43:00* Test Item Value Reference Range Interpretation [...] = LDL) 43 MG/DL 0-129 N <100 VFHHNAJ86 0 - 129 NEAR OPTIMAL/ABOVE UJDKUUE355 - 159 UKCGGYKPDP418 - 189 HIGH>OR= 190 VERY HIGHNOTE THAT GUIDELINES ARE PROVIDED BY NATIONAL CHOLESTEROLEDUCATION PROGRAM ADULT TREATMENT PANEL III LDL/HDL (test code = LDL/HDL) 0.91 Ratio See_Comment L [Automated [employer] ge] The system which generated this result transmitted reference range: 1.48-3.22 Avg. The reference range was not used to interpret this result as normal/abnormal. TROP-I HIGH [id number] 04:54:00* Test Item Value Reference Range Interpretation [...] SEEN Indication for culture: Suprapubic PainBASIC METABOLIC [id number] 16:03:00 * Test Item Value Reference Range [...] 8.5-10.1 N Completed by Nursing: NOTROP-I HIGH [id number] 16:03:00* Test Item Value Reference Range Interpretation [...] varyby method. Completed by Nursing: NOTHROMBOPLASTIN TIME [id number] 15:44:00* Test Item Value Reference Range Interpretation Comme nts THROMBOPLASTIN TIME PARTIAL (test code = PTT) 28.9 SECONDS 26-35 N PROTHROMBIN [id number] 15:44:00* Test Item Value Reference Range Interpretation [...] Infarction (to prevent recurrent infarct). CBC W/AUTO [id number] 15:34:00* Test Item Value Reference Range Interpretation [...] MDIFF) NO DIFF/SCN CRITERIA - CT ANGIO [id number] 14:48:00 [facility]ALESName: FRAN SANTAMARIA [place] : 1950 Sex: M Name: FRAN SANTAMARIA : 1950 Age/S: 71 / M [address] [address] Unit #: [id number] Loc: [place] [address] Phys: Cami Salomon DO Acct: [id number] Dis Date: Status: REG ER PHONE #: [phone] Exam Date: 05/29/20221411 FAX #: Reason: ams EXAMS: CPT: [id number] CT ANGIO NECK [address]85[address] HISTORY: CVA Technique: Axial tomograms through the neck and brain were obtained after intravenous contrast utilizing a CTA protocol. Three-dimensional and multiplanar reformatted images are provided. Degree of stenosis is calculated based on NASCET criteria. One or more of the followingdose reduction techniques were used: Automated exposure control, [...] SANTAMARIA : 1950 Age/S: 71 / M [address] [address] Unit #: [id number] Loc: [place] [address] Phys: Cami Salomon DO Acct: [id number] Dis Date: Status: REG ER PHONE #: [phone] Exam Date: 05/29/20221411 FAX #: Reason: ams EXAMS: CPT: [id number] CT ANGIO NECK 78160 (Continued) anterior cerebral arteries and middle cerebral [...] 05/29/2022 (1448) t.ADALIDR.RXC2 Orig PrintD/T: S: 05/29/2022 (1760) PAGE 2 Signed Report- CT ANGIO [id number] 14:48:00 [facility] 1950 Sex: M Name: FRAN SANTAMARIA [facility] : 1950 Age/S: 71 / M [address] [address] Unit #: [id number] Loc: [place] [address] Phys: Cami Salomon DO Acct: [id number] Dis Date: Status: REG ER PHONE #: [phone] Exam Date: 05/29/2022 1415 FAX #: Reason: ams EXAMS: CPT: [id number] CT ANGIO HEAD 44187 HISTORY: CVA Technique: Axial tomograms through the [...] 1 Signed Report (CONTINUED) Name: FRAN SANTAMARIA [facility] [place] : 1950 Age/S: 71 / M [address] [address] Unit #: [id number] Loc: [place] [address] Phys: Cami Salomon DO Acct: [id number] Dis Date: Status: REG PHONE #: [phone] Exam Date: 05/29/2022 1415 FAX #: Reason: ams EXAMS: CPT: [id number] ANGIO HEAD 93726 (Continued) anterior cerebral arteries and middle cerebral arteries are patent b ilaterally. No aneurysm identified. No large vessel occlusion [...] M.D. CC: Cami Salomon DO Technolo gist:Carolyn Romerorembertopepper, RT,(R),(CT) CTDI: DLP: Trnscb Date/Time: 05/29/2022 (1448) t.SDR.RXC2 Orig PrintD/T: S: 05/29/2022 (1644) PAGE 2 Signed Report- XR CHEST 1 [id number] 14:44:00 [facility] : 1950 Sex: M Name: FRAN SANTAMARIA [facility] : 1950 Age/S: 71 / M [address] [address] Unit #: [id number] Loc: [place] [address] Phys: Cami Salomon DO Acct: [id number] Dis Date: Status: REG ER PHONE #: [phone] Exam Date: 05/29/2022 1421 FAX #: Reason: Code Stroke EXAMS: CPT: [id number] XR CHEST 1 V 20571 Fluoro Time: DAP (Gy m2): Air Kerma [...] PAGE 1 Signed Report Name: FRAN SANTAMARIA [facility] : 1950 Age/S: 71 / M [address] [address] Unit #: [id number] Loc: [place] [address] Phys: AimeCami Spence DO Acct: [id number] Dis Date: Status: REG ER PHONE #: [phone] Exam Date: 05/29/2022 1421 FAX #: Reason: Code Stroke EXAMS: CPT: [id number] XR CHEST 1 V 39477 Fluoro Time: DAP (Gy m2): Air Kerma (mGy): (Continued) Technologist: BK BROOKS Trncab Date/Time: 05/29/2022 (9163) CostaRXC2 PAGE 2 Signed Report- CT HEAD/BRAIN W/O [id number] 14:43:00 [facility] : 1950 Sex: M Name: FRAN SANTAMARIA [facility] : 1950 Age/S: 71 / M [address] [address] Unit #: [id number] [place]: [place] [address] Phys: Cami Salomon DO Acct: [id number] Dis Date: Status: REG ER PHONE #: [phone] Exam Date: 05/29/2022 1405 FAX #: Reason: ams EXAMS: CPT: [id number] CT HEAD/BRAIN W/O CONT 22262 Location code: H5 CT Brain Without Contrast [...] 1 Signed Report (CONTINUED) Name: FRAN SANTAMARIA [facility] : 1950 Age/S: 71 / M [address] [address] Unit #: [id number] Loc: [place] [address] Phys: Cami Salomon DO Acct: [id number] Dis Date: Status: REG ER PHONE #: [phone] Exam Date: 05/29/2022 1405 FAX #: Reason: ams EXAMS: CPT: [id number] CT HEAD/BRAIN W/O CONT 92960(Continued) at 1443 Reported and signed by: David Silverman M.D. CC: Cami Salomon DO Technologist:Carolyn Rizzo, RT,(R),(CT) CTDI: DLP: Trnscb Date/Time: 05/29/2022 (1443) t.SDR.DRB1 Orig Print D/T: S: 05/29/2022 (5306) PAGE 2 Signed ReportGLUCOSE BEDSIDE [id number] 07:59:00* Test Item Value Reference Range Interpretation Comme nts GLUCOSE BEDSIDE TESTING (hipolito t code = GLUBED) 191 mg/dL 70-110 H BASIC METABOLIC [id number] 05:11:00* Test Item Value Reference Range Interpretation [...] CA) 7.9 MG/DL 8.5-10.1 L CBC W/AUTO [id number] 05:01:00* Test Item Value Reference Range Interpretation [...] ode = MDIFF) NO DIFF/SCN CRITERIA URINALYSIS [id number] 21:02:00* Test Item Value Reference Range Interpretation [...] = LEUU) NEGATIVE Leuk/mcL NEGATIVE GLUCOSE BEDSIDE [id number] 20:47:00* Test Item Value Reference Range Interpretation Comme nts GLUCOSE BEDSIDE TESTING (hipolito t code = GLUBED) 199 mg/dL 70-110 H GLUCOSE BEDSIDE [id number] 17:00:00* Test Item Value Reference Range Interpretation Comme nts GLUCOSE BEDSIDE TESTING (hipolito t code = GLUBED) 219 mg/dL 70-110 H GLUCOSE BEDSIDE [id number] 13:26:00* Test Item Value Reference Range Interpretation Comme nts GLUCOSE BEDSIDE TESTING (hipolito t code = GLUBED) 185 mg/dL 70-110 H - MRI BRAIN W/O [id number] 11:53:00FAX: Cheikh Gutierrez MD [phone] Camps: PM St: ADM Name: FRAN SANTAMARIA [facility] : 1950 Age/S: 67/M [address] [address] Unit #: [id number] Loc: [address] [place] [address] Phys: Cheikh Gutierrez MD Acct:[id number] Dis Date: Status: ADM IN PHONE #: [phone] Exam Date: 08/09/2018 8615 FAX #: Reason: Brain Mass EXAMS: CPT: [id number] MRI BRAIN W/O CONTRAST 34337 Location: T 18 MRI brain, 08/09/18COMPARISON EXAM [...] lobe without associated edema. 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 This is of moderate size with cystic encephalomalacia. No acute vascular insult is identified in this patient. Chronic microvascular changes roxane n seen extending along the left ROUGHER FOR CEMENT territory. There is a tiny old lacunar infarct in the left ROUGHER FOR CEMENT territory. There is normal flow void involving [...] Signed Report (CONTINUED) FAX: Cheikh Gutierrez MD [phone] Camps: PM St: ADM --Name: FRAN SANTAMARIA [facility] : 1950 Age/S: 67/M [address] [address] Unit #: [id number] Loc: [address] [address] Phys: Cheikh Gutierrez MD Acct: [id number] Dis Date: Status: ADMIN PHONE #: [phone] Exam Date: 08/09/2018 1137 FAX #: Reason: Brain Mass EXAMS: CPT: [id number] MRI BRAIN W/O CONTRAST 30816 (Continued) No acute vascular insult. No intracranial hemorrhage. Oldvascular insult in particular the left FLY territory. Chronic microvascular changes elsewhere. at 1153 Reported and signed by: Daina Viera M.D. CC: Cheikh Gutierrez MD Technologist: Mainor Schreiber, RT(R)(CT) Transcribed Date/Time/By: 08/09/2018 (4195) :[email or web address] Orig Print D/T: S: 08/09/2018 (9664) PAGE 2 Signed ReportGLUCOSE BEDSIDE [id number] 07:25:00* Test Item Value Reference Range Interpretation Comme nts GLUCOSE BEDSIDE TESTING (hipolito t code = GLUBED) 170 mg/dL 70-110 H GLUCOSE BEDSIDE [id number] 22:47:00* Test Item Value Reference Range Interpretation Comme nts GLUCOSE BEDSIDE TESTING (hipolito t code = GLUBED) 207 mg/dL 70-110 H COMPREHENSIVE METABOLIC [id number] 20:45:00* Test Item Value Reference Range Interpretation [...] 75 Unit/L 50-136 N Completed by Nursing: [id number] 20:45:00* Test Item Value Reference Range Interpretation Comme nts MAGNESIUM (test code = MAG) 1.6 MG/DL 1.8-2.4 L Completed by Nursing: NONT PRO-BRAIN NATRIURETIC [id number] 20:45:00* Test Item Value Reference Range Interpretation Comme nts NT PRO-BRAIN NATRIURETIC PEP TI (test code = PROBNP) 559 PG/ML 0-100 H Completed by Nursing: [id number] 20:45:00* Test Item Value Reference Range Interpretation [...] Completed by Nursing: NO- CT HEAD/BRAIN W/O [id number] 20:36:00Name: FRAN SANTAMARIA [facility] : 1950 Age/S: 67 / M [address] [address] Unit #: [id number] Loc: [place] [address] Phys: Crissy Anders MD Acct: [id number] Dis Date: Status: REG ER PHONE #: [phone] Exam Date: 08/08/20182024 FAX #: Reason: RLE weakness; eval for stroke EXAMS: CPT: [id number] CT HEAD/BRAIN W/O CONT 48835 CT HEAD WITHOUT CONTRAST. HISTORY: RLE weakness; [...] 1 Signed Report (CONTINUED) [facility] [place] [facility] 1950 Age/S: 67 / M [address] [address] Unit #: [id number] Loc: [place] [address] Phys: Crissy Anders MD Acct: [id number] Dis Date: Status: REG ER PHONE #: [phone] Exam Date: 08/08/20182024 FAX #: Reason: RLE weakness; eval for stroke EXAMS: CPT: [id number] CT HEAD/BRAIN W/O CONT 33254 (Continued) at 2035 Reported and signed by: Hua Anaya M.D. CC: Crissy Anders MD Technologist:Damon Kat RT(R)(CT) CTDI: DLP: Trnscb Date/Time: 08/08/2018 (2035) BrunoR.SP17 Orig Print D/T: S: 08/08/2018 (2038) CTDI: DLP: PAGE 2 Signed Report- XR CHEST 1 [id number] 20:35:00Name: FRAN SANTAMARIA [facility] : 1950 Age/S: 67 / M [id number] [address] [place] Unit #: [id number] Loc: [place] [address] Phys: Crissy Anders MD Acct: [id number] Dis Date: Status: REG ER PHONE #: [phone] Exam Date: 08/08/20182029 FAX #: Reason: RLE weakness; eval for stroke EXAMS: CPT: [id number] XR CHEST 1 V 92662 Fluoro Time: DAP (Gy m2): Air Kerma [...] PAGE 1 Signed Report Name: FRAN SANTAMARIA : 1950 Age/S: 67 / M [id number] [address] [place] Unit #: [id number] Loc: [place] [address] Phys: Crissy Anders MD Acct: [id number] Dis Date: Status: REG ER PHONE #: [phone] Exam Date: 08/08/20182029 FAX #: Reason: RLE weakness; eval for stroke EXAMS: CPT: [id number] XR CHEST 1 V 62432 Fluoro Time: DAP (Gy m2): Air Kerma (mGy): (Continued) Technologist: Damon Kat RT(R)(CT) Trnscb Date/Time: 08/08/2018 (2034) [email or web address] Orig Print D/T: S: 08/08/2018 (2037) PAGE 2 Signed ReportCBC W/AUTO [id number] 20:22:00* Test Item Value Reference Range Interpretation [...] Notes Date/Time Note Provider Source 2022-06-10 18:02:00 [id number] iKVYDt6S1VkX0p2rjjTuTmOjjbjfz plF3Z74NRYpgW0quQ9zoSIkgwLc1950A68:02:00 [facility] ([facility])Wound Care Progress NoteREPORT#:[id number] REPORT STATUS: SignedDATE:06/10/22 TIME:1801 PATIENT: FRAN SANTAMARIA UNIT #: [id number]#: [id number] [address] [birth year] AGE: 71 SEX: M ATTEND: Cheikh Gutierrez MDADM AUTHOR: Yakov Kate MD * [...] status Consultants: cardiology at 1803 RPT #: [id number] OF REPORT PNProcedure xtdh9605-82-94S58:02:00L.FFXL98067279-3619VDZpfoq able for patient urtpUQEJRYTSDQSAAX3139-94-73E09:03:32 [facility] 2022-06-10 10:31:00 SI6053023445JzO4nV7l UDCWVWtkZaCvkUow8ViNlZqpCSzKP 7wBj0DJxvaOcAW1CE6CkHGarSvi0064-46-28Q55:31:00 [facility] ([facility])Hospitalist Progress NoteREPORT#:[id number] REPORT STATUS: SignedDATE:06/10/22 TIME:1031 PATIENT: FRAN SANTAMARIA UNIT #: [id number]#: [id number] [address]27-2SFR: 50 AGE: 71 SEX: M ATTEND: Cheikh [...] capillary refill, no cyanosis, no edemaMusculoskeletal: normal inspectionNeuro/CURRICULUM DEVELOPMENT COORDINATOR: right hemiparesis, alert, oriented X 3, normal [...] significant acute abnormality 2. Elevated troponin-type II AL trended troponin x3 Monitor on the telemetry [...] home with home health Likely discharge to personal-halfway Saturday -family agreeable at 1032 RPT #: [id number] OF REPORT PRProgress vspj5526-74-46O29:31:00L.QYGQ80436486-1952DBVkbcw able for patient asliWIBNCRDYKGKMYP5518-20-87D64:32:34 [facility] 2022-06-10 10:30:00 IM6070138983u5RlIwrp IlQmpZclJvtfO8sqW2BDOZhFwB7cD drJEBG8JycYOmGw/3eN7Yi+IEdg0229-99-46Z12:30:00 [facility] ([facility])Hospitalist Progress NoteREPORT#:[id number] REPORT STATUS: SignedDATE:06/10/22 TIME:1030 PATIENT: FRAN SANTAMARIA UNIT #: [id number]#: [id number] [address] AGE: 71 SEX: M ATTEND: [...] capillary refill, no cyanosis, no edemaMusculoskeletal: normal inspectionNeuro/CURRICULUM DEVELOPMENT COORDINATOR: right hemiparesis, alert, oriented X 3, normal [...] significant acute abnormality 2. Elevated troponin-type II AL trended troponin x3 Monitor on the telemetry [...] with case management at 1031 RPT #: [id number] OF REPORT PRProgress dhva7550-48-02P15:30:00L.KHCJ51088108-4356BPEkolv able for patient tldcIRBDQSJQJDMIUW9553-69-42Z08:32:03 [facility] 2022-06-09 18:15:00 IP86000756046D83lDO9 AGXlSFdetaiWX8UKWJqZdcyDGAgc6 KJznYYyNXT8SwlcZ5N2uED2MPKn0214-16-88R53:15:00 [facility] ([facility])Wound Care Progress NoteREPORT#:[id number] REPORT STATUS: SignedDATE:06/09/22 TIME:1814 PATIENT: FRAN SANTAMARIA UNIT #: [id number]#: [id number] [address] AGE: 71 SEX: M ATTEND: Cheikh Gutierrez [facility] AUTHOR: Yakov Kate MD * ALL edits [...] Altered mental status Consultants: cardiology at 1817 [facility] #: [id number] OF REPORT PNProcedure obff6002-80-33C73:15:00L.WETM37723445-9230HCLrnjj able for patient gdwnUGPQFZHFMDYAVH0819-20-39A12:17:32 [facility] 2022-06-08 21:09:00 FE5724063050vkKtlcyW 7fEsc+8o/GXqbrB99TqM65MwWn2go 2Ve7NEE1ouIg/EVu9/9nhpJSl6H8816-85-08X66:09:00 [facility] Progress NoteREPORT#:[id number] REPORT STATUS: SignedDATE:06/08/22 TIME:2108 PATIENT: FRAN SANTAMARIA UNIT #: [id number]#: [id number] [address] AGE: 71 SEX: M ATTEND: Cheikh Gutierrez [facility] AUTHOR: Yakov Kate MD * ALL edits [...] status Consultants: cardiology at 2110 RPT #: [id number] OF REPORT PNProcedure vctt3078-83-89P75:09:00L.GDSK99422911-5408GKQmbrh able for patient siieWSEDBETHHYAHBP7810-17-01H58:10:55 [facility] 2022-06-08 11:04:00 TT4625930430A52LENhy nfyW3kej4IkUUfA9MHVGXMP11qzvA LH7WFfmpjfgZUX+/dPvTHWAppsC6722-71-12W97:04:00 [facility] HospitalHospital[facility] Progress NoteREPORT#:[id number] REPORT STATUS: SignedDATE:06/08/22 TIME:1104 PATIENT: FRAN SANTAMARIA UNIT #: [id number]#: [id number] [address] AGE: 71 SEX: M ATTEND: Cheikh Gutierrez [facility] AUTHOR: Anneliese Eden MD * ALL edits [...] capillary refill, no cyanosis, no edemaMusculoskeletal: normal inspectionNeuro/CURRICULUM DEVELOPMENT COORDINATOR: right hemiparesis, alert, oriented X 3, normal [...] significant acute abnormality 2. Elevated troponin-type II AL trended troponin x3 Monitor on the telemetry [...] with case management at 1106 RPT #: [id number] OF REPORT PRProgress maox2526-99-37I01:04:00L.MZBO83041635-6720PSShltu able for patient jmprHXDIZYYJQNNFUY8037-40-81O44:07:09 [facility] 2022-06-08 09:12:00 HX6753235198L2fJz0Vk WDzT9VYQHerFIgAnYHRVTB/XQa0A4 rcFKmL+qFOmDClv/hNYqp+JtyTy3179-52-65G59:12:00 [facility] ([facility] Progress NoteREPORT#:[id number] REPORT STATUS: SignedDATE:06/08/22 TIME:911 PATIENT: FRAN SANTAMARIA UNIT #: [id number]#: [id number] [address]: [address]H887-8QYO: 50 AGE: 71 SEX: M ATTEND: Cheikh [...] ill-looking male, appear confused, hx provided by [facility]. The patient has PMH of CVA, AFib on Eliquis, CAD with prior PCI who presented to ED with abnormal speech. Initial Head imaging negative for acute IC finding. Troponin came back elevated and cardiology consultation is requested. Troponin: 160.5->223.5. EKG showed atrial fibrillation with controlled rate, no acute ST/T wave changes. The patient denies chest pain or SOB. CHARLIEA/sister Ayla Ace phone [phone]. Subjective: Denies any chest pain or shortness [...] ill-looking male, appear confused, hx provided by [facility]. The patient has PMH of CVA, AFib [...] CAD with prior stentleaning toward Type II AL in the setting of possible TIA or [...] daily Stop amlodipine CHARLIEA/sister Ayla Ace phone [phone]. No further cardiac workup. Outpatient follow-up with [...] with any questions or concerns. Sammie Johnson, [facility] WARD CLERK Dr. Sarah Chavez MD-Attending CardiologistSPeaceHealth [facility] Card[facility] at 1055 at 0614 RPT #: [id number] OF REPORT PRProgress bsqr7363-81-05M47:12:00L.VNNW66544083-2810TLIunvc able for patient exuwIUJXCQAROJVRYK1273-97-82T34:01:49 [facility] 2022-06-07 22:04:00 QX41831226799W5dxBBa p2feN0zR2GVAeDnwlSl6q2K92Ed7Q F18qoMZuUx+hp8BGMnmnFCJsyqb5920-24-79U86:04:00 [facility] ([facility])Wound Care Progress NoteREPORT#:[id number] REPORT STATUS: SignedDATE:06/07/22 TIME:2203 PATIENT: FRAN SANTAMARIA UNIT #: [id number]#: [id number] [address]: [address] AGE: 71 SEX: M ATTEND: Cheikh Gutierrez [facility] AUTHOR: Yakov Kate MD * ALL edits [...] status Consultants: cardiology at 2205 RPT #: [id number] OF REPORT PNProcedure bbnu1213-78-30I88:04:00L.PIYN56133989-4345LTNcrnr able for patient mgjjVMXREDCTDHAYPS8870-07-49J17:06:13 [facility] 2022-06-07 16:35:00 RK43410504029OFBf/l9 5NxJhLT76SnHhX8h9Gjxbgk9eyunS YU2a/eIt1kyZVaOU+vM7YGzHApa0076-36-27Q27:35:00 [facility] ([facility])Neurology Progress NoteREPORT#:[id number] REPORT STATUS: SignedDATE:06/07/22 TIME:1635 PATIENT: FRAN SANTAMARIA UNIT #: [id number]#: [id number] ROOM/BED: X571-8JNG: 50 AGE: 71 SEX: M ATTEND: Cheikh Gutierrez [facility] AUTHOR: Ramsey Marrero MD * ALL edits [...] the consult.05/31 stable; no evidence for new onpcbg45/2 review of MRI shows moderate to large area of encephalomalacia in Left superior fromtalarea + what appears to be a meningioma just posterior to this. Concern is that of seizure with postictal confusion. Will add depakote and follow as outpatient in view of difficulty of obtainingEEG on the weekend.06/07 eeg has much artifact but bifrontal slowing is noted at 1639 RPT #: [id number] OF REPORT PRProgress zprr6342-33-29S12:35:00L.ZGGO82602973-7392TCOsski able for patient bznmFPMMXRPGYFGXFA0154-59-96T02:39:46 [facility] 2022-06-07 15:07:00 AY4504586426nXM1+79l BpxngZB5Vgl8phMfSN8GBYisYNj6N rNSo6j8P2JeYmikHsqYIg14YoHZ3924-71-10F52:07:08381 8-0003 [facility] [address] [place] [id number] PATIENT NAME: FRAN SANTAMARIA ADMIT DATE: 05/30/22ACCOUNT NO: [id number] ROOM NO: S218 AGE: 71 REPORT TYPE: [...] Dictated: 06/07/2022 15:07:30Date Transcribed: 06/07/2022 21:39:34/Edenilson #: [id number] ID: [id number] by Ramsey Marrero MD On 07/25/2022 09:19:45 AM at 0919 PATIENT NAME: FRAN SANTAMARIA lylmldw5181-77-50T34:39:00L.RAKNE67334894-8672DAZ vailable for patient guguSGKOEKIUAEKNPK2371-70-93D07:20:20 [facility] 2022-06-07 11:22:00 PJ5769820914zxzkoXwD UIje0M7kyf89fQ1PM0r3dAvcm07Pu avvo9TMaCJzMfwQs5D1gTwYAT0X0182-90-13I12:22:00 [facility] ([facility])Hospitalist Progress NoteREPORT#:[id number] REPORT STATUS: SignedDATE:06/07/22 TIME:1121 PATIENT: FRAN SANTAMARIA UNIT #: [id number]#: [id number] ROOM/BED: V142-2JEK: 50 AGE: 71 SEX: M ATTEND: Cheikh Gutierrez [facility] AUTHOR: Anneliese Eden MD * ALL edits [...] capillary refill, no cyanosis, no edemaMusculoskeletal: normal inspectionNeuro/CURRICULUM DEVELOPMENT COORDINATOR: right hemiparesis, alert, oriented X 3, normal [...] significant acute abnormality 2. Elevated troponin-type II AL trended troponin x3 Monitor on the telemetry [...] with case management at 1124 RPT #: [id number] OF REPORT PRProgress nfzk4922-25-53Q71:22:00L.HOAP70644356-6341BPGlkcw able for patient vweyWDBWDVNGZUPYVX5930-85-76J50:24:49 [facility] 2022-06-07 09:30:00 FP7818018277PFAhm2Pr Q+8zvweOPdyI+R91StLna/GpSRugF YjOKnWAVr+RJsca0+kkPkhv9Kfh4030-53-26O72:30:00 [facility] ([facility])Infectious Dis. Progress NoteREPORT#:[id number] REPORT STATUS: SignedDATE:06/07/22 TIME:929 PATIENT: FRAN SANTAMARIA UNIT #: [id number]#: [id number] ROOM/BED: Q322-3HKI: 50 AGE: 71 SEX: M ATTEND: Cheikh Gutierrez [facility] AUTHOR: Evelyn Jiménez MD * ALL edits [...] painExtremities: no clubbing, no cyanosisMusculoskeletal: no joint swellingNeuro/CURRICULUM DEVELOPMENT COORDINATOR: altered mental statusSkin: Multiple signs of excoriations [...] off ABConsultants: cardiology at 1317 RPT #: [id number] OF REPORT PRProgress lnxb0857-04-38R85:30:00L.WQQT02751294-6776FOLtile able for patient kesbNKWPYHKKEXEWVS4466-65-87F46:17:26 [facility] 2022-06-06 22:46:00 RX1163536849f+oADrtD gQAVDSSiHGSdK8GVjOfOXXVmGDEl5 NZ0kPnaMQODnZ1q5eJNl23O0raq6606-41-09S99:46:00 [facility] ([facility])Wound Care Progress NoteREPORT#:[id number] REPORT STATUS: SignedDATE:06/06/22 TIME:2245 PATIENT: FRAN SANTAMARIA UNIT #: [id number]#: [id number] [address] AGE: 71 SEX: M ATTEND: Cheikh Gutierrez [facility] AUTHOR: Yakov Kate MD * ALL edits [...] status Consultants: cardiology at 2247 RPT #: [id number] OF REPORT PNProcedure wxvi2692-59-42Z74:46:00L.YORA27998981-4887TJAgsmi able for patient mmcgWQXSWHTSCRQJWE2439-84-74S14:47:56 [facility] 2022-06-06 14:53:00 OD4343007455wKtkvsxM Ktjsq7AA1y8coV1fMybS8nppCbF4X ycsRsQ6U1LFe7JTJnmWjBIeD6ub0180-77-11V11:53:00 [facility] ([facility] Progress NoteREPORT#:[id number] REPORT STATUS: SignedDATE:06/06/22 TIME:1453 PATIENT: FRAN SANTAMARIA UNIT #: [id number]#: [id number] [address] AGE: 71 SEX: M ATTEND: Cheikh Gutierrez [facility] AUTHOR: Sammie Johnson APRN * ALL edits [...] ill-looking male, appear confused, hx provided by [facility]. The patient has PMH of CVA, AFib on Eliquis, CAD with prior PCI who presented to ED with abnormal speech. Initial Head imaging negative for acute IC finding. Troponin came back elevated and cardiology consultation is requested. Troponin: 160.5->223.5. EKG showed atrial fibrillation with controlled rate, no acute ST/T wave changes. The patient denies chest pain or SOB. CHARLIEA/sister Ayla Ace phone [phone]. Subjective: Denies any chest pain or shortness of breath Objective:Vital SignsDate Temp Pulse Resp B/P B/P Mean Pulse Ox XhQ858/06-06/06 97.5-98.2 57-72 14-16 105-162/55-86 71.8-111.4 94-99 Current [...] ill-looking male, appear confused, hx provided by [facility]. The patient has PMH of CVA, AFib [...] CAD with prior stentleaning toward Type II AL in the setting of possible TIA or [...] daily Stop amlodipine CHARLIEA/sister Ayla Ace phone [phone]. No further cardiac workup. Outpatient follow-up with [...] with any questions or concerns. Sammie Johnson [facility] WARD CLERK Dr. Sarah Chavez MD-Attending CardiologistSPeaceHealth [facility] Cardiology at 1459 at 0508 RPT #: [id number] OF REPORT PRProgress npfp2766-40-81N04:53:00L.NXJU10991028-6712QMWgygk able for patient gtcbQUKHPQGQXFDSKJ7035-01-09C99:55:41 [facility] 2022-06-06 12:01:00 DZ1280988365KtyxukiM uvRFb9MHzg5BmqaCCGsCQUX1kvqqE 6PmKX94L2F6xFOtOk7o8r1zaCxa5598-84-20O88:01:00 [facility] ([facility])Hospitalist Progress NoteREPORT#:[id number] REPORT STATUS: SignedDATE:06/06/22 TIME:1201 PATIENT: FRAN SANTAMARIA UNIT #: [id number]#: [id number] [address]: [address] AGE: 71 SEX: M ATTEND: Cheikh Gutierrez [facility] AUTHOR: Cheikh Gutierrez MD * ALL edits [...] capillary refill, no cyanosis, no edemaMusculoskeletal: normal inspectionNeuro/CURRICULUM DEVELOPMENT COORDINATOR: right hemiparesis, alert, oriented X 3, normal [...] significant acute abnormality 2. Elevated troponin-type II AL trended troponin x3 Monitor on the telemetry [...] Family appealed discharge at 1208 RPT #: [id number] OF REPORT PRProgress dokg8297-84-33L32:01:00L.QYKU47468315-8362XHNowuz able for patient gatxMTLWKBVJJHJDPU9207-79-98O42:08:27 [facility] 2022-06-06 10:03:00 OV7085446898LhYkIlup 4hlaisapXyIhxpQhFA/EikABwVB+T llpsP3ltJpAz1syhOm+IhJpFlaf0743-06-81V70:03:00 [facility] ([facility])Infectious Dis. Progress NoteREPORT#:[id number] REPORT STATUS: SignedDATE:06/06/22 TIME:1003 PATIENT: FRAN SANTAMARIA UNIT #: [id number]#: [id number] [address]: [address] AGE: 71 SEX: M ATTEND: Cheikh Gutierrez [facility] AUTHOR: Evelyn Jiménez MD * ALL edits [...] Pulse Resp B/P B/P Mean Pulse Ox PeM669/-06/06 36.4-36.8 60-72 14-17 101-162/51-86 67.6-111.4 94-99 Last [...] painExtremities: no clubbing, no cyanosisMusculoskeletal: no joint swellingNeuro/CURRICULUM DEVELOPMENT COORDINATOR: altered mental statusSkin: Multiple signs of exciriations [...] off ABConsultants: cardiology at 1326 RPT #: [id number] OF REPORT PRProgress tyqu6201-27-11L08:03:00L.CPIA41919303-7570OCQqdbs able for patient zrgsYTMPJPKDQZSWXN8831-26-58X78:27:09 [facility] 2022-06-05 19:39:00 HO6631741167hu9ELRTN XoZScmJxSSBiJ/C5+xnCj4XHtoAme vd/ZeHXOwuJI/8gex/O4JAJorbs0797-82-64E68:39:00 [facility] ([facility])Wound Care Progress NoteREPORT#:[id number] REPORT STATUS: SignedDATE:06/05/22 TIME:1938 PATIENT: FRAN SANTAMARIA UNIT #: [id number]#: [id number] [address]: [address] AGE: 71 SEX: M ATTEND: Cheikh Gutierrez [facility] AUTHOR: Yakov Kate MD * ALL edits [...] status Consultants: cardiology at 1945 RPT #: [id number] OF REPORT PNProcedure uscx5141-12-41M01:39:00L.TRGA34297769-0754QTIomdm able for patient twctRYRWTFTMUYEGNG7322-42-33V76:45:37 [facility] 2022-06-05 14:40:00 QB7292277895JXBiWlF7 2JrpwJWcMyxZrC4/7g8DVfnL3owzw +MjU9xlCuA9WjT1Jd9Yg8YWle+S6381-74-30N65:40:00 [facility] Progress NoteREPORT#:[id number] REPORT STATUS: SignedDATE:06/05/22 TIME:1440 PATIENT: FRAN SANTAMARIA UNIT #: [id number]#: [id number] [address] AGE: 71 SEX: M ATTEND: Cheikh Gutierrez [facility] AUTHOR: Sammie Johnson APRN * ALL edits [...] pain or SOB. MPOA/sister Ayla Ace phone [phone]. Subjective: Denies any chest pain or shortness [...] ill-looking male, appear confused, hx provided by [facility]. The patient has PMH of CVA, AFib [...] CAD with prior stentleaning toward Type II AL in the setting of possible TIA or [...] daily Stop amlodipine BIANCA/sister Ayla Ace phone [phone]. No further cardiac workup. Outpatient follow-up with [...] with any questions or concerns. Sammie Johnson [facility] WARD CLERK Dr. Sarah Chavez MD-Attending CardiologistSPeaceHealth [facility] Cardiology at 1711 at 1000 RPT #: [id number] OF REPORT PRProgress ittn4029-04-42A50:40:00L.KDPH53346561-0452WBXcanw able for patient vuriGLZZGIWTZQGPCY9381-71-56R79:12:01 [facility] 2022-06-05 11:27:00 JX0929547304KbDuR2QG pl7JFzcipyS4o5wFoXaqZRWTxKGNO 395HKP9i1q5hfFImHe87wZ2Y/YT7448-44-18H67:27:00 [facility] ([facility])Infectious Dis. Progress NoteREPORT#:[id number] REPORT STATUS: SignedDATE:06/05/22 TIME:1127 PATIENT: FRAN SANTAMARIA UNIT #: [id number]#: [id number] [address]: [address]-8KQR: 50 AGE: 71 SEX: M ATTEND: Cheikh Gutierrez [facility] AUTHOR: Evelyn Jiménez MD * ALL edits [...] painExtremities: no clubbing, no cyanosisMusculoskeletal: no joint swellingNeuro/CURRICULUM DEVELOPMENT COORDINATOR: altered mental statusSkin: Multiple signs of scratching in the legs and armsPsychiatry: abnl judgment/insight Diagnosis, Assessment PlanFree Text A P:Laboratory Tests 06/03/22 0450:[Embedded Image Not Available] Imaging:MRI brain reviewed 05/30CXR reviewed 05/29 Assessment:1. Rash. UE/LE2. Encephalopathy. Plan:1. the clinical findings are less likely to be c/w scabies, possible bedbugs.2. Recommend infection control evaluation.3. Monitor CBC and temperature.4. wound careConsultants: cardiology at 1449 [facility] #: [id number] OF REPORT PRProgress eavs7932-16-24L36:27:00L.KLIL82280631-2294IIXqcxs able for patient wckyIPDDGOUNVLJABA5674-21-69E02:50:20 [facility] 2022-06-05 10:27:00 LO2052989645ytSQMvpO lH15ETdYi6FuIthc4UhmBzjE7ZVwz +PUSADffVkad0ezfoziT3ID+imS2113-73-40Z51:27:00 [facility] HospitalHospital[facility] Progress NoteREPORT#:[id number] REPORT STATUS: SignedDATE:06/05/22 TIME:1027 PATIENT: FRAN SANTAMARIA UNIT #: [id number]#: [id number] [address]: [address] AGE: 71 SEX: M ATTEND: Cheikh Gutierrez [facility] AUTHOR: Cheikh Gutierrez MD * ALL edits [...] capillary refill, no cyanosis, no edemaMusculoskeletal: normal inspectionNeuro/CURRICULUM DEVELOPMENT COORDINATOR: right hemiparesis, alert, oriented X 3, normal [...] significant acute abnormality 2. Elevated troponin-type II AL trended troponin x3 Monitor on the telemetry [...] placement is arranged at 1028 RPT #: [id number] OF REPORT PRProgress gbjk4832-84-04L23:27:00L.BGEV70378306-6332PEEpamm able for patient oebxSEAMNMJIUWBBXP6135-65-74L28:29:32 [facility] 2022-06-04 21:32:00 CJ89776395517IRLDHYo SbXhFG5COrDwf7hr3+bVVFGghV7w4 uktXxS5JIgtFpwsR2i/cPLiRYeF5313-02-41X92:32:00 [facility])Wound Care Consultation NoteREPORT#:[id number] REPORT STATUS: SignedDATE:06/04/22 TIME:2131 PATIENT: FRAN SANTAMARIA UNIT #: [id number]#: [id number] [facility] AGE: 71 SEX: M ATTEND: Cheikh [...] rubRespiratory: symmetric expansionExtremities: no edemaMusculoskeletal: fair muscle toneNeuro/CURRICULUM DEVELOPMENT COORDINATOR: disorientedSkin: lesions (multiple abrasions) Wound AssessmentWound Assessment [...] Altered mental status at 2225 RPT #: [id number] OF REPORT XTLczumjsbayzn7786-38-01Y61:32:00L.NOEZ95360097-1 281AVAvailable for patient jinbIBQUQXYMZCBTJE8329-33-61J32:25:34 [facility] 2022-06-04 14:23:00 BS6521269071pWTtyKw9 0mHslbgBHoqIVo08t6bb7rWYrmMoB MpDDkAtmYiJINSETQxn0VWGvDhd7340-83-95J25:23:00 [facility] ([facility])Hospitalist Progress NoteREPORT#:[id number] REPORT STATUS: SignedDATE:06/04/22 TIME:1423 PATIENT: FRAN SANTAMARIA UNIT #: [id number]#: [id number] [address] AGE: 71 SEX: M ATTEND: Cheikh Gutierrez [facility] AUTHOR: Cheikh Gutierrez MD * ALL edits [...] capillary refill, no cyanosis, no edemaMusculoskeletal: normal inspectionNeuro/CURRICULUM DEVELOPMENT COORDINATOR: right hemiparesis, alert, oriented X 3, normal [...] (Auto) (20.5 - 51.1 %) 13.6 L [place] % (Auto) (1.7 - 9.3 %) 10.3 H Eos % (Auto) (0.0 - 6.0 %) 4.9 Baso % (Auto) (0.0 - 2.0 %) 1.0 Neut # (Auto) (1.8 - 7.6 K/mm3) 4.2 Lymph # (Auto) (0.6 - 3.0 K/mm3) 0.8 [place] # (Auto) (0.2 - 1.5 K/mm3) 0.6 [...] significant acute abnormality 2. Elevated troponin-type II AL trended troponin x3 Monitor on the telemetry [...] placement is arranged at 1424 RPT #: [id number] OF REPORT PRProgress jpba5351-29-31L30:23:00L.PBSQ52763016-8208UKOmhja able for patient aqwvFYFTDSWQLVZPBH0346-12-75T38:25:01 [facility] 2022-06-04 09:10:00 [id number] tfGx9+pEc/WB7UBmUQ9pBsgJky7qT avtEqWGvxXF514sbDHLLldqHgua0012-61-97L89:10:00 [facility])Cardiology Progress NoteREPORT#:[id number] REPORT STATUS: SignedDATE:06/04/22 TIME:0910 PATIENT: FRAN SANTAMARIA UNIT #: [id number]#: [id number] ROOM/BED: W700-8WNN: 50 AGE: 71 SEX: M ATTEND: Cheikh Gutierrez [facility] AUTHOR: Sheree JuniorP * ALL edits or [...] assessment: no calf tenderness, no edemaMusculoskeletal: decreased ROMNeuro/CURRICULUM DEVELOPMENT COORDINATOR: alert (confused)Skin: poor skin turgorPsychiatry: abnl judgment/insight, [...] ill-looking male, appear confused, hx provided by [facility]. The patient has PMH of CVA, AFib [...] CAD with prior stentleaning toward Type II AL in the setting of possible TIA or [...] no congestive symptoms MPOA/sister Ayla Ace phone [phone]. No further cardiac workup. Outpatient follow-up with Dr. Chavez in 2 weeks. at 1104 at 1000 RPT #: [id number] OF REPORT PRProgress saif0281-91-15I61:10:00L.XGGN35479746-9833QESlrnw able for patient ycqtISEUNGYZHHZPCE5483-93-85C86:05:06 [facility] 2022-06-03 19:16:00 [id number]+CDHig cx4Ut2/D/YRDbO38WN+clk/f3HmNI 3VyMN71yrsCNGeGwovEExjtJaIY6157-46-96J97:16:00 [facility] ([facility])Infect Disease Consult NoteREPORT#:[id number] REPORT STATUS: SignedDATE:06/03/22 TIME:1915 PATIENT: FRAN SANTAMARIA UNIT #: [id number]#: [id number] ROOM/BED: Far[place].N710-2KSB: 50 AGE: 71 SEX: M ATTEND: Cheikh [...] residentAllergies:Coded Allergies:No Known Allergies (05/29/22) 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 at 1107 RPT #: [id number] OF REPORT HXWavsleiqhwrc6630-24-81U30:16:00L.[id number] 202AVAvailable for patient gfwrTUPCFQZCYLZJOX0512-88-54A59:07:46 [facility] 2022-06-03 11:15:00 [id number] APxC1Kn5ha0X4Q5LNi0LKpbGELlnx eamYBxpBbn66vPuNdhEzZ3oeiXJ5548-70-64Z02:15:00 [facility] ([facility] Progress NoteREPORT#:[id number] REPORT STATUS: SignedDATE:06/03/22 TIME:1115 PATIENT: FRAN SANTAMARIA UNIT #: [id number]#: [id number] [facility] AGE: 71 SEX: M ATTEND: Cheikh [...] or swellingRespiratory: aerating well, no distressExtremities: moves allNeuro/CURRICULUM DEVELOPMENT COORDINATOR: alert, oriented X 4, normal speech, EOMINeuro [...] (Auto) (20.5 - 51.1 %) 13.4 L [place] % (Auto) (1.7 - 9.3 %) 9.3 Eos % (Auto) (0.0 - 6.0 %) 7.9 H Baso % (Auto) (0.0 - 2.0 %) 1.0 Neut # (Auto) (1.8 - 7.6 K/mm3) 5.2 Lymph # (Auto) (0.6 - 3.0 K/mm3) 1.0 [place] # (Auto) (0.2 - 1.5 K/mm3) 0.7 [...] Supportive care.Consultants: cardiology at 2119 RPT #: [id number] OF REPORT PRProgress byxg3041-49-44S28:15:00L.QKPJ96577915-8650SHNayds able for patient eqfiZQFUBYCMSAYBRF4391-95-42D41:20:13 [facility] 2022-06-03 07:46:00 IH3813416119vErJUUnY 8o6rwQKzecXEDlcAmd4nDG6scK/XY 0JTp5eGlelv9jqXHs8ZoqCMPHnr8667-88-79P86:46:00 [facility] ([facility])Hospitalist Progress NoteREPORT#:[id number] REPORT STATUS: SignedDATE:06/03/22 TIME:0746 PATIENT: FRAN SANTAMARIA UNIT #: [id number]#: [id number] [facility] AGE: 71 SEX: M ATTEND: Cheikh [...] capillary refill, no cyanosis, no edemaMusculoskeletal: normal inspectionNeuro/CURRICULUM DEVELOPMENT COORDINATOR: right hemiparesis, alert, oriented X 3, normal [...] (Auto) (20.5 - 51.1 %) 13.4 L [place] % (Auto) (1.7 - 9.3 %) 9.3 Eos % (Auto) (0.0 - 6.0 %) 7.9 H Baso % (Auto) (0.0 - 2.0 %) 1.0 Neut # (Auto) (1.8 - 7.6 K/mm3) 5.2 Lymph # (Auto) (0.6 - 3.0 K/mm3) 1.0 [place] # (Auto) (0.2 - 1.5 K/mm3) 0.7 [...] significant acute abnormality 2. Elevated troponin-type II AL trended troponin x3 Monitor on the telemetry [...] - Consulted CM at 0748 RPT #: [id number] OF REPORT PRProgress uced9471-71-31J14:46:00L.YWLP13251770-9264FCDdtmm able for patient lumqJHUSAXVRXFWOBA7090-77-97H19:49:01 [facility] 2022-06-02 11:36:00 BZ7754289245Yt1Hqfcc k6Q1cHjoKWUf1J6Tzh2WxjrAEIpuI dn5Ghr/DWZfQMGtGx+QUNPjDm0B6077-98-93A80:36:00 [facility] ([facility])Hospitalist Progress NoteREPORT#:[id number] REPORT STATUS: SignedDATE:06/02/22 TIME:1136 PATIENT: FRAN SANTAMARIA UNIT #: [id number]#: [id number] [address] AGE: 71 SEX: M ATTEND: [...] capillary refill, no cyanosis, no edemaMusculoskeletal: normal inspectionNeuro/CURRICULUM DEVELOPMENT COORDINATOR: right hemiparesis, alert, oriented X 3, normal [...] abnormality neuro check 2. Elevated troponin-type II AL trend troponin x3, EKG x3 Monitor on [...] - Consult CM at 1138 RPT #: [id number] OF REPORT PRProgress ieqe1254-12-72V11:36:00L.VEBF23823454-7949MBDwmws able for patient fpceMZDKUGHJLJRTRX4014-84-78O42:38:49 [facility] 2022-06-02 10:42:00 TY4197954904+WuOiLNO 4bBR7yp+qWDgfmkxNSSSjsF3WFJSF dptxAfmtensOPNcdjKIOWuvHfYy2028-66-33J60:42:00 [facility] ([facility] Progress NoteREPORT#:[id number] REPORT STATUS: SignedDATE:06/02/22 TIME:1041 PATIENT: FRAN SANTAMARIA UNIT #: [id number]#: [id number] [address] AGE: 71 SEX: M ATTEND: Cheikh Gutierrez [facility] AUTHOR: Romy Marie MD * ALL edits [...] or swellingRespiratory: aerating well, no distressExtremities: moves allNeuro/CURRICULUM DEVELOPMENT COORDINATOR: alert, oriented X 4, normal speech, EOMINeuro [...] Down: Left. GaitGait comments:Deferred ResultsFindings/Data:Laboratory Tests 06/02 1613 112 0771 Chemistry POC Glucose (70 - 110 mg/dL) [...] (Auto) (20.5 - 51.1 %) 11.9 L [place] % (Auto) (1.7 - 9.3 %) 9.6 H Eos % (Auto) (0.0 - 6.0 %) 6.2 H Baso % (Auto) (0.0 - 2.0 %) 0.9 Neut # (Auto) (1.8 - 7.6 K/mm3) 4.6 Lymph # (Auto) (0.6 - 3.0 K/mm3) 0.8 [place] # (Auto) (0.2 - 1.5 K/mm3) 0.6 [...] fully oriented.Consultants: cardiology at 2212 RPT #: [id number] OF REPORT PRProgress ktmq7813-13-73N16:42:00L.NHPE35386781-3905YWNbvyn able for patient mufrOZCDEEZXSHRFQU2858-36-84K27:12:39 [facility] 2022-06-02 07:21:00 [id number] VI0bUAoSfd5p1pFWApZywj6eXaNRL E2NjPhdUVCEuCPAyrZzlQT9diK56316-59-35E68:21:39780 3-0019 [facility] [address] [place] [address] PATIENT NAME: FRAN SANTAMARIA ADMIT DATE: 05/30/22ACCOUNT NO: [id number] ROOM NO: [facility] AGE: 71 REPORT TYPE: 360 - QUERY RESPONSE DOCUMENT SEX: M ADMITTING PHYSICIAN: Cheikh Gutierrez MD ATTENDING PHYSICIAN: Cheikh Gutierrez MD Provider Query QUERY TEXT: Clarification Skin Integrity 360MD Query related questions should be directed to: ROBERTO [email or web address] Based on your clinical judgment, please further [...] Elva Valdez on 06/01/2022 12:38 PM at 0741 PATIENT NAME: FRAN SANTAMARIA noteL.NBV68433752-2086BURbqllzfjn for patient nxexKJADNXZCCUJQNY5470-96-54B86:22:14 [facility] 2022-06-01 15:41:00 [id number] 5patnS1KDjREn46gypXPP/rQ81Typ nWY3AfwP1fMb0YAOEmV1TWc6Neq7058-69-24K40:41:00 [facility])Neurology Progress NoteREPORT#:[id number] REPORT STATUS: SignedDATE:06/01/22 TIME:1541 PATIENT: FRAN SANTAMARIA UNIT #: [id number]#: [id number] ROOM/BED: S199-2STA: 50 AGE: 71 SEX: M ATTEND: Cheikh [...] (Auto) (20.5 - 51.1 %) 13.6 L [place] % (Auto) (1.7 - 9.3 %) 10.9 H Eos % (Auto) (0.0 - 6.0 %) 6.3 H Baso % (Auto) (0.0 - 2.0 %) 0.7 Neut # (Auto) (1.8 - 7.6 K/mm3) 4.0 Lymph # (Auto) (0.6 - 3.0 K/mm3) 0.8 [place] # (Auto) (0.2 - 1.5 K/mm3) 0.6 [...] the consult.05/31 stable; no evidence for new bubckr63/2 review of MRI shows moderate to large area of encephalomalacia in Left superior fromtalarea + what appears to be a meningioma just posterior to this. Concern is that of seizure with postictal confusion. Will add depakote and follow as outpatient in view of difficulty of obtainingEEG on the weekend. at 1914 RPT #: [id number] OF REPORT PRProgress nejc8758-29-46R74:41:00L.ZWUO53489165-8487OMSbpip able for patient aklqFAVUVWVIBPSCME3889-16-14H56:14:55 [facility] 2022-06-01 09:47:00 JB3112962553poBW4TTZ jmzhIf/dEEwSGgRP3+VWCf6b6fTE2 xWNkWDGBx1MEAa6P9V45EmUJpNm0171-02-12L60:47:00 [facility] ([facility])Hospitalist Progress NoteREPORT#:[id number] REPORT STATUS: SignedDATE:06/01/22 TIME:0947 PATIENT: FRAN SANTAMARIA UNIT #: [id number]#: [id number] [address]: [address]-3CLW: 50 AGE: 71 SEX: M ATTEND: Cheikh Gutierrez [facility] AUTHOR: Anneliese Eden MD * ALL edits [...] capillary refill, no cyanosis, no edemaMusculoskeletal: normal inspectionNeuro/CURRICULUM DEVELOPMENT COORDINATOR: right hemiparesis, alert, oriented X 3, normal [...] (Auto) (20.5 - 51.1 %) 13.6 L [place] % (Auto) (1.7 - 9.3 %) 10.9 H Eos % (Auto) (0.0 - 6.0 %) 6.3 H Baso % (Auto) (0.0 - 2.0 %) 0.7 Neut # (Auto) (1.8 - 7.6 K/mm3) 4.0 Lymph # (Auto) (0.6 - 3.0 K/mm3) 0.8 [place] # (Auto) (0.2 - 1.5 K/mm3) 0.6 [...] abnormality neuro check 2. Elevated troponin-type II AL trend troponin x3, EKG x3 Monitor on [...] [facility] - Consult at 0949 RPT #: [id number] OF REPORT PRProgress aipj1956-71-98D79:47:00L.UXFP19453250-2870JRHlofi able for patient pploQARTBRBBXDNVGV2165-61-08U64:49:35 [facility] 2022-06-01 08:41:00 PJ0039583178qNRB6tp8 c7x/t2P926NUyG/pnLg2ZO5JdloFT JK+IDUayjKZpRJC2e9A4yvhk0Jp6407-23-24D10:41:00 [facility] HospitalCard[facility] Progress NoteREPORT#:[id number] REPORT STATUS: SignedDATE:06/01/22 TIME:0841 PATIENT: FRAN SANTAMARIA UNIT #: [id number]#: [id number] [address] AGE: 71 SEX: M ATTEND: Cheikh Gutierrez [facility] AUTHOR: Sammie Johnson APRN * ALL edits [...] ill-looking male, appear confused, hx provided by [facility]. The patient has PMH of CVA, AFib on Eliquis, CAD with prior PCI who presented to ED with abnormal speech. Initial Head imaging negative for acute IC finding. Troponin came back elevated and cardiology consultation is requested. Troponin: 160.5->223.5. EKG showed atrial fibrillation with controlled rate, no acute ST/T wave changes. The patient denies chest pain or SOB. [facility]/sister Ayla Ace phone [phone]. Subjective: Denies any chest pain or shortness [...] ill-looking male, appear confused, hx provided by [facility]. The patient has PMH of CVA, AFib [...] CAD with prior stentleaning toward Type II AL in the setting of possible TIA or [...] daily Stop amlodipine CHARLIEA/sister Ayla Ace phone [phone]. No further cardiac workup. Outpatient follow-up with [...] with any questions or concerns. Sammie Johnson [facility] WARD CLERK Dr. Sarah Chavez MD-Attending CardiologistSPeaceHealth [facility] Card[facility] at 1120 at 1821 RPT #: [id number] OF REPORT PRProgress panr4541-23-85K09:41:00L.WZTY61852467-8306FNOajrq able for patient dctlEAULUUHGLECWPZ2918-16-22C76:21:07 [facility] 2022-05-31 15:33:00 BZ4069059889i+/v9E/H 02kruBSY/LvCgR3zZhX7dqHkOacvX t0wW9YXI0q0m6UFne0zOYJa2mrw4780-47-18P56:33:00 [facility])Neurology Progress NoteREPORT#:[id number] REPORT STATUS: SignedDATE:05/31/22 TIME:1533 PATIENT: FRAN SANTAMARIA UNIT #: [id number]#: [id number] [address] AGE: 71 SEX: M ATTEND: [...] (0.8 - 1.2 INR Unit) 1.12 PTT ([place]) (26 - 35 SECONDS) 84.9 H 37.0 [...] (Auto) (20.5 - 51.1 %) 14.4 L [place] % (Auto) (1.7 - 9.3 %) 9.1 Eos % (Auto) (0.0 - 6.0 %) 7.1 H Baso % (Auto) (0.0 - 2.0 %) 0.8 Neut # (Auto) (1.8 - 7.6 K/mm3) 4.0 Lymph # (Auto) (0.6 - 3.0 K/mm3) 0.9 [place] # (Auto) (0.2 - 1.5 K/mm3) 0.5 [...] for new stroke at 1744 RPT #: [id number] OF REPORT PRProgress ctbd6349-05-28V40:33:00L.GSDD83115925-3183GDVnltc able for patient kdpkVOMWMCAVYLCPFJ1463-20-41O08:45:07 [facility] 2022-05-31 14:55:00 KW4059708607MUn4ou0r JqpLUOM8Dkf+D446Lq1qYHCihDLlb pmPcoeect1q+I1yAa0IF8Vjb1iz4107-95-01Q37:55:00 [facility] ([facility])Hospitalist Progress NoteREPORT#:[id number] REPORT STATUS: SignedDATE:05/31/22 TIME:1455 PATIENT: FRAN SANTAMARIA UNIT #: [id number]#: [id number] [facility]MFA: 50 AGE: 71 SEX: M ATTEND: Cheikh [...] capillary refill, no cyanosis, no edemaMusculoskeletal: normal inspectionNeuro/CURRICULUM DEVELOPMENT COORDINATOR: right hemiparesis, alert, oriented X 3, normal [...] (Auto) (20.5 - 51.1 %) 14.4 L [place] % (Auto) (1.7 - 9.3 %) 9.1 Eos % (Auto) (0.0 - 6.0 %) 7.1 H Baso % (Auto) (0.0 - 2.0 %) 0.8 Neut # (Auto) (1.8 - 7.6 K/mm3) 4.0 Lymph # (Auto) (0.6 - 3.0 K/mm3) 0.9 [place] # (Auto) (0.2 - 1.5 K/mm3) 0.5 [...] abnormality neuro check 2. Elevated troponin-type II AL trend troponin x3, EKG x3 Monitor on [...] [facility] RPT #: [id number] OF REPORT PRProgress cvlj3469-45-94K35:55:00L.EBVW90775593-0401YHJytge able for patient kfguXTFBPKKZUGLNZG3297-33-78W53:58:26 [facility] 2022-05-31 10:46:00 TY02024668202J7OSF2M e89c+/hbc8u3x8M+vmok0VVc9OSzh Uki5NKi2/c5PWfDTfSDfNR0HtM52908-55-67D98:46:00 [facility])Discharge SummaryREPORT#:[id number] REPORT STATUS: SignedDATE:05/31/22 TIME:1046 PATIENT: FRAN SANTAMARIA UNIT #: [id number]#: [id number] [address]: [address]-1EVD: 50 AGE: 71 SEX: M ATTEND: Cheikh Gutierrez [facility] AUTHOR: Anneliese Eden MD * ALL edits [...] abnormality neuro check 2. Elevated troponin-type II AL trend troponin x3, EKG x3 Monitor on [...] abnormality neuro check 2. Elevated troponin-type II AL trend troponin x3, EKG x3 Monitor on [...] normal heart soundsGI: softMusculoskeletal: full range of motionNeuro/CURRICULUM DEVELOPMENT COORDINATOR: alert, no motor deficits Discharge Instructions PCPPCP:PCP: [...] Eden MD Patient is going to personal halfway, stable condition, total time 32 minutes at 1238 Addendum 2: 06/11/22 1109 by Anneliese Eden MD Patient is stable to be discharged today at 1109 RPT #: [id number] OF REPORT DSDischarge cbkkjbo3410-45-82Z21:46:00L.MKCB87873048-1044RXNo ailable for patient comuBLUCWOKWAFFHOU9734-53-90G25:49:57 [facility] 2022-05-31 09:04:00 CY1549735303WFSPG3cT PrQTh5+m4AkuzZKa9CYCtLfwh/MJF 6SRQh+SH1bnWQ4HyYtPNmKF87l66756-06-67L74:04:00 [facility])Cardiology Progress NoteREPORT#:[id number] REPORT STATUS: SignedDATE:05/31/22 TIME:0904 PATIENT: FRAN SANTAMARIA UNIT #: [id number]#: [id number] ROOM/BED: P107-2RUX: 50 AGE: 71 SEX: M ATTEND: Cheikh [...] assessment: no calf tenderness, no edemaMusculoskeletal: decreased ROMNeuro/CURRICULUM DEVELOPMENT COORDINATOR: alert (confused)Skin: poor skin turgorPsychiatry: abnl judgment/insight, [...] (Auto) (20.5 - 51.1 %) 14.4 L [place] % (Auto) (1.7 - 9.3 %) 9.1 Eos % (Auto) (0.0 - 6.0 %) 7.1 H Baso % (Auto) (0.0 - 2.0 %) 0.8 Neut # (Auto) (1.8 - 7.6 K/mm3) 4.0 Lymph # (Auto) (0.6 - 3.0 K/mm3) 0.9 [place] # (Auto) (0.2 - 1.5 K/mm3) 0.5 [...] CAD with prior stentleaning toward Type II AL in the setting of possible TIA or [...] daily Stop amlodipine MPOA/sister Ayla Ace phone [phone]. No further cardiac workup. Outpatient follow-up with Dr. Chavez in 2 weeks. at 1232 at 1821 RPT #: [id number] OF REPORT PRProgress utzw3645-21-69V62:04:00L.QWWI01114669-2610HKAcjrx able for patient vnzpRXCGSTOTXRGKQC0455-25-31B53:32:33 [facility] 2022-05-30 17:35:00 KE62418699406donYOrG UckbVb/bFBpdnUo8yP001NSY3lTaI 9dCRPfcitC9APGWZC0w5uohASVI1970-07-92C85:35:02512 0-0215 [facility] [address] [place] [address] PATIENT NAME: FRAN SANTAMARIA ADMIT DATE: 05/30/22ACCOUNT NO: [id number] ROOM NO: [facility] AGE: 71 REPORT TYPE: eECHOCARDIOGRAM REPORT SEX: M ADMITTING PHYSICIAN: Cheikh Gutierrez MD ATTENDING PHYSICIAN: Cheikh Gutierrez MD *[facility]*[address] [place], [place] [address]Zykdb Transthoracic Echocardiogram Patient: Fran Santamaria LStudy Date: 05/30/2022 BP: 131 / 85 [id number] 1950 Age: 71 Height: 74 in / 188 cmAccession#: [id number] Gender: M Weight: 73 lb / 33.2 kgBMI/BSA: 9.4 kg/m 2 / 1.27 m 2 *Ordering Physician: * Eddi Hoff *Interpreting Physician: * Sarah Chavez MD*Program Director: * Alice Slaughter Indications: NSTEMI. Study data: Transthoracic echocardiogram. Procedure: Transthoracicechocardiography was performed. Image quality was adequate. Rngwstws6Z, complete spectral Doppler, and color Doppler. Location: [...] at 1735 PATIENT NAME: FRAN SANTAMARIA :35:0 0L.JEP55203358-6900DHLgmntnlgc for patient gdglLLTMBKTFLARSSZ3961-70-83P41:36:02 [facility] 2022-05-30 12:01:00 RT7506844187hlm5bYnC dsGape8fP4hMBtwvv7SA16nZ3y/Dy TbLkw6r7yQPtmHG2YRp7RVkV6jU3847-73-09B70:01:00 [facility] ([facility])Neurology Consultation NoteREPORT#:[id number] REPORT STATUS: SignedDATE:05/30/22 TIME:1201 PATIENT: FRAN SANTAMARIA UNIT #: [id number]#: [id number] ROOM/BED: H474-7QGB: 50 AGE: 71 SEX: M ATTEND: Cheikh Gutierrez [facility] AUTHOR: Va Carroll INVESTIGATIONS CONSULTANT * ALL edits or amendments must be [...] status. Patient is accompanied by his assistance wqfztbl-in-huu. Reportedly sister stated she noticed a change [...] is to follow-up with neurologist at the [facility]. He has not beenseen by the neurologist there in a few years. Patient reports that the last timehe waled was 6 m4mzogc. History - Adult longitudinalPast medical history:Reports: Atrial fibrillation, Coronary artery disease, Hypertension, Ischemic stroke. Additional medical history:CVA, hypertension, atrial fibrillation, diabetes mellitus, coronary artery diseasePast surgical history:Reports: PCI. Family history:Reports: Diabetes. 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 Denies: dizziness, [...] or swellingRespiratory: aerating well, no distressExtremities: moves allNeuro/CURRICULUM DEVELOPMENT COORDINATOR: altered mental status, alert, normal speech, EOMINeuro [...] - 51.1 %) 14.0 L 7.6 L [place] % (Auto) (1.7 - 9.3 %) 12.2 H 9.4 H Eos % (Auto) (0.0 - 6.0 %) 9.6 H 1.2 Baso % (Auto) (0.0 - 2.0 %) 1.2 0.7 Neut # (Auto) (1.8 - 7.6 K/mm3) 4.1 6.9 Lymph # (Auto) (0.6 - 3.0 K/mm3) 0.9 0.7 [place] # (Auto) (0.2 - 1.5 K/mm3) 0.8 [...] 7.0 pH UNITS) 7.5 H Ur Specific [place] (1.005 - 1.030 SG) <=1.005 Urine Protein [...] consult. at 1532 at 1554 RPT #: [id number] OF REPORT UCOsouhfrmpbwm5014-43-09X42:01:00L.IWCT00684269-0 128AVAvailable for patient hclxEEGBZFZCQINYUE4693-17-91G86:33:28 [facility] 2022-05-30 10:51:00 BF4691427465f0Qa1pSY AhA09kmVdx5Jz7UPRRTVUw0LXx1/f /UJ0K5eBTUm//62m+dmu4MZfFFL5370-41-83Q56:51:00 [facility] HospitalClinical NoteREPORT#:[id number] REPORT STATUS: SignedDATE:05/30/22 TIME:1051 PATIENT: FRAN SANTAMARIA UNIT #: [id number]#: [id number] [address] AGE: 71 SEX: M ATTEND: Cheikh Gutierrez [facility] AUTHOR: Eddi Hoff MD * ALL edits or amendments must be made on the electronic/computer document * Clinical NoteNote: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.Patient has had multiple CVAs [...] is full code at 1053 RPT #: [id number] OF REPORT CLClinical epcq7427-75-67J33:51:00L.OQAX91516613-4977TQKsvwc able for patient rbdbQXZAPTUBCPKOES6062-34-32Y53:54:02 [facility] 2022-05-30 10:15:00 FL1237321511PzJeYYII khLPhpQNxOXQzIRGWXfed3iihazAC 9dyN5HajoAVsEj5XGxx/DJJD1kO3035-87-72S22:15:00 [facility])Cardiology ConsultationREPORT#:[id number] REPORT STATUS: SignedDATE:05/30/22 TIME:1015 PATIENT: FRAN SANTAMARIA UNIT #: [id number]#: [id number] [facility]-7RRL: 50 AGE: 71 SEX: M ATTEND: Cheikh Gutierrez [facility] AUTHOR: Sheree Junior * ALL edits or amendments must be made on the electronic/computer document * History of Present Illness HPIRequesting Clinician: Dr. Noriega for consult:Elevated troponinChief complaint:speech abnormalityPCP:PCP: No Primary or Family Physician HPI:71 YO male chronically ill-looking male, appear confused, hx provided by [facility]. The patient has PMH of CVA, AFib on Eliquis, CAD with prior PCI who presented to ED with abnormal speech. Initial Head imaging negative for acute IC finding. Troponin came back elevated and cardiology consultation is requested. Troponin: 160.5->223.5. EKG showed atrial fibrillation with controlled rate, no acute ST/T wave changes. The patient denies chest pain or SOB. MPOA/sister Ayla Ace phone [phone]. History - Adult longitudinalPast medical history:Reports: Atrial fibrillation, Coronary artery disease, Hypertension, Ischemic stroke. Additional medical history:CVA, hypertension, atrial fibrillation, diabetes mellitus, coronary artery diseasePast surgical history:Reports: PCI. Family history:Reports: Diabetes. 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 Objective GeneralVS/I O:Vital Signs: Date Time Temp [...] assessment: no calf tenderness, no edemaMusculoskeletal: decreased ROMNeuro/CURRICULUM DEVELOPMENT COORDINATOR: alertSkin: poor skin turgorPsychiatry: abnl judgment/insight, normal [...] (0.8 - 1.2 INR Unit) 1.12 PTT ([place]) (26 - 35 SECONDS) 27.6 28.9 PT [...] - 51.1 %) 14.0 L 7.6 L [place] % (Auto) (1.7 - 9.3 %) 12.2 H 9.4 H Eos % (Auto) (0.0 - 6.0 %) 9.6 H 1.2 Baso % (Auto) (0.0 - 2.0 %) 1.2 0.7 Neut # (Auto) (1.8 - 7.6 K/mm3) 4.1 6.9 Lymph # (Auto) (0.6 - 3.0 K/mm3) 0.9 0.7 [place] # (Auto) (0.2 - 1.5 K/mm3) 0.8 [...] 7.0 pH UNITS) 7.5 H Ur Specific [place] (1.005 - 1.030 SG) <=1.005 Urine Protein [...] ill-looking male, appear confused, hx provided by [facility]. The patient has PMH of CVA, AFib [...] CAD with prior stentleaning toward Type II AL in the setting of possible TIA or [...] 6. Hypertensioncontinue BB MPOA/sister Ayla Ace phone [phone]. Appreciate the referral. at 1448 at 1821 RPT #: [id number] OF REPORT UQPxmbpkaonocz1948-89-08Q67:15:00L.DVGY82413404-4 049AVAvailable for patient fbfaFMAAPHLXLGWXNO0980-98-23E04:48:41 [facility] 2022-05-30 02:35:00 KQ4163565403O6O7erju Hpy2h65pTt4H0hiRyjfnabwjrXosS iCPzlIfDpuCSY8Wr0GGs4qkLL6Q9476-53-26C22:35:00 [facility] ([facility])Hospitalist History PhysicalREPORT#:[id number] REPORT STATUS: SignedDATE:05/30/22 TIME:0235 PATIENT: FRAN SANTAMARIA UNIT #: [id number]#: [id number] [facility] AGE: 71 SEX: M ATTEND: Cheikh Gutierrez [facility] AUTHOR: Lucas Cueto * ALL edits or [...] Allergies:Coded Allergies:No Known Allergies (05/29/22) 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 Left frontal encephalomalacia unchanged. Impression By: Toul Silverman M.D.CAT SCAN - CT ANGIO NECK [...] tPA or neuro intervention h/o massive CVA n5bdpfj head CT/CTA ruled out neuro vitals Hemoglobin [...] drip. at 0513 at 1405 RPT #: [id number] OF REPORT HPHistory and physical dntzgrcngsj4211-28-12S68:35:00L.[id number] AVAvailable for patient ixioNCPFDCCFUAHFWA4886-28-29J98:07:20 [facility] 2022-05-29 13:59:00 [id number] lfK3ahn9iR45W9SkQw3ZLx99xVAW2 oega5TnKrqeOzI8AGyx54i18fKY3050-00-37R37:59:00 [facility] ([facility])EMERGENCY PROVIDER REPORTREPORT#:[id number] REPORT STATUS: SignedDATE:05/29/22 TIME:1359 PATIENT: FRAN SANTAMARIA Farheen UNIT #: [id number]#: [id number] ROOM/BED: FarheenC582-6ZCH: 50 AGE: 71 SEX: M PCP PHYS: [...] spoke with the patient's sister (Clarice Ace [phone]). The patient waslast seen at his normal [...] (0.8 - 1.2 INR Unit) 1.12 PTT ([place]) (26 - 35 SECONDS) 28.9 PT Patient/Control [...] (Auto) (20.5 - 51.1 %) 7.6 L [place] % (Auto) (1.7 - 9.3 %) 9.4 H Eos % (Auto) (0.0 - 6.0 %) 1.2 Baso % (Auto) (0.0 - 2.0 %) 0.7 Neut # (Auto) (1.8 - 7.6 K/mm3) 6.9 Lymph # (Auto) (0.6 - 3.0 K/mm3) 0.7 [place] # (Auto) (0.2 - 1.5 K/mm3) 0.8 [...] 7.0 pH UNITS) 7.5 H Ur Specific [place] (1.005 - 1.030 SG) <=1.005 Urine Protein [...] plan at 0139 at 0242 RPT #: [id number] OF REPORTEDEmergency department siqhbv8132-49-76X69:59:00L.PXPU74692807-2961CLNlf ilable for patient xhueBNIDIVZYQAXNCO4832-29-96J53:39:40 [facility] 2018-08-10 10:22:00 [id number] 53qQkRCkASInZFpiqsBoLZLI7bfCo 0m/j7lBvVafCQbrUrDk6psMeQ9VX9Mldy4213-06-93Q51:22 :00 [facility] Progress NoteREPORT#:[id number] REPORT STATUS: SignedDATE:08/10/18 TIME:1022 PATIENT: FRAN SANTAMARIA UNIT #: [id number]#: [id number] [address] AGE: 67 SEX: M ATTEND: [...] (Auto) (20.5 - 51.1 %) 14.0 L [place] % (Auto) (1.7 - 9.3 %) 11.1 H Eos % (Auto) (0.0 - 6.0 %) 8.9 H Baso % (Auto) (0.0 - 2.0 %) 0.5 Neut # (Auto) (1.8 - 7.6 K/mm3) 4.27 Lymph # (Auto) (0.6 - 3.0 K/mm3) 0.9 [place] # (Auto) (0.2 - 1.5 K/mm3) 0.7 [...] Chronic microvascularchanges elsewhere. Impression By: Wang - aDina Viera M.D. Results: labs reviewed, vital signs [...] getting discharged today. at 1024 RPT #: [id number] OF REPORT PRProgress Vcmn0422-42-22M14:22:00L.[id number] able for patient mneqKLPZPRUQGYKWOF7407-96-77P54:24:41 [facility] 2018-08-10 09:17:00 PUnojvgctjn1969588wu 6cQUCc/+M/Ei0dyOnfeZjhClhK40J PTmqqalnG+OwCcbV/uedI2T2dUDoYYAiz2640-90-46U76:17 :00 [facility] ([facility])Discharge SummaryREPORT#:[id number] REPORT STATUS: SignedDATE:08/10/18 TIME:916 PATIENT: FRAN SANTAMARIA UNIT #: [id number]#: [id number] [address] AGE: 67 SEX: M ATTEND: Cheikh Gutierrez AUTHOR: Jaydon Lester WARD CLERK * ALL edits or amendments must be [...] of DVTMusculoskeletal: full range of motion, normal inspectionNeuro/CURRICULUM DEVELOPMENT COORDINATOR: alert, oriented X 3, normal gait, normal speech, no motor deficits, no sensory deficitsGlasgow Coma Score: Timothy Coma Score: Response Value Timothy eyes: eyes open spontaneously 4 Goodman speech: oriented 5 Goodman motor: obeys commands 6 Total 15 Skin: [...] (Auto) (20.5 - 51.1 %) 14.0 L [place] % (Auto) (1.7 - 9.3 %) 11.1 H Eos % (Auto) (0.0 - 6.0 %) 8.9 H Baso % (Auto) (0.0 - 2.0 %) 0.5 Neut # (Auto) (1.8 - 7.6 K/mm3) 4.27 Lymph # (Auto) (0.6 - 3.0 0.9K/mm3) [place] # (Auto) (0.2 - 1.5 K/mm3) 0.7 [...] Results: labs reviewed at 0927 RPT #: [id number] OF REPORT DSDischarge fyyreqq0690-78-35W11:17:00L.[id number] ailable for patient ktntMWWTFOXNADDTDX8730-37-74P33:27:20 [facility] 2018-08-10 09:17:00 ZDgsojivtug36928628L zbDQoJmXebKBK8LXC3PwO86XgeszG eGu2/3MrFhjDvSIR0Amgpi9nFss5xEh/37160-46-04W86:17 :00 [facility]Dis[facility] SummaryREPORT#:[id number] REPORT STATUS: SignedDATE:08/10/18 TIME:916 PATIENT: FRAN SANTAMARIA UNIT #: [id number]#: [id number] [address] [birth year] AGE: 67 SEX: M ATTEND: Cheikh Gutierrez MDADM AUTHOR: Jaydon Lester NP * ALL edits or amendments must be made on the electronic/computer document * Jaydon Lester NP 08/10/18 0917:PCP PCPPCP:PCP: DOES_NOT KNOW [place] [facility] [place] InformationDate of admission:Observation Start Date: 08/08/18Date [...] of DVTMusculoskeletal: full range of motion, normal inspectionNeuro/CURRICULUM DEVELOPMENT COORDINATOR: alert, oriented X 3, normal gait, normal speech, no motor deficits, no sensory deficitsGlasgow Coma Score: Goodman Coma Score: Response Value Goodman eyes: eyes open spontaneously 4 Timothy speech: [...] (Auto) (20.5 - 51.1 %) 14.0 L [place] % (Auto) (1.7 - 9.3 %) 11.1 H Eos % (Auto) (0.0 - 6.0 %) 8.9 H Baso % (Auto) (0.0 - 2.0 %) 0.5 Neut # (Auto) (1.8 - 7.6 K/mm3) 4.27 Lymph # (Auto) (0.6 - 3.0 0.9K/mm3) [place] # (Auto) (0.2 - 1.5 K/mm3) 0.7 [...] reviewed at 0927 at 1656 RPT #: [id number] OF REPORT DSDischarge enrowqf0975-48-09Q57:17:00L.FMQH29290108-7698TBLk ailable for patient nahpYXGWJAESJAEOVG0123-46-26V85:56:07 [facility] 2018-08-09 12:06:00 UTcknitqpim7851278Yg 7603DaKb+WNIRd8gDDCbUD7lfEiMB eZIo0A7sBVNyNmUbN/hxMB+D3QxsxRONv3004-16-32S30:06 :00 [facility])Neurology Consultation NoteREPORT#:[id number] REPORT STATUS: SignedDATE:08/09/18 TIME:1206 PATIENT: FRAN SANTAMARIA UNIT #: [id number]#: [id number] [facility] [birth year] AGE: 67 SEX: M ATTEND: Cheikh [...] a walker ResultsFindings/Data:Laboratory Tests 08/09 08/08 08/08 0345 1646 2008 Chemistry Sodium (134 - 147 mmol/L) [...] (Auto) (20.5 - 51.1 %) 4.8 L [place] % (Auto) (1.7 - 9.3 %) 8.6 Eos % (Auto) (0.0 - 6.0 %) 1.0 Baso % (Auto) (0.0 - 2.0 %) 0.3 Neut # (Auto) (1.8 - 7.6 K/mm3) 10.02 H Lymph # (Auto) (0.6 - 3.0 K/mm3) 0.6 [place] # (Auto) (0.2 - 1.5 K/mm3) 1.0 [...] for the consult. at 1758 RPT #: [id number] OF REPORT HURotuthgjihce2845-87-25R36:06:00L.ZBRZ55971531-3 069AVAvailable for patient ryubQZBLMJQDOAUSWH6498-60-47Q22:58:23 [facility] 2018-08-09 09:35:00 AMezwpxoraf2747769LW dUNFKPUsxiV38DmAZEJs7U5EHB3Xm ZOAFQzREUU/fkBgSz+O/p92uWsvyK2CMu1439-24-03O86:35 :00 [facility] ([facility])History Physical - AdultREPORT#:[id number] REPORT STATUS: SignedDATE:08/09/18 TIME:934 PATIENT: FRAN SANTAMARIA UNIT #: [id number]#: [id number] ROOM/BED: 304[address]1DOB: [birth year] AGE: 67 SEX: M [...] range of motion, no peripheral edemaMusculoskeletal: decreased ROMNeuro/CURRICULUM DEVELOPMENT COORDINATOR: alertSkin: dry, no rashLymphatic: no lymphadenopathy ResultsFindings/Data:Laboratory Tests: 08/0904 4392008 Chemistry Sodium (134 - 147 mmol/L) 135 [...] (Auto) (20.5 - 51.1 %) 4.8 L [place] % (Auto) (1.7 - 9.3 %) 8.6 Eos % (Auto) (0.0 - 6.0 %) 1.0 Baso % (Auto) (0.0 - 2.0 %) 0.3 Neut # (Auto) (1.8 - 7.6 K/mm3) 10.02 H Lymph # (Auto) (0.6 - 3.0 K/mm3) 0.6 [place] # (Auto) (0.2 - 1.5 K/mm3) 1.0 [...] directive: Full code at 1809 RPT #: [id number] OF REPORT HPHistory and physical nitmvyffjtd0851-08-52P63:35:00L.[id number] AVAvailable for patient qnisGCTTXIRBENRNRJ8748-42-04N30:09:03 [facility] 2018-08-08 19:56:00 ROapwblqyvg5221245Nj 5kVLddIL6PjUOADocHZQoN4jIMFBL /MZ742i8jo0ipUlkMLOBw4K8eWFti/9uH4217-07-30F31:56 :00 [facility])EMERGENCY PROVIDER REPORTREPORT#:[id number] REPORT STATUS: SignedDATE:08/08/18 TIME:1955 PATIENT: FRAN SANTAMARIA UNIT #: [id number]#: [id number] [address] AGE: 67 SEX: M PCP [...] prior) Free Text HPI NotesFree Text HPI Hwxva59hg WM with PMH of HTN, DM, AFib, [...] (Auto) (20.5 - 51.1 %) 4.8 L [place] % (Auto) (1.7 - 9.3 %) 8.6 Eos % (Auto) (0.0 - 6.0 %) 1.0 Baso % (Auto) (0.0 - 2.0 %) 0.3 Neut # (Auto) (1.8 - 7.6 K/mm3) 10.02 H Lymph # (Auto) (0.6 - 3.0 K/mm3) 0.6 [place] # (Auto) (0.2 - 1.5 K/mm3) 1.0 [...] of the chest.Impression By: CostaRLA2 - Olegario mOalley M.D. Lab Imaging StatementLaboratory radiographic studies reviewed and considered in the medical decision-making. Point of Care TestingPulse Oximetry Pulse Ox % 97 On: Room air Interpretation Interpreted by oh Time 1928 ECG #1 InterpretationECG Documented in MUSE YesDate 08/08/18Time 1935Interpreted by ED physicianNL ECG Interpretation Normal rate, Normal sinus rhythm, No STEMI, Normal axisRate 88Conduction/Cambria RBBB - incomplete Portions of this section [...] 08/08/18 at 2144 at 2336 RPT #: [id number] OF REPORTHCA [facility] department fevsgw7963-22-47K77:56:00L.TOEH95006990-3807TBXtj ilable for patient lhmxPRXUVPCIDMDKVU2573-00-99K32:36:23 [facility] 2018-08-08 19:30:00 AXtbcbvlaaj5918869GV 86a0ZtypwEQxslmw5ofec7UqeApLG fh2EIbQPJipbogSdbmeIsgpnl4VguHwm7401-59-01D18:30 :[id number] [address] PATIENT NAME: FRAN SANTAMARIA ADMIT DATE: 08/08/18ACCOUNT NO: [id number] ROOM NO: [facility] AGE: 67 REPORT TYPE: eELECTROCARDIOGRAM SEX: M ADMITTING PHYSICIAN: Cheikh Gutierrez MD ATTENDING PHYSICIAN: Cheikh Gutierrez MD Order:[id number] Reason : (Not Selected) Test Date/Time Stamp:SatAug [...] Self Referred Confirmed by:AMANDA BONNER MD at 5660 PATIENT NAME: FRAN SANTAMARIA .[id number] AVAvailable for patient xauqLDHRGNVMOEBBGI4163-50-15D80:34:31 [facility]
[2023-09-11 08:41] LABS: Absolute Eosinophils 0.1 K/uL (0-0.5); Absolute Lymphocytes (CBC) 0.5 K/uL (0.7-4.9); Absolute Monocytes 0.5 K/uL (0.1-1.3); Absolute Neutrophil 3.5 K/uL (1.8-8.0); Basophils % 0.8 % (0-1.3); Eosinophils % 3.1 % (0-4.4); Hematocrit 26.1 % (39.6-49.0); Hemoglobin 8.7 g/dL (13.6-17.9); Lymphocytes % 10.5 % (15.3-44.8); MCHC 33.1 g/dL (32.0-36.0); MCV 78.6 fL (80-100); MPV 7.8 fL (7.6-11.3); Monocytes % 11.6 % (3.3-12.3); Nucleated Red Blood Cells % 0.1 % (0-0); Platelets 146 thou/uL (152-406); RBC Red Blood Cell Count 3.33 M/uL (4.33-5.43); Red Cell Distribution Width 26.8 % (12.1-15.2)
--- NOTE | 2023-09-11 08:42 | RAD REPORT ---
EXAM DESCRIPTION: CT - CTHCSPWOC - 09/11/2023 8:34 am CLINICAL HISTORY: Trauma, head and neck injury. fall COMPARISON: Neck Angio dated 01/11/2023; Ct Stroke Brain Wo Cont dated 01/20/2023 TECHNIQUE: Axial 5 mm thick images of the head were obtained. Axial 2 mm thick images of the cervical spine were obtained with sagittal and coronal reconstruction images generated and reviewed. All CT scans are performed using dose optimization technique as appropriate and may include automated exposure control or mA/KV adjustment according to patient size. FINDINGS: CT HEAD WITHOUT CONTRAST: No acute hemorrhage, hydrocephalus or extra-axial collection is identified.Gliosis of the left superi or cerebral hemisphere is noted, chronic. Old infarct also noted right cerebellum.No midline shift. Mild mucosal thickening of the sphenoid sinus likely chronic sinusitis. The paranasal sinuses and mas toids otherwise clear.The calvarium is intact. CT CERVICAL SPINE WITHOUT CONTRAST: No fracture or subluxation.Mild lower cervical degenerative changes.No prevertebral soft tissues swel ling is identified. The lungs are emphysematous. Carotid atherosclerosis bilaterally. IMPRESSION: No acute intracranial or cervical spine findings.
--- NOTE | 2023-09-11 08:58 | RAD REPORT ---
EXAM DESCRIPTION: RAD - Chest Single View - 09/11/2023 8:40 am CLINICAL HISTORY: fall injury Chest pain. COMPARISON: Chest Single View dated 08/02/2023; Chest Single View dated 07/28/2023; Chest Single View d ated 07/18/2023; Chest Single View dated 01/20/2023 FINDINGS: Portable technique limits examination quality. The lungs are emphysematous but grossly clear. The heart is normal in size. No displaced fractures. IMPRESSION: COPD.
[2023-09-11 09:02] LABS: Anion Gap 8.3 mEq/L (5.0-15.0); Potassium 4.3 mEq/L (3.5-5.1)
[2023-09-11 09:16] LABS: Anisocytosis 2+; Blood Morphology Comment NOTED (NOT SEEN); Burr Cells 1+; Platelet Estimate DECR; Polychromasia 1+; White Blood Cell Scan OK (OK)
--- NOTE | 2023-09-11 09:19 | ER ---
Nurse's Notes [facility] Name: Luis Antonio Santamaria Age: 72 yrs Sex: Male : 1950 Arrival Date: 09/11/2023 Time: 08:10 Bed 5 Private MD: Diagnosis: Laceration without foreign body of unspecified part of head;Abrasion of right hand;Fall on same level, unspecified Presentation: 09/10 08:18 Chief complaint: EMS states: pt is from [facility]. pt was reaching forward for kc6 something when he fell out of his wheelchair and face first. denies LOC. pt takes aspirin and apixaban daily. 4mg IV zofran given en route by EMS. Coronavirus screen: At this time, the client does not indicate any symptoms associated with coronavirus-19. Ebola Screen: No symptoms or risks identified at this time. Initial Sepsis Screen: Does the patient meet any 2 criteria? No. Patient's initial sepsis screen is negative. Does the patient have a suspected source of infection? No. Patient's initial sepsis screen is negative. Risk Assessment: Do you want to hurt yourself or someone else? Patient reports no desire to harm self or others. Onset of symptoms was September 11, 2023. Care prior to arrival: Medication(s) given: zofran 4 mg. 08:18 Method Of Arrival: EMS: [facility] 6 08:18 Acuity: DYLON 3 kc6 Triage Assessment: 08:20 General: Appears in no apparent distress. comfortable, well groomed, well developed, kc6 Behavior is calm, cooperative, appropriate for age. Pain: Complains of pain in forehead. EENT: No signs and/or symptoms were reported regarding the EENT system. Neuro: Level of Consciousness is awake, alert, obeys commands, Oriented to person, place, time, situation, Appropriate for age. Cardiovascular: Capillary refill < 3 seconds. Respiratory: Airway is patent Trachea midline Respiratory effort is even, unlabored, Respiratory pattern is regular, symmetrical. GI: No signs and/or symptoms were reported involving the gastrointestinal system. : No signs and/or symptoms were reported regarding the genitourinary system. Derm: Skin is healthy with good turgor, Skin is pink, warm \T\ dry. Injury Description: Laceration sustained to forehead is clean, jagged, was sustained 30-60 minutes ago. a small amount of bleeding noted at this time. Historical: - Allergies: 08:20 No Known Allergies; kc6 - PMHx: 08:20 BRAIN TUMOR; CVA x4; Hyperlipidemia; Hypertension; hyponatremia; Myocardial infarction; kc6 PVD; - Immunization history:: Adult Immunizations up to date. - Social history:: Smoking status: Patient denies any tobacco usage or history of. Screenin:22 [facility] ED Fall Risk Assessment (Adult) History of falling in the last 3 months, kc6 including since admission Yes- single mechanical fall (1 pt) Confusion or Disorientation No (0 pts) Intoxicated or Sedated No (0 pts) Impaired Gait Yes (1 pt) Mobility Assist Device Used Yes (1 pt) Altered Elimination No (0 pt) Score/Fall Risk Level 3 or more points = High Risk. Abuse screen: Denies threats or abuse. Denies injuries from another. Nutritional screening: No deficits noted. Tuberculosis screening: No symptoms or risk factors identified. Assessment: 08:22 Reassessment: please see triage. kc6 09:22 Reassessment: Patient appears in no apparent distress at this time. No changes from kc previously documented assessment. Patient and/or family updated on plan of care and expected duration. Pain level reassessed. Patient is alert, oriented x 3, equal unlabored respirations, skin warm/dry/pink. Vital Signs: 08:18 BP 110 / 61; Pulse 92; Resp 16 S; Pulse Ox 100% on R/A; Weight 74.84 kg (R); Height 6 kc6 ft. 2 in. (R); 09:04 BP 123 / 56; Pulse 80; Resp 16 S; Pulse Ox 100% on R/A; kc6 08:18 Body Mass Index 21.18 (74.84 kg, 187.96 cm) kc6 ED Course: 08:15 Patient arrived in ED. ec2 08:15 Herman Lott MD is Attending Physician. ec2 08:18 Kristie Downey, ROBERTO is Primary Nurse. kc6 08:20 Triage completed. kc6 08:20 Arm band placed on. kc6 08:22 Patient has correct armband on for positive identification. Bed in low position. Call [facility] light in reach. Side rails up X2. Client placed on continuous cardiac and pulse oximetry monitoring. NIBP monitoring applied. 08:22 Maintain EMS IV. Dressing intact. Good blood return noted. Site clean \T\ dry. Gauge \T\ catrachito 6 site: 18G LFA. Patient maintains SpO2 saturation greater than 95% on room air. 08:32 Initial lab(s) drawn, by me, sent to lab. jg11 08:33 CT Head C Spine In Process Unspecified. EDMS 08:42 CXR XRAY In Process Unspecified. EDMS 09:04 Assist provider with laceration repair on forehead that was between 2.6 to 7.5 cm using kc6 sutures. Set up tray. Performed by Herman Lott MD Dressed with 4X4s, Patient tolerated well. 09:36 spoke with [facility] for transfer to [facility] where patient currently bc6 lives. given an ETA around 30 minutes. 09:59 IV discontinued, intact, bleeding controlled, No redness/swelling at site. Pressure kc6 dressing applied. Administered Medications: 08:56 Drug: LET 3 ml - (Lidocaine Topical (4%) 1 application, Tetracaine Topical (0.5 %) 1 kc6 application, EPINEPHrine Intranasal (0.1 %) 1 application, Methylcellulose Ophthalmic 1 application) Topical once Route: Topical; Site: face; 09:05 Follow up: Response: No adverse reaction kc6 08:56 Drug: Boostrix Tdap IM 0.5 ml IM once; as a single dose Route: IM; Site: left gluteus; kc6 09:04 Follow up: Response: No adverse reaction kc6 Medication: 09:59 VIS not applicable for this client. kc6 Outcome: 09:19 Discharge ordered by . renee 09:59 Discharged to [facility]. kc6 09:59 Condition: good 09:59 Discharge instructions given to patient, Instructed on discharge instructions, follow up and referral plans. wound care, Demonstrated understanding of instructions, follow-up care, wound care, 09:59 Patient left the ED. kc6 Signatures: Dispatcher [employer] Kristie Hammonds, RN RN kc6 Rose Fish Edwin, MD MD ec2 Gonzalez, Jordan jg11
--- NOTE | 2023-09-11 09:19 | EDPHYS ---
Physician Documentation [facility] Name: Luis Antonio Santamaria Age: 72 yrs Sex: Male : 1950 Arrival Date: 09/11/2023 Time: 08:10 Bed 5 Private MD: ED Physician Herman Lott HPI: 09/10 08:16 This 72 yrs old Male presents to ER via Unassigned with complaints of fall ec2 and head injury . 08:16 Patient arrives today for evaluation after ground-level fall. Patient reportedly was ec2 leaning forward in the wheelchair, fell and struck his head. Patient reports no LOC, complaining of some head pain. Patient denies any vomiting. Patient reports no prodromal symptoms, no chest pain or difficulty breathing, denies abdominal pain.. Historical: - Allergies: 08:20 No Known Allergies; kc6 - PMHx: 08:20 BRAIN TUMOR; CVA x4; Hyperlipidemia; Hypertension; hyponatremia; Myocardial infarction; kc6 PVD; - Immunization history:: Adult Immunizations up to date. - Social history:: Smoking status: Patient denies any tobacco usage or history of. ROS: 08:17 Constitutional: as per hpi ec2 Exam: 08:17 Constitutional: GEN: NAD Head: Right forehead with stellate laceration, no skull ec2 deformities present. Eyes: EOMI Ears: External ears are normal. CV: regular rate LUNGS: no respiratory distress ABD: non-distended, soft, nontender, no guarding, not rigid SKIN: Laceration to the right forehead as above, abrasion to the right hand. NEURO: moves all extremities equally Vital Signs: 08:18 BP 110 / 61; Pulse 92; Resp 16 S; Pulse Ox 100% on R/A; Weight 74.84 kg (R); Height 6 kc6 ft. 2 in. (R); 09:04 BP 123 / 56; Pulse 80; Resp 16 S; Pulse Ox 100% on R/A; kc6 08:18 Body Mass Index 21.18 (74.84 kg, 187.96 cm) kc6 Laceration: 09:09 Wound Repair of 5cm ( 2.0in ) subcutaneous laceration to face. Distal ec2 neuro/vascular/tendon intact. Anesthesia: Topical anesthetic administered with 1% lidocaine. Wound prep: Moderate cleansing. Skin closed with 5-0 non-adherent using simple sutures and sterile technique. Dressed with non-adherent dressing. Patient tolerated well. MDM: 08:15 Patient medically screened. ec2 08:17 Data reviewed: vital signs. ED course: Patient arrives today for evaluation after ec2 ground-level fall. Examination remarkable well-appearing nontoxic in which was otherwise in no acute distress with traumatic findings notable. Will obtain CT scan of the head and C-spine as well as lab work to evaluate for process such as intracranial bleed, C-spine fracture, electrolyte disturbance, anemia, ACS. Will apply let to the lacerated area, will treat the patient's tetanus status as well.. 09:18 ED course: CBC shows anemia with a hemoglobin of 8.7. Metabolic profile shows slight ec2 hyponatremia with a sodium of 130, renal function with a GFR of 100. Troponin within normal ranges. CT scan of the head and C-spine without traumatic process. Chest x-ray shows no acute intrathoracic process. . 09:19 ED course: When compared to external records, anemia today seems similar. Will ec2 discharge home. Return precautions given. No traumatic process identified.. 09/10 08:16 Order name: CBC with Diff; Complete Time: 09:18 ec2 09/10 08:16 Order name: BMP; Complete Time: 09:18 ec2 09/10 08:16 Order name: Troponin High Sensitivity; Complete Time: 09:18 ec2 09/10 08:47 Order name: CBC Smear Scan; Complete Time: 09:18 EDMS 09/10 08:16 Order name: CT Head C Spine; Complete Time: 09:18 ec2 09/10 08:16 Order name: CXR XRAY; Complete Time: 09:18 ec2 09/10 08:16 Order name: EKG - Nurse/Tech; Complete Time: 08:56 ec2 Administered Medications: 08:56 Drug: LET 3 ml - (Lidocaine Topical (4%) 1 application, Tetracaine Topical (0.5 %) 1 kc6 application, EPINEPHrine Intranasal (0.1 %) 1 application, Methylcellulose Ophthalmic 1 application) Topical once Route: Topical; Site: face; 09:05 Follow up: Response: No adverse reaction kc6 08:56 Drug: Boostrix Tdap IM 0.5 ml IM once; as a single dose Route: IM; Site: left gluteus; kc6 09:04 Follow up: Response: No adverse reaction kc6 Disposition Summary: 09/11/23 09:19 Discharge Ordered Problem: new ec2 Symptoms: have improved ec2 Condition: Stable ec2 Diagnosis - Laceration without foreign body of unspecified part of head ec2 - Abrasion of right hand ec2 - Fall on same level, unspecified ec2 Followup: ec2 - With: Private Physician - When: - Reason: Re-evaluation by your physician Discharge Instructions: - Discharge Summary Sheet ec2 - Facial Laceration, Xple-vx-Jqtm ec2 Forms: - Medication Reconciliation Form ec2 - Thank You Letter ec2 - Antibiotic Education ec2 - Prescription Opioid Use ec2 - Patient Portal Instructions ec2 - Leadership Thank You Letter ec2 Signatures: Dispatcher [employer] Kristie Hammonds RN RN kc6 Herman Lott MD MD ec2
[2023-09-11 10:55] VITALS: BP 123/56; O2SAT 100
== END ==
LOC: ER 08:10
PROC: 0HQ1XZZ Repair Face Skin, External Approach (ICD-10-PCS; principal; 2023-09-11)
DX: S01.81XA Laceration without foreign body of other part of head, initial encounter (principal); S60.511A Abrasion of right hand, initial encounter; W05.0XXA Fall from non-moving wheelchair, initial encounter; Z86.011 Personal history of benign neoplasm of the brain
CPT/HCPCS: 36415; 70450; 71045; 72125; 80048; 84484; 85025; 93005